=== PATIENT | female | born 1950 | race Caucasian/White ===

== ENCOUNTER 2018-08-09 16:51 | Emergency (ER) | payer OTHER, SELFPAY ==
[2018-08-09] MEDS ORDERED: HYDROCODONE/APAP 10/325 TAB ONE (17:26)
--- NOTE | 2018-08-09 18:05 | RAD REPORT ---
EXAM DESCRIPTION: RAD - Elbow Left 3 View - 08/09/2018 5:42 pm CLINICAL HISTORY: Left elbow pain status post trauma FINDINGS: No fracture or dislocation is seen.
--- NOTE | 2018-08-09 18:06 | RAD REPORT ---
EXAM DESCRIPTION: RAD - Knee Left 3 View - 08/09/2018 5:42 pm CLINICAL HISTORY: Left knee pain status post injury FINDINGS: No fracture or dislocation is seen.
--- NOTE | 2018-08-09 18:24 | RAD REPORT ---
EXAM DESCRIPTION: Ribs Right - 08/09/2018 5:42 pm CLINICAL HISTORY: Right rib pain FINDINGS: No fracture is seen
--- NOTE | 2018-08-09 18:54 | EDPHYS ---
Physician Documentation [facility] Name: Bridgett Gotti Age: 68 yrs Sex: Female : 1950 Arrival Date: 08/09/2018 Time: 16:55 Bed 13 Private MD: ED Physician Andres White HPI: 08/09 17:09 This 68 yrs old Female presents to ER via Ambulatory with complaints of Fall jmm Injury. 17:09 Details of fall: The patient fell from an upright position, while walking. Onset: The jmm symptoms/episode began/occurred acutely, today. Associated injuries: The patient sustained left knee, left elbow, right side of the chest. This is a 68 year old female with a history of DM, HTN, RA, Lupus that presents to the ED after a fall which occurred earlier today. Patient denies head injury. Patient states she tripped over an extension cord, falling on her knees bilaterally. . Historical: - Allergies: 16:59 Bactrim; aj 16:59 Sulfa (Sulfonamide Antibiotics); aj - Home Meds: 16:59 lisinopril 10 mg Oral tab 2 tabs once daily [Active]; Norvasc Oral [Active]; Metformin aj Oral [Active]; Celexa Oral [Active]; - PMHx: 16:59 Diabetes - NIDDM; Hypertension; Rheumatoid Arthritis; Lupus; aj - PSHx: 16:59 Hysterectomy; Toe Surgery; Tonsillectomy; aj - Immunization history: Last tetanus immunization: - up to date. - Social history:: Smoking status: Patient/guardian denies using tobacco. - Ebola Screening: : Patient negative for fever greater than or equal to 101.5 degrees Fahrenheit, and additional compatible Ebola Virus Disease symptoms Patient denies exposure to infectious person Patient denies travel to an Ebola-affected area in the 21 days before illness onset No symptoms or risks identified at this time. ROS: 17:09 Constitutional: Negative for fever, chills, and weight loss. jmm 17:09 Respiratory: Negative for shortness of breath, cough, wheezing, and pleuritic chest pain, Abdomen/GI: Negative for abdominal pain, nausea, vomiting, diarrhea, and constipation. 17:09 Cardiovascular: Positive for chest pain, with movement. 17:09 MS/extremity: Positive for pain. 17:09 All other systems are negative. Exam: 17:09 Head/Face: atraumatic. Cardiovascular: Regular rate and rhythm. No edema appreciated [facility] 17:09 Constitutional: The patient appears in no acute distress, alert, awake. 17:09 Chest/axilla: Inspection: Palpation: tenderness, that is moderate. Vital Signs: 16:56 BP 213 / 113; Pulse 104; Resp 16; Temp 97.6; Pulse Ox 99% on R/A; Weight 85.73 kg; aj Height 5 ft. 1 in. (154.94 cm); 17:08 BP 195 / 84; Pulse 80; Resp 18; Pulse Ox 97% on R/A; hj 17:59 BP 192 / 82; Pulse 84; Resp 18; Pulse Ox 99% on R/A; hj 16:56 Body Mass Index 35.71 (85.73 kg, 154.94 cm) aj Hussein Coma Score: 16:56 Eye Response: spontaneous(4). Verbal Response: oriented(5). Motor Response: obeys aj commands(6). Total: 15. Trauma Score (Adult): 16:56 Eye Response: spontaneous(1); Verbal Response: oriented(1); Motor Response: obeys aj commands(2); Systolic BP: > 89 mm Hg(4); Respiratory Rate: 10 to 29 per min(4); Mamou Score: 15; Trauma Score: 12 MDM: 17:09 Patient medically screened. [facility] 18:50 Data reviewed: vital signs, nurses notes, radiologic studies, plain films. Counseling: courtney I had a detailed discussion with the patient and/or guardian regarding: the historical points, exam findings, and any diagnostic results supporting the discharge/admit diagnosis, radiology results, the need for outpatient follow up, to return to the emergency department if symptoms worsen or persist or if there are any questions or concerns that arise at home. Response to treatment: the patient's symptoms have markedly improved after treatment. ED course: Patient given incentive spirometry in the ED. Return precautions given. Patient understood and agree with the plan of care. . 08/09 17:18 Order name: Elbow Left 3 View XRAY; Complete Time: 18:06 [facility] 08/09 17:18 Order name: Knee Left 3 View XRAY; Complete Time: 18:08 [facility] 08/09 17:18 Order name: Ribs Right XRAY; Complete Time: 18:25 [facility] 08/09 18:27 Order name: INCENTIVE SPIROMETRY [facility] 08/09 18:43 Order name: RC INCENTIVE SPIROMETRY EDPR Administered Medications: 17:18 Drug: [place] 10 mg-325 mg 1 tabs Route: PO; 17:23 Follow up: Response: No adverse reaction; Pain is decreased Disposition: 08/09/18 18:53 Discharged to Home. Impression: Chest Wall Strain, Contusion of knee, Contusion of elbow. - Condition is Stable. - Discharge Instructions: Chest Contusion, Adult, Knee Pain. - Prescriptions for Ultracet 37.5- 325 mg Oral Tablet - take 1 tablet by ORAL route every 6 hours - for up to 5 days; do not exceed 8 tablets per day.; 20 tablet. - Medication Reconciliation Form, Thank You Letter, Antibiotic Education, Prescription Opioid Use form. - Follow up: Private Physician; When: 2 - 3 days; Reason: Recheck today's complaints, Continuance of care, Re-evaluation by your physician. - Notes: Please follow up with your primary care provider in 1 to 2 days for reevaluation. Please use incentive spirometer as directed. Return to the Emergency department if you develop increased pain, shortness of breath. fever or any other concering symptoms. Addendum: 08/12/2018 07:08 Co-signature as Attending Physician, Andres White MD I agree with the assessment and c monae plan of care. Signatures: Dispatcher [employer] EDMS Caroline Rodriguez RN RN aj Anderson, Corey, MD MD cha Mickail, Joel, PA PA [facility] Kevin Johansen RN RN Corrections: (The following items were deleted from the chart) 08/09 19:04 18:53 08/09/2018 18:53 Discharged to Home. Impression: Chest Wall Strain; Contusion of hj knee; Contusion of elbow. Condition is Stable. Forms are Medication Reconciliation Form, Thank You Letter, Antibiotic Education, Prescription Opioid Use. Follow up: Private Physician; When: 2 - 3 days; Reason: Recheck today's complaints, Continuance of care, Re-evaluation by your physician. courtney
--- NOTE | 2018-08-09 18:54 | ER ---
Nurse's Notes [facility] Name: Bridgett Gotti Age: 68 yrs Sex: Female : 1950 Arrival Date: 08/09/2018 Time: 16:55 Bed 13 Private MD: Diagnosis: Chest Wall Strain;Contusion of knee;Contusion of elbow Presentation: 08/09 16:56 Presenting complaint: Patient states: Trip and fall from standing at 1400 today. Pain aj to left knee, right arm, right shoulder, and sternum. Patient drove herself to hospital. Care prior to arrival: None. Mechanism of Injury: Fall from standing position. Trauma event details: Injury occurred in the [facility], Injury occurred: at home. Injury occurred: August 09, 2018 Injury occurred at: 14:00. 16:56 Method Of Arrival: Ambulatory aj 16:56 Acuity: LASHONDA 2 aj 17:07 Transition of care: patient was not received from another setting of care. Onset of hj symptoms was August 09, 2018. Risk Assessment: Do you want to hurt yourself or someone else?. Initial Sepsis Screen: Does the patient meet any 2 criteria? No. Patient's initial sepsis screen is negative. Does the patient have a suspected source of infection? No. Patient's initial sepsis screen is negative. Trauma Activation: Not Applicable Physician: ED Physician; Name: ; Notified At: ; Arrived At: Physician: General Surgeon; Name: ; Notified At: ; Arrived At: Physician: Radiology; Name: ; Notified At: ; Arrived At: Physician: Respiratory; Name: ; Notified At: ; Arrived At: Physician: Lab; Name: ; Notified At: ; Arrived At: Historical: - Allergies: 16:59 Bactrim; aj 16:59 Sulfa (Sulfonamide Antibiotics); aj - Home Meds: 16:59 lisinopril 10 mg Oral tab 2 tabs once daily [Active]; Norvasc Oral [Active]; Metformin aj Oral [Active]; Celexa Oral [Active]; - PMHx: 16:59 Diabetes - NIDDM; Hypertension; Rheumatoid Arthritis; Lupus; aj - PSHx: 16:59 Hysterectomy; Toe Surgery; Tonsillectomy; aj - Immunization history: Last tetanus immunization: - up to date. - Social history:: Smoking status: Patient/guardian denies using tobacco. - Ebola Screening: : Patient negative for fever greater than or equal to 101.5 degrees Fahrenheit, and additional compatible Ebola Virus Disease symptoms Patient denies exposure to infectious person Patient denies travel to an Ebola-affected area in the 21 days before illness onset No symptoms or risks identified at this time. Screenin:05 Abuse screen: Denies threats or abuse. Denies injuries from another. Nutritional hj screening: No deficits noted. Tuberculosis screening: No symptoms or risk factors identified. Fall Risk None identified. Primary Survey: 16:56 A: Airway: patent. Breathing/Chest: Respiratory pattern: regular, Respiratory effort: aj spontaneous, unlabored. Circulation: Skin color: pink, Skin temperature: warm, dry. Disability Alert. 17:06 Reassessment Airway Airway Patent Oxygen No O2 Oral cavity Clear +Gag reflex Trachea hj Midline Breathing/Chest Respiratory pattern Regular Respiratory effort Spontaneous Unlabored Breath sounds Clear Chest inspection Symmetrical Circulation Heart rhythm Sinus rhythm Heart tones Present Pulses Palpable Color Prichard Temperature Warm Dry Disability Alert. Secondary Survey: 16:56 HEENT: No deficits noted. Gastrointestinal: No deficits noted. : No signs and/or hj symptoms were reported regarding the genitourinary system. Musculoskeletal: Reports pain in left leg and right arm and left knee. Assessment: 16:56 General: Appears in no apparent distress. uncomfortable, Behavior is calm, cooperative, aj appropriate for age. Pain: Complains of pain in chest, right arm and left knee. Neuro: Level of Consciousness is awake, alert, obeys commands, Oriented to person, place, time, situation, Appropriate for age. Respiratory: Airway is patent Respiratory effort is even, unlabored, Respiratory pattern is regular, symmetrical. Derm: Skin is intact, is healthy with good turgor, Skin is pink, warm \T\ dry. normal. Musculoskeletal: Reports pain in chest, right arm and left knee. 17:15 Reassessment: Patient and/or family updated on plan of care and expected duration. Pain hj level reassessed. Patient is alert, oriented x 3, equal unlabored respirations, skin warm/dry/pink. xray taken. 18:11 Reassessment: Patient and/or family updated on plan of care and expected duration. Pain hj level reassessed. Patient is alert, oriented x 3, equal unlabored respirations, skin warm/dry/pink. awaiting results;. Vital Signs: 16:56 BP 213 / 113; Pulse 104; Resp 16; Temp 97.6; Pulse Ox 99% on R/A; Weight 85.73 kg; aj Height 5 ft. 1 in. (154.94 cm); 17:08 BP 195 / 84; Pulse 80; Resp 18; Pulse Ox 97% on R/A; hj 17:59 BP 192 / 82; Pulse 84; Resp 18; Pulse Ox 99% on R/A; hj 16:56 Body Mass Index 35.71 (85.73 kg, 154.94 cm) aj Hussein Coma Score: 16:56 Eye Response: spontaneous(4). Verbal Response: oriented(5). Motor Response: obeys aj commands(6). Total: 15. Trauma Score (Adult): 16:56 Eye Response: spontaneous(1); Verbal Response: oriented(1); Motor Response: obeys aj commands(2); Systolic BP: > 89 mm Hg(4); Respiratory Rate: 10 to 29 per min(4); Hussein Score: 15; Trauma Score: 12 ED Course: 16:55 Patient arrived in ED. aj 16:57 Triage completed. aj 16:59 Arm band placed on right wrist. Patient placed in an exam room. aj 17:01 Kevin Johansen, RN is Primary Nurse. hj 17:07 Patient has correct armband on for positive identification. Bed in low position. Call hj light in reach. Side rails up X 1. 17:07 Patient maintains SpO2 saturation greater than 95% on room air. hj 17:08 Devante Best PA is PHCP. [facility] 17:08 Andres White MD is Attending Physician. jmm 17:08 Thermoregulation: warm blanket given to patient. hj 17:39 Elbow Left 3 View XRAY In Process Unspecified. EDMS 17:39 Knee Left 3 View XRAY In Process Unspecified. EDMS 17:39 Ribs Right XRAY In Process Unspecified. EDMS 19:03 No provider procedures requiring assistance completed. Patient did not have IV access hj during this emergency room visit. Administered Medications: 17:18 Drug: [place] 10 mg-325 mg 1 tabs Route: PO; hj 17:23 Follow up: Response: No adverse reaction; Pain is decreased hj Intake: 19:03 PO: 200ml; Total: 200ml. hj Output: 19:03 Urine: 0ml; Total: 0ml. lora Outcome: 18:53 Discharge ordered by . courtney 19:03 Discharged to home ambulatory, with family. lora 19:03 Condition: stable 19:03 Discharge instructions given to patient, family, Instructed on discharge instructions, follow up and referral plans. medication usage, Demonstrated understanding of instructions, follow-up care, medications, Prescriptions given X 2. 19:04 Patient's length of stay was not longer than 2 hours. hj 19:04 Patient left the ED. lora Signatures: Dispatcher [employer] EDCaroline Weiner, RN RN Devante Talley PA PA jmm Joaquin, Henry RN RN lora Corrections: (The following items were deleted from the chart) 16:59 16:56 Acuity: LASHONDA 3 aj audrey
== END 2018-08-09 19:04 | disposition home or self-care (01) ==
LOC: ER 16:51
DX: S29.011A Strain of muscle and tendon of front wall of thorax, initial encounter (principal); S80.02XA Contusion of left knee, initial encounter; S50.02XA Contusion of left elbow, initial encounter; W18.09XA Striking against other object with subsequent fall, initial encounter; Y93.01 Activity, walking, marching and hiking; Y92.9 Unspecified place or not applicable; Z88.1 Allergy status to other antibiotic agents; Z88.2 Allergy status to sulfonamides; I10 Essential (primary) hypertension; E11.9 Type 2 diabetes mellitus without complications
CPT/HCPCS: 99284

== ENCOUNTER 2019-02-22 09:29 | Emergency (ER) | payer OTHER ==
[2019-02-22 10:19] LABS: Urine Blood 1+ (NEG); Urine Glucose TRACE (NEG); Urine Protein TRACE (NEG); Urine Specific Gravity 1.005 (1.005-1.030)
[2019-02-22] MEDS ORDERED: CEFTRIAXONE/SWI 1gm 1 GM/10 ML SYR ONE (10:24)
[2019-02-22] MEDS ORDERED: NA CHLORIDE 0.9% 1,000 ML ONE (10:24)
[2019-02-22] MEDS ORDERED: FENTANYL CITR 100 MCG/2 ML ONE (10:24)
[2019-02-22 10:29] LABS: Absolute Lymphocytes (CBC) 1.8 K/uL (0.7-4.9); Absolute Monocytes 0.6 K/uL (0.1-1.3); Absolute Neutrophil 2.8 K/uL (1.8-8.0); Basophils % 1.6 % (0-1.3); Eosinophils % 1.9 % (0-4.4); Hematocrit 40.7 % (36.0-45.0); Lymphocytes % 33.4 % (15.3-44.8); MPV 9.9 fL (7.6-11.3); Monocytes % 11.5 % (3.3-12.3); RBC Red Blood Cell Count 4.35 M/uL (3.86-4.86)
[2019-02-22 10:38] LABS: Urine Bacteria 20-50 /HPF (<20); Urine RBC <5 /HPF (NONE SEEN)
[2019-02-22 10:39] LABS: Urine Culture Reflex Order NOT NEEDED
[2019-02-22 10:39] LABS: Potassium 4.2 mmol/L (3.5-5.1)
--- NOTE | 2019-02-22 11:31 | RAD REPORT ---
EXAM DESCRIPTION: CT - Stone Protocol - 02/22/2019 11:15 am CLINICAL HISTORY: Flank pain. FLANK PAIN COMPARISON: Abdomen Pelvis Wo Contrast dated 05/05/2017 TECHNIQUE: Axial images were obtained without oral or IV contrast. Lack of contrast limits solid org an and vascular assessment. The [id number] spans the entirety of the system partially obscuring uppermost abdomen and lung bases. Coronal reformatted images were obtained and reviewed. All CT scans are performed using dose optimization technique as appropriate and may include automated exposure control or mA/KV adjustment according to patient size. FINDINGS: The lower lung winston are clear. The liver is mildly enlarged in size and nodular in contour suggesting underlying cirrhosis, mild. Th e spleen is normal in size. The pancreas and adrenal glands are normal. No pathologic lymphadenopathy in the abdomen or pelvis. No urinary tract stones or obstructive uropathy. No bowel obstruction, free air, free fluid or abscess. The appendix is not identified as a discrete s tructure, however, no secondary findings of appendicitis are identified. Moderate lumbosacral degenerative changes. IMPRESSION: No urinary tract stones or obstructive uropathy. Mild liver cirrhosis suspected.
[2019-02-22] MEDS ORDERED: KETOROLAC 30 MG/ML INJ ONE (11:58)
--- NOTE | 2019-02-22 12:48 | ER ---
Nurse's Notes [facility] Name: Bridgett Gotti Age: 68 yrs Sex: Female : 1950 Arrival Date: 02/22/2019 Time: 09:31 Bed 15 Private MD: Dudley Valero E Diagnosis: Urinary tract infection, site not specified;Muscle spasm of back Presentation: 02/22 09:39 Presenting complaint: Patient states: i am being treated for a kidney infection but tw2 last night my lower back on the right side started hurting. Transition of care: patient was not received from another setting of care. Onset of symptoms was February 22, 2019. Risk Assessment: Do you want to hurt yourself or someone else? Patient reports no desire to harm self or others. Initial Sepsis Screen: Does the patient meet any 2 criteria? No. Patient's initial sepsis screen is negative. Does the patient have a suspected source of infection? No. Patient's initial sepsis screen is negative. Care prior to arrival: None. 09:39 Method Of Arrival: Wheelchair tw2 09:39 Acuity: LASHONDA 3 tw2 Historical: - Allergies: 09:45 Sulfa (Sulfonamide Antibiotics); tw2 09:45 Bactrim; tw2 - Home Meds: 09:45 Lasix 20 mg Oral tab 1 tab once daily [Active]; lisinopril 20 mg Oral tab 1 tab once tw2 daily [Active]; Norvasc 10 mg Oral tab 1 tab once daily [Active]; metoprolol tartrate 50 mg Oral tab 1 tab once daily [Active]; metformin 1,000 mg Oral tr24 1 tab once daily [Active]; Trintellix 10 mg oral tab 1 tab once daily [Active]; nitrofurantoin macrocrystal 100 mg Oral cap 1 cap 2 times daily [Active]; melatonin 10 mg Oral tab [Active]; - PMHx: 09:45 Diabetes - NIDDM; Hypertension; Rheumatoid Arthritis; Lupus; tw2 - PSHx: 09:45 Toe Surgery; Hysterectomy; Tonsillectomy; tw2 - Immunization history:: Adult Immunizations. - Social history:: Smoking status: . - Ebola Screening: : Patient denies travel to an Ebola-affected area in the 21 days before illness onset. Screenin:10 Abuse screen: Denies threats or abuse. Nutritional screening: No deficits noted. tw2 Tuberculosis screening: No symptoms or risk factors identified. Fall Risk None identified. Assessment: 09:40 General: Appears uncomfortable, Behavior is calm, cooperative, appropriate for age. tw2 Pain: Complains of pain in left mid back and right mid back and right lower quadrant. Neuro: Level of Consciousness is awake, alert, obeys commands, Oriented to person, place, time, situation. Cardiovascular: Heart tones S1 S2 Patient's skin is warm and dry. Respiratory: Airway is patent Respiratory effort is even, unlabored, Respiratory pattern is regular, symmetrical, Breath sounds are clear bilaterally. GI: Reports lower abdominal pain. : No signs and/or symptoms were reported regarding the genitourinary system. EENT: No signs and/or symptoms were reported regarding the EENT system. Derm: No signs and/or symptoms reported regarding the dermatologic system. Musculoskeletal: Circulation, motion, and sensation intact. Range of motion: intact in all extremities, Reports pain in left mid back and right mid back. 11:02 Reassessment: Patient appears in no apparent distress at this time. Patient and/or tw2 family updated on plan of care and expected duration. Pain level reassessed. Patient is alert, oriented x 3, equal unlabored respirations, skin warm/dry/pink. 12:09 Reassessment: Patient appears in no apparent distress at this time. Patient and/or tw2 family updated on plan of care and expected duration. Pain level reassessed. Patient is alert, oriented x 3, equal unlabored respirations, skin warm/dry/pink. 13:15 Reassessment: Patient appears in no apparent distress at this time. Patient and/or tw2 family updated on plan of care and expected duration. Pain level reassessed. Patient is alert, oriented x 3, equal unlabored respirations, skin warm/dry/pink. Patient states feeling better. Vital Signs: 09:41 BP 166 / 87; Pulse 84; Resp 19; Temp 97.9(O); Pulse Ox 98% on R/A; Weight 83.46 kg (R); tw2 Height 5 ft. 1 in. (154.94 cm); Pain 10/10; 11:02 BP 169 / 79; Pulse 84; Resp 17; Pulse Ox 98% on R/A; tw2 12:09 BP 153 / 76; Pulse 82; Resp 17; Pulse Ox 98% on R/A; tw2 13:14 BP 150 / 76; Pulse 79; Resp 17; Pulse Ox 98% on R/A; Pain 6/10; tw2 09:41 Body Mass Index 34.77 (83.46 kg, 154.94 cm) tw2 ED Course: 09:31 Patient arrived in ED. rg4 09:31 Sadiq Mercado MD is Private Physician. rg4 09:31 Dudley Valero MD is Private Physician. rg4 09:33 Leah Hou FNP-C [facility]. snw 09:33 Zhao Madera MD is Attending Physician. snw 09:35 Bed in low position. Call light in reach. documentation manager on. Pulse ox on. NIBP on. tw2 09:39 Stephy Olivera, ILAN is Primary Nurse. tw2 09:41 Triage completed. tw2 09:41 Arm band placed on. tw2 10:00 Straight cath inserted, using sterile technique, 18 Fr. Specimen obtained. [employer] tw2 served as entry processor Returned clear yellow urine. Patient tolerated well. 10:15 Initial lab(s) drawn, by me, sent to lab. First set of blood cultures drawn by me. mh5 10:50 Inserted saline lock: 22 gauge in right forearm, using aseptic technique. Blood tw2 collected. 11:15 CT completed. Patient tolerated procedure well. Patient moved back from CT. bq 11:16 CT Stone Protocol In Process Unspecified. EDMS 12:47 Dudley Valero MD is Referral Physician. snw 13:16 No provider procedures requiring assistance completed. IV discontinued, intact, tw2 bleeding controlled, No redness/swelling at site. Pressure dressing applied. Administered Medications: 10:17 Drug: fentaNYL (PF) 50 mcg Route: IVP; Site: right forearm; tw2 11:46 Follow up: Response: No adverse reaction; Pain is unchanged, physician notified tw2 10:20 Drug: Rocephin 1 grams Route: IV; Rate: calculated rate; Site: right forearm; tw2 10:27 Follow up: Response: No adverse reaction; IV Status: Completed infusion tw2 10:29 Drug: NS 0.9% 1000 ml Route: IV; Rate: 1 bolus; Site: right forearm; tw2 12:15 Follow up: Response: No adverse reaction; IV Status: Completed infusion; IV Intake: tw2 1000ml 11:51 Drug: TORadol 30 mg Route: IVP; Site: right forearm; tw2 13:14 Follow up: Response: No adverse reaction; Pain is decreased tw2 Intake: 12:15 IV: 1000ml; Total: 1000ml. tw2 Outcome: 12:48 Discharge ordered by MD. garnica 13:17 Discharged to home ambulatory. tw2 13:17 Condition: stable 13:17 Discharge instructions given to patient, Instructed on discharge instructions, follow up and referral plans. no drinking with medication, no driving heavy equipment, medication usage, Demonstrated understanding of instructions, follow-up care, medications, Prescriptions given X 2. 13:17 Patient left the ED. tw2 Signatures: Dispatcher [employer] EDMS Leah Hou, ERNESTO-C CHEMICAL ENGINEER-CsnRoya Calero Tara, RN RN tw2 Maya Vincent 4 Veronica Finch [facility] Corrections: (The following items were deleted from the chart) 13:17 10:18 Patient did not have IV access during this emergency room visit. IV discontinued, tw2 Pressure dressing applied, mh5
--- NOTE | 2019-02-22 12:48 | EDPHYS ---
Physician Documentation [facility] Name: Bridgett Gotti Age: 68 yrs Sex: Female : 1950 Arrival Date: 02/22/2019 Time: 09:31 Bed 15 Private MD: Dudley Valero E ED Physician Zhao Madera HPI: 02/22 10:28 This 68 yrs old Female presents to ER via Wheelchair with complaints of Back snw Pain. 10:28 The patient presents with pain that is acute, with no known mechanism of injury. The snw symptoms are located in the left mid back. Onset: The symptoms/episode began/occurred suddenly, 6 day(s) ago, and became worse today, and became persistent. The pain radiates to the posterior aspect of right lateral abdomen and right lower quadrant. Associated signs and symptoms: Pertinent positives: dysuria. The problem was sustained pt went to PCP 2nd to UTI s/s, low grade temp, back pain. Pt was dx with UTI and given Macrobid po. Severity of symptoms: At their worst the symptoms were moderate. The patient has experienced similar episodes in the past. as noted. Historical: - Allergies: 09:45 Sulfa (Sulfonamide Antibiotics); tw2 09:45 Bactrim; tw2 - Home Meds: 09:45 Lasix 20 mg Oral tab 1 tab once daily [Active]; lisinopril 20 mg Oral tab 1 tab once tw2 daily [Active]; Norvasc 10 mg Oral tab 1 tab once daily [Active]; metoprolol tartrate 50 mg Oral tab 1 tab once daily [Active]; metformin 1,000 mg Oral tr24 1 tab once daily [Active]; Trintellix 10 mg oral tab 1 tab once daily [Active]; nitrofurantoin macrocrystal 100 mg Oral cap 1 cap 2 times daily [Active]; melatonin 10 mg Oral tab [Active]; - PMHx: 09:45 Diabetes - NIDDM; Hypertension; Rheumatoid Arthritis; Lupus; tw2 - PSHx: 09:45 Toe Surgery; Hysterectomy; Tonsillectomy; tw2 - Immunization history:: Adult Immunizations. - Social history:: Smoking status: . - Ebola Screening: : Patient denies travel to an Ebola-affected area in the 21 days before illness onset. ROS: 10:26 Eyes: Negative for injury, pain, redness, and discharge, ENT: Negative for injury, snw pain, and discharge, Neck: Negative for injury, pain, and swelling, Cardiovascular: Negative for chest pain, palpitations, and edema, Respiratory: Negative for shortness of breath, cough, wheezing, and pleuritic chest pain, : Negative for injury, bleeding, discharge, and swelling, MS/Extremity: Negative for injury and deformity, Skin: Negative for injury, rash, and discoloration, Neuro: Negative for headache, weakness, numbness, tingling, and seizure. 10:26 Constitutional: Positive for body aches, fever, malaise, poor PO intake. 10:26 Abdomen/GI: Positive for abdominal cramps. 10:26 Back: Positive for flank pain, on the right, radiated pain. Exam: 10:26 Constitutional: This is a well developed, well nourished patient who is awake, alert, snw and in no acute distress. Head/Face: Normocephalic, atraumatic. Eyes: Pupils equal round and reactive to light, extra-ocular motions intact. Lids and lashes normal. Conjunctiva and sclera are non-icteric and not injected. Cornea within normal limits. Periorbital areas with no swelling, redness, or edema. ENT: Nares patent. No nasal discharge, no septal abnormalities noted. Tympanic membranes are normal and external auditory canals are clear. Oropharynx with no redness, swelling, or masses, exudates, or evidence of obstruction, uvula midline. Mucous membranes moist. Neck: Trachea midline, no thyromegaly or masses palpated, and no cervical lymphadenopathy. Supple, full range of motion without nuchal rigidity, or vertebral point tenderness. No Meningismus. Chest/axilla: Normal chest wall appearance and motion. Nontender with no deformity. No lesions are appreciated. Cardiovascular: Regular rate and rhythm with a normal S1 and S2. No gallops, murmurs, or rubs. Normal PMI, no JVD. No pulse deficits. Respiratory: Lungs have equal breath sounds bilaterally, clear to auscultation and percussion. No rales, rhonchi or wheezes noted. No increased work of breathing, no retractions or nasal flaring. Skin: Warm, dry with normal turgor. Normal color with no rashes, no lesions, and no evidence of cellulitis. MS/ Extremity: Pulses equal, no cyanosis. Neurovascular intact. Full, normal range of motion. Neuro: Awake and alert, GCS 15, oriented to person, place, time, and situation. Cranial nerves II-XII grossly intact. Motor strength 5/5 in all extremities. Sensory grossly intact. Cerebellar exam normal. Normal gait. Psych: Awake, alert, with orientation to person, place and time. Behavior, mood, and affect are within normal limits. 10:26 Abdomen/GI: Inspection: abdomen appears normal, Bowel sounds: normal, Palpation: mild abdominal tenderness, in the posterior aspect of right lateral abdomen and right lower quadrant. 10:26 Back: pain, that is moderate, of the right mid back. Vital Signs: 09:41 BP 166 / 87; Pulse 84; Resp 19; Temp 97.9(O); Pulse Ox 98% on R/A; Weight 83.46 kg (R); tw2 Height 5 ft. 1 in. (154.94 cm); Pain 10/10; 11:02 BP 169 / 79; Pulse 84; Resp 17; Pulse Ox 98% on R/A; tw2 12:09 BP 153 / 76; Pulse 82; Resp 17; Pulse Ox 98% on R/A; tw2 13:14 BP 150 / 76; Pulse 79; Resp 17; Pulse Ox 98% on R/A; Pain 6/10; tw2 09:41 Body Mass Index 34.77 (83.46 kg, 154.94 cm) tw2 MDM: 09:40 Patient medically screened. snw 12:49 Data reviewed: vital signs, nurses notes. Data interpreted: Pulse oximetry: on room air snw is 98 %. Interpretation: normal. Counseling: I had a detailed discussion with the patient and/or guardian regarding: the historical points, exam findings, and any diagnostic results supporting the discharge/admit diagnosis, the presence of at least one elevated blood pressure reading (>120/80) during this emergency department visit, lab results, radiology results, the need for outpatient follow up, to return to the emergency department if symptoms worsen or persist or if there are any questions or concerns that arise at home. Special discussion: Based on the patient's Hx, exam, and Dx evaluation, there is no indication for emergent surgery or inpatient Tx. It is understood by the patient/guardian that if the Sx's persist or worsen they need to return immediately for re-evaluation. I have referred the patient to see his PCP for further evaluation of high blood pressure. Based on the history and exam findings, there is no indication for further emergent testing or inpatient evaluation. I discussed with the patient/guardian the need to see the primary care provider for further evaluation of the symptoms. 02/22 09:34 Order name: Urine Culture snw 02/22 09:34 Order name: Urine Microscopic Only; Complete Time: 10:49 snw 02/22 09:51 Order name: CBC with Diff; Complete Time: 10:49 snw 02/22 09:51 Order name: Chem 7; Complete Time: 10:49 snw 02/22 09:51 Order name: Blood Culture Adult (2) snw 02/22 09:51 Order name: Procalcitonin; Complete Time: 10:54 snw 02/22 09:34 Order name: Urine Dipstick-Ancillary (obtain specimen); Complete Time: 10:09 snw 02/22 09:45 Order name: Straight Cath; Complete Time: 10:09 tw2 02/22 10:10 Order name: Urine Dipstick--Ancillary (enter results); Complete Time: 10:25 eb 02/22 10:49 Order name: CT Stone Protocol; Complete Time: 11:37 snw Administered Medications: 10:17 Drug: fentaNYL (PF) 50 mcg Route: IVP; Site: right forearm; tw2 11:46 Follow up: Response: No adverse reaction; Pain is unchanged, physician notified tw2 10:20 Drug: Rocephin 1 grams Route: IV; Rate: calculated rate; Site: right forearm; tw2 10:27 Follow up: Response: No adverse reaction; IV Status: Completed infusion tw2 10:29 Drug: NS 0.9% 1000 ml Route: IV; Rate: 1 bolus; Site: right forearm; tw2 12:15 Follow up: Response: No adverse reaction; IV Status: Completed infusion; IV Intake: tw2 1000ml 11:51 Drug: TORadol 30 mg Route: IVP; Site: right forearm; tw2 13:14 Follow up: Response: No adverse reaction; Pain is decreased tw2 Disposition: 13:57 Co-signature as Attending Physician, Zhao Madera MD. rn Disposition: 02/22/19 12:48 Discharged to Home. Impression: Urinary tract infection, site not specified, Muscle spasm of back. - Condition is Stable. - Discharge Instructions: Back Pain, Adult, Hypertension, Muscle Cramps and Spasms, Urinary Tract Infection, Adult, Cryotherapy, Rehydration, Adult, Heat Therapy. - Prescriptions for Augmentin 875- 125 mg Oral Tablet - take 1 tablet by ORAL route every 12 hours for 10 days; 20 tablet. orphenadrine citrate 100 mg Oral Tablet Sustained Release - take 1 tablet by ORAL route 2 times per day As needed; 20 tablet. - Medication Reconciliation Form, Thank You Letter, Antibiotic Education, Prescription Opioid Use form. - Follow up: Dudley Valero MD; When: 5 - 6 days; Reason: Recheck today's complaints, Continuance of care, Re-evaluation by your physician. Follow up: Emergency Department; When: As needed; Reason: Worsening of condition. - Notes: Continue Macrobid as directed Signatures: Dispatcher [employer] EDMS Leah Hou, OPEN TENTER OPERATOR-C OPEN TENTER OPERATOR-Csnw Zhao Madera MD MD rn Wise, Tara, RN RN tw2 Corrections: (The following items were deleted from the chart) 13:17 12:48 02/22/2019 12:48 Discharged to Home. Impression: Urinary tract infection, site tw2 not specified; Muscle spasm of back. Condition is Stable. Forms are Medication Reconciliation Form, Thank You Letter, Antibiotic Education, Prescription Opioid Use. Follow up: Dudley Valero; When: 5 - 6 days; Reason: Recheck today's complaints, Continuance of care, Re-evaluation by your physician. Follow up: Emergency Department; When: As needed; Reason: Worsening of condition. snw
== END 2019-02-22 13:17 | disposition home or self-care (01) ==
LOC: ER 09:29
DX: N39.0 Urinary tract infection, site not specified (principal); M62.830 Muscle spasm of back; I10 Essential (primary) hypertension; E11.9 Type 2 diabetes mellitus without complications; Z88.1 Allergy status to other antibiotic agents; Z88.2 Allergy status to sulfonamides
CPT/HCPCS: 96361; 87040 ×2; 87088; 85025; 87086; 80048; 36415; 84145; 76377; 74176; 51702; 96375; 96374; 99285; J3010; J0696; J7030; 81003; 81015

== ENCOUNTER 2019-10-17 10:47 | Inpatient (IN) | payer OTHER ==
--- NOTE | 2019-10-17 12:22 | ER ---
Nurse's Notes [facility] Name: Bridgett Gotti Age: 69 yrs Sex: Female : 1950 Arrival Date: 10/17/2019 Time: 10:51 Bed 2 Private MD: Diagnosis: Cellulitis of right lower limb Presentation: 10/17 10:51 Presenting complaint: Patient states: right leg sore for a couple of weeks and has seen sv her PCP, started with right calf pain x 1 week. Transition of care: patient was not received from another setting of care. Onset of symptoms was September 2019. Care prior to arrival: None. 10:51 Method Of Arrival: Wheelchair sv 10:51 Acuity: LASHONDA 2 sv 11:09 Risk Assessment: Do you want to hurt yourself or someone else? Patient reports no ph desire to harm self or others. Initial Sepsis Screen: Does the patient meet any 2 criteria? RR > 20 per min. Does the patient have a suspected source of infection? Yes: Skin breakdown/wound. Historical: - Allergies: 10:52 Bactrim; sv 10:52 Sulfa (Sulfonamide Antibiotics); sv 10:52 Doxycycline; sv - Home Meds: 15:26 lisinopril 20 mg Oral tab 1 tab once daily [Active]; metformin 1,000 mg oral tab 1 tab ph 2 times per day [Active]; amlodipine 10 mg tab 1 tab once daily [Active]; clonidine HCl 0.1 mg Oral tab as needed [Active]; Lasix 20 mg Oral tab 1 tab once daily [Active]; metoprolol tartrate 100 mg oral tab 1 tab once daily [Active]; melatonin 10 mg Oral tab [Active]; Klonopin 1 mg Oral tab 1 tab 3 times per day for PRN for anxiety [Active]; Cymbalta 30 mg oral cpDR 1 cap once daily [Active]; - PMHx: 10:52 Diabetes - NIDDM; Hypertension; Lupus; Rheumatoid Arthritis; sv - PSHx: 10:52 Toe Surgery; Hysterectomy; Tonsillectomy; sv - Immunization history:: Adult Immunizations unknown. - Social history:: Smoking status: Patient/guardian denies using tobacco. - Ebola Screening: : No symptoms or risks identified at this time. Screenin:09 Abuse screen: Denies threats or abuse. Denies injuries from another. Nutritional ph screening: No deficits noted. Tuberculosis screening: No symptoms or risk factors identified. Fall Risk None identified. Assessment: 11:06 General: Appears in no apparent distress. uncomfortable, well groomed, Behavior is ph calm, cooperative, appropriate for age, Reports fever for low grade x 1 day. Pain: Complains of pain in medial aspect of right calf. Neuro: Level of Consciousness is awake, alert, obeys commands, Oriented to person, place, time, situation. Cardiovascular: Capillary refill < 3 seconds in bilateral fingers Patient's skin is warm and dry. Respiratory: Airway is patent Respiratory effort is even, unlabored, Respiratory pattern is regular, symmetrical. GI: Reports nausea, Patient currently denies abdominal pain, diarrhea, vomiting. Derm: Skin is healthy with good turgor, Skin is pink, warm \T\ dry. Wound noted medial aspect of right calf Wound is wound to inner aspect of R lower leg near ankle, open and draining, redness and swelling also noted to area, pt reports that pain radiates up into calve. Musculoskeletal: Circulation, motion, and sensation intact. 12:30 Reassessment: Pt in radiology for US. ph 13:28 Reassessment: Patient appears in no apparent distress at this time. Patient and/or ph family updated on plan of care and expected duration. Pain level reassessed. Patient is alert, oriented x 3, equal unlabored respirations, skin warm/dry/pink. Pt requesting pain ,medication for R leg pain, ERP notified and verbal order received, see MAR. 14:53 Reassessment: Patient appears in no apparent distress at this time. Patient and/or ph family updated on plan of care and expected duration. Pain level reassessed. Patient is alert, oriented x 3, equal unlabored respirations, skin warm/dry/pink. Hospitalist at bedside to speak w/ pt, awaiting room assignment. 16:35 Reassessment: Patient appears in no apparent distress at this time. Patient and/or ph family updated on plan of care and expected duration. Pain level reassessed. Patient is alert, oriented x 3, equal unlabored respirations, skin warm/dry/pink. Attempted to call report to second floor, no answer at nurses station, will attempt again. 16:50 Reassessment: Attempted to call report, receiving nurse unavailable, was told that she ph will call back. Vital Signs: 10:52 BP 193 / 86; Pulse 83; Resp 22; Temp 98.7(O); Pulse Ox 100% ; Weight 83.46 kg; Height 5 sv ft. 1 in. (154.94 cm); Pain 10/10; 12:20 ph 13:30 BP 177 / 87; Pulse 69; Resp 18; Pulse Ox 100% on R/A; ph 14:30 BP 164 / 78; Pulse 72; Resp 16; Pulse Ox 98% on R/A; ph 15:30 BP 169 / 90; Pulse 76; Resp 18; Pulse Ox 99% on R/A; ph 16:29 BP 151 / 73; Pulse 76; Resp 18; Temp 98.4; Pulse Ox 99% on R/A; ph 17:18 BP 145 / 74; Pulse 81; Resp 18; Temp 98.0; Pulse Ox 100% on R/A; ph 10:52 Body Mass Index 34.77 (83.46 kg, 154.94 cm) sv 12:20 pt in radiology ED Course: 10:51 Patient arrived in ED. sv 10:52 Triage completed. sv 10:54 Arm band placed on. sv 10:56 Mildred Dhillon, ILAN is Primary Nurse. ph 11:03 Tono Patrick MD is Attending Physician. kdr 11:10 Patient has correct armband on for positive identification. Bed in low position. Call ph light in reach. Side rails up X 1. Pulse ox on. NIBP on. Door closed. Noise minimized. 12:18 Jean Melendrez DO is Hospitalizing Provider. kdr 13:18 Initial lab(s) drawn, by sd, sent to lab. Inserted saline lock: 20 gauge in right lt1 antecubital area, using aseptic technique. 13:19 Chem 7 Sent. lt1 13:19 CBC with Diff Sent. lt1 13:24 US Extremity Venous Unilateral Ltd In Process Unspecified. EDMS 13:57 Manual Differential Sent. em 16:31 No provider procedures requiring assistance completed. Patient admitted, IV remains in ph place. Administered Medications: 13:24 Drug: [place] (7.5 mg-325 mg) 1 tabs Route: PO; ph 14:30 Follow up: Response: No adverse reaction; Pain is decreased ph 14:00 Drug: vancoMYCIN 1 grams Route: IVPB; Infused Over: 2 hrs; Site: right antecubital; ph 16:00 Follow up: Response: No adverse reaction; IV Status: Completed infusion; IV Intake: ph 250ml Intake: 16:00 IV: 250ml; Total: 250ml. ph Outcome: 12:21 Decision to Hospitalize by Provider. kdr 17:39 Patient left the ED. ph 17:39 Admitted to Med/surg accompanied by tech, via wheelchair, with chart. ph 17:39 Condition: stable 17:39 Instructed on the need for admit. Signatures: Dispatcher [employer] Sandy Weir, RN RN sv Tono Patrick MD MD kdr Dago Barrera, SYLWIA CORDWAINER Mildred Pierce RN RN Tafoya, Rosy lt1 Corrections: (The following items were deleted from the chart) 10:54 10:51 Acuity: LASHONDA 3 sv sv
--- NOTE | 2019-10-17 12:22 | EDPHYS ---
Physician Documentation [facility] Name: Bridgett Gotti Age: 69 yrs Sex: Female : 1950 Arrival Date: 10/17/2019 Time: 10:51 Bed 2 Private MD: ED Physician Tono Patrick HPI: 10/17 13:03 This 69 yrs old Female presents to ER via Wheelchair with complaints of right kdr lower leg pain and swelling. 13:03 The patient presents with an abscess, moderate-sized, pain, that is acute, swelling, kdr tenderness. The complaints affect the medial aspect of right calf. Context: The problem was sustained at home, resulted from an unknown cause, the patient can fully bear weight, the patient is able to ambulate, with mild difficulty, Problem is a result from a previous injury: No. The patient had been seen by her PCP told it may be related to vascular issues (venous). She was started on abx (Clinda) but still has swelling and pain. Onset: The symptoms/episode began/occurred acutely, gradually, 2 week(s) ago. Modifying factors: The symptoms are alleviated by nothing. the symptoms are aggravated by movement, weight bearing. Associated signs and symptoms: Pertinent positives: fever, subjective. Treatment prior to arrival includes: prescription medications, Clinda. Severity of symptoms: At their worst the symptoms were mild, in the emergency department the symptoms are unchanged. The patient has not experienced similar symptoms in the past. The patient has been recently seen by a physician: the patient's primary care provider. Historical: - Allergies: 10:52 Bactrim; sv 10:52 Sulfa (Sulfonamide Antibiotics); sv 10:52 Doxycycline; sv - Home Meds: 15:26 lisinopril 20 mg Oral tab 1 tab once daily [Active]; metformin 1,000 mg oral tab 1 tab ph 2 times per day [Active]; amlodipine 10 mg tab 1 tab once daily [Active]; clonidine HCl 0.1 mg Oral tab as needed [Active]; Lasix 20 mg Oral tab 1 tab once daily [Active]; metoprolol tartrate 100 mg oral tab 1 tab once daily [Active]; melatonin 10 mg Oral tab [Active]; Klonopin 1 mg Oral tab 1 tab 3 times per day for PRN for anxiety [Active]; Cymbalta 30 mg oral cpDR 1 cap once daily [Active]; - PMHx: 10:52 Diabetes - NIDDM; Hypertension; Lupus; Rheumatoid Arthritis; sv - PSHx: 10:52 Toe Surgery; Hysterectomy; Tonsillectomy; sv - Immunization history:: Adult Immunizations unknown. - Social history:: Smoking status: Patient/guardian denies using tobacco. - Ebola Screening: : No symptoms or risks identified at this time. ROS: 13:03 Constitutional: Negative for objective fever, chills, and weight loss - she has flet kdr dlightly diaphoretic Eyes: Negative for injury, pain, redness, and discharge, Neck: Negative for injury, pain, and swelling, Cardiovascular: Negative for chest pain, palpitations, and edema, Respiratory: Negative for shortness of breath, cough, wheezing, and pleuritic chest pain, Abdomen/GI: Negative for abdominal pain, nausea, vomiting, diarrhea, and constipation, Back: Negative for injury and pain, : Negative for injury, bleeding, discharge, and swelling, Neuro: Negative for headache, weakness, numbness, tingling, and seizure activity. Psych: Negative for depression, anxiety, suicide ideation, homicidal ideation, and hallucinations, Allergy/Immunology: Negative for hives, rash, and allergies, Endocrine: Negative for neck swelling, polydipsia, polyuria, polyphagia, and marked weight changes. 13:03 Skin: Positive for cellulitis, erythema, swelling, ulceration. Exam: 13:03 Constitutional: This is a well developed, well nourished patient who is awake, alert, kdr and in no acute distress. Head/Face: Normocephalic, atraumatic. Neck: Trachea midline, no thyromegaly or masses palpated, and no cervical lymphadenopathy. Supple, full range of motion without nuchal rigidity, or vertebral point tenderness. No Meningismus. Chest/axilla: Normal chest wall appearance and motion. Nontender with no deformity. No lesions are appreciated. Cardiovascular: Regular rate and rhythm with a normal S1 and S2. No gallops, murmurs, or rubs. Normal PMI, no JVD. No pulse deficits. Respiratory: Lungs have equal breath sounds bilaterally, clear to auscultation and percussion. No rales, rhonchi or wheezes noted. No increased work of breathing, no retractions or nasal flaring. Abdomen/GI: Soft, non-tender, with normal bowel sounds. No distension or tympany. No guarding or rebound. No evidence of tenderness throughout. Back: No spinal tenderness. No costovertebral tenderness. Full range of motion. Neuro: Awake and alert, GCS 15, oriented to person, place, time, and situation. Cranial nerves II-XII grossly intact. Motor strength 5/5 in all extremities. Sensory grossly intact. Cerebellar exam normal. Normal gait. Psych: Awake, alert, with orientation to person, place and time. Behavior, mood, and affect are within normal limits. 13:03 Skin: cellulitis, that is mild, confluent, well demarcated, on the medial aspect of right calf, induration, that is mild is noted, injury. Vital Signs: 10:52 BP 193 / 86; Pulse 83; Resp 22; Temp 98.7(O); Pulse Ox 100% ; Weight 83.46 kg; Height 5 sv ft. 1 in. (154.94 cm); Pain 10/10; 12:20 ph 13:30 BP 177 / 87; Pulse 69; Resp 18; Pulse Ox 100% on R/A; ph 14:30 BP 164 / 78; Pulse 72; Resp 16; Pulse Ox 98% on R/A; ph 15:30 BP 169 / 90; Pulse 76; Resp 18; Pulse Ox 99% on R/A; ph 16:29 BP 151 / 73; Pulse 76; Resp 18; Temp 98.4; Pulse Ox 99% on R/A; ph 17:18 BP 145 / 74; Pulse 81; Resp 18; Temp 98.0; Pulse Ox 100% on R/A; ph 10:52 Body Mass Index 34.77 (83.46 kg, 154.94 cm) sv 12:20 pt in radiology ph MDM: 12:21 Patient medically screened. kdr 13:03 Data reviewed: vital signs, nurses notes, lab test result(s). Counseling: I had a kdr detailed discussion with the patient and/or guardian regarding: the historical points, exam findings, and any diagnostic results supporting the discharge/admit diagnosis, lab results, the need for further work-up and treatment in the hospital. 10/17 12:06 Order name: CBC with Diff kdr 10/17 12:06 Order name: Chem 7 kdr 10/17 12:06 Order name: Blood Culture Adult (2) kdr 10/17 12:06 Order name: US Extremity Venous Unilateral Ltd; Complete Time: 13:49 kdr 10/17 13:41 Order name: Manual Differential EDMS 10/17 14:55 Order name: Wound Culture ph 10/17 15:32 Order name: CONS Physician Consult EDMS Administered Medications: 13:24 Drug: [place] (7.5 mg-325 mg) 1 tabs Route: PO; ph 14:30 Follow up: Response: No adverse reaction; Pain is decreased ph 14:00 Drug: vancoMYCIN 1 grams Route: IVPB; Infused Over: 2 hrs; Site: right antecubital; ph 16:00 Follow up: Response: No adverse reaction; IV Status: Completed infusion; IV Intake: ph 250ml Disposition: 10/17/19 12:21 Hospitalization ordered by Jean Melendrez for Inpatient Admission. Preliminary diagnosis is Cellulitis of right lower limb. - Bed requested for Telemetry/MedSurg (Inpatient). - Status is Inpatient Admission. ph - Condition is Fair. - Problem is an ongoing problem. - Symptoms are unchanged. UTI on Admission? No Signatures: Dispatcher [employer] EDWV Sandy Frias RN RN sv Devika Peter RN RN dw Tono Patrick MD MD kdr Mildred Dhillon RN RN ph Corrections: (The following items were deleted from the chart) 16:27 12:21 Hospitalization Ordered by Jean Melendrez DO for Inpatient Admission. Preliminary dw diagnosis is Cellulitis of right lower limb. Bed requested for Telemetry/MedSurg (Inpatient). Status is Inpatient Admission. Condition is Fair. Problem is an ongoing problem. Symptoms are unchanged. UTI on Admission? No. kdr 17:39 16:27 10/17/2019 12:21 Hospitalization Ordered by Jean Melendrez DO for Inpatient ph Admission. Preliminary diagnosis is Cellulitis of right lower limb. Bed requested for Telemetry/MedSurg (Inpatient). Status is Inpatient Admission. Condition is Fair. Problem is an ongoing problem. Symptoms are unchanged. UTI on Admission? No. dw
[2019-10-17] MEDS ORDERED: HYDROCODONE/APAP 7.5/325 MG TAB ONE (13:19)
[2019-10-17 13:31] LABS: Absolute Lymphocytes (CBC) 1.5 K/uL (0.7-4.9); Basophils % 1.2 % (0-1.3); Hematocrit 39.8 % (36.0-45.0); Lymphocytes % 32.3 % (15.3-44.8); MPV 9.1 fL (7.6-11.3); RBC Red Blood Cell Count 4.22 M/uL (3.86-4.86)
--- NOTE | 2019-10-17 13:31 | RAD REPORT ---
EXAM DESCRIPTION: USExtmary beth [facility]10/17/2019 1:24 pm CLINICAL HISTORY: Right leg pain and swelling. COMPARISON: None. FINDINGS: Right common femoral, superficial femoral, popliteal and right posterior tibial veins are compressible and demonstrate augmentation. Doppler demonstrates good flow. Small echogenic material is present within the periphery of the right popliteal and right posterior v eins probably the sequela of prior chronic thrombus. IMPRESSION: No evidence of acute deep venous thrombosis involving the right lower extremity.
[2019-10-17 13:52] LABS: BUN Blood Urea Nitrogen 9 mg/dL (7-18); Bicarbonate 29 mmol/L (21-32); Glucose Level 143 mg/dL (74-106); Potassium 4.4 mmol/L (3.5-5.1); Sodium Level 134 mmol/L (136-145)
[2019-10-17] MEDS ORDERED: VANCOMYCIN/NS 1 gm 1 GM/250 ML BAG IV ONE (14:00)
[2019-10-17 14:08] LABS: Blood Morphology Comment NOT SEEN (NOT SEEN); Platelet Estimate ADEQ
[2019-10-17] MEDS ORDERED: FENTANYL CITR 100 MCG/2 ML ONE (15:00)
--- NOTE | 2019-10-17 16:57 | P.HP ---
Certification for Inpatient Patient admitted to: Inpatient With expected LOS: >2 Midnights Patient will require the following post-hospital care: None Practitioner: I am a practitioner with admitting privileges, knowledge of patient current condition, hospital course, and medical plan of care. Services: Services provided to patient in accordance with Admission requirements found in Title 42 Section 412.3 of the Code of Federal Regulations <Leandra Dodgeshua - Last Filed: 10/17/19 16:52> Patient History Date of Service: 10/17/19 Primary Care Provider: Dr. Valero Reason for admission: Cellulitis with diabetic ulcer. Failed outpatient therapy History of Present Illness: Patient came to emergency room today for further evaluation of a diabetic ulcer to right lower leg. Stated that she has been on clindamycin for the past few days with worsening of pain and erythema. Denies fevers. After being evaluated in the emergency department hospitalist team was consulted for admission for failed outpatient treatment. - Past Medical/Surgical History Has patient received pneumonia vaccine in the past: No Diabetic: Yes -: HTN -: DM Past Surgical History: Reviewed- Non-Contributory -: c section -: hysterectomy -: tonsilectomy -: Incision and drainage of thumb - Family History Family History: Reviewed- Non-Contributory - Family History Mother -: Diabetes, Cancer Notes: uterine cancer Father -: Cancer Notes: cancer of kidney, skin, and lung Brother -: Heart disease, Cancer Notes: Brother 1. "heart problems" Brother 2. cancer - nonhogkin lymphoma Sister -: Cancer Notes: skin cancer - Social History Smoking Status: Former smoker Smoking therapy provided: No Alcohol use: Yes CD- Drugs: No Place of Residence: Home <DarLuis Enrique - Last Filed: 10/17/19 16:52> Date of Service: 10/17/19 Home medications list reviewed: Yes - Past Medical/Surgical History Psychosocial/ Personal History: Patient is at home <Jean Melendrez - Last Filed: 10/17/19 17:45> Allergies Sulfa (Sulfonamide Antibiotics) Allergy (Severe, Verified 05/05/17 02:34) Hives sulfamethoxazole [From Bactrim] Allergy (Severe, Verified 05/05/17 02:34) Hives trimethoprim [From Bactrim] Allergy (Severe, Verified 05/05/17 02:34) Hives Home Medications: Amlodipine [Norvasc*] 10 mg PO DAILY 01/13/16 Lisinopril/Hydrochlorothiazide [Zestoretic 20-12.5 mg Tablet] 1 each PO DAILY Metformin HCl [Glucophage] 1,000 mg PO BID 01/13/16 Citalopram [Celexa*] 20 mg PO DAILY 05/05/17 Ciprofloxacin HCl [Cipro 500 MG Tablet] 500 mg PO BID #8 tab 05/08/17 Tramadol HCl [Ultram] 50 mg PO Q6HR PRN #20 tablet 05/08/17 metroNIDAZOLE [Metronidazole] 500 mg PO Q8HR #12 tablet 05/08/17 Review of Systems General: Unremarkable Eyes: Unremarkable ENT: Unremarkable Respiratory: Unremarkable Cardiovascular: Unremarkable Gastrointestinal: Unremarkable Musculoskeletal: Unremarkable Integumentary: As per HPI Neurological: Unremarkable Lymphatics: Unremarkable <Luis Enrique Dodge - Last Filed: 10/17/19 16:52> Physical Examination - Vital Signs Temperature: 98.4 F Blood Pressure: 154/81 Pulse: 84 Respirations: 18 Pulse Ox (%): 98 - Physical Exam General: Alert, In no apparent distress, Oriented x3, Cooperative HEENT: PERRLA, Mucous membr. moist/pink, EOMI Neck: Supple, 2+ carotid pulse no bruit, JVD not distended, No Thyromegaly Respiratory: Clear to auscultation bilaterally, Normal air movement Cardiovascular: No edema, Normal pulses, Regular rate/rhythm, Normal S1 S2, No gallops, No rubs, No murmurs Capillary refill: <2 Seconds Gastrointestinal: Normal bowel sounds, Soft and benign, Non-distended, No ascites, No tenderness, No masses Musculoskeletal: No clubbing, No swelling, No contractures, No tenderness, Erythema (Erythema surrounds the diabetic wound with mild induration suggestive of cellulitis.), Other Integumentary: Diabetic ulcer (Approximately 2.5 cm diabetic ulcer noted to the right lower posterior leg) Neurological: Normal gait, Normal speech, Normal strength at 5/5 x4 extr, Normal tone, Sensation intact, Cranial nerves 3-12 intact, Normal reflexes 2+, Normal affect Lymphatics: No axilla or inguinal lymphadenopathy - Studies Laboratory Data (last 24 hrs) 10/17/19 13:15: Sodium 134 L, Potassium 4.4, BUN 9, Creatinine 0.59, Glucose 143 H 10/17/19 13:15: WBC 4.5, Hgb 13.9, Hct 39.8, Plt Count 171 <Luis Enrique Dodge - Last Filed: 10/17/19 16:52> - Studies Laboratory Data (last 24 hrs) 10/17/19 13:15: Sodium 134 L, Potassium 4.4, BUN 9, Creatinine 0.59, Glucose 143 H 10/17/19 13:15: WBC 4.5, Hgb 13.9, Hct 39.8, Plt Count 171 <Jean Melendrez - Last Filed: 10/17/19 17:45> Assessment and Plan - Problems (Diagnosis) (1) Diabetic ulcer of ankle Current Visit: Yes Status: Acute (2) Cellulitis of leg without foot, right Current Visit: Yes Status: Acute (3) Diabetes Onset Date: 05/07/17 Current Visit: No Status: Chronic Qualifiers: Diabetes mellitus type: type 2 Diabetes mellitus fpc insulin use: without roasterman use Diabetes mellitus complication status: with skin complications Diabetes mellitus complication detail: with other skin ulcer Qualified Code(s): E11.622 - Type 2 diabetes mellitus with other skin ulcer (4) Hypertension Onset Date: 05/07/17 Current Visit: No Status: Chronic Qualifiers: Hypertension type: essential hypertension Qualified Code(s): I10 - Essential (primary) hypertension - Plan Patient will have repeat labs daily. Blood cultures and wound cultures was obtained and pending results. Patient will be prophylactically started on antibiotics to cover for Gram negative Gram positive bacteria. General surgery consulted for diabetic ulcer for possible debridement. Discharge Plan: Home Plan to discharge in: Greater than 2 days - Advance Directives Does patient have a Living Will: No Does patient have a Durable POA for Healthcare: No - Code Status/Comfort Care Code Status Assessed: Yes Code Status: Full Code Critical Care: No Time Spent Managing Pts Care (In Minutes): 45 <Luis Enrique Dodge - Last Filed: 10/17/19 16:52> - Plan Case reviewed and discussed with Christian Dodge NP. Continue antibiotics at this time. Surgery consulted for possible debridement. Await recommendation. <Jean Melendrez - Last Filed: 10/17/19 17:45>
[2019-10-17] MEDS ORDERED: ACETAMINOPHEN 500 MG TAB PO PRN (17:51)
[2019-10-17] MEDS ORDERED: ONDANSETRON 4 MG/2 ML VIAL IV PRN (17:51)
[2019-10-17] MEDS: INSULIN -REGULAR HUMAN 50 UNIT/0.5 ML ML SQ SCH ×2 (17:51→20:42)
[2019-10-17] MEDS ORDERED: D50W 25 GM/50 ML SYRINGE/VIAL IV PRN (17:51)
[2019-10-17] MEDS ORDERED: GLUCAGON 1 MG/VIAL IM PRN (17:51)
[2019-10-17 17:53] VITALS: BMI 34.7
[2019-10-17] MEDS: NA CHLORIDE 0.9% 1,000 ML IV SCH (18:13)
[2019-10-17] MEDS: ENOXAPARIN 40 MG/0.4 ML SQ SCH (18:14)
[2019-10-17] MEDS: MORPHINE 4 MG/ML SYR IV PRN (18:40)
[2019-10-17] MEDS ORDERED: INFLUENZA VACCINE (for 3y+) 0.5 ML DOSE IMVAC ONE (19:00)
[2019-10-17 19:56] LABS: Urine Appearance CLEAR; Urine Bilirubin NEGATIVE (NEG); Urine Blood NEGATIVE (NEG); Urine Color YELLOW; Urine Glucose 1+ (NEG); Urine Protein NEGATIVE (NEG); Urine Urobilinogen 0.2 mg/dL (0.2-1.0)
[2019-10-17 19:57] LABS: Urine Microscopic Reflex NO UMIC
[2019-10-18] MEDS ORDERED: VANCOMYCIN/NS 1 gm 1 GM/250 ML BAG IVPB SCH (05:00)
[2019-10-18] MEDS: Levofloxacin500mg IV 500 MG/100 ML BAG IV SCH (05:23)
[2019-10-18 05:37] LABS: Absolute Lymphocytes (CBC) 1.3 K/uL (0.7-4.9); Basophils % 0.8 % (0-1.3); Hematocrit 36.3 % (36.0-45.0); Lymphocytes % 32.5 % (15.3-44.8); MPV 9.2 fL (7.6-11.3); RBC Red Blood Cell Count 3.86 M/uL (3.86-4.86)
[2019-10-18 06:13] LABS: BUN Blood Urea Nitrogen 6 mg/dL (7-18); Bicarbonate 26 mmol/L (21-32); Glucose Level 159 mg/dL (74-106); Potassium 3.8 mmol/L (3.5-5.1); Sodium Level 132 mmol/L (136-145)
[2019-10-18] MEDS: NA CHLORIDE 0.9% 1,000 ML IV SCH (06:16)
[2019-10-18] MEDS: MORPHINE 4 MG/ML SYR IV PRN ×3 (06:16→10:07)
[2019-10-18] MEDS: INSULIN -REGULAR HUMAN 50 UNIT/0.5 ML ML SQ SCH ×4 (07:30→21:00)
[2019-10-18] MEDS ORDERED: VANCOMYCIN 1.5 GM in NA CHLORIDE 0.9% 500 ML IVPB SCH (08:00)
[2019-10-18] MEDS ORDERED: clonazePAM 0.5 MG TAB PO PRN (11:35)
[2019-10-18] MEDS ORDERED: TRAMADOL HCL 50 MG TAB PO PRN (11:37)
--- NOTE | 2019-10-18 11:45 | P.PN ---
Subjective Date of Service: 10/18/19 Primary Care Provider: Dr. Valero Chief Complaint: Cellulitis with diabetic ulcer. Failed outpatient therapy Subjective: Improving (Erythema to the right lower extremity improved) Physical Examination - Vital Signs Temperature: 98.0 F Blood Pressure: 164/76 Pulse: 74 Respirations: 18 Pulse Ox (%): 95 - Physical Exam General: Alert, In no apparent distress, Oriented x3, Cooperative HEENT: Atraumatic Neck: Supple Respiratory: Clear to auscultation bilaterally, Normal air movement Cardiovascular: Normal pulses, Regular rate/rhythm Gastrointestinal: Normal bowel sounds, Soft and benign, Non-distended Musculoskeletal: Other (Erythema to the right lower extremity improved. Ulcer noted. No exudate noted at this time.) Neurological: Normal speech, Normal strength at 5/5 x4 extr, Normal tone, Normal affect - Studies Laboratory Data (last 24 hrs) 10/17/19 13:15: Sodium 134 L, Potassium 4.4, BUN 9, Creatinine 0.59, Glucose 143 H 10/17/19 13:15: WBC 4.5, Hgb 13.9, Hct 39.8, Plt Count 171 Medications List Reviewed: Yes Assessment & Plan Discharge Plan: Home Plan to discharge in: 48 Hours Physician Review Additional Text: Impression: Right lower extremity cellulitis with diabetic ulcer with wound culture showing Gram negative rods Diabetes mellitus type 2 non-insulin dependent Hypertension Diabetic neuropathy Depression with anxiety Plan: Right lower extremity cellulitis with diabetic ulcer with wound culture showing Gram negative rods: Wound culture shows Gram negative rods. Await sensitivity. Will discontinue vancomycin. Continue IV Levaquin. Wound care consulted to further evaluate. Surgery consulted to further assess. Patient will likely not need surgical intervention at this time. Will check arterial doppler to evaluate for peripheral vascular disease. Venous Doppler negative for DVT. Continue to monitor closely. Will have physical therapy assess ambulation. Will provide medication for pain. Anticipate discharge in the next 1-2 days pending clinical improvement and culture result. Diabetes mellitus type 2 non-insulin dependent: Prior A1c 7.6. Restart metformin. Continue Accu-Cheks and insulin sliding scale in place. Hypertension: Start home medication of Norvasc, metoprolol, and lisinopril. Diabetic neuropathy: Restart Neurontin. Depression with anxiety: Restart Cymbalta. Will provide medication for anxiety. Time Spent Managing Pts Care (In Minutes): 55
[2019-10-18] MEDS: METOPROLOL TAR 50 MG TAB PO SCH (12:27)
[2019-10-18] MEDS: METFORMIN HCL 500 MG TAB PO SCH ×2 (12:28→16:48)
[2019-10-18] MEDS: AMLODIPINE 10 MG TAB PO SCH (12:28)
[2019-10-18 14:05] VITALS: O2SAT 98
[2019-10-18] MEDS: HYDROCODONE/APAP 7.5/325 MG TAB PO PRN ×2 (15:20→21:40)
[2019-10-18] MEDS: ENOXAPARIN 40 MG/0.4 ML SQ SCH (16:48)
--- NOTE | 2019-10-18 17:07 | P.CNS ---
Date of Consult: 10/18/19 PC: I was asked to see this female regards to lesion on the accountant cost portion of her right calf. HPC: Patient believes she may sustained an insect bite a few days ago. Was having pain in discomfort in that area. Pain intensified before she easier primary care physician and she came to emergency room for evaluation treatment. SOC: Allergic to doxycycline, sulfa, Flagyl and Bactrim SYS REVIEW: No cough, wheeze, shortness of breath. No chest pain or palpitations. Denies any urinary complaints. Does not complain any pain regularly in her feet. She states her ankles usually do not swell. O/E . Awake alert HEENT: Within normal limb Chest: NAD LOCO: Has a 2 cm lesion on the posterior portion of her right calf. There are skin hart demonstrating where the a cellulitis had extended 2. The wound is obviously improved. DATA: No DVT in IMPRESSION: This patient has area on her posterior calf that had increased cellulitis. It appears to be consistent with some necrotic tissue secondary to an MRI site type infection. It appears to be responding well to antibiotics. PLAN: I would leave BS are in place. It will most likely follow up by itself. Elevation of her legs, continuing antibiotics, avoiding santal (AKA were severe pain when it was on her wound prior to her admission) for now. Will follow with you.
[2019-10-18] MEDS ORDERED: HOME MED 1 EA UNK (Melatonin [Melatonin] 10 MG) PO SCH (21:00)
[2019-10-18] MEDS ORDERED: MELATONIN 5 MG TABLET PO SCH (21:00)
[2019-10-18] MEDS ORDERED: HOME MED 1 EA UNK (Metformin Hcl [Metformin Hcl] 1,000 MG) PO SCH (21:00)
[2019-10-19] MEDS: Levofloxacin500mg IV 500 MG/100 ML BAG IV SCH (05:13)
[2019-10-19] MEDS: HYDROCODONE/APAP 7.5/325 MG TAB PO PRN (05:19)
[2019-10-19 06:17] LABS: BUN Blood Urea Nitrogen 6 mg/dL (7-18); Bicarbonate 30 mmol/L (21-32); Glucose Level 161 mg/dL (74-106); Potassium 3.7 mmol/L (3.5-5.1); Sodium Level 131 mmol/L (136-145)
[2019-10-19 06:22] LABS: Magnesium 1.3 mg/dL (1.8-2.4)
[2019-10-19] MEDS ORDERED: Magnesium Sulfate 2gm IVPB 2 G/50 ML BAG IV ONE (06:24)
[2019-10-19 07:24] LABS: Absolute Lymphocytes (CBC) 1.2 K/uL (0.7-4.9); Basophils % 0.9 % (0-1.3); Hematocrit 36.2 % (36.0-45.0); MPV 9.2 fL (7.6-11.3); RBC Red Blood Cell Count 3.84 M/uL (3.86-4.86)
[2019-10-19] MEDS: INSULIN -REGULAR HUMAN 50 UNIT/0.5 ML ML SQ SCH (07:30)
--- NOTE | 2019-10-19 08:01 | RAD REPORT ---
EXAM DESCRIPTION: US - Lower Extremity Arterial Bilat - 10/18/2019 9:31 pm CLINICAL HISTORY: Bilateral lower extremity pain COMPARISON: None. TECHNIQUE: Waveforms were obtained along the length of each lower extremity. Visual inspection of th e lower extremity arterial tree performed. FINDINGS: No occlusion or focal flow restrictive lesion identifiable. Atherosclerotic changes are id entifiable in the lower extremity arterial tree. Right common femoral artery shows biphasic waveform pattern. Right femoral artery shows biphasic to m inimally triphasic. Popliteal artery also shows biphasic to minimally triphasic waveform. Posterior t ibial and dorsalis pedis arteries on the right are monophasic to biphasic. The left common femoral, superficial femoral and popliteal arteries show triphasic waveform patterns. Dorsalis pedis and posterior tibial arteries show monophasic waveform patterns. IMPRESSION: Bilateral lower extremity peripheral arterial disease present, more so on the right. No occlusion or focal flow restricting lesions seen.
--- NOTE | 2019-10-19 08:32 | P.DS ---
Admission Date: 10/17/19 Discharge Date: 10/19/19 Primary Care Provider: Dr. Valero Disposition: ROUTINE DISCHARGE Discharge Condition: GOOD Reason for Admission: Cellulitis with diabetic ulcer. Failed outpatient therapy Consultations: Surgery-Dr. Aden Procedures: Venous Doppler: FINDINGS: Right common femoral, superficial femoral, popliteal and right posterior tibial veins are compressible and demonstrate augmentation. Doppler demonstrates good flow. Small echogenic material is present within the periphery of the right popliteal and right posterior veins probably the sequela of prior chronic thrombus. IMPRESSION: No evidence of acute deep venous thrombosis involving the right lower extremity. Arterial Doppler: FINDINGS: No occlusion or focal flow restrictive lesion identifiable. Atherosclerotic changes are identifiable in the lower extremity arterial tree. Right common femoral artery shows biphasic waveform pattern. Right femoral artery shows biphasic to minimally triphasic. Popliteal artery also shows biphasic to minimally triphasic waveform. Posterior tibial and dorsalis pedis arteries on the right are monophasic to biphasic. The left common femoral, superficial femoral and popliteal arteries show triphasic waveform patterns. Dorsalis pedis and posterior tibial arteries show monophasic waveform patterns. IMPRESSION: Bilateral lower extremity peripheral arterial disease present, more so on the right. No occlusion or focal flow restricting lesions seen. Medical Problem List: Right lower extremity cellulitis with diabetic ulcer with wound culture positive for Pseudomonas Bilateral lower extremity peripheral arterial disease Diabetes mellitus type 2 non-insulin dependent Hypertension Diabetic neuropathy Depression with anxiety Hypomagnesia Obesity, BMI 34 Brief History of Present Illness: 69-year-old female presented to emergency room with failed outpatient therapy for right lower extremity cellulitis. Patient had been given clindamycin recently. Ulcer had developed. No improvement noted. Patient was assessed in the emergency room. Cellulitis was identified. Patient was admitted for further treatment. Hospital Course: Patient presented with right lower extremity cellulitis and diabetic ulcer. Patient had failed outpatient therapy. Patient previously on clindamycin. Patient was given IV antibiotic therapy. Patient seen and evaluated by surgery. No surgical intervention was recommended at this time. Condition improved. Cultures were positive for Pseudomonas. Blood cultures negative. Patient has responded well to antibiotic therapy. At discharge patient will continue with Levaquin 500 mg daily for 7 days. Patient to elevate leg when sitting or lying. Patient will clean the area with normal saline and apply Bactroban ointment daily. Recommend follow up [facility] within 1 week to monitor her care and resolution of cellulitis/ulcer. Venous Doppler showed no DVT. Arterial Doppler showed bilateral lower extremity peripheral vascular disease. At discharge she will continue with aspirin 81 mg daily. For her peripheral vascular disease it is recommended that she follow up with cardiology as an outpatient to further address. Patient may require further evaluation and intervention. Patient with diabetes mellitus type 2 [id number]. Recent A1c 7.6. Has remained stable. At discharge she will continue with metformin 1000 mg 1 pill twice daily. Recommend to maintain sugars less 140 fasting and less than 200 after meals. Further adjustment can be done by her PCP. Patient with hypertension. Blood pressures were elevated. Lisinopril was adjusted for better blood pressure control. At discharge she will continue with her medications of Norvasc 10 mg daily, metoprolol 100 mg daily, and lisinopril 20 mg 1 pill twice daily. Patient previously on Lasix. This has been discontinued. Recommend to maintain blood pressures was 150/80. Further adjustment can be done by her PCP. Patient with likely with history of diabetic neuropathy. At discharge she may continue with Neurontin 100 mg 3 times a day as needed for pain. Patient will be provided a limited supply of tramadol 50 mg 1 pill 3 times a day as needed for pain. Patient with depression with anxiety. Patient will continue with Cymbalta 30 mg daily, Klonopin 1 mg 3 times a day as needed for anxiety and melatonin 10 mg daily. Patient had low magnesium. This was replaced. At discharge she may continue with magnesium oxide 400 mg daily. Vital Signs/Physical Exam: Temp Pulse Resp BP Pulse Ox 97.7 F 76 18 183/74 H 97 10/19/19 04:00 10/19/19 04:00 10/19/19 06:19 10/19/19 04:00 10/19/19 06:19 General: Alert, In no apparent distress, Oriented x3, Cooperative HEENT: Atraumatic Neck: Supple Respiratory: Clear to auscultation bilaterally, Normal air movement Cardiovascular: Normal pulses, Regular rate/rhythm Gastrointestinal: Normal bowel sounds, Soft and benign, Non-distended, No masses , No rebound, No guarding Integumentary: Other (Erythema to the right lower extremity significantly improved. Ulcer noted to the right lower extremity below the knee near the ankle region medially.) Neurological: Normal speech, Normal strength at 5/5 x4 extr, Normal tone, Normal affect Laboratory Data at Discharge: WBC 3.3 K/uL (4.3-10.9) L D 10/19/19 05:44 Hgb 13.0 g/dL (12.0-15.0) 10/19/19 05:44 Hct 36.2 % (36.0-45.0) 10/19/19 05:44 Plt Count 138 K/uL (152-406) L 10/19/19 05:44 Sodium 131 mmol/L (136-145) L 10/19/19 05:44 Potassium 3.7 mmol/L (3.5-5.1) 10/19/19 05:44 BUN 6 mg/dL (7-18) L 10/19/19 05:44 Creatinine 0.55 mg/dL (0.55-1.3) 10/19/19 05:44 Glucose 161 mg/dL (74-106) H 10/19/19 05:44 Magnesium 1.3 mg/dL (1.8-2.4) L* 10/19/19 05:44 Home Medications: Amlodipine [Norvasc*] 10 mg PO DAILY 10/17/19 Clonidine HCl [Catapres] 0.1 mg PO PRN PRN 10/17/19 Duloxetine HCl [Cymbalta] 30 mg PO DAILY 10/17/19 Melatonin 10 mg PO BEDTIME 10/17/19 Metformin HCl 1,000 mg PO BID 10/17/19 Metoprolol Tartrate 100 mg PO DAILY 10/17/19 clonazePAM [Klonopin*] 1 mg PO TIDP PRN 10/17/19 Aspirin [Aspirin EC 81 MG] 81 mg PO DAILY #90 tablet. 10/19/19 Gabapentin [Neurontin] 100 mg PO TID PRN #30 cap 10/19/19 Levofloxacin [Levaquin] 500 mg PO DAILY #7 tablet 10/19/19 Lisinopril [Prinivil*] 20 mg PO BID #60 tab 10/19/19 Magnesium Oxide [Mag 0X Tab] 400 mg PO DAILY #30 tab 10/19/19 Mupirocin Oint [Bactroban 2% Ointment] 8 appl TOP DAILY #1 tube 10/19/19 traMADol HCL [Ultram*] 50 mg PO TID PRN #15 tab 10/19/19 New Medications: Aspirin [Aspirin EC 81 MG] 81 mg PO DAILY #90 tablet. Gabapentin [Neurontin] 100 mg PO TID PRN #30 cap PRN Reason: Pain Scale 2-4 (Mild) Levofloxacin [Levaquin] 500 mg PO DAILY #7 tablet Lisinopril [Prinivil*] 20 mg PO BID #60 tab Magnesium Oxide [Mag 0X Tab] 400 mg PO DAILY #30 tab Mupirocin Oint [Bactroban 2% Ointment] 8 appl TOP DAILY #1 tube traMADol HCL [Ultram*] 50 mg PO TID PRN #15 tab PRN Reason: Pain Scale 2-4 (Mild) Patient Discharge Instructions: 1. Recommend follow up with her PCP in 1 week to follow up this hospitalization. 2. Patient presented with right lower extremity cellulitis and diabetic ulcer. Patient had failed outpatient therapy. Patient previously on clindamycin. Patient was given IV antibiotic therapy. Patient seen and evaluated by surgery. No surgical intervention was recommended at this time. Condition improved. Cultures were positive for Pseudomonas. Blood cultures negative. Patient has responded well to antibiotic therapy. At discharge patient will continue with Levaquin 500 mg daily for 7 days. Patient to elevate leg when sitting or lying. Patient will clean the area with normal saline and apply Bactroban ointment daily. Recommend follow up with [facility] within 1 week to monitor her care and resolution of cellulitis/ulcer. 3. Venous Doppler showed no DVT. Arterial Doppler showed bilateral lower extremity peripheral vascular disease. At discharge she will continue with aspirin 81 mg daily. For her peripheral vascular disease it is recommended that she follow up with cardiology as an outpatient to further address. Patient may require further evaluation and intervention. 4. Patient with diabetes mellitus type 2 non- insulin-dependent. Recent A1c 7.6. Has remained stable. At discharge she will continue with metformin 1000 mg 1 pill twice daily. Recommend to maintain sugars less 140 fasting and less than 200 after meals. Further adjustment can be done by her PCP. 5. Patient with hypertension. Blood pressures were elevated. Lisinopril was adjusted for better blood pressure control. At discharge she will continue with her medications of Norvasc 10 mg daily, metoprolol 100 mg daily, and lisinopril 20 mg 1 pill twice daily. Patient previously on Lasix. This has been discontinued. Recommend to maintain blood pressures was 150/80. Further adjustment can be done by her PCP. 6. Patient with likely with history of diabetic neuropathy. At discharge she may continue with Neurontin 100 mg 3 times a day as needed for pain. Patient will be provided a limited supply of tramadol 50 mg 1 pill 3 times a day as needed for pain. 7. Patient with depression with anxiety. Patient will continue with Cymbalta 30 mg daily, Klonopin 1 mg 3 times a day as needed for anxiety and melatonin 10 mg daily. 8. Patient had low magnesium. This was replaced. At discharge she may continue with magnesium oxide 400 mg daily. Diet: ADA Activity: Fall precautions Time spent managing pt's care (in minutes): 55
[2019-10-19] MEDS: METFORMIN HCL 500 MG TAB PO SCH (08:37)
[2019-10-19] MEDS: METOPROLOL TAR 50 MG TAB PO SCH (08:38)
[2019-10-19] MEDS: AMLODIPINE 10 MG TAB PO SCH (08:38)
[2019-10-19 08:50] VITALS: TEMP 97.9
[2019-10-19] MEDS ORDERED: lisinopriL 20 MG TAB PO SCH ×2 (09:00)
[2019-10-19] MEDS ORDERED: HOME MED 1 EA UNK (Metoprolol Tartrate [Metoprolol Tartrate] 100 MG) PO SCH (09:00)
[2019-10-19] MEDS ORDERED: DULOXETINE 30 MG CAP PO SCH (09:00)
[2019-10-19 10:25] VITALS: BP 164/72
[2019-10-19 12:36] LABS: Platelet Estimate DECR
[2019-10-19 12:37] LABS: Blood Morphology Comment NOT SEEN (NOT SEEN)
== END 2019-10-19 11:04 | disposition home or self-care (01) | DRG 603 ==
LOC: ER 10:47 → ERHOLD 15:30 → 2ND 17:18
PROVIDERS: ADMIT Family Medicine; ATTEND Family Medicine
DX: L03.115 Cellulitis of right lower limb (principal); B96.5 Pseudomonas (aeruginosa) (mallei) (pseudomallei) as the cause of diseases classified elsewhere; I73.9 Peripheral vascular disease, unspecified; E11.9 Type 2 diabetes mellitus without complications; E11.622 Type 2 diabetes mellitus with other skin ulcer; I10 Essential (primary) hypertension; E11.40 Type 2 diabetes mellitus with diabetic neuropathy, unspecified; F41.8 Other specified anxiety disorders; E83.42 Hypomagnesemia; E66.9 Obesity, unspecified; Z68.34 Body mass index [BMI] 34.0-34.9, adult; Z23 Encounter for immunization
CPT/HCPCS: 36415; 80048; 81003; 82947; 83735; 85025; 87040; 87070; 87077; 87186; 87205; 90471; 93925; 93971; 96365; 96366; 97161; 97530; 99285; J1650; J3010; J3370; J3475; J7030; J7040; Q2035

== ENCOUNTER 2019-11-27 13:07 | Inpatient (IN) | payer OTHER ==
--- NOTE | 2019-11-27 14:31 | EDPHYS ---
Physician Documentation [facility] Name: Bridgett Gotti Age: 69 yrs Sex: Female : 1950 Arrival Date: 11/27/2019 Time: 13:08 Bed 6 Private MD: ED Physician Tono Patrick HPI: 11/27 15:49 This 69 yrs old Female presents to ER via Wheelchair with complaints of Skin kdr Sore(s), Leg Pain. 15:49 The patient presents with pain, that is chronic, tenderness, Open wound that the kdr patient states is getting worse and now has a fouls smelling discharge. The complaints affect the right ankle. Context: The problem was sustained at an unknown site, resulted from an unknown cause, the patient can fully bear weight, the patient is able to ambulate. Onset: The symptoms/episode began/occurred gradually, last several months. Modifying factors: The symptoms are alleviated by nothing. the symptoms are aggravated by Touching the area. Associated signs and symptoms: Pertinent positives: swelling. Treatment prior to arrival includes: no previous treatment. Severity of symptoms: At their worst the symptoms were mild. The patient has experienced a previous episode, This is an ongoing problem which has never been resolved and has been getting worse. The patient has not recently seen a physician. Historical: - Allergies: 13:25 Bactrim; sv 13:25 Doxycycline; sv 13:25 Sulfa (Sulfonamide Antibiotics); sv - Home Meds: 15:08 amlodipine 10 mg tab 1 tab once daily [Active]; clonidine HCl 0.1 mg Oral tab as needed bp [Active]; Cymbalta 30 mg Oral cpDR 1 cap once daily [Active]; Klonopin 1 mg Oral tab 1 tab 3 times per day for PRN for anxiety [Active]; Lasix 20 mg Oral tab 1 tab once daily [Active]; lisinopril 20 mg Oral tab 1 tab once daily [Active]; melatonin 10 mg Oral tab [Active]; metformin 1,000 mg Oral tab 1 tab 2 times per day [Active]; metoprolol tartrate 100 mg Oral tab 1 tab once daily [Active]; nitrofurantoin macrocrystal 100 mg Oral cap 1 cap 2 times daily [Active]; Norvasc 10 mg Oral tab 1 tab once daily [Active]; Trintellix 10 mg Oral tab 1 tab once daily [Active]; - PMHx: 13:25 Diabetes - NIDDM; Hypertension; Lupus; Rheumatoid Arthritis; sv - PSHx: 13:25 Toe Surgery; Hysterectomy; Tonsillectomy; sv - Immunization history:: Adult Immunizations up to date. - Social history:: Smoking status: unknown. - Ebola Screening: : No symptoms or risks identified at this time. ROS: 15:49 Constitutional: Negative for fever, chills, and weight loss, Eyes: Negative for injury, kdr pain, redness, and discharge, ENT: Negative for injury, pain, and discharge, Neck: Negative for injury, pain, and swelling, Cardiovascular: Negative for chest pain, palpitations, and edema, Respiratory: Negative for shortness of breath, cough, wheezing, and pleuritic chest pain, Abdomen/GI: Negative for abdominal pain, nausea, vomiting, diarrhea, and constipation, Back: Negative for injury and pain, : Negative for injury, bleeding, discharge, and swelling, MS/Extremity: Negative for injury and deformity, Neuro: Negative for headache, weakness, numbness, tingling, and seizure activity. Psych: Negative for depression, anxiety, suicide ideation, homicidal ideation, and hallucinations, Allergy/Immunology: Negative for hives, rash, and allergies, Endocrine: Negative for neck swelling, polydipsia, polyuria, polyphagia, and marked weight changes, Hematologic/Lymphatic: Negative for swollen nodes, abnormal bleeding, and unusual bruising. 15:49 Skin: Positive for abscess, cellulitis, ulceration, of the right ankle. Exam: 15:49 Constitutional: This is a well developed, well nourished patient who is awake, alert, kdr and in no acute distress. 15:49 Skin: cellulitis, induration, 5 cm x 6 cm wound to medial right distal calf with foul smelling discharge. Vital Signs: 13:25 BP 174 / 102; Pulse 111; Resp 20; Temp 98.9; Pulse Ox 100% ; Weight 82.55 kg; Height 5 sv ft. 1 in. (154.94 cm); Pain 9/10; 14:42 BP 164 / 82; Pulse 98; Resp 16; Pulse Ox 99% ; bp 15:29 BP 186 / 76; Pulse 94; Resp 16; Pulse Ox 100% ; bp 13:25 Body Mass Index 34.39 (82.55 kg, 154.94 cm) sv MDM: 14:29 Patient medically screened. kdr 15:49 Data reviewed: vital signs, nurses notes, lab test result(s). Counseling: I had a kdr detailed discussion with the patient and/or guardian regarding: the historical points, exam findings, and any diagnostic results supporting the discharge/admit diagnosis, lab results, the need for further work-up and treatment in the hospital. 11/27 14:06 Order name: Basic Metabolic Panel; Complete Time: 15:15 kdr 11/27 14:06 Order name: Blood Culture Adult (2) kdr 11/27 14:06 Order name: CBC with Diff; Complete Time: 15:15 kdr 11/27 14:06 Order name: Ckmb; Complete Time: 15:15 kdr 11/27 14:06 Order name: CPK; Complete Time: 15:15 kdr 11/27 14:06 Order name: Lactate; Complete Time: 15:15 kdr 11/27 14:06 Order name: LFT's; Complete Time: 15:15 kdr 11/27 14:06 Order name: Lipase; Complete Time: 15:15 kdr 11/27 14:06 Order name: Procalcitonin kdr 11/27 14:06 Order name: Protime (+inr); Complete Time: 15:15 kdr 11/27 14:06 Order name: Ptt, Activated; Complete Time: 15:15 kdr 11/27 14:06 Order name: Troponin (emerg Dept Use Only); Complete Time: 15:15 kdr 11/27 14:06 Order name: Urine Microscopic Only kdr 11/27 14:46 Order name: Glucose, Ancillary Testing; Complete Time: 15:15 EDMS 11/27 14:06 Order name: Chest Single View XRAY; Complete Time: 15:15 kdr 11/27 14:06 Order name: Accucheck; Complete Time: 14:42 kdr 11/27 14:06 Order name: Cardiac monitoring; Complete Time: 14:11 kdr 11/27 14:06 Order name: EKG - Nurse/Tech; Complete Time: 14:11 kdr 11/27 14:06 Order name: IV Saline Lock - Large Bore; Complete Time: 14:42 kdr 11/27 14:06 Order name: Labs collected and sent; Complete Time: 14:42 kdr 11/27 14:06 Order name: O2 Per Protocol; Complete Time: 14:10 [facility] 11/27 14:06 Order name: O2 Sat Monitoring; Complete Time: 14:10 [facility] 11/27 14:25 Order name: CONS Physician Consult EDMS Administered Medications: 14:42 Not Given (Physician Discretion): NS 0.9% (30 ml/kg) 30 ml/kg IV at bolus once; Sepsis bp Protocol 15:03 Drug: Cefepime 1 grams Route: IVPB; Rate: 200 ml/hr; Infused Over: 30 mins; Site: right bp forearm; 15:27 Follow up: IV Status: Completed infusion; IV Intake: 100ml bp Disposition: 11/27/19 14:29 Hospitalization ordered by Jean Melendrez for Inpatient Admission. Preliminary diagnosis are Cellulitis of right lower limb, Open wound of ankle, Osteomyelitis. - Bed requested for Telemetry/MedSurg (Inpatient). - Status is Inpatient Admission. bp - Condition is Stable. - Problem is new. - Symptoms are unchanged. UTI on Admission? No Signatures: Dispatcher [employer] EDCO Sandy Frias RN RN sv Woody, Diana, RN RN Tono Patrick MD MD kdr Roszak, Josh, PA PA [id number] Aristeo Arreola RN RN bp Corrections: (The following items were deleted from the chart) 14:29 14:29 Hospitalization Ordered by Jean Melendrez DO for Inpatient Admission. Preliminary kdr diagnosis is Cellulitis of right lower limb; Open wound of ankle. Bed requested for Telemetry/MedSurg (Inpatient). Status is Inpatient Admission. Condition is Stable. Problem is new. Symptoms are unchanged. UTI on Admission? No. kdr 14:50 14:29 11/27/2019 14:29 Hospitalization Ordered by Jean Melendrez DO for Inpatient dw Admission. Preliminary diagnosis is Cellulitis of right lower limb; Open wound of ankle; Osteomyelitis. Bed requested for Telemetry/MedSurg (Inpatient). Status is Inpatient Admission. Condition is Stable. Problem is new. Symptoms are unchanged. UTI on Admission? No. kdr 15:33 14:50 11/27/2019 14:29 Hospitalization Ordered by Jean Melendrez DO for Inpatient bp Admission. Preliminary diagnosis is Cellulitis of right lower limb; Open wound of ankle; Osteomyelitis. Bed requested for Telemetry/MedSurg (Inpatient). Status is Inpatient Admission. Condition is Stable. Problem is new. Symptoms are unchanged. UTI on Admission? No. dw
--- NOTE | 2019-11-27 14:31 | ER ---
Nurse's Notes [facility] Name: Bridgett Gotti Age: 69 yrs Sex: Female : 1950 Arrival Date: 11/27/2019 Time: 13:08 Bed 6 Private MD: Diagnosis: Cellulitis of right lower limb;Open wound of ankle;Osteomyelitis Presentation: 11/27 13:22 Presenting complaint: Patient states: RLE DM sore that has been since Aug 2019, was sv admitted and d/c'd, surgery scheduled this month with Dr Aden but reports the wound is looking worse. Transition of care: patient was not received from another setting of care. Onset of symptoms was August 2019. Care prior to arrival: None. 13:22 Method Of Arrival: Wheelchair sv 13:22 Acuity: LASHONDA 2 sv 15:03 Risk Assessment: Do you want to hurt yourself or someone else? Patient reports no bp desire to harm self or others. Initial Sepsis Screen: Does the patient meet any 2 criteria? No. Patient's initial sepsis screen is negative. Does the patient have a suspected source of infection? No. Patient's initial sepsis screen is negative. Triage Assessment: 13:30 General: Appears in no apparent distress. comfortable, Behavior is cooperative, bp appropriate for age, anxious. Pain: Complains of pain in right leg. EENT: No deficits noted. Neuro: No deficits noted. Cardiovascular: No deficits noted. Respiratory: No deficits noted. GI: No signs and/or symptoms were reported involving the gastrointestinal system. : No signs and/or symptoms were reported regarding the genitourinary system. Derm: Wound noted right leg. Musculoskeletal: No deficits noted. Historical: - Allergies: 13:25 Bactrim; sv 13:25 Doxycycline; sv 13:25 Sulfa (Sulfonamide Antibiotics); sv - Home Meds: 15:08 amlodipine 10 mg tab 1 tab once daily [Active]; clonidine HCl 0.1 mg Oral tab as needed bp [Active]; Cymbalta 30 mg Oral cpDR 1 cap once daily [Active]; Klonopin 1 mg Oral tab 1 tab 3 times per day for PRN for anxiety [Active]; Lasix 20 mg Oral tab 1 tab once daily [Active]; lisinopril 20 mg Oral tab 1 tab once daily [Active]; melatonin 10 mg Oral tab [Active]; metformin 1,000 mg Oral tab 1 tab 2 times per day [Active]; metoprolol tartrate 100 mg Oral tab 1 tab once daily [Active]; nitrofurantoin macrocrystal 100 mg Oral cap 1 cap 2 times daily [Active]; Norvasc 10 mg Oral tab 1 tab once daily [Active]; Trintellix 10 mg Oral tab 1 tab once daily [Active]; - PMHx: 13:25 Diabetes - NIDDM; Hypertension; Lupus; Rheumatoid Arthritis; sv - PSHx: 13:25 Toe Surgery; Hysterectomy; Tonsillectomy; sv - Immunization history:: Adult Immunizations up to date. - Social history:: Smoking status: unknown. - Ebola Screening: : No symptoms or risks identified at this time. Screenin:08 Abuse screen: Denies threats or abuse. Denies injuries from another. Nutritional bp screening: No deficits noted. Tuberculosis screening: No symptoms or risk factors identified. Fall Risk None identified. Assessment: 13:30 General: SEE TRIAGE NOTE. bp Vital Signs: 13:25 BP 174 / 102; Pulse 111; Resp 20; Temp 98.9; Pulse Ox 100% ; Weight 82.55 kg; Height 5 sv ft. 1 in. (154.94 cm); Pain 9/10; 14:42 BP 164 / 82; Pulse 98; Resp 16; Pulse Ox 99% ; bp 15:29 BP 186 / 76; Pulse 94; Resp 16; Pulse Ox 100% ; bp 13:25 Body Mass Index 34.39 (82.55 kg, 154.94 cm) sv ED Course: 13:08 Patient arrived in ED. as 13:13 Tono Patrick MD is Attending Physician. kdr 13:16 Aristeo Arreola, ILAN is Primary Nurse. bp 13:23 Triage completed. sv 13:25 Arm band placed on. sv 14:08 Patient has correct armband on for positive identification. Bed in low position. Call bp light in reach. Side rails up X2. Adult w/ patient. 14:20 EKG done, by ED staff, reviewed by Tono Patrick MD. ms 14:28 Jean Melendrez DO is Hospitalizing Provider. kdr 14:32 Chest Single View XRAY In Process Unspecified. EDMS 14:35 Inserted saline lock: 20 gauge in right forearm, using aseptic technique. Blood bp collected. 15:03 No provider procedures requiring assistance completed. Patient admitted, IV remains in bp place. Administered Medications: 14:42 Not Given (Physician Discretion): NS 0.9% (30 ml/kg) 30 ml/kg IV at bolus once; Sepsis bp Protocol 15:03 Drug: Cefepime 1 grams Route: IVPB; Rate: 200 ml/hr; Infused Over: 30 mins; Site: right bp forearm; 15:27 Follow up: IV Status: Completed infusion; IV Intake: 100ml bp Intake: 15:27 IV: 100ml; Total: 100ml. bp Outcome: 14:29 Decision to Hospitalize by Provider. kdr 15:28 Admitted to Med/surg accompanied by tech, via wheelchair, room 225, with chart, Report bp called to LOVE RN 15:28 Condition: stable 15:28 Instructed on the need for admit. 15:33 Patient left the ED. bp Signatures: Dispatcher [employer] Sandy Weir, RN RN Tono Bravo MD MD kdr Martinez, Amelia as Villarreal, Maria ms Peltier, Brian, RN RN bp
--- NOTE | 2019-11-27 14:48 | RAD REPORT ---
EXAM DESCRIPTION: RAD - Chest Single View - 11/27/2019 2:31 pm CLINICAL HISTORY: Preop examination, right leg skin wound COMPARISON: April 2017 TECHNIQUE: AP portable chest image was obtained 1420 hours . FINDINGS: No focal lung parenchymal process. No failure or volume overload. Heart size is normal. Me diastinum is accentuated by rotation and portable technique. Mild tortuosity of the vasculature could explain the slightly widened mediastinum. No measurable pleural effusion and no pneumothorax. No acu te bony abnormality seen. No acute aortic findings suspected. IMPRESSION: No acute cardiopulmonary process.
[2019-11-27 14:53] LABS: Absolute Lymphocytes (CBC) 1.5 K/uL (0.7-4.9); Basophils % 0.6 % (0-1.3); Hematocrit 35.5 % (36.0-45.0); Lymphocytes % 22.3 % (15.3-44.8); MPV 8.3 fL (7.6-11.3); RBC Red Blood Cell Count 3.84 M/uL (3.86-4.86)
[2019-11-27 14:58] LABS: Protime INR 1.04
[2019-11-27] MEDS ORDERED: VANCOMYCIN/NS 1 gm 1 GM/250 ML BAG IV ONE ×2 (15:00→17:00)
[2019-11-27] MEDS ORDERED: CEFEPIME 1 GM/100 ML BAG IV ONE (15:03)
[2019-11-27 15:11] LABS: ALT/SGPT 30 U/L (12-78); AST/SGOT 36 U/L (15-37); Albumin 2.9 g/dL (3.4-5.0); Alkaline Phosphatase 137 U/L (45-117); BUN Blood Urea Nitrogen 8 mg/dL (7-18); Bicarbonate 24 mmol/L (21-32); Bilirubin Direct 0.1 mg/dL (0-0.2); Bilirubin Total 0.5 mg/dL (0.2-1.0); CKMB Creatine Kinase MB 2.1 ng/mL (0.3-3.6); Creatine Phosphokinase 46 U/L (26-192); Glucose Level 181 mg/dL (74-106); Lipase 77 U/L (73-393); Potassium 3.9 mmol/L (3.5-5.1); Sodium Level 136 mmol/L (136-145); Troponin (Emerg Dept Use Only) < 0.02 ng/mL (0.0-0.045)
--- NOTE | 2019-11-27 15:38 | P.HP ---
Certification for Inpatient Patient admitted to: Inpatient With expected LOS: >2 Midnights Patient will require the following post-hospital care: None Practitioner: I am a practitioner with admitting privileges, knowledge of patient current condition, hospital course, and medical plan of care. Services: Services provided to patient in accordance with Admission requirements found in Title 42 Section 412.3 of the Code of Federal Regulations <Luis Enrique Dodge - Last Filed: 11/27/19 15:32> Patient History Date of Service: 11/27/19 Primary Care Provider: Herbert Reason for admission: Cellulitis right lower limb, Osteomyelitis, open wound right ankle History of Present Illness: This is a 69 year old female that came to the ER today after worsening ear pain and increased redness tenderness swelling and enlargement of her wound to right medial ankle. Patient stated that she was treated about a month ago or more for small infection to the right medial ankle. Was on antibiotics at that time. Was told that she may need a skin graft but had not followed up as of yet due to the holidays. Over the past couple weeks wound has enlarged substantially. Patient now unable to bear the pain. Patient without septic finding at this time. The patient was worked up in the emergency room. No systemic white cell count, no lactate, no procalcitonin. Blood cultures were obtained and antibiotics were given. Dr. Townsend has been consulted as patient has seen him in the past. Home medications list reviewed: Yes - Past Medical/Surgical History Diabetic: Yes -: HTN -: DM -: lupus -: rheumatoid arthritis -: c section -: hysterectomy -: tonsilectomy -: Incision and drainage of thumb Psychosocial/ Personal History: Patient is at home - Family History Mother -: Diabetes, Cancer Notes: uterine cancer Father -: Cancer Notes: cancer of kidney, skin, and lung Brother -: Heart disease, Cancer Notes: Brother 1. "heart problems" Brother 2. cancer - nonhogkin lymphoma Sister -: Cancer Notes: skin cancer - Social History Smoking Status: Former smoker Smoking therapy provided: No Alcohol use: Yes CD- Drugs: No Caffeine use: Yes Place of Residence: Home <Luis Enrique Dodge - Last Filed: 11/27/19 15:32> Date of Service: 11/27/19 - Past Medical/Surgical History -: Diabetes mellitus type 2 [id number] -: Lupus -: Rheumatoid arthritis -: CAD -: Depression with anxiety -: Former smoker -: -: Hysterectomy -: Tonsillectomy - Social History Smoking Status: Former smoker <Jean Melendrez - Last Filed: 11/27/19 17:11> Allergies doxycycline Allergy (Severe, Verified 10/17/19 18:18) Nausea/Vomiting Sulfa (Sulfonamide Antibiotics) Allergy (Severe, Verified 05/05/17 02:34) Hives sulfamethoxazole [From Bactrim] Allergy (Severe, Verified 05/05/17 02:34) Hives trimethoprim [From Bactrim] Allergy (Severe, Verified 05/05/17 02:34) Hives Home Medications: Amlodipine [Norvasc*] 10 mg PO DAILY 10/17/19 Clonidine HCl [Catapres] 0.1 mg PO PRN PRN 10/17/19 Duloxetine HCl [Cymbalta] 30 mg PO DAILY 10/17/19 Melatonin 10 mg PO BEDTIME 10/17/19 Metformin HCl 1,000 mg PO BID 10/17/19 Metoprolol Tartrate 100 mg PO DAILY 10/17/19 clonazePAM [Klonopin*] 1 mg PO TIDP PRN 10/17/19 Aspirin [Aspirin EC 81 MG] 81 mg PO DAILY #90 tablet. 10/19/19 Gabapentin [Neurontin] 100 mg PO TID PRN #30 cap 10/19/19 Clopidogrel Bisulfate [Plavix*] 1 tab PO DAILY 11/27/19 Furosemide [Lasix] 20 mg PO DAILY 11/27/19 lisinopriL [Prinivil*] 20 mg PO DAILY 11/27/19 Review of Systems General: Unremarkable Eyes: Unremarkable ENT: Unremarkable Respiratory: Unremarkable Cardiovascular: Unremarkable Gastrointestinal: Unremarkable Genitourinary: Unremarkable Musculoskeletal: Leg Pain Integumentary: As per HPI Neurological: Unremarkable Lymphatics: Unremarkable <Luis Enrique Dodge - Last Filed: 11/27/19 15:32> Physical Examination - Vital Signs Temperature: 98.9 F Blood Pressure: 174/102 Pulse: 110 Respirations: 20 Pulse Ox (%): 100 - Physical Exam General: Alert, In no apparent distress, Oriented x3 HEENT: Normocephalic, PERRLA, Mucous membr. moist/pink, EOMI Neck: Supple, 2+ carotid pulse no bruit, JVD not distended, No Thyromegaly Respiratory: Clear to auscultation bilaterally, Normal air movement Cardiovascular: No edema, Normal pulses, Regular rate/rhythm, Normal S1 S2, No gallops, No rubs, No murmurs Capillary refill: <2 Seconds Gastrointestinal: Normal bowel sounds, Soft and benign, Non-distended, No ascites, No tenderness, No masses, No rebound, No guarding Musculoskeletal: No clubbing, No swelling, No contractures, Erythema (right medial ankle about 5 cm above the medial malleolus ), Tenderness Integumentary: Other (Patient has an approximately 7.5 x 7.5 cm ulcerated, erythrematic, foul smelling wound with black eschar noted and purulent dishcarge ) Neurological: Normal gait, Normal speech, Normal strength at 5/5 x4 extr, Normal tone, Sensation intact, Cranial nerves 3-12 intact, Normal reflexes 2+, Normal affect Lymphatics: No axilla or inguinal lymphadenopathy <Luis Enrique Dodge - Last Filed: 11/27/19 15:32> - Physical Exam Integumentary: Other <Jean Melendrez - Last Filed: 11/27/19 17:11> Assessment and Plan - Problems (Diagnosis) (1) Osteomyelitis of ankle Current Visit: Yes Status: Acute Qualifiers: Osteomyelitis type: unspecified type Laterality: right Qualified Code(s) : M86.9 - Osteomyelitis, unspecified (2) Cellulitis of leg without foot, right Current Visit: No Status: Acute (3) Diabetic ulcer of ankle Current Visit: No Status: Acute (4) Diabetes Onset Date: 05/07/17 Current Visit: No Status: Chronic Qualifiers: Diabetes mellitus type: type 2 Diabetes mellitus fdc insulin use: without fdc use Diabetes mellitus complication status: with skin complications Diabetes mellitus complication detail: with other skin ulcer Qualified Code(s): E11.622 - Type 2 diabetes mellitus with other skin ulcer (5) Hypertension Onset Date: 05/07/17 Current Visit: No Status: Chronic Qualifiers: Hypertension type: essential hypertension Qualified Code(s): I10 - Essential (primary) hypertension - Plan Patient will be admitted to the hospital 1 of continued antibiotics for the next few days. Dr. Townsend has been consulted and will see patient for wound debridement. MRI has been ordered to rule out oral and osteomyelitis due to the chronicity of the wound and worsening of state. Otherwise patient will continue on blood pressure meds and will be monitored throughout course of treatment. Labs will be checked daily. Patient be placed on diabetic sliding scale for narrow therapeutic control. As of now we will wait to see what Dr. Townsend and the MRI says Discharge Plan: Home Plan to discharge in: Greater than 2 days - Advance Directives Does patient have a Living Will: Yes Does patient have a Durable POA for Healthcare: No - Code Status/Comfort Care Code Status Assessed: Yes Code Status: Full Code Critical Care: No Time Spent Managing Pts Care (In Minutes): 45 <Luis Enrique Dodge - Last Filed: 11/27/19 15:32> - Plan Impression: 7.5 x 7.5 cm ulcerated ulcer to the right lower extremity below the knee medially with cellulitis Diabetes mellitus type 2 [id number] Hypertension Diabetic neuropathy Depression with anxiety CAD Plan: 7.5 x 7.5 cm ulcerated ulcer to the right lower extremity below the knee medially with cellulitis: Patient be admitted for further evaluation and treatment. Will continue with IV antibiotic therapy. Pharmacy to monitor and adjust. Will order MRI to evaluate for osteomyelitis. Surgery consulted to further evaluate. Patient will likely require debridement. Will keep the patient NPO after midnight. Diabetes mellitus type 2 [id number]: Continue Accu-Cheks. Will provide sliding scale. Hypertension: Restart home medication of lisinopril, metoprolol, and Norvasc. Will continue to adjust medication Diabetic neuropathy: Will provide medication for pain Depression with anxiety: Will provide medication for anxiety CAD: Continue with medication including DVT prophylaxis. - Code Status/Comfort Care Code Status Assessed: Yes (Patient is full code) <Jean Melendrez - Last Filed: 11/27/19 17:11>
[2019-11-27] MEDS ORDERED: ONDANSETRON 4 MG/2 ML VIAL IV PRN (15:51)
[2019-11-27] MEDS ORDERED: D50W 25 GM/50 ML SYRINGE/VIAL IV PRN (15:51)
[2019-11-27] MEDS ORDERED: GLUCAGON 1 MG/VIAL IM PRN (15:51)
[2019-11-27 16:05] VITALS: BMI 34.4
[2019-11-27] MEDS: NA CHLORIDE 0.9% 1,000 ML IV SCH (16:13)
[2019-11-27] MEDS: ENOXAPARIN 40 MG/0.4 ML SQ SCH (16:13)
[2019-11-27] MEDS: INSULIN -REGULAR HUMAN 50 UNIT/0.5 ML ML SQ SCH ×2 (16:28→21:00)
[2019-11-27] MEDS ORDERED: clonazePAM 1 MG TAB PO PRN (17:04)
[2019-11-27] MEDS ORDERED: HOME MED 1 EA UNK (Metoprolol Tartrate [Metoprolol Tartrate] 100 MG) PO SCH (17:04)
[2019-11-27] MEDS ORDERED: GABAPENTIN 100 MG CAP PO PRN (17:04)
[2019-11-27] MEDS: METOPROLOL TAR 50 MG TAB PO SCH (18:07)
[2019-11-27] MEDS: MORPHINE 4 MG/ML SYR IV PRN ×2 (18:08→21:56)
[2019-11-27 19:46] LABS: Urine Appearance CLEAR; Urine Bilirubin NEGATIVE (NEG); Urine Blood NEGATIVE (NEG); Urine Color YELLOW; Urine Glucose NEGATIVE (NEG); Urine Protein NEGATIVE (NEG); Urine Specific Gravity <=1.005 (1.005-1.030); Urine Urobilinogen 0.2 mg/dL (0.2-1.0)
[2019-11-27 19:48] LABS: Urine Microscopic Reflex NO UMIC
[2019-11-27] MEDS ORDERED: HOME MED 1 EA UNK (Melatonin [Melatonin] 10 MG) PO SCH (21:00)
[2019-11-27] MEDS: MELATONIN 5 MG TABLET PO SCH (22:02)
[2019-11-28] MEDS: MORPHINE 4 MG/ML SYR IV PRN (03:23)
[2019-11-28] MEDS ORDERED: CEFEPIME 1 GM/VIAL IV SCH (05:00)
[2019-11-28] MEDS ORDERED: VANCOMYCIN/NS 1 gm 1 GM/250 ML BAG IVPB SCH (05:00)
[2019-11-28 06:02] LABS: Absolute Lymphocytes (CBC) 1.4 K/uL (0.7-4.9); Basophils % 0.9 % (0-1.3); Hematocrit 33.9 % (36.0-45.0); MPV 8.4 fL (7.6-11.3); RBC Red Blood Cell Count 3.64 M/uL (3.86-4.86)
[2019-11-28 06:16] LABS: BUN Blood Urea Nitrogen 6 mg/dL (7-18); Bicarbonate 25 mmol/L (21-32); Glucose Level 169 mg/dL (74-106); Potassium 3.8 mmol/L (3.5-5.1); Sodium Level 135 mmol/L (136-145)
[2019-11-28 06:18] LABS: Magnesium 1.4 mg/dL (1.8-2.4)
[2019-11-28] MEDS: NA CHLORIDE 0.9% 1,000 ML IV SCH ×3 (07:00→16:48)
[2019-11-28] MEDS ORDERED: LIDOCAINE 1% MPF 5 ML VIAL ONE (07:18)
[2019-11-28] MEDS ORDERED: FENTANYL CITR 100 MCG/2 ML ONE (07:18)
[2019-11-28] MEDS ORDERED: propofoL 200 MG/20 ML VIAL IV ONE (07:18)
--- NOTE | 2019-11-28 07:25 | P.CNS ---
Date of Consult: 11/28/19 PC: This 69-year-old female presented to the emergency room with increasing pain a in a chronic wound of the right leg for diagnosis and treatment. HPC: Patient is had this wound for the last few weeks. Had been treated as an outpatient. It was very slow to heal and was going to require a split- thickness skin graft. However the wound suddenly deteriorated NG came to the emergency room. PMH: Rheumatoid arthritis, coronary artery disease, diabetes SOC: Allergic to doxycycline, sulfa, trimethoprim SYS REVIEW: No cough, wheeze, shortness of breath. Has difficulty ambulating due to the pain in her leg but otherwise healthy female. No change in bowel habit. O/E awake alert obviously uncomfortable HEENT: Within normal limits Chest: Chest movement equal bilaterally ABD: Soft LOCO: Large open wound measuring approximately 3 inches x 4 inches on the medial aspect of her right lower leg DATA: MRI negative for osteo IMPRESSION: Open wound of the right lower leg PLAN: I will take to the operating room for surgical debridement of this wound. We may apply wound VAC to help expedite the formation of a good granulating base. She will require skin graft. We will better be able to determine her plan was to see her in the operating room and is necrotic tissue has been debrided. The risks of this procedure have been discussed, the ongoing plan described. She understands and wants us to proceed.
[2019-11-28] MEDS: INSULIN -REGULAR HUMAN 50 UNIT/0.5 ML ML SQ SCH ×4 (07:30→20:33)
[2019-11-28] MEDS ORDERED: BUPIVACAINE 0.5% PF 10 ML VIAL ONE (07:46)
[2019-11-28] MEDS ORDERED: ONDANSETRON 4 MG/2 ML VIAL ONE (08:19)
[2019-11-28] MEDS ORDERED: KETOROLAC 30 MG/ML INJ ONE (08:19)
--- NOTE | 2019-11-28 08:31 | P.OP ---
Preoperative diagnosis: Open wound medial aspect of right lower leg Postoperative diagnosis: The same Primary procedure: Excision and sharp debridement of open wound right lower leg Secondary procedure: Application of wound VAC Anesthesia: General Estimated blood loss: Less than 10 cc Specimen: Necrotic debris (not sent) Operative Technique: The patient brought the operating room placed supine on the table or after the induction of adequate general anesthesia the area of the right lower leg was prepped with a Betadine solution draped in usual aseptic manner. Attention was turned towards this 5 inch x 3 inch oval wound on the right medial aspect of the lower leg. There was a sharp measure between necrotic tissue and viable tissue. This was incised using electro cautery. The necrotic debris on the ulcer side was sharply debrided with a cutting surgical blade. Hemostasis was achieved with electro cautery. The necrotic material having been debrided all the way down to just below the fascia showed clean viable muscle and fat at the base of the wound. A wound VAC was now placed in the wound. The skin was protected with the barrier. The sponge was placed into the wound and then covered with the wound VAC suction device. It was connected to a temp resection to ensure adequate seal. At the end of the procedure the patient was stable when sent to the recovery room. We will bring her back in a few days starting to remove the wound VAC and either continue with wound VAC, or if possible split-thickness skin graft. Complications: None Transferred to: Recovery Room Condition: Good
[2019-11-28] MEDS ORDERED: MEPERIDINE HCL 25 MG/0.5 ML ONE ×2 (08:38→08:45)
[2019-11-28] MEDS ORDERED: ONDANSETRON 4 MG/2 ML VIAL IV PRN (08:47)
[2019-11-28] MEDS: HYDROMORPHONE HCL 1 MG/ML INJ ONE ×4 (08:50→09:09)
[2019-11-28] MEDS ORDERED: Magnesium Sulfate 2gm IVPB 2 G/50 ML BAG IV ONE (09:00)
[2019-11-28] MEDS ORDERED: PROMETHAZINE INJ 25 MG/ML AMP ONE (09:01)
[2019-11-28] MEDS: METOPROLOL TAR 50 MG TAB PO SCH (09:56)
[2019-11-28] MEDS: CEFEPIME/SWI 1gm 10 ML IVP SCH (09:56)
[2019-11-28] MEDS: lisinopriL 20 MG TAB PO SCH (09:56)
[2019-11-28] MEDS: CLOPIDOGREL 75 MG TABLET PO SCH (09:57)
[2019-11-28] MEDS: ASPIRIN EC 81 MG TAB PO SCH (09:57)
[2019-11-28] MEDS: DULOXETINE 30 MG CAP PO SCH (09:57)
[2019-11-28] MEDS: HYDROCODONE/APAP 7.5/325 MG TAB PO PRN ×3 (09:57→20:32)
[2019-11-28] MEDS: AMLODIPINE 10 MG TAB PO SCH (09:57)
--- NOTE | 2019-11-28 11:38 | RAD REPORT ---
EXAM DESCRIPTION: MRI - Lower Extremity Wo - 11/27/2019 9:11 pm CLINICAL HISTORY: Open wound on the right lower leg. COMPARISON: None. TECHNIQUE: Multiplanar, multisequence MR imaging of the right tibia-fibula was performed without the administration of intravenous gadolinium. FINDINGS: There is an external marker overlying the anteromedial lower leg. There is diffuse subcutaneous edema in this region without a focal fluid collection. No evidence of acute osteomyelitis or fracture. No abnormal intramuscular signal is seen. The visualized tendons are intact. IMPRESSION: 1. No evidence of osteomyelitis or abscess. 2. Mild subcutaneous edema of the right lower leg. Electronically signed by: Solo Lambert MD 11/27/2019 10:42 PM OIL FIELD EQUIPMENT MECHANIC SUPERVISOR Due to temporary technical issues with the PACS/Fluency reporting system, reports are being signed by the in house radiologist as a courtesy to ensure prompt reporting. The interpreting radiologist is f ully responsible for the content of the report.
[2019-11-28] MEDS: VANCOMYCIN 1.5 GM in NA CHLORIDE 0.9% 500 ML IVPB SCH (12:06)
--- NOTE | 2019-11-28 13:50 | EKG ---
Test Date: 2019-11-27 Test Time: 14:19:21 Senior Research Analyst: MEASUREMENT RESULTS: Intervals: Rate: 97 [place]: 190 QRSD: 126 QT: 394 QTc: 500 [place]: P: -1 WA: 190 QRS: 125 T: -13 INTERPRETIVE STATEMENTS: Normal sinus rhythm Right bundle branch block Left posterior fascicular block Bifascicular block T wave abnormality, consider inferior ischemia Abnormal ECG Compared to ECG 05/05/2017 06:39:27 Right bundle-branch block now present Left posterior fascicular block now present Bifascicular block now present T-wave abnormality now present Possible ischemia now present Atrial premature complex(es) no longer present Left ventricular hypertrophy no longer present Early repolarization no longer present Electronically Signed On 11-28-19 13:47:16 CANCER PROGRAM CONSULTANT by Bruce Wallace
[2019-11-28] MEDS: ENOXAPARIN 40 MG/0.4 ML SQ SCH (16:43)
--- NOTE | 2019-11-28 18:40 | P.PN ---
Subjective Date of Service: 11/28/19 Primary Care Provider: Herbert Chief Complaint: Cellulitis right lower limb, Osteomyelitis, open wound right ankle Subjective: Doing well Physical Examination - Vital Signs Temperature: 97.5 F Blood Pressure: 156/68 Pulse: 76 Respirations: 16 Pulse Ox (%): 96 - Physical Exam General: Alert, In no apparent distress, Oriented x3 HEENT: Atraumatic Neck: Supple Respiratory: Clear to auscultation bilaterally Cardiovascular: Normal pulses, Regular rate/rhythm Gastrointestinal: Normal bowel sounds, Soft and benign, Non-distended Musculoskeletal: Other (Wound VAC in place to the right lower extremity) Assessment & Plan Discharge Plan: Home Plan to discharge in: Greater than 2 days Physician Review Additional Text: Impression: 7.5 x 7.5 cm ulcerated ulcer to the right lower extremity below the knee medially with cellulitis Diabetes mellitus type 2 uuv-nypbjxp-jvlimvyfn Hypertension Diabetic neuropathy Depression with anxiety CAD Plan: 7.5 x 7.5 cm ulcerated ulcer to the right lower extremity below the knee medially with cellulitis: Will continue with IV antibiotic therapy. Patient had surgery today. Wound VAC in place. MRI pending. Will discuss further with surgery. There may be planned for skin graft on Sunday. Will monitor closely. Diabetes mellitus type 2 uxp-nnpzyib-xjhakeajp: Continue Accu-Cheks. Will provide sliding scale. Hypertension: Restart home medication of lisinopril, metoprolol, and Norvasc. Will continue to adjust medication Diabetic neuropathy: Will provide medication for pain Depression with anxiety: Will provide medication for anxiety CAD: Continue with medication including DVT prophylaxis. Time Spent Managing Pts Care (In Minutes): 55
[2019-11-28] MEDS: MELATONIN 5 MG TABLET PO SCH (20:32)
[2019-11-29] MEDS: HYDROCODONE/APAP 7.5/325 MG TAB PO PRN ×4 (03:41→23:41)
[2019-11-29] MEDS: MORPHINE 4 MG/ML SYR IV PRN ×2 (04:39→15:23)
[2019-11-29] MEDS: VANCOMYCIN 1.5 GM in NA CHLORIDE 0.9% 500 ML IVPB SCH ×2 (04:39→23:35)
[2019-11-29 06:01] LABS: Absolute Lymphocytes (CBC) 1.1 K/uL (0.7-4.9); Basophils % 0.4 % (0-1.3); Hematocrit 32.6 % (36.0-45.0); Lymphocytes % 22.7 % (15.3-44.8); MPV 8.2 fL (7.6-11.3); RBC Red Blood Cell Count 3.46 M/uL (3.86-4.86)
[2019-11-29 06:16] LABS: BUN Blood Urea Nitrogen 6 mg/dL (7-18); Bicarbonate 26 mmol/L (21-32); Glucose Level 159 mg/dL (74-106); Magnesium 1.6 mg/dL (1.8-2.4); Potassium 3.8 mmol/L (3.5-5.1); Sodium Level 138 mmol/L (136-145)
[2019-11-29] MEDS: INSULIN -REGULAR HUMAN 50 UNIT/0.5 ML ML SQ SCH ×4 (07:30→21:31)
[2019-11-29] MEDS: NA CHLORIDE 0.9% 1,000 ML IV SCH ×2 (07:51→21:31)
[2019-11-29] MEDS ORDERED: MAGNESIUM SULFATE 1 gm IVPB 1 GM/100 ML BAG IV ONE (09:00)
[2019-11-29] MEDS: lisinopriL 20 MG TAB PO SCH (09:46)
[2019-11-29] MEDS: ASPIRIN EC 81 MG TAB PO SCH (09:46)
[2019-11-29] MEDS: AMLODIPINE 10 MG TAB PO SCH (09:47)
[2019-11-29] MEDS: METOPROLOL TAR 50 MG TAB PO SCH (09:47)
[2019-11-29] MEDS: CLOPIDOGREL 75 MG TABLET PO SCH (09:47)
[2019-11-29] MEDS: DULOXETINE 30 MG CAP PO SCH (09:48)
[2019-11-29] MEDS: CEFEPIME/SWI 1gm 10 ML IVP SCH (09:49)
--- NOTE | 2019-11-29 14:22 | P.PN ---
Subjective Date of Service: 11/29/19 Primary Care Provider: Herbert Chief Complaint: Cellulitis right lower limb, Osteomyelitis, open wound right ankle Subjective: Doing well Physical Examination - Vital Signs Temperature: 98.7 F Blood Pressure: 180/75 Pulse: 79 Respirations: 17 Pulse Ox (%): 79 - Physical Exam General: Alert, In no apparent distress, Oriented x3, Cooperative HEENT: Atraumatic Neck: Supple Respiratory: Clear to auscultation bilaterally, Normal air movement Cardiovascular: Normal pulses, Regular rate/rhythm Gastrointestinal: Normal bowel sounds, Soft and benign, Non-distended Integumentary: Other (Wound VAC in place.) - Studies Medications List Reviewed: Yes Assessment & Plan Discharge Plan: Home Plan to discharge in: 48 Hours Physician Review Additional Text: Impression: 7.5 x 7.5 cm ulcerated ulcer to the right lower extremity below the knee medially with cellulitis Diabetes mellitus type 2 guw-paeiiub-yforvpyku Hypertension Diabetic neuropathy Depression with anxiety CAD Plan: 7.5 x 7.5 cm ulcerated ulcer to the right lower extremity below the knee medially with cellulitis: Will continue with IV antibiotic therapy. Patient has done well post surgery. Wound VAC in place. MRI pending. Will discuss further with surgery. There may be plan for skin graft on Sunday. Will monitor closely. Diabetes mellitus type 2 rpf-mlfiqvx-ozzroqexa: Continue Accu-Cheks. Will provide sliding scale. Hypertension: Continue home medication of lisinopril, metoprolol, and Norvasc. Will continue to adjust medication for better control Diabetic neuropathy: Will provide medication for pain Depression with anxiety: Will provide medication for anxiety CAD: Continue with medication including DVT prophylaxis. Time Spent Managing Pts Care (In Minutes): 55
[2019-11-29] MEDS ORDERED: TRAMADOL HCL 50 MG TAB PO PRN (14:23)
[2019-11-29] MEDS: ENOXAPARIN 40 MG/0.4 ML SQ SCH (17:25)
[2019-11-29] MEDS: MELATONIN 5 MG TABLET PO SCH (21:31)
[2019-11-30] MEDS: HYDROCODONE/APAP 7.5/325 MG TAB PO PRN ×3 (05:52→21:06)
[2019-11-30 06:17] LABS: Absolute Lymphocytes (CBC) 1.2 K/uL (0.7-4.9); Basophils % 0.5 % (0-1.3); Lymphocytes % 28.5 % (15.3-44.8); MPV 8.2 fL (7.6-11.3); RBC Red Blood Cell Count 3.38 M/uL (3.86-4.86)
[2019-11-30 06:19] LABS: BUN Blood Urea Nitrogen 5 mg/dL (7-18); Bicarbonate 28 mmol/L (21-32); Glucose Level 136 mg/dL (74-106); Magnesium 1.6 mg/dL (1.8-2.4); Potassium 3.6 mmol/L (3.5-5.1); Sodium Level 139 mmol/L (136-145)
[2019-11-30] MEDS ORDERED: MAGNESIUM SULFATE 1 gm IVPB 1 GM/100 ML BAG IV ONE (06:46)
[2019-11-30] MEDS: INSULIN -REGULAR HUMAN 50 UNIT/0.5 ML ML SQ SCH ×4 (07:30→21:05)
[2019-11-30 07:40] LABS: Urine White Blood Cell Casts OK
[2019-11-30 07:41] LABS: Blood Morphology Comment NOT SEEN (NOT SEEN); Platelet Estimate ADEQ
[2019-11-30] MEDS: Levofloxacin500mg IV 500 MG/100 ML BAG IV SCH (08:31)
[2019-11-30] MEDS: MORPHINE 4 MG/ML SYR IV PRN ×2 (08:31→15:28)
[2019-11-30] MEDS: lisinopriL 20 MG TAB PO SCH (08:33)
[2019-11-30] MEDS: DULOXETINE 30 MG CAP PO SCH (08:33)
[2019-11-30] MEDS: ASPIRIN EC 81 MG TAB PO SCH (08:34)
[2019-11-30] MEDS: AMLODIPINE 10 MG TAB PO SCH (08:34)
[2019-11-30] MEDS: METOPROLOL TAR 50 MG TAB PO SCH (08:34)
[2019-11-30] MEDS: CLOPIDOGREL 75 MG TABLET PO SCH (08:34)
[2019-11-30] MEDS: NA CHLORIDE 0.9% 1,000 ML IV SCH ×2 (10:31→18:29)
--- NOTE | 2019-11-30 11:29 | P.PN ---
Subjective Date of Service: 11/30/19 Primary Care Provider: Dr. Valero Chief Complaint: Cellulitis right lower limb, Osteomyelitis, open wound right ankle Subjective: Improving, Doing well Physical Examination - Vital Signs Temperature: 97.1 F Blood Pressure: 160/70 Pulse: 72 Respirations: 18 Pulse Ox (%): 96 - Physical Exam General: Alert, In no apparent distress, Oriented x3 HEENT: Atraumatic Neck: Supple Respiratory: Clear to auscultation bilaterally, Normal air movement Cardiovascular: Normal pulses, Regular rate/rhythm Gastrointestinal: Normal bowel sounds, Soft and benign, Non-distended Musculoskeletal: Other (Wound VAC in place) - Studies Medications List Reviewed: Yes Assessment & Plan Discharge Plan: Home Plan to discharge in: 48 Hours Physician Review Additional Text: Impression: 7.5 x 7.5 cm ulcerated ulcer to the right lower extremity below the knee medially with cellulitis, wound culture positive for Klebsiella and Pseudomonas Diabetes mellitus type 2 llv-dpehftn-qhfaocnwe Hypertension Diabetic neuropathy Depression with anxiety CAD Plan: 7.5 x 7.5 cm ulcerated ulcer to the right lower extremity below the knee medially with cellulitis, wound culture positive for Klebsiella and Pseudomonas : Will continue with IV antibiotic therapy. Antibiotics have been adjusted. Continue wound VAC. Continue with recommendations by surgery and infectious disease. Patient likely to have surgery for skin graft tomorrow. Will discuss with surgery. Possible discharge as early as tomorrow or in the next 1-2 days. I will turn the service over to the hospitalist team tomorrow. I will go over the plan of care with him. Diabetes mellitus type 2 iad-riwjnxg-wfnskvrgt: Continue Accu-Cheks. Will provide sliding scale. Hypertension: Continue home medication of lisinopril, metoprolol, and Norvasc. Will continue to adjust medication for better control Diabetic neuropathy: Will provide medication for pain Depression with anxiety: Will provide medication for anxiety CAD: Continue with medication including DVT prophylaxis. Time Spent Managing Pts Care (In Minutes): 55
[2019-11-30] MEDS: ENOXAPARIN 40 MG/0.4 ML SQ SCH (16:41)
[2019-11-30] MEDS: MELATONIN 5 MG TABLET PO SCH (21:05)
[2019-12-01] MEDS: HYDROCODONE/APAP 7.5/325 MG TAB PO PRN ×2 (03:56→23:33)
[2019-12-01 05:57] LABS: Absolute Lymphocytes (CBC) 1.1 K/uL (0.7-4.9); Basophils % 0.5 % (0-1.3); Hematocrit 32.2 % (36.0-45.0); Lymphocytes % 23.6 % (15.3-44.8); MPV 8.4 fL (7.6-11.3); RBC Red Blood Cell Count 3.49 M/uL (3.86-4.86)
[2019-12-01 06:12] LABS: BUN Blood Urea Nitrogen 3 mg/dL (7-18); Bicarbonate 27 mmol/L (21-32); Glucose Level 153 mg/dL (74-106); Potassium 3.4 mmol/L (3.5-5.1); Sodium Level 137 mmol/L (136-145)
[2019-12-01] MEDS: Levofloxacin500mg IV 500 MG/100 ML BAG IV SCH (06:12)
[2019-12-01] MEDS: NA CHLORIDE 0.9% 1,000 ML IV SCH ×2 (06:12→20:51)
[2019-12-01 06:13] LABS: Magnesium 1.3 mg/dL (1.8-2.4)
[2019-12-01] MEDS: METOPROLOL TAR 50 MG TAB PO SCH (06:22)
[2019-12-01] MEDS ORDERED: Magnesium Sulfate 2gm IVPB 2 G/50 ML BAG IV ONE (06:27)
--- NOTE | 2019-12-01 08:12 | CON ---
History Of Present Illness: Patient is a 69-year-old female, I was consulted for right leg infection and cellulitis with ulceration, status post debridement done by surgical team. Patient has signific ant past medical history of diabetes mellitus and diabetic neuropathy. Her wound started in August after she got a small wound to the right leg. She was waiting for the holidays to be over before she can go back to her doctor. In the meantime, her wound got necrotic and had to go through debridemen t by surgical team here at the hospital. Past Medical History: Diabetes mellitus, diabetic neuropathy, hypertension, lupus, rheumatoid arthri tis, , hysterectomy, tonsillectomy, incision and drainage of thumb wound and left foot wound . Past Surgical History: As above. Social History: Nonsmoker, nondrinker. Family History: Noncontributory. Medications: Vancomycin and cefepime. See MAR for other medications. Allergies: INCLUDE DOXYCYCLINE AND SULFA. Review of Systems: 10-point review was performed. Physical Examination: General: This is a 69-year-old female, lying in bed, not in any acute cardiopulmonary distress. Vital Signs: Temperature 97.7, pulse 72, respirations 17, blood pressure 132/62. HEENT: Unremarkable. Neck: Supple. Lungs: Clear to auscultation. Heart: S1, S2. Regular. Abdomen: Soft, nontender. Bowel sounds present. Extremities: Right leg ulceration with wound VAC in place. Laboratory Data: Shows WBC 6.8, hemoglobin 11.8, platelets are 233. Chemistry shows sodium 135, pot assium 3.8, chloride 103, bicarb 25, BUN 6, creatinine 0.62, glucose is 184. Procalcitonin is 0.05. Micro data shows blood cultures are pending. Wound cultures are pending. Assessment And Plan: A 69-year-old female with longstanding history of diabetes mellitus and diabeti c neuropathy, coming in after with small trauma to the right leg causing her to have ulceration, whic h has not healed and become a nonhealing ulcer more than 3 months, had to go through debridement for necrotic area and wound VAC placement. Patient is currently being treated with vancomycin and cefepi me. We will monitor the infection and continue antibiotic for at least 10 more days. Can be switche d to oral on discharge and follow up [facility]. We will follow the patient closely. Thank you Dr. Melendrez for consult. JOLLY/OLIMPIA Voice ID: [id number] Report ID: [id number]
[2019-12-01] MEDS: DULOXETINE 30 MG CAP PO SCH (08:50)
[2019-12-01] MEDS: lisinopriL 20 MG TAB PO SCH (08:50)
[2019-12-01] MEDS: CLOPIDOGREL 75 MG TABLET PO SCH (08:50)
[2019-12-01] MEDS: ASPIRIN EC 81 MG TAB PO SCH (08:50)
[2019-12-01] MEDS: INSULIN -REGULAR HUMAN 50 UNIT/0.5 ML ML SQ SCH ×4 (08:52→20:43)
[2019-12-01] MEDS: AMLODIPINE 10 MG TAB PO SCH (08:52)
[2019-12-01] MEDS: MORPHINE 4 MG/ML SYR IV PRN ×3 (09:25→20:50)
[2019-12-01] MEDS ORDERED: POTASSIUM CL SA 10 MEQ TAB PO ONE (10:02)
[2019-12-01] MEDS: HYDRALAZINE HCL 25 MG TABLET PO SCH ×2 (13:15→20:50)
--- NOTE | 2019-12-01 13:21 | P.PN ---
Subjective Date of Service: 12/01/19 Primary Care Provider: Dr. Valero Chief Complaint: Cellulitis right lower limb, Osteomyelitis, open wound right ankle Subjective: No new changes, No C/O voiced (Patient is complaining of right lower extremity pain with movement.), Tolerating diet, Ambulating, Improving, New changes, C/O voiced, NPO, Working w/ PT, Worsening, Doing well, Demented, Other Physical Examination - Vital Signs Temperature: 97.6 F Blood Pressure: 166/76 Pulse: 64 Respirations: 18 Pulse Ox (%): 96 - Physical Exam General: Alert (In mild physical distress. Alert and awake.) HEENT: Atraumatic (Head atraumatic. Normocephalic. EOM intact) Respiratory: Clear to auscultation bilaterally (Lungs are clear to auscultation bilaterally without wheezing or crackles) Cardiovascular: No edema (Normal S1, S2. Regular rate and rhythm.) Gastrointestinal: Normal bowel sounds (Abdomen soft, nontender, nondistended. Bowel sounds are present.) Musculoskeletal: No clubbing (Right ankle with a wound VAC attached. Inflamed.) Neurological: Normal gait (Grossly intact.) - Studies Medications List Reviewed: Yes Assessment & Plan Physician Review Additional Text: Impression: 7.5 x 7.5 cm ulcerated ulcer to the right lower extremity below the knee medially with cellulitis, wound culture positive for Klebsiella and Pseudomonas Diabetes mellitus type 2 yvw-klmblbl-swiobkfkp Hypertension Diabetic neuropathy Depression with anxiety CAD Plan: 7.5 x 7.5 cm ulcerated ulcer to the right lower extremity below the knee medially with cellulitis, wound culture positive for Klebsiella and Pseudomonas : Status post Excision and sharp debridement of open wound right lower leg Currently with a wound VAC in place Patient doing well on levofloxacin IV monotherapy given above cultures Attending Plastic surgery to perform wound closure soft tissue skin graft. Diabetes mellitus type 2 wyo-gefhypp-xkywyqsgv: Continue Accu-Cheks. Will provide sliding scale. Hypertension: Blood pressure uncontrolled with maximum dose of lisinopril, metoprolol, and Norvasc. Hydralazine added on 12/01/2019 Diabetic neuropathy: Continue gabapentin Depression with anxiety: Continue duloxetine CAD: Continue aspirin, clopidogrel, metoprolol and lisinopril.
--- NOTE | 2019-12-01 13:45 | P.PN ---
Date of Service: 12/01/19 S: Patient feels well, no specific complaints. O: Wound VAC removed, good granulation tissue started to form. Wound has demarcated. A: Wound is much improved PE: I will take her to the operating room tomorrow for a split-thickness skin graft from the right side to the right lower leg. The risks of this procedure have been discussed. The possibility of graft failure, and infection, need for further surgeries and procedures was described. She understands and wants to proceed. Home health will assess patient, so that she can have her needs met postoperatively at home.
[2019-12-01] MEDS ORDERED: MAGNESIUM SULFATE 1 gm IVPB 1 GM/100 ML BAG IV ONE (15:32)
[2019-12-01] MEDS: Meropenem 500 MG in NA CHLORIDE 0.9% 100 ML IV SCH (16:59)
[2019-12-01] MEDS: ENOXAPARIN 40 MG/0.4 ML SQ SCH (17:00)
[2019-12-01] MEDS ORDERED: Meropenem 500 MG VIAL IV SCH (17:00)
--- NOTE | 2019-12-01 19:30 | PN ---
Subjective: Patient lying in bed. Wound VAC in place. Denies any headache, nausea, vomiting, chest pain, abdominal pain, constipation, or diarrhea. Objective: Vital Signs: Temperature 97.6, pulse 64, respirations 18, blood pressure 166/76. Lungs: Basal crackles. Heart: S1, S2. Regular. Abdomen: Soft, nontender. Bowel sounds present. Extremities: Right leg 1+ edema with large ulceration covered with wound VAC, 20% necrotic tissue an d noticed on the picture and 80% granulation tissue. Laboratory Data: WBC 4.6, hemoglobin 11.3, platelets are 205. Chemistry shows sodium 137, potassium 3.4, chloride 104, bicarb 27, BUN 3, creatinine 0.4, glucose 153. Micro data growing Pseudomonas ae ruginosa, Klebsiella pneumonia, and Enterococcus faecalis. Assessment And Plan: Patient is currently on Levaquin. We will add another antibiotic as patient's wound is quite significant, and monitor patient for signs of infection. We will recommend to hold of f on graft placement at this point. NF/MODL Voice ID: [id number] Report ID: [id number]
[2019-12-01] MEDS: MELATONIN 5 MG TABLET PO SCH (20:50)
[2019-12-02] MEDS: Meropenem 500 MG in NA CHLORIDE 0.9% 100 ML IV SCH ×3 (00:09→17:15)
[2019-12-02] MEDS: MORPHINE 4 MG/ML SYR IV PRN ×4 (03:19→20:07)
[2019-12-02] MEDS: NA CHLORIDE 0.9% 1,000 ML IV SCH (03:19)
[2019-12-02 05:46] LABS: Absolute Lymphocytes (CBC) 1.5 K/uL (0.7-4.9); Basophils % 0.5 % (0-1.3); MPV 8.4 fL (7.6-11.3); RBC Red Blood Cell Count 3.36 M/uL (3.86-4.86)
[2019-12-02] MEDS: Levofloxacin500mg IV 500 MG/100 ML BAG IV SCH (06:00)
[2019-12-02 06:04] LABS: BUN Blood Urea Nitrogen 3 mg/dL (7-18); Bicarbonate 28 mmol/L (21-32); Glucose Level 124 mg/dL (74-106); Potassium 3.5 mmol/L (3.5-5.1); Sodium Level 138 mmol/L (136-145)
[2019-12-02 06:08] LABS: Magnesium 1.4 mg/dL (1.8-2.4)
[2019-12-02] MEDS ORDERED: Magnesium Sulfate 2gm IVPB 2 G/50 ML BAG IV ONE (06:14)
[2019-12-02 06:30] LABS: Blood Morphology Comment NOT SEEN (NOT SEEN); Platelet Estimate ADEQ
[2019-12-02] MEDS: INSULIN -REGULAR HUMAN 50 UNIT/0.5 ML ML SQ SCH ×4 (07:30→20:14)
[2019-12-02] MEDS ORDERED: propofoL 200 MG/20 ML VIAL IV ONE (07:45)
[2019-12-02] MEDS ORDERED: FENTANYL CITR 100 MCG/2 ML ONE ×3 (07:46→10:15)
[2019-12-02] MEDS ORDERED: MIDAZOLAM HCL 2 MG/2 ML INJ ONE (07:46)
[2019-12-02] MEDS ORDERED: LIDOCAINE 2% MPF 5 ML VIAL ONE (07:46)
[2019-12-02] MEDS ORDERED: HYDROMORPHONE HCL 1 MG/ML INJ ONE (08:10)
[2019-12-02] MEDS: MINERAL OIL, LITE 10 ML VIAL ONE ×2 (08:36→08:37)
[2019-12-02] MEDS ORDERED: NA CHLORIDE 0.9% 1,000 ML ONE (08:42)
[2019-12-02] MEDS ORDERED: ONDANSETRON 4 MG/2 ML VIAL ONE ×2 (08:59→09:46)
[2019-12-02] MEDS ORDERED: dexAMETHasone 4 MG/ML VIAL ONE (08:59)
[2019-12-02] MEDS ORDERED: KETOROLAC 30 MG/ML INJ ONE (09:03)
--- NOTE | 2019-12-02 09:21 | P.OP ---
Preoperative diagnosis: Open wound to the right lower leg Postoperative diagnosis: The same Primary procedure: Debridement Secondary procedure: Application of split-thickness skin graft from the right thigh to the right Anesthesia: General Estimated blood loss: Less than 10 cc Specimen: none sent Operative Technique: The patient brought the operating room and placed supine on the table or after the induction of adequate general anesthesia there the right leg was prepped with a Betadine solution, and she was draped in usual aseptic manner. Attention was turned towards the right upper thigh. The area was prepped with an alcohol solution. Mineral oil was then applied to the skin. The dermatome with a blade set at 18,000 th of an inch to inch wide was used to take a skin graft. The graft was suboptimal and necessitated a 2nd pass with the dermatome at a depth of 22,000 th of an inch to get a thicker piece as the skin of these elderly patient was very thin. Attention was now turned towards the wound on the right lower leg. There were some large pool of debris at the edge of the skin. This was excised using the 10 blade. The base of the wound was down further surgically corrected using a cutting surgical curette to get it back down to good clean viable bleeding tissue. The wound VAC had done an excellent job on increasing the vascular sure to this area. The wound bed was now dried, and the skin applied to the wound base. It was held in place with tori. We obtained good coverage of this wound using 1.5-1 mesh on the skin. At this point a wound VAC was now applied to the wound. The skin was protected with a barrier, the sponge was placed over the graft having placed Adaptic on top of this. It was connected to the pump which provide a good seal. At this point the wound on the thigh was irrigated with a Marcaine solution. A piece of Xeroform gauze is placed in this area. It was then wrapped with a gauze 4x4s to pad the area adequately. At the end of procedure she was stable when sent to the recovery room. Needle sponge instrument count were correct. Complications: None Transferred to: Recovery Room Condition: Good
[2019-12-02] MEDS ORDERED: PROMETHAZINE INJ 25 MG/ML AMP ONE (09:45)
[2019-12-02] MEDS: HYDROMORPHONE HCL 1 MG/ML INJ ONE ×4 (09:45→10:04)
[2019-12-02] MEDS: ASPIRIN EC 81 MG TAB PO SCH (11:53)
[2019-12-02] MEDS: DULOXETINE 30 MG CAP PO SCH (11:53)
[2019-12-02] MEDS: CLOPIDOGREL 75 MG TABLET PO SCH (11:53)
[2019-12-02] MEDS: lisinopriL 20 MG TAB PO SCH (11:53)
[2019-12-02] MEDS: METOPROLOL TAR 50 MG TAB PO SCH (11:54)
[2019-12-02] MEDS: HYDRALAZINE HCL 25 MG TABLET PO SCH ×3 (11:54→20:10)
[2019-12-02] MEDS: AMLODIPINE 10 MG TAB PO SCH (11:54)
[2019-12-02] MEDS ORDERED: POTASSIUM 25 MEQ EFFERV TAB PO ONE (12:00)
--- NOTE | 2019-12-02 16:41 | EKG ---
Test Date: 2018-12-01 Test Time: 15:13:16 Handbag Framer: NENITA MEASUREMENT RESULTS: Intervals: Rate: 73 NE: 212 QRSD: 124 QT: 426 QTc: 469 [place]: P: 6 NE: 212 QRS: -64 T: 49 INTERPRETIVE STATEMENTS: Sinus rhythm with 1st degree AV block Right bundle branch block Left anterior fascicular block Bifascicular block Minimal voltage criteria for LVH, may be normal variant Abnormal ECG Electronically Signed On 12-02-19 16:40:54 LINK AND LINK KNITTING MACHINE OPERATOR by Bruce Wallace
--- NOTE | 2019-12-02 17:06 | P.PN ---
Subjective Date of Service: 12/02/19 Primary Care Provider: Dr. Valero Chief Complaint: Cellulitis right lower limb, Osteomyelitis, open wound right ankle Patient seen by me after her surgery. POD# S/P STSG and wound vac application. Pain reported with movement of R leg/foot. Otherwise, stable with normal mental status. Physical Examination - Vital Signs Temperature: 97.5 F Blood Pressure: 148/67 Pulse: 69 Respirations: 20 Pulse Ox (%): 94 - Physical Exam General: Alert, In no apparent distress, Cooperative HEENT: Atraumatic, Normocephalic, EOMI Neck: Supple Respiratory: Clear to auscultation bilaterally, Normal air movement Cardiovascular: Normal pulses, Regular rate/rhythm, Normal S1 S2 Gastrointestinal: Normal bowel sounds, Soft and benign, Non-distended Musculoskeletal: Swelling, Erythema, Tenderness, Other (Right lower extremity with minimal information) Integumentary: Warmth Neurological: Normal speech, Normal affect - Studies Medications List Reviewed: Yes Assessment & Plan Physician Review Additional Text: Impression: 7.5 x 7.5 cm ulcerated ulcer to the right lower extremity below the knee medially with cellulitis, wound culture positive for Klebsiella and Pseudomonas Diabetes mellitus type 2 bne-qgghfva-pszofhcdu Hypertension Diabetic neuropathy Depression with anxiety CAD Plan: 7.5 x 7.5 cm ulcerated ulcer to the right lower extremity below the knee medially with cellulitis, wound culture positive for Klebsiella and Pseudomonas : Status post Excision and sharp debridement of open wound right lower leg STSG on 12/02/2019 with wound vac exchange. Currently on levofloxacin IV monotherapy Flap protocol and wound check as per Plastic surgery Diabetes mellitus type 2 hnz-jdtcwbq-btcfhkved: Continue Accu-Cheks. Will provide sliding scale. Hypertension: Blood pressure uncontrolled with maximum dose of lisinopril, metoprolol, and Norvasc. Hydralazine added on 12/01/2019 Diabetic neuropathy: Continue gabapentin Depression with anxiety: Continue duloxetine CAD: Continue aspirin, clopidogrel, metoprolol and lisinopril.
[2019-12-02] MEDS: ENOXAPARIN 40 MG/0.4 ML SQ SCH (17:15)
--- NOTE | 2019-12-02 17:31 | PN ---
Subjective: Patient lying in bed. Had skin graft placement by surgical team from the right thigh. Patient is doing well. No new complaints. Objective: Vital Signs: Temperature 97, pulse 76, respirations 18, blood pressure 141/73. Lungs: Basal crackles. HEART: S1, S2. Regular. Abdomen: Soft, nontender. Bowel sounds present. Extremities: No edema. Laboratory Data: WBC 4.8, hemoglobin 10.8, platelets are 211. Chemistry shows sodium 138, potassium 3.5, chloride 103, bicarb 28, BUN 3, creatinine 0.4, glucose 184. Micro data is growing Pseudomonas , Klebsiella, Enterococcus from the right lower extremity wound. Assessment And Plan: Right lower extremity wound, status post graft placement. Right thigh surgical wound. Continue antibiotic and wound care. We will follow the patient as needed. NF/MODL Voice ID: [id number] Report ID: [id number]
[2019-12-02] MEDS: MELATONIN 5 MG TABLET PO SCH (20:08)
[2019-12-03] MEDS: Meropenem 500 MG in NA CHLORIDE 0.9% 100 ML IV SCH ×4 (00:17→23:55)
[2019-12-03] MEDS: MORPHINE 4 MG/ML SYR IV PRN ×2 (00:17→05:24)
[2019-12-03] MEDS: NA CHLORIDE 0.9% 1,000 ML IV SCH ×4 (05:11→23:55)
[2019-12-03 06:07] LABS: ALT/SGPT 33 U/L (12-78); AST/SGOT 39 U/L (15-37); Albumin 2.5 g/dL (3.4-5.0); Alkaline Phosphatase 135 U/L (45-117); BUN Blood Urea Nitrogen 6 mg/dL (7-18); Bicarbonate 29 mmol/L (21-32); Bilirubin Total 0.4 mg/dL (0.2-1.0); Glucose Level 165 mg/dL (74-106); Magnesium 1.8 mg/dL (1.8-2.4); Protein, Total 7.6 g/dL (6.4-8.2); Sodium Level 137 mmol/L (136-145)
[2019-12-03 06:22] LABS: Absolute Lymphocytes (CBC) 1.3 K/uL (0.7-4.9); Basophils % 0.2 % (0-1.3); Hematocrit 32.1 % (36.0-45.0); Lymphocytes % 22.9 % (15.3-44.8); MPV 8.9 fL (7.6-11.3); RBC Red Blood Cell Count 3.43 M/uL (3.86-4.86)
[2019-12-03] MEDS: Levofloxacin500mg IV 500 MG/100 ML BAG IV SCH (06:44)
[2019-12-03] MEDS ORDERED: Magnesium Sulfate 2gm IVPB 2 G/50 ML BAG IV ONE (08:00)
[2019-12-03] MEDS ORDERED: MAGNESIUM SULFATE 1 gm IVPB 1 GM/100 ML BAG IV ONE (09:00)
[2019-12-03] MEDS: INSULIN -REGULAR HUMAN 50 UNIT/0.5 ML ML SQ SCH ×4 (09:25→22:08)
[2019-12-03] MEDS: AMLODIPINE 10 MG TAB PO SCH (09:25)
[2019-12-03] MEDS: lisinopriL 20 MG TAB PO SCH (09:26)
[2019-12-03] MEDS: CLOPIDOGREL 75 MG TABLET PO SCH (09:26)
[2019-12-03] MEDS: DULOXETINE 30 MG CAP PO SCH (09:26)
[2019-12-03] MEDS: ASPIRIN EC 81 MG TAB PO SCH (09:26)
[2019-12-03] MEDS: METOPROLOL TAR 50 MG TAB PO SCH (09:26)
[2019-12-03] MEDS: HYDRALAZINE HCL 25 MG TABLET PO SCH ×3 (09:27→21:58)
[2019-12-03] MEDS: HYDROCODONE/APAP 7.5/325 MG TAB PO PRN ×3 (09:44→23:55)
--- NOTE | 2019-12-03 11:53 | P.PN ---
Subjective Date of Service: 12/03/19 Primary Care Provider: Dr. Valero Chief Complaint: Cellulitis right lower limb, Osteomyelitis, open wound right ankle POD#1 S/P STSG and wound vac application. Pain is controlled with MMP. No acute events overnight. Physical Examination - Vital Signs Temperature: 97.5 F Blood Pressure: 148/67 Pulse: 69 Respirations: 20 Pulse Ox (%): 94 - Physical Exam General: Alert, In no apparent distress, Cooperative HEENT: Atraumatic, Normocephalic, EOMI Neck: Supple Respiratory: Clear to auscultation bilaterally, Normal air movement Cardiovascular: No edema, Normal pulses, Regular rate/rhythm Gastrointestinal: Normal bowel sounds, Soft and benign, Non-distended Musculoskeletal: Warmth, Other (Wound vac attached to R ankle. R thigh (donor site) without evidence of bleeding) Neurological: Normal speech, Normal affect - Studies Medications List Reviewed: Yes Assessment & Plan Physician Review Additional Text: Impression: 7.5 x 7.5 cm ulcerated ulcer to the right lower extremity below the knee medially with cellulitis, wound culture positive for Klebsiella and Pseudomonas Diabetes mellitus type 2 adf-eedeufe-bzfltlria Hypertension Diabetic neuropathy Depression with anxiety CAD Plan: 7.5 x 7.5 cm ulcerated ulcer to the right lower extremity below the knee medially with cellulitis, wound culture positive for Klebsiella and Pseudomonas : Status post Excision and sharp debridement of open wound right lower leg STSG on 12/02/2019 with wound vac exchange. Currently on levofloxacin IV monotherapy Flap protocol and wound check as per Plastic surgery Diabetes mellitus type 2 nuw-jrxmvxg-ehvaoegzx: Continue Accu-Cheks. Will provide sliding scale. Hypertension: Blood pressure uncontrolled with maximum dose of lisinopril, metoprolol, and Norvasc. Hydralazine added on 12/01/2019. PRN hydralazine ordered. BP expected to improve with adequate pain control. Diabetic neuropathy: Continue gabapentin Depression with anxiety: Continue duloxetine CAD: Continue aspirin, clopidogrel, metoprolol and lisinopril. Time Spent Managing Pts Care (In Minutes): 35
[2019-12-03] MEDS ORDERED: HYDRALAZINE HCL 20 MG/ML VIAL IV PRN (11:54)
[2019-12-03] MEDS: ENOXAPARIN 40 MG/0.4 ML SQ SCH (17:10)
--- NOTE | 2019-12-03 17:43 | PN ---
Subjective: Patient lying in bed. No new acute event. Chart reviewed. Having pain at the donor si te of the graft. No fevers. No other challenges. Objective: Vital Signs: Temperature 97, pulse 65, respirations 16, blood pressure 147/67. Extremities: Right leg wound in wound VAC dressing. No changes in examination. Laboratory Data: Shows WBC 5.8, hemoglobin 10.8, platelets are 240. Chemistry shows sodium 137, pot assium 4, chloride 104, bicarb 29, BUN 6, creatinine 0.6, glucose 165. Micro data is growing pseudom onas, klebsiella and enterococcus. Assessment And Plan: Right leg infection status post surgical debridement and skin graft, right thig h wound secondary to surgical removal of the skin graft donor site. Continue antibiotic with meropen em and Levaquin. We will follow the patient as needed. Meropenem can be discontinued after 5 days t otal treatment. NF/MODL Voice ID: [id number] Report ID: [id number]
[2019-12-03] MEDS: MELATONIN 5 MG TABLET PO SCH (21:58)
[2019-12-04 06:18] LABS: BUN Blood Urea Nitrogen 4 mg/dL (7-18); Bicarbonate 28 mmol/L (21-32); Glucose Level 99 mg/dL (74-106); Magnesium 1.5 mg/dL (1.8-2.4); Potassium 3.6 mmol/L (3.5-5.1); Sodium Level 142 mmol/L (136-145)
[2019-12-04] MEDS: Levofloxacin500mg IV 500 MG/100 ML BAG IV SCH (06:40)
[2019-12-04] MEDS: HYDROCODONE/APAP 7.5/325 MG TAB PO PRN (06:40)
[2019-12-04] MEDS ORDERED: MAGNESIUM SULFATE 1 gm IVPB 1 GM/100 ML BAG IV ONE (06:43)
[2019-12-04] MEDS: INSULIN -REGULAR HUMAN 50 UNIT/0.5 ML ML SQ SCH ×2 (07:30→11:30)
[2019-12-04] MEDS ORDERED: Magnesium Sulfate 2gm IVPB 2 G/50 ML BAG IV ONE (09:00)
[2019-12-04] MEDS ORDERED: POTASSIUM 25 MEQ EFFERV TAB PO ONE (09:00)
[2019-12-04 09:26] VITALS: O2SAT 95
[2019-12-04] MEDS: Meropenem 500 MG in NA CHLORIDE 0.9% 100 ML IV SCH (09:41)
[2019-12-04] MEDS: DULOXETINE 30 MG CAP PO SCH (09:42)
[2019-12-04] MEDS: lisinopriL 20 MG TAB PO SCH (09:42)
[2019-12-04] MEDS: METOPROLOL TAR 50 MG TAB PO SCH (09:42)
[2019-12-04] MEDS: HYDRALAZINE HCL 25 MG TABLET PO SCH ×2 (09:42→15:29)
[2019-12-04] MEDS: AMLODIPINE 10 MG TAB PO SCH (09:43)
[2019-12-04] MEDS: ASPIRIN EC 81 MG TAB PO SCH (09:43)
[2019-12-04] MEDS: CLOPIDOGREL 75 MG TABLET PO SCH (09:43)
--- NOTE | 2019-12-04 14:09 | P.PN ---
Date of Service: 12/04/19 S: Patient states her will leg feels much better today. States that the donor site is now the 1 that hurts. O: Wound VAC intact, minimal erythema around margins A: Surgically stable PE: The wound VAC will be left in place until she sees me in my office on Sunday. I will remove it at that time. She may be discharged when the hospitalist and Infectious medicine agrees. Did she have any questions or problems, she is to go to the emergency room, or contact me. She has been given a prescription for pain, I will let Dr. Vasquez determine whether not she requires antibiotics, from my point of view, she has had adequate postoperative coverage.
--- NOTE | 2019-12-04 14:14 | P.DS ---
Admission Date: 11/27/19 Discharge Date: 12/04/19 Primary Care Provider: Dr. Valero Disposition: ROUTINE DISCHARGE Discharge Condition: GOOD Reason for Admission: Cellulitis right lower limb, Osteomyelitis, open wound right ankle Brief History of Present Illness: Patient is a 69-year-old female with unknown past medical history hypertension who presented to the ER with an open right ankle wound. An MRI of the right lower extremity ruled out osteomyelitis but did reveal some subcutaneous edema. Wound culture yielded Klebsiella and Pseudomonas. Patient was placed on levofloxacin. She was taken to the OR for a washout and eventually underwent a split-thickness skin graft and wound VAC placement. Her hospital course has been complicated by elevated blood pressure, which was attributed to pain. Otherwise, she had an unremarkable stay. She has been cleared by plastic surgeon Hospital Course: Patient is a 69-year-old female with unknown past medical history hypertension who presented to the ER with an open right ankle wound. An MRI of the right lower extremity ruled out osteomyelitis but did reveal some subcutaneous edema. Wound culture yielded Klebsiella and Pseudomonas. Patient was placed on levofloxacin. She was taken to the OR for a washout and eventually underwent a split-thickness skin graft and wound VAC placement. Her hospital course has been complicated by elevated blood pressure, which was attributed to pain. Otherwise, she had an unremarkable stay. She has been cleared by plastic surgeon Vital Signs/Physical Exam: Temp Pulse Resp BP Pulse Ox 96.8 F 61 15 131/61 97 12/04/19 12:00 12/04/19 12:00 12/04/19 12:17 12/04/19 12:00 12/04/19 12:17 General: Alert, In no apparent distress, Cooperative HEENT: Atraumatic, Normocephalic, EOMI Neck: Supple Respiratory: Normal air movement Cardiovascular: No edema, Normal pulses, Regular rate/rhythm, Normal S1 S2 Gastrointestinal: Normal bowel sounds, Soft and benign, Non-distended Musculoskeletal: Swelling, Erythema, Other (Wound VAC in place) Integumentary: Warmth Neurological: Normal speech, Normal affect Laboratory Data at Discharge: WBC 5.8 K/uL (4.3-10.9) D 12/03/19 05:38 Hgb 10.8 g/dL (12.0-15.0) L 12/03/19 05:38 Hct 32.1 % (36.0-45.0) L 12/03/19 05:38 Plt Count 240 K/uL (152-406) 12/03/19 05:38 PT 12.3 SECONDS (9.5-12.5) 11/27/19 14:35 INR 1.04 11/27/19 14:35 APTT 48.8 SECONDS (24.3-36.9) H 11/27/19 14:35 Sodium 142 mmol/L (136-145) 12/04/19 05:24 Potassium 3.6 mmol/L (3.5-5.1) 12/04/19 05:24 BUN 4 mg/dL (7-18) L 12/04/19 05:24 Creatinine 0.41 mg/dL (0.55-1.3) L 12/04/19 05:24 Glucose 99 mg/dL (74-106) 12/04/19 05:24 Magnesium 1.5 mg/dL (1.8-2.4) L 12/04/19 05:24 Total Bilirubin 0.4 mg/dL (0.2-1.0) 12/03/19 05:38 AST 39 U/L (15-37) H 12/03/19 05:38 ALT 33 U/L (12-78) 12/03/19 05:38 Alkaline Phosphatase 135 U/L (45-117) H 12/03/19 05:38 Lipase 77 U/L (73-393) 11/27/19 14:35 Home Medications: Amlodipine [Norvasc*] 10 mg PO DAILY 10/17/19 Clonidine HCl [Catapres] 0.1 mg PO PRN PRN 10/17/19 Duloxetine HCl [Cymbalta] 30 mg PO DAILY 10/17/19 Melatonin 10 mg PO BEDTIME 10/17/19 Metformin HCl 1,000 mg PO BID 10/17/19 Metoprolol Tartrate 100 mg PO DAILY 10/17/19 clonazePAM [Klonopin*] 1 mg PO TIDP PRN 10/17/19 Aspirin [Aspirin EC 81 MG] 81 mg PO DAILY #90 tablet. 10/19/19 Gabapentin [Neurontin*] 100 mg PO TID PRN #30 cap 10/19/19 Clopidogrel Bisulfate [Plavix*] 1 tab PO DAILY 11/27/19 Furosemide [Lasix*] 20 mg PO DAILY 11/27/19 lisinopriL [Prinivil*] 20 mg PO DAILY 11/27/19 traMADol HCL [Ultram*] 50 mg PO TID PRN #24 tab 12/04/19 New Medications: traMADol HCL [Ultram*] 50 mg PO TID PRN #24 tab PRN Reason: Pain
[2019-12-04 16:28] VITALS: BP 161/72; TEMP 97.6
== END 2019-12-04 17:19 | disposition home health service (06) | DRG 623 ==
LOC: ER 13:07 → ERHOLD 14:22 → 2ND 15:28
PROVIDERS: ADMIT Family Medicine; ATTEND Internal Medicine
PROC: 2W1QX6Z Compression of Right Lower Leg using Pressure Dressing (ICD-10-PCS; 2019-11-28)
PROC: 0HBKXZZ Excision of Right Lower Leg Skin, External Approach (ICD-10-PCS; principal; 2019-11-28 07:30)
PROC: 0HRKX74 Replacement of Right Lower Leg Skin with Autologous Tissue Substitute, Partial Thickness, External Approach (ICD-10-PCS; 2019-12-02)
PROC: 0HBHXZZ Excision of Right Upper Leg Skin, External Approach (ICD-10-PCS; 2019-12-02)
DX: E11.622 Type 2 diabetes mellitus with other skin ulcer (principal); L97.211 Non-pressure chronic ulcer of right calf limited to breakdown of skin; L03.115 Cellulitis of right lower limb; E11.40 Type 2 diabetes mellitus with diabetic neuropathy, unspecified; B96.5 Pseudomonas (aeruginosa) (mallei) (pseudomallei) as the cause of diseases classified elsewhere; B96.1 Klebsiella pneumoniae [K. pneumoniae] as the cause of diseases classified elsewhere; B95.2 Enterococcus as the cause of diseases classified elsewhere; I10 Essential (primary) hypertension; M32.9 Systemic lupus erythematosus, unspecified; M06.9 Rheumatoid arthritis, unspecified; F41.8 Other specified anxiety disorders; I25.10 Atherosclerotic heart disease of native coronary artery without angina pectoris
CPT/HCPCS: 36415; 71045; 73718; 80048; 80053; 80076; 80202; 81003; 82550; 82553; 82947; 83036; 83605; 83690; 83735; 84132; 84145; 84484; 85025; 85610; 85730; 87040; 87070; 87077; 87186; 87205; 93005; 96365; 99285; J0692; J1170; J1650; J2175; J2250; J2405; J2550; J2704; J3010; J3370; J3475; J7030; J7040

== ENCOUNTER 2019-12-17 14:52 | Inpatient (IN) | payer OTHER ==
[2019-12-17] MEDS ORDERED: MORPHINE 4 MG/ML SYR ONE ×2 (15:53→19:14)
[2019-12-17] MEDS ORDERED: ONDANSETRON 4 MG/2 ML VIAL ONE (15:53)
[2019-12-17 16:22] LABS: Absolute Lymphocytes (CBC) 1.8 K/uL (0.7-4.9); Basophils % 0.7 % (0-1.3); Hematocrit 24.6 % (36.0-45.0); Lymphocytes % 14.5 % (15.3-44.8); MPV 9.2 fL (7.6-11.3); RBC Red Blood Cell Count 2.75 M/uL (3.86-4.86)
[2019-12-17 16:25] LABS: Protime INR 1.1
[2019-12-17 16:34] LABS: BUN Blood Urea Nitrogen 6 mg/dL (7-18); Bicarbonate 29 mmol/L (21-32); Glucose Level 121 mg/dL (74-106); Potassium 3.5 mmol/L (3.5-5.1); Sodium Level 139 mmol/L (136-145)
--- NOTE | 2019-12-17 16:41 | ER ---
Nurse's Notes [facility] Name: Bridgett Gotti Age: 69 yrs Sex: Female : 1950 Arrival Date: 12/17/2019 Time: 14:55 Bed 16 Private MD: Diagnosis: Cellulitis of right lower limb;Wound infection Presentation: 12/17 15:12 Presenting complaint: Child states: had surgical debridement on RLE on Nov 27 the iw following Sunday they did skin graft, leg around wound is now macerated , was taken off wound vac, pain has increased and skin is warm to touch now, surgeon was Dr. Aden. Transition of care: patient was not received from another setting of care. Onset of symptoms was December 17, 2019. Risk Assessment: Do you want to hurt yourself or someone else? Patient reports no desire to harm self or others. Initial Sepsis Screen: Does the patient meet any 2 criteria? No. Patient's initial sepsis screen is negative. Does the patient have a suspected source of infection? No. Patient's initial sepsis screen is negative. Care prior to arrival: None. 15:12 Method Of Arrival: Wheelchair iw 15:12 Acuity: LASHONDA 3 iw Historical: - Allergies: 15:15 Bactrim; iw 15:15 Doxycycline; iw 15:15 Sulfa (Sulfonamide Antibiotics); iw - Home Meds: 15:15 amlodipine 10 mg tab 1 tab once daily [Active]; clonidine HCl 0.1 mg Oral tab as needed iw [Active]; Cymbalta 30 mg Oral cpDR 1 cap once daily [Active]; Klonopin 1 mg Oral tab 1 tab 3 times per day for PRN for anxiety [Active]; Lasix 20 mg Oral tab 1 tab once daily [Active]; lisinopril 20 mg Oral tab 1 tab once daily [Active]; melatonin 10 mg Oral tab [Active]; metformin 1,000 mg Oral tab 1 tab 2 times per day [Active]; metoprolol tartrate 100 mg Oral tab 1 tab once daily [Active]; nitrofurantoin macrocrystal 100 mg Oral cap 1 cap 2 times daily [Active]; Norvasc 10 mg Oral tab 1 tab once daily [Active]; Trintellix 10 mg Oral tab 1 tab once daily [Active]; - PMHx: 15:15 Diabetes - NIDDM; Hypertension; Lupus; Rheumatoid Arthritis; iw - PSHx: 15:15 Toe Surgery; Hysterectomy; Tonsillectomy; iw - Immunization history:: Adult Immunizations up to date. - Social history:: Smoking status: Patient denies any tobacco usage or history of. - Ebola Screening: : Patient negative for fever greater than or equal to 101.5 degrees Fahrenheit, and additional compatible Ebola Virus Disease symptoms Patient denies exposure to infectious person Patient denies travel to an Ebola-affected area in the 21 days before illness onset No symptoms or risks identified at this time. - Family history:: not pertinent. - Hospitalizations: : No recent hospitalization is reported. Screenin:16 Abuse screen: Denies threats or abuse. Denies injuries from another. Nutritional fu screening: No deficits noted. Tuberculosis screening: No symptoms or risk factors identified. Fall Risk None identified. Assessment: 15:20 General: Appears in no apparent distress. uncomfortable, well groomed, well developed, sg well nourished, Behavior is calm, cooperative, appropriate for age, drowsy. Pain: Complains of pain in right calf and right Achilles Quality of pain is described as aching. Neuro: Level of Consciousness is awake, alert, obeys commands, Oriented to person, place, time. Cardiovascular: Patient's skin is warm and dry. Chest pain is denied. Respiratory: Airway is patent Respiratory effort is even, unlabored, Respiratory pattern is regular, symmetrical. GI: Abdomen is round non-distended, Reports tolerance of fluids, tolerance of food. : No signs and/or symptoms were reported regarding the genitourinary system. EENT: No signs and/or symptoms were reported regarding the EENT system. Derm: Skin is pink, warm \T\ dry. Derm: Reports pain that is 6 out of 10 on a pain scale. Derm: Wound noted right Achilles Wound is drainage that is serosanguinous, a dressing and nathanael wrap applied today by pt family member, pt reports is her sx and she had a skin graft to the area that was rejected. Musculoskeletal: Circulation, motion, and sensation intact. Range of motion: intact in all extremities. 19:18 Reassessment: Patient appears in no apparent distress at this time. Patient and/or fu family updated on plan of care and expected duration. Pain level reassessed. Patient is alert, oriented x 3, equal unlabored respirations, skin warm/dry/pink. Notified on plan for admission. 20:30 Reassessment: Patient appears in no apparent distress at this time. Patient and/or fu family updated on plan of care and expected duration. Pain level reassessed. Patient is alert, oriented x 3, equal unlabored respirations, skin warm/dry/pink. 21:10 Reassessment: Patient appears in no apparent distress at this time. Patient and/or fu family updated on plan of care and expected duration. Pain level reassessed. Patient is alert, oriented x 3, equal unlabored respirations, skin warm/dry/pink. Vital Signs: 15:15 BP 188 / 84; Pulse 84; Resp 16; Temp 98.2; Pulse Ox 98% on R/A; Weight 79.38 kg; Height iw 5 ft. 1 in. (154.94 cm); Pain 9/10; 17:12 BP 174 / 64; Pulse 80; Resp 17 S; Pulse Ox 98% on R/A; sg 19:00 BP 166 / 71; Pulse 75; Resp 18; Pulse Ox 97% on R/A; Pain 3/10; fu 20:00 BP 166 / 70; Pulse 74; Pulse Ox 97% ; fu 21:02 BP 166 / 70; Pulse 75; Resp 18; Temp 98.6; Pulse Ox 99% on R/A; Pain 3/10; fu 15:15 Body Mass Index 33.07 (79.38 kg, 154.94 cm) iw ED Course: 14:55 Patient arrived in ED. mr 15:14 Triage completed. iw 15:16 Arm band placed on. iw 15:26 Mateo Mckinney, RN is Primary Nurse. sg 15:29 Zhao Madera MD is Attending Physician. rn 15:45 Initial lab(s) drawn, by me, sent to lab. First set of blood cultures drawn by me. sg Inserted saline lock: 20 gauge in left antecubital area, using aseptic technique. Blood collected. 16:08 Second set of blood cultures drawn by me. sg 16:40 Jean Melendrez DO is Hospitalizing Provider. rn 17:00 Dressings: non-adherent dressing x 1 right Achilles. Nathanael wrap to right Achilles. Wound sg care: to cellulitis located on right Achilles was cleaned with soap and water, dressed with 4X4s, Patient tolerated well. 21:16 No provider procedures requiring assistance completed. Patient admitted, IV remains in fu place. 21:17 Patient has correct armband on for positive identification. Bed in low position. Side fu rails up X 1. Pulse ox on. NIBP on. Administered Medications: 16:15 Drug: morphine 4 mg Route: IVP; Site: left antecubital; sg 16:15 Drug: Zofran 4 mg Route: IVP; Site: left antecubital; sg 17:10 Drug: Cefepime 1 grams Route: IVPB; Rate: 200 ml/hr; Infused Over: 30 mins; Site: left sg antecubital; 17:40 Follow up: Response: No adverse reaction; IV Status: Completed infusion sg 17:43 Follow up: IV Status: Completed infusion; IV Intake: 100ml sg 19:10 Drug: vancoMYCIN 1 grams Route: IVPB; Infused Over: 2 hrs; Site: left antecubital; sg 19:10 Drug: morphine 4 mg Route: IVP; Site: left antecubital; sg Intake: 17:43 IV: 100ml; Total: 100ml. Outcome: 16:40 Decision to Hospitalize by Provider. rn 21:29 Admitted to Med/surg accompanied by tech, room 207, Report called to ILAN Costa 21:29 Condition: stable 21:29 Instructed on the need for admit. 21:47 Patient left the ED. fu Signatures: Mateo Mckinney RN RN MontielTasia flanagan Irene, RN RN Zhao Madera MD MD rn Umadhay, Felix, RN RN
--- NOTE | 2019-12-17 16:42 | EDPHYS ---
Physician Documentation [facility] Name: Bridgett Gotti Age: 69 yrs Sex: Female : 1950 Arrival Date: 12/17/2019 Time: 14:55 Bed 16 Private MD: ED Physician Zhao Madera HPI: 12/17 15:41 This 69 yrs old Female presents to ER via Wheelchair with complaints of Wound rn Infection. 15:41 The patient presents with cellulitis of the right leg. Description: draining, rn erythematous, swollen, warm. Onset: The symptoms/episode began/occurred at an unknown time. Modifying factors: the symptoms are alleviated by nothing, the symptoms are aggravated by nothing. Severity of symptoms: At their worst the symptoms were moderate, in the emergency department the symptoms are unchanged. The patient has not experienced similar symptoms in the past. Reports had wound debridement by Dr. Aden 2 weeks ago, followed by skin graft that didn't take, now having increased pain, drainage, and redness/warmth around wound. Seen by Dr. Aden yesterday and today looks worse. . Historical: - Allergies: 15:15 Bactrim; iw 15:15 Doxycycline; iw 15:15 Sulfa (Sulfonamide Antibiotics); iw - Home Meds: 15:15 amlodipine 10 mg tab 1 tab once daily [Active]; clonidine HCl 0.1 mg Oral tab as needed iw [Active]; Cymbalta 30 mg Oral cpDR 1 cap once daily [Active]; Klonopin 1 mg Oral tab 1 tab 3 times per day for PRN for anxiety [Active]; Lasix 20 mg Oral tab 1 tab once daily [Active]; lisinopril 20 mg Oral tab 1 tab once daily [Active]; melatonin 10 mg Oral tab [Active]; metformin 1,000 mg Oral tab 1 tab 2 times per day [Active]; metoprolol tartrate 100 mg Oral tab 1 tab once daily [Active]; nitrofurantoin macrocrystal 100 mg Oral cap 1 cap 2 times daily [Active]; Norvasc 10 mg Oral tab 1 tab once daily [Active]; Trintellix 10 mg Oral tab 1 tab once daily [Active]; - PMHx: 15:15 Diabetes - NIDDM; Hypertension; Lupus; Rheumatoid Arthritis; iw - PSHx: 15:15 Toe Surgery; Hysterectomy; Tonsillectomy; iw - Immunization history:: Adult Immunizations up to date. - Social history:: Smoking status: Patient denies any tobacco usage or history of. - Ebola Screening: : Patient negative for fever greater than or equal to 101.5 degrees Fahrenheit, and additional compatible Ebola Virus Disease symptoms Patient denies exposure to infectious person Patient denies travel to an Ebola-affected area in the 21 days before illness onset No symptoms or risks identified at this time. - Family history:: not pertinent. - Hospitalizations: : No recent hospitalization is reported. ROS: 15:41 Constitutional: Negative for fever, chills, and weight loss, Eyes: Negative for injury, rn pain, redness, and discharge, Cardiovascular: Negative for chest pain, palpitations, and edema, Respiratory: Negative for shortness of breath, cough, wheezing, and pleuritic chest pain, Abdomen/GI: Negative for abdominal pain, nausea, vomiting, diarrhea, and constipation, MS/Extremity: + RLE wound with drainage and redness Skin: Negative for injury Neuro: Negative for headache, weakness, numbness, tingling, and seizure. Exam: 15:41 Constitutional: Overweight female, no acute distress Head/Face: Normocephalic, rn atraumatic. ENT: MMM Cardiovascular: Regular rate and rhythm. No pulse deficits. Respiratory: No increased work of breathing, no retractions or nasal flaring. Abdomen/GI: soft, non-tender MS/ Extremity: Pulses equal, no cyanosis. + RLE wound with fibrinous tissue with green/connelly discoloration. + surrounding erythema and warmth, no streaking Neuro: Awake and alert, GCS 15, oriented to person, place, time, and situation. Vital Signs: 15:15 BP 188 / 84; Pulse 84; Resp 16; Temp 98.2; Pulse Ox 98% on R/A; Weight 79.38 kg; Height iw 5 ft. 1 in. (154.94 cm); Pain 9/10; 17:12 BP 174 / 64; Pulse 80; Resp 17 S; Pulse Ox 98% on R/A; sg 19:00 BP 166 / 71; Pulse 75; Resp 18; Pulse Ox 97% on R/A; Pain 3/10; fu 20:00 BP 166 / 70; Pulse 74; Pulse Ox 97% ; fu 21:02 BP 166 / 70; Pulse 75; Resp 18; Temp 98.6; Pulse Ox 99% on R/A; Pain 3/10; fu 15:15 Body Mass Index 33.07 (79.38 kg, 154.94 cm) iw MDM: 15:29 Patient medically screened. rn 16:34 Differential diagnosis: cellulitis, wound infection, cellulitis. Data reviewed: vital rn signs, nurses notes, lab test result(s), and as a result, I will admit patient. Counseling: I had a detailed discussion with the patient and/or guardian regarding: the historical points, exam findings, and any diagnostic results supporting the discharge/admit diagnosis, lab results, the need for further work-up and treatment in the hospital. Response to treatment: the patient's symptoms have mildly improved after treatment, and as a result, I will admit patient. Admission orders: after a detailed discussion of the patient's condition and case, the admit orders are written by me. ED course: Will admit for wound infection/cellulitis, consulted with Dr. Aden. . 12/17 15:39 Order name: CBC with Diff; Complete Time: 16:29 12/17 15:39 Order name: Basic Metabolic Panel; Complete Time: 16:41 rn 12/17 15:39 Order name: Protime (+inr); Complete Time: 16:29 12/17 15:39 Order name: Ptt, Activated; Complete Time: 16:29 12/17 15:39 Order name: Procalcitonin; Complete Time: 16:52 rn 12/17 15:39 Order name: Wound Culture rn 12/17 15:39 Order name: IV Start rn 12/17 15:39 Order name: Blood Culture Adult (2) rn Administered Medications: 16:15 Drug: morphine 4 mg Route: IVP; Site: left antecubital; sg 16:15 Drug: Zofran 4 mg Route: IVP; Site: left antecubital; sg 17:10 Drug: Cefepime 1 grams Route: IVPB; Rate: 200 ml/hr; Infused Over: 30 mins; Site: left sg antecubital; 17:40 Follow up: Response: No adverse reaction; IV Status: Completed infusion sg 17:43 Follow up: IV Status: Completed infusion; IV Intake: 100ml sg 19:10 Drug: vancoMYCIN 1 grams Route: IVPB; Infused Over: 2 hrs; Site: left antecubital; sg 19:10 Drug: morphine 4 mg Route: IVP; Site: left antecubital; sg Disposition: 12/17/19 16:40 Hospitalization ordered by Jean Melendrez for Inpatient Admission. Preliminary diagnosis are Cellulitis of right lower limb, Wound infection. - Bed requested for Telemetry/MedSurg (Inpatient). - Status is Inpatient Admission. fu - Condition is Stable. - Problem is an ongoing problem. - Symptoms are unchanged. UTI on Admission? No Signatures: Dispatcher [employer] EDMS Mateo Mckinney, RN ILAN Audrey Hernandez RN ILAN Zhao Madera MD MD rn Lasagna, Tonya, RN RN 1 Richard Walker RN RN Lashell Styles mw2 Corrections: (The following items were deleted from the chart) 19:38 16:40 Hospitalization Ordered by Jean Melendrez DO for Inpatient Admission. Preliminary mw2 diagnosis is Cellulitis of right lower limb; Wound infection. Bed requested for Telemetry/MedSurg (Inpatient). Status is Inpatient Admission. Condition is Stable. Problem is an ongoing problem. Symptoms are unchanged. UTI on Admission? No. rn 21:09 19:38 12/17/2019 16:40 Hospitalization Ordered by Jean Melendrez DO for Inpatient tl1 Admission. Preliminary diagnosis is Cellulitis of right lower limb; Wound infection. Bed requested for Telemetry/MedSurg (Inpatient). Status is Inpatient Admission. Condition is Stable. Problem is an ongoing problem. Symptoms are unchanged. UTI on Admission? No. mw2 21:47 21:09 12/17/2019 16:40 Hospitalization Ordered by Jean Melendrez DO for Inpatient fu Admission. Preliminary diagnosis is Cellulitis of right lower limb; Wound infection. Bed requested for Telemetry/MedSurg (Inpatient). Status is Inpatient Admission. Condition is Stable. Problem is an ongoing problem. Symptoms are unchanged. UTI on Admission? No. tl1
--- NOTE | 2019-12-17 17:48 | P.HP ---
Certification for Inpatient Patient admitted to: Inpatient Patient will require the following post-hospital care: Home Health Services Practitioner: I am a practitioner with admitting privileges, knowledge of patient current condition, hospital course, and medical plan of care. Services: Services provided to patient in accordance with Admission requirements found in Title 42 Section 412.3 of the Code of Federal Regulations Patient History Date of Service: 12/17/19 Primary Care Provider: OPAL Hercules; Surgery-Dr. Aden Reason for admission: Failed skin graft History of Present Illness: 69-year-old female with history of hypertension, diabetes, and GERD. Patient recently hospitalized early this month for right lower extremity cellulitis with open wound to the medial aspect of the leg below the knee. Patient was seen and treated by surgery. Patient found to have wound culture positive for Pseudomonas and Klebsiella. Patient had I and D at that time with wound VAC. This was followed by skin graft. Patient was sent home. Patient followed up with surgery recently. Skin graft has felt. Area of ulcer now with increasing edema, erythema. Surgery recommended admission for further treatment. White count elevated at 12.6, hemoglobin 8.5. Sodium 139, potassium 3.5, BUN of 6, creatinine 0.5 with a GFR of greater than 90. Pro calcitonin negative. Patient admitted for further evaluation and treatment. When I saw the patient in the ER, she appeared comfortable. Patient reported pain over the past several days. Large area of cellulitis to the right lower extremity. Failed skin graft noted. Allergies doxycycline Allergy (Severe, Verified 10/17/19 18:18) Nausea/Vomiting Sulfa (Sulfonamide Antibiotics) Allergy (Severe, Verified 05/05/17 02:34) Hives sulfamethoxazole [From Bactrim] Allergy (Severe, Verified 05/05/17 02:34) Hives trimethoprim [From Bactrim] Allergy (Severe, Verified 05/05/17 02:34) Hives Home medications list reviewed: Yes Home Medications: Amlodipine [Norvasc*] 10 mg PO DAILY 10/17/19 Clonidine HCl [Catapres] 0.1 mg PO PRN PRN 10/17/19 Duloxetine HCl [Cymbalta] 30 mg PO DAILY 10/17/19 Melatonin 10 mg PO BEDTIME 10/17/19 Metformin HCl 1,000 mg PO BID 10/17/19 Metoprolol Tartrate 100 mg PO DAILY 10/17/19 clonazePAM [Klonopin*] 1 mg PO TIDP PRN 10/17/19 Aspirin [Aspirin EC 81 MG] 81 mg PO DAILY #90 tablet. 10/19/19 Gabapentin [Neurontin*] 100 mg PO TID PRN #30 cap 10/19/19 Clopidogrel Bisulfate [Plavix*] 1 tab PO DAILY 11/27/19 Furosemide [Lasix*] 20 mg PO DAILY 11/27/19 lisinopriL [Prinivil*] 20 mg PO DAILY 11/27/19 traMADol HCL [Ultram*] 50 mg PO TID PRN #24 tab 12/04/19 - Past Medical/Surgical History Diabetic: Yes -: HTN -: Diabetes mellitus type 2 [id number] -: Lupus -: Rheumatoid arthritis -: CAD -: Depression with anxiety -: Former smoker -: -: Hysterectomy -: Tonsillectomy -: Incision and drainage of thumb Psychosocial/ Personal History: Patient is at home - Family History Mother -: Diabetes, Cancer Notes: uterine cancer Father -: Cancer Notes: cancer of kidney, skin, and lung Brother -: Heart disease, Cancer Notes: Brother 1. "heart problems" Brother 2. cancer - nonhogkin lymphoma Sister -: Cancer Notes: skin cancer - Social History Smoking Status: Former smoker Alcohol use: Yes CD- Drugs: No Caffeine use: Yes Place of Residence: Home Review of Systems General: As per HPI Eyes: Unremarkable ENT: Unremarkable Respiratory: Unremarkable Cardiovascular: Unremarkable Gastrointestinal: Unremarkable Genitourinary: Unremarkable Musculoskeletal: As per HPI Integumentary: As per HPI Neurological: Unremarkable Lymphatics: Unremarkable Physical Examination - Physical Exam General: Alert, In no apparent distress, Oriented x3, Cooperative HEENT: Atraumatic, Normocephalic Neck: Supple Respiratory: Clear to auscultation bilaterally, Normal air movement Cardiovascular: Normal pulses, Regular rate/rhythm Gastrointestinal: Normal bowel sounds, Soft and benign, Non-distended, No tenderness, No masses, No rebound, No guarding Musculoskeletal: No contractures Integumentary: Other (Patient has large 7.5 x 7.5 cm ulcerated erythematous ulcer with failed skin graft to the right lower extremity medially between the ankle and knee.) Neurological: Normal speech, Normal strength at 5/5 x4 extr, Normal tone, Normal affect - Studies Laboratory Data (last 24 hrs) 12/17/19 16:08: PT 12.9 H, INR 1.10, APTT 52.8 H 12/17/19 16:08: Sodium 139, Potassium 3.5, BUN 6 L, Creatinine 0.55, Glucose 121 H 12/17/19 16:08: WBC 12.6 H, Hgb 8.5 L, Hct 24.6 L, Plt Count 260 Assessment and Plan - Plan Impression: 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 Will keep the patient NPO after midnight as the patient will likely require debridement and removal of tori from failed skin graft. Surgery is aware of the patient. But will contact surgery for further recommendation. Infectious disease consulted for further recommendation. Will obtain wound culture, blood culture. Will start IV Levaquin as the patient had prior wound culture positive for Pseudomonas and Klebsiella. Patient will likely require continued IV antibiotic therapy with wound VAC in place. Anticipate discharge in the next 2-3 days with medication and wound VAC at home. Patient will likely require home health and physical therapy at discharge. Will turn the service over to the hospitalist team. I will go over the plan of care with him. Hypertension: Continue with home medication of Norvasc 10 mg daily, metoprolol 100 mg daily, lisinopril 20 mg daily. Further adjust medication appropriately. Diabetes mellitus type 2 [id number]-qznrnoy-tckahyedn: Will monitor Accu-Cheks. Will provide insulin siding scale. Will continue with metformin 1000 mg 1 pill twice daily. GERD: Continue Nexium 40 mg daily. Peripheral vascular disease: Patient had prior studies of mild to moderate disease. Will provide DVT prophylaxis. Depression with anxiety: Continue with Cymbalta 30 mg daily and Klonopin as needed. Discharge Plan: Home Plan to discharge in: 72 Hours - Advance Directives Does patient have a Living Will: No Does patient have a Durable POA for Healthcare: No - Code Status/Comfort Care Code Status Assessed: Yes (Patient is full code) Time Spent Managing Pts Care (In Minutes): 55
[2019-12-17] MEDS ORDERED: VANCOMYCIN/NS 1 gm 1 GM/250 ML BAG IVPB ONE (18:00)
[2019-12-17] MEDS ORDERED: ONDANSETRON 4 MG/2 ML VIAL IV PRN (21:33)
[2019-12-17] MEDS ORDERED: ACETAMINOPHEN 500 MG TAB PO PRN (21:33)
[2019-12-17] MEDS ORDERED: clonazePAM 0.5 MG TAB PO PRN (21:33)
[2019-12-17] MEDS: INSULIN -REGULAR HUMAN 50 UNIT/0.5 ML ML SQ SCH (21:33)
[2019-12-17 22:11] VITALS: BMI 33.7
[2019-12-17] MEDS: Levofloxacin500mg IV 500 MG/100 ML BAG IV SCH (22:50)
[2019-12-18 05:21] LABS: Basophils % 0.7 % (0-1.3); Hematocrit 30.3 % (36.0-45.0); Lymphocytes % 10.5 % (15.3-44.8); MPV 9.4 fL (7.6-11.3); RBC Red Blood Cell Count 3.35 M/uL (3.86-4.86)
[2019-12-18 05:38] LABS: BUN Blood Urea Nitrogen 9 mg/dL (7-18); Bicarbonate 30 mmol/L (21-32); Glucose Level 152 mg/dL (74-106); Potassium 4.4 mmol/L (3.5-5.1); Sodium Level 138 mmol/L (136-145)
[2019-12-18 05:41] LABS: Magnesium 1.1 mg/dL (1.8-2.4)
[2019-12-18] MEDS: PANTOPRAZOLE 40MG TABLET PO SCH (06:24)
[2019-12-18] MEDS ORDERED: Magnesium Sulfate 2gm IVPB 2 G/50 ML BAG IV ONE ×2 (06:30→14:36)
[2019-12-18] MEDS: INSULIN -REGULAR HUMAN 50 UNIT/0.5 ML ML SQ SCH ×4 (07:30→21:00)
[2019-12-18] MEDS: METFORMIN HCL 500 MG TAB PO SCH ×2 (08:00→16:41)
[2019-12-18] MEDS: ENOXAPARIN 40 MG/0.4 ML SQ SCH (08:22)
[2019-12-18] MEDS: FUROSEMIDE 20 MG TABLET PO SCH (08:22)
[2019-12-18] MEDS: DULOXETINE 30 MG CAP PO SCH (08:22)
[2019-12-18] MEDS: METOPROLOL TAR 50 MG TAB PO SCH (08:23)
[2019-12-18] MEDS: AMLODIPINE 10 MG TAB PO SCH (08:24)
[2019-12-18] MEDS: lisinopriL 20 MG TAB PO SCH (08:24)
[2019-12-18] MEDS: HYDROCODONE/APAP 7.5/325 MG TAB PO PRN ×2 (11:13→18:01)
--- NOTE | 2019-12-18 13:15 | P.PN ---
Subjective Date of Service: 12/18/19 Primary Care Provider: OPAL Hercules; Surgery-Dr. Aden Chief Complaint: Failed skin graft Subjective: No new changes Physical Examination - Vital Signs Temperature: 98.3 F Blood Pressure: 150/56 Pulse: 90 Respirations: 18 Pulse Ox (%): 96 - Physical Exam General: Alert, In no apparent distress, Obese HEENT: Atraumatic, PERRLA, EOMI Neck: Supple, JVD not distended Respiratory: Clear to auscultation bilaterally, Normal air movement Cardiovascular: Regular rate/rhythm, Normal S1 S2 Gastrointestinal: Normal bowel sounds, No tenderness Musculoskeletal: No tenderness Integumentary: Rash(es), Skin breakdown, Tenderness/swelling, Erythema (RLE) Neurological: Normal speech, Normal tone, Normal affect Lymphatics: No axilla or inguinal lymphadenopathy - Studies Laboratory Data (last 24 hrs) 12/17/19 16:08: PT 12.9 H, INR 1.10, APTT 52.8 H 12/17/19 16:08: Sodium 139, Potassium 3.5, BUN 6 L, Creatinine 0.55, Glucose 121 H 12/17/19 16:08: WBC 12.6 H, Hgb 8.5 L, Hct 24.6 L, Plt Count 260 Medications List Reviewed: Yes Assessment And Plan - Plan Recurrent cellulitis 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 -Infectious disease on consult for further recommendation. Pending wound culture, blood culture. -Continue IV Levaquin as the patient had prior wound culture positive for Pseudomonas and Klebsiella. Patient will likely require continued IV antibiotic therapy with wound VAC in place. -Resolving leukocytosis Hypertension: Continue with home medication of Norvasc 10 mg daily, metoprolol 100 mg daily, lisinopril 20 mg daily. Further adjust medication appropriately. Diabetes mellitus type 2 [id number]-[id number]: Will monitor Accu-Cheks. Will provide insulin siding scale. Will continue with metformin 1000 mg 1 pill twice daily. GERD: Continue Nexium 40 mg daily. Peripheral vascular disease: Patient had prior studies of mild to moderate disease. Will provide DVT prophylaxis. Depression with anxiety: Continue with Cymbalta 30 mg daily and Klonopin as needed.
--- NOTE | 2019-12-18 14:27 | P.HP ---
Date of Service: 12/18/19 PC: This 69-year-old female presents emergency room with pain and discomfort in her right leg. HPC: Patient has had open wound in that area. She was brought to the operating room bed 10 days ago for a split-thickness skin graft. The graft was in place with a wound VAC. She has developed some surrounding cellulitis to the area. As well as an appears that she has some graft loss. She is having increasing pain and discomfort. 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 No chest pain or palpitations. Has pain when she tries to move this leg due to localized irritation and tenderness, no clinical signs of DVT O/E awake alert stable HEENT: Not jaundiced Chest: Air entry equal bilaterally ABD: Soft LOCO: This open wound measuring approximately 5 inches x 3 0.5 inches has a staple line still in place. It appears that the graft is nonviable at this point. Is starting to slough. However the underlying wound bed is clean with good granulation tissue DATA: White cell count elevated at 12 down to 9 since her hospital stay IMPRESSION: Failed skin graft to the right lower leg PLAN: At the current time we will clean this wound the patient was placed on IV antibiotics. Her white cell count has gone down. The donor site is clean. Will do some local wound care, and see if this could area may need to be Re grafted with perhaps a thicker piece of skin
[2019-12-18] MEDS: Levofloxacin500mg IV 500 MG/100 ML BAG IV SCH (21:24)
[2019-12-18] MEDS ORDERED: MAGNESIUM SULFATE 1 gm IVPB 1 GM/100 ML BAG IV ONE (23:45)
[2019-12-19] MEDS: HYDROCODONE/APAP 7.5/325 MG TAB PO PRN ×3 (01:54→15:58)
[2019-12-19 02:00] LABS: Urine Appearance CLEAR; Urine Bilirubin NEGATIVE (NEG); Urine Blood NEGATIVE (NEG); Urine Color YELLOW; Urine Glucose NEGATIVE (NEG); Urine Protein NEGATIVE (NEG); Urine Specific Gravity <=1.005 (1.005-1.030); Urine Urobilinogen 0.2 mg/dL (0.2-1.0); Urine pH 6.5 (5.0-7.0)
[2019-12-19 02:11] LABS: Urine Microscopic Reflex NO UMIC
[2019-12-19] MEDS: PANTOPRAZOLE 40MG TABLET PO SCH (05:19)
[2019-12-19] MEDS: TRAMADOL HCL 50 MG TAB PO PRN ×2 (05:20→12:11)
[2019-12-19 06:03] LABS: BUN Blood Urea Nitrogen 6 mg/dL (7-18); Bicarbonate 29 mmol/L (21-32); Glucose Level 111 mg/dL (74-106); Magnesium 1.6 mg/dL (1.8-2.4); Potassium 3.8 mmol/L (3.5-5.1); Sodium Level 138 mmol/L (136-145)
[2019-12-19 06:28] LABS: Absolute Lymphocytes (CBC) 1.5 K/uL (0.7-4.9); Basophils % 0.3 % (0-1.3); Hematocrit 29.4 % (36.0-45.0); Lymphocytes % 23.3 % (15.3-44.8); MPV 9.8 fL (7.6-11.3); RBC Red Blood Cell Count 3.21 M/uL (3.86-4.86)
[2019-12-19] MEDS: INSULIN -REGULAR HUMAN 50 UNIT/0.5 ML ML SQ SCH ×3 (07:30→16:30)
[2019-12-19] MEDS ORDERED: MAGNESIUM SULFATE 1 gm IVPB 1 GM/100 ML BAG IV ONE (07:40)
[2019-12-19] MEDS ORDERED: POTASSIUM CL SA 10 MEQ TAB PO ONE ×2 (09:00→13:31)
[2019-12-19] MEDS ORDERED: clonazePAM 1 MG TAB PO PRN (09:27)
[2019-12-19] MEDS ORDERED: cloNIDine HCL 0.1 MG TAB PO PRN (09:27)
[2019-12-19] MEDS: lisinopriL 20 MG TAB PO SCH (09:42)
[2019-12-19] MEDS: ENOXAPARIN 40 MG/0.4 ML SQ SCH (09:42)
[2019-12-19] MEDS: METFORMIN HCL 500 MG TAB PO SCH ×2 (09:43→15:58)
[2019-12-19] MEDS: DULOXETINE 30 MG CAP PO SCH (09:43)
[2019-12-19] MEDS: AMLODIPINE 10 MG TAB PO SCH (09:43)
[2019-12-19] MEDS: FUROSEMIDE 20 MG TABLET PO SCH (09:43)
[2019-12-19] MEDS: METOPROLOL TAR 50 MG TAB PO SCH (09:47)
[2019-12-19 12:01] VITALS: O2SAT 97
--- NOTE | 2019-12-19 12:50 | P.PN ---
Subjective Date of Service: 12/19/19 Primary Care Provider: OPAL Hercules; Surgery-Dr. Aden Chief Complaint: Failed skin graft Remains stable. RLE pain is controlled. Physical Examination - Vital Signs Temperature: 98.2 F Blood Pressure: 170/68 Pulse: 69 Respirations: 18 Pulse Ox (%): 96 - Physical Exam General: Alert, In no apparent distress HEENT: Atraumatic, PERRLA, EOMI Neck: Supple, JVD not distended Respiratory: Clear to auscultation bilaterally, Normal air movement Cardiovascular: Regular rate/rhythm, Normal S1 S2 Gastrointestinal: Normal bowel sounds, No tenderness Musculoskeletal: No tenderness Integumentary: Skin breakdown, Skin lesion Neurological: Normal speech, Normal tone, Normal affect Lymphatics: No axilla or inguinal lymphadenopathy - Studies Microbiology Data (last 24 hrs): 12/17/19 17:20 Wound - Right Lower Leg Gram Stain - Final Medications List Reviewed: Yes Assessment And Plan - Plan 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 -Infectious disease on consult for further recommendation. -Repeat wound culture with pseudomonas sensitive to levaquin. -Continue IV Levaquin. will hold off on picc placement as levaquin oral maybe used, will defer to ID. -Resolved leukocytosis Hypertension: Continue with home medication of Norvasc 10 mg daily, metoprolol 100 mg daily, lisinopril 20 mg daily. -Resume clonidine today. BP was uncontrolled. -monitor closely. Diabetes mellitus type 2 [id number]-tsnxuevvn: Will monitor Accu-Cheks and continue insulin siding scale. -continue with metformin 1000 mg 1 pill twice daily. GERD: Continue Nexium 40 mg daily. Peripheral vascular disease: Patient had prior studies of mild to moderate disease. Will provide DVT prophylaxis. Depression with anxiety: Continue with Cymbalta 30 mg daily and Klonopin as needed. DVT ppx- SCD patient is full code Dispo- possible dc home today or in a.m pending antibiotic finalization & clearance from surgeon. Discharge Plan: Home Plan to discharge in: 24 Hours
[2019-12-19 13:17] LABS: Potassium 3.7 mmol/L (3.5-5.1)
[2019-12-19 13:27] LABS: Magnesium 1.3 mg/dL (1.8-2.4)
[2019-12-19] MEDS ORDERED: Magnesium Sulfate 2gm IVPB 2 G/50 ML BAG IV ONE (13:31)
--- NOTE | 2019-12-19 14:31 | CON ---
History Of Present Illness: This is a 69-year-old female coming in because of recurrent infection to the right leg. Patient is post graft, which was taken from her right thigh region. Patient was nichelle jolene on wound VAC and as per home health and nurse who found that her pain has increased and redness i n the surrounding area with necrotic tissue has also worsened. Past Medical History: Diabetes mellitus, morbid obesity, currently being treated with Levaquin. Allergies: HAS MULTIPLE ALLERGIES INCLUDING SULFA DRUGS, DOXYCYCLINE. Review of Systems: 10-point review was performed. Physical Examination: General: This is a 69-year-old female coming in with right leg cellulitis and ulceration status post graft placement. Patient is growing Pseudomonas aeruginosa, which is sensitive to quinolones. We will recommend to ad d meropenem to the treatment plan as patient's wound has worsened. Total course of antibiotics 3-4 w eeks. Recommend long-term antibiotic and apply Santyl to the wound site. At this time, consider [facility] -term acute care or SNF for antibiotic and wound care management. We will follow the patient pauly reeder Thank you for consult. JOLLY/OLIMPIA Voice ID: [id number] Report ID: [id number]
--- NOTE | 2019-12-19 15:42 | P.PN ---
Date of Service: 12/19/19 S: Patient feels much better today, leg has much less pain and discomfort. O: wound is cleaning up, less erythema surrounding it. Charla have been removed. A: Surgically stable PE: Wound is healed, will be discharged today. She will continue on oral antibiotics. She has been instructed on wound healing. She is going to do wet- to-dry dressings. She will be seen on Sunday in the wound center. At that time we will determine further course of treatment. I think that she will respond well to at this point with a Unna boot or some other type of soft compression cast.
[2019-12-19] MEDS ORDERED: SODIUM HYPOCHLORITE 0.25% 473 ML TOP ONE (15:45)
[2019-12-19] MEDS ORDERED: ACETIC ACID 0.25% IRRIG IRR SCH (16:00)
--- NOTE | 2019-12-19 16:39 | P.DS ---
Admission Date: 12/17/19 Discharge Date: 12/24/19 Primary Care Provider: OPAL Hercules; Surgery-Dr. Aden Disposition: DC HOME/HOME HEALTH CARE Discharge Condition: GOOD Reason for Admission: Failed skin graft Consultations: Dr. Aden Hospital Course: Ms. Gotti is a 69-year-old female with history of diabetes, hypertension, GERD and right lower extremity cellulitis with open wound in the medial aspect of the leg [id number]. Patient was recently hospitalized for cellulitis & infected wound with wound culture positive for Pseudomonas and Klebsiella. She underwent I&D at that time with wound VAC placement. She subsequently underwent a skin graft and was discharged home in a stable condition. She presented back to the hospital on this admission with increasing edema & erythema of the area. Surgery recommended admission for further treatment. She had leukocytosis upon presentation; however, did not require any further intraoperative surgical debridement on this admission. Infectious Disease specialist was consulted and and recommended for IV antibiotics. Wound culture grew Pseudomonas aeruginosa and Enterococcus faecalis, both sensitive to Levaquin. Given sensitivity, IV Levaquin has been switched to oral Levaquin and patient has been advised to follow up with infectious disease and surgery closely. She has been resumed on home medications and remained hemodynamically stable for discharge. Vital Signs/Physical Exam: Temp Pulse Resp BP Pulse Ox 98.2 F 69 18 170/68 H 96 12/19/19 12:51 12/19/19 12:51 12/19/19 12:51 12/19/19 12:51 12/19/19 12:51 Laboratory Data at Discharge: WBC 6.5 K/uL (4.3-10.9) D 12/19/19 05:24 Hgb 10.1 g/dL (12.0-15.0) L 12/19/19 05:24 Hct 29.4 % (36.0-45.0) L 12/19/19 05:24 Plt Count 190 K/uL (152-406) 12/19/19 05:24 PT 12.9 SECONDS (9.5-12.5) H 12/17/19 16:08 INR 1.10 12/17/19 16:08 APTT 52.8 SECONDS (24.3-36.9) H 12/17/19 16:08 Sodium 138 mmol/L (136-145) 12/19/19 05:24 Potassium 3.7 mmol/L (3.5-5.1) 12/19/19 12:42 BUN 6 mg/dL (7-18) L 12/19/19 05:24 Creatinine 0.52 mg/dL (0.55-1.3) L 12/19/19 05:24 Glucose 111 mg/dL (74-106) H 12/19/19 05:24 Magnesium 1.3 mg/dL (1.8-2.4) L* 12/19/19 12:42 Home Medications: Amlodipine [Norvasc*] 10 mg PO DAILY 12/17/19 Clonidine HCl [Catapres] 0.1 mg PO PRN PRN 12/17/19 Duloxetine HCl [Cymbalta] 30 mg PO DAILY 12/17/19 Furosemide [Lasix*] 20 mg PO DAILY 12/17/19 Lisinopril [Zestril] 20 mg PO DAILY 12/17/19 Melatonin 10 mg PO BEDTIME 12/17/19 Metformin HCl 1,000 mg PO BID 12/17/19 Metoprolol Tartrate [Lopressor] 100 mg PO DAILY 12/17/19 clonazePAM [Klonopin*] 1 mg PO TIDP PRN 12/17/19 Lactobacillus Acidophilus [Probiotic Acidophilus] 1 each PO TID #90 tablet 12/19 levoFLOXacin [Levaquin] 500 mg PO DAILY #30 tab 12/19/19 New Medications: Lactobacillus Acidophilus [Probiotic Acidophilus] 1 each PO TID #90 tablet levoFLOXacin [Levaquin] 500 mg PO DAILY #30 tab Patient Discharge Instructions: Return to ER if any red streaks develops in the extremity. Diet: ADA Activity: Fall precautions Followup: Aubrey Aden MD [ACTIVE - CAN ADMIT] - 1 Week Donell Norton MD [ACTIVE - CAN ADMIT] - 1 Week Dudley Valero MD [Primary Care Provider] - 1 Week
[2019-12-19 17:17] VITALS: BP 146/79; TEMP 99.5
[2019-12-19] MEDS ORDERED: MELATONIN 5 MG TABLET PO SCH (21:00)
[2019-12-20] MEDS ORDERED: AMLODIPINE 10 MG TAB PO SCH (09:00)
[2019-12-20] MEDS ORDERED: HOME MED 1 EA UNK (Metoprolol Tartrate [Lopressor] 100 MG) PO SCH (09:00)
[2019-12-20] MEDS ORDERED: DULOXETINE 30 MG CAP PO SCH (09:00)
[2019-12-20] MEDS ORDERED: lisinopriL 20 MG TAB PO SCH (09:00)
[2019-12-20] MEDS ORDERED: COLLAGENASE 30 GM OINTMENT TOP SCH (09:00)
== END 2019-12-19 18:03 | disposition home health service (06) | DRG 920 ==
LOC: ER 14:52 → ERHOLD 17:33 → 2ND 20:58
PROVIDERS: ADMIT Family Medicine; ATTEND Hospitalist
DX: T86.821 Skin graft (allograft) (autograft) failure (principal); L03.115 Cellulitis of right lower limb; E11.9 Type 2 diabetes mellitus without complications; I10 Essential (primary) hypertension; K21.9 Gastro-esophageal reflux disease without esophagitis; F41.8 Other specified anxiety disorders; I73.9 Peripheral vascular disease, unspecified; M32.9 Systemic lupus erythematosus, unspecified; M06.9 Rheumatoid arthritis, unspecified; I25.10 Atherosclerotic heart disease of native coronary artery without angina pectoris
CPT/HCPCS: 36415; 80048; 81003; 82947; 83735; 84132; 84145; 85025; 85610; 85730; 87040; 87070; 87077; 87186; 87205; 96365; 96375; 99251; 99285; J1650; J2405; J3370; J3475

== ENCOUNTER 2020-01-20 22:56 | Observation (INO) | payer OTHER ==
[2020-01-20] MEDS ORDERED: lisinopriL 20 MG TAB ONE (23:16)
[2020-01-20] MEDS ORDERED: HYDRALAZINE HCL 20 MG/ML VIAL ONE (23:16)
[2020-01-20] MEDS ORDERED: MORPHINE 2 MG/ML SYR ONE (23:18)
[2020-01-20 23:32] LABS: Absolute Lymphocytes (CBC) 2.8 K/uL (0.7-4.9); Basophils % 0.7 % (0-1.3); Hematocrit 35.6 % (36.0-45.0); Lymphocytes % 41.8 % (15.3-44.8); MPV 8.6 fL (7.6-11.3); RBC Red Blood Cell Count 3.83 M/uL (3.86-4.86)
[2020-01-21 00:15] LABS: BUN Blood Urea Nitrogen 4 mg/dL (7-18); Bicarbonate 25 mmol/L (21-32); Glucose Level 175 mg/dL (74-106); Potassium 3.2 mmol/L (3.5-5.1); Sodium Level 127 mmol/L (136-145)
[2020-01-21] MEDS ORDERED: propofoL 200 MG/20 ML VIAL IV ONE (00:49)
[2020-01-21] MEDS ORDERED: NA CHLORIDE 0.9% 1,000 ML ONE (00:53)
[2020-01-21] MEDS ORDERED: MORPHINE 2 MG/ML SYR ONE ×2 (01:19→02:16)
[2020-01-21] MEDS ORDERED: MEPERIDINE HCL 25 MG/0.5 ML ONE (01:32)
[2020-01-21] MEDS ORDERED: MORPHINE 4 MG/ML SYR ONE (03:26)
[2020-01-21] MEDS ORDERED: ASPIRIN 81 MG CHEWABLE TABLET ONE (03:26)
[2020-01-21] MEDS ORDERED: ONDANSETRON 4 MG/2 ML VIAL ONE (03:27)
--- NOTE | 2020-01-21 03:32 | ER ---
Nurse's Notes [facility] Name: Bridgett Gotti Age: 69 yrs Sex: Female : 1950 Arrival Date: 01/20/2020 Time: 22:58 Bed 7 Private MD: Diagnosis: Unspecified dislocation of left shoulder joint;Fall on same level from slipping, tripping and stumbling;Cerebral stugxucwqf-kly-bgtcimxhomciq right basal ganglia;Alcohol abuse with intoxication Presentation: 01/20 22:43 Acuity: LASHONDA 2 22:43 Presenting complaint: EMS states: that pt was walking out of a restaurant and tripped. fc Pt is complaining of left shoulder and arm pain. Pt has been drinking - at least a 6 pack. Denies hitting head or having any LOC. Care prior to arrival: None. Mechanism of Injury: Fall from standing position. Trauma event details: Injury occurred in the [facility], Injury occurred: parking lot Injury occurred: January 20, 2020. 22:43 Method Of Arrival: EMS: [facility] 22:43 Transition of care: patient was not received from another setting of care. Onset of fc symptoms was January 20, 2020. Risk Assessment: Do you want to hurt yourself or someone else? Patient reports no desire to harm self or others. Initial Sepsis Screen: Does the patient meet any 2 criteria? No. Patient's initial sepsis screen is negative. Does the patient have a suspected source of infection? No. Patient's initial sepsis screen is negative. Historical: - Allergies: 23:16 Bactrim; fc 23:16 Sulfa (Sulfonamide Antibiotics); fc 23:16 Doxycycline; fc - Home Meds: 23:16 metformin 1,000 mg Oral tab 1 tab 2 times per day [Active]; lisinopril 20 mg Oral tab 1 fc tab once daily [Active]; Lactobacillus acidophilus oral cap daily [Active]; Klonopin 1 mg Oral tab 1 tab tid prn for PRN for anxiety [Active]; metoprolol tartrate 100 mg Oral tab 1 tab once daily [Active]; melatonin 10 mg Oral tab nightly [Active]; Lasix 20 mg Oral tab 1 tab once daily [Active]; - PMHx: 23:16 Diabetes - NIDDM; Lupus; Hypertension; Rheumatoid Arthritis; Enteritis; Back pain; fc Depression; Sleep Apnea; - PSHx: 23:16 right leg skin graft; fc - Immunization history: Last tetanus immunization: unknown. - Coronavirus screen:: The patient has NOT traveled to [place] in the past 14 days. The patient has NOT had contact with known/suspected case of Coronavirus?. - Social history:: Smoking status: Patient denies any tobacco usage or history of. Patient uses alcohol, occasionally. Patient/guardian denies using street drugs. - Ebola Screening: : Patient negative for fever greater than or equal to 101.5 degrees Fahrenheit, and additional compatible Ebola Virus Disease symptoms Patient denies exposure to infectious person Patient denies travel to an Ebola-affected area in the 21 days before illness onset. Screenin:43 Abuse screen: Denies threats or abuse. Tuberculosis screening: No symptoms or risk fc factors identified. 23:10 Nutritional screening: No deficits noted. fc 01/21 03:00 The patient has not been NPO before screening. The patient is alert, able to follow sg commands. The patient does not exhibit slurred or garbled speech The patient is not exhibiting difficulty speaking. The patient does not exhibit difficulty understanding words. The patient is able to swallow own secretions with no drooling or need for suction. Patient tolerated one teaspoon of water. No drooling, immediate coughing, gurgling, or clearing of the throat was noted. The patient tolerated 90mL of water. No drooling, immediate coughing, gurgling, or clearing of the throat was noted. The patient passed the bedside swallow screening. Oral medications may be given as ordered. Contact Physician for further diet orders. Primary Survey: 01/20 22:45 NO uncontrolled hemorrhage observed. A: The patient is alert. Airway: patent, No sg supplemental oxygen in use on arrival. Trachea midline. Breathing/Chest: Respiratory pattern: regular, Respiratory effort: spontaneous, unlabored, Breath sounds: clear, Chest inspection: symmetrical rise and fall of the chest. Circulation: Heart tones present. Pulses: palpable right radial artery and left radial artery. Skin color: pink, Skin temperature: warm, dry. Disability Alert. Exposure/Environment: All clothing and personal items were removed. Forensic evidence collection is not deemed to be indicated at this time. Items placed in patient belonging bag. There is no evidence of uncontrolled external bleeding. Obvious injury(ies) are noted at this time: left shoulder, abrasion to chin A warming method has been applied: A warm blanket has been provided to the patient. 23:00 Reassessment Airway Airway Breathing/Chest Circulation Heart tones Present Pulses sg Palpable Color [place] Temperature Warm Dry Disability Alert. Secondary Survey: 22:45 HEENT: Head No injury/deformity Face Other abraison noted to chin, is dirty, no active sg bleeding noted at this time, has been cleaned with Saline solution at this time Eyes: No injury or deformity noted. Ears: clear Nose: clear Throat: No injury or deformity noted. Gastrointestinal: Abdomen is soft, non-distended, Palpation No deficit noted. : No signs and/or symptoms were reported regarding the genitourinary system. Musculoskeletal: Circulation, motion, and sensation intact. Range of motion: limited in left shoulder Reports pain in anterior aspect of left shoulder. Assessment: 22:40 General: Appears in no apparent distress. well groomed, well developed, well nourished, sg Behavior is calm, cooperative, appropriate for age. Neuro: Level of Consciousness is awake, obeys commands, confused, Oriented to person, time, situation, Speech is slurred, Facial symmetry appears normal, Reports " I drank about a six pack, probably". Cardiovascular: Patient's skin is warm and dry. Chest pain is denied. Respiratory: Airway is patent Respiratory effort is even, unlabored, Respiratory pattern is regular, symmetrical. GI: Abdomen is round non-distended, Bowel sounds present X 4 quads. : No signs and/or symptoms were reported regarding the genitourinary system. EENT: No signs and/or symptoms were reported regarding the EENT system. Derm: Skin is pink, warm \\T\\ dry. Musculoskeletal: Circulation, motion, and sensation intact. Range of motion: intact in all extremities. 23:24 Reassessment: Patient appears in no apparent distress at this time. sg 23:30 Reassessment: pt removed C-Collar at this time. sg 01/21 01:30 Reassessment: verbal order received per to administer Demerol 25 IVP to pt sg prior to repeat CT scan. 07:43 Reassessment: Report called to ILAN Torres. hb Vital Signs: 01/20 22:43 BP 187 / 136; Pulse 87; Resp 18; Temp 97.7(O); Pulse Ox 98% on R/A; Weight 83.91 kg fc (R); Height 5 ft. 2 in. (157.48 cm) (R); Pain 7/10; 23:23 BP 188 / 89; Pulse 90; Resp 18; Temp 97.7; Pulse Ox 100% on R/A; sg 01/21 00:00 BP 166 / 80; Pulse 96; Resp 17; Pulse Ox 98% on R/A; sg 02:00 BP 212 / 100; Pulse 116; Resp 17; Pulse Ox 100% on R/A; sg 04:19 BP 152 / 83; Pulse 102; Resp 16; Temp 97.7; Pulse Ox 96% on R/A; Pain 3/10; sg 04:57 BP 175 / 98; Pulse 112 MON; Resp 18 S; Pulse Ox 95% on R/A; sg 07:15 BP 167 / 97; Pulse 104; Resp 20; Temp 97.9; Pulse Ox 99% on R/A; ph 01/20 22:43 Body Mass Index 33.84 (83.91 kg, 157.48 cm) Hussein Coma Score: 01/20 22:43 Eye Response: spontaneous(4). Verbal Response: confused(4). Motor Response: obeys fc commands(6). Total: 14. Trauma Score (Adult): 22:43 Eye Response: spontaneous(1); Verbal Response: confused(1); Motor Response: obeys fc commands(2); Systolic BP: > 89 mm Hg(4); Respiratory Rate: 10 to 29 per min(4); Hussein Score: 14; Trauma Score: 12 ED Course: 22:43 Patient has correct armband on for positive identification. Bed in low position. Call fc light in reach. Side rails up X2. 22:43 Arm band placed on Patient placed in an exam room, on a stretcher. fc 22:43 Patient maintains SpO2 saturation greater than 95% on room air. fc 22:43 Thermoregulation: warm blanket given to patient. sg 22:58 Patient arrived in ED. fc 22:58 Andres Bell PA is PHCP. cp 22:58 Zhao Madera MD is Attending Physician. cp 23:06 Triage completed. fc 23:09 Mateo Mckinney, ILAN is Primary Nurse. sg 23:11 No provider procedures requiring assistance completed. fc 23:21 Inserted saline lock: 20 gauge in right antecubital area, using aseptic technique. mt Blood collected. by [employer] Equipment [employer]aire[employer] student. 01/21 00:49 CT Head C Spine In Process Unspecified. EDMS 00:54 Consent for conscious sedation explained by physician, signed by patient. sg 01:[address] Scan. sg 02:18 CT Chest, Abdomen, Pelvis - W/Contrast In Process Unspecified. EDMS 03:22 Francisco J Del Cid MD is Hospitalizing Provider. cp 04:00 Patient admitted, IV remains in place. intact, No redness/swelling at site. sg 04:01 XRAY Humerus LEFT In Process Unspecified. EDMS Administered Medications: 01/20 23:20 Drug: morphine 2 mg Route: IVP; Site: right antecubital; sg 01/21 01:17 Drug: morphine 2 mg Route: IVP; Site: right antecubital; sg 01:30 Drug: Demerol 25 mg Route: IVP; Site: right antecubital; sg 01:30 Follow up: Response: No adverse reaction sg 01:55 Drug: Propofol 1 mg/kg Route: IVP; Site: right antecubital; sg 03:28 Drug: Zofran 4 mg Route: IVP; Site: right antecubital; jb4 04:35 Follow up: Response: No adverse reaction sg 03:30 Drug: morphine 4 mg {Note: rass score 0.} Route: IVP; Site: right antecubital; jb4 04:35 Follow up: Response: No adverse reaction; Pain is decreased sg 03:31 Drug: Aspirin Chewable Tablet 324 mg Route: PO; jb4 04:35 Follow up: Response: No adverse reaction sg 04:34 Not Given (Hemodynamic Parameters): Lisinopril 20 mg PO once sg 04:34 Not Given (Hemodynamic Parameters): hydrALAZINE 10 mg IV at calculated rate once sg Intake: 03:30 IV: 200ml (IV Fluid); Total: 200ml. sg Outcome: 03:30 Decision to Hospitalize by Provider. cp 03:30 Admitted to ER Hold. Please see [facility] for further documentation. sg 03:30 Condition: good 03:30 Patient's length of stay in the Emergency Department was greater than 2 hours. Patient's length of stay was extended due to staffing issues within the emergency department. 08:03 Patient left the ED. ph Signatures: Dispatcher [employer] EDMS Mateo Mckinney, RN RN Treva Fair, RN RN Mildred Jon RN RN Andres Ramon PA PA cp Baxter, Heather, RN RN Aubrey Napier RN RN jbStu Carbajal [facility]
--- NOTE | 2020-01-21 03:33 | EDPHYS ---
Physician Documentation [facility] Name: Bridgett Gotti Age: 69 yrs Sex: Female : 1950 Arrival Date: 01/20/2020 Time: 22:58 Bed 7 Private MD: ED Physician Zhao Madera HPI: 01/20 23:27 This 69 yrs old Female presents to ER via EMS with complaints of Fall Injury. cp 23:27 Details of fall: The patient fell from an upright position, while walking, and struck a cp concrete surface. Onset: The symptoms/episode began/occurred just prior to arrival. Associated injuries: The patient sustained left upper arm, painful injury. Severity of symptoms: in the emergency department the symptoms are unchanged, despite EMS interventions. Patient admits to drinking 6 pack of beer this evening. 23:27 Patient reports trip and fall while walking out or restaurant tonight. cp Historical: - Allergies: 23:16 Bactrim; fc 23:16 Sulfa (Sulfonamide Antibiotics); fc 23:16 Doxycycline; fc - Home Meds: 23:16 metformin 1,000 mg Oral tab 1 tab 2 times per day [Active]; lisinopril 20 mg Oral tab 1 fc tab once daily [Active]; Lactobacillus acidophilus oral cap daily [Active]; Klonopin 1 mg Oral tab 1 tab tid prn for PRN for anxiety [Active]; metoprolol tartrate 100 mg Oral tab 1 tab once daily [Active]; melatonin 10 mg Oral tab nightly [Active]; Lasix 20 mg Oral tab 1 tab once daily [Active]; - PMHx: 23:16 Diabetes - NIDDM; Lupus; Hypertension; Rheumatoid Arthritis; Enteritis; Back pain; fc Depression; Sleep Apnea; - PSHx: 23:16 right leg skin graft; fc - Immunization history: Last tetanus immunization: unknown. - Coronavirus screen:: The patient has NOT traveled to [place] in the past 14 days. The patient has NOT had contact with known/suspected case of Coronavirus?. - Social history:: Smoking status: Patient denies any tobacco usage or history of. Patient uses alcohol, occasionally. Patient/guardian denies using street drugs. - Ebola Screening: : Patient negative for fever greater than or equal to 101.5 degrees Fahrenheit, and additional compatible Ebola Virus Disease symptoms Patient denies exposure to infectious person Patient denies travel to an Ebola-affected area in the 21 days before illness onset. ROS: 23:35 Constitutional: Negative for body aches, chills, fever, poor PO intake. cp 23:35 Eyes: Negative for injury, pain, redness, and discharge. cp 23:35 ENT: Negative for drainage from ear(s), ear pain, sore throat, difficulty swallowing, difficulty handling secretions. 23:35 Cardiovascular: Negative for chest pain, palpitations. 23:35 Respiratory: Negative for cough, shortness of breath, wheezing. 23:35 Abdomen/GI: Negative for abdominal pain, vomiting, diarrhea, constipation. 23:35 Back: Negative for pain at rest, pain with movement. 23:35 MS/extremity: Positive for injury or acute deformity, decreased range of motion, pain, swelling, tenderness, of the left shoulder, Negative for paresthesias. 23:35 Skin: Negative for rash. 23:35 Neuro: Negative for altered mental status, headache, loss of consciousness, syncope. 23:35 All other systems are negative. Exam: 23:40 Constitutional: The patient appears in no acute distress, alert, awake, cp non-diaphoretic, non-toxic, well developed, well nourished. 23:40 Head/Face: Normocephalic, atraumatic. cp 23:40 Eyes: Periorbital structures: appear normal, Pupils: equal, round, and reactive to light and accomodation, Extraocular movements: intact throughout, Conjunctiva: normal, no exudate, no injection, Lids and lashes: appear normal, bilaterally. 23:40 ENT: External ear(s): are unremarkable, Ear canal(s): are normal, clear, TM's: dullness, bilaterally, Nose: is normal, Mouth: Lips: moist, Oral mucosa: moist, Posterior pharynx: Airway: no evidence of obstruction, patent. 23:40 Neck: C-spine: C-collar placed in ED, vertebral tenderness, is not appreciated, crepitus, is not appreciated. 23:40 Chest/axilla: Inspection: normal, Palpation: is normal, no crepitus, no tenderness. 23:40 Cardiovascular: Rate: normal, Rhythm: regular, Pulses: Pulses are 2+ in right radial artery, right dorsalis pedis artery, left radial artery and left dorsalis pedis artery. Edema: is not appreciated, JVD: is not appreciated. 23:40 Respiratory: the patient does not display signs of respiratory distress, Respirations: normal, no use of accessory muscles, no retractions, labored breathing, is not present, Breath sounds: are clear throughout, no decreased breath sounds. 23:40 Abdomen/GI: Inspection: abdomen appears normal, Bowel sounds: active, all quadrants, Palpation: abdomen is soft and non-tender, in all quadrants, rebound tenderness, is not appreciated. 23:40 Musculoskeletal/extremity: Joints: All joints are normal except the left shoulder displays limited range of motion, pain at rest, painful range of motion, swelling, tenderness. 23:40 Neuro: Orientation: to person, place \T\ time. Mentation: lucid, able to follow commands, Motor: moves all fours, strength is normal, Sensation: no obvious gross deficits. 01/21 03:10 ECG was reviewed by the Attending Physician. cp Vital Signs: 01/20 22:43 BP 187 / 136; Pulse 87; Resp 18; Temp 97.7(O); Pulse Ox 98% on R/A; Weight 83.91 kg fc (R); Height 5 ft. 2 in. (157.48 cm) (R); Pain 7/10; 23:23 BP 188 / 89; Pulse 90; Resp 18; Temp 97.7; Pulse Ox 100% on R/A; sg 01/21 00:00 BP 166 / 80; Pulse 96; Resp 17; Pulse Ox 98% on R/A; sg 02:00 BP 212 / 100; Pulse 116; Resp 17; Pulse Ox 100% on R/A; sg 04:19 BP 152 / 83; Pulse 102; Resp 16; Temp 97.7; Pulse Ox 96% on R/A; Pain 3/10; sg 04:57 BP 175 / 98; Pulse 112 MON; Resp 18 S; Pulse Ox 95% on R/A; sg 07:15 BP 167 / 97; Pulse 104; Resp 20; Temp 97.9; Pulse Ox 99% on R/A; ph 01/20 22:43 Body Mass Index 33.84 (83.91 kg, 157.48 cm) fc Hussein Coma Score: 01/20 22:43 Eye Response: spontaneous(4). Verbal Response: confused(4). Motor Response: obeys fc commands(6). Total: 14. Trauma Score (Adult): 22:43 Eye Response: spontaneous(1); Verbal Response: confused(1); Motor Response: obeys fc commands(2); Systolic BP: > 89 mm Hg(4); Respiratory Rate: 10 to 29 per min(4); Hussein Score: 14; Trauma Score: 12 Procedures: 01/21 03:37 Reduction: of the left shoulder, using traction, manipulation, Immobilized with rn shoulder immobilizer. Patient tolerated well. Post reduction film - reveals normal alignment. 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 MDM: 01/20 23:06 Patient medically screened. 01/21 03:30 Data reviewed: vital signs, nurses notes, lab test result(s), EKG, radiologic studies, CT scan, plain films, I have discussed the patient's presentation/case with the attending Emergency Department Physician; and as a result, I will admit patient. 03:30 Physician consultation: Francisco J Del Cid MD was called at 03:25, was contacted at 03:25, regarding admission, to the telemetry unit. patient's condition. 01/20 23:07 Order name: Basic Metabolic Panel; Complete Time: 00:27 01/21 01:16 Interpretation: Normal except: NA 127; K 3.2; CL 95; GLUC 175; BUN 4; CA 7.9. 01/20 23:07 Order name: CBC with Diff; Complete Time: 00:27 01/21 00:28 Interpretation: Normal except: RBC 3.83; HGB 11.7; HCT 35.6. 01/20 23:07 Order name: Creatinine for Radiology; Complete Time: 00:27 01/20 23:07 Order name: Type And Screen; Complete Time: 02:55 01/21 01:19 Order name: ETOH Level; Complete Time: 03:06 cp 01/21 04:48 Order name: Liver (Hepatic) Function EDMS 01/20 23:07 Order name: CT Head C Spine cp 01/20 23:07 Order name: XRAY Chest (1 view) cp 01/20 23:07 Order name: XRAY Humerus LEFT cp 01/21 01:18 Order name: CT Chest, Abdomen, Pelvis - W/Contrast 01/21 02:30 Order name: Shoulder (1 View) XRAY fc 01/21 04:48 Order name: CBC with Automated Diff EDMS 01/21 04:48 Order name: Comprehensive Metabolic Panel EDMS 01/21 04:48 Order name: Alcohol Serum/Plasma EDMS 01/20 23:07 Order name: Labs collected and sent; Complete Time: 23:22 cp 01/21 00:34 Order name: Conscious Sedation; Complete Time: 00:54 sg 01/21 02:30 Order name: XRAY Shoulder LEFT 2 view 01/21 02:31 Order name: EKG; Complete Time: 02:32 cp 01/21 02:31 Order name: EKG - Nurse/Tech; Complete Time: 03:42 cp 01/21 04:46 Order name: NPO EDMS 01/21 07:42 Order name: RAD EDMS 01/21 07:50 Order name: RAD EDMS EC:10 Rate is 102 beats/min. Rhythm is regular. WA interval is normal. QRS interval is cp prolonged at 138 msec. QT interval is normal. T waves are Inverted in leads V1, V2. Interpreted by me. Reviewed by me. Administered Medications: 01/20 23:20 Drug: morphine 2 mg Route: IVP; Site: right antecubital; sg 01/21 01:17 Drug: morphine 2 mg Route: IVP; Site: right antecubital; sg 01:30 Drug: Demerol 25 mg Route: IVP; Site: right antecubital; sg 01:30 Follow up: Response: No adverse reaction sg 01:55 Drug: Propofol 1 mg/kg Route: IVP; Site: right antecubital; sg 03:28 Drug: Zofran 4 mg Route: IVP; Site: right antecubital; jb4 04:35 Follow up: Response: No adverse reaction sg 03:30 Drug: morphine 4 mg {Note: rass score 0.} Route: IVP; Site: right antecubital; jb4 04:35 Follow up: Response: No adverse reaction; Pain is decreased sg 03:31 Drug: Aspirin Chewable Tablet 324 mg Route: PO; jb4 04:35 Follow up: Response: No adverse reaction sg 04:34 Not Given (Hemodynamic Parameters): Lisinopril 20 mg PO once sg 04:34 Not Given (Hemodynamic Parameters): hydrALAZINE 10 mg IV at calculated rate once sg Disposition: 20:46 Co-signature as Attending Physician, Zhao Madera MD. rn Disposition: 01/21/20 03:30 Hospitalization ordered by Francisco J Del Cid for Observation. 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 - Bed requested for Telemetry/MedSurg (observation). - Status is Observation. ph - Condition is Stable. - Problem is new. - Symptoms have improved. Signatures: Dispatcher [employer] EDMS Devika Peter RN RN dw Mateo Mckinney RN RN sg Treva Calderon RN Zhao Chery MD MD rn Lasagna, Tonya RN RN tl1 Mildred Dhillon RN Anders Grande ph, PA PA cp Bryson, James, RN RN jb4 Corrections: (The following items were deleted from the chart) 01:16 00:27 Normal except: NA 127; K 3.2; CL 95; GLUC 175; BUN 4. cp cp 04:51 03:30 Hospitalization Ordered by Francisco J Del Cid MD for Observation. 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 Bed requested for Telemetry/MedSurg (observation). Status is Observation. Condition is Stable. Problem is new. Symptoms have improved. cp 05:58 04:51 01/21/2020 03:30 Hospitalization Ordered by Francisco J Del Cid MD for Observation. 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 Bed requested for [facility] ER HOLD. Status is Observation. Condition is Stable. Problem is new. Symptoms have improved. dw 08:03 05:58 01/21/2020 03:30 Hospitalization Ordered by Francisco J Del Cid MD for Observation. 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 Bed requested for Telemetry/MedSurg (observation). Status is Observation. Condition is Stable. Problem is new. Symptoms have improved. tl1
[2020-01-21] MEDS ORDERED: ACETAMINOPHEN 500 MG TAB PO PRN (04:41)
[2020-01-21] MEDS ORDERED: HYDROMORPHONE HCL 1 MG/ML INJ IV PRN (04:41)
[2020-01-21] MEDS ORDERED: ONDANSETRON 4 MG/2 ML VIAL IV PRN (04:41)
[2020-01-21] MEDS: NA CHLORIDE 0.9% 1,000 ML IV SCH ×2 (05:00→09:10)
[2020-01-21 05:20] VITALS: BMI 33.8
[2020-01-21 05:31] LABS: Albumin 2.8 g/dL (3.4-5.0); Bilirubin Direct 0.1 mg/dL (0-0.2); Bilirubin Total 0.4 mg/dL (0.2-1.0); Protein, Total 7.4 g/dL (6.4-8.2)
[2020-01-21] MEDS ORDERED: HYDROMORPHONE HCL 1 MG/ML INJ ONE (06:59)
[2020-01-21] MEDS ORDERED: clonazePAM 1 MG TAB PO PRN (07:21)
--- NOTE | 2020-01-21 07:39 | RAD REPORT ---
EXAM DESCRIPTION: RAD - Humerus Left - 01/21/2020 4:01 am CLINICAL HISTORY: fall;Pain COMPARISON: Shoulder 1 View dated 01/21/2020; Chest Abdomen Pelvis W Cont dated 01/21/2020 FINDINGS: Anterior dislocation of the left femoral head present. AC joint is unremarkable. 10-12 mm sized fracture fragment is present. Origin is difficult to determine from this examination. The gleno id appears to be intact. Fracture fragment is probably from the greater tuberosity of the humerus. Sh aft and distal left humerus are intact. Limited assessment shows no gross elbow joint abnormality. Soft tissue swelling present around the left shoulder joint. IMPRESSION: Left humerus anterior dislocation with 10-12 mm sized fracture fragment probably from th e greater tuberosity. The fracture fragment remains in proximity to the bony glenoid. No AC joint abnormality seen.
--- NOTE | 2020-01-21 07:40 | RAD REPORT ---
EXAM DESCRIPTION: RAD - Chest Single View - 01/21/2020 5:06 am CLINICAL HISTORY: fall, chest pain, left shoulder pain COMPARISON: Chest Single View dated 11/27/2019; Chest Single View dated 05/04/2017 TECHNIQUE: AP portable chest image was obtained 01/21/2020 5:06 am . FINDINGS: No contusion, infiltrate or acute lung parenchymal finding. Interstitial pattern matches c omparison. Cardiac silhouette is enlarged but stable. Mediastinum is accentuated by rotation. No shwetha s change from comparison. No measurable pleural effusion and no pneumothorax. Old right clavicle fracture is present. Left AC joint is intact. Anterior dislocation of the left hum eral head is present. Small crescent-shaped 10-12 mm fracture fragment is present adjacent to the bon y glenoid. This is probably from the humeral greater tuberosity. No acute aortic findings suspected. IMPRESSION: No acute cardiopulmonary finding. Cardiomegaly and widening mediastinum match comparison . Anterior dislocation of the left humerus with small fracture fragment.
--- NOTE | 2020-01-21 07:49 | RAD REPORT ---
EXAM DESCRIPTION: RAD - Shoulder 1 View - 01/21/2020 5:03 am FINDINGS: Single portable image obtained labeled post reduction. Humeral head has been reduced to anatomic position. Previously detailed fracture fragment is obscured by overlying bony structures. No AC joint abnormality.
[2020-01-21] MEDS ORDERED: INFLUENZA VACCINE (for 3y+) 0.5 ML DOSE IMVAC ONE (08:00)
[2020-01-21] MEDS ORDERED: PNEUMOCOCCAL VACCINE 0.5 ML IMVAC ONE (08:00)
--- NOTE | 2020-01-21 08:15 | EKG ---
Test Date: 2020-01-21 Test Time: 03:04:09 [place] Floor Installer: SWG MEASUREMENT RESULTS: Intervals: Rate: 102 AK: 184 QRSD: 138 QT: 402 QTc: 523 [place]: P: AK: 184 QRS: -77 T: 77 INTERPRETIVE STATEMENTS: Sinus tachycardia Left axis deviation Right bundle branch block Abnormal ECG Compared to ECG 12/01/2019 15:13:16 Left-axis deviation now present Sinus rhythm no longer present First degree AV block no longer present Electronically Signed On 01-21-20 08:15:33 ADJUDICATION SPECIALIST by Jose Antonio Lentz
[2020-01-21 08:30] VITALS: TEMP 97.9; O2SAT 99
[2020-01-21] MEDS ORDERED: DULOXETINE 30 MG CAP PO SCH (09:00)
[2020-01-21] MEDS ORDERED: METOPROLOL TAR 50 MG TAB PO SCH (09:00)
--- NOTE | 2020-01-21 09:53 | P.PN ---
Subjective Date of Service: 01/21/20 Primary Care Provider: Dr. Valero Chief Complaint: Mechanical fall Subjective: Improving (Patient admits to falling in a parking lot. Patient admits to also drinking alcohol. Patient feels better. Left shoulder was reduced in the ER.) Physical Examination - Vital Signs Temperature: 97.9 F Blood Pressure: 194/93 Pulse: 114 Respirations: 19 Pulse Ox (%): 95 - Physical Exam General: Alert, In no apparent distress, Oriented x3, Cooperative HEENT: Atraumatic, Other (Dry mucous membranes) Neck: Supple Respiratory: Clear to auscultation bilaterally, Normal air movement Cardiovascular: Abnormal pulses (Sinus tachycardia) Gastrointestinal: Normal bowel sounds, No tenderness, No masses, No rebound, No guarding Musculoskeletal: No warmth, Other (Minimal tenderness to the left shoulder) Neurological: Normal speech, Normal strength at 5/5 x4 extr, Normal tone, Normal affect - Studies Laboratory Data (last 24 hrs) 01/21/20 02:00: Total Bilirubin 0.4, AST 29, ALT 17, Alkaline Phosphatase 107 01/20/20 23:18: Creatinine 0.57 01/20/20 23:18: WBC 6.7, Hgb 11.7 L, Hct 35.6 L, Plt Count 204 01/20/20 23:18: Sodium 127 L, Potassium 3.2 L, BUN 4 L, Creatinine 0.60, Glucose 175 H Medications List Reviewed: Yes Assessment & Plan Discharge Plan: Home Plan to discharge in: 24 Hours Physician Review Additional Text: Impression: Mechanical fall with left humerus anterior dislocation with fracture likely to the greater tuberosity, status post reduction Hyponatremia with mild dehydration Alcohol abuse Hypertension 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 Will continue with sling. Will consult Orthopedics for further recommendation. Likely no need for intervention. Will have physical therapy occupational therapy evaluate ambulation. Fall precautions in place. Possible discharge within the next 24 hr with clinical improvement and better mobility. Hyponatremia with mild dehydration: Continue with IV fluid hydration. Will recheck lab later today. Alcohol abuse: Alcohol cessation addressed in detail. Hypertension: Need to obtain and restart home medication. Chronic wound to the lower extremity: Continue with prior wound care healing recommendations. Depression with anxiety: Continue with home medication. Diabetes mellitus type 2 non-insulin dependent: Will monitor Accu-Cheks and provide sliding scale. Time Spent Managing Pts Care (In Minutes): 55
[2020-01-21] MEDS ORDERED: TRAMADOL HCL 50 MG TAB PO PRN (09:55)
--- NOTE | 2020-01-21 10:02 | P.CNS ---
Date of Consult: 01/21/20 Reason for Consult: shoulder dislocation Primary Care Provider: Dr. Valero Chief Complaint: Mechanical fall History of Present Illness: This 69 yrs old Female presents to ER via EMS with complaints of Fall Injury. The patient fell from an upright position, while walking, and struck a concrete surface. Onset: 01/21/2018. there was a shoulder dislocation with a bony avulsion, reduced in the emergency department Patient admits to drinking 6 pack of beer this evening. Patient reports trip and fall while walking out or restaurant tonight. Allergies doxycycline Allergy (Severe, Verified 12/17/19 22:08) Nausea/Vomiting Sulfa (Sulfonamide Antibiotics) Allergy (Severe, Verified 12/17/19 22:08) Hives sulfamethoxazole [From Bactrim] Allergy (Severe, Verified 12/17/19 22:08) Hives trimethoprim [From Bactrim] Allergy (Severe, Verified 12/17/19 22:08) Hives Home medications list reviewed: Yes Home Medications: Amlodipine [Norvasc*] 10 mg PO DAILY 12/17/19 Clonidine HCl [Catapres] 0.1 mg PO PRN PRN 12/17/19 Duloxetine HCl [Cymbalta] 30 mg PO DAILY 12/17/19 Lisinopril [Zestril] 20 mg PO DAILY 12/17/19 Melatonin 10 mg PO BEDTIME 12/17/19 Metformin HCl 1,000 mg PO BID 12/17/19 Metoprolol Tartrate [Lopressor] 100 mg PO DAILY 12/17/19 clonazePAM [Klonopin*] 1 mg PO TIDP PRN 12/17/19 - Past Medical/Surgical History Diabetic: Yes -: HTN -: Diabetes mellitus type 2 [id number] -: Lupus -: Rheumatoid arthritis -: CAD -: Depression with anxiety -: Former smoker -: -: Hysterectomy -: Tonsillectomy -: Incision and drainage of thumb Psychosocial/ Personal History: Patient is at home - Family History Mother Medical History: Diabetes, Cancer Notes: uterine cancer Father Medical History: Cancer Notes: cancer of kidney, skin, and lung Brother Medical History: Heart disease, Cancer Notes: Brother 1. "heart problems" Brother 2. cancer - nonhogkin lymphoma Sister Medical History: Cancer Notes: skin cancer - Social History Smoking Status: Unknown if ever smoked Alcohol use: Yes CD- Drugs: No Caffeine use: No Place of Residence: Home Physical Examination Temp Pulse Resp BP Pulse Ox 97.9 F 114 H 19 194/93 H 95 01/21/20 09:54 01/21/20 09:54 01/21/20 09:54 01/21/20 09:54 01/21/20 09:54 General: Alert, Oriented x3 HEENT: Atraumatic Respiratory: Normal air movement Cardiovascular: No edema Musculoskeletal: Other (left shoulder in arm sling, nvi distally) Neurological: Normal speech Laboratory Data (last 24 hrs) 01/21/20 02:00: Total Bilirubin 0.4, AST 29, ALT 17, Alkaline Phosphatase 107 01/20/20 23:18: Creatinine 0.57 01/20/20 23:18: WBC 6.7, Hgb 11.7 L, Hct 35.6 L, Plt Count 204 01/20/20 23:18: Sodium 127 L, Potassium 3.2 L, BUN 4 L, Creatinine 0.60, Glucose 175 H Imagings Data: EXAM DESCRIPTION: RAD - Humerus Left - 01/21/2020 4:01 am CLINICAL HISTORY: fall;Pain COMPARISON: Shoulder 1 View dated 01/21/2020; Chest Abdomen Pelvis W Cont dated 01/21/2020 FINDINGS: Anterior dislocation of the left femoral head present. AC joint is unremarkable. 10-12 mm sized fracture fragment is present. Origin is difficult to determine from this examination. The glenoid appears to be intact. Fracture fragment is probably from the greater tuberosity of the humerus. Shaft and distal left humerus are intact. Limited assessment shows no gross elbow joint abnormality. Soft tissue swelling present around the left shoulder joint. IMPRESSION: Left humerus anterior dislocation with 10-12 mm sized fracture fragment probably from the greater tuberosity. The fracture fragment remains in proximity to the bony glenoid. No AC joint abnormality seen. Dictated By: Gigi Antonio MD 01/21/20 0738 Reason for Exam: post reduction Report Status: Signed EXAM DESCRIPTION: RAD - Shoulder 1 View - 01/21/2020 5:03 am FINDINGS: Single portable image obtained labeled post reduction. Humeral head has been reduced to anatomic position. Previously detailed fracture fragment is obscured by overlying bony structures. No AC joint abnormality. Dictated By: Gigi Antonio MD 01/21/20 0748 - Problems (1) Dislocation, shoulder closed Onset Date: ~01/21/20 Current Visit: Yes Status: Acute Plan: she will continue her shoulder sling 3 weeks and follow up in the office then Qualifiers: Encounter type: initial encounter Laterality: left Qualified Code(s): S43.005A - Unspecified dislocation of left shoulder joint, initial encounter
[2020-01-21] MEDS ORDERED: POTASSIUM 25 MEQ EFFERV TAB PO ONE (10:19)
[2020-01-21] MEDS: HYDROCODONE/APAP 7.5/325 MG TAB PO PRN ×2 (11:03→14:49)
[2020-01-21 11:14] LABS: Phosphorus 2.9 mg/dL (2.5-4.9)
[2020-01-21 11:14] LABS: Absolute Lymphocytes (CBC) 1.2 K/uL (0.7-4.9); Basophils % 0.2 % (0-1.3); Hematocrit 34.5 % (36.0-45.0); Lymphocytes % 12.7 % (15.3-44.8); RBC Red Blood Cell Count 3.75 M/uL (3.86-4.86)
[2020-01-21 11:19] LABS: Magnesium 1.2 mg/dL (1.8-2.4)
[2020-01-21] MEDS ORDERED: Magnesium Sulfate 2gm IVPB 2 G/50 ML BAG IV ONE (11:25)
[2020-01-21] MEDS ORDERED: GLUCAGON 1 MG/VIAL IM PRN (11:44)
[2020-01-21] MEDS ORDERED: D50W 25 GM/50 ML SYRINGE/VIAL IV PRN (11:44)
[2020-01-21 11:46] LABS: ALT/SGPT 21 U/L (12-78); AST/SGOT 30 U/L (15-37); Alkaline Phosphatase 116 U/L (45-117); BUN Blood Urea Nitrogen 5 mg/dL (7-18); Bicarbonate 25 mmol/L (21-32); Bilirubin Total 0.8 mg/dL (0.2-1.0); Glucose Level 197 mg/dL (74-106); Phosphorus 3.4 mg/dL (2.5-4.9); Potassium 3.9 mmol/L (3.5-5.1); Sodium Level 128 mmol/L (136-145)
[2020-01-21 11:47] LABS: Magnesium 1.2 mg/dL (1.8-2.4)
--- NOTE | 2020-01-21 13:00 | RAD REPORT ---
EXAM DESCRIPTION: CT - [id number] - 01/21/2020 3:34 am CLINICAL HISTORY: Fall COMPARISON: CT head September 29, 2014 TECHNIQUE: Multiple helical axial tomographic images were obtained of the head and cervical spine wi thout intravenous contrast. Coronal and sagittal reformatted images were obtained. This exam was perf ormed according to our departmental dose-optimization program, which includes automated exposure cont rol, adjustment of the mA and/or kV according to patient size and/or use of iterative reconstruction technique. FINDINGS: There is no acute intracranial hemorrhage. Focal hypodensity in the right basal ganglia is suggestive of an age-indeterminate infarct. No mass. No midline shift. No ventriculomegaly. Espinosa-whi te matter differentiation is maintained. Paranasal sinuses are clear. Mastoid air cells and middle ear spaces are clear. Orbits and orbital co ntents are unremarkable. No acute calvarial fracture. No evidence for an acute fracture of the cervical spine. Multilevel degenerative changes of the cervi dedra spine noted. Disc space narrowing and osteophyte information is most significant from C5 through C7 with associated neuroforaminal narrowing. There is a subtle linear lucency within the head/neck region of the left second rib questionable for an acute nondisplaced fracture. Surrounding soft tissues are unremarkable. IMPRESSION: 1. No acute intracranial hemorrhage. 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 2. No evidence for an acute fracture of the cervical spine. 3. Cervical spine degenerative changes. 4. Questionable acute fracture of the posterior left second rib. Electronically signed by: Mario Titus MD 01/21/2020 12:53 AM NUCLEAR REACTOR TECHNICIAN Due to temporary technical issues with the PACS/Fluency reporting system, reports are being signed by the in house radiologist as a courtesy to ensure prompt reporting. The interpreting radiologist is f ully responsible for the content of the report.
--- NOTE | 2020-01-21 13:29 | RAD REPORT ---
EXAM DESCRIPTION: CT - Chest Abdomen Pelvis W Cont - 01/21/2020 3:35 am CLINICAL HISTORY: Fall COMPARISON: None. TECHNIQUE: CT CHEST ABDOMEN PELVIS WITH IV CONTRAST on 01/21/2020 1:18 AM REPORTS ANALYST. MIPS reconstructions w ere generated. This exam was performed according to our departmental dose-optimization program, which includes autom ated exposure control, adjustment of the mA and/or kV according to patient size and/or use of iterati ve reconstruction technique. FINDINGS: Vascular: Mid ascending thoracic aorta is dilated 4.5 cm. Pulmonary arteries are adequatel y opacified without acute or chronic filling defects. Abdominal aorta is normal in course and caliber without aneurysm. Pelvic arteries are patent without aneurysm or occlusion. Chest: The heart is mildly enlarged. There is no pericardial effusion. Intrathoracic lymph nodes are not enlarged. There is no pleural effusion, pleural thickening or pneumothorax. Central airways are patent. There i s edema within the left deltoid muscle. Abdomen: The liver is normal in appearance. There is no biliary dilatation. Gallbladder is normal in appearance. The pancreas and spleen are normal in appearance. Adrenal glands are normal. Kidneys are mildly atrophic. There is no free air. There is no retroperitoneal adenopathy. Pelvis: There is no bowel obstruction. Urinary bladder is unremarkable. There is no free fluid. Hyste rectomy was performed. Appendix is normal. Skeleton: There is an old fracture of the posterior left 11th rib. There is a small fracture fragment is adjacent to the glenoid. There is anterior dislocation of the left glenohumeral joint. IMPRESSION: Left shoulder dislocation with a small adjacent fracture fragment. Otherwise no definite acute posttraumatic findings. Electronically signed by: Nacho Corcoran MD 01/21/2020 2:44 AM REPORTS ANALYST Due to temporary technical issues with the PACS/Fluency reporting system, reports are being signed by the in house radiologist as a courtesy to ensure prompt reporting. The interpreting radiologist is f ully responsible for the content of the report.
--- NOTE | 2020-01-21 14:10 | P.DS ---
Admission Date: 01/21/20 Discharge Date: 01/21/20 Primary Care Provider: Dr. Valero Disposition: DC HOME/HOME HEALTH CARE Discharge Condition: GOOD Reason for Admission: Mechanical fall Consultations: Orthopedics-Dr. Lagos Procedures: CT Scan: FINDINGS: Vascular: Mid ascending thoracic aorta is dilated 4.5 cm. Pulmonary arteries are adequately opacified without acute or chronic filling defects. Abdominal aorta is normal in course and caliber without aneurysm. Pelvic arteries are patent without aneurysm or occlusion. Chest: The heart is mildly enlarged. There is no pericardial effusion. Intrathoracic lymph nodes are not enlarged. There is no pleural effusion, pleural thickening or pneumothorax. Central airways are patent. There is edema within the left deltoid muscle. Abdomen: The liver is normal in appearance. There is no biliary dilatation. Gallbladder is normal in appearance. The pancreas and spleen are normal in appearance. Adrenal glands are normal. Kidneys are mildly atrophic. There is no free air. There is no retroperitoneal adenopathy. Pelvis: There is no bowel obstruction. Urinary bladder is unremarkable. There is no free fluid. Hysterectomy was performed. Appendix is normal. Skeleton: There is an old fracture of the posterior left 11th rib. There is a small fracture fragment is adjacent to the glenoid. There is anterior dislocation of the left glenohumeral joint. IMPRESSION: Left shoulder dislocation with a small adjacent fracture fragment. Otherwise no definite acute posttraumatic findings. CT Head: FINDINGS: There is no acute intracranial hemorrhage. Focal hypodensity in the right basal ganglia is suggestive of an age-indeterminate infarct. No mass. No midline shift. No ventriculomegaly. Espinosa-white matter differentiation is maintained. Paranasal sinuses are clear. Mastoid air cells and middle ear spaces are clear. Orbits and orbital contents are unremarkable. No acute calvarial fracture. No evidence for an acute fracture of the cervical spine. Multilevel degenerative changes of the cervical spine noted. Disc space narrowing and osteophyte information is most significant from C5 through C7 with associated neuroforaminal narrowing. There is a subtle linear lucency within the head/neck region of the left second rib questionable for an acute nondisplaced fracture. Surrounding soft tissues are unremarkable. IMPRESSION: 1. No acute intracranial hemorrhage. 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 2. No evidence for an acute fracture of the cervical spine. 3. Cervical spine degenerative changes. 4. Questionable acute fracture of the posterior left second rib. Medical Problem List: Mechanical fall with left humerus anterior dislocation with fracture likely to the greater tuberosity, status post reduction Hyponatremia with mild dehydration Alcohol abuse Hypertension Chronic wound to the lower extremity Diabetes mellitus type 2 non-insulin dependent Depression with anxiety Brief History of Present Illness: 69-year-old female presented to the emergency room after a fall. Patient found to have left humeral dislocation and fracture. Patient admitted for further evaluation. Hospital Course: Patient presented to the hospital after a mechanical fall. She had been drinking. She had a left humerus anterior dislocation with fracture. The dislocation was reduced in the emergency room. Patient was monitored closely. CT head shows no acute changes. Orthopedics evaluated patient. No further intervention was required. Patient will continue with an arm sling for 3 weeks. Patient will follow up in 3 weeks with Orthopedics. Thereafter physical therapy can be considered. Fall precautions in place. The patient was evaluated by physical therapy. Will recommend home health and physical therapy at discharge. A limited supply of tramadol 50 mg 1 pill 3 times a day as needed for pain will be provided. Recommend follow up with her PCP in 1 week to follow up this hospitalization. Patient was found to be high pony tree make likely from mild dehydration. Patient also had an elevated alcohol level. Patient admitted drinking. Alcohol cessation addressed in detail. Patient was given IV fluid hydration. At discharge sodium has improved. Recommend to recheck lab-BMP in 1 week to monitor her progress. Will recommend folic acid 1 mg daily and thiamine 100 mg daily. Alcohol cessation education will be provided. Patient with hypertension. Medications were restarted. At discharge blood pressure slightly elevated likely with her pain. At discharge she will continue with her medications- Norvasc 10 mg daily, lisinopril 20 mg daily, metoprolol 100 mg daily, and clonidine 0.1 mg to be use as needed. Recommend to monitor blood pressure daily. If her blood pressure remains elevated she is to contact her PCP for further recommendation. Patient with diabetes mellitus type 2 insulin dependent. This has remained stable. At discharge she may continue with metformin 1000 mg 1 pill twice daily. Further adjustment can be done by her PCP. Patient with a chronic wound to the lower extremity. Patient may continue with wound care instructions. Patient has follow up with wound care tomorrow. Patient with depression. At discharge she will continue with her current medications. Vital Signs/Physical Exam: Temp Pulse Resp BP Pulse Ox 97.9 F 101 H 19 190/91 H 95 01/21/20 12:00 01/21/20 12:11 01/21/20 12:03 01/21/20 12:11 01/21/20 12:03 General: Alert, In no apparent distress, Oriented x3, Cooperative HEENT: Atraumatic Neck: Supple Respiratory: Clear to auscultation bilaterally, Normal air movement Cardiovascular: Normal pulses, Regular rate/rhythm Gastrointestinal: Normal bowel sounds, Soft and benign, Non-distended Integumentary: Other (Left arm in a sling. Lower extremity bandaged) Neurological: Normal speech, Normal strength at 5/5 x4 extr, Normal tone, Normal affect Laboratory Data at Discharge: WBC 9.8 K/uL (4.3-10.9) D 01/21/20 10:47 Hgb 11.6 g/dL (12.0-15.0) L 01/21/20 10:47 Hct 34.5 % (36.0-45.0) L 01/21/20 10:47 Plt Count 234 K/uL (152-406) 01/21/20 10:47 Sodium 128 mmol/L (136-145) L 01/21/20 10:47 Potassium 3.9 mmol/L (3.5-5.1) 01/21/20 10:47 BUN 5 mg/dL (7-18) L 01/21/20 10:47 Creatinine 0.63 mg/dL (0.55-1.3) 01/21/20 10:47 Glucose 197 mg/dL (74-106) H 01/21/20 10:47 Phosphorus 3.4 mg/dL (2.5-4.9) 01/21/20 10:47 Magnesium 1.2 mg/dL (1.8-2.4) L* 01/21/20 10:47 Total Bilirubin 0.8 mg/dL (0.2-1.0) 01/21/20 10:47 AST 30 U/L (15-37) 01/21/20 10:47 ALT 21 U/L (12-78) 01/21/20 10:47 Alkaline Phosphatase 116 U/L (45-117) 01/21/20 10:47 Home Medications: Amlodipine [Norvasc*] 10 mg PO DAILY 12/17/19 Clonidine HCl [Catapres] 0.1 mg PO PRN PRN 12/17/19 Duloxetine HCl [Cymbalta] 30 mg PO DAILY 12/17/19 Lisinopril [Zestril] 20 mg PO DAILY 12/17/19 Melatonin 10 mg PO BEDTIME 12/17/19 Metformin HCl 1,000 mg PO BID 12/17/19 Metoprolol Tartrate [Lopressor] 100 mg PO DAILY 12/17/19 clonazePAM [Klonopin*] 1 mg PO TIDP PRN 12/17/19 Aspirin [Aspirin EC 81 MG] 81 mg PO DAILY #30 tablet. 01/21/20 Folic Acid 1 mg PO DAILY #90 tablet 01/21/20 Thiamine HCl 100 mg PO DAILY #90 tablet 01/21/20 Tramadol HCl [Ultram] 50 mg PO TID PRN #14 tablet 01/21/20 New Medications: Aspirin [Aspirin EC 81 MG] 81 mg PO DAILY #30 tablet. Folic Acid 1 mg PO DAILY #90 tablet Thiamine HCl 100 mg PO DAILY #90 tablet Tramadol HCl [Ultram] 50 mg PO TID PRN #14 tablet PRN Reason: Pain Scale 2-4 (Mild) Patient Discharge Instructions: 1. Recommend follow up with her PCP in 1 week to follow up this hospitalization. 2. Patient presented to the hospital after a mechanical fall. She had been drinking. She had a left humerus anterior dislocation with fracture. The dislocation was reduced in the emergency room. Patient was monitored closely. CT head shows no acute changes. Orthopedics evaluated patient. No further intervention was required. Patient will continue with an arm sling for 3 weeks. Patient will follow up in 3 weeks with Orthopedics. Thereafter physical therapy can be considered. Fall precautions in place. The patient was evaluated by physical therapy. Will recommend home health and physical therapy at discharge. A limited supply of tramadol 50 mg 1 pill 3 times a day as needed for pain will be provided. Recommend follow up with her PCP in 1 week to follow up this hospitalization. 3. Patient was found to be high pony tree make likely from mild dehydration. Patient also had an elevated alcohol level. Patient admitted drinking. Alcohol cessation addressed in detail. Patient was given IV fluid hydration. At discharge sodium has improved. Recommend to recheck lab-BMP in 1 week to monitor her progress. Will recommend folic acid 1 mg daily and thiamine 100 mg daily. Alcohol cessation education will be provided. 4. Patient with hypertension. Medications were restarted. At discharge blood pressure slightly elevated likely with her pain. At discharge she will continue with her medications- Norvasc 10 mg daily, lisinopril 20 mg daily, metoprolol 100 mg daily, and clonidine 0.1 mg to be use as needed. Recommend to monitor blood pressure daily. If her blood pressure remains elevated she is to contact her PCP for further recommendation. 5. Patient with diabetes mellitus type 2 insulin dependent. This has remained stable. At discharge she may continue with metformin 1000 mg 1 pill twice daily. Further adjustment can be done by her PCP. Patient with a chronic wound to the lower extremity. Patient may continue with wound care instructions. Patient has follow up with wound care tomorrow. 6. Patient with depression. At discharge she will continue with her current medications. Diet: ADA Activity: Fall precautions Time spent managing pt's care (in minutes): 55
[2020-01-21 14:51] VITALS: BP 150/80
[2020-01-21] MEDS ORDERED: INSULIN -REGULAR HUMAN 50 UNIT/0.5 ML ML SQ SCH (16:30)
[2020-01-21] MEDS ORDERED: ENOXAPARIN 30 MG/0.3 ML SQ SCH (17:00)
--- NOTE | 2020-01-22 07:59 | P.HP ---
Certification for Inpatient Patient admitted to: Observation With expected LOS: <2 Midnights Patient will require the following post-hospital care: None Practitioner: I am a practitioner with admitting privileges, knowledge of patient current condition, hospital course, and medical plan of care. Services: Services provided to patient in accordance with Admission requirements found in Title 42 Section 412.3 of the Code of Federal Regulations Patient History Date of Service: 01/21/20 Reason for admission: Mechanical fall History of Present Illness: PATIENT IS A 69-YEAR-OLD FEMALE WHO WAS DRINKING AT [employer] WITH HER FAMILY AFTER A T-BALL GAME IN THE LOCAL AREA. SHE WENT OUTSIDE AND SHE ENDED UP FALLING. SHE SUFFERED A DISLOCATED SHOULDER WAS HAVING SEVERE PAIN. THEY PUT A BRACE ON HER AT THIS TIME. PATIENT WILL GET ORTHOPEDIC EVALUATION. PATIENT ALSO HAD CT SCAN FINDINGS OF A POSSIBLE LACUNAR INFARCT. THIS LOOKS TO BE AN OLD FINDING BUT PATIENT DENIES EVER HAVING A STROKE. SHE WILL NEED INPATIENT VERSUS OUTPATIENT EVALUATION BY NEUROLOGY. SHE DOES NOT HAVE ANY FOCAL DEFICITS EXCEPT FOR THE LEFT ARM WHICH IS DISLOCATED WHICH IS DIFFICULT TO EXAMINE. HER BUYER BROKER ARE NORMAL ON THAT SIDE. WE WILL HAVE ORTHOPEDIC EVALUATION ALONG WITH PHYSICAL THERAPY EVALUATION. WE WILL ALSO GET NEUROLOGY TO SEE HER IF THEY ARE AVAILABLE. Allergies doxycycline Allergy (Severe, Verified 12/17/19 22:08) Nausea/Vomiting Sulfa (Sulfonamide Antibiotics) Allergy (Severe, Verified 12/17/19 22:08) Hives sulfamethoxazole [From Bactrim] Allergy (Severe, Verified 12/17/19 22:08) Hives trimethoprim [From Bactrim] Allergy (Severe, Verified 12/17/19 22:08) Hives Home Medications: Amlodipine [Norvasc*] 10 mg PO DAILY 12/17/19 Clonidine HCl [Catapres] 0.1 mg PO PRN PRN 12/17/19 Duloxetine HCl [Cymbalta] 30 mg PO DAILY 12/17/19 Lisinopril [Zestril] 20 mg PO DAILY 12/17/19 Melatonin 10 mg PO BEDTIME 12/17/19 Metformin HCl 1,000 mg PO BID 12/17/19 Metoprolol Tartrate [Lopressor] 100 mg PO DAILY 12/17/19 clonazePAM [Klonopin*] 1 mg PO TIDP PRN 12/17/19 Aspirin [Aspirin EC 81 MG] 81 mg PO DAILY #30 tablet.dr 01/21/20 Folic Acid 1 mg PO DAILY #90 tablet 01/21/20 Thiamine HCl 100 mg PO DAILY #90 tablet 01/21/20 Tramadol HCl [Ultram] 50 mg PO TID PRN #14 tablet 01/21/20 - Past Medical/Surgical History Diabetic: Yes -: HTN -: Diabetes mellitus type 2 [id number] -: Lupus -: Rheumatoid arthritis -: CAD -: Depression with anxiety -: Former smoker -: -: Hysterectomy -: Tonsillectomy -: Incision and drainage of thumb Psychosocial/ Personal History: Patient is at home - Family History Mother Medical History: Diabetes, Cancer Notes: uterine cancer Father Medical History: Cancer Notes: cancer of kidney, skin, and lung Brother Medical History: Heart disease, Cancer Notes: Brother 1. "heart problems" Brother 2. cancer - nonhogkin lymphoma Sister Medical History: Cancer Notes: skin cancer - Social History Alcohol use: Yes CD- Drugs: No Caffeine use: No Place of Residence: Home Review of Systems 10-point ROS is otherwise unremarkable Physical Examination - Vital Signs Temperature: 97.9 F Blood Pressure: 150/80 Pulse: 77 Respirations: 19 Pulse Ox (%): 95 - Physical Exam General: Alert, In no apparent distress, Oriented x3 HEENT: Atraumatic, PERRLA, Mucous membr. moist/pink, EOMI, Sclerae nonicteric Neck: Supple, 2+ carotid pulse no bruit, No LAD, Without JVD or thyroid abnormality Respiratory: Clear to auscultation bilaterally, Normal air movement Cardiovascular: Regular rate/rhythm, Normal S1 S2, No murmurs Gastrointestinal: Normal bowel sounds, Soft and benign, Non-distended, No tenderness Musculoskeletal: No clubbing, No swelling, Tenderness (LEFT SHOULDER PAIN) Integumentary: No rashes Neurological: Normal gait, Normal speech, Normal tone, Sensation intact, Cranial nerves 3-12 intact, Normal affect, Abnormal strength Lymphatics: No axilla or inguinal lymphadenopathy - Studies Laboratory Data (last 24 hrs) 01/21/20 02:00: Phosphorus 2.9, Magnesium 1.2 L* Assessment & Plan - Problems (Diagnosis) (1) Dislocation, shoulder closed Onset Date: ~01/21/20 Status: Acute Qualifiers: Encounter type: initial encounter Laterality: left Qualified Code(s): S43.005A - Unspecified dislocation of left shoulder joint, initial encounter (2) Osteomyelitis of ankle Status: Acute Qualifiers: Osteomyelitis type: unspecified type Laterality: right Qualified Code(s) : M86.9 - Osteomyelitis, unspecified (3) Depression Status: Chronic (4) Diabetes Onset Date: 05/07/17 Status: Chronic Qualifiers: Diabetes mellitus type: type 2 Diabetes mellitus mcc insulin use: without mcc use Diabetes mellitus complication status: with skin complications Diabetes mellitus complication detail: with other skin ulcer Qualified Code(s): E11.622 - Type 2 diabetes mellitus with other skin ulcer (5) Hypertension Onset Date: 05/07/17 Status: Chronic Qualifiers: Hypertension type: essential hypertension Qualified Code(s): I10 - Essential (primary) hypertension (6) Sleep apnea Status: Chronic (7) H/O: CVA (cerebrovascular accident) Status: Acute - Plan PLAN: 1. ORTHOPEDIC CONSULTATION FOR DISLOCATED LEFT SHOULDER 2. PHYSICAL THERAPY EVALUATION FOR RANGE OF MOTION 3. PAIN CONTROL 4. NEUROLOGY CONSULTATION FOR EVALUATION OF OLD STROKE 5. ANTI-PLATELET THERAPY AND STATIN THERAPY AN OUTPATIENT 6. GI AND DVT PROPHYLAXIS - Advance Directives Does patient have a Living Will: No Does patient have a Durable POA for Healthcare: No - Code Status/Comfort Care Code Status Assessed: Yes Code Status: Full Code Critical Care: No Time Spent Managing PTS Care (In Minutes): 45
[2020-01-22] MEDS ORDERED: lisinopriL 20 MG TAB PO SCH (09:00)
[2020-01-22] MEDS ORDERED: AMLODIPINE 10 MG TAB PO SCH (09:00)
== END 2020-01-21 15:29 | disposition home health service (06) ==
LOC: ER 22:56 → ERHOLD 01-21 04:48 → 2ND 01-21 07:41
PROVIDERS: ADMIT Hospitalist; ATTEND Family Medicine
PROC: 0RSKXZZ Reposition Left Shoulder Joint, External Approach (ICD-10-PCS; principal; 2020-01-20)
DX: S43.015A Anterior dislocation of left humerus, initial encounter (principal); W01.198A Fall on same level from slipping, tripping and stumbling with subsequent striking against other object, initial encounter; Y92.511 Restaurant or cafe as the place of occurrence of the external cause; E87.1 Hypo-osmolality and hyponatremia; E86.0 Dehydration; S81.809A Unspecified open wound, unspecified lower leg, initial encounter; X58.XXXA Exposure to other specified factors, initial encounter; F10.129 Alcohol abuse with intoxication, unspecified; Y90.0 Blood alcohol level of less than 20 mg/100 ml; I45.10 Unspecified right bundle-branch block; I71.4 Abdominal aortic aneurysm, without rupture; R00.0 Tachycardia, unspecified; E11.9 Type 2 diabetes mellitus without complications; I25.2 Old myocardial infarction; I10 Essential (primary) hypertension; I25.10 Atherosclerotic heart disease of native coronary artery without angina pectoris; F41.8 Other specified anxiety disorders; M06.9 Rheumatoid arthritis, unspecified; Z79.84 Long term (current) use of oral hypoglycemic drugs; Z79.899 Other long term (current) drug therapy; Z87.891 Personal history of nicotine dependence
CPT/HCPCS: 36415; 70450; 71045; 71260; 72125; 73020; 74177; 80048; 80053; 80076; 80320; 82947; 83735; 84100; 85025; 86850; 86900; 86901; 93005; 96374; 96375; 97116; 97161; 97530; 99285; G0378; J0360; J1170; J2175; J2270; J2405; J2704; J3475; J7030; Q9967

== ENCOUNTER 2020-03-30 19:21 | Emergency (ER) | payer OTHER ==
--- OUTSIDE RECORDS SUMMARY | 2020-03-30 19:44 | XMS REPORT ---
:1950 Author Organization [facility] t Address [address] [place] [address] Dr. Gordon. [address] [place] [id number] Care Team Providers Name Role Phone Unavailable Unavailable Unavailable Problems This patient has no known problems. Allergies, Adverse Reactions, Alerts This patient has no known allergies or adverse reactions. Medications This patient has no known medications.
--- NOTE | 2020-03-30 20:34 | RAD REPORT ---
EXAM DESCRIPTION: CT - Head C Spine Mpr Wo Con - 03/30/2020 8:12 pm CLINICAL HISTORY: Head and neck injury status post fall. Head and neck pain COMPARISON: December 2019 TECHNIQUE: Computed axial tomography of the head and cervical spine was obtained. Sagittal and coronal reconstruction was performed. All CT scans are performed using dose optimization technique as appropriate and may include automated exposure control or mA/KV adjustment according to patient size. FINDINGS: An intracranial bleed is not seen. Small low-density area within the right basal ganglia c ompatible with an old lacunar infarction. The ventricles are normal in caliber. An extra-axial fluid collection is not noted.Fluid within the v isualized sinuses and mastoids is not seen A cervical fracture is not visualized. No dislocation is noted. Spondylosis C3-4 results in marked le ft foraminal stenosis IMPRESSION: No acute intracranial abnormality is seen. A cervical fracture is not visualized. If the patient continues to have symptoms to suggest intracra nial /spinal cord pathology then MRI would be recommended
[2020-03-30] MEDS ORDERED: TETANUS & DIPHTHERIA TOX,ADULT 0.5 ML VIAL ONE (20:51)
--- NOTE | 2020-03-30 21:15 | EDPHYS ---
Physician Documentation [facility] Name: Bridgett Gotti Age: 69 yrs Sex: Female : 1950 Arrival Date: 03/30/2020 Time: 19:24 Bed 13 Private MD: ED Physician Prakash Walton HPI: 03/30 19:55 This 69 yrs old Female presents to ER via Ambulatory with complaints of Fall jmm Injury. 19:55 Details of fall: The patient fell from an upright position, while walking. Onset: The jmm symptoms/episode began/occurred acutely, just prior to arrival. Associated injuries: The patient sustained injury to the head. The patient has not experienced similar symptoms in the past. This is a 69 year old female with a history of DM, RA that presents to the ED with a lip laceration which occurred after tripping on a door stop. Patient fell face first. Denies vomiting, headache, loc. . Historical: - Allergies: 19:40 Bactrim; ll1 19:40 Sulfa (Sulfonamide Antibiotics); ll1 19:40 Doxycycline; ll1 - PMHx: 19:40 Diabetes - NIDDM; Rheumatoid Arthritis; Back pain; Depression; Hypertension; Sleep ll1 Apnea; Enteritis; Lupus; - PSHx: 19:40 right leg skin graft; ll1 19:40 right leg surgery x 2 with wound care; ll1 - Immunization history:: Last tetanus immunization: unknown. - Social history:: Smoking status: Patient denies any tobacco usage or history of. Patient uses alcohol, only on a social basis. Patient/guardian denies using street drugs. ROS: 19:55 Constitutional: Negative for fever, chills, and weight loss, Cardiovascular: Negative jmm for chest pain, palpitations, and edema, Respiratory: Negative for shortness of breath, cough, wheezing, and pleuritic chest pain. 19:55 Skin: Positive for laceration(s). 19:55 All other systems are negative. Exam: 19:55 Constitutional: This is a well developed, well nourished patient who is awake, alert, jmm and in no acute distress. 19:55 Eyes: EOMI, no conjunctival erythema appreciated ENT: Moist Mucus Membranes Neck: Trachea midline, Supple Chest/axilla: Normal chest wall appearance and motion. Cardiovascular: Regular rate and rhythm. No edema appreciated Respiratory: Normal respirations, no respiratory distress appreciated Abdomen/GI: Non distended, soft Back: Normal ROM 19:55 Head/face: superficial lower lip laceration noted. 19:55 Skin: 2 cm lower lip laceration noted, superficial. no active bleeding is appreciated. . 19:55 Neuro: Orientation: is normal, Mentation: is normal, Memory: is normal. 19:55 Psych: Behavior/mood is pleasant, cooperative. Vital Signs: 19:36 BP 189 / 89; Pulse 93; Resp 17; Temp 98.5; Pulse Ox 97% ; Pain 8/10; ll1 MDM: 19:55 Patient medically screened. [facility] 21:13 Data reviewed: vital signs, nurses notes. Counseling: I had a detailed discussion with courtney the patient and/or guardian regarding: the historical points, exam findings, and any diagnostic results supporting the discharge/admit diagnosis, the need for outpatient follow up, to return to the emergency department if symptoms worsen or persist or if there are any questions or concerns that arise at home. ED course: CT negative. Patient given head injury return precautions. Patient understood and agrees with the plan of care. . 03/30 19:58 Order name: CT Head C Spine; Complete Time: 20:41 courtney Administered Medications: 20:55 Drug: Tetanus-Diphtheria Toxoid Adult 0.5 ml {R[employer]man: [place]. Exp: mg2 01/09/2022. Lot #: [id number]. } Route: IM; Site: right deltoid; 21:32 Follow up: Response: No adverse reaction ah Disposition: 03/31 02:36 Co-signature as Attending Physician, Prakash Walton MD I agree with the assessment and [facility] plan of care. Disposition: 03/30/20 21:14 Discharged to Home. Impression: Superficial injury of head, Laceration without foreign body of lip. - Condition is Stable. - Discharge Instructions: Head Injury, Adult, Mouth Laceration. - Medication Reconciliation Form, Thank You Letter, Antibiotic Education, Prescription Opioid Use form. - Follow up: Private Physician; When: 2 - 3 days; Reason: Recheck today's complaints, Continuance of care, Re-evaluation by your physician. Signatures: Dispatcher [employer] EDMS Devante Best PA PA jmm Wadley, Terrence, MD MD tw4 Rashad Pruett, RN RN [facility] Lizzy Lentz, RN RN Yaron Madrigal RN RN ll1 Corrections: (The following items were deleted from the chart) 03/30 21:33 21:14 03/30/2020 21:14 Discharged to Home. Impression: Superficial injury of head; ah Laceration without foreign body of lip. Condition is Stable. Forms are Medication Reconciliation Form, Thank You Letter, Antibiotic Education, Prescription Opioid Use. Follow up: Private Physician; When: 2 - 3 days; Reason: Recheck today's complaints, Continuance of care, Re-evaluation by your physician. jmm
--- NOTE | 2020-03-30 21:15 | ER ---
Nurse's Notes [facility] Name: Bridgett Gotti Age: 69 yrs Sex: Female : 1950 Arrival Date: 03/30/2020 Time: 19:24 Bed 13 Private MD: Diagnosis: Superficial injury of head;Laceration without foreign body of lip Presentation: 03/30 19:36 Chief complaint: Patient states: Tripped on uneven sidewalk. Hit lower face on ll1 concrete. Laceration to lower lip, bleeding controlled. + takes plavix. Abrasion noted to knee. Denies LOC. Coronavirus screen: Proceed with normal triage. Patient denies a cough. Patient denies shortness of breath or difficulty breathing. Patient denies measured and/or subjective temperature greater than 100.4F prior to today's visit. Patient denies travel on a cruise ship or to a country the [facility] currently lists as an affected area. Patient denies contact with known and/or suspected case of COVID-19. Ebola Screen: Patient denies travel to an Ebola-affected area in the 21 days before illness onset. Initial Sepsis Screen: Does the patient meet any 2 criteria? HR > 90 bpm. No. Patient's initial sepsis screen is negative. Does the patient have a suspected source of infection? No. Patient's initial sepsis screen is negative. Risk Assessment: Do you want to hurt yourself or someone else? Patient reports no desire to harm self or others. Onset of symptoms was March 30, 2020. 19:36 Method Of Arrival: Ambulatory ll1 19:36 Acuity: LASHONDA 3 ll1 Historical: - Allergies: 19:40 Bactrim; ll1 19:40 Sulfa (Sulfonamide Antibiotics); ll1 19:40 Doxycycline; ll1 - PMHx: 19:40 Diabetes - NIDDM; Rheumatoid Arthritis; Back pain; Depression; Hypertension; Sleep ll1 Apnea; Enteritis; Lupus; - PSHx: 19:40 right leg skin graft; ll1 19:40 right leg surgery x 2 with wound care; ll1 - Immunization history:: Last tetanus immunization: unknown. - Social history:: Smoking status: Patient denies any tobacco usage or history of. Patient uses alcohol, only on a social basis. Patient/guardian denies using street drugs. Screenin:40 Abuse screen: Denies threats or abuse. Denies injuries from another. Nutritional mg2 screening: No deficits noted. Tuberculosis screening: No symptoms or risk factors identified. Fall Risk Fall in past 12 months (25 points). Assessment: 19:55 General: Appears in no apparent distress. Behavior is calm, cooperative. Pain: Complains of pain in lower lip and lower anette border Pain currently is 8 out of 10 on a pain scale. Quality of pain is described as aching, Pain began 1 hour ago. Is continuous. Neuro: Level of Consciousness is awake, alert, Oriented to person, place, time, situation. Cardiovascular: Heart tones S1 S2 present. Respiratory: Airway is patent Respiratory effort is even, unlabored. GI: Bowel sounds present X 4 quads. : No signs and/or symptoms were reported regarding the genitourinary system. EENT:. Derm: Wound noted lower lip and lower anette border Wound is in inside bottom lip and appears she bit through the lip. Musculoskeletal: No signs and/or symptoms reported regarding the musculoskeletal system. Injury Description: pt tripped and fell in her driveway and bit lip when she hit the ground. 21:32 Reassessment: Cleaned with NS and applied ice to lip. Vital Signs: 19:36 BP 189 / 89; Pulse 93; Resp 17; Temp 98.5; Pulse Ox 97% ; Pain 8/10; ll1 ED Course: 19:24 Patient arrived in ED. cl3 19:27 Devante Best PA is PHCP. m 19:27 Prakash Walton MD is Attending Physician. [facility] 19:38 Triage completed. ll1 19:40 Patient has correct armband on for positive identification. mg2 19:41 Arm band placed on Patient placed in an exam room, on a stretcher. ll1 19:54 Lizzy Lentz, RN is Primary Nurse. ah 20:12 CT Head C Spine In Process Unspecified. EDMS 21:32 No provider procedures requiring assistance completed. Patient did not have IV access ah during this emergency room visit. Administered Medications: 20:55 Drug: Tetanus-Diphtheria Toxoid Adult 0.5 ml {[employer]: [place]. Exp: mg2 01/09/2022. Lot #: [id number]. } Route: IM; Site: right deltoid; 21:32 Follow up: Response: No adverse reaction Outcome: 21:14 Discharge ordered by MD. valdez 21:31 Discharged to home ambulatory. 21:31 Condition: good 21:31 Discharge instructions given to patient, Instructed on discharge instructions, follow up and referral plans. Demonstrated understanding of instructions, follow-up care. 21:33 Patient left the ED. Signatures: Dispatcher [employer] EDMS Devante Best PA PA jmm Gardose, Michele, RN RN mg2 Lewis, Charde cl3 Lizzy Lentz RN RN ah Lewis, Lynsay, RN RN ll1
[2020-03-30 23:13] VITALS: BP 189/89; TEMP 98.5; O2SAT 97
== END 2020-03-30 21:33 | disposition home or self-care (01) ==
LOC: ER 19:21
DX: S01.511A Laceration without foreign body of lip, initial encounter (principal); W01.198A Fall on same level from slipping, tripping and stumbling with subsequent striking against other object, initial encounter; Y93.01 Activity, walking, marching and hiking; Y92.9 Unspecified place or not applicable; Z23 Encounter for immunization; Z88.1 Allergy status to other antibiotic agents; Z88.2 Allergy status to sulfonamides; I10 Essential (primary) hypertension
CPT/HCPCS: 70450; 72125; 90471; 90714; 99283

== ENCOUNTER 2020-10-12 14:24 | Emergency (ER) | payer OTHER ==
--- OUTSIDE RECORDS SUMMARY | 2020-10-12 14:26 | XMS REPORT | Continuity of Care Document ---
:1950 Author Organization [facility] t Address [address] Gordon[address] [place] [address] Care Team Providers Name Role Phone Octavia Lagos MD Attending Clinician Problems This patient has no known problems. Allergies, Adverse Reactions, Alerts This patient has no known allergies or adverse reactions. Medications This patient has no known medications. Procedures This patient has no known procedures. Encounters Start End Encounter Admission Attending Care Care Encounter Source Date/Time Date/Time Type Type Clinicians Facility Department ID 2020-03-08 2020-03-08 Office VIJAY Lagos [id number] 14:45:08 15:08:51 Visit [facility] [id number] Surgical [id number] Specialti [id number] [address] Results This patient has no known results.
[2020-10-12] MEDS ORDERED: ONDANSETRON 4 MG/2 ML VIAL ONE (15:13)
[2020-10-12] MEDS ORDERED: DIAZEPAM 10 MG/2 ML INJ SYRINGE ONE ×3 (15:13→20:12)
[2020-10-12 15:17] LABS: Absolute Lymphocytes (CBC) 1.5 K/uL (0.7-4.9); Hematocrit 43.7 % (36.0-45.0); MPV 9.2 fL (7.6-11.3); RBC Red Blood Cell Count 4.62 M/uL (3.86-4.86)
[2020-10-12 15:20] LABS: Protime INR 1.1
--- NOTE | 2020-10-12 15:37 | RAD REPORT ---
EXAM DESCRIPTION: RAD - Chest Single View - 10/12/2020 3:21 pm CLINICAL HISTORY: weakness, dizziness Chest pain. COMPARISON: Chest Single View dated 01/20/2020; Chest Single View dated 11/27/2019; Chest Single View d ated 05/04/2017 FINDINGS: Portable technique limits examination quality. The lungs are grossly clear. The heart is normal in size. No displaced fractures. IMPRESSION: No acute intrathoracic process suspected.
--- NOTE | 2020-10-12 15:43 | RAD REPORT ---
EXAM DESCRIPTION: CT - Head Brain Wo Cont - 10/12/2020 3:29 pm CLINICAL HISTORY: DIZZINESS Headache, drowsiness COMPARISON: Head angio dated 05/13/2020; HEAD BRAIN W O CONTRAST dated 09/29/2014 TECHNIQUE: All CT scans are performed using dose optimization technique as appropriate and may inclu de automated exposure control or mA/KV adjustment according to patient size. FINDINGS: No intracranial hemorrhage, hydrocephalus or extra-axial fluid collection.No areas of brai n edema or evidence of midline shift. The paranasal sinuses and mastoids are clear. The calvarium is intact. Mild vertebral atherosclerosis . IMPRESSION: No acute intracranial abnormality.
[2020-10-12 15:57] LABS: Albumin 3.3 g/dL (3.4-5.0); Bilirubin Direct 0.2 mg/dL (0-0.2); Bilirubin Total 0.9 mg/dL (0.2-1.0); Potassium 4.6 mmol/L (3.5-5.1); Protein, Total 9.1 g/dL (6.4-8.2); Troponin (Emerg Dept Use Only) 0.02 ng/mL (0.0-0.045)
[2020-10-12 15:58] LABS: Magnesium 1.3 mg/dL (1.8-2.4)
--- NOTE | 2020-10-12 19:35 | RAD REPORT ---
EXAM DESCRIPTION: MRI - Brain Wo Cont - 10/12/2020 7:29 pm CLINICAL HISTORY: DIZZINESS Headache, drowsiness, CVA symptomology COMPARISON: Head Brain Wo Cont dated 10/12/2020 TECHNIQUE: Multi-sequence, multiplanar MR imaging of the brain was performed without contrast. FINDINGS: No intracranial hemorrhage, hydrocephalus or extra-axial fluid collections.A few T2 and FL AIR hyperintensities in the periventricular and deep white matter noted. No edema or shift of midline structures. No findings to suspect brain mass. DWI is negative for acute CVA. Midline structures are normally formed. Small mucous retention cyst versus polyp seen inferior right maxillary antrum. The paranasal sinuses and mastoids are otherwise clear. IMPRESSION: Negative for acute CVA or other acute intracranial process.
--- NOTE | 2020-10-12 19:43 | ER ---
Nurse's Notes [facility] Name: Bridgett Gotti Age: 70 yrs Sex: Female : 1950 Arrival Date: 10/12/2020 Time: 14:[address] Private MD: Diagnosis: Vertigo Presentation: 10/12 14:37 Chief complaint: Patient states: Dizziness since 4 am. Tried meclizine without relief. ll1 No fever. No N/V/D. Coronavirus screen: Client denies travel out of the [place] in the last 14 days. At this time, the client does not indicate any symptoms associated with coronavirus-19. Ebola Screen: Patient denies travel to an Ebola-affected area in the 21 days before illness onset. Initial Sepsis Screen: Does the patient meet any 2 criteria? HR > 90 bpm. No. Patient's initial sepsis screen is negative. Does the patient have a suspected source of infection? No. Patient's initial sepsis screen is negative. Risk Assessment: Do you want to hurt yourself or someone else? Patient reports no desire to harm self or others. Onset of symptoms was October 12, 2020. 14:37 Method Of Arrival: Ambulatory ll1 14:37 Acuity: LASHONDA 3 ll1 Historical: - Allergies: 14:41 Sulfa (Sulfonamide Antibiotics); ll1 14:41 Bactrim; ll1 - PMHx: 14:41 Back pain; Depression; Diabetes - NIDDM; Hypertension; Enteritis; Sleep Apnea; ll1 Rheumatoid Arthritis; Lupus; - PSHx: 14:41 right leg skin graft; right leg surgery x 2 with wound care; ll1 - Immunization history:: Flu vaccine is not up to date. - Social history:: Smoking status: Patient denies any tobacco usage or history of. Screenin:48 Abuse screen: Denies threats or abuse. Nutritional screening: No deficits noted. tw2 Tuberculosis screening: No symptoms or risk factors identified. Fall Risk Secondary diagnosis (15 points) impaired mobility. Assessment: 14:50 General: Appears in no apparent distress. well groomed, Behavior is calm, cooperative, tw2 appropriate for age. Pain: Denies pain. Neuro: Reports dizziness, since "about 4 am this morning". Cardiovascular: Heart tones S1 S2 Patient's skin is warm and dry. Respiratory: Airway is patent Respiratory effort is even, unlabored, Respiratory pattern is regular, symmetrical, Breath sounds are clear bilaterally. GI: Abdomen is round non-distended, obese, Bowel sounds present X 4 quads. : No signs and/or symptoms were reported regarding the genitourinary system. EENT: No signs and/or symptoms were reported regarding the EENT system. Derm: No signs and/or symptoms reported regarding the dermatologic system. Musculoskeletal: Range of motion: intact in all extremities. 14:51 Reassessment: provider at bedside at this time. tw2 15:52 Reassessment: Patient appears in no apparent distress at this time. Patient and/or tw2 family updated on plan of care and expected duration. Pain level reassessed. Patient is alert, oriented x 3, equal unlabored respirations, skin warm/dry/pink. Patient states feeling better. Patient states symptoms have improved. 16:49 Reassessment: Patient appears in no apparent distress at this time. Patient and/or tw2 family updated on plan of care and expected duration. Pain level reassessed. Patient is alert, oriented x 3, equal unlabored respirations, skin warm/dry/pink. 17:51 Reassessment: Patient appears in no apparent distress at this time. Patient and/or tw2 family updated on plan of care and expected duration. Pain level reassessed. Patient is alert, oriented x 3, equal unlabored respirations, skin warm/dry/pink. Patient states feeling better. 18:43 Reassessment: Patient appears in no apparent distress at this time. Patient and/or tw2 family updated on plan of care and expected duration. Pain level reassessed. Patient is alert, oriented x 3, equal unlabored respirations, skin warm/dry/pink. 18:58 Reassessment: pt transport to MRI via w/c with RACHEL Mari at this this. tw2 19:50 General: Appears in no apparent distress. comfortable, Behavior is calm, cooperative, rr5 appropriate for age, came back from MRI. 19:50 Reassessment: reassess by ED provider with order made and carried out. Patient states rr5 feeling better. Patient states symptoms have improved. Neuro: Level of Consciousness is awake, alert, obeys commands, Oriented to person, place, time, situation. Cardiovascular: Capillary refill < 3 seconds Patient's skin is warm and dry. Respiratory: Airway is patent Respiratory effort is even, unlabored, Respiratory pattern is regular, symmetrical. Derm: No signs and/or symptoms reported regarding the dermatologic system. Musculoskeletal: Capillary refill < 3 seconds. 20:25 Reassessment: Patient appears in no apparent distress at this time. Patient is alert, rr5 oriented x 3, equal unlabored respirations, skin warm/dry/pink. discharge instruction given and explained without complaints made. Vital Signs: 14:37 BP 174 / 111; Pulse 113; Resp 17; Temp 98.5; Pulse Ox 96% ; Weight 83.46 kg; Height 5 ll1 ft. 1 in. (154.94 cm); Pain 4/10; 15:14 BP 170 / 115; Pulse 99; Resp 16; Pulse Ox 98% on R/A; tw2 15:48 BP 139 / 70; Pulse 104; Resp 17; Pulse Ox 95% on R/A; tw2 16:48 BP 141 / 80; Pulse 100; Resp 14; Pulse Ox 95% on R/A; tw2 17:52 BP 125 / 76; Pulse 102; Resp 19; Pulse Ox 95% on R/A; tw2 18:43 BP 135 / 78; Pulse 104; Resp 22; Pulse Ox 96% on R/A; tw2 19:50 BP 133 / 75; Pulse 105; Resp 16; Pulse Ox 99% ; rr5 20:25 BP 131 / 70; Pulse 101; Resp 19; Pulse Ox 98% ; rr5 14:37 Body Mass Index 34.77 (83.46 kg, 154.94 cm) ll1 ED Course: 14:25 Patient arrived in ED. as 14:40 Triage completed. ll1 14:41 Arm band placed on Patient placed in an exam room, on a stretcher. ll1 14:41 Bed in low position. Call light in reach. Adult w/ patient. Pulse ox on. NIBP on. tw2 14:47 Stephy Olivera, ILAN is Primary Nurse. tw2 14:49 Devante Best PA is PHCP. [facility] 14:49 Tono Patrick MD is Attending Physician. [facility] 15:05 Initial lab(s) drawn, by nv, sent to lab. Inserted saline lock: 20 gauge in left tw2 antecubital area, using aseptic technique. Blood collected. 15:21 XRAY Chest (1 view) In Process Unspecified. EDMS 15:28 CT Head Brain wo Cont In Process Unspecified. EDMS 19:00 Report given to ILAN Castro. tw2 19:29 MRI - Brain Wo Cont In Process Unspecified. EDMS 20:18 Sandy Carvajal MD is Referral Physician. jmm 20:20 No provider procedures requiring assistance completed. IV discontinued, intact, rr5 bleeding controlled, No redness/swelling at site. Pressure dressing applied. Administered Medications: 15:08 Drug: Zofran (Ondansetron) 4 mg Route: IVP; Site: left antecubital; tw2 15:53 Follow up: Response: No adverse reaction tw2 15:11 Drug: Valium 5 mg Route: IVP; Site: left antecubital; tw2 15:53 Follow up: Response: No adverse reaction; Marked relief of symptoms tw2 16:09 Drug: Magnesium Sulfate 2 grams Route: IVPB; Infused Over: 2 hrs; Site: left tw2 antecubital; 18:00 Follow up: Response: No adverse reaction; IV Status: Completed infusion; IV Intake: [id number] 16:54 Drug: Valium 5 mg Route: IVP; Site: left antecubital; tw2 17:52 Follow up: Response: No adverse reaction; Marked relief of symptoms tw2 20:01 Drug: Valium 5 mg Route: IVP; Site: left antecubital; rr5 20:25 Follow up: Response: No adverse reaction rr5 Intake: 18:00 IV: 50ml; Total: 50ml. tw2 Outcome: 19:42 Discharge ordered by MD. [facility] 20:20 Discharged to home via wheelchair, with family. rr5 20:20 Condition: stable 20:20 Discharge instructions given to patient, Instructed on discharge instructions, follow up and referral plans. medication usage, Demonstrated understanding of instructions, follow-up care, medications, Prescriptions given X 1. 20:24 Patient left the ED. rr5 Signatures: Dispatcher [employer] EDMS Devante Best PA PA jmm Martinez, Amelia as Wise, Tara, RN RN tw2 Matthew Browning, ILAN RN rr5 Yaron Madrigal RN RN ll1 Corrections: (The following items were deleted from the chart) 15:53 15:47 General: Appears in no apparent distress. well groomed, Behavior is calm, tw2 cooperative, appropriate for age, 15:47 Pain: Denies pain. tw2 15:47 Neuro: Reports dizziness, since "about 4 am this morning" tw2 15:47 Cardiovascular: Heart tones S1 S2 Patient's skin is warm and dry. tw2 15:47 Respiratory: Airway is patent Respiratory effort is even, unlabored, Respiratory tw2 pattern is regular, symmetrical, Breath sounds are clear bilaterally. 15:47 GI: Abdomen is round non-distended, obese, Bowel sounds present X 4 quads. tw2 15:47 : No signs and/or symptoms were reported regarding the genitourinary system. tw2t 15:47 EENT: No signs and/or symptoms were reported regarding the EENT system. tw2 15:47 Derm: No signs and/or symptoms reported regarding the dermatologic system. tw2 15:47 Musculoskeletal: Range of motion: intact in all extremities, tw2
--- NOTE | 2020-10-12 19:43 | EDPHYS ---
Physician Documentation [facility] Name: Bridgett Gotti Age: 70 yrs Sex: Female : 1950 Arrival Date: 10/12/2020 Time: 14:[address] Private MD: ED Physician Tono Patrick HPI: 10/12 15:07 This 70 yrs old Female presents to ER via Ambulatory with complaints of jmm Dizziness. 15:08 The patient presents with dizziness. Onset: The symptoms/episode began/occurred jmm acutely, 11 hour(s) ago. Modifying factors: The symptoms are alleviated by holding head still, the symptoms are aggravated by movement of head. Associated signs and symptoms: Pertinent positives: ataxia, Pertinent negatives: confusion, focal weakness, head injury, headache, near-syncope, numbness, seizure, shortness of breath. The patient has experienced similar episodes in the past. Historical: - Allergies: 14:41 Sulfa (Sulfonamide Antibiotics); ll1 14:41 Bactrim; ll1 - PMHx: 14:41 Back pain; Depression; Diabetes - NIDDM; Hypertension; Enteritis; Sleep Apnea; ll1 Rheumatoid Arthritis; Lupus; - PSHx: 14:41 right leg skin graft; right leg surgery x 2 with wound care; ll1 - Immunization history:: Flu vaccine is not up to date. - Social history:: Smoking status: Patient denies any tobacco usage or history of. ROS: 15:08 Constitutional: Negative for fever, chills, and weight loss, Cardiovascular: Negative jm for chest pain, palpitations, and edema, Respiratory: Negative for shortness of breath, cough, wheezing, and pleuritic chest pain. 15:08 Neuro: Positive for dizziness. 15:08 All other systems are negative. Exam: 15:05 ECG was reviewed by the Attending Physician. jmm 15:08 Constitutional: This is a well developed, well nourished patient who is awake, alert, jmm and in no acute distress. Head/Face: atraumatic. 15:08 Neck: Trachea midline, Supple Chest/axilla: Normal chest wall appearance and motion. 15:08 Abdomen/GI: Non distended, soft Back: Normal ROM Skin: General appearance color normal MS/ Extremity: Moves all extremities, no obvious deformities appreciated, no edema noted to the lower extremities Psych: Behavior is normal, Mood is normal, Patient is cooperative and pleasant 15:08 Eyes: Extraocular movements: intact throughout, Nystagmus: nystagmus with fast component noted, bilaterally. 15:08 Cardiovascular: Rate: tachycardic, Rhythm: regular. 15:08 Respiratory: the patient does not display signs of respiratory distress, Respirations: normal, Breath sounds: are clear throughout. 15:09 Neuro: Orientation: is normal, Mentation: is normal, Memory: is normal, Cerebellar [facility] function: normal finger to nose testing, heel to hernandez testing is normal. Vital Signs: 14:37 BP 174 / 111; Pulse 113; Resp 17; Temp 98.5; Pulse Ox 96% ; Weight 83.46 kg; Height 5 ll1 ft. 1 in. (154.94 cm); Pain 4/10; 15:14 BP 170 / 115; Pulse 99; Resp 16; Pulse Ox 98% on R/A; tw2 15:48 BP 139 / 70; Pulse 104; Resp 17; Pulse Ox 95% on R/A; tw2 16:48 BP 141 / 80; Pulse 100; Resp 14; Pulse Ox 95% on R/A; tw2 17:52 BP 125 / 76; Pulse 102; Resp 19; Pulse Ox 95% on R/A; tw2 18:43 BP 135 / 78; Pulse 104; Resp 22; Pulse Ox 96% on R/A; tw2 19:50 BP 133 / 75; Pulse 105; Resp 16; Pulse Ox 99% ; rr5 20:25 BP 131 / 70; Pulse 101; Resp 19; Pulse Ox 98% ; rr5 14:37 Body Mass Index 34.77 (83.46 kg, 154.94 cm) ll1 MDM: 14:50 Patient medically screened. [facility] 19:39 Data reviewed: vital signs, nurses notes. Counseling: I had a detailed discussion with [facility] the patient and/or guardian regarding: the historical points, exam findings, and any diagnostic results supporting the discharge/admit diagnosis, lab results, radiology results, the need for outpatient follow up, to return to the emergency department if symptoms worsen or persist or if there are any questions or concerns that arise at home. ED course: Patient is alert and non toxic in appearance in the ED. Symptoms improved with valium. MRI negative for an acute process. Patient states feeling much better. Most likely peripheral vertigo. Patient is otherwise given strict return precautions. Patient understood and agrees with the plan of care. . 10/12 14:56 Order name: Basic Metabolic Panel; Complete Time: 15:58 [facility] 10/12 14:56 Order name: CBC with Diff; Complete Time: 15:21 [facility] 10/12 14:56 Order name: LFT's; Complete Time: 15:58 [facility] 10/12 14:56 Order name: Magnesium; Complete Time: 15:58 [facility] 10/12 14:56 Order name: NT PRO-BNP; Complete Time: 15:58 [facility] 10/12 14:56 Order name: PT-INR; Complete Time: 15:27 [facility] 10/12 14:56 Order name: Troponin (emerg Dept Use Only); Complete Time: 15:58 [facility] 10/12 14:56 Order name: XRAY Chest (1 view); Complete Time: 15:54 [facility] 10/12 14:56 Order name: CT Head Brain wo Cont; Complete Time: 15:54 [facility] 10/12 15:59 Order name: MRI - Brain Wo Cont; Complete Time: 19:39 [facility] 10/12 14:56 Order name: EKG; Complete Time: 14:57 [facility] 10/12 14:56 Order name: Cardiac monitoring; Complete Time: 15:14 [facility] 10/12 14:56 Order name: EKG - Nurse/Tech; Complete Time: 15:14 [facility] 10/12 14:56 Order name: IV Saline Lock; Complete Time: 15:14 [facility] 10/12 14:56 Order name: Labs collected and sent; Complete Time: 15:14 [facility] 10/12 14:56 Order name: O2 Per Protocol; Complete Time: 15:14 [facility] 10/12 14:56 Order name: O2 Sat Monitoring; Complete Time: 15:14 [facility] EC:05 Rate is 109 beats/min. Rhythm is regular. QRS [place] is Normal. MO interval is normal. m QRS interval is normal. QT interval is normal. No Q waves. T waves are Normal. No ST changes noted. Reviewed by me. Administered Medications: 15:08 Drug: Zofran (Ondansetron) 4 mg Route: IVP; Site: left antecubital; tw2 15:53 Follow up: Response: No adverse reaction tw2 15:11 Drug: Valium 5 mg Route: IVP; Site: left antecubital; tw2 15:53 Follow up: Response: No adverse reaction; Marked relief of symptoms tw2 16:09 Drug: Magnesium Sulfate 2 grams Route: IVPB; Infused Over: 2 hrs; Site: left tw2 antecubital; 18:00 Follow up: Response: No adverse reaction; IV Status: Completed infusion; IV Intake: [id number] 16:54 Drug: Valium 5 mg Route: IVP; Site: left antecubital; tw2 17:52 Follow up: Response: No adverse reaction; Marked relief of symptoms tw2 20:01 Drug: Valium 5 mg Route: IVP; Site: left antecubital; rr5 20:25 Follow up: Response: No adverse reaction rr5 Disposition: 10/13 08:30 Co-signature as Attending Physician, Tono Patrick MD I agree with the assessment and kdr plan of care. Disposition: 10/12/20 19:42 Discharged to Home. Impression: Vertigo. - Condition is Stable. - Discharge Instructions: Benign Positional Vertigo, Roland Maneuver Self-Care. - Prescriptions for Valium 5 mg Oral Tablet - take 1 tablet by ORAL route every 8 hours As needed; 20 tablet. - Medication Reconciliation Form, Thank You Letter, Antibiotic Education, Prescription Opioid Use form. - Follow up: Private Physician; When: 2 - 3 days; Reason: Recheck today's complaints, Continuance of care, Re-evaluation by your physician. Follow up: Sandy Carvajal MD; When: 2 - 3 days; Reason: Recheck today's complaints, Continuance of care, Re-evaluation by your physician. Signatures: Dispatcher [employer] EDMS Tono Patrick MD MD kdr Mickail, Joel, PA PA m Stephy Olivera RN RN tw2 Matthew Browning RN RN rr5 Yaron Madrigal RN RN ll1 Corrections: (The following items were deleted from the chart) 10/12 15:10 15:08 Abdomen/GI: Non distended, soft Back: Normal ROM Skin: General appearance color [facility] normal MS/ Extremity: Moves all extremities, no obvious deformities appreciated, no edema noted to the lower extremities Neuro: Awake and alert, normal gait Psych: Behavior is normal, Mood is normal, Patient is cooperative and pleasant [facility] 20:18 19:42 10/12/2020 19:42 Discharged to Home. Impression: Vertigo. Condition is Stable. [facility] Forms are Medication Reconciliation Form, Thank You Letter, Antibiotic Education, Prescription Opioid Use. Follow up: Private Physician; When: 2 - 3 days; Reason: Recheck today's complaints, Continuance of care, Re-evaluation by your physician. [facility] 20:24 20:18 10/12/2020 19:42 Discharged to Home. Impression: Vertigo. Condition is Stable. rr5 Discharge Instructions: Benign Positional Vertigo. Prescriptions for Valium 5 mg Oral Tablet - take 1 tablet by ORAL route every 8 hours As needed; 20 tablet. and Forms are Medication Reconciliation Form, Thank You Letter, Antibiotic Education, Prescription Opioid Use. Follow up: Private Physician; When: 2 - 3 days; Reason: Recheck today's complaints, Continuance of care, Re-evaluation by your physician. Follow up: Sandy Carvajal; When: 2 - 3 days; Reason: Recheck today's complaints, Continuance of care, Re-evaluation by your physician. [facility]
[2020-10-13 04:46] VITALS: TEMP 98.5
[2020-10-13 04:55] VITALS: BP 133/75; O2SAT 99
--- NOTE | 2020-10-14 06:09 | EKG ---
Test Date: 2020-10-12 Test Time: 15:02:33 Harness Rigger: REMA MEASUREMENT RESULTS: Intervals: Rate: 109 GA: 174 QRSD: 130 QT: 404 QTc: 544 [place]: P: 55 GA: 174 QRS: -71 T: 85 INTERPRETIVE STATEMENTS: Sinus tachycardia Possible Left atrial enlargement Right bundle branch block Left anterior fascicular block Bifascicular block Left ventricular hypertrophy with repolarization abnormality Cannot rule out Septal infarct, age undetermined Abnormal ECG Compared to ECG 01/21/2020 03:04:09 Left anterior fascicular block now present Bifascicular block now present Left ventricular hypertrophy now present Early repolarization now present Myocardial infarct finding now present Left-axis deviation no longer present Electronically Signed On 10-14-20 06:03:37 INTERIOR DESIGN PRINCIPAL by Bruce Wallace
== END 2020-10-12 20:24 | disposition home or self-care (01) ==
LOC: ER 14:24
DX: R42 Dizziness and giddiness (principal); I10 Essential (primary) hypertension; E11.9 Type 2 diabetes mellitus without complications; Z88.1 Allergy status to other antibiotic agents; Z88.2 Allergy status to sulfonamides
CPT/HCPCS: 96365; 93005; 85025; 80048; 36415; 83735; 85610; 80076; 84484; 83880; 70450; 71045; 70551; 96375; 99284; 96366; J3360 ×3; J2405

== ENCOUNTER 2021-10-19 14:17 | Emergency (ER) | payer OTHER ==
--- OUTSIDE RECORDS SUMMARY | 2021-10-19 14:20 | XMS REPORT | Continuity of Care Document ---
:1950 Author Organization [facility] t Address [address] [place] [address] Care Team Providers Name Role Phone Doctor Unassigned, Name Attending Clinician Unavailable Conner BAKER Attending Clinician Unavailable Yolis WEN L Attending Clinician Octavia KAMARA Attending Clinician Unavailable Payers Payer Name Policy Type Policy Number Effective Date Expiration Date S ource Problems Condition Condition Condition Status Onset Resolution Last Treating Co mments Source Name Details Category Date Date Treatment Clinician Date Hypertensi Hypertensi Disease Active U nivers on, on, 12-08 ity of uncontroll uncontroll 00:00: [place] [facility] 00 Medical Branch Asymptomat Asymptomat Disease Active U nivers ic ic 12-08 ity of hypertensi [place] ve urgency 00 Al dical Branch Emphysema Emphysema Disease Active Uni vers lung lung 12-08 ity of 00:00: [address] Branch Systemic Systemic Disease Active Unive rs lupus lupus 12-08 [place] of erythemato [place]mat[place] grac[place] graciela 00 Medical Branch Former Former Disease Active Univers smoker, smoker, 1 ity of stopped stopped 00:00: [place] smoking in smoking in 00 Me dical distant distant Branch past past History of History of Disease Active U nivers hysterecto hysterecto 12-08 it y of my my 00:00: [place] [facility] Branch Undiagnose Undiagnose Disease Active Overview : Univers d cardiac d cardiac 12-0813 Grade 3/6 i ty of murmurs murmurs 00:00: harsh [place] 00 systolic Medical murmur Branch noted at right upper intercost al region, may represent aortic stenosis especiall y given her uncontrol led HTN, recommend work up by Cardiolog ist of her choice Former Former Disease Active Univers smoker, smoker, -13 ity of stopped stopped 00:00: [place] smoking in smoking in 00 Me dical distant distant Branch past past Allergies, Adverse Reactions, Alerts Allergy Allergy Status Severity Reaction(s) Onset Inactive Treating Comm ents Source Name Type Date Date Clinician SULFA Drug Active Rash Univers (SULFONA Class 1-13 ity of MIDE 00:00: [place] ANTIBIOT 00 Medical ICS) Branch Sulfa Propensi Active Rash Univers (Sulfona ty to 1-13 ity of mide adverse 00:00: [place] Antibiot reaction 00 Medica l ics) s Branch Social History Social Habit Start Date Stop Date Quantity Comments Source Alcohol intake 2020-03-08 2020-03-08 Current drinker Unive rsity of 00:00:00 00:00:00 of alcohol Formerly [facility] (finding) Branch Tobacco use and 2020-03-08 2020-03-08 Never used Universit y of exposure 00:00:00 00:00:00 [facility] History of 1998-11-26 Cigarette Smoker Universi ty of tobacco use 00:00:00 [facility] Sex Ass[birth year] Universit y of 00:00:00 00:00:00 [facility] Smoking Status Start Date Stop Date Source Former smoker 2020-03-08 00:00:00 2020-03-08 00:00:00 Universi ty of [facility] Medications Ordered Filled Start Stop Current Ordering Indication Dosage Frequency Signature Comments Components Source Medication Medication Date Date Medication? Clinician (SIG) Name Name ALBUTEROL Yes Inhale. Unive rs INHALE 12-08 ity of 16:20: [address] ALBUTEROL Yes Inhale. Unive rs INHALE 12-08 ity of 16:20: [address] ALBUTEROL Yes Inhale. Unive rs INHALE 12-08 ity of 16:20: [address] ALBUTEROL Yes Inhale. Unive rs INHALE 1-13 ity of 16:20: [address] ALBUTEROL 0 Yes Inhale. Unive rs INHALE 1-13 ity of 16:20: [address] LISINOPRIL Yes 2{tbl} Take 2 Uni vers ORAL 1-13 Tabs by ity of 16:16: mouth. [address] AMLODIPINE Yes 1{tbl} Take 1 Tab Univers BESYLATE 1-13 by mouth. ity of (NORVASC 16:16: [place] ORAL) [address] [place] [address] CLONIDINE Yes Take by Univ ers HCL ORAL 1-13 mouth. ity of 16:16: [address] CITALOPRAM Yes 1{tbl} Take 1 Tab Univers HYDROBROMID 1-13 by mouth. ity of E (CELEXA 16:16: [place] ORAL) [address] [place] [address] LISINOPRIL Yes 2{tbl} Take 2 Uni vers ORAL 1-13 Tabs by ity of 16:16: mouth. [address] AMLODIPINE Yes 1{tbl} Take 1 Tab Univers BESYLATE 1-13 by mouth. ity of (NORVASC 16:16: [place] ORAL) [address] [place] [address] CLONIDINE Yes Take by Univ ers HCL ORAL 1-13 mouth. ity of 16:16: [address] CITALOPRAM Yes 1{tbl} Take 1 Tab Univers HYDROBROMID 1-13 by mouth. ity of E (CELEXA 16:16: [place] ORAL) [address] [place] [address] LISINOPRIL Yes 2{tbl} Take 2 Uni vers ORAL 1-13 Tabs by ity of 16:16: mouth. [address] AMLODIPINE Yes 1{tbl} Take 1 Tab Univers BESYLATE 1-13 by mouth. ity of (NORVASC 16:16: [place] ORAL) [address] [place] [address] CLONIDINE Yes Take by Univ ers HCL ORAL 1-13 mouth. ity of 16:16: [address] CITALOPRAM Yes 1{tbl} Take 1 Tab Univers HYDROBROMID 1-13 by mouth. ity of E (CELEXA 16:16: [place] ORAL) [address] [place] [address] LISINOPRIL Yes 2{tbl} Take 2 Uni vers ORAL 1-13 Tabs by ity of 16:16: mouth. [address] AMLODIPINE Yes 1{tbl} Take 1 Tab Univers BESYLATE 1-13 by mouth. ity of (NORVASC 16:16: [place] ORAL) [address] [place] [address] CLONIDINE Yes Take by Univ ers HCL ORAL 1-13 mouth. ity of 16:16: [address] CITALOPRAM Yes 1{tbl} Take 1 Tab Univers HYDROBROMID 1-13 by mouth. ity of E (CELEXA 16:16: [place] ORAL) [address] [place] [address] LISINOPRIL Yes 2{tbl} Take 2 Uni vers ORAL 1-13 Tabs by ity of 16:16: mouth. [address] AMLODIPINE Yes 1{tbl} Take 1 Tab Univers BESYLATE 1-13 by mouth. ity of (NORVASC 16:16: [place] ORAL) [address] [place] [address] CLONIDINE Yes Take by Univ ers HCL ORAL 1-13 mouth. ity of 16:16: [address] CITALOPRAM Yes 1{tbl} Take 1 Tab Univers HYDROBROMID 1-13 by mouth. ity of E (CELEXA 16:16: [place] ORAL) [address] [place] [address] Immunizations Ordered Filled Immunization Date Status Comments [facility] e Immunization Name Name SARS-COV-2 COVID-19 2021-03-04 Completed Unive rsity of PFIZER VACCINE 00:00:00 [facility] SARS-COV-2 COVID-19 2021-03-04 Completed Unive rsity of PFIZER VACCINE 00:00:00 [facility] SARS-COV-2 COVID-19 2021-02-11 Completed Unive rsity of PFIZER VACCINE 00:00:00 [facility] SARS-COV-2 COVID-19 2021-02-11 Completed Unive rsity of PFIZER VACCINE 00:00:00 [facility] Vital Signs Vital Name Observation Time Observation Value Comments Source Systolic blood 2020-03-08 19:57:00 188 mm[Hg] Univer sity of [facility] Diastolic blood 2020-03-08 19:57:00 102 mm[Hg] Unive rsity of [facility] Heart rate 2020-03-08 19:57:00 76 /min Universi ty of [facility] Body height 2020-03-08 19:54:00 152.4 cm Universi ty of [facility] Body weight 2020-03-08 19:54:00 72.576 kg Universi ty of [facility] BMI 2020-03-08 19:54:00 31.25 kg/m2 Universi ty of [facility] Systolic blood 2020-03-08 19:57:00 188 mm[Hg] Univer sity of [facility] [place] [facility] Diastolic blood 2020-03-08 19:57:00 102 mm[Hg] Unive rsity of [facility] Heart rate 2020-03-08 19:57:00 76 /min Universi ty of [facility] Body height 2020-03-08 19:54:00 152.4 cm Universi ty of [facility] Body weight 2020-03-08 19:54:00 72.576 kg Universi ty of [facility] BMI 2020-03-08 19:54:00 31.25 kg/m2 Universi ty [facility] Procedures Procedure Date / Time Performed Performing Clinician [facility] e ASSIGNMENT OF BENEFITS 2020-03-08 19:43:50 Doctor Unassigned, No [facility] Encounters Start End Encounter Admission Attending Care Care Encounter Source Date/Time Date/Time Type Type Clinicians Facility Department ID 2021-04-04 2021-04-04 Letter Doctor THORNTON [id number] Univers 00:00:00 00:00:00 (Out) UnassignedSAGRARIO [id number] ity of [employer] [facility] [id number] Carlos as [phone] [address] 2021-04-04 2021-04-04 Letter Doctor THORNTON [id number] Univers 00:00:00 00:00:00 (Out) Unassigned, [place] [id number] ity of [employer] [facility] [id number] Carlos as [phone] [address] 2021-03-04 2021-03-04 Outpatient Adam BAKER [facility] [id number] Univers 09:10:00 09:10:00 MARINA itfrancisco [facility] 2021-02-11 2021-02-11 Outpatient [facility] [id number] Univers 09:10:00 09:10:00 itfrancisco [facility] 2020-03-08 2020-03-08 [facility] [id number] 14:45:08 15:08:51 Visit Juan F [facility] [id number] Surgical [id number] Specialti [id number] [address] 2020-03-08 2020-03-08 [facility] [id number] Univers 14:45:08 15:08:51 Visit Juan F [facility] [id number] it y of Surgical [id number] Carlos as Specialti [id number] Al dical [address] [facility] 2020-03-08 2020-03-08 [id number] Univers 14:30:00 14:30:00 JUAN F cali [facility] 2020-03-08 2020-03-08 Orders Doctor NORBERTO [id number] Univers 00:00:00 00:00:00 Only Unassigned, [place] [id number] ity of [facility] [id number] Carlos as [id number] [address] Results This patient has no known results.
[2021-10-19 15:45] LABS: Absolute Lymphocytes (CBC) 1.7 K/uL (0.7-4.9); Basophils % 1.4 % (0-1.3); Hematocrit 41.8 % (36.0-45.0); Lymphocytes % 25.6 % (15.3-44.8); MPV 9.4 fL (7.6-11.3); RBC Red Blood Cell Count 4.52 M/uL (3.86-4.86)
[2021-10-19] MEDS ORDERED: cloNIDine HCL 0.1 MG TAB ONE (15:45)
[2021-10-19] MEDS ORDERED: MORPHINE 4 MG/ML SYR ONE (15:46)
[2021-10-19] MEDS ORDERED: NA CHLORIDE 0.9% 1,000 ML ONE (15:46)
[2021-10-19 15:50] LABS: Protime INR 1.07
[2021-10-19 16:03] LABS: Potassium 4.2 mmol/L (3.5-5.1)
--- NOTE | 2021-10-19 16:45 | RAD REPORT ---
EXAM DESCRIPTION: CT - Head Brain Wo Cont - 10/19/2021 4:31 pm CLINICAL HISTORY: HEADACHE Headache, drowsiness COMPARISON: Head angio dated 10/19/2021; Head Brain Wo Cont dated 10/12/2020; Chest Abdomen Pelvis W Cont dated 10/19/2021 TECHNIQUE: All CT scans are performed using dose optimization technique as appropriate and may inclu de automated exposure control or mA/KV adjustment according to patient size. FINDINGS: No intracranial hemorrhage, hydrocephalus or extra-axial fluid collection.Mild chronic sheela rovascular ischemic changes right periventricular region anteriorly.No areas of brain edema or eviden ce of midline shift. Vertebral atherosclerosis. 19 mm mucous retention cyst versus polyp right maxillary antrum. The paranasal sinuses and mastoids a re otherwise clear. The calvarium is intact. IMPRESSION: No acute intracranial abnormality.
--- NOTE | 2021-10-19 16:52 | RAD REPORT ---
EXAM DESCRIPTION: CT - Head angio - 10/19/2021 4:31 pm CLINICAL HISTORY: HTN;Headache Headache, drowsiness COMPARISON: Head Brain Wo Cont dated 10/12/2020; Head angio dated 05/13/2020 TECHNIQUE: CT angiography of the head was performed with MIPs. All CT scans are performed using dose optimization technique as appropriate and may include automated exposure control or mA/KV adjustment according to patient size. FINDINGS: No evidence of aneurysm is detected. No flow-limiting stenosis or vascular malformation id entified. Antegrade flow is seen in the vertebral arteries. Focal hard plaque is seen involving the right verte bral artery resulting in approximate 50% flow restriction. The left vertebral artery demonstrates leona d plaque resulting approximate 70-80% flow restriction. The visualized dural venous sinuses are patent. 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 Elsewhere, no significant flow abnormality detected.
--- NOTE | 2021-10-19 16:57 | RAD REPORT ---
EXAM DESCRIPTION: CT - Chest Abdomen Pelvis W Cont - 10/19/2021 4:31 pm CLINICAL HISTORY: Chest and abdomen pain. HTN, mid/low back pain COMPARISON: Chest Abdomen Pelvis W Cont dated 01/21/2020 TECHNIQUE: Approximately 100 mL nonionic IV contrast was administered to the patient. All CT scans are performed using dose optimization technique as appropriate and may include automated exposure control or mA/KV adjustment according to patient size. FINDINGS: The lungs are clear.Aortic atherosclerosis.No pleural or pericardial effusion.No intrathor acic adenopathy. Mild diffuse fatty liver is present. Probable cholelithiasis. The spleen, pancreas, adrenal glands an d kidneys are within normal limits. No bowel obstruction, free air, free fluid or abscess. The appendix is not identified as a discrete s tructure, however, no secondary findings of appendicitis are identified. No pathologic lymphadenopa thy in the abdomen or pelvis. Degenerative changes are present in the lumbar spine most notable at L2-3 and L5-S1. IMPRESSION: Diffuse fatty liver. Cholelithiasis likely. Mild lumbar spondylosis.
--- NOTE | 2021-10-19 17:21 | ER ---
Nurse's Notes [facility] Name: Bridgett Gotti Age: 71 yrs Sex: Female : 1950 Arrival Date: 10/19/2021 Time: 14:23 Bed 3 Private MD: Diagnosis: Headache;Acute stress reaction;Essential (primary) hypertension Presentation: 10/19 14:42 Chief complaint: Patient states: My lower back hurts, CLEMENTINA ear pain, headache X 2 weeks, ld1 severe anxiety due to mother passing away 2 weeks ago. Coronavirus screen: At this time, the client does not indicate any symptoms associated with coronavirus-19. Ebola Screen: No symptoms or risks identified at this time. Initial Sepsis Screen: Does the patient meet any 2 criteria? No. Patient's initial sepsis screen is negative. Does the patient have a suspected source of infection? No. Patient's initial sepsis screen is negative. Risk Assessment: Do you want to hurt yourself or someone else? Patient reports no desire to harm self or others. Onset of symptoms was October 19, 2021. 14:42 Method Of Arrival: Ambulatory ld1 14:42 Acuity: LASHONDA 3 ld1 Triage Assessment: 14:44 Headache History: The patient has had previous headaches and this one is similar to ld1 previous episodes. General: Appears in no apparent distress. uncomfortable, Behavior is cooperative, anxious. Pain: Complains of pain in low back area Pain does not radiate. Pain currently is 9 out of 10 on a pain scale. Quality of pain is described as throbbing, Pain began gradually, Is continuous. EENT: No signs and/or symptoms were reported regarding the EENT system. Neuro: Level of Consciousness is awake, alert, obeys commands, Oriented to person, place, time, situation, Appropriate for age. Cardiovascular: Capillary refill < 3 seconds Patient's skin is warm and dry. Respiratory: Airway is patent Respiratory effort is even, unlabored, Respiratory pattern is regular, symmetrical. GI: Abdomen is round non-distended. : No signs and/or symptoms were reported regarding the genitourinary system. Derm: No signs and/or symptoms reported regarding the dermatologic system. Musculoskeletal: Reports pain in back. Historical: - Allergies: 14:44 Bactrim; ld1 14:44 Sulfa (Sulfonamide Antibiotics); ld1 - Home Meds: 14:44 Klonopin 1 mg Oral tab 1 tab TID prn for PRN for anxiety [Active]; Lactobacillus ld1 acidophilus Oral cap daily [Active]; Lasix 20 mg Oral tab 1 tab once daily [Active]; lisinopril 20 mg Oral tab 1 tab once daily [Active]; melatonin 10 mg Oral tab nightly [Active]; metformin 1,000 mg Oral tab 1 tab 2 times per day [Active]; metoprolol tartrate 100 mg Oral tab 1 tab once daily [Active]; - PMHx: 14:44 Back pain; Depression; Diabetes - NIDDM; Enteritis; Hypertension; Lupus; Rheumatoid ld1 Arthritis; Sleep Apnea; - Immunization history:: Adult Immunizations up to date, Client reports receiving the 2nd dose of the Covid vaccine. - Social history:: Smoking status: Patient/guardian denies using tobacco, the patient reports quitting approximately 20 years ago, Patient uses alcohol, on a daily basis. Patient/guardian denies using street drugs. - Family history:: not pertinent. - Hospitalizations: : No recent hospitalization is reported. Screenin:01 Abuse screen: Denies threats or abuse. Nutritional screening: No deficits noted. tw2 Tuberculosis screening: No symptoms or risk factors identified. Fall Risk None identified. Assessment: 15:04 Reassessment: provider at bedside at this time. tw2 17:07 Reassessment: No changes from previously documented assessment. Patient and/or family tw2 updated on plan of care and expected duration. Pain level reassessed. Patient states symptoms have not improved. 17:52 Reassessment: Patient appears in no apparent distress at this time. No changes from tw2 previously documented assessment. Patient and/or family updated on plan of care and expected duration. Pain level reassessed. Vital Signs: 14:42 BP 208 / 171; Pulse 113; Resp 22; Temp 98.3; Pulse Ox 100% on R/A; Weight 83.91 kg; ld1 Height 5 ft. 2 in. (157.48 cm); Pain 8/10; 15:17 BP 210 / 154 (man/); ll1 17:07 BP 182 / 95; Pulse 98; Resp 17; Pulse Ox 97% on R/A; tw2 14:42 Body Mass Index 33.83 (83.91 kg, 157.48 cm) ld1 Hussein Coma Score: 17:17 Eye Response: spontaneous(4). Verbal Response: oriented(5). Motor Response: obeys rn commands(6). Total: 15. ED Course: 14:23 Patient arrived in ED. mr 14:42 Arm band placed on right wrist. ld1 14:44 Triage completed. ld1 14:47 Placed in gown. Bed in low position. Call light in reach. geospatial systems integrator on. Pulse ox tw2 on. NIBP on. 15:02 Zhao Madera MD is Attending Physician. rn 15:40 Stephy Olivera RN is Primary Nurse. tw2 15:50 Inserted saline lock: 20 gauge in right antecubital area, using aseptic technique. tw2 ,using aseptic technique. ILAN Najera Blood collected. 16:[address] jh6 16:31 CT Head Brain wo Cont In Process Unspecified. EDMS 16:31 CT Head Angio In Process Unspecified. EDMS 16:31 Chest Abdomen Pelvis W Cont In Process Unspecified. EDMS 17:52 No provider procedures requiring assistance completed. IV discontinued, intact, tw2 bleeding controlled, No redness/swelling at site. Pressure dressing applied. Administered Medications: 15:58 Drug: NS 0.9% 1000 ml Route: IV; Rate: 1000 ml; Site: right antecubital; tw2 17:42 Follow up: Response: No adverse reaction; IV Status: Completed infusion; IV Intake: tw2 1000ml 16:00 Drug: morphine 4 mg {Note: RASS 0.} Route: IVP; Site: right antecubital; tw2 17:42 Follow up: Response: No adverse reaction; Pain is decreased; RASS: Alert and Calm (0) tw2 16:00 Drug: cloNIDine 0.2 mg Route: PO; tw2 17:41 Follow up: Response: No adverse reaction; Blood pressure is lowered tw2 Intake: 17:42 IV: 1000ml; Total: 1000ml. tw2 Outcome: 17:21 Discharge ordered by . rn 17:52 Patient left the ED. tw2 17:52 Discharged to home ambulatory. tw2 17:52 Condition: stable 17:52 Discharge instructions given to patient, Instructed on discharge instructions, Demonstrated understanding of instructions, follow-up care. Signatures: Dispatcher [employer] [facility] Tasia Montiel Zhao Madera MD MD rn Wise, Tara, RN RN tw2 Yaron Madrigal RN RN 1 Mei Sheppard RN RN ld1 Kiera Duong RN RN jh6 Corrections: (The following items were deleted from the chart) 14:47 14:42 Pulse 113bpm; Resp 22bpm; Pulse Ox 100% RA; 83.91 kg; Height 5 ft. 2 in.; BMI: ld1 33.8; Pain 8/10; ld1
--- NOTE | 2021-10-19 17:21 | EDPHYS ---
Physician Documentation [facility] Name: Bridgett Gotti Age: 71 yrs Sex: Female : 1950 Arrival Date: 10/19/2021 Time: 14:23 Bed 3 Private MD: ED Physician Zhao Madera HPI: 10/19 15:28 This 71 yrs old Female presents to ER via Ambulatory with complaints of rn Headache, Back Pain. 15:28 The patient complains of pain to the top of head and forehead. The patient describes rn the headache as aching, throbbing. Onset: The symptoms/episode began/occurred 3 day(s) ago. Associated signs and symptoms: Pertinent negatives: altered mental status, fever, neck stiffness, paresthesias, Photophobia rash, vision changes, vision loss, vomiting. Severity of symptoms: At its worst the pain was moderate, in the emergency department the pain is unchanged. Headache History: Denies prior headaches. The symptoms are alleviated by nothing. the symptoms are aggravated by nothing. The patient has not experienced similar symptoms in the past. The patient has not recently seen a physician. Patient reports headache and low back pain for 3 days, no head injury, reports chronic vertigo and recurrent falls but does not think a fall caused these pains. Reports mother recently and has been having a lot of problems coping. Not taking her blood pressure medication. Denies any focal neurological deficits. No chest pain or shortness of breath or abdominal pain. No vomiting or diarrhea. No fever. Reports feels like is going to have a breakdown emotionally.. Historical: - Allergies: 14:44 Bactrim; ld1 14:44 Sulfa (Sulfonamide Antibiotics); ld1 - Home Meds: 14:44 Klonopin 1 mg Oral tab 1 tab TID prn for PRN for anxiety [Active]; Lactobacillus ld1 acidophilus Oral cap daily [Active]; Lasix 20 mg Oral tab 1 tab once daily [Active]; lisinopril 20 mg Oral tab 1 tab once daily [Active]; melatonin 10 mg Oral tab nightly [Active]; metformin 1,000 mg Oral tab 1 tab 2 times per day [Active]; metoprolol tartrate 100 mg Oral tab 1 tab once daily [Active]; - PMHx: 14:44 Back pain; Depression; Diabetes - NIDDM; Enteritis; Hypertension; Lupus; Rheumatoid ld1 Arthritis; Sleep Apnea; - Immunization history:: Adult Immunizations up to date, Client reports receiving the 2nd dose of the Covid vaccine. - Social history:: Smoking status: Patient/guardian denies using tobacco, the patient reports quitting approximately 20 years ago, Patient uses alcohol, on a daily basis. Patient/guardian denies using street drugs. - Family history:: not pertinent. - Hospitalizations: : No recent hospitalization is reported. ROS: 15:28 Constitutional: Negative for fever, chills, and weight loss, Eyes: Negative for injury, rn pain, redness, and discharge, Neck: Negative for injury, pain, and swelling, Cardiovascular: Negative for chest pain, palpitations, and edema, Respiratory: Negative for shortness of breath, cough, wheezing, and pleuritic chest pain, Abdomen/GI: Negative for abdominal pain, nausea, vomiting, diarrhea, and constipation, Back: Negative for injury : Negative for injury, bleeding, discharge, and swelling, MS/Extremity: Negative for injury and deformity, Skin: Negative for injury, rash, and discoloration, Neuro: Negative for weakness, numbness, tingling, and seizure. Exam: 15:28 Constitutional: This is a well developed, well nourished patient who is awake, alert, rn tearful Head/Face: Normocephalic, atraumatic. Eyes: Periorbital areas with no swelling, redness, or edema. ENT: Dry mucous membranes Neck: Trachea midline, no masses palpated. Supple, full range of motion without nuchal rigidity, or vertebral point tenderness. No Meningismus. Cardiovascular: Tachycardic, regular. NO pulse deficits. Respiratory: Mild tachypnea, worse when crying and gets emotional. Otherwise speaking full sentences. Abdomen/GI: Soft, non-tender Back: No spinal tenderness. No costovertebral tenderness. Skin: Warm, dry MS/ Extremity: Pulses equal, no cyanosis. Neuro: Awake and alert, GCS 15, oriented to person, place, time, and situation. Cranial nerves II-XII grossly intact. Motor strength 5/5 in all extremities. Sensory grossly intact. Vital Signs: 14:42 BP 208 / 171; Pulse 113; Resp 22; Temp 98.3; Pulse Ox 100% on R/A; Weight 83.91 kg; ld1 Height 5 ft. 2 in. (157.48 cm); Pain 8/10; 15:17 BP 210 / 154 (man/); ll1 17:07 BP 182 / 95; Pulse 98; Resp 17; Pulse Ox 97% on R/A; tw2 14:42 Body Mass Index 33.83 (83.91 kg, 157.48 cm) ld1 [place] Coma Score: 17:17 Eye Response: spontaneous(4). Verbal Response: oriented(5). Motor Response: obeys rn commands(6). Total: 15. MDM: 15:03 Patient medically screened. rn 17:17 Differential diagnosis: hypertensive headache, intracerebral hemorrhage, migraine, rn neoplasm, subarachnoid bleed, tension headache, vasomotor headache. Data reviewed: vital signs, nurses notes, lab test result(s), radiologic studies, CT scan, and as a result, I will discharge patient. Data interpreted: overnight associate: rate is 98 beats/min, rhythm is normal sinus rhythm, regular, with no ectopy, Interpretation: normal rate, normal rhythm, Pulse oximetry: on room air is 97 %. Interpretation: normal. Counseling: I had a detailed discussion with the patient and/or guardian regarding: the historical points, exam findings, and any diagnostic results supporting the discharge/admit diagnosis, lab results, radiology results, the need for outpatient follow up, to return to the emergency department if symptoms worsen or persist or if there are any questions or concerns that arise at home. Response to treatment: the patient's symptoms have markedly improved after treatment, the patient's condition has returned to base line, the patient is now symptom free, and as a result, I will discharge patient. Special discussion: I discussed with the patient/guardian in detail that at this point there is no indication for admission to the hospital. It is understood, however, that if the symptoms persist or worsen the patient needs to return immediately for re-evaluation. Based on the history and exam findings, there is no indication for further emergent testing or inpatient evaluation. I discussed with the patient/guardian the need to see the primary care provider for further evaluation of the symptoms. ED course: Patient markedly improved. Blood pressure down to 182/95. CT angiogram of the head without acute findings. Shows atherosclerosis the patient knows about. Has been told before that has flow problems to the brain and gets it serially checked. CT chest abdomen pelvis without acute findings such as aneurysm or dissection explaining low back pain. Headache markedly improved. Still normal neuro exam. Will DC home with return precautions and needs to take blood pressure medication more regularly.. 10/19 15:11 Order name: CBC with Diff; Complete Time: 16:08 rn 10/19 15:11 Order name: Basic Metabolic Panel; Complete Time: 16:08 rn 10/19 15:11 Order name: CT Head Brain wo Cont; Complete Time: 17:13 rn 10/19 15:11 Order name: CT Head Angio; Complete Time: 17:13 rn 10/19 15:11 Order name: Protime (+inr); Complete Time: 16:08 rn 10/19 15:11 Order name: Ptt, Activated; Complete Time: 16: rn 10/19 15:11 Order name: IV Start; Complete Time: 17:43 rn 10/19 15:25 Order name: Chest Abdomen Pelvis W Cont; Complete Time: 17:13 EDMS Administered Medications: 15:58 Drug: NS 0.9% 1000 ml Route: IV; Rate: 1000 ml; Site: right antecubital; tw2 17:42 Follow up: Response: No adverse reaction; IV Status: Completed infusion; IV Intake: tw2 1000ml 16:00 Drug: morphine 4 mg {Note: RASS 0.} Route: IVP; Site: right antecubital; tw2 17:42 Follow up: Response: No adverse reaction; Pain is decreased; RASS: Alert and Calm (0) tw2 16:00 Drug: cloNIDine 0.2 mg Route: PO; tw2 17:41 Follow up: Response: No adverse reaction; Blood pressure is lowered tw2 Disposition Summary: 10/19/21 17:21 Discharge Ordered Location: Home rn Problem: new rn Symptoms: have improved rn Condition: Stable rn Diagnosis - Headache rn - Acute stress reaction rn - Essential (primary) hypertension rn Followup: rn - With: Private Physician - When: As needed - Reason: Recheck today's complaints, Re-evaluation by your physician Discharge Instructions: - Discharge Summary Sheet rn - General Headache Without Cause rn - Hypertension, Adult rn Forms: - Medication Reconciliation Form rn - Thank You Letter rn - Antibiotic airborne operations manager - Prescription Opioid Use rn Signatures: Dispatcher [employer] EDMS Zhao Madera MD MD rn Wise, Tara, RN RN tw2 Mei Sheppard RN RN ld1 Corrections: (The following items were deleted from the chart) 15:25 15:11 Angio Aorta For Dissection+CT.RAD.ATILIOZ ordered. EDMS EDMS 15:33 15:28 Constitutional: This is a well developed, well nourished patient who is awake, rn alert, tearful Head/Face: Normocephalic, atraumatic. Eyes: Periorbital areas with no swelling, redness, or edema. ENT: Dry mucous membranes Neck: Trachea midline, no masses palpated. Supple, full range of motion without nuchal rigidity, or vertebral point tenderness. No Meningismus. Cardiovascular: Tachycardic, regular. NO pulse deficits. Respiratory: Mild tachypnea, worse when crying and gets emotional. Otherwise speaking full sentences. Abdomen/GI: Soft, non-tender Skin: Warm, dry MS/ Extremity: Pulses equal, no cyanosis. Neuro: Awake and alert, GCS 15, oriented to person, place, time, and situation. Cranial nerves II-XII grossly intact. Motor strength 5/5 in all extremities. Sensory grossly intact. rn
[2021-10-19 18:12] VITALS: TEMP 98.3
[2021-10-19 18:14] VITALS: BP 182/95; O2SAT 97
== END 2021-10-19 17:52 | disposition home or self-care (01) ==
LOC: ER 14:17
DX: F43.0 Acute stress reaction (principal); I10 Essential (primary) hypertension; E11.9 Type 2 diabetes mellitus without complications; Z88.1 Allergy status to other antibiotic agents
CPT/HCPCS: 96361; 93005; 85025; 80048; 36415; 85610; 85730; 70450; 71260; 70496; 74177; 96374; 99285; Q9967; J7030

== ENCOUNTER 2021-11-03 19:29 | Emergency (ER) | payer OTHER ==
--- OUTSIDE RECORDS SUMMARY | 2021-11-03 19:32 | XMS REPORT | Continuity of Care Document ---
:1950 Author Organization [facility] t Address [address] [place] [address] Care Team Providers Name Role Phone Doctor [...] [place] ve [place] ve urgency 00 Mt dical Branch Emphysema Emphysema Disease Active Uni vers lung lung 12-08 ity of 00:00: [address] Branch Systemic Systemic Disease Active Unive rs lupus lupus 12-08 [place]y of erythemato [place]mato [place] graciela graciela 00 Medical Branch Former Former Disease Active Univers smoker, smoker, 113 ity of stopped stopped 00:00: [place] smoking in smoking in 00 Me dical distant distant Branch past past History of History of Disease Active U nivers hysterecto hysterecto 12-08 it y of my my 00:00: [place] [facility] Branch Undiagnose Undiagnose Disease Active Overview [...] smoker, -13 ity of stopped stopped 00:00: [place] smoking in smoking in 00 Me dical [...] Unive rsity of 00:00:00 00:00:00 of alcohol [facility] (finding) Branch Tobacco use and 2020-03-08 2020-03-08 Never used Universit y of exposure 00:00:00 00:00:00 [facility] History of 1998-11-26 Cigarette Smoker Universi ty of tobacco use 00:00:00 [facility] Sex Assigned At [birth year] Universit y of 00:00:00 00:00:00 [facility] Smoking Status Start Date Stop Date Source Former smoker 2020-03-08 00:00:00 2020-03-08 00:00:00 Universi ty of [facility] Medications Ordered Filled Start Stop Current Ordering Indication Dosage Frequency Signature Comments Components Source Medication Medication Date Date Medication? Clinician (SIG) Name Name ALBUTEROL Yes Inhale. Unive rs INHALE 12-08 ity of 16:20: [address] ALBUTEROL Yes Inhale. Unive rs INHALE 12-08 ity of 16:20: [address] ALBUTEROL Yes Inhale. Unive rs INHALE 12-08 ity of 16:20: [address] ALBUTEROL Yes Inhale. Unive rs INHALE 1-13 ity of 16:20: [address] ALBUTEROL 0 Yes Inhale. Unive rs INHALE 1-13 ity of 16:20: [address] LISINOPRIL Yes 2{tbl} Take 2 Uni vers ORAL 1-13 Tabs by ity of 16:16: mouth. [address] AMLODIPINE Yes 1{tbl} Take 1 Tab Univers BESYLATE 1-13 by mouth. ity of (NORVASC 16:16: [place] ORAL) [address] [place] [address] CLONIDINE Yes Take by Univ ers HCL ORAL 1-13 mouth. ity of 16:16: [address] CITALOPRAM Yes 1{tbl} Take 1 Tab Univers HYDROBROMID 1-13 by mouth. ity of E (CELEXA 16:16: [place] ORAL) [address] [place] [address] LISINOPRIL Yes 2{tbl} Take 2 Uni vers ORAL 1-13 Tabs by ity of 16:16: mouth. [address] AMLODIPINE Yes 1{tbl} Take 1 Tab Univers BESYLATE 1-13 by mouth. ity of (NORVASC 16:16: [place] ORAL) [address] [place] [address] CLONIDINE Yes Take by Univ ers HCL ORAL 1-13 mouth. ity of 16:16: [address] CITALOPRAM Yes 1{tbl} Take 1 Tab Univers HYDROBROMID 1-13 by mouth. ity of E (CELEXA 16:16: [place] ORAL) [address] [place] [address] LISINOPRIL Yes 2{tbl} Take 2 Uni vers ORAL 1-13 Tabs by ity of 16:16: mouth. [address] AMLODIPINE Yes 1{tbl} Take 1 Tab Univers BESYLATE 1-13 by mouth. ity of (NORVASC 16:16: [place] ORAL) [address] [place] [address] CLONIDINE Yes Take by Univ ers HCL ORAL 1-13 mouth. ity of 16:16: [address] CITALOPRAM Yes 1{tbl} Take 1 Tab Univers HYDROBROMID 1-13 by mouth. ity of E (CELEXA 16:16: [place] ORAL) [address] [place] [address] LISINOPRIL Yes 2{tbl} Take 2 Uni vers ORAL 1-13 Tabs by ity of 16:16: mouth. [address] AMLODIPINE Yes 1{tbl} Take 1 Tab Univers BESYLATE 1-13 by mouth. ity of (NORVASC 16:16: [place] ORAL) [address] [place] [address] CLONIDINE Yes Take by Univ ers HCL ORAL 1-13 mouth. ity of 16:16: [address] CITALOPRAM Yes 1{tbl} Take 1 Tab Univers HYDROBROMID 1-13 by mouth. ity of E (CELEXA 16:16: [place] ORAL) [address] [place] [address] LISINOPRIL Yes 2{tbl} Take 2 Uni vers ORAL 1-13 Tabs by ity of 16:16: mouth. [address] AMLODIPINE Yes 1{tbl} Take 1 Tab Univers BESYLATE 1-13 by mouth. ity of (NORVASC 16:16: [place] ORAL) [address] [place] [address] CLONIDINE Yes Take by Univ ers HCL ORAL 1-13 mouth. ity of 16:16: [address] CITALOPRAM Yes 1{tbl} Take 1 Tab Univers HYDROBROMID 1-13 by mouth. ity of E (CELEXA 16:16: [place] ORAL) [address] [place] [address] Immunizations Ordered Filled Immunization Date Status Comments [facility] e Immunization Name Name SARS-COV-2 COVID-19 2021-03-04 Completed Unive rsity of PFIZER VACCINE 00:00:00 [facility] SARS-COV-2 COVID-19 2021-03-04 Completed Unive rsity of PFIZER VACCINE 00:00:00 [facility] SARS-COV-2 COVID-19 2021-02-11 Completed Unive rsity of PFIZER VACCINE 00:00:00 [facility] SARS-COV-2 COVID-19 2021-02-11 Completed Unive rsity of PFIZER VACCINE 00:00:00 [facility] Vital Signs Vital Name Observation Time Observation Value Comments Source Systolic blood 2020-03-08 19:57:00 188 mm[Hg] Univer sity of [facility] Diastolic blood 2020-03-08 19:57:00 102 mm[Hg] Unive rsity of [facility] Heart rate 2020-03-08 19:57:00 76 /min Universi ty of [facility] Body height 2020-03-08 19:54:00 152.4 cm Universi ty of [facility] Body weight 2020-03-08 19:54:00 72.576 kg Universi ty of [facility] BMI 2020-03-08 19:54:00 31.25 kg/m2 Universi ty of [facility] Systolic blood 2020-03-08 19:57:00 188 mm[Hg] Univer sity of [facility] Branch Diastolic blood 2020-03-08 19:57:00 102 mm[Hg] Unive rsity of [facility] Heart rate 2020-03-08 19:57:00 76 /min Universi ty of [facility] Body height 2020-03-08 19:54:00 152.4 cm Universi ty of [facility] Body weight 2020-03-08 19:54:00 72.576 kg Universi ty of [facility] BMI 2020-03-08 19:54:00 31.25 kg/m2 Universi ty [facility] Procedures Procedure Date / Time Performed Performing Clinician [facility] e ASSIGNMENT OF BENEFITS 2020-03-08 19:43:50 Doctor Unassigned, No [facility] Encounters Start End Encounter Admission Attending Care Care Encounter Source Date/Time Date/Time Type Type Clinicians Facility Department ID 2021-04-04 2021-04-04 Letter Doctor THORNTON [id number] Univers 00:00:00 00:00:00 (Out) UnassignedSAGRARIO [id number] ity of [place] [facility] [id number] Carlos as [id number] [address] 2021-04-04 2021-04-04 Letter Doctor THORNTON [id number] Univers 00:00:00 00:00:00 (Out) Unassigned, [place] [id number] ity of [place] [facility] [id number] Carlos as [id number] [address] 2021-03-04 2021-03-04 Outpatient Adam BAKER [facility] [id number] Univers 09:10:00 09:10:[address] [facility] 2021-02-11 2021-02-11 Outpatient [facility] [id number] Univers 09:10:00 09:10:[address] [facility] 2020-03-08 2020-03-08 [facility] [id number] 14:45:08 15:08:51 Visit [facility] [id number] Surgical [id number] Specialti [id number] [address] 2020-03-08 2020-03-08 [facility] [id number] Univers 14:45:08 15:08:51 Visit [facility] [id number] it y of Surgical [id number] Carlos as Specialti [id number] Mt dical [address] [facility] 2020-03-08 2020-03-08 [facility] [id number] Univers 14:30:00 14:30:[address] [facility] 2020-03-08 2020-03-08 Orders Doctor NORBERTO [id number] Univers 00:00:00 00:00:00 Only Unassigned, [place] [id number] ity of [place] [facility] [id number] Carlos as [phone] [address] Results This patient has no known results.
[2021-11-03] MEDS ORDERED: HYDROCODONE/APAP 10/325 TAB ONE (20:12)
--- NOTE | 2021-11-03 23:23 | ER ---
Nurse's Notes [facility] Name: Bridgett Gotti Age: 71 yrs Sex: Female : 1950 Arrival Date: 11/03/2021 Time: 19:32 Bed 9 Private MD: Dudley Valero E Diagnosis: Adverse effect of anticoagulants, initial encounter;Superficial skin avulsion Presentation: 11/03 19:39 Chief complaint: Patient states: right leg laceration on blood thinner. Coronavirus da3 screen: Vaccine status: Patient reports receiving the 2nd dose of the covid vaccine. Ebola Screen: No symptoms or risks identified at this time. Complicating Factors: cut leg while shaving on thinners. Initial Sepsis Screen: Does the patient meet any 2 criteria? No. Patient's initial sepsis screen is negative. Risk Assessment: Do you want to hurt yourself or someone else? Patient reports no desire to harm self or others. Onset of symptoms was November 03, 2021 at 18:30. 19:39 Method Of Arrival: Ambulatory da3 19:39 Acuity: LASHONDA 3 da3 20:04 Initial Sepsis Screen: Does the patient have a suspected source of infection? No. lp1 Patient's initial sepsis screen is negative. Triage Assessment: 19:43 General: Appears in no apparent distress. comfortable, Behavior is calm, cooperative. da3 Pain: Denies pain. Complains of pain in right leg. Injury Description: Laceration is bleeding moderately, is bleeding moderately. Historical: - Allergies: 20:03 Bactrim; lp1 20:03 Sulfa (Sulfonamide Antibiotics); lp1 - Home Meds: 20:03 Klonopin 1 mg Oral tab 1 tab TID prn for PRN for anxiety [Active]; Lactobacillus lp1 acidophilus Oral cap daily [Active]; Lasix 20 mg Oral tab 1 tab once daily [Active]; lisinopril 20 mg Oral tab 1 tab once daily [Active]; melatonin 10 mg Oral tab nightly [Active]; metformin 1,000 mg Oral tab 1 tab 2 times per day [Active]; metoprolol tartrate 100 mg Oral tab 1 tab once daily [Active]; - PMHx: 20:03 Back pain; Depression; Diabetes - NIDDM; Enteritis; Hypertension; Lupus; Rheumatoid lp1 Arthritis; Sleep Apnea; - PSHx: 20:03 hysterectomy; lp1 - Immunization history:: Client reports receiving the 2nd dose of the Covid vaccine. - Social history:: Smoking status: Patient/guardian denies using tobacco. - Family history:: not pertinent. - Hospitalizations: : No recent hospitalization is reported. Screenin:03 Abuse screen: Denies threats or abuse. Denies injuries from another. Nutritional lp1 screening: No deficits noted. Tuberculosis screening: No symptoms or risk factors identified. Fall Risk None identified. Assessment: 20:07 General: Appears in no apparent distress. Behavior is appropriate for age. Pain: lp1 Complains of pain in right Achilles Pain currently is 8 out of 10 on a pain scale. Quality of pain is described as sharp. Neuro: Level of Consciousness is awake, alert, obeys commands, Oriented to person, place, time, situation. Cardiovascular: Patient's skin is warm and dry. Respiratory: Respiratory effort is even, unlabored. GI: No signs and/or symptoms were reported involving the gastrointestinal system. : No signs and/or symptoms were reported regarding the genitourinary system. EENT: No signs and/or symptoms were reported regarding the EENT system. Derm: Skin is pink, warm \T\ dry. Wound noted Other: Small laceration to posterior lower right leg, bleeding continued, controlled; Dr. Madera at bedside, applied Surgicel to site with 4x4's, CESAR wrap for pressure to site. Musculoskeletal: Circulation, motion, and sensation intact. Injury Description: Laceration sustained to right Achilles is 0.5 to 2.5 cm long. 21:46 Reassessment: Patient appears in no apparent distress at this time. Patient is alert, lp1 oriented x 3, equal unlabored respirations, skin warm/dry/pink. Wound to right lower leg reassessed, bleeding controlled. 23:32 Reassessment: Patient appears in no apparent distress at this time. Patient is alert, lp1 oriented x 3, equal unlabored respirations, skin warm/dry/pink. Pressure dressing to right lower leg, educated to leave dressing to site until AM, return if any continued bleeding or uncontrolled. Vital Signs: 19:39 BP 213 / 107; Pulse 112; Resp 18; Temp 99; Pulse Ox 98% on R/A; Weight 83.91 kg; Height da3 5 ft. 1 in. (154.94 cm); 20:05 BP 186 / 92; lp1 23:31 BP 155 / 80; Pulse 96; Resp 18; Pulse Ox 97% on R/A; lp1 19:39 Body Mass Index 34.96 (83.91 kg, 154.94 cm) da3 ED Course: 19:32 Patient arrived in ED. es 19:32 Dudley Valero MD is Private Physician. es 19:42 Triage completed. da3 19:51 Zhao Madera MD is Attending Physician. rn 19:52 Marjorie Cobb, RN is Primary Nurse. lp1 20:02 Arm band placed on. lp1 20:03 Patient has correct armband on for positive identification. lp1 23:32 No provider procedures requiring assistance completed. Patient did not have IV access lp1 during this emergency room visit. Administered Medications: 20:14 Drug: [place] (HYDROcodone-acetaminophen) 10 mg-325 mg 1 tabs Route: PO; lp1 23:32 Follow up: Response: No adverse reaction lp1 Outcome: 23:23 Discharge ordered by . rn 23:32 Discharged to home via wheelchair, with family. lp1 23:32 Condition: good 23:32 Discharge instructions given to patient, Instructed on discharge instructions, follow up and referral plans. Demonstrated understanding of instructions, follow-up care. 23:33 Patient left the ED. lp1 Signatures: Aaliyah Coffman Roman, MD MD rn Pena, Laura, RN RN lp1 Calvin Garner RN RN da3
--- NOTE | 2021-11-03 23:23 | EDPHYS ---
Physician Documentation [facility] Name: Bridgett Gotti Age: 71 yrs Sex: Female : 1950 Arrival Date: 11/03/2021 Time: 19:32 Bed 9 Private MD: Dudley Valero E ED Physician Zhao Madera HPI: 11/03 20:04 This 71 yrs old Female presents to ER via Ambulatory with complaints of rn Laceration To Leg. 20:04 The patient has a laceration related to: miriam from shaving. The laceration(s) is(are) rn located on the right leg. Onset: The symptoms/episode began/occurred just prior to arrival. The patient has not experienced similar symptoms in the past. The patient has not recently seen a physician. Patient reports was shaving her legs for doctor visit tomorrow, takes Plavix, reports nicked the inside of her right lower leg and has not stopped bleeding. Denies any shortness of breath or lightheadedness. No syncope. No chest pain.. Historical: - Allergies: 20:03 Bactrim; lp1 20:03 Sulfa (Sulfonamide Antibiotics); lp1 - Home Meds: 20:03 Klonopin 1 mg Oral tab 1 tab TID prn for PRN for anxiety [Active]; Lactobacillus lp1 acidophilus Oral cap daily [Active]; Lasix 20 mg Oral tab 1 tab once daily [Active]; lisinopril 20 mg Oral tab 1 tab once daily [Active]; melatonin 10 mg Oral tab nightly [Active]; metformin 1,000 mg Oral tab 1 tab 2 times per day [Active]; metoprolol tartrate 100 mg Oral tab 1 tab once daily [Active]; - PMHx: 20:03 Back pain; Depression; Diabetes - NIDDM; Enteritis; Hypertension; Lupus; Rheumatoid lp1 Arthritis; Sleep Apnea; - PSHx: 20:03 hysterectomy; lp1 - Immunization history:: Client reports receiving the 2nd dose of the Covid vaccine. - Social history:: Smoking status: Patient/guardian denies using tobacco. - Family history:: not pertinent. - Hospitalizations: : No recent hospitalization is reported. ROS: 20:04 Constitutional: Negative for fever, chills, and weight loss, Cardiovascular: Negative rn for chest pain, palpitations, and edema, Respiratory: Negative for cough, wheezing, and pleuritic chest pain, Abdomen/GI: Negative for abdominal pain, nausea, vomiting, diarrhea, and constipation, MS/Extremity: Positive injury and bleeding to right lower extremity Skin: Small avulsion with bleeding to right lower extremity Neuro: Negative for headache, weakness, numbness, tingling, and seizure. Exam: 20:06 Constitutional: This is a well developed, well nourished patient who is awake, alert, rn and in no acute distress. Cardiovascular: Regular rate and rhythm. No pulse deficits. Respiratory: No increased work of breathing, no retractions or nasal flaring. Skin: Right lower extremity, subcentimeter, on the medial side of the right lower extremity a few inches proximal to the medial malleolus with small venous bleeding. No arterial bleeding noted. MS/ Extremity: Pulses equal, no cyanosis. Neurovascular intact. Full, normal range of motion. Equal circumference. Vital Signs: 19:39 BP 213 / 107; Pulse 112; Resp 18; Temp 99; Pulse Ox 98% on R/A; Weight 83.91 kg; Height da3 5 ft. 1 in. (154.94 cm); 20:05 BP 186 / 92; lp1 23:31 BP 155 / 80; Pulse 96; Resp 18; Pulse Ox 97% on R/A; lp1 19:39 Body Mass Index 34.96 (83.91 kg, 154.94 cm) da3 Procedures: 20:06 Performed Surgicel along with pressure dressing. 2+ dorsalis pedis pulses after rn pressure dressing applied with good cap refill.. MDM: 19:51 Patient medically screened. rn 23:20 Differential diagnosis: avulsion, bleeding 2/2 anticoagulant use. Data reviewed: vital rn signs, nurses notes, and as a result, I will discharge patient. Counseling: I had a detailed discussion with the patient and/or guardian regarding: the historical points, exam findings, and any diagnostic results supporting the discharge/admit diagnosis, the need for outpatient follow up, to return to the emergency department if symptoms worsen or persist or if there are any questions or concerns that arise at home. Special discussion: I discussed with the patient/guardian in detail that at this point there is no indication for admission to the hospital. It is understood, however, that if the symptoms persist or worsen the patient needs to return immediately for re-evaluation. ED course: No longer bleeding with pressure dressing and surgicel, no laceration to suture, more of superficial and subcentimeter avulsion. Will send home with dressing and return precautions. . Administered Medications: 20:14 Drug: [facility] (HYDROcodone-acetaminophen) 10 mg-325 mg 1 tabs Route: PO; lp1 23:32 Follow up: Response: No adverse reaction lp1 Disposition Summary: 11/03/21 23:23 Discharge Ordered Location: Home rn Problem: new rn Symptoms: have improved rn Condition: Stable rn Diagnosis - Adverse effect of anticoagulants, initial encounter rn - Superficial skin avulsion rn Followup: rn - With: Private Physician - When: As needed - Reason: Recheck today's complaints, Re-evaluation by your physician Discharge Instructions: - Discharge Summary Sheet rn - Bleeding Precautions When on Anticoagulant Therapy, Adult rn Forms: - Medication Reconciliation Form rn - Thank You Letter rn - Antibiotic sports journalist - Prescription Opioid Use rn Signatures: Zhao Madera MD MD rn Pena, Laura, RN RN lp1 Calvin Garner RN RN da3
[2021-11-03 23:39] VITALS: TEMP 99
[2021-11-03 23:41] VITALS: BP 155/80; O2SAT 97
== END 2021-11-03 23:33 | disposition home or self-care (01) ==
LOC: ER 19:29
DX: S81.811A Laceration without foreign body, right lower leg, initial encounter (principal); T45.515A Adverse effect of anticoagulants, initial encounter; I10 Essential (primary) hypertension; E11.9 Type 2 diabetes mellitus without complications; Z88.1 Allergy status to other antibiotic agents; Z88.2 Allergy status to sulfonamides
CPT/HCPCS: 99283

== ENCOUNTER 2022-07-19 10:56 | Emergency (ER) | payer OTHER ==
--- OUTSIDE RECORDS SUMMARY | 2022-07-19 11:00 | XMS REPORT | Continuity of Care Document ---
:1950 Author Organization [facility] t Address [address] [place] [address] Care Team Providers Name Role Phone Doctor Unassigned, [place] Attending Clinician Unavailable MARINA BAKER Attending Clinician Unavailable Juan F Lagos MD Attending Clinician JUAN F LAGOS Attending Clinician Unavailable Payers Payer Name Policy Type Policy Number Effective Date Expiration Date S ource Problems Condition Condition Condition Status Onset Resolution Last Treating Co mments Source Name Details Category Date Date Treatment Clinician Date Hypertensi Hypertensi Disease Active U nivers on, on, 12-08 [place] [facility] Asymptomat Asymptomat Disease Active U nivers ic ic 12-08 [place] hypertens[place] ve [place] ve urgency 00 Me dical Branch Emphysema Emphysema Disease Active Uni vers lung lung 12-08 ity of 00:00: [place] 00 Medical [facility] Systemic Systemic Disease Active Unive rs [...] it y of my my 00:00: [place] 00 Medical Branch Undiagnose Undiagnose Disease Active Overview : [...] smoker, -13 ity of stopped stopped 00:00: [place] smoking in smoking in 00 Me dical distant distant Branch past past Allergies, Adverse Reactions, Alerts Allergy Allergy Status Severity Reaction(s) Onset Inactive Treating Comm ents Source Name Type Date Date Clinician SULFA Drug Active Rash Univers (SULFONA Class 1-13 ity of MIDE 00:00: [place] ANTIBIOT 00 Medical ICS) Branch Sulfa Propensi Active Rash Univers (Sulfona ty to -13 ity of mide adverse 00:00: [place] Antibiot reaction 00 Medica l ics) s Branch Social History Social Habit Start Date Stop Date Quantity Comments Source Alcohol intake 2020-03-08 2020-03-08 Current drinker Unive rsity of 00:00:00 00:00:00 of alcohol [place] Medical (finding) Branch Tobacco use and 2020-03-08 2020-03-08 Never used Universit y [facility] exposure [facility]:00:00 [facility] History of 1998-11-26 Cigarette Smoker Universi ty [facility] tobacco [facility] Sex Ass[birth year] At [birth year] Universit y [facility] 00:00:00 [facility] Smoking Status Start Date Stop Date Source Former smoker 2020-03-08 00:00:00 2020-03-08 00:00:00 [facility] Medications Ordered Filled Start Stop Current Ordering Indication Dosage Frequency Signature Comments Components Source Medication Medication Date Date Medication? Clinician (SIG) Name Name ALBUTEROL Yes Inhale. Unive rs INHALE 12-08 ity of 16:20: [address] ALBUTEROL Yes Inhale. Unive rs INHALE 13 ity of 16:20: [address] ALBUTEROL Yes Inhale. Unive rs INHALE 1-13 ity of 16:20: [address] ALBUTEROL 2016 Yes Inhale. Unive rs INHALE 1-13 ity of 16:20: [address] ALBUTEROL [address] Yes Inhale. Unive rs INHALE 1-13 ity of 16:20: [address] LISINOPRIL Yes 2{tbl} Take 2 Uni vers ORAL 1-13 Tabs by ity of 16:16: mouth. [address] AMLODIPINE Yes 1{tbl} Take 1 Tab Univers BESYLATE 1-13 by mouth. ity of (NORVASC 16:16: [place] ORAL) [address] [place] [address] CLONIDINE Yes Take by Unive rs HCL ORAL 1-13 mouth. ity of 16:16: [address] CITALOPRAM Yes 1{tbl} Take 1 Tab Univers HYDROBROMID 1-13 by mouth. ity of E (CELEXA 16:16: [place] ORAL) [address] [place] [address] LISINOPRIL Yes 2{tbl} Take 2 Uni vers ORAL 1-13 Tabs by ity of 16:16: mouth. [address] AMLODIPINE Yes 1{tbl} Take 1 Tab Univers BESYLATE 1-13 by mouth. ity of (NORVASC 16:16: [place] ORAL) [address] [place] [address] CLONIDINE Yes Take by Unive rs HCL ORAL 1-13 mouth. ity of 16:16: [address] CITALOPRAM Yes 1{tbl} Take 1 Tab Univers HYDROBROMID 1-13 by mouth. ity of E (CELEXA 16:16: [place] ORAL) [address] [place] [address] LISINOPRIL Yes 2{tbl} Take 2 Uni vers ORAL 1-13 Tabs by ity of 16:16: mouth. [address] AMLODIPINE Yes 1{tbl} Take 1 Tab Univers BESYLATE 1-13 by mouth. ity of (NORVASC 16:16: [place] ORAL) [address] [place] [address] CLONIDINE Yes Take by Unive rs HCL ORAL 1-13 mouth. ity of 16:16: [address] CITALOPRAM Yes 1{tbl} Take 1 Tab Univers HYDROBROMID 1-13 by mouth. ity of E (CELEXA 16:16: [place] ORAL) [address] [place] [address] LISINOPRIL Yes 2{tbl} Take 2 Uni vers ORAL 1-13 Tabs by ity of 16:16: mouth. [address] AMLODIPINE Yes 1{tbl} Take 1 Tab Univers BESYLATE 1-13 by mouth. ity of (NORVASC 16:16: [place] ORAL) [address] [place] [address] CLONIDINE Yes Take by Unive rs HCL ORAL 1-13 mouth. ity of 16:16: [address] CITALOPRAM Yes 1{tbl} Take 1 Tab Univers HYDROBROMID 1-13 by mouth. ity of E (CELEXA 16:16: [place] ORAL) [address] [place] [address] LISINOPRIL Yes 2{tbl} Take 2 Uni vers ORAL 1-13 Tabs by ity of 16:16: mouth. [address] AMLODIPINE Yes 1{tbl} Take 1 Tab Univers BESYLATE 1-13 by mouth. ity of (NORVASC 16:16: [place] ORAL) [address] [place] [address] CLONIDINE Yes Take by Unive rs HCL ORAL 1-13 mouth. ity of 16:16: [address] CITALOPRAM Yes 1{tbl} Take 1 Tab Univers HYDROBROMID 1-13 by mouth. ity of E (CELEXA 16:16: [place] ORAL) [address] [place] [address] Immunizations Ordered Filled Immunization Date Status Comments [facility] e Immunization Name Name SARS-COV-2 COVID-19 2021-03-04 Completed Unive rsity of PFIZER VACCINE 00:00:00 [facility] SARS-COV-2 COVID-19 2021-03-04 Completed Unive rsity of PFIZER VACCINE 00:00:00 [facility] SARS-COV-2 COVID-19 2021-02-11 Completed Unive rsity of PFIZER VACCINE 00:00:00 [facility] SARS-COV-2 COVID-19 2021-02-11 Completed Unive rsity of PFIZER VACCINE 00:00:00 [facility] Vital Signs Vital Name Observation Time Observation Value Comments Source Systolic blood 2020-03-08 19:57:00 188 mm[Hg] Univer sity of [facility] Diastolic blood 2020-03-08 19:57:00 102 mm[Hg] Unive rsity of [place] pressure [facility] Branch Heart rate 2020-03-08 19:57:00 76 /min [facility] Body height 2020-03-08 19:54:00 152.4 cm [facility] Body weight 2020-03-08 19:54:00 72.576 kg Universi ty of [facility] Branch BMI 2020-03-08 19:54:00 31.25 kg/m2 Universi ty of [facility] Branch Systolic blood 2020-03-08 19:57:00 188 mm[Hg] Univer sity of [facility] Branch Diastolic blood 2020-03-08 19:57:00 102 mm[Hg] Unive rsity of [facility] Heart rate 2020-03-08 19:57:00 76 /min [facility] Body height 2020-03-08 19:54:00 152.4 cm [facility] Body weight 2020-03-08 19:54:00 72.576 kg [facility] BMI 2020-03-08 19:54:00 31.25 kg/m2 Universi ty of [facility] Branch Procedures Procedure Date / Time Performed Performing Clinician Sour e ASSIGNMENT OF BENEFITS 2020-03-08 19:43:50 Doctor Unassigned, No [facility] Encounters Start End Encounter Admission Attending Care Care Encounter Source Date/Time Date/Time Type Type Clinicians Facility Department ID 2021-04-04 2021-04-04 Letter Doctor THORNTON [id number] Univers 00:00:00 00:00:00 (Out) UnassignedSAGRARIO [id number] ity of [place] [facility] [id number] Carlos as [phone] [address] 2021-04-04 2021-04-04 Letter Doctor NORBERTO [id number] Univers 00:00:00 00:00:00 (Out) Unassigned, [place] [id number] ity of [place] [facility] [id number] Carlos as [phone] [address] 2021-03-04 2021-03-04 Outpatient R OLIVIA [facility] [id number] Univers 09:10:00 09:10:00 MARINA ity [facility] 2021-02-11 2021-02-11 Outpatient [facility] [id number] Univers 09:10:00 09:10:00 ity [facility] 2020-03-08 2020-03-08 [facility] [id number] 14:45:08 15:08:51 Visit [facility] [id number] Surgical [id number] Specialti [id number] es [address] 2020-03-08 2020-03-08 [facility] [id number] Univers 14:45:08 15:08:51 Visit [facility] [id number] it y of Surgical [id number] Carlos as Specialti [id number] Sd dical es [address] [facility] 2020-03-08 2020-03-08 [facility] [id number] Univers 14:30:00 14:30:00 [facility] 2020-03-08 2020-03-08 Orders Doctor NORBERTO [id number] Univers 00:00:00 00:00:00 Only Unassigned, [place] [id number] ity of [place] [facility] [id number] Carlos as [phone] [place] [address] Branch Results This patient has no known results.
[2022-07-19 12:18] LABS: Absolute Lymphocytes (CBC) 1.3 K/uL (0.7-4.9); Hematocrit 45.4 % (36.0-45.0); Lymphocytes % 27.4 % (15.3-44.8); MCV 93.8 fL (80-100); MPV 9.9 fL (7.6-11.3); RBC Red Blood Cell Count 4.83 M/uL (3.86-4.86)
[2022-07-19] MEDS ORDERED: ONDANSETRON 4 MG/2 ML VIAL ONE (12:21)
[2022-07-19] MEDS ORDERED: MORPHINE 4 MG/ML SYR ONE (12:21)
[2022-07-19 12:29] LABS: Protime INR 1.01
[2022-07-19 12:46] LABS: Albumin 3.2 g/dL (3.4-5.0); Bilirubin Direct 0.2 mg/dL (0-0.2); Bilirubin Total 0.7 mg/dL (0.2-1.0); Magnesium 1.6 mg/dL (1.8-2.4); Potassium 4.2 mmol/L (3.5-5.1); Protein, Total 8.3 g/dL (6.4-8.2); Troponin High Sensitivity 26.8 pg/mL (<58.9)
--- NOTE | 2022-07-19 13:06 | RAD REPORT ---
EXAM DESCRIPTION: RAD - Chest Single View - 07/19/2022 12:57 pm CLINICAL HISTORY: SOB COMPARISON: Chest Single View dated 10/12/2020; Chest Single View dated 01/20/2020; Chest Single View dated 11/27/2019; Chest Single View dated 05/04/2017 FINDINGS: Lines: None. Lungs: No evidence of edema or pneumonia. Pleural: No significant pleural effusions or pneumothorax. Cardiac: The heart size is within normal limits. Bones: No acute fractures. Other: IMPRESSION: No acute cardiopulmonary disease.
--- NOTE | 2022-07-19 13:30 | RAD REPORT ---
EXAM DESCRIPTION: CT - Chest For Pe Angio - 07/19/2022 1:21 pm CLINICAL HISTORY: shortness of breath COMPARISON: No comparisons TECHNIQUE: Dynamically enhanced axial 3 mm thick images of the chest were obtained during administra tion of <100> mL Isovue 370 IV contrast. Coronal and oblique reconstruction images were generated and reviewed. Exam utilizes a protocol for optimal evaluation of pulmonary arterial tree. Maximum intensity projections 3D imaging was utilized All CT scans are performed using dose optimization technique as appropriate and may include automated exposure control or mA/KV adjustment according to patient size. FINDINGS: Chest Wall: No suspicious thyroid nodules or pathologic lymphadenopathy. Lungs: No acute abnormality. Pleura: No significant effusions or pneumothorax. Mediastinum/jose: No pathologic lymphadenopathy. Pulmonary arteries/Aorta: No filling defect identified. No aortic aneurysm. Ectasia of the ascending thoracic aorta. Heart: No significant pericardial effusion. Normal heart size. Multi-vessel coronary artery disease. Upper abdomen: Reference same-day CT of the abdomen. Bones: No acute abnormality. Multilevel degenerative changes are present in the spine. IMPRESSION: Negative for pulmonary embolism. No acute findings within the chest.
--- NOTE | 2022-07-19 13:35 | RAD REPORT ---
EXAM DESCRIPTION: CTAbdomen Pelvis W Contrast - 07/19/2022 1:21 pm CLINICAL HISTORY: left lower abdominal pain COMPARISON: Chest For Pe Angio dated 07/19/2022 TECHNIQUE: CT of the abdomen and pelvis was performed. All CT scans are performed using dose optimization technique as appropriate and may include automated exposure control or mA/KV adjustment according to patient size. FINDINGS: Lower chest: Mild circumferential thickening of the distal esophagus. Scattered coronary a rtery calcifications. Liver: No acute abnormality or suspicious lesions. Biliary: Cholelithiasis. No CT evidence of acute cholecystitis. Stomach: No significant focal abnormality. Duodenum: No significant focal abnormality. Pancreas: No significant abnormality. Spleen: No significant abnormality. Adrenal: No suspicious lesions. Kidney/ureter: No hydronephrosis. No renal calculi. Retroperitoneum: No retroperitoneal adenopathy. Vascular: No aneurysm. Atherosclerosis. Bowel: No significant focal abnormality. Appendix not identified. Peritoneum: No ascites or free air. Bladder: Grossly unremarkable. Reproductive: No adnexal masses. Hysterectomy. Bones: No acute fracture. Remote left-sided eleventh rib fracture. Other: n/a IMPRESSION: No acute intra-abdominal or pelvic finding. Incidental findings as noted above.
[2022-07-19 15:25] LABS: Urine Blood Trace-intact (Negative); Urine Glucose Trace (Negative); Urine Protein 1+ (Negative); Urine pH 5.5 (5.0-7.0)
[2022-07-19] MEDS ORDERED: MAGNESIUM SULFATE 1 gm IVPB 1 GM/100 ML BAG IV ONE (15:47)
[2022-07-19] MEDS ORDERED: FENTANYL CITR 100 MCG/2 ML ONE (17:25)
--- NOTE | 2022-07-19 18:00 | EDPHYS ---
Physician Documentation [facility] Name: Bridgett Gotti Age: 72 yrs Sex: Female : 1950 Arrival Date: 07/19/2022 Time: 10:58 Bed 20 Private MD: Dudley Valero E ED Physician Tono Patrick HPI: 07/19 12:01 This 72 yrs old Female presents to ER via Ambulatory with complaints of Low Back Pain, jmm Abdominal Pain. 12:01 The patient presents with pain that is acute. The symptoms are located in the left [facility] flank. The pain radiates to the pelvis. Onset: The symptoms/episode began/occurred gradually, 1 week(s) ago. Modifying factors: The patient symptoms are alleviated by nothing, the patient symptoms are aggravated by any movement. Associated signs and symptoms: Pertinent positives: abdominal pain, Pertinent negatives: dysuria, fever. The patient has not experienced similar symptoms in the past. Historical: - Allergies: 11:34 Sulfa (Sulfonamide Antibiotics); ap3 11:34 Bactrim; ap3 - PMHx: 11:34 Sleep Apnea; Back pain; Depression; Diabetes - NIDDM; Enteritis; Hypertension; Lupus; ap3 Rheumatoid Arthritis; - PSHx: 11:34 hysterectomy; ap3 - Immunization history:: Client reports receiving the 2nd dose of the Covid vaccine. - Social history:: Smoking status: Patient/guardian denies using tobacco, Patient uses street drugs, marijuana. ROS: 12:01 Constitutional: Negative for fever, chills, and weight loss, Eyes: Negative for injury, jmm pain, redness, and discharge, ENT: Negative for injury, pain, and discharge, Neck: Negative for injury, pain, and swelling, Cardiovascular: Negative for chest pain, palpitations, and edema, Respiratory: Negative for shortness of breath, cough, wheezing, and pleuritic chest pain, Back: Negative for injury and pain, : Negative for injury, bleeding, discharge, and swelling, MS/Extremity: Negative for injury and deformity, Skin: Negative for injury, rash, and discoloration, Neuro: Negative for headache, weakness, numbness, tingling, and seizure. 12:01 Abdomen/GI: Positive for abdominal pain. 12:01 All other systems are negative. Exam: 12:01 Head/Face: atraumatic. Eyes: EOMI, no conjunctival erythema appreciated ENT: Moist [facility] Mucus Membranes Neck: Trachea midline, Supple Chest/axilla: Normal chest wall appearance and motion. Cardiovascular: Regular rate and rhythm. No edema appreciated Respiratory: Normal respirations, no respiratory distress appreciated 12:01 Back: Normal ROM Skin: General appearance color normal MS/ Extremity: Moves all extremities, no obvious deformities appreciated, no edema noted to the lower extremities Neuro: Awake and alert Psych: Behavior is normal, Mood is normal, Patient is cooperative and pleasant 12:01 Constitutional: The patient appears alert, awake, anxious, uncomfortable. 12:01 Abdomen/GI: Inspection: obese Bowel sounds: normal, Palpation: soft, mild abdominal tenderness, in the left lower quadrant. Vital Signs: 11:33 BP 192 / 122; ap3 11:35 Pulse 106; Resp 18; Temp 97.6; Pulse Ox 98% ; ap3 16:05 BP 154 / 119; Pulse 77; Resp 18; Pulse Ox 98% ; jh5 MDM: 12:01 Patient medically screened. [facility] 17:58 Data reviewed: vital signs, nurses notes. Counseling: I had a detailed discussion with courtney the patient and/or guardian regarding: the historical points, exam findings, and any diagnostic results supporting the discharge/admit diagnosis, lab results, radiology results, the need for outpatient follow up, to return to the emergency department if symptoms worsen or persist or if there are any questions or concerns that arise at home. ED course: Patient is alert and nontoxic in appearance in the ED. CT was negative for any acute process. Patient is pain is relieved. Patient will follow with PCP on Sunday and otherwise given strict return precautions. Patient understood agrees plan of care.. 07/19 12:02 Order name: Basic Metabolic Panel; Complete Time: 12:53 [facility] 07/19 12:02 Order name: CBC with Diff; Complete Time: 12:44 [facility] 07/19 12:02 Order name: LFT's; Complete Time: 12:53 [facility] 07/19 12:02 Order name: Magnesium; Complete Time: 12:53 [facility] 07/19 12:02 Order name: NT PRO-BNP; Complete Time: 12:53 [facility] 07/19 12:02 Order name: PT-INR; Complete Time: 12:39 [facility] 07/19 12:02 Order name: Troponin HS; Complete Time: 12:53 [facility] 07/19 12:02 Order name: XRAY Chest (1 view); Complete Time: 13:15 [facility] 07/19 12:55 Order name: CT Chest For PE Angio; Complete Time: 13:32 [facility] 07/19 12:55 Order name: CT Abd/Pelvis - IV Contrast Only; Complete Time: 13:41 [facility] 07/19 15:25 Order name: Urine Dipstick-Ancillary; Complete Time: 15:26 [facility] 07/19 12:02 Order name: EKG; Complete Time: 12:03 [facility] 07/19 12:02 Order name: Cardiac monitoring; Complete Time: 12:04 [facility] 07/19 12:02 Order name: EKG - Nurse/Tech; Complete Time: 12:04 [facility] 07/19 12:02 Order name: IV Saline Lock; Complete Time: 12:04 [facility] 07/19 12:02 Order name: Labs collected and sent; Complete Time: 12:04 [facility] 07/19 12:02 Order name: O2 Per Protocol; Complete Time: 12:04 [facility] 07/19 12:02 Order name: O2 Sat Monitoring; Complete Time: 12:04 [facility] 07/19 12:03 Order name: Urine Dipstick-Ancillary (obtain specimen); Complete Time: 15:28 [facility] Administered Medications: 12:20 Drug: morphine 4 mg Route: IVP; Infused Over: 4 mins; Site: right antecubital; [facility] 12:20 Drug: Zofran (Ondansetron) 4 mg Route: IVP; Site: right antecubital; [facility] 15:40 Drug: Magnesium Sulfate 1 grams Route: IVPB; Infused Over: 1 hrs; Site: right [facility] antecubital; 15:59 Not Given (not stocked down in ED asked for new med orderr): Valium (diazepam) 5 mg IVP [facility] once 17:19 Drug: fentaNYL (PF) 50 mcg Route: IVP; Site: right antecubital; [facility] Disposition: 18:53 Co-signature as Attending Physician, Tono Patrick MD I agree with the assessment and kdr plan of care. Disposition Summary: 07/19/22 17:59 Discharge Ordered Location: Home [facility] Condition: Stable [facility] Diagnosis - Low back pain jmm - Pelvic and perineal pain [facility] Followup: [facility] - With: Private Physician - When: 2 - 3 days - Reason: Recheck today's complaints, Continuance of care, Re-evaluation by your physician Discharge Instructions: - Discharge Summary Sheet jmm - Acute Back Pain, Adult jmm - Pelvic Pain, Female jm Forms: - Medication Reconciliation Form [facility] - Thank You Letter jm - Antibiotic Education jm - Prescription Opioid Use [facility] Prescriptions: - Ultracet 37.5-325 mg Oral Tablet - take 1 tablet by ORAL route every 6 hours - for up to 5 days; do not exceed 8 jmm tablets per day.; 20 tablet; Refills: 0, Product Selection Permitted - orphenadrine citrate 100 mg Oral Tablet Sustained Release - take 1 tablet by ORAL route 2 times per day As needed; 20 tablet; Refills: 0, jmm Product Selection Permitted Signatures: Dispatcher [employer] Tono Desai MD MD kdr Mickail, Joel, PA PA jmm Prokisch, Amanda, RN RN ap3 Gisselle Luke RN RN jh5
--- NOTE | 2022-07-19 18:00 | ER ---
[facility] Name: Bridgett Gotti Age: 72 yrs Sex: Female : 1950 Arrival Date: 07/19/2022 Time: 10:58 Bed 20 Private MD: Dudley Valero E Diagnosis: Low back pain;Pelvic and perineal pain Presentation: 07/19 11:33 Chief complaint: Patient states: she started having abdominal pain about a week ago ap3 that starts in her left lower quadrant, and goes into her left back. Coronavirus screen: At this time, the client does not indicate any symptoms associated with coronavirus-19. Ebola Screen: No symptoms or risks identified at this time. Initial Sepsis Screen: Does the patient meet any 2 criteria? No. Patient's initial sepsis screen is negative. Does the patient have a suspected source of infection? No. Patient's initial sepsis screen is negative. Risk Assessment: Do you want to hurt yourself or someone else? Patient reports no desire to harm self or others. Onset of symptoms was July 12, 2022. 11:33 Acuity: LASHONDA 2 ap3 11:34 Method Of Arrival: Ambulatory [facility] Triage Assessment: 11:34 General: Appears uncomfortable, Behavior is restless. Pain: Complains of pain in left ap3 lower quadrant Pain radiates to right low back. Neuro: Level of Consciousness is awake, alert, obeys commands, Speech is normal. Cardiovascular: Patient's skin is warm and dry. Respiratory: Airway is patent Respiratory effort is even, unlabored. GI: Patient currently denies nausea, vomiting. Historical: - Allergies: 11:34 Sulfa (Sulfonamide Antibiotics); ap3 11:34 Bactrim; ap3 - PMHx: 11:34 Sleep Apnea; Back pain; Depression; Diabetes - NIDDM; Enteritis; Hypertension; Lupus; ap3 Rheumatoid Arthritis; - PSHx: 11:34 hysterectomy; ap3 - Immunization history:: Client reports receiving the 2nd dose of the Covid vaccine. - Social history:: Smoking status: Patient/guardian denies using tobacco, Patient uses street drugs, marijuana. Screenin:35 Abuse screen: Denies threats or abuse. Nutritional screening: No deficits noted. ap3 Tuberculosis screening: No symptoms or risk factors identified. 18:14 Fall Risk None identified. [facility] Assessment: 12:09 GI: Bowel sounds present X 4 quads. Abd is soft and non tender. [facility] Vital Signs: 11:33 BP 192 / 122; ap3 11:35 Pulse 106; Resp 18; Temp 97.6; Pulse Ox 98% ; ap3 16:05 BP 154 / 119; Pulse 77; Resp 18; Pulse Ox 98% ; 5 ED Course: 10:58 Patient arrived in ED. am2 10:58 Dudley Valero MD is Private Physician. am2 11:33 Devante Best PA is PHCP. m 11:33 Tono Patrick MD is Attending Physician. [facility] 11:34 Gisselle Luke, ILAN is Primary Nurse. jh5 11:34 Triage completed. ap3 11:35 Arm band placed on right wrist. ap3 12:09 No provider procedures requiring assistance completed. jh5 12:59 XRAY Chest (1 view) In Process Unspecified. EDMS 13:23 CT Chest For PE Angio In Process Unspecified. EDMS 13:23 CT Abd/Pelvis - IV Contrast Only In Process Unspecified. EDMS 18:14 Patient has correct armband on for positive identification. jh5 18:14 Patient did not have IV access during this emergency room visit. [facility] Administered Medications: 12:20 Drug: morphine 4 mg Route: IVP; Infused Over: 4 mins; Site: right antecubital; [facility] 12:20 Drug: Zofran (Ondansetron) 4 mg Route: IVP; Site: right antecubital; [facility] 15:40 Drug: Magnesium Sulfate 1 grams Route: IVPB; Infused Over: 1 hrs; Site: right [facility] antecubital; 15:59 Not Given (not stocked down in ED asked for new med orderr): Valium (diazepam) 5 mg IVP [facility] once 17:19 Drug: fentaNYL (PF) 50 mcg Route: IVP; Site: right antecubital; [facility] Medication: 18:14 VIS not applicable for this client. [facility] Outcome: 17:59 Discharge ordered by . [facility] 18:13 Discharged to home ambulatory. [facility] 18:13 Condition: good 18:13 Discharge instructions given to patient, Instructed on discharge instructions, Demonstrated understanding of instructions, follow-up care, medications, Prescriptions given X 2. 18:15 Patient left the ED. 5 Signatures: Dispatcher [employer] EDMS Devante Best PA PA jmm Moreno, Amanda am2 Caroline Hayward RN RN ap3 Gisselle Luke RN RN 5 Corrections: (The following items were deleted from the chart) 11:35 11:33 Method Of Arrival: Ambulatory 3 5 12:09 12:08 Reassessment: Pt states she feels better is ready to go home; pt discloses she jh5 doesn't normally intake food or liquid in the mornings but had two sips of coffee this morning and thinks that's why she got nauseous and came today 5
[2022-07-19 20:15] VITALS: TEMP 97.6; O2SAT 98
[2022-07-19 20:18] VITALS: BP 154/119
--- NOTE | 2022-07-20 15:13 | EKG ---
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
== END 2022-07-19 18:15 | disposition home or self-care (01) ==
LOC: ER 10:56
DX: M54.50 Low back pain, unspecified (principal); R10.2 Pelvic and perineal pain; I10 Essential (primary) hypertension; Z88.1 Allergy status to other antibiotic agents; Z88.2 Allergy status to sulfonamides
CPT/HCPCS: 85025; 80048; 36415; 83735; 85610; 80076; 81003; 84484; 83880; 71275; 74177; 71045; Q9967; J3010; J3475; J2405; 93005

== ENCOUNTER 2022-11-16 11:45 | Emergency (ER) | payer OTHER ==
--- OUTSIDE RECORDS SUMMARY | 2022-11-16 11:49 | XMS REPORT | Continuity of Care Document ---
:1950 Author Organization [facility] t Address [address] [place] [address] Care Team Providers Name Role Phone Doctor Unassigned, [place] Attending Clinician Unavailable MARINA BAKER Attending Clinician [...] Former Former Disease Active Univers smoker, smoker, 12-08 ity of stopped stopped 00:00: [place] smoking [...] smoker, -13 ity of stopped stopped 00:00: [place] smoking in smoking in 00 Me dical [...] Unive rsity of 00:00:00 00:00:00 of alcohol [place] [facility] Tobacco use and 2020-03-08 2020-03-08 Never used Universit y of exposure 00:00:00 00:00:00 [facility] History of 1998-11-26 Cigarette Smoker Universi ty of tobacco use 00:00:00 [facility] Sex Assigned At [birth year] Universit y of 00:00:00 00:00:00 [facility] Smoking Status Start Date Stop Date Source Former smoker 2020-03-08 00:00:00 2020-03-08 00:00:00 Universi ty of [facility] Medications Ordered Filled Start Stop Current Ordering Indication Dosage Frequency Signature Comments Components Source Medication Medication Date Date Medication? Clinician (SIG) Name Name ALBUTEROL Yes Inhale. Unive rs INHALE 12-08 ity of 16:20: [address] ALBUTEROL Yes Inhale. Unive rs INHALE 13 ity of 16:20: [address] ALBUTEROL 2016-0 Yes Inhale. Unive rs INHALE 1-13 ity of 16:20: [address] ALBUTEROL [id number] Yes Inhale. Unive rs INHALE 1-13 ity of 16:20: [address] ALBUTEROL [address] Yes Inhale. Unive rs INHALE 1-13 ity of 16:20: [address] LISINOPRIL Yes 2{tbl} Take 2 Uni vers ORAL 1-13 Tabs by ity of 16:16: mouth. [address] AMLODIPINE Yes 1{tbl} Take 1 Tab Univers BESYLATE 1-13 by mouth. ity of (NORVASC 16:16: [place] ORAL) [address] [place] [address] CLONIDINE Yes Take by Unive rs HCL ORAL 1-13 mouth. ity of 16:16: [address] CITALOPRAM Yes 1{tbl} Take 1 Tab Univers HYDROBROMID 1-13 by mouth. ity of E (CELEXA 16:16: [place] ORAL) [address] [place] [address] LISINOPRIL Yes 2{tbl} Take 2 Uni vers ORAL 1-13 Tabs by ity of 16:16: mouth. [address] AMLODIPINE Yes 1{tbl} Take 1 Tab Univers BESYLATE 1-13 by mouth. ity of (NORVASC 16:16: [place] ORAL) [address] [place] [address] CLONIDINE Yes Take by Unive rs HCL ORAL 1-13 mouth. ity of 16:16: [address] CITALOPRAM Yes 1{tbl} Take 1 Tab Univers HYDROBROMID 1-13 by mouth. ity of E (CELEXA 16:16: [place] ORAL) [address] [place] [address] LISINOPRIL Yes 2{tbl} Take 2 Uni vers ORAL 1-13 Tabs by ity of 16:16: mouth. [address] AMLODIPINE Yes 1{tbl} Take 1 Tab Univers BESYLATE 1-13 by mouth. ity of (NORVASC 16:16: [place] ORAL) [address] [place] [address] CLONIDINE Yes Take by Unive rs HCL ORAL 1-13 mouth. ity of 16:16: [address] CITALOPRAM Yes 1{tbl} Take 1 Tab Univers HYDROBROMID 1-13 by mouth. ity of E (CELEXA 16:16: [place] ORAL) [address] [place] [address] LISINOPRIL Yes 2{tbl} Take 2 Uni vers ORAL 1-13 Tabs by ity of 16:16: mouth. [address] AMLODIPINE Yes 1{tbl} Take 1 Tab Univers BESYLATE 1-13 by mouth. ity of (NORVASC 16:16: [place] ORAL) [address] [place] [address] CLONIDINE Yes Take by Unive rs HCL ORAL 1-13 mouth. ity of 16:16: [address] CITALOPRAM Yes 1{tbl} Take 1 Tab Univers HYDROBROMID 1-13 by mouth. ity of E (CELEXA 16:16: [place] ORAL) [address] [place] [address] LISINOPRIL Yes 2{tbl} Take 2 Uni vers ORAL 1-13 Tabs by ity of 16:16: mouth. [address] AMLODIPINE Yes 1{tbl} Take 1 Tab Univers BESYLATE 1-13 by mouth. ity of (NORVASC 16:16: [place] ORAL) [address] [place] [address] CLONIDINE Yes Take by Unive rs HCL ORAL 1-13 mouth. ity of 16:16: [address] CITALOPRAM Yes 1{tbl} Take 1 Tab Univers HYDROBROMID 1-13 by mouth. ity of E (CELEXA 16:16: [place] ORAL) [address] [place] [address] Immunizations Ordered Filled Immunization Date Status Comments [facility] e Immunization Name Name SARS-COV-2 COVID-19 2021-03-04 Completed Unive rsity of PFIZER VACCINE 00:00:00 [facility] SARS-COV-2 COVID-19 2021-03-04 Completed Unive rsity of PFIZER VACCINE 00:00:00 [facility] SARS-COV-2 COVID-19 2021-02-11 Completed Unive rsity of PFIZER VACCINE 00:00:00 [facility] SARS-COV-2 COVID-19 2021-02-11 Completed Unive rsity of PFIZER VACCINE 00:00:00 [facility] Vital Signs Vital Name Observation Time Observation Value Comments Source Systolic blood 2020-03-08 19:57:00 188 mm[Hg] Univer sity of [facility] Diastolic blood 2020-03-08 19:57:00 102 mm[Hg] Unive rsity of [place] pressure [facility] Heart rate 2020-03-08 19:57:00 76 /min Universi ty of [facility] Body height 2020-03-08 19:54:00 152.4 cm Universi ty of [facility] Body weight 2020-03-08 19:54:00 72.576 kg Universi ty of [facility] Branch BMI 2020-03-08 19:54:00 31.25 kg/m2 Universi ty of [facility] Systolic blood 2020-03-08 19:57:00 188 mm[Hg] Univer sity of [place] pressure [facility] Diastolic blood 2020-03-08 19:57:00 102 mm[Hg] Unive rsity of [facility] Heart rate 2020-03-08 19:57:00 76 /min Universi ty of [facility] Body height 2020-03-08 19:54:00 152.4 cm Universi ty of [facility] Body weight 2020-03-08 19:54:00 72.576 kg Universi ty of [facility] BMI 2020-03-08 19:54:00 31.25 kg/m2 Universi ty of [facility] Branch Procedures Procedure Date / Time Performed Performing Clinician Sour e ASSIGNMENT OF BENEFITS 2020-03-08 19:43:50 Doctor Unassigned, No [facility] Encounters Start End Encounter Admission Attending Care Care Encounter Source Date/Time Date/Time Type Type Clinicians Facility Department ID 2021-04-04 2021-04-04 Letter Doctor THORNTON [id number] Univers 00:00:00 00:00:00 (Out) Unassigned, [place] [id number] ity of [place] [facility] [id number] Carlos as [id number] [address] 2021-04-04 2021-04-04 Letter Doctor NORBERTO [id number] Univers 00:00:00 00:00:00 (Out) Unassigned, [place] [id number] ity of [facility] [id number] Carlos as [id number] [address] 2021-03-04 2021-03-04 Outpatient R OLIVIA [facility] [id number] Univers 09:10:00 09:10:[address] [facility] 2021-02-11 2021-02-11 Outpatient [facility] [id number] Univers 09:10:00 09:10:[address] [facility] 2020-03-08 2020-03-08 Office [place] [id number] 14:45:08 15:08:51 Visit [facility] [id number] Surgical [id number] Specialti [id number] es [address] [place] [address] 2020-03-08 2020-03-08 Office [place] [id number] Univers 14:45:08 15:08:51 Visit [facility] [id number] it y of Surgical [id number] Carlos as Specialti [id number] K[place] dical es [address] [facility] 2020-03-08 2020-03-08 [facility] [id number] Univers 14:30:00 14:30:00 [facility] 2020-03-08 2020-03-08 Orders Doctor NORBERTO [id number] Univers 00:00:00 00:00:00 Only Unassigned, [place] [id number] ity of [facility] [id number] Carlos as [id number] [place] [address] Branch Results This patient has no known results.
--- NOTE | 2022-11-16 12:20 | ER ---
Nurse's Notes [facility] Name: Bridgett Gotti Age: 72 yrs Sex: Female : 1950 Arrival Date: 11/16/2022 Time: 11:48 Bed 13 Private MD: Diagnosis: Pain in right foot;Pain in left foot Presentation: 11/16 12:03 Chief complaint: Bilateral foot pain and dizziness x 1 week. Multiple chronic wounds hb noted to bilateral toes. Pt reports she is homeless and not taking her HTN or DM medication. Coronavirus screen: At this time, the client does not indicate any symptoms associated with coronavirus-19. Ebola Screen: No symptoms or risks identified at this time. Initial Sepsis Screen: Does the patient meet any 2 criteria? No. Patient's initial sepsis screen is negative. Does the patient have a suspected source of infection? No. Patient's initial sepsis screen is negative. Risk Assessment: Do you want to hurt yourself or someone else? Patient reports no desire to harm self or others. Onset of symptoms was November 09, 2022. 12:03 Method Of Arrival: Ambulatory hb 12:03 Acuity: LASHONDA 3 hb Triage Assessment: 12:49 Pain: Also complains of. db 12:49 Headache History: Denies prior headaches. General: Appears in no apparent distress. db comfortable, Behavior is calm, cooperative. Pain: Pain currently is 8 out of 10 on a pain scale. Pain began 2-3 days ago. Historical: - Allergies: 12:05 Bactrim; hb 12:05 Sulfa (Sulfonamide Antibiotics); hb - PMHx: 12:05 Back pain; Depression; Diabetes - NIDDM; Enteritis; Hypertension; Lupus; Rheumatoid hb Arthritis; Sleep Apnea; - PSHx: 12:05 hysterectomy; hb - Immunization history:: Adult Immunizations unknown, . - Family history:: not pertinent, pertinent for. - Social history:: Smoking status: unknown. Screenin:30 [facility] ED Fall Risk Assessment (Adult) History of falling in the last 3 months, db including since admission No falls in past 3 months (0 pts) Confusion or Disorientation No (0 pts) Intoxicated or Sedated No (0 pts) Impaired Gait No (0 pts) Mobility Assist Device Used No (0 pt) Altered Elimination No (0 pt) Score/Fall Risk Level 0 - 2 = Low Risk Oriented to surroundings. Abuse screen: Denies threats or abuse. Denies injuries from another. Nutritional screening: No deficits noted. Tuberculosis screening: No symptoms or risk factors identified. Assessment: 12:46 Reassessment: Patient appears in no apparent distress at this time. Patient is alert, db oriented x 3, equal unlabored respirations, skin warm/dry/pink. right foot pain and toe cut. Patient states has been going on for a couple of days. General: Appears in no apparent distress. comfortable. Pain: Complains of pain in right foot. 12:47 Neuro: No deficits noted. Level of Consciousness is awake, alert, obeys commands, db Oriented to person, place, time, situation, Appropriate for age Speech is normal. Cardiovascular: No deficits noted. Respiratory: No deficits noted. GI: No deficits noted. No signs and/or symptoms were reported involving the gastrointestinal system. : No deficits noted. No signs and/or symptoms were reported regarding the genitourinary system. Vital Signs: 12:03 BP 233 / 106; Pulse 89; Resp 18; Temp 99.2(O); Pulse Ox 97% on R/A; Weight 83.91 kg; hb Height 5 ft. 1 in. (154.94 cm); Pain 8/10; 12:30 BP 179 / 99; Pulse 88; Resp 18; Pulse Ox 98% ; Pain 8/10; db 12:03 Body Mass Index 34.96 (83.91 kg, 154.94 cm) hb ED Course: 11:48 Patient arrived in ED. mr 11:59 Ko Alvarez MD is Attending Physician. rt 12:04 Marta Barnhart, ILAN is Primary Nurse. db 12:05 Triage completed. hb 12:05 Arm band placed on. hb 12:30 Patient has correct armband on for positive identification. Bed in low position. Side db rails up X 1. Pulse ox on. NIBP on. 12:30 No provider procedures requiring assistance completed. Patient did not have IV access db during this emergency room visit. Administered Medications: No medications were administered Medication: 12:30 VIS not applicable for this client. db Outcome: 12:19 Discharge ordered by . rt 12:30 Discharged to home ambulatory. db 12:30 Condition: stable 12:30 Discharge instructions given to patient, Instructed on discharge instructions, follow up and referral plans. Demonstrated understanding of instructions, Prescriptions given X 1. 12:49 Patient left the ED. db Signatures: Tasia Montiel Heather, RN RN Marta Pinzon RN RN db Ko Alvarez MD MD rt
--- NOTE | 2022-11-16 12:20 | EDPHYS ---
Physician Documentation [facility] Name: Bridgett Gotti Age: 72 yrs Sex: Female : 1950 Arrival Date: 11/16/2022 Time: 11:48 Bed 13 Private MD: ED Physician Ko Alvarez HPI: 11/16 12:21 This 72 yrs old Female presents to ER via Ambulatory with complaints of bilat foot pain.rt 12:21 Onset: The symptoms/episode began/occurred chronic. She presents to the ED with rt multiple chronic complaints. Patient's primary complaints seem to be due to her bilateral foot pain. She reports a chapping to the skin to the lower feet. Denies fever, chills. Patient also reports intermittent dizziness and headache that are not currently present, but of been present for several months. Patient states that he is she is homeless and depressed but denies any suicidal ideation. Denies other acute complaints at this time. Symptoms are mild in severity, no other aggravating alleviating factors. Pain is aching nature, nonradiating.. Historical: - Allergies: 12:05 Bactrim; hb 12:05 Sulfa (Sulfonamide Antibiotics); hb - PMHx: 12:05 Back pain; Depression; Diabetes - NIDDM; Enteritis; Hypertension; Lupus; Rheumatoid hb Arthritis; Sleep Apnea; - PSHx: 12:05 hysterectomy; hb - Immunization history:: Adult Immunizations unknown, . - Family history:: not pertinent, pertinent for. - Social history:: Smoking status: unknown. ROS: 12:21 Constitutional: Negative for fever, chills, and weight loss, Eyes: Negative for injury, rt pain, redness, and discharge, Neck: Negative for injury, pain, and swelling, Cardiovascular: Negative for chest pain, palpitations, and edema, Respiratory: Negative for shortness of breath, cough, wheezing, and pleuritic chest pain, Abdomen/GI: Negative for abdominal pain, nausea, vomiting, diarrhea, and constipation. 12:21 ENT: Positive for ear pain, Negative for rhinorrhea. 12:21 MS/extremity: Positive for bilateral foot pain. 12:21 Skin: Positive for crocked skin, Negative for cellulitis. 12:21 Neuro: Positive for dizziness, headache. 12:21 Psych: Positive for depression, Negative for suicidal ideation. Exam: 12:21 Constitutional: This is a well developed, well nourished patient who is awake, alert, rt and in no acute distress. Head/Face: Normocephalic, atraumatic. Eyes: Pupils equal round and reactive to light, extra-ocular motions intact. Lids and lashes normal. Conjunctiva and sclera are non-icteric and not injected. Cornea within normal limits. Periorbital areas with no swelling, redness, or edema. ENT: Nares patent. No nasal discharge, no septal abnormalities noted. Tympanic membranes are normal and external auditory canals are clear. Oropharynx with no redness, swelling, or masses, exudates, or evidence of obstruction, uvula midline. Mucous membranes moist. Neck: Trachea midline, no thyromegaly or masses palpated, and no cervical lymphadenopathy. Supple, full range of motion without nuchal rigidity, or vertebral point tenderness. No Meningismus. Chest/axilla: Normal chest wall appearance and motion. Nontender with no deformity. No lesions are appreciated. Cardiovascular: Regular rate and rhythm with a normal S1 and S2. No gallops, murmurs, or rubs. Normal PMI, no JVD. No pulse deficits. Respiratory: Lungs have equal breath sounds bilaterally, clear to auscultation and percussion. No rales, rhonchi or wheezes noted. No increased work of breathing, no retractions or nasal flaring. Abdomen/GI: Soft, non-tender, with normal bowel sounds. No distension or tympany. No guarding or rebound. No evidence of tenderness throughout. Skin: Warm, dry with normal turgor. Normal color with no rashes, no lesions, and no evidence of cellulitis. Neuro: Awake and alert, GCS 15, oriented to person, place, time, and situation. Cranial nerves II-XII grossly intact. Motor strength 5/5 in all extremities. Sensory grossly intact. Cerebellar exam normal. Normal gait. Psych: Awake, alert, with orientation to person, place and time. Behavior, mood, and affect are within normal limits. 12:21 Musculoskeletal/extremity: 1+ pedal pulses bilaterally, feet are warm, there is some cracked skin on some of the toes but without any surrounding erythema or other evidence of cellulitis, no purulent drainage. No deformities noted.. Vital Signs: 12:03 BP 233 / 106; Pulse 89; Resp 18; Temp 99.2(O); Pulse Ox 97% on R/A; Weight 83.91 kg; hb Height 5 ft. 1 in. (154.94 cm); Pain 8/10; 12:30 BP 179 / 99; Pulse 88; Resp 18; Pulse Ox 98% ; Pain 8/10; db 12:03 Body Mass Index 34.96 (83.91 kg, 154.94 cm) hb MDM: 12:04 Patient medically screened. rt 12:26 Differential diagnosis: Cellulitis, abscess, septic arthritis, peripheral arterial rt disease. Data reviewed: vital signs, nurses notes, old medical records. ED course: Presents to the ED with multiple complaints early chronic insomnia most localized to her feet. There is some cracked skin but I see no evidence of infection. No evidence for arterial occlusion or DVT. No further work-up is indicated this time. We will start patient on gabapentin. She is no current headache or dizziness. Patient with hypertension, due to nonadherence with medications. She was instructed to follow-up closely with her primary care for further management. No further work-up syndicate this time, patient stable for outpatient care. Administered Medications: No medications were administered Disposition Summary: 11/16/22 12:19 Discharge Ordered Location: Home rt Problem: chronic rt Symptoms: are unchanged rt Condition: Stable rt Diagnosis - Pain in right foot rt - Pain in left foot rt Followup: rt - With: Private Physician - When: 2 - 3 days - Reason: Discharge Instructions: - Discharge Summary Sheet rt - Musculoskeletal Pain rt Forms: - Medication Reconciliation Form rt - Thank You Letter rt - Antibiotic Education rt - Prescription Opioid Use rt Prescriptions: - Gabapentin 100 mg tab - take 1 tablet by ORAL route every 8 hours; 30 tablet; Refills: 0, Product rt Selection Permitted Signatures: Kerrie Cortez RN RN Marta Pinzon RN RN Ko Sanders MD MD rt
[2022-11-16 13:07] VITALS: TEMP 99.2
[2022-11-16 13:09] VITALS: BP 179/99; O2SAT 98
== END 2022-11-16 12:49 | disposition home or self-care (01) ==
LOC: ER 11:45
DX: M79.672 Pain in left foot (principal); M79.671 Pain in right foot; Z88.1 Allergy status to other antibiotic agents
CPT/HCPCS: 99283

== ENCOUNTER 2023-04-09 10:37 | Emergency (ER) | payer OTHER ==
--- OUTSIDE RECORDS SUMMARY | 2023-04-09 10:43 | XMS REPORT | Continuity of Care Document ---
:1950 Author Organization [facility] t Address [address] [place] [address] [address] [place] [address] Care Team Providers Name Role Phone SALIMA ERICKA Primary Care Physician Unavailable CHLOE ALEJANDRA Attending Clinician Unavailable TODD PURDY Attending Clinician Unavailable TODD PURDY Attending Clinician Unavailable Doctor Unassigned, [place] Attending Clinician Unavailable MARINA BAKER Attending Clinician Unavailable Stacie Lagos MD Attending Clinician STACIE LAGOS Attending Clinician Unavailable Payers Payer Name Policy Type Policy Number Effective Date Expiration Date S jono MEDICARE PART A [id number] 2017 \T\ B 00:00:00 Problems Condition Condition Condition Status Onset Resolution Last Treating Co mments Source Name Details Category Date Date Treatment Clinician Date Mass of Mass of Disease Active Univers lower lower 2-27 ity of inner inner 00:00: [place] quadrant quadrant 00 Medica l of left of left Branch breast breast BMI BMI Disease Active Univers 36.0-36.9, 36.0-36.9, 2-27 it y of adult adult 00:00: [place] 00 Medical Branch Hypertensi Hypertensi Disease Active U nivers on, on, 1-13 ity of uncontroll uncontroll [place] Asymptomat Asymptomat Disease Active U nivers ic ic 1-13 ity of hypertensi hypertensi [place] ve urgency ve urgency 00 Me dical Branch Emphysema Emphysema Disease Active Uni vers lung lung 13 ity of 00:00: [place] 00 Medical Branch 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 Grade 3/6 harsh systolic murmur noted at right upper intercost al region, [...] reaction 00 Medica l ics) s Branch Sulfa Propensi Active Rash Univers (Sulfona ty to 1-13 ity of mide adverse 00:00: [place] Antibiot reaction 00 Medica l ics) s Branch Social History Social Habit Start Date Stop Date Quantity Comments Source Exposure to 2023-01-12 2023-01-22 Not sure [facility] SARS-CoV-2 00:00:00 10:13:00 [place] [facility] (event) Branch Alcohol intake 2023-01-22 2023-01-22 1 /d University of 00:00:00 00:00:00 [facility] Tobacco use and 2023-01-22 2023-01-22 Smokeless tobacco Un iversity of exposure 00:00:00 00:00:00 non-user [facility] History of 1998-11-26 [facility] Sex [birth year] Universit y of 00:00:00 00:00:00 [facility] Smoking Status Start Date Stop Date Source Ex-smoker 2023-01-22 00:00:00 2023-01-22 00:00:00 [facility] Medications Ordered Filled Start Stop Current Ordering Indication Dosage Frequency Signature Comments Components Source Medication Medication Date Date Medication? Clinician (SIG) Name Name CLONIDINE Yes Take by Unive rs HCL ORAL 2- mouth. ity of 10:35: [place] [address] Medical Branch CITALOPRAM Yes 1{tbl} Take 1 Tab Univers HYDROBROMID 2-27 by mouth. ity of E (CELEXA 10:35: [place] ORAL) Medical Branch ALBUTEROL Yes Inhale. Unive rs INHALE 2-27 ity of 10:35: [place] [address] Medical Branch metoprolol Yes 50mg Take 1 Unive rs succinate 2-27 tablet by ity o f XL 50 mg 24 10:35: [place] 14 the Medical morning. Branch atorvastati Yes 40mg Take 1 Univ ers n 40 mg 2-27 tablet by ity of tablet 10:35: mouth at [place] [address] bedtime. Medical Branch gabapentin Yes 300mg Take 1 Univ ers 300 mg 2-27 capsule by ity of capsule 10:35: mouth in [place] [address] the Medical morning Branch and 1 capsule at noon and 1 capsule in the evening. clopidogreL Yes 75mg Take 1 Univ ers 75 mg 2-27 tablet by ity of tablet 10:35: mouth in [place] [address] the Medical morning. Branch DULoxetine Yes Take by Univ ers 60 mg CDRS 2-27 mouth. ity of 10:35: [place] [address] Medical Branch aspirin 81 Yes Take by Univ ers mg Cap 2-27 mouth. ity of 10:35: [place] 14 Medical Branch LISINOPRIL Yes 20mg Take 20 mg U nivers ORAL 2-27 by mouth. ity of 10:35: [place] [address] Medical Branch AMLODIPINE Yes 1{tbl} Take 1 Tab Univers BESYLATE 2-27 by mouth. ity of (NORVASC 10:35: [place] ORAL) Medical Branch CLONIDINE Yes Take by Unive rs HCL ORAL 2-27 mouth. ity of 10:35: [place] [address] Medical Branch CITALOPRAM Yes 1{tbl} Take 1 Tab Univers HYDROBROMID 2-27 by mouth. ity of E (CELEXA 10:35: [place] ORAL) Medical Branch ALBUTEROL Yes Inhale. Unive rs INHALE 2-27 ity of 10:35: [place] [address] Medical Branch metoprolol Yes 50mg Take 1 Unive rs succinate 2-27 tablet by ity o f XL 50 mg 24 10:35: mouth [place] tablet 14 the Medical morning. Branch atorvastati Yes 40mg Take 1 Univ ers n 40 mg 2-27 tablet by ity of tablet 10:35: mouth at [place] [address] bedtime. Medical Branch gabapentin Yes 300mg Take 1 Univ ers 300 mg 2-27 capsule by ity of capsule 10:35: mouth in [place] [address] the Medical morning Branch and 1 capsule at noon and 1 capsule in the evening. clopidogreL Yes 75mg Take 1 Univ ers 75 mg 2-27 tablet by ity of tablet 10:35: mouth in [place] [address] the Medical morning. Branch DULoxetine Yes Take by Univ ers 60 mg CDRS 2-27 mouth. ity of 10:35: [place] [address] Medical Branch aspirin 81 0 Yes Take by Univ ers mg Cap 2-27 mouth. ity of 10:35: [place] [address] Medical Branch LISINOPRIL Yes 20mg Take 20 mg U nivers ORAL 2-27 by mouth. ity of 10:35: [place] [address] Medical Branch AMLODIPINE Yes 1{tbl} Take 1 Tab Univers BESYLATE 2-27 by mouth. ity of (NORVASC 10:35: [place] ORAL) Medical Branch CLONIDINE 2023-0 Yes Take by Unive rs HCL ORAL 2-27 mouth. ity of 10:35: [place] [address] Medical Branch CITALOPRAM Yes 1{tbl} Take 1 Tab Univers HYDROBROMID 2-27 by mouth. ity of E (CELEXA 10:35: [place] ORAL) Medical Branch ALBUTEROL Yes Inhale. Unive rs INHALE 2-27 ity of 10:35: [place] [address] Medical Branch metoprolol Yes 50mg Take 1 Unive rs succinate 2-27 tablet by ity o f XL 50 mg 24 10:35: [place] 14 the Medical morning. Branch atorvastati Yes 40mg Take 1 Univ ers n 40 mg 2-27 tablet by ity of tablet 10:35: mouth at [place] [address] bedtime. Medical Branch gabapentin Yes 300mg Take 1 Univ ers 300 mg 2-27 capsule by ity of capsule 10:35: mouth in [place] [address] the Medical morning Branch and 1 capsule at noon and 1 capsule in the evening. clopidogreL Yes 75mg Take 1 Univ ers 75 mg 2-27 tablet by ity of tablet 10:35: mouth in [place] [address] the Medical morning. Branch DULoxetine Yes Take by Univ ers 60 mg CDRS 2-27 mouth. ity of 10:35: [address] Branch aspirin 81 Yes Take by Univ ers mg Cap 2-27 mouth. ity of 10:35: [place] [address] Medical Branch LISINOPRIL Yes 20mg Take 20 mg U nivers ORAL 2-27 by mouth. ity of 10:35: [place] [address] Medical Branch AMLODIPINE Yes 1{tbl} Take 1 Tab Univers BESYLATE 2-27 by mouth. ity of (NORVASC 10:35: [place] ORAL) Medical Branch CLONIDINE Yes Take by Unive rs HCL ORAL 2-27 mouth. ity of 10:35: [place] [address] Medical Branch CITALOPRAM Yes 1{tbl} Take 1 Tab Univers HYDROBROMID 2-27 by mouth. ity of E (CELEXA 10:35: [place] ORAL) Medical Branch ALBUTEROL Yes Inhale. Unive rs INHALE 2-27 ity of 10:35: [place] 14 Medical Branch metoprolol Yes 50mg Take 1 Unive rs succinate 2-27 tablet by ity o f XL 50 mg 24 10:35: [place] 14 the Medical morning. Branch atorvastati Yes 40mg Take 1 Univ ers n 40 mg 2-27 tablet by ity of tablet 10:35: mouth at [place] [address] bedtime. Medical Branch gabapentin Yes 300mg Take 1 Univ ers 300 mg 2-27 capsule by ity of capsule 10:35: mouth in [place] [address] the Medical morning Branch and 1 capsule at noon and 1 capsule in the evening. clopidogreL Yes 75mg Take 1 Univ ers 75 mg 2-27 tablet by ity of tablet 10:35: mouth in [place] [address] the Medical morning. Branch DULoxetine Yes Take by Univ ers 60 mg CDRS 2-27 mouth. ity of 10:35: [address] aspirin 81 Yes Take by Univ ers mg Cap 2-27 mouth. ity of 10:35: [address] Branch LISINOPRIL Yes 20mg Take 20 mg U nivers ORAL 2-27 by mouth. ity of 10:35: [address] AMLODIPINE Yes 1{tbl} Take 1 Tab Univers BESYLATE 2-27 by mouth. ity of (NORVASC 10:35: [place] ORAL) [address] [place] [address] Branch CLONIDINE Yes Take by Unive rs HCL ORAL 2-27 mouth. ity of 10:35: [address] Branch CITALOPRAM Yes 1{tbl} Take 1 Tab Univers HYDROBROMID 2-27 by mouth. ity of E (CELEXA 10:35: [place] ORAL) [address] [place] [address] Branch ALBUTEROL Yes Inhale. Unive rs INHALE 2-27 ity of 10:35: [address] metoprolol 0 Yes 50mg Take 1 Unive rs succinate 2-27 tablet by ity o f XL 50 mg 24 10:35: [place] 14 the Medical morning. Branch atorvastati Yes 40mg Take 1 Univ ers n 40 mg 2-27 tablet by ity of tablet 10:35: mouth at [place] [address] bedtime. Medical Branch gabapentin 0 Yes 300mg Take 1 Univ ers 300 mg 2-27 capsule by ity of capsule 10:35: mouth in [place] [address] the Medical morning Branch and 1 capsule at noon and 1 capsule in the evening. clopidogreL 2022-0 Yes 75mg Take 1 Univ ers 75 mg 2-27 tablet by ity of tablet 10:35: mouth in [place] [address] the Medical morning. Branch DULoxetine Yes Take by Univ ers 60 mg CDRS 2-27 mouth. ity of 10:35: [place] [address] Medical Branch aspirin 81 0 Yes Take by Univ ers mg Cap 2-27 mouth. ity of 10:35: [place] [address] Medical Branch LISINOPRIL Yes 20mg Take 20 mg U nivers ORAL 2-27 by mouth. ity of 10:35: [place] [address] Medical Branch AMLODIPINE Yes 1{tbl} Take 1 Tab Univers BESYLATE 2-27 by mouth. ity of (NORVASC 10:35: [place] ORAL) Medical Branch CLONIDINE Yes Take by Unive rs HCL ORAL 2-27 mouth. ity of 10:35: [address] Branch CITALOPRAM Yes 1{tbl} Take 1 Tab Univers HYDROBROMID 2-27 by mouth. ity of E (CELEXA 10:35: [place] ORAL) Medical Branch ALBUTEROL Yes Inhale. Unive rs INHALE 2-27 ity of 10:35: [place] [address] Medical Branch metoprolol Yes 50mg Take 1 Unive rs succinate 2-27 tablet by ity o f XL 50 mg 24 10:35: [place] 14 the Medical morning. Branch atorvastati Yes 40mg Take 1 Univ ers n 40 mg 2-27 tablet by ity of tablet 10:35: mouth at [place] [address] bedtime. Medical Branch gabapentin 0 Yes 300mg Take 1 Univ ers 300 mg 2-27 capsule by ity of capsule 10:35: mouth in [place] [address] the Medical morning Branch and 1 capsule at noon and 1 capsule in the evening. clopidogreL 0 Yes 75mg Take 1 Univ ers 75 mg 2-27 tablet by ity of tablet 10:35: mouth in [place] [address] the Medical morning. Branch DULoxetine Yes Take by Univ ers 60 mg CDRS 2-27 mouth. ity of 10:35: [address] Branch aspirin 81 Yes Take by Univ ers mg Cap 2-27 mouth. ity of 10:35: [place] [address] Medical Branch LISINOPRIL Yes 20mg Take 20 mg U nivers ORAL 2-27 by mouth. ity of 10:35: [place] [address] Medical Branch AMLODIPINE Yes 1{tbl} Take 1 Tab Univers BESYLATE 2-27 by mouth. ity of (NORVASC 10:35: [place] ORAL) Medical Branch CLONIDINE Yes Take by Unive rs HCL ORAL 2-27 mouth. ity of 10:35: [address] Branch CITALOPRAM Yes 1{tbl} Take 1 Tab Univers HYDROBROMID 2-27 by mouth. ity of E (CELEXA 10:35: [place] ORAL) [address] [place] [address] Branch ALBUTEROL Yes Inhale. Unive rs INHALE 2-27 ity of 10:35: [address] Branch metoprolol Yes 50mg Take 1 Unive rs succinate 2-27 tablet by ity o f XL 50 mg 24 10:35: mouth [place] tablet 14 the Medical morning. Branch atorvastati Yes 40mg Take 1 Univ ers n 40 mg 2-27 tablet by ity of tablet 10:35: mouth at [place] [address] bedtime. Medical Branch gabapentin Yes 300mg Take 1 Univ ers 300 mg 2-27 capsule by ity of capsule 10:35: mouth in [place] [address] the Medical morning Branch and 1 capsule at noon and 1 capsule in the evening. clopidogreL Yes 75mg Take 1 Univ ers 75 mg 2-27 tablet by ity of tablet 10:35: mouth in [place] [address] the Medical morning. Branch DULoxetine Yes Take by Univ ers 60 mg CDRS 2-27 mouth. ity of 10:35: [address] Branch aspirin 81 0 Yes Take by Univ ers mg Cap 2-27 mouth. ity of 10:35: [address] Branch LISINOPRIL Yes 20mg Take 20 mg U nivers ORAL 2-27 by mouth. ity of 10:35: [address] Branch AMLODIPINE Yes 1{tbl} Take 1 Tab Univers BESYLATE 2-27 by mouth. ity of (NORVAS 10:35: [place] ORAL) 14 [facility] valACYclovi Yes Univer s r 500 mg 2-23 ity of tablet 00:00: [place] 00 [facility] valACYclovi Yes Univer s r 500 mg 2-23 ity of tablet 00:00: [place] [facility] valACYclovi Yes Univer s r 500 mg 2-23 ity of tablet 00:00: [place] [facility] valACYclovi Yes Univer s r 500 mg 2-23 ity of tablet 00:00: [place] [facility] valACYclovi Yes Univer s r 500 mg 2-23 ity of tablet 00:00: [place] [facility] valACYclovi Yes Univer s r 500 mg 2-23 ity of tablet 00:00: [place] [facility] valACYclovi Yes Univer s r 500 mg 2-23 ity of tablet 00:00: [address] ALBUTEROL Yes Inhale. Unive rs INHALE 1-13 ity of 16:20: [address] ALBUTEROL Yes Inhale. Unive rs INHALE 1-13 ity of 16:20: [address] ALBUTEROL Yes Inhale. Unive rs INHALE 1-13 ity of 16:20: [address] ALBUTEROL Yes Inhale. Unive rs INHALE 1-13 ity of 16:20: [address] ALBUTEROL Yes Inhale. Unive rs INHALE 1-13 ity of 16:20: [address] LISINOPRIL Yes 2{tbl} Take 2 Uni vers ORAL 1-13 Tabs by ity of 16:16: mouth. [address] AMLODIPINE Yes 1{tbl} Take 1 Tab Univers BESYLATE 1-13 by mouth. ity of (NORVAS 16:16: [place] ORAL) [address] [place] [address] CLONIDINE Yes Take by Unive rs HCL ORAL 1-13 mouth. ity of 16:16: [address] CITALOPRAM Yes 1{tbl} Take 1 Tab Univers HYDROBROMID 1-13 by mouth. ity of E (CELEXA 16:16: [place] ORAL) [address] [place] [address] LISINOPRIL Yes 2{tbl} Take 2 Uni vers ORAL 1-13 Tabs by ity of 16:16: mouth. [address] AMLODIPINE Yes 1{tbl} Take 1 Tab Univers BESYLATE 1-13 by mouth. ity of (NORVASC 16:16: [place] ORAL) [address] [place] [address] CLONIDINE Yes Take by Unive rs HCL ORAL 1-13 mouth. ity of 16:16: [address] CITALOPRAM Yes 1{tbl} Take 1 Tab Univers HYDROBROMID 1-13 by mouth. ity of E (CELEXA 16:16: [place] ORAL) [address] [place] [address] LISINOPRIL Yes 2{tbl} Take 2 Uni vers ORAL 1-13 Tabs by ity of 16:16: mouth. [address] AMLODIPINE Yes 1{tbl} Take 1 Tab Univers BESYLATE 1-13 by mouth. ity of (NORVASC 16:16: [place] ORAL) [address] [place] [address] CLONIDINE Yes Take by Unive rs HCL ORAL 1-13 mouth. ity of 16:16: [address] CITALOPRAM Yes 1{tbl} Take 1 Tab Univers HYDROBROMID 1-13 by mouth. ity of E (CELEXA 16:16: [place] ORAL) [address] [place] [address] LISINOPRIL Yes 2{tbl} Take 2 Uni vers ORAL 1-13 Tabs by ity of 16:16: mouth. [address] AMLODIPINE Yes 1{tbl} Take 1 Tab Univers BESYLATE 1-13 by mouth. ity of (NORVASC 16:16: [place] ORAL) [address] [place] [address] CLONIDINE Yes Take by Unive rs HCL ORAL 1-13 mouth. ity of 16:16: [address] CITALOPRAM Yes 1{tbl} Take 1 Tab Univers HYDROBROMID 1-13 by mouth. ity of E (CELEXA 16:16: [place] ORAL) [address] [place] [address] LISINOPRIL Yes 2{tbl} Take 2 Uni vers ORAL 1-13 Tabs by ity of 16:16: mouth. [address] AMLODIPINE Yes 1{tbl} Take 1 Tab Univers BESYLATE 1-13 by mouth. ity of (NORVASC 16:16: [place] ORAL) [address] [place] [address] CLONIDINE Yes Take by Unive rs HCL ORAL 1-13 mouth. ity of 16:16: [address] CITALOPRAM Yes 1{tbl} Take 1 Tab Univers HYDROBROMID 1-13 by mouth. ity of E (CELEXA 16:16: [place] ORAL) [address] [place] [address] ALBUTEROL Yes Inhale. Unive rs INHALE 1-13 ity of 10:20: [address] LISINOPRIL Yes 2{tbl} Take 2 Uni vers ORAL 1-13 Tabs by ity of 10:16: mouth. [address] AMLODIPINE Yes 1{tbl} Take 1 Tab Univers BESYLATE 1-13 by mouth. ity of (NORVASC 10:16: [place] ORAL) [address] [place] [address] CLONIDINE Yes Take by Unive rs HCL ORAL 1-13 mouth. ity of 10:16: [address] CITALOPRAM Yes 1{tbl} Take 1 Tab Univers HYDROBROMID 1-13 by mouth. ity of E (CELEXA 10:16: [place] ORAL) [address] [place] [address] Immunizations Ordered Filled Immunization Date Status Comments [facility] e Immunization Name Name SARS-COV-2 COVID-19 2021-03-04 Completed Unive rsity of PFIZER VACCINE 00:00:00 [facility] SARS-COV-2 COVID-19 2021-03-04 Completed Unive rsity of PFIZER VACCINE 00:00:00 [facility] SARS-COV-2 COVID-19 2021-03-04 Completed Unive rsity of PFIZER VACCINE 00:00:00 [facility] SARS-COV-2 COVID-19 2021-03-04 Completed Unive rsity of PFIZER VACCINE 00:00:00 [facility] SARS-COV-2 COVID-19 2021-03-04 Completed Unive rsity of PFIZER VACCINE 00:00:00 [facility] SARS-COV-2 COVID-19 2021-03-04 Completed Unive rsity of PFIZER VACCINE 00:00:00 [facility] Branch SARS-COV-2 COVID-19 2021-03-04 Completed Unive rsity of PFIZER VACCINE 00:00:00 [facility] Branch SARS-COV-2 COVID-19 2021-03-04 Completed Unive rsity of PFIZER VACCINE 00:00:00 [facility] SARS-COV-2 COVID-19 2021-03-04 Completed Unive rsity of PFIZER VACCINE 00:00:00 [facility] Branch SARS-COV-2 COVID-19 2021-03-04 Completed Unive rsity of PFIZER VACCINE 00:00:00 [facility] Branch SARS-COV-2 COVID-19 2021-02-11 Completed Unive rsity of PFIZER VACCINE 00:00:00 [facility] SARS-COV-2 COVID-19 2021-02-11 Completed Unive rsity of PFIZER VACCINE 00:00:00 [facility] SARS-COV-2 COVID-19 2021-02-11 Completed Unive rsity of PFIZER VACCINE 00:00:00 [facility] Branch SARS-COV-2 COVID-19 2021-02-11 Completed Unive rsity of PFIZER VACCINE 00:00:00 [facility] SARS-COV-2 COVID-19 2021-02-11 Completed Unive rsity of PFIZER VACCINE 00:00:00 [facility] SARS-COV-2 COVID-19 2021-02-11 Completed Unive rsity of PFIZER VACCINE 00:00:00 [facility] SARS-COV-2 COVID-19 2021-02-11 Completed Unive rsity of PFIZER VACCINE 00:00:00 [facility] SARS-COV-2 COVID-19 2021-02-11 Completed Unive rsity of PFIZER VACCINE 00:00:00 [facility] SARS-COV-2 COVID-19 2021-02-11 Completed Unive rsity of PFIZER VACCINE 00:00:00 [facility] SARS-COV-2 COVID-19 2021-02-11 Completed Unive rsity of PFIZER VACCINE 00:00:00 [facility] Vital Signs Vital Name Observation Time Observation Value Comments Source Systolic blood 2023-01-22 16:30:00 187 mm[Hg] Univer sity of pressure [place] [facility] Diastolic blood 2023-01-22 16:30:00 95 mm[Hg] Unive rsity of pressure [place] [facility] Heart rate 2023-01-22 16:22:00 72 /min Universi ty of [place] [facility] Body temperature 2023-01-22 16:22:00 36.89 Deborah Univ ersity of [facility] Branch Respiratory rate 2023-01-22 16:22:00 22 /min Univ ersity of [facility] Branch Body height 2023-01-22 16:22:00 154.9 cm Universi ty of [place] [facility] Body weight 2023-01-22 16:22:00 87 kg [facility]i ty of [place] [facility] BMI 2023-01-22 16:22:00 36.24 kg/m2 Universi ty of [facility] Branch Systolic blood 2020-03-08 19:57:00 188 mm[Hg] Univer sity of pressure [place] [facility] Diastolic blood 2020-03-08 19:57:00 102 mm[Hg] Unive rsity of pressure [facility] Branch Heart rate 2020-03-08 19:57:00 76 /min [facility]i ty [facility] [place] [facility] Body height 2020-03-08 19:54:00 152.4 cm [facility] [place] [facility] Body weight 2020-03-08 19:54:00 72.576 kg [facility]i ty [facility] [place] [facility] BMI 2020-03-08 19:54:00 31.25 kg/m2 [facility] [place] [facility] Systolic blood 2020-03-08 19:57:00 188 mm[Hg] Univer sity of pressure [place] [facility] Diastolic blood 2020-03-08 19:57:00 102 mm[Hg] Unive rsity of pressure [place] [facility] Heart rate 2020-03-08 19:57:00 76 /min Universi ty [facility] [place] [facility] Body height 2020-03-08 19:54:00 152.4 cm [facility] [place] [facility] Body weight 2020-03-08 19:54:00 72.576 kg [facility] [place] [facility] BMI 2020-03-08 19:54:00 31.25 kg/m2 [facility] [place] [facility] Procedures Procedure Date / Time Performing Clinician Source Performed BI BIOPSY LYMPHNODE 2023-04-04 16:33:44 Todd Purdy [facility] AXILLARY LEFT Medical Branch BI US GUIDED CORE BREAST 2023-04-04 16:28:40 Todd Purdy [facility] BIOPSY LEFT Medical Branch BI ULTRASOUND BREAST 2023-03-21 14:51:00 Todd Purdy [facility] COMPLETE LEFT [facility] Branch BI GERALD BASINS LEFT 2023-03-21 14:51:00 Todd Purdy [facility] BI DIAGNOSTIC 2023-03-21 14:28:37 Todd Purdy [facility] TOMOSYNTHESIS BILATERAL Medical Branch ASSIGNMENT OF BENEFITS 2023-01-22 16:16:56 Doctor Unassigned, No [facility] Name Medical Branch ASSIGNMENT OF BENEFITS 2020-03-08 19:43:50 Doctor Unassigned, No [facility] Encounters Start End Encounter Admission Attending Care Care Encounter Source Date/Time Date/Time Type Type Clinicians Facility Department ID 2023-04-09 2023-04-09 Outpatient R PETERSONIVELISSE [facility] B [id number] Univers 10:00:00 10:00:00 TODD PURDY [facility] 2023-04-04 2023-04-04 [facility] [id number] [facility] 10:04:09 23:59:00 Encounter Todd FOXQUENTIN [id number] ity [facility] [id number] [facility] [id number] [address] 2023-04-04 2023-04-04 Outpatient R GURWINDER TODD [facility] B [id number] Univers 10:03:28 10:03:28 GURWINDER TODD [facility] 2023-04-04 2023-04-04 [facility] [id number] Univers 10:03:28 10:03:28 [id number] [id number] [facility] [id number] [place] [address] Branch 2023-03-21 2023-03-21 [facility] [id number] Univers 08:05:52 23:59:00 Encounter Todd FLYNN [id number] [facility] [id number] [facility] [id number] [facility] [address] 2023-03-21 2023-03-21 Outpatient R TODD PURDY [facility] B [id number] Univers 08:05:08 23:59:00 [facility] 2023-03-21 2023-03-21 [facility] [id number] Univers 08:05:08 23:59:00 Encounter Todd FLYNN [id number] ity of [place] [id number] [facility] [id number] [facility] [address] 2023-03-21 2023-03-21 Telephone [facility] [id number] Univers 00:00:00 00:00:00 Todd CHILDERS [id number] it y of [facility]S [id number] [facility] [id number] [facility] [address] 2023-01-22 2023-01-22 Outpatient R TODD PURDY [facility] B [id number] Univers 10:30:00 10:44:14 TAYLERTODD BEAR [facility] 2023-01-22 2023-01-22 Office [facility] [id number] Univers 10:30:00 10:44:14 Visit Todd CHILDERS [id number] it y of WOMEN'S [id number] [facility] [id number] [facility] [address] 2023-01-22 2023-01-22 Orders Doctor THORNTON [id number] Univers 00:00:00 00:00:00 Only Unassigned, [place] [id number] [facility] [place] [facility] [id number] Carlos [phone] [facility] [address] 2021-04-04 2021-04-04 Letter Doctor NORBERTO [id number] Univers 00:00:00 00:00:00 (Out) Unassigned, [place] [id number] [facility]y [facility] [place] [facility] [id number] Carlos as [phone] [facility] [address] 2021-04-04 2021-04-04 Letter Doctor NORBERTO [id number] Univers 00:00:00 00:00:00 (Out) Unassigned, [place] [id number] [facility] [place] [facility] [id number] Carlos as [phone] [address] 2021-03-04 2021-03-04 Outpatient Aadm BAKER, [facility] [id number] Univers 09:10:00 09:10:00 MARINA ity [facility] 2021-02-11 2021-02-11 Outpatient [facility] [id number] Univers 09:10:00 09:10:00 ity [facility] 2020-03-08 2020-03-08 [facility] [id number] 14:45:08 15:08:51 Visit [facility] [id number] Surgical [id number] Specialti [phone] [address] 2020-03-08 2020-03-08 [facility] [id number] Univers 14:45:08 15:08:51 Visit [facility] [id number] it y of Surgical [id number] Carlos as Specialti [id number] [place]ical [address] 2020-03-08 2020-03-08 [facility] [id number] Univers 14:30:00 14:30:00 [facility] 2020-03-08 Orders Doctor THORNTON [id number] Univers 00:00:00 00:00:00 Only Unassigned, [place] [id number] [facility] [place] [facility] [id number] Carlos as [phone] [facility] [address] Results This patient has no known results.
[2023-04-09 11:39] LABS: Absolute Lymphocytes (CBC) 1.4 K/uL (0.7-4.9); Hematocrit 40.7 % (36.0-45.0); Lymphocytes % 25.8 % (15.3-44.8); MCV 91.9 fL (80-100); MPV 9.2 fL (7.6-11.3); RBC Red Blood Cell Count 4.43 M/uL (3.86-4.86)
[2023-04-09 11:59] LABS: Magnesium 1.2 mg/dL (1.6-2.4); Potassium 3.7 mEq/L (3.5-5.1); Troponin High Sensitivity 46.2 pg/mL (<58.9)
--- NOTE | 2023-04-09 12:09 | RAD REPORT ---
EXAM DESCRIPTION: RAD - Chest Single View - 04/09/2023 11:45 am CLINICAL HISTORY: CHEST PAIN COMPARISON: Chest Single View dated 07/19/2022; Chest Single View dated 10/12/2020; Chest Single View dated 01/20/2020; Chest Single View dated 11/27/2019 FINDINGS: Lines: None. Lungs: No evidence of edema or pneumonia. Pleural: No significant pleural effusions or pneumothorax. Cardiac: The heart size is within normal limits. Mediastinum: Within normal limits. Bones: No acute fractures. Other: None IMPRESSION: No acute cardiopulmonary disease.
[2023-04-09 12:42] LABS: Protime INR 1.03
--- NOTE | 2023-04-09 13:56 | RAD REPORT ---
EXAM DESCRIPTION: CT - Chest For Pe Angio - 04/09/2023 1:39 pm CLINICAL HISTORY: Chest pain. CHEST PAIN COMPARISON: Chest For Pe Angio dated 07/19/2022; Chest Single View dated 04/09/2023 TECHNIQUE: CT angiogram of the pulmonary arteries was performed with MIP. All CT scans are performed using dose optimization technique as appropriate and may include automated exposure control or mA/KV adjustment according to patient size. FINDINGS: No evidence of pulmonary thromboembolism. No acute aortic finding demonstrated. The lungs are clear. No significant pericardial or pleural fluid. No concerning bony finding. IMPRESSION: No evidence of pulmonary thromboembolism. No acute lung findings.
--- NOTE | 2023-04-09 14:20 | ER ---
Nurse's Notes [facility] Name: Bridgett Gotti Age: 72 yrs Sex: Female : 1950 Arrival Date: 04/09/2023 Time: 10:37 Bed 7 Private MD: Diagnosis: Essential (primary) hypertension;Shortness of breath Presentation: 04/09 10:44 Chief complaint: Patient states: Went to [facility], they check your blood pressure nj1 and told it was 200/110 and was advised to come to ED for further treatment. Coronavirus screen: Vaccine status: Patient reports receiving the 2nd dose of the covid vaccine. Ebola Screen: Patient denies travel to an Ebola-affected area in the 21 days before illness onset. Initial Sepsis Screen: Does the patient meet any 2 criteria? HR > 90 bpm. No. Patient's initial sepsis screen is negative. Does the patient have a suspected source of infection? No. Patient's initial sepsis screen is negative. Risk Assessment: Do you want to hurt yourself or someone else? Patient reports no desire to harm self or others. Onset of symptoms was April 09, 2023. 10:44 Method Of Arrival: Ambulatory nj1 10:44 Acuity: LASHONDA 2 nj1 Historical: - Allergies: 10:48 Sulfa (Sulfonamide Antibiotics); nj1 10:48 Bactrim; nj1 - Home Meds: 10:54 atorvastatin 40 mg oral tablet [Active]; duloxetine 60 mg oral capsule,delayed release nj1 (e.c.) [Active]; metoprolol succinate 50 mg oral Tablet, Extended Release 24 hr [Active]; amlodipine 10 mg tablet [Active]; lisinopril 20 mg Oral tablet [Active]; clopidogrel 75 mg oral tablet 1 tab daily [Active]; aspirin 81 mg oral tablet, delayed release (enteric coated) 1 tab daily [Active]; gabapentin 300 mg oral Tablet, Extended Release 24 hr 1 tabs every evening [Active]; - PMHx: 10:48 Hypertension; Lupus; Rheumatoid Arthritis; Diabetes - NIDDM; Atrial fibrillation; Back nj1 pain; Depression; Enteritis; Sleep Apnea; - PSHx: 10:48 hysterectomy; nj1 - Immunization history:: Client reports receiving the 2nd dose of the Covid vaccine. - Social history:: Smoking status: Patient/guardian denies using tobacco, the patient reports quitting approximately 24 years ago. Screenin:32 Abuse screen: Denies threats or abuse. Nutritional screening: No deficits noted. ap3 Tuberculosis screening: No symptoms or risk factors identified. 11:32 [facility] ED Fall Risk Assessment (Adult) History of falling in the last 3 months, ap3 including since admission No falls in past 3 months (0 pts). Assessment: 11:31 General: Appears in no apparent distress. Behavior is calm, cooperative, appropriate ap3 for age. Pain: Denies pain. Neuro: Level of Consciousness is awake, alert, obeys commands, Oriented to person, place, time, situation. Cardiovascular: Patient's skin is warm and dry. Respiratory: Airway is patent Respiratory effort is even, unlabored, Respiratory pattern is regular, symmetrical. 11:31 Reassessment: patient reports recent dx of breast cancer and was at [facility] to go ap3 over test results and next steps in treatment plans. 13:00 Reassessment: Patient appears in no apparent distress at this time. No changes from ko1 previously documented assessment. Patient and/or family updated on plan of care and expected duration. Pain level reassessed. Patient is alert, oriented x 3, equal unlabored respirations, skin warm/dry/pink. Patient states feeling better. Vital Signs: 10:44 BP 132 / 99; Pulse 122; Resp 18; Temp 98.8; Pulse Ox 98% ; nj1 11:32 BP 169 / 98; Pulse 107; Pulse Ox 98% on R/A; ap3 12:30 BP 170 / 92; Pulse 101; Resp 18; Pulse Ox 98% ; ko1 13:00 BP 168 / 94; Pulse 100; Resp 18; Pulse Ox 97% ; ko1 ED Course: 10:39 Patient arrived in ED. rg4 10:44 Gabe Waggoner DO is Attending Physician. ms3 10:48 Triage completed. nj1 10:53 Arm band placed on right wrist. nj1 11:22 Caroline Hayward, ILAN is Primary Nurse. ap3 11:30 Initial lab(s) drawn, by tx, sent to lab. Inserted saline lock: 20 gauge in right ap3 antecubital area, using aseptic technique. Blood collected. 11:32 Patient has correct armband on for positive identification. Bed in low position. Call ap3 light in reach. Side rails up X 1. cardiac monitor on. Pulse ox on. NIBP on. 11:46 XRAY Chest (1 view) In Process Unspecified. EDMS 11:52 EKG done, by ED staff, reviewed by Gabe Waggoner DO. ap3 13:41 CT Chest For PE Angio In Process Unspecified. EDMS 14:26 No provider procedures requiring assistance completed. IV discontinued, intact, ko1 bleeding controlled, No redness/swelling at site. Pressure dressing applied. Administered Medications: No medications were administered Medication: 11:32 VIS not applicable for this client. ap3 Outcome: 14:19 Discharge ordered by MD. ms3 14:26 Discharged to home ambulatory, with family. ko1 14:26 Condition: improved 14:26 Discharge instructions given to patient, family, Instructed on discharge instructions, follow up and referral plans. medication usage, Demonstrated understanding of instructions, follow-up care, medications. 14:27 Patient left the ED. ko1 Signatures: Dispatcher [employer] EDMS Maya Vincent rg4 Caroline Hayward, RN RN ap3 Gabe Waggoner DO DO ms3 Danni Almaraz, RN RN ko1 Jennifer Hermosillo, RN RN nj1
--- NOTE | 2023-04-09 14:20 | EDPHYS ---
Physician Documentation [facility] Name: Bridgett Gotti Age: 72 yrs Sex: Female : 1950 Arrival Date: 04/09/2023 Time: 10:37 Bed 7 Private MD: ED Physician Gabe Waggoner HPI: 04/09 14:19 This 72 yrs old Female presents to ER via Ambulatory with complaints of High Blood ms3 Pressure. 14:19 72-year-old female with past medical history of hypertension, lupus, breast cancer, ms3 atrial fibrillation presents for hypertension. Patient states her blood pressure was 200/110 15 minutes prior to arrival.. Historical: - Allergies: 10:48 Sulfa (Sulfonamide Antibiotics); nj1 10:48 Bactrim; nj1 - Home Meds: 10:54 atorvastatin 40 mg oral tablet [Active]; duloxetine 60 mg oral capsule,delayed release nj1 (e.c.) [Active]; metoprolol succinate 50 mg oral Tablet, Extended Release 24 hr [Active]; amlodipine 10 mg tablet [Active]; lisinopril 20 mg Oral tablet [Active]; clopidogrel 75 mg oral tablet 1 tab daily [Active]; aspirin 81 mg oral tablet, delayed release (enteric coated) 1 tab daily [Active]; gabapentin 300 mg oral Tablet, Extended Release 24 hr 1 tabs every evening [Active]; - PMHx: 10:48 Hypertension; Lupus; Rheumatoid Arthritis; Diabetes - NIDDM; Atrial fibrillation; Back nj1 pain; Depression; Enteritis; Sleep Apnea; - PSHx: 10:48 hysterectomy; nj1 - Immunization history:: Client reports receiving the 2nd dose of the Covid vaccine. - Social history:: Smoking status: Patient/guardian denies using tobacco, the patient reports quitting approximately 24 years ago. ROS: 14:19 Constitutional: Negative for fever, and chills. Neck: Negative for injury, pain, and ms3 swelling, Cardiovascular: Negative for chest pain, and palpitations. 14:19 MS/Extremity: Negative for injury and deformity, Skin: Negative for injury, rash, and discoloration. 14:19 Respiratory: Positive for shortness of breath. 14:19 All other systems are negative. Exam: 14:19 Constitutional: This is a well developed, well nourished patient who is awake, alert, ms3 and in no acute distress. Head/Face: Normocephalic, atraumatic. Chest/axilla: Normal chest wall appearance and motion. Nontender with no deformity. Cardiovascular: Regular rate and rhythm with a normal S1 and S2. No gallops, murmurs, or rubs. Normal PMI, no JVD. No pulse deficits. Respiratory: Lungs have equal breath sounds bilaterally, clear to auscultation and percussion. No rales, rhonchi or wheezes noted. No increased work of breathing, no retractions or nasal flaring. Abdomen/GI: Soft, non-tender, with normal bowel sounds. No distension or tympany. No guarding or rebound. No evidence of tenderness throughout. Skin: Warm, dry with normal turgor. Normal color with no rashes, no lesions, and no evidence of cellulitis. MS/ Extremity: Pulses equal, no cyanosis. Neurovascular intact. Full, normal range of motion. 14:19 Psych: 15:05 ECG was reviewed by the Attending Physician. ms3 Vital Signs: 10:44 BP 132 / 99; Pulse 122; Resp 18; Temp 98.8; Pulse Ox 98% ; nj1 11:32 BP 169 / 98; Pulse 107; Pulse Ox 98% on R/A; ap3 12:30 BP 170 / 92; Pulse 101; Resp 18; Pulse Ox 98% ; ko1 13:00 BP 168 / 94; Pulse 100; Resp 18; Pulse Ox 97% ; ko1 MDM: 11:00 Patient medically screened. ms3 14:19 Differential diagnosis: hypertensive crisis, [place] vs Anemia vs A fib with RVR. Data ms3 reviewed: vital signs, nurses notes, lab test result(s), EKG, radiologic studies, and as a result, I will discharge patient. Independent interpretation of the following test(s) in the Emergency Department EKG: See my EKG interpretation above quality assurance monitor: rate is 97 beats/min, Rhythm is normal sinus rhythm, regular, with no ectopy, Interpretation: normal rate, normal rhythm. Counseling: I had a detailed discussion with the patient and/or guardian regarding: the historical points, exam findings, and any diagnostic results supporting the discharge/admit diagnosis, lab results, radiology results, the need for outpatient follow up, to return to the emergency department if symptoms worsen or persist or if there are any questions or concerns that arise at home. Response to treatment: the patient's symptoms have markedly improved after treatment, and as a result, I will discharge patient. Special discussion: I discussed with the patient/guardian in detail that at this point there is no indication for admission to the hospital. It is understood, however, that if the symptoms persist or worsen the patient needs to return immediately for re-evaluation. 04/09 11:00 Order name: Basic Metabolic Panel; Complete Time: 12:15 ms3 04/09 11:00 Order name: CBC with Diff; Complete Time: 12:15 ms3 04/09 11:00 Order name: D-Dimer; Complete Time: 13:16 ms3 04/09 11:00 Order name: Magnesium; Complete Time: 12:15 ms3 04/09 11:00 Order name: PT-INR; Complete Time: 13:16 ms3 04/09 11:00 Order name: Troponin HS; Complete Time: 12:15 ms3 04/09 11:00 Order name: XRAY Chest (1 view); Complete Time: 12:15 ms3 04/09 13:17 Order name: CT Chest For PE Angio; Complete Time: 14:13 ms3 04/09 11:00 Order name: EKG; Complete Time: 11:01 ms3 04/09 11:00 Order name: Cardiac monitoring; Complete Time: 11:30 ms3 04/09 11:00 Order name: EKG - Nurse/Tech; Complete Time: 11:52 ms3 04/09 11:00 Order name: IV Saline Lock; Complete Time: 11:30 ms3 04/09 11:00 Order name: Labs collected and sent; Complete Time: 11:30 ms3 04/09 11:00 Order name: O2 Per Protocol; Complete Time: 11:22 ms3 04/09 11:00 Order name: O2 Sat Monitoring; Complete Time: 11:22 ms3 EC:05 Rate is 104 beats/min. Rhythm is regular. QRS [place] is Normal. Left axis deviation ms3 noted. [place] interval is normal. QRS interval is normal. Clinical impression: Sinus tachycardia. Administered Medications: No medications were administered Disposition Summary: 04/09/23 14:19 Discharge Ordered Location: Home ms3 Condition: Stable ms3 Diagnosis - Essential (primary) hypertension ms3 - Shortness of breath ms3 Followup: ms3 - With: Private Physician - When: 2 - 3 days - Reason: Recheck today's complaints Discharge Instructions: - Discharge Summary Sheet ms3 - Hypertension, Adult ms3 - Shortness of Breath, Adult ms3 Forms: - Medication Reconciliation Form ms3 - Thank You Letter ms3 - Antibiotic Education ms3 - Prescription Opioid Use ms3 Signatures: Dispatcher [employer] EDGabe Ruiz DO DO ms3 Jennifer Hermosillo RN RN nj1
[2023-04-09 14:47] VITALS: TEMP 98.8
[2023-04-09 15:00] VITALS: BP 168/94; O2SAT 97
--- NOTE | 2023-04-10 07:48 | EKG ---
Test Date: 2023-04-09 Test Time: 11:48:31 Floor Surfacer: ALP MEASUREMENT RESULTS: Intervals: Rate: 104 GA: 212 QRSD: 106 QT: 342 QTc: 449 [place]: P: 50 GA: 212 QRS: -67 T: 75 INTERPRETIVE STATEMENTS: Sinus tachycardia with 1st degree AV block Left axis deviation Voltage criteria for left ventricular hypertrophy Inferior infarct, age undetermined Anterior infarct, age undetermined Abnormal ECG Compared to ECG 07/19/2022 11:42:22 Left anterior fascicular block no longer present Bifascicular block no longer present Early repolarization no longer present Myocardial infarct finding still present Electronically Signed On 04-10-23 07:46:19 CDT by Bruce Wallace
== END 2023-04-09 14:27 | disposition home or self-care (01) ==
LOC: ER 10:37
DX: I10 Essential (primary) hypertension (principal); R06.02 Shortness of breath; I48.91 Unspecified atrial fibrillation; E11.9 Type 2 diabetes mellitus without complications; M32.9 Systemic lupus erythematosus, unspecified; M06.9 Rheumatoid arthritis, unspecified; G47.30 Sleep apnea, unspecified; F32.A Depression, unspecified; Z87.891 Personal history of nicotine dependence; Z88.3 Allergy status to other anti-infective agents; Z88.2 Allergy status to sulfonamides
CPT/HCPCS: 93005; 85025; 80048; 36415; 83735; 85610; 85379; 84484; 71275; 71045; 99284; Q9967

== ENCOUNTER 2023-05-30 13:36 | Emergency (ER) | payer OTHER ==
--- OUTSIDE RECORDS SUMMARY | 2023-05-30 13:39 | XMS REPORT | Clinical Summary ---
:1950 Author Organization [facility] MD [facility] Address [address] [place] [address] Care Team Providers Name Role Phone Kyle Godinez Unavailable Jessy Munroe MD Unavailable [phone] Andrea Martinez MD Primary Care Provider Allergies Not on File Medications Not on file Active Problems Problem Noted Date Malignant neoplasm of lower-inner quadrant of breast, female 04/18/2023 Overview: Formatting of this note might be differe nt from the original. Added automatically from request for surgery [id number] Encounters Date Type Specialty Care Team Description 05/14/2023 Lab Requisition Rey Hugo MD Qiu, Suimin, MD 05/08/2023 Ancillary Procedure Radiology Andrea Martinez MD Cancer 05/08/2023 Ancillary Procedure Radiology Andrea Martinez MD Cancer 05/08/2023 Ancillary Procedure Radiology Andrea Martinez MD Cancer 05/08/2023 Ancillary Procedure Radiology Andrea Martinez MD Cancer 04/24/2023 Ancillary Procedure Radiology Andrea Martinez MD Cancer 04/24/2023 Ancillary Procedure Radiology Andrea Martinez MD Cancer after 05/30/2022 Social History Tobacco Use Types Packs/Day Years Used Date Smoking Tobacco: Never Assessed Sex Assigned at Date Recorded Not on file Job Start Date Occupation Industry Not on file Not on file Not on file Last Filed Vital Signs Not on file Plan of Treatment Date Type Specialty Care Team Description 06/19/2023 [employer] Patient Access Services Andrea Martinez MD [address] [place], [place] [address] (Wo rk) 06/19/2023 Office Visit Breast Medical Oncology Andrea Martinez MD [address] [place], [place] [address] (Wo rk) 06/22/2023 Consult Radiation Oncology Keyona Hayes MD [address] [place], [place] [address] (Wo rk) Health Maintenance Due Date Last Done Comments COVID-19 Vaccination (3 - Pfizer series) 04/29/2021 021, 02/11/2021 Procedures Procedure Name Priority Date/Time Associated Comments Diagnosis OSI US DUPLEX EXTREMITY Routine 04/24/2023 12:10 Cancer Results for this VEINS UNILAT PM CDT procedure are i n the results section. OSI US DUPLEX EXTREMITY Routine 04/24/2023 12:10 Cancer Results for this VEINS UNILAT PM CDT procedure are i n the results section. OSI US BREAST BIOPSY Routine 04/04/2023 10:29 Cancer Res ults for this AM CDT procedure are i n the results section. OSI MAMMO BILATERAL Routine 04/04/2023 10:29 Cancer Resu lts for this AM CDT procedure are i n the results section. PATHOLOGY OUTSIDE Routine 04/04/2023 Results fo r this INTERPRETATION procedure are in the results section. OSI MAMMO BILATERAL Routine 03/21/2023 10:30 Cancer Resu lts for this AM CDT procedure are i n the results section. OSI US BREAST Routine 03/21/2023 10:30 Cancer Results fo r this AM CDT procedure are i n the results section. after 05/30/2022 Results OSI SPECIMEN RADIOGRAPH (04/24/2023 12:10 PM CDT)Only the most recent of2 resultswithin the time period is included. Specimen (Source) Anatomical Location Collection Method / Collectio n Time Received Time / Laterality Volume Narrative [facility] - 05/08/2023 12:10 PM CDT Study acquired at another institution. For comparison only. No MD White originated interpretation requested or a vailable. Anrdea Martinez MD IMG OUTSIDE IMAGE ORDERABLES Performing Organization Address City/[facility]/ZIP Code Phon e Number [facility] OSI Mammo (04/04/2023 10:29 AM CDT)Only the most recent of2 resultswithin the time period is included. Specimen (Source) Anatomical Location Collection Method / Collectio n Time Received Time / Laterality Volume Narrative [facility] - 05/10/2023 10:29 AM CDT Study acquired at another institution. For comparison only. No MD White originated interpretation requested or a vailable. Andrea Martinez MD IMG OUTSIDE IMAGE ORDERABLES Performing Organization Address [facility] Code Phon e Number [facility] OSI US Breast Biopsy (04/04/2023 10:29 AM CDT) Specimen (Source) Anatomical Location Collection Method / Collectio n Time Received Time / Laterality Volume [facility]ative [facility] 05/10/2023 10:29 AM CDT Study acquired at another institution. For comparison only. No MD White originated interpretation requested or a vailable. Andrea Martinez MD IMG OUTSIDE IMAGE ORDERABLES Performing Organization Address [facility] Phon e Number [facility] Pathology Outside Interpretation (04/04/2023) Component Value Ref Test Analysis Performed Pathologis t Range Method Time At [facility] Accession#, Stained, Block, Unstained Collected Received 05/16/2023 [facility] Received A. [id number], 13 SS, 0 BLOCKS, 0 USS 12: 38 PM B. [id number], 39 SS, 0 BLOCKS, 0 USS 04/04/2023 CDT 04/24/2023 05/14/2023 05/14/2023 Diagnosis Outside ([id number], 13 SS, 0 BLOCKS, 0 USS, angel luis ected on 04/04/2023): 05/16/2023 [facility] Electronically 12:38 PM signed by Eyal Left axillary lymph node, biopsy: CDT Nasra Lymph node tissue, no tumor present. MD Jack on 05/16 B. Left breast, lower inner, 8 o'clock, 5 cm from nipple, bi opsy:: at 12:38 PM INVASIVE MAMMARY CARCINOMA I N TWO FOCI, WITH FEATURES OF INVASIVE DUCTAL CARCINOMA, AND INVASIVE MUCINOUS CARCINOMA, INTERMEDIATE GRADE,KRYSTIN HISTOLOGIC GRADE 2. SOLID PAPILLARY CARCINOMA, INTERMEDIATE GRADE (SEE COMMENT). Outside ([id number], 39 SS, 0 BLOCKS, 0 USS, collected on 03/28): A. Lymph node, left sentinel, excision: One lymph node, no tumor present (per report, 0/). B. Lymph node, clipped left sentinel, excision: One lymph node with previous biopsy site changes, no tumor p resent (0/). C. Breast, left, lumpectomy (slides C1-C7, C9-17, C19-C25, a nd C28): INVASIVE DUCTAL CARCINOMA, F OCAL, MEASURING 1 MM IN MAXIMUM DIMENSION. (SEE COMMENT) SOLID PAPILLARY CARCINOMA, I NTERMEDIATE GRADE, EXTENSIVELY INVOLVING LUMPECTOMY (PRESENT IN 24 OUT OF 29 SUBMITTED SLIDES) (SEE COMMENT). SOLID PAPILLARY CARCINOMA CT ESENT AT SUPERIOR MARGIN OF RESECTION, AND LOCATED LESS THAN 1 MM WITHIN THE POSTERIOR, INFERIOR AND LATERAL MARGINS. Skin, no tumor present. D. Breast, left, superior margin, excision (slide D2): Breast parenchyma, no tumor present. E. Breast, left, inferior margin, excision (slide E2): Breast parenchyma, no tumor present. F. Breast, left, medial margin, excision (slide F1): Fibroadipose, no tumor present. G. Breast, left, lateral margin, excision (slide G2): Fibroadipose, no tumor present. H. Breast, left, posterior margin, excision (slide H1): Fibroadipose, no tumor present. Comment [id number]: Per submitted imm unohistochemistry on block B2, the solid papillary carcinoma is focally positive for synaptophysin and scattered cells are positive for chromogranin; p63 highlights myoepithe 05/16/2023 [facility] lial cells surrounding the n ests of solid papillary carcinoma and the absence of myoepithelial cells around the invasive ductal carcinoma. The invasive ductal carcinoma shows synaptophysin positivity in 12:38 PM at least one third of the tumor represented in the core bio psy. CDT Biomarker analysis of the invasive carcinoma (slides submi tted for review): Estrogen receptor: Positive (>95%, strong intensity). Progesterone receptor: Positive (70%, weak to moderate inten sity). HER2 IHC: negative (score 1+). Ki-67: 10%. [id number]: The submitted p63 and myosin immunostains shows absence of staining in the focus of tumor cells ( block C14) in the periductal area which supports the presence of invasive carcinoma. There is another focus with small gr oups of tumor cells (block C15) with absence of staining for p63 and myosin in the periductal area associated with reactive changes to marker clip. Displaced tumor cells foll owing previous biopsy is favored for this focus. Biomarker Tumor: [id number], 05/16/2023 [facility] Block(s) block B2 12:38 PM CDT Disclaimer "Some tests reported 05/16/2023 [facility] here may have been 12:38 PM developed and CDT performance characteristics determined by [facility]. These tests have not been specifically cleared or approved by the U.S. Food and Drug Administration. If applicable, controls were reviewed and showed appropriate reactivity." Specimen (Source) Anatomical Collection Method Collection Time Re ceived Time Location / / Volume Laterality Tissue 04/04/2023 05/14/2023 10:3 7 AM CDT Tissue 04/24/2023 05/14/2023 10:3 9 AM CDT Effie Peck MD LAB PATHOLOGY ORDERABLES Performing Organization Address City/State/[facility] Code Phon e Number [facility] [place] [address] [address] [facility] Breast (03/21/2023 10:30 AM CDT) Specimen (Source) Anatomical Location Collection Method / Collectio n Time Received Time / Laterality Volume Narrative [facility] - 05/10/2023 10:30 AM CDT Study acquired at another institution. For comparison only. No [facility] originated interpretation requested or a vailable. Andrea Martinez MD IMG OUTSIDE IMAGE ORDERABLES Performing Organization Address City/State/ZIP Code Phon e Number [facility] after 05/30/2022 Insurance Payer Benefit Plan / Subscriber ID Effective Dates Phone Addre ss Type Group MEDICARE MEDICARE PART [id number] 2017-Kalia [phone] RIANA Contreras Medicare A AND B t 2 SOLUTIONS [address] [place] [id number] Care Teams [place] Relationship Specialty Start Date End Date Kyle Godinez PA PCP - External Primary Family Practice 04/20/23 [address] [address] [place] [address] Jessy Munroe PCP - External Referring Surgical Oncology 04/20/23 MD Alyssa [address] [address] Andrea Martinez MD PCP - General Breast Medical 05/08/[address] [place] [address] [place] [address]
--- OUTSIDE RECORDS SUMMARY | 2023-05-30 13:43 | XMS REPORT | Continuity of Care Document ---
:1950 Author Organization [facility] t Address [address] [place] [address] [address] [place] [address] Care Team Providers Name Role Phone [phone] Primary Care Physician Unavailable JESSY ALEJANDRA Attending Clinician Unavailable Rey Hugo MD Attending Clinician Effie Peck MD Attending Clinician Doctor Unassigned, [place] Attending Clinician Unavailable Jessy Alejandra MD Attending Clinician Andrea Mcqueen MD Attending Clinician ANDREA MCQUEEN Attending Clinician Unavailable Todd Purdy NP Attending Clinician TODD PURDY Attending Clinician Unavailable MARINA BAKER Attending Clinician Unavailable Stacie Kamara MD Attending Clinician STACIE KAMARA Attending Clinician Unavailable Jessy Alejandra MD Admitting Clinician JESSY ALEJANDRA Admitting Clinician Unavailable Payers Payer Name Policy Type Policy Number Effective Date Expiration Date S ource MEDICARE PART A [id number] 2017 \T\ B 00:00:00 Problems Condition Condition Condition Status Onset Resolution Last Treating Co mments Source Name Details Category Date Date Treatment Clinician Date Malignant Malignant Disease Active Overview: Univers neoplasm neoplasm 5-24 Formattin ity of of of 00:00: g of this [place] lower-inne lower-inne 00 note MD r quadrant r quadrant might be Anderso of breast, of breast, different n female female from the Cancer original. Center Formattin g of this note might be different from the original. 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 Medical breast breast Branch Mass of Mass of Disease Active Univers lower lower 2-27 ity of inner inner 00:00: [place] quadrant quadrant 00 Medica l of left of left Branch breast breast BMI BMI Disease Active Univers 35.0-35.9, 35.0-35.9, 2-27 it y of adult adult 00:00: [place] 00 Medical Branch Hypertensi Hypertensi Disease Active U nivers on, on, 1-13 ity of uncontroll uncontroll 00:00: [place] ed ed 00 Medical Branch Asymptomat Asymptomat Disease Active U nivers ic ic 1-13 ity of hypertensi hypertensi 00:00: [place] ve urgency ve urgency 00 Mi dical Branch Emphysema Emphysema Disease Active Uni vers lung lung 1-13 ity of 00:00: [place] 00 Medical Branch 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 Grade 3/6 harsh systolic murmur noted at right upper intercost al region, may represent aortic stenosis especiall y given her uncontrol led HTN, recommend work up by Cardiolog ist of her choice Former Former Disease Active Univers smoker, smoker, 1-13 ity of stopped stopped 00:00: [place] smoking in smoking in 00 Me dical [...] Stop Date Quantity Comments Source Alcohol intake 2023-04-25 2023-04-25 1 /d University of 00:00:00 00:00:00 [facility] Exposure to 2023-04-07 2023-04-17 Not sure [facility] SARS-CoV-2 00:00:00 14:46:00 [facility] (event) Branch Tobacco use and 2023-01-22 2023-01-22 Smokeless tobacco Un iversity of exposure 00:00:00 00:00:00 non-user [facility] History of 1998-11-26 Cigarette Smoker Universi ty of tobacco use 00:00:00 [facility] Sex Ass[birth year] At [birth year] Universit y of 00:00:00 00:00:00 Manuel Schmitz [facility] Smoking Status Start Date Stop Date Source Ex-smoker 2023-01-22 00:00:00 2023-01-22 00:00:00 Universi ty of [facility] Medications Ordered Filled Start Stop Current Ordering Indication Dosage Frequency Signature Comments Components Source Medication Medication Date Date Medication? Clinician (SIG) Name Name LISINOPRIL Yes 20mg Take 20 mg U nivers ORAL 6-06 by mouth. ity of 16:27: [place] [address] Medical Branch AMLODIPINE 2022-0 Yes 10mg Take 10 mg U nivers BESYLATE 6-06 by mouth ity of (NORVASC 16:27: in the [place] ORAL) 16 morning. Medical Branch ALBUTEROL 2022-0 Yes 2{puff} Inhale 2 U nivers INHALE 6-06 Puffs as ity of 16:27: needed. [place] [address] Medical Branch metoprolol 2022-0 Yes 50mg Take 1 Unive rs succinate 6-06 tablet by ity o f XL 50 mg 24 16:27: mouth in [place] hr tablet 16 the Medical morning. Branch atorvastati 2022-0 Yes 40mg Take 1 Univ ers n 40 mg 6-06 tablet by ity of tablet 16:27: mouth at [place] [address] bedtime. Medical Branch gabapentin 2022-0 Yes 300mg Take 1 Univ ers 300 mg 6-06 capsule by ity of capsule 16:27: mouth in [place] [address] the Medical morning Branch and 1 capsule at noon and 1 capsule in the evening. clopidogreL 2022-0 Yes 75mg Take 1 Univ ers 75 mg 6-06 tablet by ity of tablet 16:27: mouth in [place] [address] the Medical morning. Branch DULoxetine 2022-0 Yes 1{capsu Take 1 Un laura 60 mg CDRS 6-06 le} capsule by ity of 16:27: mouth in [place] [address] the Medical morning. Branch aspirin 81 2022-0 Yes 1{tbl} Take 1 Uni vers mg Cap 6-06 tablet by ity of 16:27: mouth in [place] [address] the Medical morning. Branch acetaminoph 2022-0 Yes 500mg Take 1 Uni vers en 500 mg 6-06 tablet by ity o f tablet 16:27: mouth 4 [place] [address] (four) Medical times Branch daily. MELATONIN 3-0 Yes 10mg Take 10 mg Un laura ORAL 6-06 by mouth ity of 16:27: at [place] [address] bedtime. Medical Branch LISINOPRIL 2022-0 Yes 20mg Take 20 mg U nivers ORAL 6-06 by mouth. ity of 16:27: [place] [address] Medical Branch AMLODIPINE 2022-0 Yes 10mg Take 10 mg U nivers BESYLATE 6-06 by mouth ity of (NORVASC 16:27: in the [place] ORAL) 16 morning. Medical Branch ALBUTEROL 2022-0 Yes 2{puff} Inhale 2 U nivers INHALE 6-06 Puffs as ity of 16:27: needed. [place] [address] Medical Branch metoprolol 2022-0 Yes 50mg Take 1 Unive rs succinate 6-06 tablet by ity o f XL 50 mg 24 16:27: [place] in [place] hr tablet 16 the Medical morning. Branch atorvastati 2022-0 Yes 40mg Take 1 Univ ers n 40 mg 6-06 tablet by ity of tablet 16:27: mouth at [place] [address] bedtime. Medical Branch gabapentin 2022-0 Yes 300mg Take 1 Univ ers 300 mg 6-06 capsule by ity of capsule 16:27: mouth in [place] [address] the Medical morning Branch and 1 capsule at noon and 1 capsule in the evening. clopidogreL 2022-0 Yes 75mg Take 1 Univ ers 75 mg 6-06 tablet by ity of tablet 16:27: mouth in [place] [address] the Medical morning. Branch DULoxetine 2022-0 Yes 1{capsu Take 1 Un [place] 60 mg CDRS 6-06 le} capsule by ity of 16:27: mouth in [place] [address] the Medical morning. Branch aspirin 81 2022-0 Yes 1{tbl} Take 1 Uni vers mg Cap 6-06 tablet by ity of 16:27: mouth in [place] [address] the Medical morning. Branch acetaminoph 2022-0 Yes 500mg Take 1 Uni vers en 500 mg 6-06 tablet by ity o f tablet 16:27: mouth 4 [place] [address] (four) Medical times Branch daily. MELATONIN 2022-0 Yes 10mg Take 10 mg Un [place] ORAL 6-06 by mouth ity of 16:27: at [place] [address] bedtime. Medical Branch LISINOPRIL 2022-0 Yes 20mg Take 20 mg U nivers ORAL 6-06 by mouth. ity of 16:27: [place] [address] Medical Branch AMLODIPINE 2022-0 Yes 10mg Take 10 mg U nivers BESYLATE 6-06 by mouth ity of (NORVASC 16:27: in the [place] ORAL) 16 morning. Medical Branch ALBUTEROL 2022-0 Yes 2{puff} Inhale 2 U nivers INHALE 6-06 Puffs as ity of 16:27: needed. [place] [address] Medical Branch metoprolol 2022-0 Yes 50mg Take 1 Unive rs succinate 6-06 tablet by ity o f XL 50 mg 24 16:27: [place] in [place] tablet 16 the Medical morning. Branch atorvastati 2022-0 Yes 40mg Take 1 Univ ers n 40 mg 6-06 tablet by ity of tablet 16:27: mouth at [place] [address] bedtime. Medical Branch gabapentin 2023-0 Yes 300mg Take 1 Univ ers 300 mg 6-06 capsule by ity of capsule 16:27: mouth in [place] [address] the Medical morning Branch and 1 capsule at noon and 1 capsule in the evening. clopidogreL 3-0 Yes 75mg Take 1 Univ ers 75 mg 6-06 tablet by ity of tablet 16:27: mouth in [place] [address] the Medical morning. Branch DULoxetine 2022-0 Yes 1{capsu Take 1 Un [place] 60 mg CDRS 6-06 le} capsule by ity of 16:27: mouth in [place] [address] the Medical morning. Branch aspirin 81 2022-0 Yes 1{tbl} Take 1 Uni vers mg Cap 6-06 tablet by ity of 16:27: mouth in [place] [address] the Medical morning. Branch acetaminoph 2022-0 Yes 500mg Take 1 Uni vers en 500 mg 6-06 tablet by ity o f tablet 16:27: mouth 4 [place] [address] (four) Medical times Branch daily. MELATONIN 2022-0 Yes 10mg Take 10 mg Un laura ORAL 6-06 by mouth ity of 16:27: at [place] [address] bedtime. Medical Branch LISINOPRIL 2022-0 Yes 20mg Take 20 mg U nivers ORAL 6-06 by mouth. ity of 16:27: [place] [address] Medical Branch AMLODIPINE 2022-0 Yes 10mg Take 10 mg U nivers BESYLATE 6-06 by mouth ity of (NORVASC 16:27: in the [place] ORAL) 16 morning. Medical Branch ALBUTEROL 2022-0 Yes 2{puff} Inhale 2 U nivers INHALE 6-06 Puffs as ity of 16:27: needed. [place] [address] Medical Branch metoprolol 2022-0 Yes 50mg Take 1 Unive rs succinate 6-06 tablet by ity o f XL 50 mg 24 16:27: [place] tablet 16 the Medical morning. Branch atorvastati 2023-0 Yes 40mg Take 1 Univ ers n 40 mg 6-06 tablet by ity of tablet 16:27: mouth at [place] [address] bedtime. Medical Branch gabapentin 2022-0 Yes 300mg Take 1 Univ ers 300 mg 6-06 capsule by ity of capsule 16:27: mouth in [place] [address] the Medical morning Branch and 1 capsule at noon and 1 capsule in the evening. clopidogreL 3-0 Yes 75mg Take 1 Univ ers 75 mg 6-06 tablet by ity of tablet 16:27: mouth in [place] [address] the Medical morning. Branch DULoxetine 2022-0 Yes 1{capsu Take 1 Un [place] 60 mg CDRS 6-06 le} capsule by ity of 16:27: mouth in [place] [address] the Medical morning. Branch aspirin 81 2022-0 Yes 1{tbl} Take 1 Uni vers mg Cap 6-06 tablet by ity of 16:27: mouth in [place] [address] the Medical morning. Branch acetaminoph 2022-0 Yes 500mg Take 1 Uni vers en 500 mg 6-06 tablet by ity o f tablet 16:27: mouth 4 [place] [address] (four) Medical times Branch daily. MELATONIN 2022-0 Yes 10mg Take 10 mg Un la[place] ORAL 6-06 by mouth ity of 16:27: at [place] [address] bedtime. Medical Branch LISINOPRIL 2022-0 Yes 20mg Take 20 mg U nivers ORAL 6-06 by mouth. ity of 16:27: [place] [address] Medical Branch AMLODIPINE 2022-0 Yes 10mg Take 10 mg U nivers BESYLATE 6-06 by mouth ity of (NORVASC 16:27: in the [place] ORAL) 16 morning. Medical Branch ALBUTEROL 2022-0 Yes 2{puff} Inhale 2 U nivers INHALE 6-06 Puffs as ity of 16:27: needed. [place] [address] Medical Branch metoprolol 2022-0 Yes 50mg Take 1 Unive rs succinate 6-06 tablet by ity o f XL 50 mg 24 16:27: [place] tablet 16 the Medical morning. Branch atorvastati 2022-0 Yes 40mg Take 1 Univ ers n 40 mg 6-06 tablet by ity of tablet 16:27: mouth at [place] [address] bedtime. Medical Branch gabapentin 2022-0 Yes 300mg Take 1 Univ ers 300 mg 6-06 capsule by ity of capsule 16:27: mouth in [place] [address] the Medical morning Branch and 1 capsule at noon and 1 capsule in the evening. clopidogreL 2022-0 Yes 75mg Take 1 Univ ers 75 mg 6-06 tablet by ity of tablet 16:27: mouth in [place] [address] the Medical morning. Branch DULoxetine 2022-0 Yes 1{capsu Take 1 Un [place] 60 mg CDRS 6-06 le} capsule by ity of 16:27: mouth in [place] [address] the Medical morning. Branch aspirin 81 2022-0 Yes 1{tbl} Take 1 Uni vers mg Cap 6-06 tablet by ity of 16:27: mouth in [place] [address] the Medical morning. Branch acetaminoph 0 Yes 500mg Take 1 Uni vers en 500 mg 6-06 tablet by ity o f tablet 16:27: mouth 4 [place] [address] (four) Medical times [place] daily. MELATONIN 2022-0 Yes 10mg Take 10 mg Un laura ORAL 6-06 by mouth ity of 16:27: at [place] [address] bedtime. Medical Branch acetaminoph 0 Yes 650mg 650 mg, Un laura en 5-30 Oral, PRN, ity of (TYLENOL) 19:06: 1 dose, [place] tablet 650 24 Starting Medic al mg on [facility] 04/24/23 at 1406, Until Discontinu ed, Routine, Pain (scale 1-3), DSU Recovery traMADoL 2022- No 50mg 50 mg, Univer s (ULTRAM) 5-30 05-30 Oral, PRN, ity of tablet 50 19:06: 19:52 1 dose, [place] mg 24 :00 Starting Medical on [facility] 04/24/23 at 1406, Until [facility] 04/24/23 at 1452, Routine, Pain (scale 4-6), DSU Recovery traMADoL 0 2022- No 50mg 50 mg, Univer s (ULTRAM) 5-30 05-30 Oral, PRN, ity of tablet 50 19:06: 19:52 1 dose, [place] mg 24 :00 Starting Medical on [facility] 04/24/23 at 1406, Until [facility] 04/24/23 at 1452, Routine, Pain (scale 4-6), DSU Recovery acetaminoph 20232022- No 650mg 650 mg, U nivers en 04-24 Oral, PRN, ity of (TYLENOL) 19:06: 22:46 1 dose, [place] tablet 650 24 :05 Starting Medic al mg on Sun Branch 04/24/23 at 1406, Until Sun04/24/23 at 1746, Routine, Pain (scale 1-3), DSU Recovery water for 2022- No PRN, Univers irrigation 04-24 Starting ity of irrigation 17:11: 19:00 on Sun [place] solution 00 :42 04/24/23 at Medic al 1211, Branch Until Sun04/24/23 at 1400, Routine, Intra-op bupivacaine 2022- No PRN, Unive rs (preserv 04-24 Starting ity of free) 0.5% 16:56: 19:00 [place] (SENSORCAIN 00 :42 04/24/23 at Mi dicnh E MP) 0.5 1156, Branch % (5 mg/mL) Intra-op 30 mL, lidocaine 1% (PF) (XYLOCAINE) 15 mL, NaCl 0.9% (NS) 50 mL Tc 99m-roland. 2022- No [id number] .9mCi 0.9 Univers sulfur 04-24 millicurie ity of colloid 16:43: 16:43 , [place] injection 00 :00 Intraderma Medi dedra 0.9 l, ONCE, 1 Branch millicurie dose, On Sun04/24/23 at 1200, Routine LISINOPRIL Yes 20mg Take 20 mg U nivers ORAL 5-30 by mouth. ity of 15:41: [address] AMLODIPINE Yes 10mg Take 10 mg U nivers BESYLATE 5-30 by mouth ity of (NORVASC 15:41: in the [place] ORAL) 02 morning. Medical Branch ALBUTEROL Yes 2{puff} Inhale 2 U nivers INHALE 5-30 Puffs as ity of 15:41: needed. [place] [facility] metoprolol Yes 50mg Take 1 Unive rs succinate 5-30 tablet by ity o f XL 50 mg 24 15:41: mouth in [place] hr tablet 02 the Medical morning. Branch atorvastati Yes 40mg Take 1 Univ ers n 40 mg 5-30 tablet by ity of tablet 15:41: mouth at [place] [address] bedtime. Medical Branch gabapentin 0 Yes 300mg Take 1 Univ ers 300 mg 5-30 capsule by ity of capsule 15:41: mouth in [place] [address] the Medical morning Branch and 1 capsule at noon and 1 capsule in the evening. clopidogreL 0 Yes 75mg Take 1 Univ ers 75 mg 5-30 tablet by ity of tablet 15:41: mouth in [place] [address] the Medical morning. Branch DULoxetine Yes 1{capsu Take 1 [place] 60 mg CDRS 5-30 le} capsule by ity of 15:41: mouth in [place] [address] the Medical morning. Branch aspirin 81 Yes 1{tbl} Take 1 Uni vers mg Cap 5-30 tablet by ity of 15:41: mouth in [place] [address] the Medical morning. Branch acetaminoph Yes 500mg Take 1 Uni vers en (TYLENOL 5-30 tablet by ity of EXTRA 15:41: mouth 4 [facility]) 02 (four) Medical 500 mg times Branch tablet daily. MELATONIN Yes 10mg Take 10 mg Un laura ORAL 5-30 by mouth ity of 15:41: at [place] [address] bedtime. Medical Branch LISINOPRIL Yes 20mg Take 20 mg U nivers ORAL 5-30 by mouth. ity of 15:41: [place] [address] Medical Branch AMLODIPINE Yes 10mg Take 10 mg U nivers BESYLATE 5-30 by mouth ity of (NORVASC 15:41: in the [place] ORAL) 02 morning. Medical Branch ALBUTEROL Yes 2{puff} Inhale 2 U nivers INHALE 5-30 Puffs as ity of 15:41: needed. [place] [address] Medical Branch metoprolol 0 Yes 50mg Take 1 Unive rs succinate 5-30 tablet by ity o f XL 50 mg 24 15:41: mouth in [place] hr tablet 02 the Medical morning. Branch atorvastati Yes 40mg Take 1 Univ ers n 40 mg 5-30 tablet by ity of tablet 15:41: mouth at [place] [address] bedtime. Medical Branch gabapentin 2022-0 Yes 300mg Take 1 Univ ers 300 mg 5-30 capsule by ity of capsule 15:41: mouth in [place] 02 the Medical morning Branch and 1 capsule at noon and 1 capsule in the evening. clopidogreL 2022-0 Yes 75mg Take 1 Univ ers 75 mg 5-30 tablet by ity of tablet 15:41: mouth in [place] [address] the Medical morning. Branch DULoxetine 2022-0 Yes 1{capsu Take 1 Un [place] 60 mg CDRS 5-30 le} capsule by ity of 15:41: mouth in [place] 02 the Medical morning. Branch aspirin 81 2022-0 Yes 1{tbl} Take 1 Uni vers mg Cap 5-30 tablet by ity of 15:41: mouth in [place] [address] the Medical morning. Branch acetaminoph 0 Yes 500mg Take 1 Uni vers en (TYLENOL 5-30 tablet by ity of EXTRA 15:41: mouth 4 [place] [facility]) 02 (four) Medical 500 mg times Branch tablet daily. MELATONIN Yes 10mg Take 10 mg [place] ORAL 5-30 by mouth ity of 15:41: at [place] [address] bedtime. Medical Branch LISINOPRIL 0 Yes 20mg Take 20 mg U nivers ORAL 5-30 by mouth. ity of 15:41: [place] 02 Medical Branch AMLODIPINE 0 Yes 10mg Take 10 mg U nivers BESYLATE 5-30 by mouth ity of (NORVASC 15:41: in the [facility]) 02 morning. Medical Branch ALBUTEROL 2022- Yes 2{puff} Inhale 2 U nivers INHALE 5-30 Puffs as ity of 15:41: needed. [place] 02 Medical Branch metoprolol 2022-0 Yes 50mg Take 1 Unive rs succinate 5-30 tablet by ity o f XL 50 mg 24 15:41: mouth in [place] hr tablet 02 the Medical morning. Branch atorvastati 0 Yes 40mg Take 1 Univ ers n 40 mg 5-30 tablet by ity of tablet 15:41: mouth at [place] [address] bedtime. Medical Branch gabapentin 2022-0 Yes 300mg Take 1 Univ ers 300 mg 5-30 capsule by ity of capsule 15:41: mouth in [place] 02 the Medical morning Branch and 1 capsule at noon and 1 capsule in the evening. clopidogreL 2022-0 Yes 75mg Take 1 Univ ers 75 mg 5-30 tablet by ity of tablet 15:41: mouth in [place] 02 the Medical morning. Branch DULoxetine 0 Yes 1{capsu Take 1 Un [place] 60 mg CDRS 5-30 le} capsule by ity of 15:41: mouth in [place] 02 the Medical morning. Branch aspirin 81 0 Yes 1{tbl} Take 1 Uni vers mg Cap 5-30 tablet by ity of 15:41: mouth in [place] 02 the Medical morning. Branch acetaminoph Yes 500mg Take 1 Uni vers en (TYLENOL 5-30 tablet by ity of EXTRA 15:41: mouth 4 [place] [facility]) 02 (four) Medical 500 mg times Branch tablet daily. MELATONIN Yes 10mg Take 10 mg [place] ORAL 5-30 by mouth ity of 15:41: at [place] [address] bedtime. Medical Branch LISINOPRIL Yes 20mg Take 20 mg U nivers ORAL 5-30 by mouth. ity of 15:41: [place] 02 Medical Branch AMLODIPINE Yes 10mg Take 10 mg U nivers BESYLATE 5-30 by mouth ity of (NORVASC 15:41: in the [facility]) 02 morning. Medical Branch ALBUTEROL Yes 2{puff} Inhale 2 U nivers INHALE 5-30 Puffs as ity of 15:41: needed. [place] 02 Medical Branch metoprolol 0 Yes 50mg Take 1 Unive rs succinate 5-30 tablet by ity o f XL 50 mg 24 15:41: mouth in [place] hr tablet 02 the Medical morning. Branch atorvastati Yes 40mg Take 1 Univ ers n 40 mg 5-30 tablet by ity of tablet 15:41: mouth at [place] [address] bedtime. Medical Branch gabapentin 0 Yes 300mg Take 1 Univ ers 300 mg 5-30 capsule by ity of capsule 15:41: mouth in [place] 02 the Medical morning Branch and 1 capsule at noon and 1 capsule in the evening. clopidogreL 2022-0 Yes 75mg Take 1 Univ ers 75 mg 5-30 tablet by ity of tablet 15:41: mouth in [place] 02 the Medical morning. Branch DULoxetine Yes 1{capsu Take 1 Un laura 60 mg CDRS 5-30 le} capsule by ity of 15:41: mouth in [place] 02 the Medical morning. Branch aspirin 81 Yes 1{tbl} Take 1 Uni vers mg Cap 5-30 tablet by ity of 15:41: mouth in [place] 02 the Medical morning. Branch acetaminoph Yes 500mg Take 1 Uni vers en (TYLENOL 5-30 tablet by ity of EXTRA 15:41: mouth 4 [place] [facility]) 02 (four) Medical 500 mg times Branch tablet daily. MELATONIN Yes 10mg Take 10 mg [place] ORAL 5-30 by mouth ity of 15:41: at [place] [address] bedtime. [facility] Branch celecoxib 2022- No 100mg 100 mg, Uni vers (CELEBREX) 5-30 05-30 Oral, ity of capsule 100 14:45: 14:40 ONCE, 1 [place] mg 00 :00 dose, On Medical [facility] 04/24/23 at 0945, Routine, DSU Pre-op acetaminoph 2022- No 1000mg 1,000 mg, Univers en 5-30 05-30 Oral, ity of (TYLENOL) 14:45: 14:40 ONCE, 1 [place] tablet 00 :00 dose, On Medical 1,000 mg [facility] 04/24/23 at 0945, Routine, DSU Pre-op lactated 2022-2022- No 1000mL at 42 [place] [facility] rs ringers IV 5-30 05-30 mL/hr, ity of infusion 14:45: 14:53 1,000 mL, [place] 1,000 mL 00 :00 IV Medical Infusion, Branch ONCE, 1 dose, On [facility] 04/24/23 at 09, Routine, DSU Pre-op celecoxib 2022-2022- No 100mg 100 mg, Uni vers (CELEBREX) 5-30 05-30 Oral, ity of capsule 100 14:45: 14:40 ONCE, 1 [place] mg 00 :00 dose, On [facility] 04/24/23 at 0945, Routine, DSU Pre-op acetaminoph 2022-2022- No 1000mg 1,000 mg, Univers en 5-30 05-30 Oral, ity of (TYLENOL) 14:45: 14:40 ONCE, 1 [place] tablet 00 :00 dose, On Medical 1,000 mg Tue Branch 04/24/23 at 0945, Routine, DSU Pre-op lactated 2022-2022- No 1000mL at 42 Univ rs ringers IV 5-30 05-30 mL/hr, ity of infusion 14:45: 14:53 1,000 mL, [place] 1,000 mL 00 :00 IV Medical Infusion, Branch ONCE, 1 dose, On 04/24/23 at 0945, Routine, DSU Pre-op CLONIDINE 2022- No Take by [facility] ers HCL ORAL 5-30 05-30 mouth. ity of 13:48: 00:00 [place] 39 :00 Medical Branch CITALOPRAM 2022-0 2022- No 1{tbl} Take 1 Tab Univers HYDROBROMID 5-30 05-30 by mouth. it y of E (CELEXA 13:48: 00:00 [place] ORAL) 39 :00 Medical Branch CLONIDINE 2022-0 2022- No Take by Univ ers HCL ORAL 5-30 05-30 mouth. ity of 13:48: 00:00 [place] 39 :00 Medical Branch CITALOPRAM 2022-0 2022- No 1{tbl} Take 1 Tab Univers HYDROBROMID 5-30 05-30 by mouth. it y of E (CELEXA 13:48: 00:00 [place] ORAL) 39 :00 Medical Branch CLONIDINE 2022-0 2022- No Take by Univ ers HCL ORAL 5-30 05-30 mouth. ity of 13:48: 00:00 [place] 39 :00 Medical Branch CITALOPRAM 2022-0 2022- No 1{tbl} Take 1 Tab Univers HYDROBROMID 5-30 05-30 by mouth. it y of E (CELEXA 13:48: 00:00 [place] ORAL) 39 :00 Medical Branch CLONIDINE 2022-0 2022- No Take by Univ ers HCL ORAL 5-30 05-30 mouth. ity of 13:48: 00:00 [place] 39 :00 Medical Branch CITALOPRAM 2022-0 2022- No 1{tbl} Take 1 Tab Univers HYDROBROMID 5-30 05-30 by mouth. it y of E (CELEXA 13:48: 00:00 [place] ORAL) 39 :00 Medical Branch traMADoL 50 2022-0 2022- Yes 4647 50mg Take 1 Uni vers mg tablet 04-24-07 tablet by ity of 00:00: 04:59 mouth [place] 00 :00 every 6 Medical (six) Branch hours as needed for Pain (scale 4-6) or Pain (scale 7-10) for up to 7 days. Indication s: acute pain traMADoL 50 0 2022- Yes 4647 50mg Take 1 Uni vers mg tablet 04-24- tablet by ity of 00:00: 04:59 mouth [place] 00 :00 every 6 Medical (six) Branch hours as needed for Pain (scale 4-6) or Pain (scale 7-10) for up to 7 days. Indication s: acute pain traMADoL 50 0 2022- Yes 4647 50mg Take 1 Uni vers mg tablet 04-24-07 tablet by ity of 00:00: 04:59 mouth [place] 00 :00 every 6 Medical (six) Branch hours as needed for Pain (scale 4-6) or Pain (scale 7-10) for up to 7 days. Indication s: acute pain traMADoL 50 0 2022- Yes 4647 50mg Take 1 Uni vers mg tablet 04-24-07 tablet by ity of 00:00: 04:59 mouth [place] 00 :00 every 6 Medical (six) Branch hours as needed for Pain (scale 4-6) or Pain (scale 7-10) for up to 7 days. Indication s: acute pain CLONIDINE Yes Take by Unive rs HCL ORAL 5-25 mouth. ity of 13:29: [place] 54 Medical Branch CITALOPRAM Yes 1{tbl} Take 1 Tab Univers HYDROBROMID 5-25 by mouth. ity of E (CELEXA 13:29: [place] ORAL) 54 Medical Branch acetaminoph Yes 500mg Take 1 Uni vers en (TYLENOL 5-25 tablet by ity of EXTRA 13:29: mouth 4 [place] STRENGTH) 40 (four) Medical 500 mg times Branch tablet daily. MELATONIN Yes 10mg Take 10 mg [facility] ORAL 5-25 by mouth ity of 13:29: at [place] 40 bedtime. Medical Branch LISINOPRIL 2022-0 Yes 20mg Take 20 mg U nivers ORAL 5-25 by mouth. ity of 13:27: [place] [address] Medical Branch AMLODIPINE 2022-0 Yes 10mg Take 10 mg U nivers BESYLATE 5-25 by mouth ity of (NORVASC 13:27: in the [place] ORAL) 40 morning. Medical Branch ALBUTEROL 2022-0 Yes 2{puff} Inhale 2 U nivers INHALE 5-25 Puffs as ity of 13:27: needed. [place] [address] Medical Branch metoprolol 2022-0 Yes 50mg Take 1 Unive rs succinate 5-25 tablet by ity o f XL 50 mg 24 13:27: mouth in [place] hr tablet 40 the Medical morning. Branch atorvastati 2022-0 Yes 40mg Take 1 Univ ers n 40 mg 5-25 tablet by ity of tablet 13:27: mouth at [place] [address] bedtime. Medical Branch gabapentin 2022-0 Yes 300mg Take 1 Univ ers 300 mg 5-25 capsule by ity of capsule 13:27: mouth in [place] 40 the Medical morning Branch and 1 capsule at noon and 1 capsule in the evening. clopidogreL 2022-0 Yes 75mg Take 1 Univ ers 75 mg 5-25 tablet by ity of tablet 13:27: mouth in [place] [address] the Medical morning. Branch DULoxetine 2022-0 Yes 1{capsu Take 1 Un [facility] 60 mg CDRS 5-25 le} capsule by ity of 13:27: mouth in [place] 40 the Medical morning. Branch aspirin 81 2022-0 Yes 1{tbl} Take 1 Uni vers mg Cap 5-25 tablet by ity of 13:27: mouth in [place] 40 the Medical morning. Branch methylPREDN 2022- No [id number] 80mg [facility] ISolone 04-17 ity of acetate 22:15: 21:21 [place] (DEPO-MEDRO 00 :00 Medical L) 80 mg/mL Branch 80 mg, lidocaine 1% (PF) (XYLOCAINE) 2 mL, bupivacaine (preserv free) 0.5% (SENSORCAIN E MPF) 0.5 % (5 mg/mL) 7 mL 10 mL injection methylPREDN 2022-2022- No [id number] 80mg Intra-annita [facility] ISolone 04-17 cular, ity of acetate 22:15: 21:21 ONCE, 1 [place] (DEPO-MEDRO 00 :00 dose, On Medi dedra L) 80 mg/mL Tue Branch 80 mg, 04/17/23 at lidocaine 1715, 10 1% (PF) mL (XYLOCAINE) 2 mL, bupivacaine (preserv free) 0.5% (SENSORCAIN E MPF) 0.5 % (5 mg/mL) 7 mL 10 mL injection methylPREDN 2023-0 2023- No [id number] 80mg [facility] ISolone 04-17 ity of acetate 22:15: 21:21 [place] (DEPO-MEDRO 00 :00 Medical L) 80 mg/mL Branch 80 mg, lidocaine 1% (PF) (XYLOCAINE) 2 mL, bupivacaine (preserv free) 0.5% (SENSORCAIN E MPF) 0.5 % (5 mg/mL) 7 mL 10 mL injection methylPREDN 2023-0 2022- No [id number] [facility] acetate 22:15: 21:21 ONCE, 1 [place] (DEPO-MEDRO 00 :00 dose, On Medi dedra L) 80 mg/mL Tue Branch 80 mg, 04/17/23 at lidocaine 1715, 10 1% (PF) mL (XYLOCAINE) 2 mL, bupivacaine (preserv free) 0.5% (SENSORCAIN E MPF) 0.5 % (5 mg/mL) 7 mL 10 mL injection methylPREDN 2023-0 2022- No [id number] 80mg [facility] 04-17 ity of acetate 22:15: 21:21 [place] (DEPO-MEDRO 00 :00 Medical L) 80 mg/mL Branch 80 mg, lidocaine 1% (PF) (XYLOCAINE) 2 mL, bupivacaine (preserv free) 0.5% (SENSORCAIN E MPF) 0.5 % (5 mg/mL) 7 mL 10 mL injection methylPREDN 2023-0 2023- No [id number] 80mg Intra-annita Univers ISolone 04-17 cular, ity of acetate 22:15: 21:21 ONCE, 1 [place] (DEPO-MEDRO 00 :00 dose, On Medi dedra L) 80 mg/mL Tue Branch 80 mg, 04/17/23 at lidocaine 1715, 10 1% (PF) mL (XYLOCAINE) 2 mL, bupivacaine (preserv free) 0.5% (SENSORCAIN E MPF) 0.5 % (5 mg/mL) 7 mL 10 mL injection methylPREDN 2023-0 3- No [id number] 80mg [facility] ISolone 04-17 ity of acetate 22:15: 21:21 [place] (DEPO-MEDRO 00 :00 Medical L) 80 mg/mL Branch 80 mg, lidocaine 1% (PF) (XYLOCAINE) 2 mL, bupivacaine (preserv free) 0.5% (SENSORCAIN E MPF) 0.5 % (5 mg/mL) 7 mL 10 mL injection methylPREDN 2023-0 2022- No [id number] 80mg Intra-annita [facility] ISolone 04-17 cular, ity of acetate 22:15: 21:21 ONCE, 1 [place] (DEPO-MEDRO 00 :00 dose, On Medi dedra L) 80 mg/mL Tue Branch 80 mg, 04/17/23 at lidocaine 1715, 10 1% (PF) mL (XYLOCAINE) 2 mL, bupivacaine (preserv free) 0.5% (SENSORCAIN E MPF) 0.5 % (5 mg/mL) 7 mL 10 mL injection metoprolol 3-0 Yes 50mg Take 1 Unive rs succinate 2-27 tablet by ity o f XL 50 mg 24 10:35: mouth in [place] hr tablet 14 the Medical morning. Branch atorvastati 3-0 Yes 40mg Take 1 Univ ers n 40 mg 2-27 tablet by ity of tablet 10:35: mouth at [place] 14 bedtime. Medical Branch gabapentin 2023-0 Yes 300mg Take 1 Univ ers 300 mg 2-27 capsule by ity of capsule 10:35: mouth in [place] 14 the Medical morning Branch and 1 capsule at noon and 1 capsule in the evening. clopidogreL 2023-0 Yes 75mg Take 1 Univ ers 75 mg 2-27 tablet by ity of tablet 10:35: mouth in [place] 14 the Medical morning. Branch DULoxetine 2023-0 Yes Take by Univ ers 60 mg CDRS 2-27 mouth. ity of 10:35: [address] Branch aspirin 81 0 Yes Take by Univ ers mg Cap 2-27 mouth. ity of 10:35: [place] [address] Medical Branch LISINOPRIL 0 Yes 20mg Take 20 mg U nivers ORAL 2-27 by mouth. ity of 10:35: [place] [address] Medical Branch AMLODIPINE 0 Yes 1{tbl} Take 1 Tab [facility] BESYLATE 2-27 by mouth. ity of (NORVASC 10:35: [place] ORAL) Medical Branch CLONIDINE 0 Yes Take by Unive rs HCL ORAL 2-27 mouth. ity of 10:35: [address] Branch CITALOPRAM 0 Yes 1{tbl} Take 1 Tab Univers HYDROBROMID 2-27 by mouth. ity of E (CELEXA 10:35: [place] ORAL) Medical Branch ALBUTEROL Yes Inhale. Unive rs INHALE 2-27 ity of 10:35: [place] [address] Medical Branch metoprolol 0 Yes 50mg Take 1 Unive rs succinate 2-27 tablet by ity o f XL 50 mg 24 10:35: mouth in [place] hr tablet 14 the Medical morning. Branch atorvastati 0 Yes 40mg Take 1 Univ ers n 40 mg 2-27 tablet by ity of tablet 10:35: mouth at [place] [address] bedtime. Medical Branch gabapentin 0 Yes 300mg Take 1 Univ ers 300 mg 2-27 capsule by ity of capsule 10:35: mouth in [place] [address] the Medical morning Branch and 1 capsule at noon and 1 capsule in the evening. clopidogreL 0 Yes 75mg Take 1 Univ ers 75 mg 2-27 tablet by ity of tablet 10:35: mouth in [place] [address] the Medical morning. Branch DULoxetine 0 Yes Take by Univ ers 60 mg CDRS 2-27 mouth. ity of 10:35: [place] [address] Medical Branch aspirin 81 0 Yes Take by Univ ers mg Cap 2-27 mouth. ity of 10:35: [place] [address] Medical Branch LISINOPRIL 0 Yes 20mg Take 20 mg U nivers ORAL 2-27 by mouth. ity of 10:35: [place] [address] Medical Branch AMLODIPINE 0 Yes 1{tbl} Take 1 Tab Univers BESYLATE 2-27 by mouth. ity of (NORVASC 10:35: [place] ORAL) Medical Branch CLONIDINE Yes Take by Unive rs HCL ORAL 2-27 mouth. ity of 10:35: [place] [address] Medical Branch CITALOPRAM Yes 1{tbl} Take 1 Tab Univers HYDROBROMID 2-27 by mouth. ity of E (CELEXA 10:35: [place] ORAL) Medical Branch ALBUTEROL Yes Inhale. Unive rs INHALE 2-27 ity of 10:35: [place] [address] Medical Branch metoprolol Yes 50mg Take 1 Unive rs succinate 2-27 tablet by ity o f XL 50 mg 24 10:35: mouth in [place] hr tablet 14 the Medical morning. Branch atorvastati Yes 40mg Take 1 Univ ers n 40 mg 2-27 tablet by ity of tablet 10:35: mouth at [place] [address] bedtime. Medical Branch gabapentin Yes 300mg Take 1 Univ ers 300 mg 2-27 capsule by ity of capsule 10:35: mouth in [place] [address] the Medical morning Branch and 1 capsule at noon and 1 capsule in the evening. clopidogreL Yes 75mg Take 1 Univ ers 75 mg 2-27 tablet by ity of tablet 10:35: mouth in [place] [address] the Medical morning. Branch DULoxetine Yes Take by Univ ers 60 mg CDRS 2-27 mouth. ity of 10:35: [place] [address] Medical Branch aspirin 81 Yes Take by Univ ers mg Cap 2-27 mouth. ity of 10:35: [place] [address] Medical Branch LISINOPRIL Yes 20mg Take 20 mg U nivers ORAL 2-27 by mouth. ity of 10:35: [place] [address] Medical Branch AMLODIPINE Yes 1{tbl} Take 1 Tab Univers BESYLATE 2-27 by mouth. ity of (NORVASC 10:35: [place] ORAL) Medical Branch CLONIDINE Yes Take by Unive rs HCL ORAL 2-27 mouth. ity of 10:35: [place] [address] Medical Branch CITALOPRAM Yes 1{tbl} Take 1 Tab Univers HYDROBROMID 2-27 by mouth. ity of E (CELEXA 10:35: [place] ORAL) [address] [place] [address] Branch ALBUTEROL Yes Inhale. Unive rs INHALE 2-27 ity of 10:35: [address] Branch metoprolol Yes 50mg Take 1 Unive rs succinate 2-27 tablet by ity o f XL 50 mg 24 10:35: mouth in [place] hr tablet 14 the Medical morning. Branch atorvastati Yes 40mg Take 1 Univ ers n 40 mg 2-27 tablet by ity of tablet 10:35: mouth at [place] [address] bedtime. Medical Branch gabapentin Yes 300mg Take 1 Univ ers 300 mg 2-27 capsule by ity of capsule 10:35: mouth in [place] [address] the Medical morning Branch and 1 capsule at noon and 1 capsule in the evening. clopidogreL Yes 75mg Take 1 Univ ers 75 mg 2-27 tablet by ity of tablet 10:35: mouth in [place] [address] the Medical morning. Branch DULoxetine Yes Take by Univ ers 60 mg CDRS 2-27 mouth. ity of 10:35: [address] aspirin 81 Yes Take by Univ ers mg Cap 2-27 mouth. ity of 10:35: [address] LISINOPRIL Yes 20mg Take 20 mg U nivers ORAL 2-27 by mouth. ity of 10:35: [address] Branch AMLODIPINE Yes 1{tbl} Take 1 Tab Univers BESYLATE 2-27 by mouth. ity of (NORVASC 10:35: [place] ORAL) [address] [place] [address] Branch CLONIDINE Yes Take by Unive rs HCL ORAL 2-27 mouth. ity of 10:35: [address] Branch CITALOPRAM Yes 1{tbl} Take 1 Tab Univers HYDROBROMID 2-27 by mouth. ity of E (CELEXA 10:35: [place] ORAL) [address] [place] [address] Branch ALBUTEROL Yes Inhale. Unive rs INHALE 2-27 ity of 10:35: [address] Branch metoprolol Yes 50mg Take 1 Unive rs succinate 2-27 tablet by ity o f XL 50 mg 24 10:35: mouth in [place] hr tablet 14 the Medical morning. Branch atorvastati Yes 40mg Take 1 Univ ers n 40 mg 2-27 tablet by ity of tablet 10:35: mouth at [place] [address] bedtime. Medical Branch gabapentin 0 Yes 300mg Take 1 Univ ers 300 mg 2-27 capsule by ity of capsule 10:35: mouth in [place] [address] the Medical morning Branch and 1 capsule at noon and 1 capsule in the evening. clopidogreL 2022-0 Yes 75mg Take 1 Univ ers 75 mg 2-27 tablet by ity of tablet 10:35: mouth in [place] [address] the Medical morning. Branch DULoxetine Yes Take by Univ ers 60 mg CDRS 2-27 mouth. ity of 10:35: [place] [address] Medical Branch aspirin 81 Yes Take by Univ ers mg Cap 2-27 mouth. ity of 10:35: [place] [address] Medical Branch LISINOPRIL Yes 20mg Take 20 mg U nivers ORAL 2-27 by mouth. ity of 10:35: [place] [address] Medical Branch AMLODIPINE Yes 1{tbl} Take 1 Tab Univers BESYLATE 2-27 by mouth. ity of (NORVASC 10:35: [place] ORAL) Medical Branch CLONIDINE Yes Take by Unive rs HCL ORAL 2-27 mouth. ity of 10:35: [address] Branch CITALOPRAM Yes 1{tbl} Take 1 Tab Univers HYDROBROMID 2-27 by mouth. ity of E (CELEXA 10:35: [place] ORAL) Medical Branch ALBUTEROL Yes Inhale. Unive rs INHALE 2-27 ity of 10:35: [place] [address] Medical Branch metoprolol 0 Yes 50mg Take 1 Unive rs succinate 2-27 tablet by ity o f XL 50 mg 24 10:35: mouth in [place] hr tablet 14 the Medical morning. Branch atorvastati Yes 40mg Take 1 Univ ers n 40 mg 2-27 tablet by ity of tablet 10:35: mouth at [place] [address] bedtime. Medical Branch gabapentin 0 Yes 300mg Take 1 Univ ers 300 mg 2-27 capsule by ity of capsule 10:35: mouth in [place] [address] the Medical morning Branch and 1 capsule at noon and 1 capsule in the evening. clopidogreL 2023-0 Yes 75mg Take 1 Univ ers 75 mg 2-27 tablet by ity of tablet 10:35: mouth in [place] [address] the Medical morning. Branch DULoxetine Yes Take by Univ ers 60 mg CDRS 2-27 mouth. ity of 10:35: [address] Branch aspirin 81 0 Yes Take by Univ ers mg Cap 2-27 mouth. ity of 10:35: [address] Branch LISINOPRIL 0 Yes 20mg Take 20 mg U nivers ORAL 2-27 by mouth. ity of 10:35: [address] Branch AMLODIPINE Yes 1{tbl} Take 1 Tab Univers BESYLATE 2-27 by mouth. ity of (NORVASC 10:35: [place] ORAL) [address] [place] [address] Branch CLONIDINE Yes Take by Unive rs HCL ORAL 2-27 mouth. ity of 10:35: [address] Branch CITALOPRAM Yes 1{tbl} Take 1 Tab Univers HYDROBROMID 2-27 by mouth. ity of E (CELEXA 10:35: [place] ORAL) [address] [place] [address] Branch ALBUTEROL Yes Inhale. Unive rs INHALE 2-27 ity of 10:35: [address] Branch metoprolol 0 Yes 50mg Take 1 Unive rs succinate 2-27 tablet by ity o f XL 50 mg 24 10:35: mouth in [place] hr tablet 14 the Medical morning. Branch atorvastati 0 Yes 40mg Take 1 Univ ers n 40 mg 2-27 tablet by ity of tablet 10:35: mouth at [place] [address] bedtime. Medical Branch gabapentin 2022-0 Yes 300mg Take 1 Univ ers 300 mg 2-27 capsule by ity of capsule 10:35: mouth in [place] [address] the Medical morning Branch and 1 capsule at noon and 1 capsule in the evening. clopidogreL 2022-0 Yes 75mg Take 1 Univ ers 75 mg 2-27 tablet by ity of tablet 10:35: mouth in [place] [address] the Medical morning. Branch DULoxetine 0 Yes Take by Univ ers 60 mg CDRS 2-27 mouth. ity of 10:35: [address] aspirin 81 0 Yes Take by Univ ers mg Cap 2-27 mouth. ity of 10:35: [place] 14 Medical Branch LISINOPRIL 0 Yes 20mg Take 20 mg U nivers ORAL 2-27 by mouth. ity of 10:35: [place] [address] Medical Branch AMLODIPINE Yes 1{tbl} Take 1 Tab Univers BESYLATE 2-27 by mouth. ity of (NORVASC 10:35: [place] ORAL) Medical Branch CLONIDINE 0 Yes Take by Unive rs HCL ORAL 2-27 mouth. ity of 10:35: [place] [address] Medical Branch CITALOPRAM 0 Yes 1{tbl} Take 1 Tab Univers HYDROBROMID 2-27 by mouth. ity of E (CELEXA 10:35: [place] ORAL) Medical Branch ALBUTEROL Yes Inhale. Unive rs INHALE 2-27 ity of 10:35: [place] [address] Medical Branch metoprolol Yes 50mg Take 1 Unive rs succinate 2-27 tablet by ity o f XL 50 mg 24 10:35: mouth in [place] hr tablet 14 the Medical morning. Branch atorvastati Yes 40mg Take 1 Univ ers n 40 mg 2-27 tablet by ity of tablet 10:35: mouth at [place] [address] bedtime. Medical Branch gabapentin 0 Yes 300mg Take 1 Univ ers 300 mg 2-27 capsule by ity of capsule 10:35: mouth in [place] [address] the Medical morning Branch and 1 capsule at noon and 1 capsule in the evening. clopidogreL 0 Yes 75mg Take 1 Univ ers 75 mg 2-27 tablet by ity of tablet 10:35: mouth in [place] [address] the Medical morning. Branch DULoxetine Yes Take by Univ ers 60 mg CDRS 2-27 mouth. ity of 10:35: [place] [address] Medical Branch aspirin 81 0 Yes Take by Univ ers mg Cap 2-27 mouth. ity of 10:35: [place] [address] Medical Branch LISINOPRIL 0 Yes 20mg Take 20 mg U nivers ORAL 2-27 by mouth. ity of 10:35: [place] [address] Medical Branch AMLODIPINE 0 Yes 1{tbl} Take 1 Tab Univers BESYLATE 2-27 by mouth. ity of (NORVASC 10:35: [place] ORAL) Medical Branch CLONIDINE 0 Yes Take by Unive rs HCL ORAL 2-27 mouth. ity of 10:35: [place] [address] Medical Branch CITALOPRAM Yes 1{tbl} Take 1 Tab Univers HYDROBROMID 2-27 by mouth. ity of E (CELEXA 10:35: [place] ORAL) Medical Branch ALBUTEROL Yes Inhale. Unive rs INHALE 2-27 ity of 10:35: [address] Branch metoprolol Yes 50mg Take 1 Unive rs succinate 2-27 tablet by ity o f XL 50 mg 24 10:35: mouth in [place] hr tablet 14 the Medical morning. Branch atorvastati Yes 40mg Take 1 Univ ers n 40 mg 2-27 tablet by ity of tablet 10:35: mouth at [place] [address] bedtime. Medical Branch gabapentin Yes 300mg Take 1 Univ ers 300 mg 2-27 capsule by ity of capsule 10:35: mouth in [place] [address] the Medical morning Branch and 1 capsule at noon and 1 capsule in the evening. clopidogreL Yes 75mg Take 1 Univ ers 75 mg 2-27 tablet by ity of tablet 10:35: mouth in [place] [address] the Medical morning. Branch DULoxetine Yes Take by Univ ers 60 mg CDRS 2-27 mouth. ity of 10:35: [address] Branch aspirin 81 Yes Take by Univ ers mg Cap 2-27 mouth. ity of 10:35: [address] Branch LISINOPRIL Yes 20mg Take 20 mg U nivers ORAL 2-27 by mouth. ity of 10:35: [address] Branch AMLODIPINE Yes 1{tbl} Take 1 Tab [facility] BESYLATE 2-27 by mouth. ity of (NORVASC 10:35: [place] ORAL) [address] [place] [address] Branch CLONIDINE Yes Take by Unive rs HCL ORAL 2-27 mouth. ity of 10:35: [address] Branch CITALOPRAM Yes 1{tbl} Take 1 [...] by ity of tablet 10:35: mouth at [place] [address] bedtime. Medical Branch gabapentin Yes 300mg Take 1 Univ ers 300 mg 2-27 capsule by ity of capsule 10:35: mouth in [place] [address] the Medical morning Branch and 1 capsule at noon and 1 capsule in the evening. clopidogreL Yes 75mg Take 1 Univ ers 75 mg 2-27 tablet by ity of tablet 10:35: mouth in [place] [address] the Medical morning. Branch DULoxetine Yes Take by Univ ers 60 mg CDRS 2-27 mouth. ity of 10:35: [address] aspirin 81 Yes Take by Univ ers mg Cap 2-27 mouth. ity of 10:35: [address] Branch LISINOPRIL Yes 20mg Take 20 mg U nivers ORAL 2-27 by mouth. ity of 10:35: [address] Branch AMLODIPINE Yes 1{tbl} Take 1 Tab [facility] BESYLATE 2-27 by mouth. ity of (NORVASC 10:35: [place] ORAL) [address] [place] [address] Branch CLONIDINE Yes Take by Unive rs HCL ORAL 2-27 mouth. ity of 10:35: [address] CITALOPRAM Yes 1{tbl} Take 1 Tab [facility] HYDROBROMID 2-27 by mouth. ity of E (CELEXA 10:35: [place] ORAL) [address] [place] [address] Branch ALBUTEROL Yes Inhale. Unive rs INHALE 2-27 ity of 10:35: [address] Branch metoprolol 0 Yes 50mg Take 1 Unive rs succinate 2-27 tablet by ity o f XL 50 mg 24 10:35: mouth in [place] hr tablet 14 the Medical morning. Branch atorvastati Yes 40mg Take 1 Univ ers n 40 mg 2-27 tablet by ity of tablet 10:35: mouth at [place] [address] bedtime. Medical Branch gabapentin 2023-0 Yes 300mg Take 1 Univ ers 300 mg 2-27 capsule by ity of capsule 10:35: mouth in [place] [address] the Medical morning Branch and 1 capsule at noon and 1 capsule in the evening. clopidogreL 2022-0 Yes 75mg Take 1 Univ ers 75 mg 2-27 tablet by ity of tablet 10:35: mouth in [place] [address] the Medical morning. Branch DULoxetine Yes Take by Univ ers 60 mg CDRS 2-27 mouth. ity of 10:35: [place] [address] Medical Branch aspirin 81 0 Yes Take by Univ ers mg Cap 2-27 mouth. ity of 10:35: [place] [address] Medical Branch LISINOPRIL Yes 20mg Take 20 mg U nivers ORAL 2-27 by mouth. ity of 10:35: [place] [address] Medical Branch AMLODIPINE Yes 1{tbl} Take 1 Tab [facility] BESYLATE 2-27 by mouth. ity of (NORVASC 10:35: [place] ORAL) Medical Branch CLONIDINE Yes Take by Unive rs HCL ORAL 2-27 mouth. ity of 10:35: [place] [address] Medical Branch CITALOPRAM Yes 1{tbl} Take 1 Tab [facility] HYDROBROMID 2-27 by mouth. ity of E (CELEXA 10:35: [place] ORAL) Medical Branch ALBUTEROL Yes Inhale. Unive rs INHALE 2-27 ity of 10:35: [place] [address] Medical Branch metoprolol 0 Yes 50mg Take 1 Unive rs succinate 2-27 tablet by ity o f XL 50 mg 24 10:35: mouth in [place] hr tablet 14 the Medical morning. Branch atorvastati Yes 40mg Take 1 Univ ers n 40 mg 2-27 tablet by ity of tablet 10:35: mouth at [place] [address] bedtime. Medical Branch gabapentin 2022-0 Yes 300mg Take 1 Univ ers 300 mg 2-27 capsule by ity of capsule 10:35: mouth in [place] [address] the Medical morning Branch and 1 capsule at noon and 1 capsule in the evening. clopidogreL 2022-0 Yes 75mg Take 1 Univ ers 75 mg 2-27 tablet by ity of tablet 10:35: mouth in [place] [address] the Medical morning. Branch DULoxetine 2023-0 Yes Take by Univ ers 60 mg CDRS 2-27 mouth. ity of 10:35: [address] aspirin 81 Yes Take by Univ ers mg Cap 2-27 mouth. ity of 10:35: [address] Branch LISINOPRIL Yes 20mg Take 20 mg U nivers ORAL 2-27 by mouth. ity of 10:35: [address] Branch AMLODIPINE Yes 1{tbl} Take 1 Tab [facility] BESYLATE 2-27 by mouth. ity of (NORVASC 10:35: [place] ORAL) Medical Branch CLONIDINE Yes Take by Unive rs HCL ORAL 2-27 mouth. ity of 10:35: [address] Branch CITALOPRAM Yes 1{tbl} Take 1 Tab [facility] HYDROBROMID 2-27 by mouth. ity of E (CELEXA 10:35: [place] ORAL) Medical Branch ALBUTEROL Yes Inhale. Unive rs INHALE 2-27 ity of 10:35: [address] Branch metoprolol Yes 50mg Take 1 Unive rs succinate 2-27 tablet by ity o f XL 50 mg 24 10:35: mouth in [place] hr tablet 14 the Medical morning. Branch atorvastati Yes 40mg Take 1 Univ ers n 40 mg 2-27 tablet by ity of tablet 10:35: mouth at [place] [address] bedtime. Medical Branch gabapentin Yes 300mg Take 1 Univ ers 300 mg 2-27 capsule by ity of capsule 10:35: mouth in [place] [address] the Medical morning Branch and 1 capsule at noon and 1 capsule in the evening. clopidogreL Yes 75mg Take 1 Univ ers 75 mg 2-27 tablet by ity of tablet 10:35: mouth in [place] [address] the Medical morning. Branch DULoxetine Yes Take by Univ ers 60 mg CDRS 2-27 mouth. ity of 10:35: [address] aspirin 81 0 Yes Take by Univ ers mg Cap 2-27 mouth. ity of 10:35: [address] Branch LISINOPRIL Yes 20mg Take 20 mg U nivers ORAL 2-27 by mouth. ity of 10:35: [address] Branch AMLODIPINE Yes 1{tbl} Take 1 Tab [facility] BESYLATE 2-27 by mouth. ity of (NORVASC 10:35: [place] ORAL) Medical Branch CLONIDINE Yes Take by Unive rs HCL ORAL 2-27 mouth. ity of 10:35: [place] [address] Medical Branch CITALOPRAM Yes 1{tbl} Take 1 Tab [facility] HYDROBROMID 2-27 by mouth. ity of E (CELEXA 10:35: [place] ORAL) Medical Branch ALBUTEROL Yes Inhale. Unive rs INHALE 2-27 ity of 10:35: [place] [address] Medical Branch metoprolol Yes 50mg Take 1 Unive rs succinate 2-27 tablet by ity o f XL 50 mg 24 10:35: mouth in [place] hr tablet 14 the Medical morning. Branch atorvastati Yes 40mg Take 1 Univ ers n 40 mg 2-27 tablet by ity of tablet 10:35: mouth at [place] [address] bedtime. Medical Branch gabapentin Yes 300mg Take 1 Univ ers 300 mg 2-27 capsule by ity of capsule 10:35: mouth in [place] [address] the Medical morning Branch and 1 capsule at noon and 1 capsule in the evening. clopidogreL Yes 75mg Take 1 Univ ers 75 mg 2-27 tablet by ity of tablet 10:35: mouth in [place] [address] the Medical morning. Branch DULoxetine Yes Take by Univ ers 60 mg CDRS 2-27 mouth. ity of 10:35: [place] [address] Medical Branch aspirin 81 Yes Take by Univ ers mg Cap 2-27 mouth. ity of 10:35: [place] [address] Medical Branch LISINOPRIL Yes 20mg Take 20 mg U nivers ORAL 2-27 by mouth. ity of 10:35: [place] [address] Medical Branch AMLODIPINE Yes 1{tbl} Take 1 Tab [facility] BESYLATE 2-27 by mouth. ity of (NORVASC 10:35: [place] ORAL) Medical Branch CLONIDINE Yes Take by Unive rs HCL ORAL 2-27 mouth. ity of 10:35: [place] [address] Medical Branch CITALOPRAM Yes 1{tbl} Take 1 Tab [facility] HYDROBROMID 2-27 by mouth. ity of E (CELEXA 10:35: [place] ORAL) 14 Medical Branch ALBUTEROL 0 Yes Inhale. Unive rs INHALE 2-27 ity of 10:35: [place] 14 Medical Branch valACYclovi 0 Yes Univer s r 500 mg 2-23 ity of tablet 00:00: [place] 00 Medical Branch valACYclovi 0 Yes Univer s r 500 mg 2-23 ity of tablet 00:00: [place] 00 Medical Branch valACYclovi 0 Yes Univer s r 500 mg 2-23 ity of tablet 00:00: [place] [address] Medical Branch valACYclovi 0 Yes Univer s r 500 mg 2-23 ity of tablet 00:00: [place] 00 Medical Branch valACYclovi 0 Yes Univer s r 500 mg 2-23 ity of tablet 00:00: [place] 00 Medical Branch valACYclovi 0 Yes Univer s r 500 mg 2-23 ity of tablet 00:00: [place] 00 Medical Branch valACYclovi 0 Yes Univer s r 500 mg 2-23 ity of tablet 00:00: [place] [address] Medical Branch valACYclovi 0 Yes Univer s r 500 mg 2-23 ity of tablet 00:00: [place] [address] Medical Branch valACYclovi 0 Yes Univer s r 500 mg 2-23 ity of tablet 00:00: [place] [address] Medical Branch valACYclovi 0 Yes Univer s r 500 mg 2-23 ity of tablet 00:00: [place] 00 Medical Branch valACYclovi 2022-0 Yes Univer s r 500 mg 2-23 ity of tablet 00:00: [place] 00 Medical Branch valACYclovi 2022-0 Yes Univer s r 500 mg 2-23 ity of tablet 00:00: [place] [address] Medical Branch valACYclovi 0 Yes Univer s r 500 mg 2-23 ity of tablet 00:00: [place] 00 Medical Branch valACYclovi 2022-0 Yes Univer s r 500 mg 2-23 ity of tablet 00:00: [place] [address] Medical Branch valACYclovi 2022-0 Yes Univer s r 500 mg 2-23 ity of tablet 00:00: [place] 00 Medical Branch valACYclovi 2022-0 3- No Unive rs r 500 mg 2- 05-30 ity of tablet 00:00: 00:00 [place] 00 :00 [facility] valACYclovi 2022- No Unive rs r 500 mg 2- 05-30 ity of tablet 00:00: 00:00 [place] 00 :00 [facility] valACYclovi 2022- No Unive rs r 500 mg 2-23 05-30 ity of tablet 00:00: 00:00 [place] 00 :00 [facility] valACYclovi 2022- No Unive rs r 500 mg 2- 05-30 ity of tablet 00:00: 00:00 [place] 00 :00 [facility] ALBUTEROL Yes Inhale. Unive rs INHALE 1-13 ity of 16:20: [address] ALBUTEROL Yes Inhale. Unive rs INHALE 1-13 ity of 16:20: [address] ALBUTEROL Yes Inhale. Unive rs INHALE 1-13 ity of 16:20: [address] ALBUTEROL Yes Inhale. Unive rs INHALE 1-13 ity of 16:20: [address] ALBUTEROL Yes Inhale. Unive rs INHALE 1-13 ity of 16:20: [address] LISINOPRIL Yes 2{tbl} Take 2 Uni vers ORAL 1-13 Tabs by ity of 16:16: mouth. [address] AMLODIPINE Yes 1{tbl} Take 1 Tab Univers BESYLATE 1-13 by mouth. ity of (NORVASC 16:16: [place] ORAL) [address] [place] [address] CLONIDINE Yes Take by Unive rs HCL ORAL 1-13 mouth. ity of 16:16: [address] CITALOPRAM Yes 1{tbl} Take 1 Tab Univers HYDROBROMID 1-13 by mouth. ity of E (CELEXA 16:16: [place] ORAL) [address] [place] [address] LISINOPRIL Yes 2{tbl} Take 2 Uni vers ORAL 1-13 Tabs by ity of 16:16: mouth. [address] AMLODIPINE Yes 1{tbl} Take 1 Tab Univers BESYLATE 1-13 by mouth. ity of (NORVASC 16:16: [place] ORAL) [address] [place] [address] CLONIDINE Yes Take by Unive rs HCL ORAL 1-13 mouth. ity of 16:16: [address] CITALOPRAM Yes 1{tbl} Take 1 Tab Univers HYDROBROMID 1-13 by mouth. ity of E (CELEXA 16:16: [place] ORAL) [address] [place] [address] LISINOPRIL Yes 2{tbl} Take 2 Uni vers ORAL 1-13 Tabs by ity of 16:16: mouth. [address] Branch AMLODIPINE Yes 1{tbl} Take 1 Tab Univers BESYLATE 1-13 by mouth. ity of (NORVASC 16:16: [place] ORAL) [address] [place] [address] CLONIDINE Yes Take by Unive rs HCL ORAL 1-13 mouth. ity of 16:16: [address] CITALOPRAM Yes 1{tbl} Take 1 Tab Univers HYDROBROMID 1-13 by mouth. ity of E (CELEXA 16:16: [place] ORAL) [address] [place] [address] LISINOPRIL Yes 2{tbl} Take 2 Uni vers ORAL 1-13 Tabs by ity of 16:16: mouth. [address] AMLODIPINE Yes 1{tbl} Take 1 Tab Univers BESYLATE 1-13 by mouth. ity of (NORVASC 16:16: [place] ORAL) [address] [place] [address] CLONIDINE Yes Take by Unive rs HCL ORAL 1-13 mouth. ity of 16:16: [address] CITALOPRAM Yes 1{tbl} Take 1 Tab Univers HYDROBROMID 1-13 by mouth. ity of E (CELEXA 16:16: [place] ORAL) [address] [place] [address] LISINOPRIL Yes 2{tbl} Take 2 Uni vers ORAL 1-13 Tabs by ity of 16:16: mouth. [address] AMLODIPINE 0 Yes 1{tbl} Take 1 Tab Univers BESYLATE 1-13 by mouth. ity of (NORVASC 16:16: [place] ORAL) [address] [place] [address] CLONIDINE Yes Take by Unive rs HCL ORAL 1-13 mouth. ity of 16:16: [address] CITALOPRAM Yes 1{tbl} Take 1 Tab Univers HYDROBROMID 1-13 by mouth. ity of E (CELEXA 16:16: [place] ORAL) 09 [facility] ALBUTEROL Yes Inhale. Unive rs INHALE 1-13 ity of 10:20: [place] 35 [facility] LISINOPRIL 2015- Yes 2{tbl} Take 2 Uni vers ORAL 1-13 Tabs by ity of 10:16: mouth. [place] 09 [facility] AMLODIPINE Yes 1{tbl} Take 1 Tab Univers BESYLATE 1-13 by mouth. ity of (NORVASC 10:16: [place] ORAL) 09 [facility] CLONIDINE Yes Take by Unive rs HCL ORAL 1-13 mouth. ity of 10:16: [place] 09 [facility] CITALOPRAM Yes 1{tbl} Take 1 Tab Univers HYDROBROMID 1-13 by mouth. ity of E (CELEXA 10:16: [place] ORAL) [address] [place] [address] Immunizations Ordered Filled Immunization Date Status Comments [facility] e Immunization Name Name SARS-COV-2 COVID-19 2021-03-04 Completed Unive rsity of PFIZER VACCINE 00:00:00 [facility] SARS-COV-2 COVID-19 2021-03-04 Completed Unive rsity of PFIZER VACCINE 00:00:00 [facility] SARS-COV-2 COVID-19 2021-03-04 Completed Unive rsity of PFIZER VACCINE 00:00:00 [facility] SARS-COV-2 COVID-19 2021-03-04 Completed Unive rsity of PFIZER VACCINE 00:00:00 [facility] SARS-COV-2 COVID-19 2021-03-04 Completed Unive rsity of PFIZER VACCINE 00:00:00 [facility] SARS-COV-2 COVID-19 2021-03-04 Completed Unive rsity of PFIZER VACCINE 00:00:00 [facility] SARS-COV-2 COVID-19 2021-03-04 Completed Unive rsity of PFIZER VACCINE 00:00:00 [facility] SARS-COV-2 COVID-19 2021-03-04 Completed Unive rsity of PFIZER VACCINE 00:00:00 [facility] SARS-COV-2 COVID-19 2021-03-04 Completed Unive rsity of PFIZER VACCINE 00:00:00 [facility] Branch SARS-COV-2 COVID-19 2021-03-04 Completed Unive rsity of PFIZER VACCINE 00:00:00 [facility] Branch SARS-COV-2 COVID-19 2021-03-04 Completed Unive rsity of PFIZER VACCINE 00:00:00 [facility] Branch SARS-COV-2 COVID-19 2021-03-04 Completed Unive rsity of PFIZER VACCINE 00:00:00 [facility] SARS-COV-2 COVID-19 2021-03-04 Completed Unive rsity of PFIZER VACCINE 00:00:00 [facility] SARS-COV-2 COVID-19 2021-03-04 Completed Unive rsity of PFIZER VACCINE 00:00:00 [facility] SARS-COV-2 COVID-19 2021-03-04 Completed Unive rsity of PFIZER VACCINE 00:00:00 [facility] Branch SARS-COV-2 COVID-19 2021-03-04 Completed Unive rsity of PFIZER VACCINE 00:00:00 [facility] SARS-COV-2 COVID-19 2021-03-04 Completed Unive rsity of PFIZER VACCINE 00:00:00 [facility] SARS-COV-2 COVID-19 2021-03-04 Completed Unive rsity of PFIZER VACCINE 00:00:00 [facility] SARS-COV-2 COVID-19 2021-03-04 Completed Unive rsity of PFIZER VACCINE 00:00:00 [facility] SARS-COV-2 COVID-19 2021-03-04 Completed Unive rsity of PFIZER VACCINE 00:00:00 [facility] SARS-COV-2 COVID-19 2021-03-04 Completed Unive rsity of PFIZER VACCINE 00:00:00 [facility] SARS-COV-2 COVID-19 2021-03-04 Completed Unive rsity of PFIZER VACCINE 00:00:00 [facility] SARS-COV-2 COVID-19 2021-03-04 Completed Unive rsity of PFIZER VACCINE 00:00:00 [facility] SARS-COV-2 COVID-19 2021-03-04 Completed Unive rsity of PFIZER VACCINE 00:00:00 [place] [facility] SARS-COV-2 COVID-19 2021-03-04 Completed Unive rsity of PFIZER VACCINE 00:00:00 [facility] SARS-COV-2 COVID-19 2021-03-04 Completed Unive rsity of PFIZER VACCINE 00:00:00 [facility] SARS-COV-2 COVID-19 2021-03-04 Completed Unive rsity of PFIZER VACCINE 00:00:00 [facility] SARS-COV-2 COVID-19 2021-02-11 Completed Unive rsity of PFIZER VACCINE 00:00:00 [facility] SARS-COV-2 COVID-19 2021-02-11 Completed Unive rsity of PFIZER VACCINE 00:00:00 [facility] SARS-COV-2 COVID-19 2021-02-11 Completed Unive rsity of PFIZER VACCINE 00:00:00 [facility] SARS-COV-2 COVID-19 2021-02-11 Completed Unive rsity of PFIZER VACCINE 00:00:00 [facility] SARS-COV-2 COVID-19 2021-02-11 Completed Unive rsity of PFIZER VACCINE 00:00:00 [facility] SARS-COV-2 COVID-19 2021-02-11 Completed Unive rsity of PFIZER VACCINE 00:00:00 [facility] SARS-COV-2 COVID-19 2021-02-11 Completed Unive rsity of PFIZER VACCINE 00:00:00 [facility] SARS-COV-2 COVID-19 2021-02-11 Completed Unive rsity of PFIZER VACCINE 00:00:00 [facility] SARS-COV-2 COVID-19 2021-02-11 Completed Unive rsity of PFIZER VACCINE 00:00:00 [facility] SARS-COV-2 COVID-19 2021-02-11 Completed Unive rsity of PFIZER VACCINE 00:00:00 [facility] SARS-COV-2 COVID-19 2021-02-11 Completed Unive rsity of PFIZER VACCINE 00:00:00 [facility] SARS-COV-2 COVID-19 2021-02-11 Completed Unive rsity of PFIZER VACCINE 00:00:00 [facility] SARS-COV-2 COVID-19 2021-02-11 Completed Unive rsity of PFIZER VACCINE 00:00:00 [facility] SARS-COV-2 COVID-19 2021-02-11 Completed Unive rsity of PFIZER VACCINE 00:00:00 [facility] SARS-COV-2 COVID-19 2021-02-11 Completed Unive rsity of PFIZER VACCINE 00:00:00 [facility] SARS-COV-2 COVID-19 2021-02-11 Completed Unive rsity of PFIZER VACCINE 00:00:00 [facility] SARS-COV-2 COVID-19 2021-02-11 Completed Unive rsity of PFIZER VACCINE 00:00:00 [facility] SARS-COV-2 COVID-19 2021-02-11 Completed Unive rsity of PFIZER VACCINE 00:00:00 [facility] SARS-COV-2 COVID-19 2021-02-11 Completed Unive rsity of PFIZER VACCINE 00:00:00 [facility] SARS-COV-2 COVID-19 2021-02-11 Completed Unive rsity of PFIZER VACCINE 00:00:00 [facility] SARS-COV-2 COVID-19 2021-02-11 Completed Unive rsity of PFIZER VACCINE 00:00:00 [facility] SARS-COV-2 COVID-19 2021-02-11 Completed Unive rsity of PFIZER VACCINE 00:00:00 [facility] SARS-COV-2 COVID-19 2021-02-11 Completed Unive rsity of PFIZER VACCINE 00:00:00 [facility] SARS-COV-2 COVID-19 2021-02-11 Completed Unive rsity of PFIZER VACCINE 00:00:00 [facility] SARS-COV-2 COVID-19 2021-02-11 Completed Unive rsity of PFIZER VACCINE 00:00:00 [facility] SARS-COV-2 COVID-19 2021-02-11 Completed Unive rsity of PFIZER VACCINE 00:00:00 [facility] SARS-COV-2 COVID-19 2021-02-11 Completed Unive rsity of PFIZER VACCINE 00:00:00 [facility] Vital Signs Vital Name Observation Time Observation Value Comments Source Systolic blood 2023-05-01 21:26:00 149 mm[Hg] Univer sity of pressure [facility] Diastolic blood 2023-05-01 21:26:00 88 mm[Hg] Unive rsity of pressure [place] [facility] Heart rate 2023-05-01 21:21:00 100 /min Universi ty of [place] [facility] Body temperature 2023-05-01 21:21:00 36.44 Deborah Univ ersity of [place] [facility] Respiratory rate 2023-05-01 21:21:00 18 /min Univ ersity of [place] [facility] Body height 2023-05-01 21:21:00 154.9 cm Universi ty of [place] [facility] Body weight 2023-05-01 21:21:00 88.27 kg Universi ty of [place] [facility] BMI 2023-05-01 21:21:00 36.77 kg/m2 Universi ty of [place] [facility] Oxygen saturation in 2023-05-01 21:21:00 98 /min University of Arterial blood by [facility] Pulse oximetry Branch Heart rate 2023-04-24 20:25:00 71 /min Universi ty of [place] [facility] Oxygen saturation in 2023-04-24 20:25:00 95 /min University of Arterial blood by [facility] Pulse oximetry Branch Systolic blood 2023-04-24 20:00:00 151 mm[Hg] Univer sity of pressure [place] [facility] Diastolic blood 2023-04-24 20:00:00 61 mm[Hg] Unive rsity of pressure [place] [facility] Respiratory rate 2023-04-24 19:05:00 16 /min Univ ersity of [place] [facility] Body temperature 2023-04-24 18:53:00 36.39 Deborah Univ ersity of [place] [facility] Body height 2023-04-19 18:00:00 154.9 cm Universi ty of [place] [facility] Body weight 2023-04-19 18:00:00 89.359 kg Universi ty of [place] [facility] BMI 2023-04-19 18:00:00 37.22 kg/m2 [facility]i [facility] [place] [facility] Systolic blood 2023-04-24 14:44:00 187 mm[Hg] Univer sity of pressure [place] [facility] Diastolic blood 2023-04-24 14:44:00 80 mm[Hg] Unive rsity of pressure [place] [facility] Heart rate 2023-04-24 14:44:00 71 /min Universi ty of [place] [facility] Body temperature 2023-04-24 14:44:00 36.44 Deborah Univ ersity of [place] [facility] Respiratory rate 2023-04-24 14:44:00 15 /min Univ ersity of [place] [facility] Oxygen saturation in 2023-04-24 14:44:00 97 /min University of Arterial blood by [facility] Pulse oximetry Branch Body height 2023-04-19 18:00:00 154.9 cm Universi ty of [place] [facility] Body weight 2023-04-19 18:00:00 89.359 kg Universi ty of [place] [facility] BMI 2023-04-19 18:00:00 37.22 kg/m2 [facility] [place] [facility] Systolic blood 2023-04-17 19:56:00 175 mm[Hg] Univer sity of pressure [place] [facility] Diastolic blood 2023-04-17 19:56:00 71 mm[Hg] Unive rsity of pressure [place] [facility] Heart rate 2023-04-17 19:56:00 76 /min Universi ty of [place] [facility] Respiratory rate 2023-04-17 19:56:00 18 /min Univ ersity of [place] [facility] Body height 2023-04-17 19:56:00 154.9 cm Universi ty of [place] [facility] Body weight 2023-04-17 19:56:00 89.359 kg Universi ty of [place] [facility] BMI 2023-04-17 19:56:00 37.22 kg/m2 Universi ty of [place] [facility] Oxygen saturation in 2023-04-17 19:56:00 98 /min University of Arterial blood by [facility] Pulse oximetry Branch Systolic blood 2023-04-09 15:26:00 182 mm[Hg] Univer sity of pressure [place] [facility] Diastolic blood 2023-04-09 15:26:00 115 mm[Hg] Unive rsity of pressure [place] [facility] Heart rate 2023-04-09 15:15:00 124 /min Universi ty of [place] [facility] Body temperature 2023-04-09 15:05:00 36.72 Deborah Univ ersity of [place] [facility] Respiratory rate 2023-04-09 15:05:00 18 /min Univ ersity of [place] [facility] Body height 2023-04-09 15:05:00 154.9 cm Universi ty [facility] [place] [facility] Body weight 2023-04-09 15:05:00 86.183 kg Universi ty [facility] [place] [facility] BMI 2023-04-09 15:05:00 35.90 kg/m2 [facility]i ty [facility] [place] [facility] Systolic blood 2023-01-22 16:30:00 187 mm[Hg] Univer sity of pressure [place] [facility] Diastolic blood 2023-01-22 16:30:00 95 mm[Hg] Unive rsity of pressure [place] [facility] Heart rate 2023-01-22 16:22:00 72 /min Universi ty of [place] [facility] Body temperature 2023-01-22 16:22:00 36.89 Deborah Univ ersity of [place] [facility] Respiratory rate 2023-01-22 16:22:00 22 /min Univ ersity of [facility] Branch Body height 2023-01-22 16:22:00 154.9 cm Universi ty of [place] [facility] Body weight 2023-01-22 16:22:00 87 kg Universi ty [facility] [place] [facility] BMI 2023-01-22 16:22:00 36.24 kg/m2 [facility]i ty [facility] [place] [facility] Systolic blood 2020-03-08 19:57:00 188 mm[Hg] Univer sity of pressure [place] [facility] Diastolic blood 2020-03-08 19:57:00 102 mm[Hg] Unive rsity of pressure [place] [facility] Heart rate 2020-03-08 19:57:00 76 /min Universi ty of [place] [facility] Body height 2020-03-08 19:54:00 152.4 cm [facility]i [facility] [place] [facility] Body weight 2020-03-08 19:54:00 72.576 kg [facility] [place] [facility] BMI 2020-03-08 19:54:00 31.25 kg/m2 [facility] [place] [facility] Systolic blood 2020-03-08 19:57:00 188 mm[Hg] Univer sity of pressure [place] [facility] Diastolic blood 2020-03-08 19:57:00 102 mm[Hg] Unive rsity of pressure [place] [facility] Heart rate 2020-03-08 19:57:00 76 /min Universi ty [facility] [place] [facility] Body height 2020-03-08 19:54:00 152.4 cm [facility]i ty [facility] [place] [facility] Body weight 2020-03-08 19:54:00 72.576 kg [facility] BMI 2020-03-08 19:54:00 31.25 kg/m2 [facility] Procedures Procedure Date / Time Performing Clinician Source Performed SCANNED LAB RESULTS 2023-05-11 05:01:00 [facility] FL TIME OR 2023-04-24 18:31:56 Adrienneporfirio [facility] (NON-REPORTABLE) [facility] FL TIME OR 2023-04-24 18:31:56 George [facility] (NON-REPORTABLE) [facility] OSI US DUPLEX EXTREMITY 2023-04-24 17:10:00 Andrea Mcqueen [facility] VEINS UNILAT MD [facility] NM INJECTION SENTINEL 2023-04-24 16:49:[address] [facility] NODE [facility] SEGMENTAL MASTECTOMY 2023-04-24 16:14:00 Jessy Alejandra [facility] SENTINEL LYMPH NODE 2023-04-24 16:14:00 Jessy Alejandra [facility] ADJACENT TISSUE 2023-04-24 16:14:00 Jessy Alejandra [facility] POCT GLUCOSE (AUTOMATED) 2023-04-24 14:44:00 Jessy Alejandra [facility] POCT GLUCOSE (AUTOMATED) 2023-04-24 14:44:00 Jessy Alejandra [facility] DISCLOSURE AND CONSENT, 2023-04-18 05:01:00 Janak Barcenas [facility] MEDICAL AND SURGICAL [facility] PROCEDURES DISCLOSURE AND CONSENT, 2023-04-18 05:01:00 Doctor Manzo [facility] MEDICAL AND SURGICAL [facility] PROCEDURES AUTHORIZATION TO RELEASE 2023-04-17 05:01:00 Doctor Manzo [facility] TO RUST [facility] BI BIOPSY LYMPHNODE 2023-04-04 16:33:44 Todd Purdy [facility] AXILLARY LEFT [facility] BI US GUIDED CORE BREAST 2023-04-04 16:28:40 Todd Purdy [facility] BIOPSY LEFT Medical Branch OSI MAMMO BILATERAL 2023-04-04 15:29:00 Andrea Mcqueen [facility] OSI US BREAST BIOPSY 2023-04-04 15:29:00 Andrea Mcqueen [facility] PATHOLOGY OUTSIDE 2023-04-04 00:00:00 Effie Peck [facility] INTERPRETATION [facility] OSI US BREAST 2023-03-21 15:30:00 Andrea Mcqueen [facility] OSI MAMMO BILATERAL 2023-03-21 15:30:00 Andrea Mcqueen [facility] BI ULTRASOUND BREAST 2023-03-21 14:51:00 Todd Purdy [facility] COMPLETE LEFT Medical Branch BI GERALD BASINS LEFT 2023-03-21 14:51:00 Todd Purdy Uni [facility] BI DIAGNOSTIC 2023-03-21 14:28:37 [facility] Medical Branch ASSIGNMENT OF BENEFITS 2023-01-22 16:16:56 Doctor [facility], [facility] [place] [facility] ASSIGNMENT OF BENEFITS 2020-03-08 19:43:50 [facility] Plan of Care Planned Activity Planned Date Details Comments Source Future Scheduled 2023-05-22 COVID-19 [facility] Test 10:32:35 (3 - Pfizer series) MD [facility] [code = COVID-19 Center Vaccination (3 - Pfizer series)] Encounters Start End Encounter Admission Attending Care Care Encounter Source Date/Time Date/Time Type Type Clinicians Facility Department ID 2024-05-06 2024-05-06 Outpatient Adam ALEJANDRA [facility] [id number] [facility] 13:45:00 13:45:[address] [facility] 2023-05-14 2023-05-14 Lab Rey Hugo 1.2.840.1 [id number] Univers 00:00:00 00:00:00 Requabigailjohn Heath Peckshira [id number] ity of n 3.412.2.7 [place] .3.181643 MD Mendiola8 [facility] 2023-05-11 2023-05-11 Orders Doctor NORBERTO 1.2.840.114 [id number] Univers 00:00:00 00:00:00 Only Unassigned, [place] 350.1.13.10 ity of [place] [facility] 4.2.7.2.686 [facility] [place] [id number] [facility] 009 Branch 2023-05-11 2023-05-11 Telephone [facility] 1.2.840.114 [id number] Univers 00:00:00 00:00:00 Jessy [facility] 350.1.13.10 it y of CANCER 4.2.7.2.686 [facility] - [id number] Med ical [facility] 419 Branch 2023-05-08 2023-05-08 Ancillary Juan, 1.2.840.1 [id number] Univers 20:15:00 20:20:00 Procedure Andrea A 80230.1.1 it y of 3.412.2.7 [place] .3.032572 .8 [facility] 2023-05-08 2023-05-08 Ancillary Mouabbi, 1.2.840.1 [id number] Univers 20:10:00 20:15:00 Procedure Andrea A [id number] it y of 3.412.2.7 [place] .3.865431 MD Mendiola8 [facility] 2023-05-08 2023-05-08 Ancillary Mouabbi, 1.2.840.1 [id number] Univers 20:05:00 20:10:00 Procedure Andrea A [id number] it y of 3.412.2.7 [place] .3.493792 MD Mendiola8 [facility] 2023-05-08 2023-05-08 Ancillary Mouabbdain, 1.2.840.1 [id number] Univers 20:00:00 20:05:00 Procedure Andrea Gabriel [id number] it y of 3.412.2.7 [place] .3.228380 .8 [facility] 2023-05-08 2023-05-08 Outpatient BARBI MCQUEEN MDA MDA [id number] 12:08:33 12:08:33 ANDREA morales 2023-05-08 2023-05-08 Outpatient BARBI MCQUEEN MDA MDA [id number] 12:07:46 12:07:46 ANDREA morales 2023-05-08 2023-05-08 Outpatient BARBI MCQUEEN MDA MDA [id number] 12:07:10 12:07:10 ANDREA morales 2023-05-08 2023-05-08 Outpatient BARBI MCQUEEN MDA MDA [id number] 12:06:58 12:06:58 ANDREA morales 2023-05-08 2023-05-08 Outpatient BARBI MCQUEEN MDA MDA [id number] 12:06:50 12:06:50 ANDREA morales 2023-05-08 2023-05-08 Outpatient BARBI MCQUEEN MDA MDA [id number] 12:06:42 12:06:42 ANDREA morales 2023-05-04 2023-05-04 Telephone [facility] 1.2.840.114 [id number] Univers 00:00:00 00:00:00 Jessy Contreras [facility] [id number] it y of CANCER 4.2.7.2.686 [facility] - [id number] [place] [address] Branch 2023-05-01 2023-05-01 [facility] [id number] Univers 16:30:00 16:40:[address] [facility] 2023-05-01 2023-05-01 Office [facility] [id number] [facility] 16:30:00 16:40:28 Visit Jessy Contreras [place] 350.1.13.10 i [place] [id number] Mi dical NAL 419 Branch BUILDING 2023-04-24 2023-04-24 [facility] 1.2.840.114 [id number] Univers 10:15:11 23:59:00 Encounter Jessy [place] 350.1.13.10 ity of [facility] [place] [id number] [facility] 805 Branch 2023-04-24 2023-04-24 Outpatient R [facility] [id number] Univers 09:36:00 15:35:00 JESSY ity of [facility] 2023-04-24 2023-04-24 [facility] 1.2.840.114 [id number] Univers 09:36:00 15:35:00 Encounter Jessy Contreras [place] 350.1.13.10 ity of [facility] 4.2.7.[place] [id number] [facility] 071 Branch 2023-04-24 2023-04-24 [facility] [id number] [id number] Univers 10:25:00 13:39:00 Jessy Contreras [place] 350.1.13.10 i ty [place]686 [place] [id number] [facility] 020 Branch 2023-04-24 2023-04-24 Ancillary Mohaydee, 1.2.840.1 [id number] Univers 00:05:00 00:10:00 Procedure Andrea A [id number] it y of 3.412.2.7 [place] .3.754902 MD Mendiola8 [facility] 2023-04-24 2023-04-24 Ancillary Motdi, 1.2.840.1 [id number] Univers 00:00:00 00:05:00 Procedure Andrea A [id number] it y of 3.412.2.7 [place] .3.358712 MD Harmon [facility] 2023-04-19 2023-04-19 [facility] 1.2.840.114 [id number] Univers 00:00:00 00:00:00 Jessy FLYNN 350.1.13.10 i ty [place] [id number] [facility] 419 [facility] 2023-04-17 2023-04-17 Outpatient R [facility] [id number] Univers 15:00:00 16:24:41 JESSY [facility] 2023-04-17 2023-04-17 Office [facility] [id number] Univers 15:00:00 16:24:41 Visit Jessy FLYNN 350.1.13.10 i ty [place] [id number] [address] 2023-04-10 2023-04-10 Telephone [facility] 1.2.840.11 [id number] Univers 00:00:00 00:00:00 Todd CHILDERS 350.1.13.10 it [place] [id number] [address] 2023-04-09 2023-04-09 Outpatient R [facility] B [id number] Univers 10:00:00 10:28:[address] [facility] 2023-04-09 2023-04-09 Office [facility] 1.2.840.114 [id number] Univers 10:00:00 10:28:20 Visit Todd CHILDERS 350.1.13.10 it [place] [phone] [address] 2023-04-04 2023-04-04 Outpatient R [facility] B [id number] Univers 10:04:09 23:59:[address] [facility] 2023-04-04 2023-04-04 [facility] 1.2.840.114 [id number] Univers 10:04:09 23:59:00 Encounter Cheryal [place] 350.1.13.10 ity of [place] 4.[address] [place] [address] [id number] [facility] [address] 2023-04-04 2023-04-04 [facility] 1.2.840.114 [id number] Univers 10:03:28 10:03:28 Encounter Cheryal [place] 350.1.13.10 ity of [place] [address] [place] [address] [phone] [facility] [address] 2023-03-21 2023-03-21 [facility] 1.2.840.114 [id number] Univers 08:05:52 23:59:00 Encounter Cheryal [place] 350.1.13.10 ity of [facility] 4.2.7.2.[address] [place] [address] [phone] [place] [id number] 2023-03-21 2023-03-21 Outpatient R [facility] B [id number] Univers 08:05:08 23:59:[address] [facility] 2023-03-21 2023-03-21 [facility] 1.2.840.114 [id number] Univers 08:05:08 23:59:00 Encounter Cheryal [place] 350.1.13.10 ity of [facility] 4.2.7.2.[address] [place] [address] [phone] [facility] [address] 2023-03-21 2023-03-21 [facility] 1.2.840.11 [id number] Univers 00:00:00 00:00:00 Cheryal ALVARADO 350.1.13.10 it y of WOMEN'S 4.2.7.2.[address] [place] [address] [phone] [facility] CLINIC [address] 2023-01-22 2023-01-22 Outpatient R [facility] B [id number] Univers 10:30:00 10:44:14 TODD PURDY of [facility] 2023-01-22 2023-01-22 Office Noemí RUST RUPA 1.2.840.114 [id number] Univers 10:30:00 10:44:14 Visit Todd CHILDERS 350.1.13.10 it y of [place] 4.[place].2.[place] [phone] [facility] [address] 2023-01-22 2023-01-22 Orders Doctor NORBERTO 1.2.840.114 [id number] Univers 00:00:00 00:00:00 Only Unassigned, [place] 350.1.13.10 ity of [facility] 4.2.7.2.686 [place] as [phone] [facility] [address] 2021-04-04 2021-04-04 Letter Doctor NORBERTO 1.2.840.114 [id number] Univers 00:00:00 00:00:00 (Out) Unassigned, [place] 350.1.13.10 ity of [facility] 4.2.7.2.686 [place] as [phone] [facility] [address] 2021-04-04 2021-04-04 Letter Doctor NORBERTO 1.2.840.114 [id number] Univers 00:00:00 00:00:00 (Out) Unassigned, [place] 350.1.13.10 ity of [facility] [facility] 4.2.7.2.686 [place] as [id number] [address] 2021-03-04 2021-03-04 Outpatient Adam BAKER [facility] [id number] Univers 09:10:00 09:10:[address] [facility] 2021-02-11 2021-02-11 Outpatient [facility] [id number] Univers 09:10:00 09:10:[address] [facility] 2020-03-08 2020-03-08 Office Yolis NJBA [id number] 14:45:08 15:08:51 Visit Stacie Octavia Krystle 350.1.13.10 Surgical 4.2.7.2.686 Specialti [id number] [address] 2020-03-08 2020-03-08 Office Yolis RUST [id number] Univers 14:45:08 15:08:51 Visit Stacie [facility] 350.1.13.10 it y of Surgical 4.2.7.2.686 [place] as Specialti [phone] [facility] [address] Mabie 2020-03-08 2020-03-08 Outpatient R [facility] [id number] Univers 14:30:00 14:30:[address] [facility] 2020-03-08 2020-03-08 Orders Doctor NORBERTO 1.2.840.114 [id number] Univers 00:00:00 00:00:00 Only Unassigned, [place] 350.1.13.10 ity of [facility] 4.2.7.2.686 [place] as [phone] [address] Results Test Description Test Time Test Comments Results Result Comments Source Pathology Outside Interpretation 2023-05-16 17:38:58 Test Item Value Reference Range Interpretation Comme nts Materials n6ibzDAtDHSeuTNfPqCdJBAbLYDqg8oqUNFwjKPzZoDgOuOjJkEtQkclpOUhGGHjSgTjh0gpv785wIWc j6gkVXEqSmB0qCRxBYEuwWAsZ662UGLuVScvj2opz0UdYNCfpFPnm5J3GQUFnxqyzNt7nFkbG92ie7L2 BbbeQ6ylBSEnVWMxZ1XeEO4xLFIuGgq2NLO9HXB4KWLxCMZxU Received 7MbIL1tTYStiHMuVLz1i4okxTiqEBFvBMP5u7xvPVdybcFhHF6tzm2xfGl8r8tkglZuAIYmJJKyeKZSH KFyT6JcjOlpVy1doDo5rWtuSzxyXVK2Bmf6IE6sog29cef3bWasQCDpcbetYuF7QSioWYUjzxngFLa9R UcrSLOgiWbgEBniFJGnkxgdXNjwYTErtLK1FHAbgEJxF8ThDZ (test code KdNEutCLOnkqo9CiXaVn5haTKzqKbtKFsyg3uud5crfULlZum7VPOeKnOgIkgpZRako8Xcq5zaYMFsso 9iHPY7vLNbrYamf3F1lGSbMNFktVUkliGcHEIxqa26rDAspAWgfERycx3cykLfdNXtnAFsCTO5aWJttv MqUNCnbZWpIMCkKV3gqEKcIUCnwL1hmffhDOZeMgDplvggKVJ = 9973) iuJxhyaZyLy0geCvrVWV4YRprV5tcrU6hOhS4FVnnQ7cwsW0uSGt9SNoptFA6RBGhwA6lME5fdorsy4r yPxSbRG6cizzma5rrGxOlSP1bpuj1m5plUZS0JAvjRUImTyG7zmD4PWYecDHaQDJxlJqzVLkye646WXD 5GqTqEXQtj2AwH6PtsRtmX27pwRqcH37fGMGhmZvbcP9gyDqp cD5vFfDgYmSaKEe0hd59RAe5fxbhkYgvYGa3fpAjENUpUZD3HACipRClCZBcD6y8djXrUSPdOFE4LUBo zAJeOXLsE9g1eiBjELE5ZZz0onRkDJEjcTWojKCcWHBnZwDjxJZkHTNnFsDzPALepQIkbFYesMAdmH2y qCoeKSSboQMurP0jUPH0AESmpsgdAmPdnLSpTQDetRFuld76X XOusjHpfQMtgLzwqGDbDKB2NOCuPSMgVEMaOMJ8CHAdOnFfqeIuRTcyjUPsSLSrOERuSFBrBISdYAC0E MZjVuSpkpXpZKvotHCxHNZbBOZtMJAcCTRkPYG6UDOzWgOwyvQyTGvvqGKvIGNcFZTmMVEgZGRjQFX6L LAdJzRlgmVzCJirrJObDXRqOHzpcSTvWAR2J1brgSOvNARkVM nhgAZgSNEiT7ivdZZqCKalOKLalUAzBvkiRJHevGPpKkQpB0loRDAlRmZvZ7TbpYn0LEPyHPFbskHqeJ AohOgohMJxIBA1CIGaBZEnJQJyEEF7DIXwXfVvseLiKJqvwIQhEGZmCGOjWBOwFLMlFJI9KYZdCaTjbw ZcBPjtaWMcTTHeZEHjHEGjYHGdHMH7KTQuFbCtncIeUGcntIH tWUZbGTSjUIGtCCQgQNJ6BYSqHkLwygCuRBcyhQNpKHThLTlhpPJvVFR8R7upeIHuNTBtQThepKUsTZL pL5cxfKCbNOubLFHhoGViRlbpXIJgjTPuAcLjB4kaVDQjKzPaY8MduEu8DpZmYTEhlvVqkRHokDepcBV wOTZ6FQWsWNIjTKNpVPM7EEDwBrWhqzZiETlprGQgAGMoXCUn AJJiJDDkGUV7INNqDeKwouRdWOvxmCNmBRXfACOxMFLvVBJtBSA6AGUhAsXlqvIaMLmcpCOsQJRjYMCr TEBuHHCkUSJ9BCSfTnIvbeOnGUazvUQeCLRrGLpybPOdRGZ9B0bzcDGiXUHqMZepvVHhQXSrE9wmmCSp ZJhvDAPicRJfJesfLXVafYEeNjWiY0siRLCtFgDwA1EqwPz9K jUbWQBbkdKbrK01Ifdlo2RbQKPiFRJ5OLrnVFfhxQfcfNUwbjoaYQryksKaSHfpcfqzNXNzAAbrJ7pvX vYhAJIxvGfjEVpaj7UlHEHqMBSrGimmupXaWZEjOMKgUYYerL2zMourD4BooH2aSOhlNevoO8dyCMZsd 7CzcW6bRToutGRiaumeUMguunQfOYcvcrmvQNPnKOzqG5gsVe MtOHBluLomMGgxi6JmYHIqKLSoRhialqQeNNs8byAjCBYbxCfolAYlOEldrtGziAmoq2UnmcEitPupZZ UgTMv9vlVopkhwoCy4fRTklWptKQYitYoctX9aKpOvChMvXVxdmWGcfxpaYReqcpNcIGpmtlqpAXEaYC hbT9tePyKfNLRskDhyXKivv4TlGCZiXPSeByrpmjYaACMnM78 zhAZgsGZoSRMuTReuRTAoFGLoJhRgfTEbMlVkNbKbcApgwSirKYtwBoGfUTVcINspW6zgAiOhQ1EhDDD fBaZbtZQmW7fgY9DvaLxwVKSbBVvqqKBeXXLnqRWrPFU3jZIfsvYyfFPhcWBsQGLjJWgqPFK5fRWgnul wvZBxcdnaZTgholI2PJLxNWbzTHLnJCSoTmGugTYhMnAcIrFm qRxoeYyxQRimYfYdHSBzLQbhG2ejTnMvW3IsYLLiAuUbLkCSDNTvrYXbEQpmgJTpugxsGVfmmoSzZXdg ryifSISwYCgzQ3jnCoEvOQCqwNjbQPmfs2DsNPGfWWUsRyvzejVkHFo9tdPnFYKxjJrdoF00Zuixax14 GKKlh4kjIKVeH7FrkQZxHEHxoDQlSWvmZMtnkKTkVDGrAcdzB BUlfFSoJSInAPrekQVfCPRsOyUuLVAxxUVsWEEuJNAlaUQlNSL5T6n6qpEcEOJuAGt4biMwGERbZpPyx UYpGEJ2EJv4CgcfjvY4sIXnV3w3UwwffaBwKMwtbVJyui88FELngmEldFSanXfbdDAjYNC4OXXeNOSnI NAoZTW0LDNrZoFrrsDiGMgfoIBjNQDaTFXfCMAlZQWuHUI4QU SfChFntxXsAJzicZFdKUUnPJPoYVBbITWjKWP1NRYyViOyezEyDVgjlLXuGHCzHZMiGIJfNRBwCBA9VA LlAzEecoTxFTsdhLSoHPElNKcxsNBvBPR9G0tckRHkSPLrOWxstLRkBTFvW8gciIAmROiuAYXcdQGpOb jdBPVtgCQgNqYbD2xwSNYiAyWzK5UwrYa6NUIqCSYrynZfvTU xnVotgOJiSKG5CVRgIZQsVOYkQYO9XWMaOfIpcuSpXEzkuXXuHNHuUPKnDDJqMAFwYBL5SCCdWkQjdrA gWVlvsSPvOQKiVLRuMFChXWCpQDN8FKPdMfYnlgHyGQhmhNVnMYFxGVQbHWAtMLKeQOB8FLZqNpJnwyC nFFlbhRFmLNEaXXeyuBOuEHJ1C0bvjUCgWXRgYJywrDMzBUWa P6ilkZQaUZayHDGhzROmYwjlDSYaoGYvMvAuL9jhCJMzPdCwD3TqfGn4AxEiXRZkyqMetSGznWzvnSTf SAT3QKKySRHaNNUhLFM0MIGgAvEzabJiLDpjaOPhLVCcPKObJAFxCGXtSDC7HRCkXzZsxmToPNdoaTPh VHJfNVMlZJTcSELxNBD1RQVlTfUeytCrUEtuwEKsFBCxRNVuZ DWeZDZsDDE3AAQkNrShogCdTDzblZGlZXAnVXxwdLNwXCJ9V8yneOHxAAOzVWlwbWXtITSpF0hrxBDmQ EddCHVumDAqYrbrEFCxqZDzSrXxZ2kcYRAhTcNsJ6KcbZn7FtGyACKttrZafH55Nhqhp5HsMRTrOOZ8Y KolNGrazImtnOPjgqkvWJviyrT5THMoXFvdABGfTRAbWyAfgM AsSsZhYhRheBexkNmfSCkfDfGkKBMbKTlsG3mgRzLaL1QnIOVbAmKeQX6oRsOxGFS0RRO7EBXtAmFTJe spCGCQIH1GF3EaGHJhFJMVVCRlryAANaTVFnTiTZGnGuVhIGB8CNRFKXOkBJVFE9TYNkjhGRKSP8OnsQ nuoY3gAgCqTcFcUWnhFE3hMDNgF2tvpRAhPFGwGUDbC8qpCnG ruU4gjFycJSloHrWwTmWcHPdimOTdbEuaYNauZYWypzKmzH87Utcir2LwOVLpVJZ1ZKodLXmlzLzzfIW gfaetHHfvhjF1AWRjDImtGAQkXLNmYeZwpRIgNnPpBqDgcNlnwGeeOVeaPqLwHYQeZHwgH7drDaUvN0U sAYZvAqDaFU7aKM8sIARzHBBqjpC4QdVlQvYeBpUktXtuvD0w EgPyJnIoLQjsHD6zNWXrA5dkdHEySIAwNLAiB7feVxLtjM6umBbsNIchQxXtWqPgAWbcaCFirXuhGMxt RTNmacSetH12Vuuzs4TrYQUhPNQ2FInjKJqtcDpwlCNhedfxQJogaaO8UCVvACqeUZNiUGZkExFxpWXl GzGcIpJyyItovHcjTRngReUfPEYxITniG6iiLbIwO0KdPFKyD fNsTd1zPU4hJCZpJOTbfmI1OxC7SbJbVfWexPhkoI2aEeZxXtQoLIbkUK1aPIIeE3gyrAPzLNGiCQHzY 6frCyGexG8mzEfmQDpoDqXgByQxWDuloPMxzIlpIPchOLpfbASiOIDul6rvCAWqCMYekMZsHFQ1yINgl pBiiCenpGfbsJ3zPvMhEzQyJUpbtBQciupoQWasatSgEGlnxx nfTIKwTNriW2czXkOcMHScyNhkTAkhy1CzVRWrTOBcRzUgrIUwzM== Diagnosis p2ddpBHuYEOyzZRnEWEpP6lpuuKjBYOvjKPzC0GwirndAPniUE9hMY2zhCtlbQEcuKHiRVMiQqZur0ah d151bNJpy8zjHOINigesnRq2yFwdF48fa1M0GlxlA6ckVBUmZTzeZLDmSGfsuLDzUGc5SNZsgJHyyhAy DgGyCFXnuKMoqSU5HSLuIG2oxtiyGHgbRGaxISKdugZ2UWJhr (test code SBtG5IyVPYiDQ7iptozLFM5HCkfJFTnMZZ3LwBuCLUkn6Mnqit9PmMriOPyZVnsmMCgvdaxvgFpKZQfM XLTwBBhwXGkWEoRInFjFAbyHjWsKYFoCSLSRMWySAGCF1BUDygaDPRJX3XwANDufSsaX8HiBRBznhD1X rNwXyJyAtTyUbceLIGaU4PoUOUztnhtkCkoMRqmnG57EiBsHY = 34) 4gVFRztFRbtXgekMZpuZPetO3xkMFox1KlHFSonY5ow7a9SNPmrrfziIQnKaBhOcbdRfKyZMsrokNqHg ZyTWpxyJtazj1uDUW0eOBvhHYvUA9qHHD0zQ3iUTCjOKLdwlKlORTbewdoDDYrpRq0KhLcMpjmOGnkzy hzZXPYArVCTWM9FUQoQLLtrWvccA81WECerD7sWGUhLHiemcy niT5hvobrNNGcuFWubn7oNR0mmQYgYYocOdfhkSL0OzdsuCUrSUctIwK6PSnyyU51SmSgpQpoBkL0XSK MXdJRF7uBSZSUOJ4YAFAWDGWYFbRRIl6YHHXNFfAEW03jAq7OWOgoL1tUWSBSWDIZONYTPrPWVuXGMxI HL6vUUNZMXDBILLsoF2DFC8nWS76DWFFJPdHlEA8VVOLOHoXk JEMNST6EHSChL3IHA8tAL80QNGIQYaZJBj4LJDiLGJIhZ6CQVOZjRi3QCSdCR6oCCFUMWPWUP7wWP7zJ KEaTOIIFUQKdOCJwstYNN1zKIMUITQYZVQfHWexiQ4MPY0hXI94EQWKBQfMBVy8QQNgROAJhV7EFEYOt YRTKHIWTN10WVE3LXK5lwKLlRSrvJZqwtMOqiTjjAWekBDKqk PMfLLJyXAGUaHPwqUZjTHmWDvCkMQYzHoIuOVN0DBESBMTtUWZKA2JJDqhyJZKPB4MsMRGleKkuY3VfQ WDlzlG2CdJpImRsQyEtXexqXDFyU0SmYDIctrkvnTouMBasqQ37BlSzDW4aIRkoaGmtie1kQVghzHYgw ZHcZY11nX2sfJyaQGigiTWan170HDHchxqofSGrVhFkKvcuCd AiFGonurUrSeGfL11gASx8sCOtFH9kDVNlGM6xAMV3iU8gIYVvDAHhvmImFYBhugMdODGiryZwMPJcUA adAXRhypnjURTuxUu5RzOgAqhlCSyxumbiLAKMVoPXzP5mbMWzd1HdDBJchWnqcNUzQCaaCnMun2PosY ppQUunVTM3N0kthK4jTbulIRBrhIwzBTKsQAwzizM3SDUvA35 fYQe3uOGqVR4jBZDmx2g7oAAexeP0aJ61yeKadF9rm8zmc8s8KQCpmZWlN6YrLLEiwzG0pL8vshLffhP hEM96WMfeIrNlKjysCPCgrGbeRNTlDXItTCutEWyvwR5lUKCmIIJrsepxyCxqEAabtFGwsHxnRsSnLAW cBIVgOPDtxHypkPPzjQdtoKLjrHYpwP0hqYLcu8zvONVuZGZh TPJ6VVBIGP6vAfndKrF1BMOhKZdaXG8yZZVbEIg1XNYtklnntFJrCcBdCjvxWnGzZZhliqHxTmPbTD8X JABYMpUzHAMDOLXWHUDEPjFAOo3VPCzdJn7BMDrsVH7EYSHDVanZIcEoWV7TDZfOXI0XTTzTUI7hXAaN WF9ZUD5FQhSnL1NJFAHSWA6HXwCuRCLplbNSR9tCJWVABNEWR PxHDvqhW4KFK8lBS85JMYYHFqMUYi3XAFtWFVRsB0STHJVhASPJCUCBS6sXAZdFPEuHZh3XOmrTCbAWK Y4UFLWUH70HRRmQCeJYLO2NCAoMYLR6MQ7EURDVCzJiGFCGMVCIKJJJSFHiE3nBLCJYVONfE5MFGAVFA W5PWiIhPljcCIWgM33MLBDtDCDKDFjLYMBEYKVIXbYZTd4YXO TRUfCXXU1UHOAMHHOSSEUVRA1VAC3DRafWUeRTMmGRELQFO0CEJ27dZXECVASNZ0UIKLEYPQkPR8FuWO hAZqYtLZ7BNJhTIKmNMlSELPRmCG6NTADFHH9OLOPIMqRQMieHFxBPTjImBKXZDIXTMKKAVBPCPB2JTf qdNDZhR2mhzuzvdt1rrQEaz6GxsSCrc0ZncK8jwNOfPSDwtcq hwKatNCufcLFjvVrrNcHdZODhGQVjXYYjwIdbfKUbbJtcc4MiAIVio9QcjFFcG3ouZFJfgRFlu2suohW wu7atKYPkVBItTcsyRVDkuQtmDPQoDQQlDFziTMaysI2pVMWtPBIaCOHtfAWcBDGrrzAeiF0fLUVcsqA 0wL3kukBkviMpXG14AcwjMCYfaIJtXAepPyQjKFJfBMxzyB94 YwNnOC3pKeSlUCF5NKMcMJH5PYVpwxAwyyhoxmMfVZKgbA3gVBJ6V5htfM6bMEtpyKgyRYJCWog1WESk tifahEB5ROYvlHrpNGO5FEPUqzWuv6EtqCVsZA8sjFbsDZjdgs4cfLGej2BayOJoe5RdhO2auHBtZPxr XxA5HWdktH26RsYjtCefGwX1PZbpZTRafGx5XkPpBrsuDUdvq wuhCRJDGwVEpbGqq9HmKHkzIgKfBE1wHXhrdNBeGKNziU5nUIB0M6oauE3pKVlxzTchKSGTLBm5UASpq uixuSW2RPWntNtbKBK0ABWSuTVzq3SkvVZgn8NzFO4aWEI4yY7nPSOtDTOtnpNnMRWeykwqhCGlItWcJ izeAfJzGGftmaTbCxFwyEDmLDgyDkBaBCLgQArjrC60PrBuHu 3gRnHcEFS0QJKaOKL8ECEyAGBmujKhHF7xjiposwhmBQeakRJas03vTHWvuYLuPPvtKRbnrCEfINjqII B3KVrscN0jMCMwREIhMdTuVKNzdQ8uSEhswx9euPOat6PdxGTpf9EicT7uaSOjLSniMkE1KYerbV15Qp HieUaxSgX3CKmcBJLulUs1GiLgYjlpLDiiqlhkBSTVRvJMbyF hj3NhFWszAqFgIIDdy3MbtmhaomQyZUSdyE8gBSH2Q0nehG5hKHsmwKigKXTXCKy5VBMyqqhiqNS3FSI bnYomUYI9WJEHlCRaz0EtnMHxc6NqCW5nMHP5hY0gHWSdBVLegfWnJVKztoooSBHcALEehi9= Comment y7pjjMVoGKJguSFyTCGmR7hqeeMdHGLuuIZiE4ZyakumVSgsPJ0nTV5abKfriPXpfPWhLZUzPbSrv4zi g786zUDsj5hgPHXTpelhjUs0mTwuS35gg3P7ShveQ7jtEQRfUDpfRGEkMErcqRXfGAv0VQOpdWUwfsHz MyIrXQEyjTKkqVU6BODhAB6qpkurPAxzFOijSGQrctB0ZIIuz (test code WZjY6CrGXXsNR6hcmuyRGF3WHmoRHDpEJH2TmOxIXQsd1Iugxt5IaFtvSHjCBdnfUJxbtxwitRjXTAuB FBMVyFzKSxnYfF7YWykGiQcBFTwHRC1Xh4ehPXkEQFxzU78tx0uhIE9u9DtIL1ah6SovDDgfwRdwX1ot sBOJsogzImaPZXxfIyhGWVokVfelDYsqUPxPDXamG1ooKMwtR = 9835) PzBi6nANozrFXki8EliRg6JTSde9Hbk4ayFBH0k1MvxVJypjNqzpOjt7FnsEPyiuSwBZCmvKioBRSgZV Rjk8TvhUb6XKOxd7NuT0sgo32eH2DspjvdOiMjQnHicJcqqQcbG1h8jdDmsK0zkBy3gBUnsLGzURTxoE qwFUX5uiMnnW0qkX3dGRXhCQWtCXU3neFhYkKre6tbNEDyETV smJfwjzgeQ1ZwV6hue33oAZPoSDR4mYVaJCPfFB0dIJYpEmZteC1koPw7xCEwvACdIJAlrVqmEPNwy2K uSIL6pJVbfK78HPEdkiNdTUGpcPLkWFZzhvCdwb7vTL0nPGgwRHwpskLlbSAhRUL4H0WieBGoEIInpX5 dpDNly3biz1Sgo4waFFV9k6QfcTCqtfBvl9WmiMf8kAI4YAke XVE4NYqgIBM1WG3jZSN8kCjyKAAkKcN0bQNkxJKxi2FjdgRvjuDnVQ49YSQssV3dcRtxSTLmhmYbKbxp wQW2XckmYCWzuFQvBUlgSPjorWKmsRigRPattB3yVZHla99dbusdydKngqIerNPkrtNlTyE6nDTzoO13 SEYjxzVaC9ZjZ7kbr87dWJjxdFlfIAYmo3DciZq6bBEyQCKyg aPzWFJpRNpjHwtyYBLfDDK0vv3rPA1gmdHxZYQ5u2V5VKDhy8f8cBFqTGa+BAXuOGEtlIIpsovzvI65R F7ftHD9VS3unLRmQTHng7uol9Hkex8mOIDzWOMinIOyvigrSB7tcLSyhhJdTCepASvrx0VjsiA6rjCiz 7NkyyK6QHDeauPbcyHheXacRqscEBXhFFUCXpJJPZB5NC0zF1 Q5hCMrIUvuO08bJZHyIflzSMSrroQDyG97YuxiHBShXxyuKJXkmIBtYRtpQEyxfU7pJHQcNLWAOcSnGS PtDyV3GTWyPSUfkDDtvVF4HJZmeRRoJNRmFMTbaQ3qvU3kdN8uxI2ep5HslV3uBBAxh8cpDVNwl3HpN6 Tol9Wjk3PhfY6zjmusqG7nfCnzQVWdR3TuLF1kKOZ7bP4jKPM euXcuAHjvNqjmC5lhFkE1SJRovpI1pZEugJWhdWH1V8NjaZAqqfTrWDmkpNMbIUA8zTVwgnTaRVOmCAB kitTmNL0bSRJfRqQaipLjs7w8IRPgWIQhxK1wkGQlTDKeADBxDQueWOZqw8NrPITaNd6goZPqy8o8yPU vuPComFJodx15oHVyu6XfwXHmd0OsA4EjcBRjBTBqi8NyPSNm JIvvl6i1wZPbAcOonfTsBZ7dTPL3SGalsX6hCJCbplGkKiWnUN7xNX35a9AsprZjqjE3nULffJEfdEG4 O4UwmAEkboRqRDJfe5WfF7wneGXyGHxzaAcwoqIcV7OnkmMaS1dclgepagV5liBvSISpRCWuT1cxpT3a HGkcjDvxK5YtSOB6hW8kDOVsgPjjMUQmtNjlm8hoSdZaaxI1l J79lwQomS0qt0itpJGxAfY1f7EfOMRjp5JotYjiulDth5N7ec7aKGP hcn0= Biomarker i2frdACdUOZcbUYyWXUcH3kkgtFnTOEiaHBbH8HnvkyyODjlHE2pQV1rbWfjjGUouWHxCRSqUxNen9ld z837qSWat7wuDJDFsoqqdLo9cOncT73nb4L7QgorY6ocLIWoALpmHSIqPAauyGAwMYs7FPTbjZSszqFu FrNfOODmiHDtqYI9VMSrMJ1yetwxQBxcAMetZJNqlbK4XPWrl Block(s) DRgM2XbNNWiGZ4zsnppUFY7QArdUVWpNIK6ToMoTTWzw0Bblkk0EaWlwXHbRLjqfVKsbbrmwgWaXXP2d N3iXwJzP3FvKXOuYh2vQOIxOWyyHolfF6weWxMuhPNctT== (test code = 9841) Disclaimer v5pewTMbUOUtqJRwPoHuJKQwXOCjj8biTIOojKAeNlWtQqNkRjTnTkfplGUeNSWnLaRgr5psa320hBVk x6ecKHLlLoL9sCEnFWLdsFRfX652UUGtNJoxw8xwo0HqPBEbaOVst4T9KTYWauxpyUm6yXtbN74hs3Z9 SdajF7akGVFuJTKkA6UxBX3fGMDoCoy8TNU7EDN5AEInSJHzA (test code 8DhFM6uHMYbrTRaLOl8i5seqGuhZNJbMZK9x4azHRdguiExQY5vbb6cvEt7c7urxmTsUMMgCLWvtCCHP OEfO2OkuGafXl9unJp5kCvlRvjaYHD5Qdi8RC3pvd03eyj6uLurTQTukveoFaB1CElkOBGrijckGJa0Y OeuMNNcoIK4DNXxpOXqM8SwCJFxYY8uqel0NZP0CWxwZEPjVz = 9844) K3SQRyvCUkMQEivTznGTqib048ZSI8IjLuJR7rD7Ikv7B6iV0cvHEbEXSxxXIaArZaCNEwby5vlQKbBQ wtt3CdETT0tzR5kERplCEnFEXdDR96Hbfih4XbQivsABO4FGVvyhWjk5Uaw2ibAxYddnHvQ1ekO3XhGI JxFFHsIEDfZuFrziFph8Trv2RtuPCupCl7p7zmGTJnMGNonUi tk0hkBQL0UGOcM7S3xAMwl3ugQOfpLNWerJY7hiK3BNOzwMXrK5SmoV7mPXQuRI8qzfu4o9qyJHQ2ADd rWDDgWjX3juH3HKIiyGYlIUCvnSsyZYhie308JSB0CbPlQRNax0QeV9XpyBqhM50siAcfA09oXZYdwJm bkS6dhGryfD3cAfGvXpKuHCedtFlbbZHlkqiqGBxwiqM2CPpj gecxSTChWAynS8tvHtPhROUlyRjnQAglp3RzYOGtJIAlQhzyiqK1YIFTl61nQTTjs1YiRKUmvJ0beFKa QItejjEfnRL0WHyizpNkSpGxadQkRCQhgJ4zNETfUZ8sGHJtjwFypd8isyEzGXJeHJCtA3BlpscjrVpa deYyBKVzhy1htuTgMGI2RMRKRJ3TOVGvRGCve73xHICjiIbfr B3xsSZnczZvDUQaw2TjlQ2smLZRKULbV5cgHX5oRFrfp3FxiYHiaQSbkKC2VUUjj4JeEfKuvgEvvUHzg JOoK1TroHsyL8ctGRKoRCHparKczZXmw2KfUDEdjTR9sDWdJE3SQoHMg29aWWCrZNCKblTmZYIotGnbw SL7pqO8dL2cNzTKOyHwyGBbgMKpQoudOKUgx976xw1vwwW0AD PjNASlohssb0GdWFZiBYBcjL42AFHlMUNfkm4qpduzcHGqxbSyU3Hksoz0lV7cEXIlCLdoZXSrUAIrGu VnyQYtNoSaSnNuuJjhuYelARuhLnZdTWPfRXadK1hvAiRuAgNjCpovPDO5 [facility] (AUTOMATED)2023-04-24 14:46:36 Test Item Value Reference Range Interpretation Comments POCT GLU (test code = 0636973576) 266 mg/dL 70-110 H Lab Interpretation (test code = Abnormal 91015-4) [facility]24 14:46:36 Test Item Value Reference Range Interpretation Comments POCT GLU (test code = [id number]) 266 mg/dL 70-110 H Lab Interpretation (test code = Abnormal 42157-2) [facility]
[2023-05-30 14:13] LABS: Absolute Lymphocytes (CBC) 1.2 K/uL (0.7-4.9); Hematocrit 40.5 % (36.0-45.0); Lymphocytes % 14.4 % (15.3-44.8); MCV 92.3 fL (80-100); MPV 9.1 fL (7.6-11.3); RBC Red Blood Cell Count 4.39 M/uL (3.86-4.86)
[2023-05-30 14:16] LABS: Protime INR 1.04
[2023-05-30 14:36] LABS: Bilirubin Total 0.7 mg/dL (0.2-1.0); Magnesium 1.3 mg/dL (1.6-2.4); Potassium 4.3 mEq/L (3.5-5.1); Protein, Total 8.1 g/dL (6.4-8.2)
--- NOTE | 2023-05-30 15:09 | RAD REPORT ---
EXAM DESCRIPTION: CT - Chest For Pe Angio - 05/30/2023 2:49 pm CLINICAL HISTORY: Chest pain COMPARISON: April 2023 TECHNIQUE: Dynamically enhanced axial 3 mm thick images of the chest were obtained during administra tion of 70 mL Isovue 370 IV contrast. Coronal and oblique reconstruction images were generated and re viewed. Exam utilizes a protocol for optimal evaluation of pulmonary arterial tree. Maximum intensity projections 3D imaging was utilized All CT scans are performed using dose optimization technique as appropriate and may include automated exposure control or mA/KV adjustment according to patient size. FINDINGS: A pulmonary embolus is not seen. Ascending thoracic aorta 4.2 centimeters A pleural effusion is not seen. A pericardial effusion is not seen. A lung consolidation is not present. Left breast skin thickening with increased density throughout the left breast has developed since the prior exam IMPRESSION: Negative for a pulmonary embolism. Left breast skin thickening with increased density throughout the left breast could be related to pre vious instrumentation/surgery or infection. Development of neoplasm in such an acute timeframe is cleo btful. This all should be correlated clinically
--- NOTE | 2023-05-30 15:15 | RAD REPORT ---
EXAM DESCRIPTION: CT - Abdomen Pelvis W Contrast - 05/30/2023 2:49 pm CLINICAL HISTORY: Abdominal pain COMPARISON: none. TECHNIQUE: Computed axial tomography of the abdomen pelvis was obtained. 100 cc Isovue-300 was admin istered intravenously. Oral contrast was not requested which limits evaluation of bowel and appendix All CT scans are performed using dose optimization technique as appropriate and may include automated exposure control or mA/KV adjustment according to patient size. FINDINGS: Mild fatty liver The spleen, pancreas, adrenals and kidneys are unremarkable The wall of the mid to distal transverse colon, descending colon and sigmoid colon appears mildly to moderately thickened. Mild stranding within adjacent fat. Hysterectomy. No adnexal mass Gallbladder wall calcification IMPRESSION: [id number] left colitis
--- NOTE | 2023-05-30 15:16 | RAD REPORT ---
EXAM DESCRIPTION: Suni Single View05/30/2023 2:28 pm CLINICAL HISTORY: Chest pain COMPARISON: March 2023 FINDINGS: The lungs appear clear of acute infiltrate. The heart is enlarged IMPRESSION: No acute abnormalities displayed
--- NOTE | 2023-05-30 15:46 | EDPHYS ---
Physician Documentation [facility] Name: Bridgett Gotti Age: 73 yrs Sex: Female : 1950 Arrival Date: 05/30/2023 Time: 13:36 Bed 3 Private MD: Dudley Valero E ED Physician Gabe Waggoner HPI: 05/30 15:15 This 73 yrs old Female presents to ER via Ambulatory with complaints of Diarrhea, kb Headache, Breathing Difficulty. 15:15 The patient presents to the emergency department with diarrhea. Onset: The kb symptoms/episode began/occurred today. Possible causes: unknown. The symptoms are aggravated by nothing. The symptoms are alleviated by nothing. Associated signs and symptoms: Pertinent positives: diarrhea, Pertinent negatives: fever. Severity of symptoms: At their worst the symptoms were mild moderate in the emergency department the symptoms are unchanged. The patient has not experienced similar symptoms in the past. The patient has not recently seen a physician. Pt reports left lower chest pain that is worse with movement and inspiration for a few days. Reports diarrhea started at 0300 this morning. Historical: - Allergies: 13:46 Bactrim; ld1 13:46 Sulfa (Sulfonamide Antibiotics); ld1 - Home Meds: 13:46 clopidogrel 75 mg Oral tablet 1 tab daily [Active]; aspirin 81 mg Oral tablet, delayed ld1 release (enteric coated) 1 tab daily [Active]; amlodipine 10 mg tablet [Active]; atorvastatin 40 mg Oral tablet [Active]; gabapentin 300 mg Oral tab 1 tabs every evening [Active]; duloxetine 60 mg Oral capsule,delayed release (e.c.) [Active]; lisinopril 20 mg Oral tablet [Active]; metoprolol succinate 50 mg Oral tab [Active]; - PMHx: 13:46 Back pain; Atrial fibrillation; Depression; Diabetes - NIDDM; Enteritis; Hypertension; ld1 Lupus; Rheumatoid Arthritis; Sleep Apnea; - PSHx: 13:46 hysterectomy; Breast cancer; ld1 - Immunization history:: Adult Immunizations up to date, Client reports receiving the 2nd dose of the Covid vaccine. - Social history:: Smoking status: Patient/guardian denies using tobacco, the patient reports quitting approximately 21 years ago. ROS: 15:14 Constitutional: Negative for fever, chills, and weight loss. kb 15:14 Cardiovascular: Positive for chest pain, of the left breast. 15:14 Abdomen/GI: Positive for diarrhea, Negative for abdominal pain. 15:14 All other systems are negative. Exam: 14:22 Constitutional: This is a well developed, well nourished patient who is awake, alert, kb and in no acute distress. 14:22 ECG was reviewed by the Attending Physician. 15:14 Constitutional: This is a well developed, well nourished patient who is awake, alert, kb and in no acute distress. Head/Face: Normocephalic, atraumatic. ENT: Moist Mucous membranes Cardiovascular: Regular rate and rhythm with a normal S1 and S2. No gallops, murmurs, or rubs. No pulse deficits. Respiratory: Respirations even and unlabored. No increased work of breathing. Talking in full sentences Skin: Warm, dry with normal turgor. Normal color. MS/ Extremity: Pulses equal, no cyanosis. Neurovascular intact. Full, normal range of motion. Neuro: Awake and alert, GCS 15, oriented to person, place, time, and situation. Moves all extremities. Normal gait. 15:14 Chest/axilla: Inspection: post surgical incision to left breast without erythema, swelling, warmth; no cellulitis, Palpation: tenderness, that is moderate, of the left lower chest. 15:14 Abdomen/GI: Inspection: abdomen appears normal, Bowel sounds: normal, Palpation: soft, in all quadrants, moderate abdominal tenderness, in the left upper quadrant and left lower quadrant. Vital Signs: 13:45 Resp 18; Pulse Ox 100% on R/A; Weight 86.18 kg; Height 5 ft. 1 in. ; Pain 9/10; ld1 13:49 BP 193 / 113; Pulse 113; Resp 20; Temp 98.3(O); ld1 15:40 BP 178 / 83; Pulse 86; Resp 16; Pulse Ox 100% on R/A; iw 16:20 BP 152 / 94; Pulse 86; Resp 16; Pulse Ox 99% on R/A; Pain 10/10; nj1 13:45 Body Mass Index 35.90 (86.18 kg, 154.94 cm) ld1 13:45 Pain Scale: Adult ld1 16:20 Pain Scale: Adult nj1 MDM: 13:43 Patient medically screened. kb 15:16 Differential diagnosis: Nonspecific abd pain, gastritis, pancreatitis, dissection, PE, kb VA, pneumonia. Data reviewed: vital signs, nurses notes. 15:42 Counseling: I had a detailed discussion with the patient and/or guardian regarding: the kb historical points, exam findings, and any diagnostic results supporting the discharge/admit diagnosis, lab results, radiology results, the need for outpatient follow up, a family practitioner, to return to the emergency department if symptoms worsen or persist or if there are any questions or concerns that arise at home. 05/30 13:48 Order name: CBC with Diff; Complete Time: 14:48 kb 05/30 13:48 Order name: D-Dimer; Complete Time: 14:19 kb 05/30 13:48 Order name: Magnesium; Complete Time: 14:48 kb 05/30 13:48 Order name: NT PRO-BNP; Complete Time: 14:48 kb 05/30 13:48 Order name: PT-INR; Complete Time: 14:19 kb 05/30 13:48 Order name: Troponin HS; Complete Time: 14:48 kb 05/30 13:48 Order name: Lipase; Complete Time: 14:48 kb 05/30 13:48 Order name: CMP; Complete Time: 14:48 kb 05/30 13:48 Order name: XRAY Chest (1 view); Complete Time: 15:20 kb 05/30 14:20 Order name: CT Chest For PE Angio; Complete Time: 15:13 kb 05/30 14:20 Order name: CT Abd/Pelvis - IV Contrast Only; Complete Time: 15:20 kb 05/30 13:48 Order name: EKG; Complete Time: 13:48 kb 05/30 13:48 Order name: Cardiac monitoring; Complete Time: 14:03 kb 05/30 13:48 Order name: EKG - Nurse/Tech; Complete Time: 13:55 kb 05/30 13:48 Order name: IV Saline Lock; Complete Time: 14:03 kb 05/30 13:48 Order name: Labs collected and sent; Complete Time: 14:03 kb 05/30 13:48 Order name: O2 Per Protocol; Complete Time: 13:55 kb 05/30 13:48 Order name: O2 Sat Monitoring; Complete Time: 13:55 kb EC:22 Rate is 109 beats/min. Rhythm is regular. QRS [place] is Normal. [place] interval is normal at kb 186 msec. QRS interval is normal at 126 msec. QT interval is normal at 474 msec. Administered Medications: 15:40 Drug: Magnesium Sulfate IVPB 1 grams Route: IVPB; Infused Over: 1 hrs; Site: right iw antecubital; 16:40 Follow up: IV Status: Completed infusion iw 15:50 Drug: NS 0.9% IV 1000 ml Route: IV; Rate: 1000 ml; Site: right antecubital; iw 16:30 Follow up: IV Status: Completed infusion iw 16:20 Drug: Ciprofloxacin PO 500 mg Route: PO; nj1 16:30 Follow up: Response: No adverse reaction iw 16:20 Drug: metroNIDAZOLE PO 500 mg Route: PO; nj1 16:30 Follow up: Response: No adverse reaction iw 16:20 Drug: Ondansetron IVP 4 mg Route: IVP; Site: right antecubital; nj1 16:45 Follow up: Response: No adverse reaction iw 16:22 Drug: morphine IVP or IV 4 mg Route: IVP; Infused Over: 4 mins; Site: right antecubital;nj1 17:00 Follow up: Response: No adverse reaction; Pain is decreased iw Disposition: 18:18 Co-signature as Attending Physician, Gabe LOPEZ was immediately available on-site ms3 in the Emergency Department for consultation in the care of the patient. Disposition Summary: 05/30/23 15:45 Discharge Ordered Location: Home kb Condition: Stable kb Diagnosis - Colitis kb Followup: kb - With: Emergency Department - When: As needed - Reason: Worsening of condition Followup: kb - With: Private Physician - When: 2 - 3 days - Reason: Recheck today's complaints, Continuance of care, Re-evaluation by your physician Discharge Instructions: - Discharge Summary Sheet kb - Pleurisy, [id number] kb - Colitis kb Forms: - Medication Reconciliation Form kb - Thank You Letter kb - Antibiotic Education kb - Prescription Opioid Use kb - [email or web address] kb Prescriptions: - Cipro 500 mg Oral Tablet - take 1 tablet by ORAL route every 12 hours for 10 days; 20 tablet; Refills: 0, kb Product Selection Permitted - Flagyl 500 mg Oral Tablet - take 1 tablet by ORAL route every 8 hours for 10 days; 30 tablet; Refills: 0, kb Product Selection Permitted - Prednisone 20 mg Oral Tablet - take 1 tablet by ORAL route once daily for 5 days; 5 tablet; Refills: 0, kb Product Selection Permitted Signatures: Dispatcher [employer] Tete Amato, ERNESTO-Vivian OROZCO-Audrey Frederick RN RN iw Gabe Waggoner, DO ms3 Mei Waggoner RN RN ld1 Jennifer Hermosillo RN RN nj1 Corrections: (The following items were deleted from the chart) 15:42 15:14 Chest/axilla: Inspection: normal, Palpation: tenderness, that is moderate, of the kb left lower chest, kb
--- NOTE | 2023-05-30 15:46 | ER ---
Nurse's Notes [facility] Name: Bridgett Gotti Age: 73 yrs Sex: Female : 1950 Arrival Date: 05/30/2023 Time: 13:36 Bed 3 Private MD: Dudley Valero E Diagnosis: Colitis Presentation: 05/30 13:45 Chief complaint: Patient states: Pain to left chest - radiates to back. Worse with ld1 breathing. Coronavirus screen: At this time, the client does not indicate any symptoms associated with coronavirus-19. Ebola Screen: No symptoms or risks identified at this time. Initial Sepsis Screen: Does the patient meet any 2 criteria? No. Patient's initial sepsis screen is negative. Does the patient have a suspected source of infection? No. Patient's initial sepsis screen is negative. Risk Assessment: Do you want to hurt yourself or someone else? Patient reports no desire to harm self or others. Onset of symptoms was May 30, 2023. 13:45 Method Of Arrival: Ambulatory ld1 13:45 Acuity: LASHONDA 3 ld1 Triage Assessment: 13:46 General: Appears in no apparent distress. uncomfortable, Behavior is calm, cooperative, ld1 appropriate for age. Pain: Complains of pain in abdomen Pain radiates to back Pain currently is 9 out of 10 on a pain scale. Quality of pain is described as throbbing, Pain began suddenly. EENT: No signs and/or symptoms were reported regarding the EENT system. Neuro: Level of Consciousness is awake, alert, obeys commands, Oriented to person, place, time, situation. Cardiovascular: Capillary refill < 3 seconds Patient's skin is warm and dry. Respiratory: Airway is patent Respiratory effort is even, unlabored. GI: Abdomen is round non-distended, Reports upper abdominal pain. : No signs and/or symptoms were reported regarding the genitourinary system. Derm: No signs and/or symptoms reported regarding the dermatologic system. Musculoskeletal: No signs and/or symptoms reported regarding the musculoskeletal system. Historical: - Allergies: 13:46 Bactrim; ld1 13:46 Sulfa (Sulfonamide Antibiotics); ld1 - Home Meds: 13:46 clopidogrel 75 mg Oral tablet 1 tab daily [Active]; aspirin 81 mg Oral tablet, delayed ld1 release (enteric coated) 1 tab daily [Active]; amlodipine 10 mg tablet [Active]; atorvastatin 40 mg Oral tablet [Active]; gabapentin 300 mg Oral tab 1 tabs every evening [Active]; duloxetine 60 mg Oral capsule,delayed release (e.c.) [Active]; lisinopril 20 mg Oral tablet [Active]; metoprolol succinate 50 mg Oral tab [Active]; - PMHx: 13:46 Back pain; Atrial fibrillation; Depression; Diabetes - NIDDM; Enteritis; Hypertension; ld1 Lupus; Rheumatoid Arthritis; Sleep Apnea; - PSHx: 13:46 hysterectomy; Breast cancer; ld1 - Immunization history:: Adult Immunizations up to date, Client reports receiving the 2nd dose of the Covid vaccine. - Social history:: Smoking status: Patient/guardian denies using tobacco, the patient reports quitting approximately 21 years ago. Screenin:54 [facility] ED Fall Risk Assessment (Adult) History of falling in the last 3 months, iw including since admission. Abuse screen: Denies threats or abuse. Denies injuries from another. Nutritional screening: No deficits noted. Tuberculosis screening: No symptoms or risk factors identified. Assessment: 15:40 General: Appears in no apparent distress. Pain: Complains of pain in left upper iw quadrant. Neuro: Level of Consciousness is awake, alert, obeys commands, Oriented to person, place, time, situation, Moves all extremities. Full function. Cardiovascular: Patient's skin is warm and dry. Respiratory: Reports shortness of breath pain with respiration Respiratory effort is even, unlabored, Respiratory pattern is regular. Derm: Skin is normal. Musculoskeletal: Range of motion: intact in all extremities. 16:54 Reassessment: Patient appears in no apparent distress at this time. Patient and/or iw family updated on plan of care and expected duration. Pain level reassessed. Patient is alert, oriented x 3, equal unlabored respirations, skin warm/dry/pink. Patient states feeling better. Patient states symptoms have improved. Vital Signs: 13:45 Resp 18; Pulse Ox 100% on R/A; Weight 86.18 kg; Height 5 ft. 1 in. ; Pain 9/10; ld1 13:49 BP 193 / 113; Pulse 113; Resp 20; Temp 98.3(O); ld1 15:40 BP 178 / 83; Pulse 86; Resp 16; Pulse Ox 100% on R/A; iw 16:20 BP 152 / 94; Pulse 86; Resp 16; Pulse Ox 99% on R/A; Pain 10/10; nj1 13:45 Body Mass Index 35.90 (86.18 kg, 154.94 cm) ld1 13:45 Pain Scale: Adult ld1 16:20 Pain Scale: Adult nj1 ED Course: 13:38 Patient arrived in ED. rg4 13:39 Dudley Valero MD is Private Physician. rg4 13:43 [facility]C [facility] kb 13:43 Gabe Waggoner DO is Attending Physician. kb 13:46 Triage completed. ld1 13:46 Arm band placed on right wrist. ld1 14:03 Inserted saline lock: 20 gauge in right antecubital area, using aseptic technique. ld1 Blood collected. 14:05 Aristeo Arreola, RN is Primary Nurse. bp 14:29 XRAY Chest (1 view) In Process Unspecified. EDMS 14:50 CT Chest For PE Angio In Process Unspecified. EDMS 14:50 CT Abd/Pelvis - IV Contrast Only In Process Unspecified. EDMS 15:40 Primary Nurse role handed off by Aristeo Arreola, RN iw 15:40 Audrey Hernandez, RN is Primary Nurse. iw 16:54 Patient has correct armband on for positive identification. iw 16:55 No provider procedures requiring assistance completed. IV discontinued, intact, iw bleeding controlled, No redness/swelling at site. Pressure dressing applied. Administered Medications: 15:40 Drug: Magnesium Sulfate IVPB 1 grams Route: IVPB; Infused Over: 1 hrs; Site: right iw antecubital; 16:40 Follow up: IV Status: Completed infusion iw 15:50 Drug: NS 0.9% IV 1000 ml Route: IV; Rate: 1000 ml; Site: right antecubital; iw 16:30 Follow up: IV Status: Completed infusion iw 16:20 Drug: Ciprofloxacin PO 500 mg Route: PO; nj1 16:30 Follow up: Response: No adverse reaction iw 16:20 Drug: metroNIDAZOLE PO 500 mg Route: PO; nj1 16:30 Follow up: Response: No adverse reaction iw 16:20 Drug: Ondansetron IVP 4 mg Route: IVP; Site: right antecubital; nj1 16:45 Follow up: Response: No adverse reaction iw 16:22 Drug: morphine IVP or IV 4 mg Route: IVP; Infused Over: 4 mins; Site: right antecubital;nj1 17:00 Follow up: Response: No adverse reaction; Pain is decreased iw Medication: 16:55 VIS not applicable for this client. iw Outcome: 15:45 Discharge ordered by . kb 16:55 Discharged to home via wheelchair, with family. iw 16:55 Condition: good 16:55 Discharge instructions given to patient, Instructed on discharge instructions, follow up and referral plans. medication usage, Demonstrated understanding of instructions, follow-up care, medications, Prescriptions given X 3. 16:55 Patient left the ED. iw Signatures: Dispatcher [employer] EDMS Tete Oden, LACE SEWER-C LACE SEWER-Ckb Audrey Hernandez, RN RN iw Maya Vincent rg4 Aristeo Arreola RN RN bp Mei Waggoner RN RN ld1 Jennifer Hermosillo RN RN nj1
[2023-05-30] MEDS ORDERED: NA CHLORIDE 0.9% 1,000 ML ONE (15:51)
[2023-05-30] MEDS ORDERED: MAGNESIUM SULFATE 1 gm IVPB 1 GM/100 ML BAG IV ONE (15:51)
[2023-05-30] MEDS ORDERED: CIPROFLOXACIN HCL 500 MG TAB ONE (16:23)
[2023-05-30] MEDS ORDERED: metroNIDAZOLE 500 MG TABLET ONE (16:23)
[2023-05-30] MEDS ORDERED: MORPHINE 4 MG/ML SYR ONE (16:24)
[2023-05-30] MEDS ORDERED: ONDANSETRON 4 MG/2 ML VIAL ONE (16:24)
[2023-05-30 17:38] VITALS: TEMP 98.3
[2023-05-30 17:41] VITALS: BP 152/94; O2SAT 99
--- NOTE | 2023-05-31 12:15 | EKG ---
Test Date: 2023-05-30 Test Time: 13:53:41 Hospital Director: Octavia RAMESH MEASUREMENT RESULTS: Intervals: Rate: 109 HI: 186 QRSD: 126 QT: 352 QTc: 474 [place]: P: 56 HI: 186 QRS: -75 T: 80 INTERPRETIVE STATEMENTS: Sinus tachycardia Right bundle branch block Left anterior fascicular block Bifascicular block Left ventricular hypertrophy with repolarization abnormality Abnormal ECG Compared to ECG 04/09/2023 11:48:31 Right bundle-branch block now present Left anterior fascicular block now present Bifascicular block now present Early repolarization now present First degree AV block no longer present Left-axis deviation no longer present Myocardial infarct finding no longer present Electronically Signed On 05-31-23 12:13:28 CDT by Giorgio Whitt
== END 2023-05-30 16:55 | disposition home or self-care (01) ==
LOC: ER 13:36
DX: K52.9 Noninfective gastroenteritis and colitis, unspecified (principal); R07.9 Chest pain, unspecified; I10 Essential (primary) hypertension; Z88.1 Allergy status to other antibiotic agents; Z88.2 Allergy status to sulfonamides; Z79.82 Long term (current) use of aspirin; Z85.3 Personal history of malignant neoplasm of breast
CPT/HCPCS: 96365; 93005; 85025; 36415; 83735; 85610; 85379; 84484; 83690; 80053; 83880; 71275; 74177; 71045; 96375; 99284; Q9967; J3475; J2405; J7030

== ENCOUNTER → 2024-02-10 | Emergency (ER) | payer OTHER ==
[~2024-02-10] MED LIST: AMLODIPINE 10 MG TAB ONE; CEFEPIME 1 GM/VIAL ONE; METOPROLOL TAR 50 MG TAB ONE; MORPHINE 4 MG/ML SYR ONE; NA CHLORIDE 0.9% 1,000 ML ONE; NA CHLORIDE 0.9% 250 ML ONE; ONDANSETRON 4 MG/2 ML VIAL ONE; VANCOMYCIN 1 GM/VIAL ONE; lisinopriL 10 MG TAB ONE
--- OUTSIDE RECORDS SUMMARY | 2024-02-10 14:56 | XMS REPORT | Clinical Summary ---
Author Name Unknown Organization [facility] [place] Address [address] [place] [address] Care Team Providers Care Revenue Cycle Consultant Name Role Phone Herbert Kyle OPAL Unavailable [phone] Jessy Munroe MD Unavailable Andrea Martinez MD Primary Care Provider Susanna Hayes MD Unavailable [phone] Allergies Active Allergy Reactions Criticality Noted Date Comments Sulfa (Sulfonamide Antibiotics) Hives,Rash High 11/26 Medications Medication Sig Dispensed Refills Start Date End Date Status acetaminophen (TYLENOL) 500 mg tablet Take 1 tablet (500 mg) by mouth every 6 (six) hours as needed. 0 Active amLODIPine (NORVASC) 10 mg tablet Take 1 tablet (10 mg) by mouth daily. 0 10/17/2019 Active aspirin 81 mg cap Take 1 tablet by mouth daily. 0 Active atorvastatin (LIPITOR) 40 mg tablet Take 1 tablet (40 mg) by mouth daily. 0 Active clonazePAM (KlonoPIN) 1 mg tablet Take 1 tablet (1 mg) by mouth 2 (two) times a day as needed. 0 10/17/2019 Active cloNIDine HCl (CATAPRES) 0.1 mg tablet Take 1 tablet (0.1 mg) by mouth as needed. 0 10/17/2019 Active clopidogrel (PLAVIX) 75 mg tablet Take 1 tablet (75 mg) by mouth daily. 0 11/27/2019 Active DULoxetine (CYMBALTA) 60 mg capsule Take 1 capsule (60 mg) by mouth daily. 0 02/22/2023 Active gabapentin (NEURONTIN) 300 mg capsule Take 1 capsule (300 mg) by mouth at bedtime. Temporarily not taking 0 Active ZestriL 20 mg tablet Take 1 tablet (20 mg) by mouth twice daily. 0 10/19/2019 Active melatonin 10 mg cap Take 10 mg by mouth at bedtime. 0 10/17/2019 Active metoprolol succinate (TOPROL XL) 50 mg 24 hr tablet Take 1 tablet (50 mg) by mouth daily. 0 Active predniSONE (DELTASONE) 20 mg tablet Take 1 tablet (20 mg) by mouth daily. 0 05/30/2023 Active traMADol (ULTRAM) 50 mg tablet Take 1 tablet (50 mg) by mouth every 8 (eight) hours as needed. 0 04/24/2023 Active valACYclovir (VALTREX) 500 mg tablet Take 1 tablet (500 mg) by mouth daily. 0 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; Left> 04/18/2023 Cancer Staging:Clinical stage from 03/21/2023:Stage IB(cT2, cN0(f), cM0, G2, ER+, NE+, HER2-) - Unsigned Pathologic:Stage IA(pT1a, pN0, cM0, G2, ER+, NE+, HER2-) - Signed by Andrea Martinez MD on 06/19/2023 Overview: Added automatically from request for surgery [id number] Systemic lupus erythematosus 12/08/2015 Hypertensive disorder 12/08/2015 Emphysema 12/08/2015 Encounters Date Type Department Care Team Description 07/10/2023 Orders Only MD [facility] [place] - Radiation Oncology [address] [address] Valeria Olivera PA Infiltrating duct carcinoma, NOS of lower-inner quadrant of breast <Female; Left> (Primary Dx) 07/06/2023 Documentation MD [facility] [place] - Radiation Oncology [address] [address] Susanna Hayes MD 07/06/2023 Travel 07/05/2023 10:30 AM CDT Clinical Support MD [facility] [place] - Radiation Oncology [address] [place] [phone] Andrea Martinez MD Lawrence, Holly D, RN 07/05/2023 Travel 07/04/2023 Travel 07/03/2023 Travel 07/02/2023 11:15 AM CDT Clinical Support MD [facility] [place] - Radiation Oncology [address] [place] [id number] Mei Simpson MD 07/02/2023 Documentation [facility] [address] [place] [address] [place] [address] Mei Simpson MD 07/02/2023 Travel 06/29/2023 Documentation MD [facility] [place] - Radiation Oncology [address] [place] [address] Susanna Hayes MD 06/25/2023 6:15 AM CDT - 06/25/2023 11:59 PM CDT Hospital Encounter [facility] [address] [place] [address] [place] [address] Andrea Martinez MD Discharge Disposition: Home 06/22/2023 11:00 AM CDT Consult MD [facility] [place] - Radiation Oncology [address] [place] [id number] Susanna Hayes MD Infiltrating duct carcinoma, NOS of lower-inner quadrant of breast <Female; Left> (Primary Dx) 06/22/2023 Documentation MD [facility] [place] - Radiation Oncology [address] [place] [address] Susanna Hayes MD 06/22/2023 Documentation MD [facility] [place] - Radiation Oncology [address] [place] [id number] Susanna Hayes MD 06/22/2023 Orders Only MD [facility] [place] - Radiation Oncology [address] [address] Susanna Hayes MD Infiltrating duct carcinoma, NOS of lower-inner quadrant of breast <Female; Left> (Primary Dx) 06/22/2023 Travel 06/19/2023 11:40 AM CDT Office Visit MD [facility] [place] - Breast Medical Oncology [address] [place] [address] Andrea Martinez MD Malignant neoplasm of lower-inner quadrant of left female breast (Primary Dx) 06/19/2023 11:00 AM CDT NPR [facility] PATIENT ACCESS Andrea Martinez MD 06/19/2023 Travel 05/14/2023 Lab Requisition [facility] Rey Hugo MD Qiu, Suimin, MD Discharge Disposition: Home 05/08/2023 8:15 PM CDT Ancillary Procedure [facility] [address] [place] [address] Andrea Martinez MD Cancer 05/08/2023 8:10 PM CDT Ancillary Procedure [facility] [address] [place] [address] Andrea Martinez MD Cancer 05/08/2023 8:05 PM CDT Ancillary Procedure [facility] [address] [place] [address] Andrea Martinez MD Cancer 05/08/2023 8:00 PM CDT Ancillary Procedure [facility] [address] [place] [address] Andrea Martinez MD Cancer 04/24/2023 12:05 AM CDT Ancillary Procedure [facility] [address] [place] [address] Andrea Martinez MD Cancer 04/24/2023 Ancillary Procedure [facility] [address] [place] [address] Andrea Martinez MD Cancer after 02/10/2023 Surgical History Surgery Date Site/Laterality Comments HYSTERECTOMY 11/26/1992 - 11/25/1993 SKIN GRAFT 11/26/2018 - 11/25/2019 BREAST LUMPECTOMY 04/24/2023 Left TONSILLECTOMY 11/26/1969 - 11/25/1970 MULTIPLE TOOTH EXTRACTIONS Medical History Medical History Date Comments Essential (primary) hypertension 1989 Type 2 diabetes mellitus without complication 19 90 Hearing loss 1989 Rheumatoid arthritis 1989 Systemic lupus erythematosus with organ or syste m involvement 1989 Emphysema Family History Medical History Relation Name Comments -Unknown cancer Brother Lung cancer Father Ovarian cancer Mother Relation Name Status Comments Brother Father Mother Social History Tobacco Use Types Packs/Day Years Used Date Smoking Tobacco: Former Cigarettes 4 30 Q uit: 1998 Smokeless Tobacco: Never Tobacco Cessation:Counseling Given: Not Answered Alcohol Use Standard Drinks/Week Comments Not Currently 0 (1 standard drink = 0.6 oz pur e alcohol) Sex and Gender Information Value Date Recorded Sex Assigned at Not on file Gender Identity Not on file Sexual Orientation Not on file Job Start Date Occupation Industry Not on file Not on file Not on file Obstetrics History Para Term AB IAB SAB Ectopic Multiple Livin g Live Births 3 3 3 2 3 Date Outcome GA Total Labor Labor/2nd/3rd Weight Sex Delivery Anes PTL Jo A1 A5 Name Cl in Term Term Term Comments Menarche: 16 LMP: Hysterectomy Last PAP: Unknown Periods: Hysterectomy Parity: 18 HRT: No OCP: Yes, for 3 months. Menopause:Natural or surgical Fertility Tx: No Breastfeed: No Last Filed Vital Signs Vital Sign Reading Time Taken Comments Blood Pressure 172/89 06/22/2023 11:00 AM CDT Pulse 70 06/22/2023 11:00 AM CDT Temperature 36.8 C (98.2 F) 06/22/2023 11:00 AM C DT Respiratory Rate 20 06/22/2023 11:00 AM CDT Oxygen Saturation 96% 06/22/2023 11:00 AM CDT Inhaled Oxygen Concentration - - Weight 88.7 kg (195 lb 8.8 oz) 06/22/2023 11:00 AM CDT Height 154 cm (5' 0.63") 06/19/2023 11:39 AM CDT Body Mass Index 37.4 06/19/2023 11:39 AM CDT Plan of Treatment Health Maintenance Due Date Last Done Comments COVID-19 Vaccine (3 - Pfizer risk series) 04/01/2021 03/04/2021, 02/11/2021 Influenza Vaccine 07/27/2023 10/17/2019 Procedures Procedure Name Priority Date/Time Associated Diagnosis Comments OSI US DUPLEX EXTREMITY VEINS UNILAT Routine 04/24/2023 12:10 PM CDT Cancer OSI US DUPLEX EXTREMITY VEINS UNILAT Routine 04/24/2023 12:10 PM CDT Cancer OSI US BREAST BIOPSY Routine 04/04/2023 10:29 AM CDT Cancer OSI MAMMO BILATERAL Routine 04/04/2023 1 0:29 AM CDT Cancer PATHOLOGY OUTSIDE INTERPRETATION Routine 04/04/2023 OSI MAMMO BILATERAL Routine 03/21/2023 1 0:30 AM CDT Cancer OSI US BREAST Routine 03/21/2023 10:30 AM CDT Cancer after 02/10/2023 Results * OSI SPECIMEN RADIOGRAPH (04/24/2023 12:10 PM CDT) Only the most recent of2 resultswithin the time period is included. Narrative [facility] - 05/08/2023 12:10 PM CDT Study acquired at another institution. For comparison only. No MD [facility] originated interpretation requested or available. Andrea Martinez MD IMG OUTSIDE IMAGE OR DERABLES [facility] * OSI Mammo (04/04/2023 10:29 AM CDT) Only the most recent of2 resultswithin the time period is included. Narrative [facility] - 05/10/2023 10:29 AM CDT Study acquired at another institution. For comparison only. No MD [facility] originated interpretation requested or available. Andrea Martinez MD IMG OUTSIDE IMAGE OR DERABLES [facility] * OSI US Breast Biopsy (04/04/2023 10:29 AM CDT) [facility] - 05/10/2023 10:29 AM CDT Study acquired at another institution. For comparison only. No [facility] interpretation requested or available. Andrea Martinez MD IMG OUTSIDE IMAGE OR DERABLES [facility] * Pathology Outside Interpretation (04/04/2023) Materials Received Accession#, Stained, Block, Unstained Collected Received A. [id number], 13 SS, 0 BLOCKS, 0 USS B. [id number], 39 SS, 0 BLOCKS, 0 USS 04/04/2023 04/24/2023 05/14/2023 05/14/2023 05/16/2023 12:38 PM CDT [facility] Diagnosis Outside ([id number], 13 SS, 0 BLOCKS, 0 USS, collected on 04/04/2023): A. Left axillary lymph node, biopsy: Lymph node tissue, no tumor present. B. 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 SOLID PAPILLARY CARCINOMA, INTERMEDIATE GRADE (SEE COMMENT). Outside ([id number], 39 SS, 0 BLOCKS, 0 USS, collected on 04/24/2023): A. Lymph node, left sentinel, excision: One lymph node, no tumor present (per report, 0/1). B. Lymph node, clipped left sentinel, excision: One lymph node with previous biopsy site changes, no tumor present (0/1). C. Breast, left, lumpectomy (slides C1-C7, C9-17, C19-C25, and C28): INVASIVE DUCTAL CARCINOMA, FOCAL, MEASURING 1 MM IN MAXIMUM DIMENSION. (SEE COMMENT) SOLID PAPILLARY CARCINOMA, INTERMEDIATE GRADE, EXTENSIVELY INVOLVING LUMPECTOMY (PRESENT IN 24 OUT OF 29 SUBMITTED SLIDES) (SEE COMMENT). SOLID PAPILLARY CARCINOMA PRESENT AT SUPERIOR MARGIN OF RESECTION, AND LOCATED [...] excision (slide H1): Fibroadipose, no tumor present. 05/16/2023 12:38 PM CDT [facility] Comment [id number]: Per submitted immunohistochemistry on block B2, the solid papillary carcinoma is focally positive for synaptophysin and scattered cells are positive for chromogranin; p63 highlights myoepithelial cells surrounding the nests of solid papillary carcinoma and the absence of myoepithelial cells around the invasive ductal carcinoma. The invasive ductal carcinoma shows synaptophysin positivity in at least one third of the tumor represented in the core biopsy. Biomarker analysis of the invasive carcinoma (slides submitted for review): Estrogen receptor: Positive (>95%, strong intensity). Progesterone receptor: Positive (70%, weak to moderate intensity). HER2 IHC: negative (score 1+). Ki-67: 10%. [id number]: The submitted p63 and myosin immunostains shows absence of staining in the focus of tumor cells ( block C14) in the periductal area which supports the presence of invasive carcinoma. There is another focus with small groups of tumor cells (block C15) with absence of staining for p63 and myosin in the periductal area associated with reactive changes to marker clip. Displaced tumor cells following previous biopsy is favored for this focus. 05/16/2023 12:38 PM CDT [facility] Biomarker Block(s) Tumor: [id number], block B2 05/16/2023 12:38 PM CDT [employer] [facility] Disclaimer "Some tests reported here may have been developed and performance characteristics determined by [facility]. These tests have not been specifically cleared or approved by the U.S. Food and Drug Administration. If applicable, controls were reviewed and showed appropriate reactivity." 05/16/2023 12:38 PM CDT [facility] Tissue specimen (specimen) 04/04/2023 05/14/2023 10:37 AM CDT Tissue specimen (specimen) 04/24/2023 05/14/2023 10:39 AM CDT Effie Peck MD LAB PATHOLOGY ORDERA BLES [facility] [place] [address] [place] [address], [place] * OSI US Breast (03/21/2023 10:30 AM CDT) Narrative [facility] - 05/10/2023 10:30 AM CDT Study acquired at another institution. For comparison only. No MD [facility] originated interpretation requested or available. Andrea Martinez MD IMG OUTSIDE IMAGE OR DERABLES [facility] after 02/10/2023 Care Teams Revenue Cycle Consultant Relationship Specialty Start Date End Date Kyle Godinez PA [address] [place] [address] PCP - External Primary Care Provider Family Practice 04/20/23 Jessy Munroe MD [address] [address] PCP - External Referring Surgical Oncology 04/20/23 Andrea Martinez MD [facility] [place], [place] [id number] PCP - General Breast Medical Oncology 05/08/23 Susanna Hayes MD [facility] [place], [place] [id number] Physician Radiation Oncology 06/22/23
[2024-02-10 16:01] LABS: Absolute Basophils 0.1 K/uL (0-0.5); Absolute Eosinophils 0.1 K/uL (0-0.5); Absolute Lymphocytes (CBC) 1.5 K/uL (0.7-4.9); Absolute Monocytes 0.9 K/uL (0.1-1.3); Absolute Neutrophil 4.4 K/uL (1.8-8.0); Basophils % 1.4 % (0-1.3); Eosinophils % 0.7 % (0-4.4); Hematocrit 42.2 % (36.0-45.0); Hemoglobin 14.4 g/dL (12.0-15.0); Lymphocytes % 21.7 % (15.3-44.8); MCH 32.3 pg (27.0-35.0); MCHC 34.2 g/dL (32.0-36.0); MCV 94.4 fL (80-100); MPV 9.7 fL (7.6-11.3); Monocytes % 13.1 % (3.3-12.3); Neutrophils % 63.1 % (41.7-73.7); Nucleated Red Blood Cells % 0.2 % (0-0); Platelets 219 thou/uL (152-406); RBC Red Blood Cell Count 4.46 M/uL (3.86-4.86); Red Cell Distribution Width 12.4 % (12.1-15.2)
[2024-02-10 16:03] LABS: PTT, Activated Partial Thromb 52.5 SECONDS (24.3-36.9)
[2024-02-10 16:04] LABS: PT Prothrombin Time 12.8 SECONDS (9.5-12.5); Protime INR 1.17
[2024-02-10 16:14] LABS: Albumin 2.8 g/dL (3.4-5.0); Albumin/Globulin Ratio 0.5 (1.1-1.8); Anion Gap 12.9 mEq/L (5.0-15.0); Bilirubin Total 1.2 mg/dL (0.2-1.0); Globulin 5.9 g/dL (2.3-3.5); Potassium 3.9 mEq/L (3.5-5.1); Protein, Total 8.7 g/dL (6.4-8.2)
--- NOTE | 2024-02-10 16:32 | ER ---
Nurse's Notes [facility] Name: Bridgett Gotti Age: 73 yrs Sex: Female : 1950 Arrival Date: 02/10/2024 Time: 14:52 Bed 5 Private MD: Diagnosis: Ischemic left middle toe with cellulitis Presentation: 02/09 15:16 Chief complaint: Left foot and leg redness and pain x 1 week, worse today. Coronavirus hb screen: At this time, the client does not indicate any symptoms associated with coronavirus-19. Ebola Screen: No symptoms or risks identified at this time. Initial Sepsis Screen: Does the patient meet any 2 criteria? RR > 20 per min. HR > 90 bpm. No. Patient's initial sepsis screen is negative. Does the patient have a suspected source of infection? No. Patient's initial sepsis screen is negative. Risk Assessment: Do you want to hurt yourself or someone else? Patient reports no desire to harm self or others. Onset of symptoms was February 10, 2024. 15:16 Method Of Arrival: Wheelchair hb 15:16 Acuity: LASHONDA 2 hb Triage Assessment: 15:17 General: Appears in no apparent distress. uncomfortable, Behavior is calm, cooperative. hb Pain: Pain currently is 10 out of 10 on a pain scale. Neuro: Level of Consciousness is awake, alert, obeys commands, Oriented to person, place, time, situation. Cardiovascular: Patient's skin is warm and dry. Respiratory: Respiratory effort is even, unlabored, Respiratory pattern is regular, symmetrical. Derm: redness noted to left lower leg and foot, left 3rd toe black. Historical: - Allergies: 15:17 Bactrim; hb 15:17 Sulfa (Sulfonamide Antibiotics); hb - PMHx: 15:17 Hypertension; Enteritis; Lupus; Diabetes - NIDDM; Depression; Back pain; Atrial hb fibrillation; Rheumatoid Arthritis; Sleep Apnea; - PSHx: 15:17 Breast cancer; hysterectomy; hb - Immunization history:: Adult Immunizations up to date. - Social history:: Smoking status: Patient reports the use of cigarette tobacco products. Screenin:30 [facility] ED Fall Risk Assessment (Adult) History of falling in the last 3 months, bp including since admission No falls in past 3 months (0 pts) Confusion or Disorientation No (0 pts) Intoxicated or Sedated No (0 pts) Impaired Gait No (0 pts) Mobility Assist Device Used No (0 pt) Altered Elimination No (0 pt) Score/Fall Risk Level 0 - 2 = Low Risk. Abuse screen: Denies threats or abuse. Denies injuries from another. Nutritional screening: No deficits noted. Tuberculosis screening: No symptoms or risk factors identified. Assessment: 15:17 General: SEE TRIAGE NOTE. bp 17:30 Reassessment: TRANSFER INITIATED FOR VASCULAR. bp 18:45 Reassessment: ATTEMPT TO CALL REPORT TO [facility] 1022, DECLINED BY UNIT 2/2 SHIFT bp CHANGE. 19:00 Reassessment: SECOND ATTEMPT TO CALL REPORT TO [facility] 1022. DECLINED BY UNIT 2/2 bp SHIFT CHANGE. Vital Signs: 15:16 BP 237 / 110; Pulse 122; Resp 28; Temp 99.2(O); Pulse Ox 100% on R/A; Weight 88.45 kg; hb Height 5 ft. 2 in. ; Pain 10/10; 17:35 BP 147 / 80; Pulse 77; Resp 16; Pulse Ox 99% ; bp 19:00 BP 124 / 76; Pulse 72; Resp 16; Pulse Ox 98% ; bp 15:16 Body Mass Index 35.67 (88.45 kg, 157.48 cm) hb 15:16 Pain Scale: Adult hb ED Course: 14:58 Patient arrived in ED. im 15:00 [facility] sb[facility] 15:00 Sophia Sevilla MD is Attending Physician. sb4 15:08 Aristeo Arreola, ILAN is Primary Nurse. bp 15:17 Triage completed. hb 15:17 Arm band placed on. hb 15:19 Client placed on continuous cardiac and pulse oximetry monitoring. NIBP monitoring hb applied. Pulse ox on. NIBP on. 15:30 Patient has correct armband on for positive identification. bp 15:44 Inserted saline lock: 22 gauge in right forearm, using aseptic technique. Blood bp collected. 15:44 Blood Culture Adult (2) Sent. bp 15:44 CBC with Diff Sent. bp 15:44 CMP Sent. bp 15:44 Lactate w/ 2H reflex if indic. Sent. bp 15:44 Protime (+inr) Sent. bp 15:44 Ptt, Activated Sent. bp 15:45 EKG done, by ED staff, reviewed by Elma Ramirez PA-C. ds4 16:31 Matthew Madera MD is Hospitalizing Provider. sb4 17:05 called [facility] for transfer-- talked to Jes. ds4 18:04 Dr. Escobar accepted pt to [facility]. ds4 19:06 Ammon with [facility] will take pt for transfer. sp 19:41 No provider procedures requiring assistance completed. Patient transferred, IV remains vc1 in place. Administered Medications: 15:30 Drug: amLODIPine PO 10 mg PO once Route: PO; bp 17:48 Follow up: Response: No adverse reaction bp 15:30 Drug: Metoprolol PO 50 mg PO once Route: PO; bp 17:48 Follow up: Response: No adverse reaction bp 15:30 Drug: Lisinopril PO 10 mg PO once Route: PO; bp 17:48 Follow up: Response: No adverse reaction bp 15:30 Drug: morphine IVP or IV 4 mg IVP once over 4 mins Route: IVP; Infused Over: 4 mins; bp Site: right forearm; 17:48 Follow up: Response: No adverse reaction bp 15:30 Drug: Ondansetron IVP 4 mg IVP once; over 2 minutes Route: IVP; Site: right forearm; bp 17:48 Follow up: Response: No adverse reaction bp 15:30 Drug: NS 0.9% IV 1000 ml IV at 1 bolus Per protocol; 1000 mL bolus Route: IV; Rate: 1 bp bolus; Site: right forearm; 17:48 Follow up: IV Status: Completed infusion; IV Intake: 1000ml bp 17:30 Drug: vancoMYCIN IVPB 1 grams IVPB once over 2 hrs Route: IVPB; Infused Over: 2 hrs; bp Site: right forearm; 19:01 Follow up: IV Status: Completed infusion; IV Intake: 250ml bp 17:30 Drug: Cefepime IVPB 1 grams IVPB at 200 ml/hr once over 30 mins; (mix in NS 100 mL) bp Route: IVPB; Rate: 200 ml/hr; Infused Over: 30 mins; Site: right forearm; 19:02 Follow up: IV Status: Completed infusion; IV Intake: 100ml bp Medication: 19:43 VIS not applicable for this client. vc1 Intake: 17:48 IV: 1000ml; Total: 1000ml. bp 19:01 IV: 250ml; Total: 1250ml. bp 19:02 IV: 100ml; Total: 1350ml. bp Outcome: 16:31 Decision to Hospitalize by Provider. sb4 17:05 ER care complete, transfer ordered by . sb4 19:42 Transferred by ground EMS to [facility], Transfer form completed. vc1 X-rays sent w/ patient. 19:42 Condition: stable 19:42 Instructed on the need for transfer, 19:43 Patient left the ED. vc1 Signatures: Bettye Oropeza Donovan ds4 Kerrie Cortez, RN RN hb Aristeo Arreola RN RN bp Kaylee Lopes RN RN vc1 Elma Ramirez PAKeyona PAKeyona sb4 Elisa Busby Corrections: (The following items were deleted from the chart) 15:17 15:16 BP 237 / 110; Pulse 122bpm; Resp 28bpm; Pulse Ox 100% RA; Temp 99.2F Oral; Pain hb 10/10, Adult; hb
--- NOTE | 2024-02-10 16:32 | EDPHYS ---
Physician Documentation [facility] Name: Bridgett Gotti Age: 73 yrs Sex: Female : 1950 Arrival Date: 02/10/2024 Time: 14:52 Bed 5 Private MD: ED Physician Sophia Sevilla HPI: 02/09 15:20 This 73 yrs old Female presents to ER via Wheelchair with complaints of leg infection. sb4 15:20 Patient with chronic peripheral vascular disease presents with complaints of pain, sb4 swelling, and redness of her left lower leg. She states that this started a few days ago, reports subjective fever. She has been trying to get into see a vascular doctor but has been unable to. She was seen here about 2 week ago and had ultrasounds of her bilateral lower extremities and CT angiograms revealing advanced atherosclerotic changes. Historical: - Allergies: 15:17 Bactrim; hb 15:17 Sulfa (Sulfonamide Antibiotics); hb - PMHx: 15:17 Hypertension; Enteritis; Lupus; Diabetes - NIDDM; Depression; Back pain; Atrial hb fibrillation; Rheumatoid Arthritis; Sleep Apnea; - PSHx: 15:17 Breast cancer; hysterectomy; hb - Immunization history:: Adult Immunizations up to date. - Social history:: Smoking status: Patient reports the use of cigarette tobacco products. ROS: 15:20 Constitutional: Positive for fever, sb4 15:20 Skin: Positive for cellulitis, erythema, swelling, of the left hernandez, 15:20 All other systems are negative, 16:32 Cardiovascular: Negative for chest pain, palpitations, and edema, sb4 Exam: 15:20 Head/Face: Normocephalic, atraumatic. Eyes: Extra-ocular motions intact. Periorbital sb4 areas with no swelling, redness, or edema. ENT: Mucous membranes moist. Abdomen/GI: Soft, non-tender, no distension. 15:20 Constitutional: The patient appears alert, awake, in obvious distress, mildly distressed, 15:20 Cardiovascular: Rate: tachycardic, Rhythm: regular, 15:20 Respiratory: mild respiratory distress is noted, Respirations: normal, Breath sounds: are clear throughout, 15:20 Skin: cellulitis, that is moderate, on the left hernandez, Gangrene noted to distal left third toe with surrounding cellulitis extending down toe and foot. 17:10 Musculoskeletal/extremity: Pulses: are absent in the left dorsalis pedis artery, sb4 Vital Signs: 15:16 BP 237 / 110; Pulse 122; Resp 28; Temp 99.2(O); Pulse Ox 100% on R/A; Weight 88.45 kg; hb Height 5 ft. 2 in. ; Pain 10/10; 17:35 BP 147 / 80; Pulse 77; Resp 16; Pulse Ox 99% ; bp 19:00 BP 124 / 76; Pulse 72; Resp 16; Pulse Ox 98% ; bp 15:16 Body Mass Index 35.67 (88.45 kg, 157.48 cm) hb 15:16 Pain Scale: Adult hb MDM: 15:08 Patient medically screened. sb4 16:30 Data reviewed: vital signs, nurses notes, lab test result(s), EKG, radiologic studies, sb4 and as a result, I will admit patient. Consideration of Admission/Observation Patient was admitted/placed on observation. Care significantly affected by the following chronic conditions: Diabetes, Hypertension. Counseling: I had a detailed discussion with the patient and/or guardian regarding the historical points, exam findings, and any diagnostic results supporting the discharge/admit diagnosis, the presence of at least one elevated blood pressure reading (>120/80) during this emergency department visit, lab results, radiology results, the need for further work-up and treatment in the hospital. 17:21 Management of patient was discussed with the following: Hospitalist: Spoke with [facility] hospitalist and general surgeon who recommend transfer for vascular intervention. 02/09 15:17 Order name: Blood Culture Adult (2) [facility] 02/09 15:17 Order name: CBC with Diff; Complete Time: 16:04 4 02/09 15:17 Order name: CMP; Complete Time: 16:27 4 02/09 15:17 Order name: Lactate w/ 2H reflex if indic.; Complete Time: 16:27 4 02/09 15:17 Order name: Protime (+inr); Complete Time: 16:04 4 02/09 15:17 Order name: Ptt, Activated; Complete Time: 16:04 4 02/09 15:17 Order name: EKG; Complete Time: 15:17 [facility] 02/09 15:17 Order name: Accucheck; Complete Time: 15:45 4 02/09 15:17 Order name: Cardiac monitoring; Complete Time: 15:44 sb4 02/09 15:17 Order name: EKG - Nurse/Tech; Complete Time: 15:44 sb4 02/09 15:17 Order name: IV Saline Lock - Large Bore; Complete Time: 15:45 sb4 02/09 15:17 Order name: Labs collected and sent; Complete Time: 15:45 sb4 02/09 15:17 Order name: O2 Per Protocol; Complete Time: 15:21 sb4 02/09 15:17 Order name: O2 Sat Monitoring; Complete Time: 15:21 sb4 02/09 15:17 Order name: Vital Signs; Complete Time: 15:21 sb4 EC:47 Rate is 104 beats/min. Rhythm is regular, Sinus tachycardia with Left bundle branch sb4 block, Right bundle branch block. MT interval is normal at 182 msec. QRS interval is normal at 138 msec. QT interval is normal at [address] changes noted. Clinical impression: Abnormal EKG without significant change. Interpreted by me. Reviewed by me. Administered Medications: 15:30 Drug: amLODIPine PO 10 mg PO once Route: PO; bp 17:48 Follow up: Response: No adverse reaction bp 15:30 Drug: Metoprolol PO 50 mg PO once Route: PO; bp 17:48 Follow up: Response: No adverse reaction bp 15:30 Drug: Lisinopril PO 10 mg PO once Route: PO; bp 17:48 Follow up: Response: No adverse reaction bp 15:30 Drug: morphine IVP or IV 4 mg IVP once over 4 mins Route: IVP; Infused Over: 4 mins; bp Site: right forearm; 17:48 Follow up: Response: No adverse reaction bp 15:30 Drug: Ondansetron IVP 4 mg IVP once; over 2 minutes Route: IVP; Site: right forearm; bp 17:48 Follow up: Response: No adverse reaction bp 15:30 Drug: NS 0.9% IV 1000 ml IV at 1 bolus Per protocol; 1000 mL bolus Route: IV; Rate: 1 bp bolus; Site: right forearm; 17:48 Follow up: IV Status: Completed infusion; IV Intake: 1000ml bp 17:30 Drug: vancoMYCIN IVPB 1 grams IVPB once over 2 hrs Route: IVPB; Infused Over: 2 hrs; bp Site: right forearm; 19:01 Follow up: IV Status: Completed infusion; IV Intake: 250ml bp 17:30 Drug: Cefepime IVPB 1 grams IVPB at 200 ml/hr once over 30 mins; (mix in NS 100 mL) bp Route: IVPB; Rate: 200 ml/hr; Infused Over: 30 mins; Site: right forearm; 19:02 Follow up: IV Status: Completed infusion; IV Intake: 100ml bp Disposition: 16:33 Co-signature as Attending Physician, Sophia Sevilla MD I agree with the assessment and cp3 plan of care. Disposition Summary: 02/10/24 17:05 Transfer Ordered Notes: Transfer Location: [facility] sb4 Reason: Higher level of care sb4 Condition: Fair(02/10/24 17:05) sb4 Problem: new(02/10/24 17:05) sb4 Symptoms: are unchanged(02/10/24 17:05) sb4 Accepting Physician: Dr. Escobar(02/10/24 19:43) vc1 Diagnosis - Ischemic left middle toe with cellulitis sb4 Forms: - Medication Reconciliation Form sb4 - SBAR form sb4 Signatures: Dispatcher [employer] Sophia Boogie MD MD cp3 Kerrie Cortez RN RN Aristeo Flaherty RN RN Kaylee Edmonds RN RN vc1 Elma Ramirez PA-C PAKeyona sb4 Corrections: (The following items were deleted from the chart) 17:04 16:31 Inpatient Admission sb4 sb4 17:04 16:31 Matthew Madera sb4 sb4 17:04 16:31 Telemetry/MedSurg (Inpatient) sb4 sb4 17:04 16:31 Fair sb4 sb4 17:04 16:31 new sb4 sb4 17:04 16:31 are unchanged sb4 sb4 17:04 16:31 Standard sb4 sb4 17:04 16:31 sb4 sb4 17:04 16:31 Cellulitis of left lower limb sb4 sb4 17:04 16:31 Sepsis, unspecified organism sb4 sb4 17:09 15:20 Respiratory: mild respiratory distress is noted, Respirations: normal, Breath sb4 sounds: are clear throughout, sb4 17:09 15:20 Skin: cellulitis, that is moderate, on the left hernandez, Gangrene noted to distal sb4 left third toe. sb4 17:19 15:20 Patient with chronic peripheral vascular disease presents with complaints of sb4 pain, swelling, and redness of her left lower leg. She states that this started a few days ago, reports subjective fever. She has been trying to get into see a vascular doctor but has been unable to. She was seen here about 1 week ago and had ultrasounds of her bilateral lower extremities and CT angiograms. sb4 17:37 17:10 Cardiovascular: sb4 sb4 18:04 17:05 vascular sb4 sb4 19:43 18:04 Dr. Escobar sb4 vc1
[2024-02-10 20:13] VITALS: BP 124/76; TEMP 99.2; O2SAT 98
--- NOTE | 2024-02-12 14:12 | EKG ---
Test Date: 2024-02-10 Test Time: 14:39:55 Car Scrubber: MISSY MEASUREMENT RESULTS: Intervals: Rate: 104 AR: 182 QRSD: 138 QT: 388 QTc: 510 [place]: P: 58 AR: 182 QRS: -71 T: 84 INTERPRETIVE STATEMENTS: Sinus tachycardia Right bundle branch block Left anterior fascicular block Bifascicular block Left ventricular hypertrophy with repolarization abnormality Abnormal ECG Compared to ECG 01/29/2024 15:21:34 No significant changes Electronically Signed On 02-12-24 14:06:57 CDT by Giorgio Whitt
== END ==
LOC: ER 14:52
DX: L03.032 Cellulitis of left toe (principal); E11.52 Type 2 diabetes mellitus with diabetic peripheral angiopathy with gangrene; I96 Gangrene, not elsewhere classified; Z72.0 Tobacco use; Z88.1 Allergy status to other antibiotic agents; Z88.2 Allergy status to sulfonamides
CPT/HCPCS: 93005; 87040 ×2; 85025; 36415; 85610; 83605; 85730; 80053; J2405; J7050; J7030; J0692; 96361; 96365; 96366; 96368; 96375; 99285

== ENCOUNTER 2024-03-19 10:16 | Inpatient (IN) | payer OTHER ==
--- OUTSIDE RECORDS SUMMARY | 2024-03-19 10:20 | XMS REPORT | Clinical Summary ---
Author Name Unknown Organization [facility] Address [address] [place] [address] Care Team Providers Care Steam Shovel Engineer Name Role Phone Herbert Kyle OPAL Unavailable [phone] Jessy Munroe MD Unavailable [phone] Andrea Martinez MD Primary Care Provider Susanna Hayes MD Unavailable [phone] Allergies Active Allergy Reactions Criticality Noted Date [...] from 03/21/2023:Stage IB(cT2, cN0(f), cM0, G2, ER+, MD+, HER2-) - Unsigned Pathologic:Stage IA(pT1a, pN0, cM0, G2, ER+, MD+, HER2-) - Signed by Andrea Martinez MD on 06/19/2023 Overview: Added automatically from request for surgery [id number] Systemic lupus erythematosus 12/08/2015 Hypertensive disorder 12/08/2015 Emphysema 12/08/2015 Encounters Date Type Department Care Team Description 07/10/2023 Orders Only MD [place] [facility] Radiation Oncology [address] [id number] Valeria Olivera PA Infiltrating duct carcinoma, NOS of lower-inner quadrant of breast <Female; Left> (Primary Dx) 07/06/2023 Documentation MD [place] [facility] [address] [address] Susanna Hayes MD 07/06/2023 Travel 07/05/2023 10:30 AM CDT Clinical Support MD [facility] [place] - Rad[facility] On[facility] [address] [place] [address] Andrea Martinez MD Lawrence, Holly D, RN 07/05/2023 Travel 07/04/2023 Travel 07/03/2023 Travel 07/02/2023 11:15 AM CDT Clinical Support MD [facility] [place] [facility] [address] [place] [address] Mei Simpson MD 07/02/2023 Documentation [facility] [address] [place] [address] [place] [address] Mei Simpson MD 07/02/2023 Travel 06/29/2023 Documentation MD [facility] [place] [facility] [address] [place] [address] Susanna Hayes MD 06/25/2023 6:15 AM CDT - 06/25/2023 11:59 PM CDT Hospital Encounter [facility] [address] [place] [address] [place] [address] Andrea Martinez MD Discharge Disposition: Home 06/22/2023 11:00 AM CDT Consult MD [facility] [place] [facility] [address] [place] [address] Susanna Hayes MD Infiltrating duct carcinoma, NOS of lower-inner quadrant of breast <Female; Left> (Primary Dx) 06/22/2023 Documentation MD [facility] [place] [facility] [address] [place] [address] Susanna Hayes MD 06/22/2023 Documentation MD [facility] [place] [facility] [address] [place] [address] Susanna Hayes MD 06/22/2023 Orders Only MD [place] [facility] [address] [address] Susanna Hayes MD Infiltrating duct carcinoma, NOS of lower-inner quadrant of breast <Female; Left> (Primary Dx) 06/22/2023 Travel 06/19/2023 11:40 AM CDT Office Visit MD [place] [facility] Breast Medical Oncology [address] [place] [address] Andrea Martinez MD Malignant neoplasm of lower-inner quadrant of left female breast (Primary Dx) 06/19/2023 11:00 AM CDT NPR [facility] PATIENT ACCESS Andrea Martinez MD 06/19/2023 Travel 05/14/2023 Lab Requisition [facility] Rey Hugo MD Qiu, Suimin, MD Discharge Disposition: Home 05/08/2023 8:15 PM CDT Ancillary Procedure [facility] [address] [place] [address] Andrea Martinez MD Cancer 05/08/2023 8:10 PM CDT Ancillary Procedure [facility] [address] [place] [address] Andrea Martinez MD Cancer 05/08/2023 8:05 PM CDT Ancillary Procedure [facility] [address] [place] [address] Andrea Martinez MD Cancer 05/08/2023 8:00 PM CDT Ancillary Procedure [facility] [address] [place] [address] Andrea Martinez MD Cancer 04/24/2023 12:05 AM CDT Ancillary Procedure [facility] [address] [place] [address] Andrea Martinez MD Cancer 04/24/2023 Ancillary Procedure [facility] [address] [place] [address] Andrea Martinez MD Cancer after 03/20/2023 Surgical History Surgery Date Site/Laterality Comments HYSTERECTOMY [...] Routine 03/21/2023 10:30 AM CDT Cancer after 03/20/2023 Results * [facility]SI SPECIMEN RADIOGRAPH (04/24/2023 12:10 PM CDT) Only the most recent of2 resultswithin the time period is included. Narrative [facility] - 05/08/2023 12:10 PM CDT Study acquired at another institution. For comparison only. No MD [facility] interpretation requested or available. Andrea Martinez MD IMG OUTSIDE IMAGE OR DERABLES [facility] * OSI Mammo (04/04/2023 10:29 AM CDT) Only the most recent of2 resultswithin the time period is included. Narrative [facility] - 05/10/2023 10:29 AM CDT Study acquired at another institution. For comparison only. No MD White originated interpretation requested or available. Andrea Martinez MD IMG OUTSIDE IMAGE OR DERABLES [facility] * OSI US Breast Biopsy (04/04/2023 10:29 AM CDT) [facility] - 05/10/2023 10:29 AM CDT Study acquired at another institution. For comparison only. No [facility] interpretation requested or available. Andrea Martinez MD IMG OUTSIDE IMAGE OR DERABLES [facility] * Pathology Outside Interpretation (04/04/2023) Materials Received Accession#, Stained, Block, Unstained Collected Received A. [id number], 13 SS, 0 BLOCKS, 0 USS B. [id number], 39 SS, 0 BLOCKS, 0 USS 04/04/2023 04/24/2023 05/14/2023 05/14/2023 05/16/2023 12:38 PM CDT [facility] Diagnosis Outside ([id number], 13 SS, 0 BLOCKS, 0 USS, collected on 04/04/2023): A. Left axillary lymph node, biopsy: Lymph node tissue, no tumor present. B. 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 SOLID PAPILLARY CARCINOMA, INTERMEDIATE GRADE (SEE COMMENT). Outside ([id number], 39 SS, 0 BLOCKS, 0 USS, collected [...] no tumor present. 05/16/2023 12:38 PM CDT [facility] Comment [id number]: Per submitted immunohistochemistry on block B2, the [...] HER2 IHC: negative (score 1+). Ki-67: 10%. [id number]: The submitted p63 and myosin immunostains shows [...] for this focus. 05/16/2023 12:38 PM CDT [facility] Biomarker Block(s) Tumor: [id number], block B2 05/16/2023 12:38 PM CDT [facility] [employer] [facility] Disclaimer "Some tests reported here may have been developed and performance characteristics determined by [facility] Pathology and Laboratory Medicine. These tests have not been specifically cleared or approved by the U.S. Food and Drug Administration. If applicable, controls were reviewed and showed appropriate reactivity." 05/16/2023 12:38 PM CDT [facility] Tissue specimen (specimen) 04/04/2023 05/14/2023 10:37 AM CDT Tissue specimen (specimen) 04/24/2023 05/14/2023 10:39 AM CDT Effie Peck MD LAB PATHOLOGY ORDERA BLES [facility] [address] [place] [address], [place] * OSI US Breast (03/21/2023 10:30 AM CDT) Narrative [facility] - 05/10/2023 10:30 AM CDT Study acquired at another institution. For comparison only. No MD [facility] originated interpretation requested or available. Andrea Martinez MD IMG OUTSIDE IMAGE OR DERABLES [facility] after 03/20/2023 Care Teams Steam Shovel Engineer Relationship Specialty Start Date End Date Kyle Godinez PA [address] [place] [address] PCP - External Primary Care Provider Family Practice 04/20/23 Jessy Munroe MD [address] [address] PCP - External Referring Surgical Oncology 04/20/23 Andrea Martinez MD [facility] [place], [place] [phone] PCP - General Breast Medical Oncology 05/08/23 Susanna Hayes MD [facility] [place], [place] [phone] Physician Radiation Oncology 06/22/23
[2024-03-19] MEDS ORDERED: MORPHINE 4 MG/ML SYR ONE (11:09)
[2024-03-19] MEDS ORDERED: ONDANSETRON 4 MG/2 ML VIAL ONE (11:09)
[2024-03-19] MEDS ORDERED: VANCOMYCIN 1 GM/VIAL ONE (11:09)
[2024-03-19] MEDS ORDERED: NA CHLORIDE 0.9% 250 ML ONE (11:10)
[2024-03-19] MEDS ORDERED: NA CHLORIDE 0.9% 2,000 ML ONE (11:10)
[2024-03-19 11:21] LABS: Absolute Eosinophils 0.2 K/uL (0-0.5); Absolute Lymphocytes (CBC) 1.1 K/uL (0.7-4.9); Absolute Monocytes 0.7 K/uL (0.1-1.3); Absolute Neutrophil 3.7 K/uL (1.8-8.0); Basophils % 0.8 % (0-1.3); Eosinophils % 3.5 % (0-4.4); Hematocrit 34.4 % (36.0-45.0); Hemoglobin 11.8 g/dL (12.0-15.0); Lymphocytes % 19.7 % (15.3-44.8); MCH 30.7 pg (27.0-35.0); MCHC 34.2 g/dL (32.0-36.0); MCV 89.8 fL (80-100); MPV 9.2 fL (7.6-11.3); Monocytes % 12.3 % (3.3-12.3); Neutrophils % 63.7 % (41.7-73.7); Platelets 227 thou/uL (152-406); RBC Red Blood Cell Count 3.84 M/uL (3.86-4.86); Red Cell Distribution Width 13.4 % (12.1-15.2)
[2024-03-19 11:40] LABS: PT Prothrombin Time 12.9 SECONDS (9.5-12.5); Protime INR 1.18
[2024-03-19 11:42] LABS: Albumin 2.8 g/dL (3.4-5.0); Albumin/Globulin Ratio 0.5 (1.1-1.8); Anion Gap 12.7 mEq/L (5.0-15.0); Bilirubin Total 1.1 mg/dL (0.2-1.0); Globulin 5.7 g/dL (2.3-3.5); Potassium 3.7 mEq/L (3.5-5.1); Protein, Total 8.5 g/dL (6.4-8.2)
--- NOTE | 2024-03-19 12:16 | EDPHYS ---
Physician Documentation [facility] Name: Bridgett Gotti Age: 73 yrs Sex: Female : 1950 Arrival Date: 03/19/2024 Time: 10:16 Bed 7 Private MD: ED Physician El Acosta HPI: 03/19 10:59 This 73 yrs old Female presents to ER via Wheelchair with complaints of Wound Infection.sp3 10:59 73-year-old female with a history of atrial fibrillation, rheumatoid arthritis, sp3 diabetes now presents with "wound infection" sent by home health nurse. Patient was recently hospitalized and transferred to [facility] for foot/toe infection and received a fourth toe amputation on the left foot. She had a 2-week rehab stay and is now on home health. Patient denies fever, chest pain, shortness of breath, back pain, rash anywhere else, proximal joint pain, or any other signs or symptoms on ROS at this time. Foot is painful and swollen.. Historical: - Allergies: 10:32 Bactrim; iw 10:32 Sulfa (Sulfonamide Antibiotics); iw - PMHx: 10:32 Hypertension; Sleep Apnea; Depression; Back pain; Atrial fibrillation; Rheumatoid iw Arthritis; Lupus; Enteritis; Diabetes - NIDDM; - PSHx: 10:32 Breast cancer; hysterectomy; iw - Immunization history:: Adult Immunizations Pneumococcal vaccine is not up to date, Flu vaccine is up to date. - Infectious Disease History:: Denies. - Social history:: Smoking status: Patient denies any tobacco usage or history of. Smoking status: Patient denies any tobacco usage or history of. Patient/guardian denies using tobacco, the patient reports quitting approximately 10 years ago. ROS: 11:00 Constitutional: Negative for fever, chills, and weight loss, Eyes: Negative for injury, sp3 pain, redness, and discharge, ENT: Negative for injury, pain, and discharge, Neck: Negative for injury, pain, and swelling, Respiratory: Negative for shortness of breath, cough, wheezing, and pleuritic chest pain, Abdomen/GI: Negative for abdominal pain, nausea, vomiting, diarrhea, and constipation, Back: Negative for injury and pain, Psych: Negative for depression, anxiety, suicide ideation, homicidal ideation, and hallucinations, Allergy/Immunology: Negative for hives, rash, and allergies, Endocrine: Negative for neck swelling, polydipsia, polyuria, polyphagia, and marked weight changes, Hematologic/Lymphatic: Negative for swollen nodes, abnormal bleeding, and unusual bruising, 11:00 All other systems are negative, Exam: 11:00 Constitutional: This is a well developed, well nourished patient who is awake, alert, sp3 and in no acute distress. Head/Face: Normocephalic, atraumatic. Eyes: Pupils equal round and reactive to light, extra-ocular motions intact. Lids and lashes normal. Conjunctiva and sclera are non-icteric and not injected. Cornea within normal limits. Periorbital areas with no swelling, redness, or edema. ENT: Nares patent. No nasal discharge, no septal abnormalities noted. External auditory canals are clear. Oropharynx with no redness, swelling, or masses, exudates, or evidence of obstruction, uvula midline. Mucous membranes moist. Neck: Trachea midline, no thyromegaly or masses palpated, and no cervical lymphadenopathy. Supple, full range of motion without nuchal rigidity, or vertebral point tenderness. No Meningismus. Chest/axilla: Normal chest wall appearance and motion. Nontender with no deformity. No lesions are appreciated. Respiratory: Lungs have equal breath sounds bilaterally, clear to auscultation and percussion. No rales, rhonchi or wheezes noted. No increased work of breathing, no retractions or nasal flaring. Abdomen/GI: Soft, non-tender, with normal bowel sounds. No distension or tympany. No guarding or rebound. No evidence of tenderness throughout. Back: No spinal tenderness. No costovertebral tenderness. Full range of motion. Psych: Awake, alert, with orientation to person, place and time. Behavior, mood, and affect are within normal limits. 11:00 Musculoskeletal/extremity: Patient hypertensive at 190/115 and tachycardic at 117. Afebrile. Distal part of the foot is swollen and mildly erythematous. No fermín purulence discharge however serosanguineous discharge is present from the wound site.. 11:07 ECG was reviewed by the Attending Physician. EKG demonstrates sinus tachycardia with sp3 rightward axis right bundle branch block nonspecific diffuse ST/changes without evidence of acute ischemia. Vital Signs: 10:30 BP 190 / 115; Pulse 117; Resp 16; Temp 97.7; Pulse Ox 99% on R/A; Weight 83.46 kg; iw 11:03 BP 172 / 98; Pulse 111; ll1 12:38 BP 206 / 90; Pulse 91; Resp 16 S; Pulse Ox 98% on R/A; as6 14:09 BP 180 / 88; Pulse 93; Resp 17 S; Pulse Ox 97% on R/A; as6 MDM: 10:42 Patient medically screened. sp3 11:01 Data reviewed: vital signs, nurses notes, old medical records, lab test result(s), sp3 radiologic studies. ED course: 73-year-old female with probable foot infection and early sepsis. Workup will include x-ray of the foot, laboratory values, IV hydration and antibiotics with probable admission.. 03/19 10:50 Order name: Blood Culture Adult (2) sp3 03/19 10:50 Order name: CBC with Diff; Complete Time: 12:09 sp3 03/19 10:50 Order name: CMP; Complete Time: 12:09 sp3 03/19 10:50 Order name: Lactate w/ 2H reflex if indic.; Complete Time: 12:09 sp3 03/19 10:50 Order name: Protime (+inr); Complete Time: 12:09 sp3 03/19 12:58 Order name: Wound Culture la1 03/19 10:51 Order name: Foot Left 3 View XRAY; Complete Time: 12:50 sp3 03/19 10:50 Order name: EKG; Complete Time: 10:51 sp3 03/19 12:58 Order name: [facility] ED[facility] 03/19 10:50 Order name: Cardiac monitoring; Complete Time: 11:02 sp3 03/19 10:50 Order name: EKG - Nurse/Tech; Complete Time: 11:02 sp3 03/19 10:50 Order name: IV Saline Lock - Large Bore; Complete Time: 10:52 sp03/19 10:50 Order name: Labs collected and sent; Complete Time: 10:52 sp3 03/19 10:50 Order name: O2 Sat Monitoring; Complete Time: 10:52 sp3 03/19 10:50 Order name: Vital Signs; Complete Time: 10:52 sp3 Administered Medications: 11:25 Drug: NS 0.9% IV (30 ml/kg) 30 ml/kg IV at bolus once; Sepsis Protocol Route: IV; Rate: iw bolus; Site: right wrist; 14:10 Follow up: Response: No adverse reaction; IV Status: Completed infusion; IV Intake: as6 2503.8ml 11:25 Drug: morphine IVP or IV 4 mg IVP once over 4 mins {Note: pain 10/10 RASS 0.} Route: iw IVP; Infused Over: 4 mins; Site: right forearm; 14:09 Follow up: Response: No adverse reaction as6 11:25 Drug: Ondansetron IVP 4 mg IVP once; over 2 minutes Route: IVP; Site: right forearm; iw 14:09 Follow up: Response: No adverse reaction as6 11:26 Drug: vancoMYCIN IVPB 1 grams IVPB once over 2 hrs Route: IVPB; Infused Over: 2 hrs; iw Site: right forearm; 14:09 Follow up: Response: No adverse reaction; IV Status: Completed infusion; IV Intake: as6 250ml 12:38 Drug: Piperacillin-Tazobactam IVPB 3.375 grams IVPB once over 60 mins; (mix in NS 100 as6 mL) Route: IVPB; Infused Over: 60 mins; Site: right forearm; 14:09 Follow up: Response: No adverse reaction; IV Status: Completed infusion; IV Intake: as6 100ml Disposition Summary: 03/19/24 12:15 Hospitalization Ordered Notes: Hospitalization Status: Inpatient Admission sp3 Provider: Matthew Madera3 [facility] sp3 Condition: Stable sp3 Problem: an acute exacerbation sp3 Symptoms: have worsened sp3 Bed/Room Type: Standard sp3 Room Assignment: 215(03/19/24 13:19) bd Diagnosis - Cellulitis, early sepsis sp3 Forms: - Medication Reconciliation Form sp3 - SBAR form sp3 - Leadership Thank You Letter sp3 Signatures: Dispatcher [employer] Vaishnavi Nelson Irene, RN RN iw El Acosta MD MD sp3 Olivier Mayer RN RN as6 Corrections: (The following items were deleted from the chart) 10:51 10:51 Foot Left 3 View+RAD.RAD.BRZ ordered. EDMS EDMS 13:19 12:15 sp3 bd
--- NOTE | 2024-03-19 12:16 | ER ---
Nurse's Notes [facility] Name: Bridgett Gotti Age: 73 yrs Sex: Female : 1950 Arrival Date: 03/19/2024 Time: 10:16 Bed 7 Private MD: Diagnosis: Cellulitis, early sepsis Presentation: 03/19 10:30 Chief complaint: Patient states: on February 07 I was at [facility] in [place], had a toe iw amputated, was in NH for two week, now the home health nurse says it's infected. Coronavirus screen: At this time, the client does not indicate any symptoms associated with coronavirus-19. Ebola Screen: Patient negative for fever greater than or equal to 101.5 degrees Fahrenheit, and additional compatible Ebola Virus Disease symptoms Patient denies exposure to infectious person. Patient denies travel to an Ebola-affected area in the 21 days before illness onset. Initial Sepsis Screen: Does the patient meet any 2 criteria? No. Patient's initial sepsis screen is negative. Does the patient have a suspected source of infection? No. Patient's initial sepsis screen is negative. Risk Assessment: Do you want to hurt yourself or someone else? Patient reports no desire to harm self or others. Onset of symptoms was February 08, 2024. 10:30 Acuity: LASHONDA 3 iw 10:30 Method Of Arrival: Wheelchair iw Historical: - Allergies: 10:32 Bactrim; iw 10:32 Sulfa (Sulfonamide Antibiotics); iw - PMHx: 10:32 Hypertension; Sleep Apnea; Depression; Back pain; Atrial fibrillation; Rheumatoid iw Arthritis; Lupus; Enteritis; Diabetes - NIDDM; - PSHx: 10:32 Breast cancer; hysterectomy; iw - Immunization history:: Adult Immunizations Pneumococcal vaccine is not up to date, Flu vaccine is up to date. - Infectious Disease History:: Denies. - Social history:: Smoking status: Patient denies any tobacco usage or history of. Smoking status: Patient denies any tobacco usage or history of. Patient/guardian denies using tobacco, the patient reports quitting approximately 10 years ago. Screenin:13 [facility] ED Fall Risk Assessment (Adult) History of falling in the last 3 months, as6 including since admission No falls in past 3 months (0 pts) Confusion or Disorientation No (0 pts) Intoxicated or Sedated No (0 pts) Impaired Gait Yes (1 pt) Mobility Assist Device Used Yes (1 pt) Altered Elimination No (0 pt) Score/Fall Risk Level 0 - 2 = Low Risk Oriented to surroundings, Maintained a safe environment, Educated pt \T\ family on fall prevention, incl call for assistance when getting out of bed, Assessed \T\ reinforced patient's understanding of fall precautions. Abuse screen: Denies threats or abuse. Denies injuries from another. Nutritional screening: No deficits noted. Tuberculosis screening: No symptoms or risk factors identified. Assessment: 11:03 General: Appears uncomfortable, Behavior is calm, cooperative, appropriate for age. ll1 Pain: Complains of pain in left foot Quality of pain is described as aching. Derm: Decubitus located on left approximately second digit s/p amputation. Bottom of L foot is red, sore. Stitches intact, skin near sutures is yellow slimy tissue. Musculoskeletal: Circulation, motion, and sensation intact. Capillary refill < 3 seconds, Reports pain in left foot. 11:30 Reassessment: No changes from previously documented assessment. Patient and/or family ll1 updated on plan of care and expected duration. Pain level reassessed. Patient is alert, oriented x 3, equal unlabored respirations, skin warm/dry/pink. 12:40 Reassessment: Patient appears in no apparent distress at this time. Patient and/or as6 family updated on plan of care and expected duration. Pain level reassessed. Patient is alert, oriented x 3, equal unlabored respirations, skin warm/dry/pink. Vital Signs: 10:30 BP 190 / 115; Pulse 117; Resp 16; Temp 97.7; Pulse Ox 99% on R/A; Weight 83.46 kg; iw 11:03 BP 172 / 98; Pulse 111; ll1 12:38 BP 206 / 90; Pulse 91; Resp 16 S; Pulse Ox 98% on R/A; as6 14:09 BP 180 / 88; Pulse 93; Resp 17 S; Pulse Ox 97% on R/A; as6 ED Course: 10:20 Patient arrived in ED. mr 10:21 El Acosta MD is Attending Physician. sp3 10:31 Triage completed. iw 10:33 Arm band placed on. iw 11:12 Foot Left 3 View XRAY In Process Unspecified. EDMS 11:26 Yaron Madrigal, RN is Primary Nurse. iw 11:26 Blood Culture Adult (2) Sent. iw 11:37 Warm blanket given. Pillow given. ll1 12:14 Matthew Madera MD is Hospitalizing Provider. sp3 13:13 Bed in low position. Call light in reach. Side rails up X2. Assisted to bathroom. as6 14:10 Provided Education on: need for admit. as6 14:10 No provider procedures requiring assistance completed. Patient admitted, IV remains in as6 place. Administered Medications: 11:25 Drug: NS 0.9% IV (30 ml/kg) 30 ml/kg IV at bolus once; Sepsis Protocol Route: IV; Rate: iw bolus; Site: right wrist; 14:10 Follow up: Response: No adverse reaction; IV Status: Completed infusion; IV Intake: as6 2503.8ml 11:25 Drug: morphine IVP or IV 4 mg IVP once over 4 mins {Note: pain 1010 RASS 0.} Route: iw IVP; Infused Over: 4 mins; Site: right forearm; 14:09 Follow up: Response: No adverse reaction as6 11:25 Drug: Ondansetron IVP 4 mg IVP once; over 2 minutes Route: IVP; Site: right forearm; iw 14:09 Follow up: Response: No adverse reaction as6 11:26 Drug: vancoMYCIN IVPB 1 grams IVPB once over 2 hrs Route: IVPB; Infused Over: 2 hrs; iw Site: right forearm; 14:09 Follow up: Response: No adverse reaction; IV Status: Completed infusion; IV Intake: as6 250ml 12:38 Drug: Piperacillin-Tazobactam IVPB 3.375 grams IVPB once over 60 mins; (mix in NS 100 as6 mL) Route: IVPB; Infused Over: 60 mins; Site: right forearm; 14:09 Follow up: Response: No adverse reaction; IV Status: Completed infusion; IV Intake: as6 100ml Medication: 13:14 VIS not applicable for this client. as6 Intake: 14:09 IV: 100ml; Total: 100ml. as6 14:09 IV: 250ml; Total: 350ml. as6 14:10 IV: 2504ml; Total: 2854ml. as6 Outcome: 12:15 Decision to Hospitalize by Provider. sp3 14:10 Admitted to Med/surg accompanied by tech, via wheelchair, room 215, with chart, as6 14:10 Condition: stable 14:10 Instructed on the need for admit, 14:24 Patient left the ED. as6 Signatures: Dispatcher [employer] EDWA Tasia Montiel, Reg Reg mr Audrey Hernandez RN RN iw Yaron Madrigal RN RN ll1 El Acosta MD MD sp3 Olivier Mayer RN RN as6 Corrections: (The following items were deleted from the chart) 10:32 10:30 Pulse 18bpm; Resp 16bpm; Pulse Ox 99% RA; Temp 97.7F; iw iw 10:32 10:30 BP 190 / 115; Pulse 18bpm; Resp 16bpm; Pulse Ox 99% RA; Temp 97.7F; iw iw
--- NOTE | 2024-03-19 12:17 | RAD REPORT ---
EXAM DESCRIPTION: RAD - Foot Left 3 View - 03/19/2024 11:09 am CLINICAL HISTORY: Left Foot pain FINDINGS: No fracture or dislocation is seen. Large calcaneal spur Hallux valgus and hammertoe deformities Old fifth metatarsal fracture. Amputation third phalanx Osteoporosis. No radiographic evidence of osteomyelitis. If this is of strong clinical concern then MRI would be re commended
[2024-03-19] MEDS ORDERED: NA CHLORIDE 0.9% 100 ML ONE (12:25)
[2024-03-19] MEDS ORDERED: PIPERACIL/TAZO 3.375 GM VIAL IV ONE (12:25)
[2024-03-19] MEDS ORDERED: ONDANSETRON 4 MG/2 ML VIAL IV PRN (13:58)
[2024-03-19] MEDS ORDERED: ACETAMINOPHEN 325 MG TABLET PO PRN (13:58)
[2024-03-19] MEDS: GABAPENTIN 300 MG CAP PO SCH (14:37)
[2024-03-19] MEDS: ENOXAPARIN 40 MG/0.4 ML SQ SCH (14:37)
[2024-03-19] MEDS: COLLAGENASE 30 GM OINTMENT TOP SCH (14:38)
[2024-03-19] MEDS: NA CHLORIDE 0.9% 1,000 ML IV SCH (14:39)
[2024-03-19] MEDS ORDERED: HYDRALAZINE HCL 20 MG/ML VIAL IV PRN (15:00)
--- NOTE | 2024-03-19 15:00 | P.HP ---
Certification for Inpatient Patient admitted to: Inpatient With expected LOS: >2 Midnights Patient will require the following post-hospital care: None Practitioner: I am a practitioner with admitting privileges, knowledge of patient current condition, hospital course, and medical plan of care. Services: Services provided to patient in accordance with Admission requirements found in Title 42 Section 412.3 of the Code of Federal Regulations Patient History Date of Service: 03/19/24 Reason for admission: Left foot cellulitis/wound History of Present Illness: 72-year-old female with history of insulin-dependent diabetes, PAD, hypertension, hyperlipidemia presents the emergency department with chief complaint of left foot infection. She was admitted at [facility] approximately 1 month ago and had angioplasty performed of her peroneal artery and her left leg and subsequently underwent a third toe amputation with incision and drainage on 02/[address] Arriaza. Surgical culture grew Klebsiella, staph epidermis, Enterococcus faecalis and group B beta-hemolytic strep. Patient was treated with IV Zosyn in the hospital and transition to p.o. Augmentin at discharge. After discharge she stayed at a senior care facility for 2 weeks and was subsequent discharged home where she had home health. Today her home health nurse came out and noticed that she had been having increasing swelling, purulent drainage of the wound to her left third toe and referred her to the emergency department for evaluation. She was evaluated in the emergency dep artment her labs were significant for hyperglycemia with a glucose of 331 white blood cell count was in normal limits x-ray of the foot did not show any signs of osteomyelitis. The foot is erythematous, tender, edematous and there is some purulent drainage from the amputation site. Discussed possible transfer back to [facility] for continuity of care with her surgeon but patient declined and reports she is much rather stay here. Subsequently discussed case with Dr. Aden who saw her for wound healing in the past few years agrees to consult on her case. Allergies doxycycline Allergy (Severe, Verified 12/17/19 22:08) Nausea/Vomiting Sulfa (Sulfonamide Antibiotics) Allergy (Severe, Verified 12/17/19 22:08) Hives sulfamethoxazole [From Bactrim] Allergy (Severe, Verified 12/17/19 22:08) Hives trimethoprim [From Bactrim] Allergy (Severe, Verified 12/17/19 22:08) Hives Home Medications: Amlodipine [Norvasc*] 10 mg PO DAILY 12/17/19 Duloxetine HCl [Cymbalta] 30 mg PO BEDTIME 12/17/19 Lisinopril [Zestril] 20 mg PO BID 12/17/19 Melatonin 10 mg PO BEDTIME PRN 12/17/19 Metoprolol Tartrate [Lopressor] 100 mg PO DAILY 12/17/19 cloNIDine HCL [Catapres] 0.1 mg PO PRN PRN 12/17/19 clonazePAM [Klonopin*] 1 mg PO TIDP PRN 12/17/19 Aspirin [Aspirin EC 81 MG] 81 mg PO DAILY #30 tablet. 01/21/20 Duloxetine HCl [Cymbalta] 60 mg PO AC 01/10/22 Insulin Glargine,Hum.rec.anlog [Lantus] 25 units SQ DAILY 03/19/24 - Past Medical/Surgical History Has patient received pneumonia vaccine in the past: Yes Diabetic: Yes -: HTN -: Diabetes mellitus type 2 insulin-dependent -: Lupus -: Rheumatoid arthritis -: CAD -: Depression with anxiety -: Former smoker -: Claustrophobia -: PAD -: hyperlipidemia -: -: Hysterectomy -: Tonsillectomy -: Incision and drainage of thumb -: Bladder Suspension -: Left third toe amputation Psychosocial/ Personal History: Patient lives at home - Family History Mother -: Diabetes, Cancer Notes: uterine cancer Father -: Cancer Notes: cancer of kidney, skin, and lung Brother -: Heart disease, Cancer Notes: Brother 1. "heart problems" Brother 2. cancer - nonhogkin lymphoma Sister -: Cancer Notes: skin cancer - Social History Smoking Status: Former smoker Alcohol use: Yes CD- Drugs: No Caffeine use: No Place of Residence: Home Review of Systems 10-point ROS is otherwise unremarkable Musculoskeletal: Foot Pain, As per HPI Physical Examination - Vital Signs Temperature: 97.7 F Blood Pressure: 180/88 Pulse: 93 Respirations: 17 - Physical Exam General: Alert, In no apparent distress, Oriented x3 HEENT: Atraumatic, PERRLA, Mucous membr. moist/pink Neck: Supple, 2+ carotid pulse no bruit, No LAD Respiratory: Clear to auscultation bilaterally, Normal air movement Cardiovascular: Regular rate/rhythm, Normal S1 S2 Gastrointestinal: Normal bowel sounds, No tenderness Musculoskeletal: Other (Left foot erythematous, swollen especially distally. Surgical incision site to base of amputated third toe on the left with purulent drainage, wound present) Integumentary: No rashes Neurological: Normal speech, Normal strength at 5/5 x4 extr, Normal tone, Normal affect - Studies Laboratory Data (last 24 hrs) 03/19/24 03/19/24 03/19/24 11:00 11:00 11:00 WBC 5.80 Hgb 11.8 L Hct 34.4 L Plt Count 227 PT 12.9 H INR 1.18 Sodium 134 L Potassium 3.7 BUN 8 Creatinine 0.83 Glucose 331 H Total Bilirubin 1.1 H AST 35 ALT 29 Alkaline Phosphatase 172 H Assessment and Plan - Plan Assessment: Diabetic/arterial left foot wound/cellulitis status post left third digit amputation 02/17 PAD with recent angioplasty to left peroneal artery Diabetes mellitus type 2insulin-dependent with hyperglycemia Hypertension Hyperlipidemia Neuropathy Plan: Diabetic/arterial left foot wound/cellulitis status post left third digit amputation 02/17 PAD with recent angioplasty to left peroneal artery Amputation site base of left third toe with purulent drainage, left foot swollen especially distally Blood cultures and wound culture obtained-will need to follow Continue broad-spectrum antibiotics with vancomycin/cefepime Discussed possible transfer back to [facility] for continuity of care- patient declined General surgery consultedDr. Aden Continue with wet-to-dry dressings for now Sutures which were still in place removed by me 03/19 Diabetes mellitus type 2insulin-dependent with hyperglycemia ACHS Accu-Chek, sign scale insulin Long-acting insulin resumed Hypertension Hyperlipidemia Neuropathy Home medications resumed DVT PPX: Lovenox Code status: Full Discharge Plan: Home Plan to discharge in: Greater than 2 days - Advance Directives Does patient have a Living Will: No Does patient have a Durable POA for Healthcare: No - Code Status/Comfort Care Code Status Assessed: Yes (Full code) Critical Care: No Time Spent Managing Pts Care (In Minutes): 70
[2024-03-19] MEDS: HYDROCODONE/APAP 7.5/325 MG TAB PO PRN (15:11)
[2024-03-19 15:14] VITALS: BMI 34.2
--- NOTE | 2024-03-19 15:49 | P.CNS ---
Date of Consult: 03/19/24 PC: I was asked see this patient in regards to her amputated toe and foot. HPC: Patiently recently had the middle toe of her left foot amputated another facility. Had been at home on antibiotics. Noticed that she was having pain and swelling in that area. Presents now to our emergency room. PSHx: Complications of peripheral vascular disease PMHx: Peripheral vascular disease Social Hx: Allergies noted Sys R: No cough, wheeze, shortness of breath. No chest pain or palpitations. Says she has been in relatively good spirits for the last for a while until her toe had to be amputated. O/E: Awake alert vital signs are stable HEENT: Negative Chest: Air entry equal bilaterally Abd: Negative Goldsmith: On inspection of the left foot where the third toe was there is a hole in that area obviously a surgical wound that is open. There was some suture in the base of the wound. The sutures were cut and removed by the hospitalist for me. The foot does show some fullness, there is no actual fluctuance however in that area. No pus was expressed out of the wound Impression: Infected nonhealing surgical wound Plan: We will treat the wound with Santyl and wet-to-dry dressings. The wound has not fully demarcated itself, and may well drain by itself. She has also been started back on antibiotics. We will let this wound heal by secondary intention. Anticipate that once he cleans up, she may be discharged and followed in the wound center.
[2024-03-19] MEDS: INSULIN REGULAR (HUMAN) 100 UNIT/ML SQ SCH (16:53)
[2024-03-19] MEDS: VANCOMYCIN 500 MG in NA CHLORIDE 0.9% 100 ML IVPB ONE (16:54)
[2024-03-19] MEDS: CEFEPIME 2 GM in NA CHLORIDE 0.9% 100 ML IV SCH (20:35)
[2024-03-19] MEDS: METOPROLOL TAR 50 MG TAB PO SCH (20:36)
[2024-03-19] MEDS: MORPHINE 2 MG/ML SYR IV PRN (20:36)
[2024-03-19] MEDS: ATORVASTATIN 80 MG TAB PO SCH (20:36)
[2024-03-20 03:58] LABS: Absolute Basophils 0.1 K/uL (0-0.5); Absolute Eosinophils 0.7 K/uL (0-0.5); Absolute Lymphocytes (CBC) 1.4 K/uL (0.7-4.9); Absolute Monocytes 0.6 K/uL (0.1-1.3); Absolute Neutrophil 3.5 K/uL (1.8-8.0); Basophils % 1.4 % (0-1.3); Eosinophils % 10.7 % (0-4.4); Hematocrit 29.2 % (36.0-45.0); Lymphocytes % 22.3 % (15.3-44.8); MCHC 34.2 g/dL (32.0-36.0); MCV 90.7 fL (80-100); MPV 9.8 fL (7.6-11.3); Monocytes % 9.2 % (3.3-12.3); Neutrophils % 56.4 % (41.7-73.7); Platelets 175 thou/uL (152-406); RBC Red Blood Cell Count 3.22 M/uL (3.86-4.86); Red Cell Distribution Width 13.8 % (12.1-15.2)
[2024-03-20 04:20] LABS: Anion Gap 8.5 mEq/L (5.0-15.0); Potassium 3.5 mEq/L (3.5-5.1)
[2024-03-20] MEDS: INSULIN GLARGINE 100 UNIT/ML SQ SCH (08:54)
[2024-03-20] MEDS: ASPIRIN EC 81 MG TAB PO SCH (09:00)
[2024-03-20] MEDS: TAMSULOSIN 0.4 MG SR CAP PO SCH (09:01)
[2024-03-20] MEDS: lisinopriL 20 MG TAB PO SCH (09:01)
[2024-03-20] MEDS: CLOPIDOGREL 75 MG TABLET PO SCH (09:01)
[2024-03-20] MEDS: POTASSIUM CL SA 10 MEQ TAB PO ONE (09:02)
[2024-03-20] MEDS: DULOXETINE 30 MG CAP PO SCH (09:03)
[2024-03-20] MEDS: VANCOMYCIN 1.5 GM in NA CHLORIDE 0.9% 500 ML IVPB SCH (09:03)
[2024-03-20] MEDS: AMLODIPINE 10 MG TAB PO SCH (09:16)
[2024-03-20] MEDS ORDERED: VANCOMYCIN 1.5 GM in NA CHLORIDE 0.9% 500 ML IVPB SCH (11:00)
--- NOTE | 2024-03-20 13:43 | P.PN ---
Date of Service: 03/20/24 Subjective: Patient feels like there is slight improvement in the appearance of her left lower extremity No acute events overnight ROS: 10 point ROS as noted above, otherwise negative Physical exam GEN: Alert, oriented, NAD HEENT: Normal conjunctiva, sclera anicteric CV: Regular rate and rhythm, no edema Pulm: Nonlabored respirations on room air ABD: Soft, nontender, nondistended MSK: No joint tenderness Integumentary: Wound to left foot base of third digit from previous amputation with purulent drainage, swelling/erythema noted to bottom of left foot Neuro: Normal speech, normal affect Vitals reviewed Assessment: Diabetic/arterial left foot wound/cellulitis status post left third digit amputa tion 02/17 PAD with recent angioplasty to left peroneal artery Diabetes mellitus type 2insulin-dependent with hyperglycemia Hypertension Hyperlipidemia Neuropathy Plan: Diabetic/arterial left foot wound/cellulitis status post left third digit amputation 02/17 PAD with recent angioplasty to left peroneal artery Amputation site base of left third toe with purulent drainage, left foot swollen especially distally Blood cultures and wound culture obtained-will need to follow Continue broad-spectrum antibiotics with vancomycin/cefepime Discussed possible transfer back to [facility] for continuity of care- patient declined General surgery consultedDr. Aden-nonoperative management for now Santyl with dry dressings daily Sutures which were still in place removed 03/19 Wound healing consulted Will need outpatient follow-up with Dr. Aden on Wednesdays for further wound management Diabetes mellitus type 2insulin-dependent with hyperglycemia ACHS Accu-Chek, sign scale insulin Long-acting insulin resumed Hypertension Hyperlipidemia Neuropathy Home medications resumed DVT PPX: Lovenox Code status: Full Discharge Plan: Home Plan to discharge in: Greater than 2 days Time Spent Managing Pts Care (In Minutes): 35 <Rafael Wang - Last Filed: 03/20/24 13:43> Patient seen and examined on rounds this morning with [employer] Kathleen. I performed a substantial part of the MDM during this patient's care today as noted above in the plan of care. I agree with plan of care as noted above with the following additions / corrections: sutures removed yesterday in ER foul odor, with purulent drainage tender around wound, most tender on plantar aspect Dr. Keiko evaluated patient, does not feel there is an abscess / does not necessitate further exploration recommends continue local wound care and antibiotics f/u in wound clinic once discharged f/u cultures <Matthew Madera - Last Filed: 03/20/24 20:41>
--- NOTE | 2024-03-20 15:15 | P.PN ---
Date of Service: 03/20/24 S: Patient is no specific complaints today, states her pain is a lot less than yesterday. O: I do not see any abscess or fluid collection that needs to be surgically drained at the moment. There is some necrotic debris around the edges of the open wound, but I am reluctant to debride this as it truly has not demarcated to indicate viable versus nonviable tissue. A: Surgical wound is stable at the moment P: Patient is on IV antibiotics at the moment. Recommend daily dressing changes. When she is discharged, she may be followed up in the wound care clinic. Will most likely require some surgical closure in a week or 2 with possible debridement. I have discussed with this with the patient, she is content with this course of treatment, she is adamant she does not want to be transferred anywhere.
[2024-03-21 03:36] LABS: Absolute Eosinophils 0.8 K/uL (0-0.5); Absolute Lymphocytes (CBC) 1.3 K/uL (0.7-4.9); Absolute Monocytes 0.5 K/uL (0.1-1.3); Absolute Neutrophil 1.8 K/uL (1.8-8.0); Basophils % 0.9 % (0-1.3); Eosinophils % 18.2 % (0-4.4); Hemoglobin 9.5 g/dL (12.0-15.0); MCH 31.3 pg (27.0-35.0); MCHC 35.1 g/dL (32.0-36.0); MCV 89.4 fL (80-100); Monocytes % 11.5 % (3.3-12.3); Neutrophils % 40.4 % (41.7-73.7); Nucleated Red Blood Cells % 0.2 % (0-0); Platelets 166 thou/uL (152-406); RBC Red Blood Cell Count 3.02 M/uL (3.86-4.86); Red Cell Distribution Width 13.5 % (12.1-15.2)
[2024-03-21 04:03] LABS: Anion Gap 6.6 mEq/L (5.0-15.0); Potassium 3.6 mEq/L (3.5-5.1)
[2024-03-21] MEDS: POTASSIUM CL SA 10 MEQ TAB PO ONE (08:59)
--- NOTE | 2024-03-22 00:15 | P.PN ---
Date of Service: 03/21/24 Subjective: No acute events overnight + left foot pain ROS: 10 point ROS as noted above, otherwise negative Physical exam GEN: Alert, oriented. In no apparent distress. HEENT: head normocephalic. Normal conjunctiva, sclera anicteric CV: Regular rate and rhythm, no edema Pulm: Nonlabored respirations on room air ABD: Soft, nontender, nondistended MSK: No joint tenderness Integumentary: left foot wound dressing clean dry and intact. Neuro: Normal speech, normal affect Vitals reviewed labs reviewed Assessment and Plan Problem List Diabetic/arterial left foot wound/cellulitis status post left third digit amputation 02/17 PAD with recent angioplasty to left peroneal artery Diabetes mellitus type 2insulin-dependent with hyperglycemia Hypertension Hyperlipidemia Neuropathy Diabetic/arterial left foot wound/cellulitis status post left third digit amputation 02/17 PAD with recent angioplasty to left peroneal artery - Blood cultures 03/19: no growth to date - Wound culture left foot 03/19: Enterobacter aerogenes - deescalate antibiotic coverage to Ciprofloxacin PO prior to discharge. Pt with multiple drug allergies. - Discussed possible transfer back to [facility] for continuity of care; pat italo declined General surgery consultedDr. Aden-nonoperative management for now. Daily dressing changes while inpatient. Sutures removed 03/19 Will need outpatient follow-up with Dr. Aden on Wednesdays for further wound management Diabetes mellitus type 2insulin-dependent with hyperglycemia - ACHS Accu-Chek, sign scale insulin - Long-acting insulin resumed - strict blood glucose control Hypertension Hyperlipidemia Neuropathy - continue home medications DVT PPX: Lovenox Code status: Full Discharge Plan: Home Plan to discharge in: 24 hours
[2024-03-22 04:44] LABS: Absolute Basophils 0.1 K/uL (0-0.5); Absolute Eosinophils 0.6 K/uL (0-0.5); Absolute Lymphocytes (CBC) 1.2 K/uL (0.7-4.9); Absolute Monocytes 0.5 K/uL (0.1-1.3); Absolute Neutrophil 2.2 K/uL (1.8-8.0); Basophils % 1.3 % (0-1.3); Eosinophils % 13.2 % (0-4.4); Hematocrit 27.8 % (36.0-45.0); Hemoglobin 9.4 g/dL (12.0-15.0); Lymphocytes % 26.5 % (15.3-44.8); MCH 30.6 pg (27.0-35.0); MCHC 33.6 g/dL (32.0-36.0); MPV 9.5 fL (7.6-11.3); Monocytes % 11.4 % (3.3-12.3); Neutrophils % 47.6 % (41.7-73.7); Nucleated Red Blood Cells % 0.2 % (0-0); Platelets 169 thou/uL (152-406); RBC Red Blood Cell Count 3.06 M/uL (3.86-4.86); Red Cell Distribution Width 13.4 % (12.1-15.2)
[2024-03-22 05:05] LABS: Anion Gap 7.5 mEq/L (5.0-15.0); Potassium 3.5 mEq/L (3.5-5.1)
[2024-03-22] MEDS: POTASSIUM CL SA 10 MEQ TAB PO ONE (09:22)
[2024-03-22] MEDS: CIPROFLOXACIN HCL 500 MG TAB PO SCH (09:22)
--- NOTE | 2024-03-22 10:47 | P.PN ---
Date of Service: 03/22/24 Subjective: No acute events overnight. In no apparent distress. + left foot pain. Otherwise no new/worsening complaints at this time. Physical exam GEN: Alert, oriented. In no apparent distress. HEENT: head normocephalic. Normal conjunctiva, sclera anicteric CV: Regular rate and rhythm, no edema Pulm: Nonlabored respirations on room air ABD: Soft, nontender, nondistended MSK: Left foot pain. S/p left third digit amputation. Integumentary: left foot wound with mild purulent drainage and foul odor Neuro: Normal speech, normal affect Vitals reviewed Labs reviewed Assessment and Plan Problem List Diabetic/arterial left foot wound/cellulitis status post left third digit amputation 02/17 PAD with recent angioplasty to left peroneal artery Diabetes mellitus type 2insulin-dependent with hyperglycemia Hypertension Hyperlipidemia Neuropathy Diabetic/arterial left foot wound/cellulitis status post left third digit amputation 02/17 PAD with recent angioplasty to left peroneal artery - Blood cultures 03/19: no growth to date - Wound culture left foot 03/19: Enterobacter aerogenes - previously on cefepime and vancomycin. Deescalated to Ciprofloxacin PO. Pt with multiple drug allergies, limiting antibiotic regimen options. - Discussed possible transfer back to [facility] for continuity of care; patient declined - Sutures removed 03/19 -General surgery consulted: Dr. Aden recommending nonoperative management for now. - Daily dressing changes - Will need outpatient follow-up with Dr. Aden on Wednesdays for further wound management -Left foot wound with minimal purulent drainage foul odor. Continue wound care per Dr. Aden. Continue to monitor the wound for worsening signs and symptoms of infection. Diabetes mellitus type 2insulin-dependent with hyperglycemia - ACHS Accu-Chek; sliding scale insulin - Long-acting insulin resumed - strict blood glucose control Hypertension Hyperlipidemia Neuropathy - continue home medications DVT PPX: Lovenox Code status: Full Discharge Plan: Home Plan to discharge in: 24 hours
[2024-03-23 04:36] LABS: Anion Gap 6.4 mEq/L (5.0-15.0); Potassium 3.4 mEq/L (3.5-5.1)
[2024-03-23] MEDS: POTASSIUM CL SA 10 MEQ TAB PO ONE (08:09)
[2024-03-23 08:12] VITALS: O2SAT 96
--- NOTE | 2024-03-23 12:33 | P.PN ---
Date of Service: 03/23/24 Subjective: Left foot pain/tenderness, swelling prominently on plantar surface. There is some purulent drainage noted. No acute events overnight. Physical exam GEN: Alert, oriented. In no apparent distress. HEENT: head normocephalic. Normal conjunctiva, sclera anicteric CV: Regular rate and rhythm, no edema Pulm: clear to auscultation. Nonlabored respirations on room air ABD: Soft, nontender, nondistended. Normoactive bowel sounds. MSK/Skin: Left foot pain/tenderness. S/p left third digit amputation, purulent drainage observed. Neuro: Normal speech, normal affect Vitals reviewed Assessment and Plan Problem List Diabetic/arterial left foot wound/cellulitis status post left third digit amputation 02/17 PAD with recent angioplasty to left peroneal artery Diabetes mellitus type 2insulin-dependent with hyperglycemia Hypertension Hyperlipidemia Neuropathy Diabetic/arterial left foot wound/cellulitis status post left third digit amputation 02/17 PAD with recent angioplasty to left peroneal artery - Blood cultures 03/19: no growth to date - Wound culture left foot 03/19: Enterobacter aerogenes - previously on cefepime and vancomycin. Deescalated to Ciprofloxacin PO on 03/22 given culture results. Pt with multiple drug allergies, limiting antibiotic regimen options. - Possible transfer back to [facility] for continuity of care was discussed with patient, patient declined - Sutures removed 03/19 -General surgery Dr. Aden following. - Daily dressing changes - Will need outpatient follow-up with Dr. Aden on Wednesdays -Left foot wound with purulence noted; increased tenderness. - Continue to monitor may need CT of L foot to eval for abscess. Continue wound care per Dr. Aden. Diabetes mellitus type 2insulin-dependent with hyperglycemia - ACHS Accu-Chek; sliding scale insulin - Long-acting insulin - strict blood glucose control. goal <180 Hypertension Hyperlipidemia Neuropathy - continue home medications DVT PPX: Lovenox Code status: Full Discharge Plan: Home Plan to discharge in: 24-48 hours
[2024-03-23] MEDS: MORPHINE 4 MG/ML SYR IV PRN (13:05)
[2024-03-24 09:15] LABS: Anion Gap 4.8 mEq/L (5.0-15.0); Magnesium 1.1 mg/dL (1.6-2.4); Potassium 3.8 mEq/L (3.5-5.1)
--- NOTE | 2024-03-24 09:17 | P.DS ---
Admission Date: 03/19/24 Discharge Date: 03/25/24 Disposition: DC HOME/HOME HEALTH CARE Discharge Condition: GOOD Reason for Admission: Left foot cellulitis/wound Consultations: Surgery:Dr. Aden Brief History of Present Illness: 72-year-old female with history of insulin-dependent diabetes, PAD, hypertension, hyperlipidemia presents the emergency department with chief complaint of left foot infection. She was admitted at [facility] approximately 1 month ago and had angioplasty performed of her peroneal artery and her left leg and subsequently underwent a third toe amputation with incision and drainage on 02/[address] Arriaza. After discharge she stayed at a halfway facility for 2 weeks and was subsequent discharged home. Her home health nurse noticed that she had been having increasing swelling, purulent drainage of the wound to her left third toe and referred her to the emergency department for evaluation. She was evaluated in the emergency department her labs were significant for hyperglycemia, white blood cell count was in normal limits, x-ray of the foot did not show any signs of osteomyelitis. The foot is erythematous, tender, edematous and there is some purulent drainage from the amputation site. Discussed possible transfer back to [facility] for continuity of care with her surgeon but patient declined and reports she is much rather stay here. She was admitted for left foot surgical site infection. Hospital Course: Problem List Diabetic/arterial left foot wound/cellulitis status post left third digit amputation 02/17 PAD with recent angioplasty to left peroneal artery Diabetes mellitus type 2insulin-dependent with hyperglycemia Hypertension Hyperlipidemia Neuropathy Presented with infected nonhealing left third toe amputation site infection. She was started on empiric antibiotics cefepime and vancomycin. It was discussed with patient to transfer to [facility] where she originally had the surgery for further management however patient denied transfer. Wound culture growing Enterobacter aerogenes, de-escalated antibiotic to ciprofloxacin. Dr. Aden consulted, no surgical intervention at this time. Deemed stable for discharge and follow up in wound care clinic as outpatient. Wound care instructions - Left foot: cleanse with vashe; Apply Santyl, NS moistened gauze, dry gauze, kerlix and ashley wrap daily. May apply AD ointment prior ro kerlix application. New Medications: - Ciprofloxacin 500 mg p.o. twice daily for 7 days - [place] 7.5/325 mg Q6H PO PRN for pain Continue home medications as previously prescribed. Follow ups: - Dr. Aden within 1 week. Please call office to confirm appointment. Physical exam GEN: Alert, oriented. In no apparent distress. HEENT: head normocephalic. Normal conjunctiva, sclera anicteric CV: Regular rate and rhythm, no edema Pulm: clear to auscultation. Nonlabored respirations on room air ABD: Soft, nontender, nondistended. Normoactive bowel sounds. MSK/Skin: Left foot pain/tenderness. S/p left third digit amputation, purulent drainage observed. Neuro: Normal speech, normal affect Vital Signs/Physical Exam: Temp Pulse Resp BP Pulse Ox 97.3 F 58 16 161/73 H 96 03/24/24 08:00 03/24/24 08:00 03/24/24 08:00 03/24/24 08:00 03/24/24 08:00 Laboratory Data at Discharge: WBC 4.60 thou/uL (4.3-10.9) 03/22/24 03:37 Hgb 9.4 g/dL (12.0-15.0) L 03/22/24 03:37 Hct 27.8 % (36.0-45.0) L 03/22/24 03:37 Plt Count 169 thou/uL (152-406) 03/22/24 03:37 PT 12.9 SECONDS (9.5-12.5) H 03/19/24 11:00 INR 1.18 03/19/24 11:00 Sodium 135 mEq/L (136-145) L 03/24/24 08:45 Potassium 3.8 mEq/L (3.5-5.1) 03/24/24 08:45 BUN 5 mg/dL (7-18) L 03/24/24 08:45 Creatinine 0.61 mg/dL (0.55-1.02) 03/24/24 08:45 Glucose 197 mg/dL (74-106) H 03/24/24 08:45 Magnesium 1.1 mg/dL (1.6-2.4) L 03/24/24 08:45 Total Bilirubin 1.1 mg/dL (0.2-1.0) H 03/19/24 11:00 AST 35 U/L (15-37) 03/19/24 11:00 ALT 29 U/L (13-56) 03/19/24 11:00 Alkaline Phosphatase 172 U/L (45-117) H 03/19/24 11:00 Home Medications: Amlodipine [Norvasc*] 10 mg PO DAILY 12/17/19 Duloxetine HCl [Cymbalta] 30 mg PO BEDTIME 12/17/19 Lisinopril [Zestril] 20 mg PO BID 12/17/19 Melatonin 10 mg PO BEDTIME PRN 12/17/19 Metoprolol Tartrate [Lopressor] 100 mg PO DAILY 12/17/19 cloNIDine HCL [Catapres] 0.1 mg PO PRN PRN 12/17/19 clonazePAM [Klonopin*] 1 mg PO TIDP PRN 12/17/19 Aspirin [Aspirin EC 81 MG] 81 mg PO DAILY #30 tablet. 01/21/20 Duloxetine HCl [Cymbalta] 60 mg PO AC 01/10/22 Insulin Glargine,Hum.rec.anlog [Lantus] 25 units SQ DAILY 03/19/24 Ciprofloxacin HCl [Cipro] 500 mg PO BID 7 Days #14 tab 03/24/24 New Medications: Ciprofloxacin HCl [Cipro] 500 mg PO BID 7 Days #14 tab Physician Discharge Instructions: Presented with infected nonhealing left third toe amputation site infection. She was started on empiric antibiotics cefepime and vancomycin. It was discussed with patient to transfer to [facility] where she originally had the surgery for further management however patient denied transfer. Wound culture growing Enterobacter aerogenes, de-escalated antibiotic to ciprofloxacin. Dr. Aden consulted, no surgical intervention at this time. Deemed stable for discharge and follow up in wound care clinic as outpatient. Wound care instructions - Left foot: cleanse with vashe; Apply Santyl, NS moistened gauze, dry gauze, kerlix and ashley wrap daily. May apply AD ointment prior ro kerlix application. New Medications: - Ciprofloxacin 500 mg p.o. twice daily for 7 days - [place] 7.5/325 mg Q6H PO PRN for pain Continue home medications as previously prescribed. Follow ups: - Dr. Aden within 1 week. Please call office to confirm appointment. Diet: ADA Activity: Weight bearing as tolerated Followup: NONE,NONE [Primary Care Provider] -
[2024-03-24 09:29] VITALS: BP 161/73; TEMP 97.3
[2024-03-24] MEDS: POTASSIUM CL SA 10 MEQ TAB PO ONE (09:51)
[2024-03-24] MEDS: Magnesium Sulfate 2gm IVPB 2 G/50 ML BAG IV ONE (09:51)
--- NOTE | 2024-03-24 13:14 | EKG ---
Test Date: 2024-03-19 Test Time: 10:59:22 Blog Writer: LEXII MEASUREMENT RESULTS: Intervals: Rate: 105 NE: 192 QRSD: 130 QT: 368 QTc: 486 [place]: P: 59 NE: 192 QRS: -73 T: 86 INTERPRETIVE STATEMENTS: Sinus tachycardia Right bundle branch block Left anterior fascicular block Bifascicular block Left ventricular hypertrophy with repolarization abnormality Abnormal ECG Compared to ECG 02/10/2024 14:39:55 No significant changes Electronically Signed On 03-24-24 13:00:57 CDT by Giorgio Whitt
== END 2024-03-24 11:15 | disposition home health service (06) | DRG 638 ==
LOC: ER 10:16 → ERHOLD 12:54 → 2ND 13:28
PROVIDERS: ADMIT Hospitalist; ATTEND Hospitalist
DX: E11.628 Type 2 diabetes mellitus with other skin complications (principal); L03.116 Cellulitis of left lower limb; E11.65 Type 2 diabetes mellitus with hyperglycemia; E11.51 Type 2 diabetes mellitus with diabetic peripheral angiopathy without gangrene; E11.40 Type 2 diabetes mellitus with diabetic neuropathy, unspecified; I10 Essential (primary) hypertension; I48.91 Unspecified atrial fibrillation; M06.9 Rheumatoid arthritis, unspecified; E78.5 Hyperlipidemia, unspecified; B96.89 Other specified bacterial agents as the cause of diseases classified elsewhere; Z88.2 Allergy status to sulfonamides; Z88.1 Allergy status to other antibiotic agents; Z79.4 Long term (current) use of insulin; Z85.3 Personal history of malignant neoplasm of breast; Z79.82 Long term (current) use of aspirin; Z89.422 Acquired absence of other left toe(s); Z87.891 Personal history of nicotine dependence; Z79.899 Other long term (current) drug therapy; Z90.710 Acquired absence of both cervix and uterus
CPT/HCPCS: 36415; 80048; 80053; 80202; 82947; 83605; 83735; 85025; 85610; 87040; 87070; 87077; 87186; 87205; 93005; 99285; J0692; J1650; J1815; J2270; J2405; J2543; J3475; J3590; J7030; J7040; J7050

== ENCOUNTER 2024-05-30 15:45 | Emergency (ER) | payer OTHER ==
--- OUTSIDE RECORDS SUMMARY | 2024-05-30 15:48 | XMS REPORT | Clinical Summary ---
Author Name Unknown Organization [facility] Address [address] [place] [address] Care Team Providers Care [place] Operator Name Role Phone RubenKyel camara OPAL Unavailable [phone] Jessy Munroe MD Unavailable [phone] Andrea Martinez MD Primary Care Provider Susanna Hayes MD Unavailable [phone] Allergies Active Allergy Reactions Criticality Noted Date Comments Sulfa (Sulfonamide Antibiotics) Hives,Rash High 11/26 Medications Medication Sig Dispensed Refills Start Date End Date Status acetaminophen (TYLENOL) 500 mg tablet Take 1 tablet (500 mg) by mouth every 6 (six) hours as needed. Active amLODIPine (NORVASC) 10 mg tablet Take 1 tablet (10 mg) by mouth daily. 10/17/2019 Active aspirin 81 mg cap Take 1 tablet by mouth daily. Active atorvastatin (LIPITOR) 40 mg tablet Take 1 tablet (40 mg) by mouth daily. Active clonazePAM (KlonoPIN) 1 mg tablet Take 1 tablet (1 mg) by mouth 2 (two) times a day as needed. 10/17/2019 Active cloNIDine HCl (CATAPRES) 0.1 mg tablet Take 1 tablet (0.1 mg) by mouth as needed. 10/17/2019 Active clopidogrel (PLAVIX) 75 mg tablet Take 1 tablet (75 mg) by mouth daily. 11/27/2019 Active DULoxetine (CYMBALTA) 60 mg capsule Take 1 capsule (60 mg) by mouth daily. 02/22/2023 Active gabapentin (NEURONTIN) 300 mg capsule Take 1 capsule (300 mg) by mouth at bedtime. Temporarily not taking Active ZestriL 20 mg tablet Take 1 tablet (20 mg) by mouth twice daily. 10/19/2019 Active melatonin 10 mg cap Take 10 mg by mouth at bedtime. 10/17/2019 Active metoprolol succinate (TOPROL XL) 50 mg 24 hr tablet Take 1 tablet (50 mg) by mouth daily. Active predniSONE (DELTASONE) 20 mg tablet Take 1 tablet (20 mg) by mouth daily. 05/30/2023 Active traMADol (ULTRAM) 50 mg tablet Take 1 tablet (50 mg) by mouth every 8 (eight) hours as needed. 04/24/2023 Active valACYclovir (VALTREX) 500 mg tablet Take 1 tablet (500 mg) by mouth daily. 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; Left> 04/18/2023 Cancer Staging:Clinical stage from 03/21/2023:Stage IB(cT2, cN0(f), cM0, G2, ER+, MT+, HER2-) - Unsigned Pathologic:Stage IA(pT1a, pN0, cM0, G2, ER+, MT+, HER2-) - Signed by Andrea Martinez MD on 06/19/2023 Overview: Added automatically from request for surgery [id number] Systemic lupus erythematosus 12/08/2015 Hypertensive disorder 12/08/2015 Emphysema 12/08/2015 Encounters Date Type Department Care Team Description 07/10/2023 Orders Only MD [facility] [address] [address] Valeria Olivera PA Infiltrating duct carcinoma, NOS of lower-inner quadrant of breast <Female; Left> (Primary Dx) 07/06/2023 Documentation MD [facility] [address] [address] Susanna Hayes MD 07/06/2023 Travel 07/05/2023 10:30 AM CDT Clinical Support MD [facility] [address] [place] [id number] Andrea Martinez MD Lawrence, Holly D, RN 07/05/2023 Travel 07/04/2023 Travel 07/03/2023 Travel 07/02/2023 11:15 AM CDT Clinical Support MD [facility] [address] [place] [id number] Mei Simpson MD 07/02/2023 Documentation [facility] [address] [place] [address] [place] [address] Mei Simpson MD 07/02/2023 Travel 06/29/2023 Documentation MD [facility] [address] [place] [id number] Susanna Hayes MD 06/25/2023 6:15 AM CDT - 06/25/2023 11:59 PM CDT Hospital Encounter [facility] [address] [place] [address] [place] [address] Andrea Martinez MD Discharge Disposition: Home 06/22/2023 11:00 AM CDT Consult MD [facility] [address] [place] [id number] Susanna Hayes MD Infiltrating duct carcinoma, NOS of lower-inner quadrant of breast <Female; Left> (Primary Dx) 06/22/2023 Documentation MD [facility] [address] [place] [id number] Susanna Hayes MD 06/22/2023 Documentation MD [facility] [address] [place] [id number] Susanna Hayes MD 06/22/2023 Orders Only MD [facility] [address] [address] Susanna Hayes MD Infiltrating duct carcinoma, NOS of lower-inner quadrant of breast <Female; Left> (Primary Dx) 06/22/2023 Travel 06/19/2023 11:40 AM CDT Office Visit MD [facility] [address] [place] [address] Andrea Martinez MD Malignant neoplasm of lower-inner quadrant of left female breast (Primary Dx) 06/19/2023 11:00 AM CDT NPR [facility] PATIENT ACCESS Andrea Martinez MD 06/19/2023 Travel after 05/31/2023 Surgical History Surgery Date Site/Laterality Comments HYSTERECTOMY [...] Date Smoking Tobacco: Former Cigarettes 4 30 1 969 - 1999 Smokeless Tobacco: Never Tobacco Cessation:Counseling Given: Not [...] Outcome GA Total Labor Labor/2nd/3rd Weight Sex Type Anes PTL Jo A1 A5 Name Clin Term Term Term Comments Menarche: 16 LMP: [...] risk series) 04/01/2021 03/04/2021, 02/11/2021 Influenza Vaccine 07/27/2024 10/17/2019 Care Teams [place] Operator Relationship Specialty Start Date End Date Kyle Godinez PA [address] [place] [address] PCP - External Primary Care Provider Family Practice 04/20/23 Jessy Munroe MD [address] [address] PCP - External Referring Surgical Oncology 04/20/23 [place] [address] [place] [id number] [email or web address] PCP - General Breast Medical Oncology 05/08/23 Susanna Hayes MD [address] [place], [place] [id number] [email or web address] Physician Radiation Oncology 06/22/23
[2024-05-30] MEDS ORDERED: HYDROCODONE/APAP 10/325 TAB ONE (17:15)
--- NOTE | 2024-05-30 17:15 | RAD REPORT ---
EXAM DESCRIPTION: CTSpine Lumbar Wo Con05/30/2024 4:39 pm CLINICAL HISTORY: Back pain status post fall COMPARISON: None TECHNIQUE: Computed axial tomography lumbar spine was obtained with coronal and sagittal reconstruct ion. All CT scans are performed using dose optimization technique as appropriate and may include automated exposure control or mA/KV adjustment according to patient size. FINDINGS: No fracture is seen. No dislocation Spondylosis involves lumbar spine. Small right far lateral disc herniation L1-2 Small left lateral disc herniation L2-3 IMPRESSION: Negative for a lumbar fracture. If patient's symptoms persist MRI would be recommended
--- NOTE | 2024-05-30 17:19 | RAD REPORT ---
EXAM DESCRIPTION: CTThoracic Spine W/o Cont05/30/2024 4:37 pm CLINICAL HISTORY: Back injury with Back pain with status post fall COMPARISON: None TECHNIQUE: Computed axial tomography of thoracic spine was obtained with coronal and sagittal recons truction. All CT scans are performed using dose optimization technique as appropriate and may include automated exposure control or mA/KV adjustment according to patient size. FINDINGS: No fracture is seen. No dislocation is noted. No high-grade stenosis visualized IMPRESSION: Negative for a thoracic fracture If the patient has clinical symptoms to suggest spinal cord pathology then MRI would be recommended.
--- NOTE | 2024-05-30 17:19 | RAD REPORT ---
EXAM DESCRIPTION: CT - Pelvis Wo Cont - 05/30/2024 4:40 pm CLINICAL HISTORY: Pelvic pain status post fall COMPARISON: None. TECHNIQUE: Computed axial tomography of the pelvis was obtained. Coronal and sagittal reconstruction performed All CT scans are performed using dose optimization technique as appropriate and may include automated exposure control or mA/KV adjustment according to patient size. FINDINGS: No fracture is seen involving the pelvis. No significant hip joint effusion. Muscles are normal size and density No subcutaneous contusion IMPRESSION: No pelvic fracture noted
--- NOTE | 2024-05-30 17:49 | EDPHYS ---
Physician Documentation [facility] Name: Bridgett Gotti Age: 74 yrs Sex: Female : 1950 Arrival Date: 05/30/2024 Time: 15:45 Bed 20 Private MD: ED Physician Zhao Madera HPI: 05/30 16:07 This 74 yrs old Female presents to ER via Wheelchair with complaints of Fall Injury. rn 16:07 Details of fall: The patient fell from an upright position. Onset: The symptoms/episode rn began/occurred last night. Associated injuries: The patient sustained upper back injury, injury to the low back. Severity of symptoms: At their worst the symptoms were moderate, in the emergency department the symptoms are unchanged. The patient has not experienced similar symptoms in the past. Patient reports eating strawberries in the bathroom last night, slipped, landed on her buttocks and reports lower back pain and buttock pain. No head injury. No LOC. Denies extremity injury.. Historical: - Allergies: 15:52 Bactrim; ll1 15:52 Sulfa (Sulfonamide Antibiotics); ll1 - PMHx: 15:52 Atrial fibrillation; Back pain; breast cancer (Unknown); Depression; Diabetes - NIDDM; ll1 Enteritis; Hypertension; Lupus; Rheumatoid Arthritis; Sleep Apnea; - PSHx: 15:52 hysterectomy; Left lumpectomy; L foot surgery x 3 (Left lumpectomy); ll1 - Immunization history:: Adult Immunizations up to date. - Infectious Disease History:: Denies. - Social history:: Smoking status: Patient denies any tobacco usage or history of. - Family history:: not pertinent. - Hospitalizations: : No recent hospitalization is reported. ROS: 16:07 Constitutional: Negative for fever, chills, and weight loss, Neck: Negative for injury, rn pain, and swelling, Cardiovascular: Negative for chest pain, palpitations, and edema, Respiratory: Negative for shortness of breath, cough, wheezing, and pleuritic chest pain, Abdomen/GI: Negative for abdominal pain, nausea, vomiting, diarrhea, and constipation, Back: Positive for back pain and injury MS/Extremity: Negative for injury and deformity, Skin: Negative for injury, rash, and discoloration, Neuro: Negative for headache, weakness, numbness, tingling, and seizure, Exam: 16:07 Constitutional: This is a well developed, well nourished patient who is awake, alert, rn and in no acute distress. Head/Face: Normocephalic, atraumatic. Neck: No midline cervical tenderness Cardiovascular: Regular rate and rhythm. No pulse deficits. Respiratory: No increased work of breathing, no retractions or nasal flaring. Abdomen/GI: Soft, nontender Back: Mild tenderness mid thoracic spine and lower lumbar spine. No step-off. MS/ Extremity: Pulses equal, no cyanosis. Neurovascular intact. Full, normal range of motion. Equal circumference. Neuro: Awake and alert, GCS 15 Vital Signs: 15:50 BP 177 / 96; Pulse 87; Resp 18; Temp 98; Pulse Ox 97% on R/A; Weight 82.55 kg; Height 5 ll1 ft. 1 in. ; Pain 10/10; 17:10 BP 160 / 91; Pulse 77; Resp 17; Pulse Ox 99% on R/A; rs5 18:00 BP 155 / 88; Pulse 71; Resp 17; Pulse Ox 99% on R/A; rs5 15:50 Body Mass Index 34.39 (82.55 kg, 154.94 cm) ll1 15:50 Pain Scale: Adult ll1 MDM: 15:47 Patient medically screened. rn 17:46 Differential diagnosis: contusion, fracture, sprain, strain. Data reviewed: vital rn signs, nurses notes, radiologic studies, CT scan, and as a result, I will discharge patient. Counseling: I had a detailed discussion with the patient and/or guardian regarding the historical points, exam findings, and any diagnostic results supporting the discharge/admit diagnosis, radiology results, the need for outpatient follow up, to return to the emergency department if symptoms worsen or persist or if there are any questions or concerns that arise at home. Special discussion: I discussed with the patient/guardian in detail that at this point there is no indication for admission to the hospital. It is understood, however, that if the symptoms persist or worsen the patient needs to return immediately for re-evaluation. ED course: No acute traumatic findings on workup. I have personally reviewed all of the results, including but not limited to imaging deemed necessary to safely discharge this patient at this time. All results given to and printed out for patient. I personally went over all the results with the patient and answered all questions. Patient will follow-up with PCP and or specialist as discussed. Return precautions given and understood.. 05/30 15:52 Order name: CT Thoracic Spine Wo Cont; Complete Time: 17:35 rn 05/30 15:52 Order name: CT Lumbar Spine Wo Con; Complete Time: 17:35 rn 05/30 15:52 Order name: CT Pelvis wo Cont; Complete Time: 17:35 rn Administered Medications: 17:07 Drug: Aline PO 10 mg-325 mg 1 tabs PO once Route: PO; rs5 18:00 Follow up: Response: No adverse reaction rs5 Disposition Summary: 05/30/24 17:48 Discharge Ordered Notes: Location: Home rn Problem: new rn Symptoms: have improved rn Condition: Stable rn Diagnosis - Contusion of lower back and pelvis rn Followup: rn - With: Private Physician - When: As needed - Reason: Recheck today's complaints, Re-evaluation by your physician Discharge Instructions: - Discharge Summary Sheet rn - Contusion rn Forms: - Medication Reconciliation Form rn - Antibiotic disability attorney - Prescription Opioid Use rn - Patient Portal Instructions rn - Leadership Thank You Letter rn Prescriptions: - gabapentin 100 mg Oral capsule - take 1 capsule ORAL route every 12 hours; 14 capsule; Refills: 0, Product rn Selection Permitted - Tramadol 50 mg Oral Tablet - take 1 tablet ORAL route every 8 hours as needed; 12 tablet; Refills: 0, rn Product Selection Permitted Signatures: Dispatcher [employer] EDZhao Gonzáles MD MD rn Lewis, Lynsay, RN RN ll1 Branden Jaramillo RN RN rs5 Corrections: (The following items were deleted from the chart) 15:52 15:52 Spine Lumbar Wo Con+CT.RAD.BRZ ordered. EDMS EDMS 15:52 15:52 Pelvis Wo Cont+CT.RAD.BRZ ordered. EDMS EDMS
--- NOTE | 2024-05-30 17:49 | ER ---
Nurse's Notes [facility] Name: Bridgett Gotti Age: 74 yrs Sex: Female : 1950 Arrival Date: 05/30/2024 Time: 15:45 Bed 20 Private MD: Diagnosis: Contusion of lower back and pelvis Presentation: 05/30 15:50 Chief complaint: Patient states: Slipped in bathroom last night. Landed on buttocks. No ll1 head injury or LOC. Pain to buttocks and back since. Coronavirus screen: Client denies travel out of the [place] in the last 14 days. At this time, the client does not indicate any symptoms associated with coronavirus-19. Ebola Screen: Patient denies travel to an Ebola-affected area in the 21 days before illness onset. Initial Sepsis Screen: Does the patient meet any 2 criteria? No. Patient's initial sepsis screen is negative. Does the patient have a suspected source of infection? No. Patient's initial sepsis screen is negative. Risk Assessment: Do you want to hurt yourself or someone else? Patient reports no desire to harm self or others. Onset of symptoms was May 29, 2024. 15:50 Method Of Arrival: Wheelchair ll1 15:50 Acuity: LASHONDA 3 ll1 Triage Assessment: 15:52 General: Appears uncomfortable, Behavior is calm, cooperative, appropriate for age. ll1 Pain: Complains of pain in buttocks Quality of pain is described as aching. Musculoskeletal: Reports pain in buttocks and back. Injury Description: Bruise. Historical: - Allergies: 15:52 Bactrim; ll1 15:52 Sulfa (Sulfonamide Antibiotics); ll1 - PMHx: 15:52 Atrial fibrillation; Back pain; breast cancer (Unknown); Depression; Diabetes - NIDDM; ll1 Enteritis; Hypertension; Lupus; Rheumatoid Arthritis; Sleep Apnea; - PSHx: 15:52 hysterectomy; Left lumpectomy; L foot surgery x 3 (Left lumpectomy); ll1 - Immunization history:: Adult Immunizations up to date. - Infectious Disease History:: Denies. - Social history:: Smoking status: Patient denies any tobacco usage or history of. - Family history:: not pertinent. - Hospitalizations: : No recent hospitalization is reported. Screenin:50 [facility] ED Fall Risk Assessment (Adult) History of falling in the last 3 months, rs5 including since admission Yes- single mechanical fall (1 pt) Confusion or Disorientation No (0 pts) Intoxicated or Sedated No (0 pts) Impaired Gait No (0 pts) Mobility Assist Device Used No (0 pt) Altered Elimination No (0 pt) Score/Fall Risk Level 0 - 2 = Low Risk Oriented to surroundings, Maintained a safe environment. 15:50 Abuse screen: Denies threats or abuse. Nutritional screening: No deficits noted. rs5 Tuberculosis screening: No symptoms or risk factors identified. Assessment: 15:50 General: Appears in no apparent distress. uncomfortable, Behavior is calm, cooperative. rs5 Pain: Complains of pain in buttocks Pain does not radiate. Pain currently is 8 out of 10 on a pain scale. Quality of pain is described as aching, Is continuous. Neuro: Level of Consciousness is awake, alert, obeys commands, Oriented to person, place, time, situation. Cardiovascular: Patient's skin is warm and dry. Respiratory: Airway is patent Respiratory effort is even, unlabored, Respiratory pattern is regular, symmetrical. GI: Abdomen is round non-distended, Abd is soft and non tender X 4 quads. : No signs and/or symptoms were reported regarding the genitourinary system. EENT: No signs and/or symptoms were reported regarding the EENT system. Derm: Skin is intact, Skin is pink, warm \T\ dry. Musculoskeletal: Range of motion: limited in lower back. 17:12 Reassessment: Patient and/or family updated on plan of care and expected duration. Pain rs5 level reassessed. Patient is alert, oriented x 3, equal unlabored respirations, skin warm/dry/pink. 18:00 Reassessment: Patient and/or family updated on plan of care and expected duration. Pain rs5 level reassessed. Patient is alert, oriented x 3, equal unlabored respirations, skin warm/dry/pink. Patient states feeling better. Vital Signs: 15:50 BP 177 / 96; Pulse 87; Resp 18; Temp 98; Pulse Ox 97% on R/A; Weight 82.55 kg; Height 5 ll1 ft. 1 in. ; Pain 10/10; 17:10 BP 160 / 91; Pulse 77; Resp 17; Pulse Ox 99% on R/A; rs5 18:00 BP 155 / 88; Pulse 71; Resp 17; Pulse Ox 99% on R/A; rs5 15:50 Body Mass Index 34.39 (82.55 kg, 154.94 cm) ll1 15:50 Pain Scale: Adult ll1 ED Course: 15:46 Patient arrived in ED. im 15:47 Zhao Madera MD is Attending Physician. rn 15:50 Patient has correct armband on for positive identification. Bed in low position. Call rs5 light in reach. Side rails up X2. 15:50 No provider procedures requiring assistance completed. rs5 15:52 Triage completed. ll1 15:52 Arm band placed on Patient placed in an exam room, on a stretcher. ll1 16:14 Branden Jaramillo, RN is Primary Nurse. rs5 16:35 CT Thoracic Spine Wo Cont In Process Unspecified. EDMS 16:36 CT Lumbar Spine Wo Con In Process Unspecified. EDMS 16:38 CT Pelvis wo Cont In Process Unspecified. EDMS 18:00 IV discontinued, intact, bleeding controlled, No redness/swelling at site. Pressure rs5 dressing applied. Administered Medications: 17:07 Drug: [place] PO 10 mg-325 mg 1 tabs PO once Route: PO; rs5 18:00 Follow up: Response: No adverse reaction rs5 Medication: 17:12 VIS not applicable for this client. rs5 Outcome: 17:48 Discharge ordered by . rn 18:00 Discharged to home via wheelchair, with family, rs5 18:00 Condition: stable 18:00 Discharge instructions given to patient, family, Instructed on discharge instructions, follow up and referral plans. medication usage, Demonstrated understanding of instructions, follow-up care, medications, Prescriptions given X 2, 18:04 Patient left the ED. rs5 Signatures: Dispatcher [employer] EDMS Zhao Madera MD MD rn Lewis, Lynsay RN RN 1 Branden Jaramillo, ILAN RN rs5 Elisa Busby Corrections: (The following items were deleted from the chart) 15:53 15:50 Resp 18bpm; 82.55 kg; Height 5 ft. 1 in.; BMI: 34.3; Pain 10/10, Adult; ll1 ll1 18:40 18:20 Patient left the ED. rs5 rs5
[2024-05-30 18:27] VITALS: BP 160/91; TEMP 98; O2SAT 99
== END 2024-05-30 18:20 | disposition home or self-care (01) ==
LOC: ER 15:45
DX: S30.0XXA Contusion of lower back and pelvis, initial encounter (principal)
CPT/HCPCS: 72128; 72131; 72192; 99283

== ENCOUNTER 2024-07-16 11:40 | Inpatient (IN) | payer OTHER ==
--- OUTSIDE RECORDS SUMMARY | 2024-07-16 11:43 | XMS REPORT | Clinical Summary ---
Author Name Unknown Organization [facility] [place] Address [address] [place] [address] Care Team Providers Care Almond Blancher Hand Name Role Phone RubenKyle camara OPAL Unavailable [phone] Jessy Munroe MD Unavailable [phone] Andrea Martinez MD Primary Care Provider Susanna Hayes MD Unavailable [phone] Allergies Active Allergy Reactions Criticality Noted Date [...] from 03/21/2023:Stage IB(cT2, cN0(f), cM0, G2, ER+, CA+, HER2-) - Unsigned Pathologic:Stage IA(pT1a, pN0, cM0, G2, ER+, CA+, HER2-) - Signed by Andrea Martinez MD on 06/19/2023 Overview: Added automatically from request for surgery [id number] Systemic lupus erythematosus 12/08/2015 Hypertensive disorder 12/08/2015 Emphysema 12/08/2015 Surgical History Surgery Date Site/Laterality Comments HYSTERECTOMY [...] Former Cigarettes 4 30 1 969 - 1998 Smokeless Tobacco: Never Tobacco Cessation:Counseling Given: [...] or surgical Fertility Tx: No Breastfeed: No Plan of Treatment Health Maintenance Due Date Last Done Comments Pneumococcal Vaccine: 65+ Ye ars (1 of 2 - PCV) 1958 COVID-19 Vaccine ( season) 07/27/202307/2021, 02/11/2021 Influenza Vaccine 07/27/2024 10/17/2019 Care Teams Almond Blancher Hand Relationship Specialty Start Date End Date Kyle Godinez PA [address] [place] [address] PCP - External Primary Care Provider Family Practice 04/20/23 Jessy Munroe MD [address] [address] PCP - External Referring Surgical Oncology 04/20/23 Andrea Martinez MD [address] [place], [place] [id number] [email or web address] PCP - General Breast Medical Oncology 05/08/23 Susanna Hayes MD [facility] [place], [place] [id number] [email or web address] Physician Radiation Oncology 06/22/23
--- NOTE | 2024-07-16 12:42 | RAD REPORT ---
EXAM DESCRIPTION: RAD - Foot Left 3 View - 07/16/2024 12:31 pm CLINICAL HISTORY: osteo L pinky Pain and swelling COMPARISON: Foot Left 3 View dated 06/04/2024; Foot Left 3 View dated 04/04/2024; Foot Left 3 View wilfredo ed 03/19/2024 FINDINGS: Significant bony erosive changes the fourth and fifth toe to the level of the distal metat arsals of the fourth and fifth. This erosive changes are most compatible with osteomyelitis. Hyperden se material is present in the soft tissues which could be radiopaque foreign body. Large plantar calc aneal spur.
[2024-07-16] MEDS ORDERED: VANCOMYCIN 1 GM/VIAL ONE ×2 (13:59→19:53)
[2024-07-16] MEDS ORDERED: NA CHLORIDE 0.9% 250 ML ONE ×2 (14:00→19:53)
[2024-07-16] MEDS ORDERED: NA CHLORIDE 0.9% 100 ML ONE (14:00)
[2024-07-16] MEDS ORDERED: PIPERACIL/TAZO 3.375 GM VIAL IV ONE (14:00)
[2024-07-16 14:10] LABS: Absolute Eosinophils 0.1 K/uL (0-0.5); Absolute Lymphocytes (CBC) 1.3 K/uL (0.7-4.9); Absolute Monocytes 0.7 K/uL (0.1-1.3); Absolute Neutrophil 2.9 K/uL (1.8-8.0); Basophils % 0.7 % (0-1.3); Eosinophils % 1.8 % (0-4.4); Hematocrit 34.1 % (36.0-45.0); Hemoglobin 11.4 g/dL (12.0-15.0); Lymphocytes % 25.2 % (15.3-44.8); MCH 31.3 pg (27.0-35.0); MCHC 33.6 g/dL (32.0-36.0); MCV 93.2 fL (80-100); MPV 7.9 fL (7.6-11.3); Monocytes % 13.2 % (3.3-12.3); Neutrophils % 59.1 % (41.7-73.7); Nucleated Red Blood Cells % 0.1 % (0-0); Platelets 239 thou/uL (152-406); RBC Red Blood Cell Count 3.65 M/uL (3.86-4.86); Red Cell Distribution Width 14.7 % (12.1-15.2)
[2024-07-16 14:13] LABS: PT Prothrombin Time 11.4 SECONDS (9.4-12.5); PTT, Activated Partial Thromb 45.7 SECONDS (24.3-36.9); Protime INR 1.02
[2024-07-16 14:28] LABS: Albumin 2.7 g/dL (3.4-5.0); Albumin/Globulin Ratio 0.5 (1.1-1.8); Anion Gap 7.4 mEq/L (5.0-15.0); Bilirubin Total 0.6 mg/dL (0.2-1.0); Globulin 5.5 g/dL (2.3-3.5); Potassium 4.4 mEq/L (3.5-5.1); Protein, Total 8.2 g/dL (6.4-8.2)
--- NOTE | 2024-07-16 14:38 | ER ---
Nurse's Notes [facility] Name: Bridgett Gotti Age: 74 yrs Sex: Female : 1950 Arrival Date: 07/16/2024 Time: 11:40 Bed 16 Private MD: Diagnosis: Osteomyelitis, unspecified Presentation: 07/16 12:00 Chief complaint: Patient states: " I had a toe amputated in Dec and now the little toe ph looks infected." States that home health nurse instructed her to come to the ED. Coronavirus screen: Vaccine status: Patient reports receiving the 2nd dose of the covid vaccine. Ebola Screen: No symptoms or risks identified at this time. Initial Sepsis Screen: Does the patient meet any 2 criteria? No. Patient's initial sepsis screen is negative. Does the patient have a suspected source of infection? No. Patient's initial sepsis screen is negative. Risk Assessment: Do you want to hurt yourself or someone else? Patient reports no desire to harm self or others. Onset of symptoms was July 16, 2024. 12:00 Method Of Arrival: Wheelchair ph 12:00 Acuity: LASHONDA 3 ph Triage Assessment: 12:03 General: Appears in no apparent distress. Behavior is calm, cooperative. Pain: ph Complains of pain in left foot. Historical: - Allergies: 12:02 Bactrim; ph 12:02 Sulfa (Sulfonamide Antibiotics); ph - PMHx: 12:02 Atrial fibrillation; Back pain; breast cancer (Unknown); Depression; Diabetes - NIDDM; ph Enteritis; Hypertension; Lupus; Rheumatoid Arthritis; Sleep Apnea; - PSHx: 12:02 hysterectomy; L foot surgery x 3; Left lumpectomy; ph - Immunization history:: Adult Immunizations unknown. - Infectious Disease History:: Denies. - Social history:: Smoking status: Patient reports the use of cigarette tobacco products, smokes one pack cigarettes per day. Screenin:22 [facility] ED Fall Risk Assessment (Adult) History of falling in the last 3 months, kj2 including since admission No falls in past 3 months (0 pts) Confusion or Disorientation No (0 pts) Intoxicated or Sedated No (0 pts) Impaired Gait Yes (1 pt) Mobility Assist Device Used Yes (1 pt) Altered Elimination No (0 pt) Score/Fall Risk Level 0 - 2 = Low Risk. Abuse screen: Denies threats or abuse. Denies injuries from another. Nutritional screening: No deficits noted. Tuberculosis screening: No symptoms or risk factors identified. Assessment: 13:18 General: Appears in no apparent distress. uncomfortable, Behavior is calm, cooperative. kj2 Pain: Complains of pain in left foot Pain currently is 10 out of 10 on a pain scale. Neuro: Level of Consciousness is awake, alert, obeys commands, Oriented to person, place, time, situation. Cardiovascular: Capillary refill < 3 seconds. Respiratory: Airway is patent. GI: No deficits noted. : No deficits noted. 15:21 Reassessment: Patient appears in no apparent distress at this time. Patient and/or 2 family updated on plan of care and expected duration. Pain level reassessed. Patient is alert, oriented x 3, equal unlabored respirations, skin warm/dry/pink. 15:43 Reassessment: Dr Baron notified of blood pressure. kj2 17:22 Reassessment: Dr Baron notified of blood pressure. kj2 18:50 Reassessment: Patient appears in no apparent distress at this time. Patient and/or cm10 family updated on plan of care and expected duration. Pain level reassessed. Patient is alert, oriented x 3, equal unlabored respirations, skin warm/dry/pink. Vital Signs: 12:04 BP 198 / 108; Pulse 98; Resp 18; Temp 98.9; Pulse Ox 98% on R/A; ph 12:04 ph 13:30 BP 194 / 123; Pulse 88; Resp 20; Pulse Ox 100% on R/A; Weight 83.91 kg; Height 5 ft. 1 kj2 in. ; 15:10 BP 204 / 137; Pulse 84; Resp 18; Temp 97.9; Pulse Ox 98% on R/A; kj2 17:08 BP 237 / 121; Pulse 92; Resp 20; Temp 97.8; Pulse Ox 99% on R/A; cm10 17:30 BP 137 / 71; Pulse 90; Resp 16; Pulse Ox 95% ; cm10 17:45 BP 131 / 62; Pulse 87; Resp 16; Pulse Ox 98% ; cm10 18:00 BP 117 / 57; Pulse 89; Resp 16; Pulse Ox 95% ; cm10 18:50 BP 113 / 54; cm10 18:50 Pulse 94; Pulse Ox 95% on R/A; cm10 19:15 BP 108 / 69; Pulse 96; Resp 19; Temp 98.3; Pulse Ox 96% on R/A; Pain 3/10; rg5 13:30 Body Mass Index 34.96 (83.91 kg, 154.94 cm) kj2 19:15 Pain Scale: Adult rg5 12:04 did not take morning BP medications ph ED Course: 11:46 Patient arrived in ED. mg5 11:47 Moisés Baron MD is Attending Physician. ec2 12:02 Triage completed. ph 12:03 Arm band placed on Patient placed in waiting room, Patient notified of wait time. ph 12:33 Foot Left 3 View XRAY In Process Unspecified. EDMS 13:17 Temi Ennis, ILAN is Primary Nurse. kj2 14:15 Blood Culture Adult (2) Sent. kj2 14:15 CBC with Diff Sent. kj2 14:15 CMP Sent. kj2 14:15 Lactate w/ 2H reflex if indic. Sent. kj2 14:15 Inserted saline lock: 20 gauge in right antecubital area, using aseptic technique. kj2 Blood collected. Flushed with 10 mL NS. 14:37 Noel Blanc is Hospitalizing Provider. ec2 15:22 Patient has correct armband on for positive identification. Bed in low position. Call kj2 light in reach. Adult w/ patient. Provided Education on: call light, fall precautions. 15:23 No provider procedures requiring assistance completed. kj2 17:17 717 CM met with patient and granddaughter at the bedside in the ED exam room. Patient ane identified by name and . Demographic sheet confirmed. Patient states she lives at home in a single story home with her granddaughter Lainey.Mrs. Gotti states prior to admission, she perform ADLs independently.Patient report having HH with [facility]. She also report going to [facility]. No home oxygen or other DME at this time. Patient's preferred discharge plan is to return home and continue services with [facility]. No MPOA in place at this time. Patient states Lainey will transport her home upon discharge. CM team will continue to follow and coordinate care. 1736 CM responded to request for preliminary update from [facility] via [employer]. 19:12 Report given to ILAN Mark. cm10 19:15 Resting quietly. Appears restless. rg5 19:15 Awaiting bed assignment. rg5 21:57 Patient admitted, IV remains in place. intact, No redness/swelling at site. rg5 Administered Medications: 14:13 Drug: Piperacillin-Tazobactam IVPB 3.375 grams IVPB once over 60 mins; (mix in NS 100 kj2 mL) Route: IVPB; Infused Over: 60 mins; Site: right antecubital; 15:15 Follow up: Response: No adverse reaction; IV Status: Completed infusion; IV Intake: kj2 100ml 15:19 Drug: vancoMYCIN IVPB 1 grams IVPB once over 2 hrs Route: IVPB; Infused Over: 2 hrs; kj2 Site: right antecubital; 18:16 Follow up: Response: No adverse reaction; IV Status: Completed infusion; IV Intake: cm10 250ml 15:32 Drug: morphine IVP or IV 4 mg IVP once over 4 mins Route: IVP; Infused Over: 4 mins; kj2 Site: right antecubital; 17:33 Follow up: Response: No adverse reaction; Pain is decreased kj2 15:38 Drug: Ondansetron IVP 4 mg IVP once; over 2 minutes Route: IVP; Site: right antecubital;kj2 16:00 Follow up: Response: No adverse reaction kj2 17:32 Drug: Labetalol IV 20 mg IV at bolus once over 2 mins Route: IV; Rate: bolus; Infused kj2 Over: 2 mins; Site: right antecubital; 18:00 Follow up: Response: No adverse reaction; IV Status: Completed infusion; IV Intake: 4ml cm10 Medication: 15:22 VIS not applicable for this client. kj2 Intake: 15:15 IV: 100ml; Total: 100ml. kj2 18:00 IV: 4ml; Total: 104ml. cm10 18:16 IV: 250ml; Total: 354ml. cm10 Outcome: 14:37 Decision to Hospitalize by Provider. ec2 19:15 Admitted to ER Hold. Please see [facility] for further documentation. rg5 19:15 Condition: stable 22:05 Patient left the ED. rg5 Signatures: Dispatcher [employer] EDMildred Singh RN RN Cecilia Finch RN RN cm10 Radha Matt mg5 Moisés Baron MD MD ec2 Jas Morales RN RN rg5 Temi Ennis RN RN kj2 Samina Santacruz RN RN ane Corrections: (The following items were deleted from the chart) 18:49 17:20 BP 237 / 121; Pulse 92bpm; Resp 20bpm; Pulse Ox 99% RA; Temp 97.8F; kj2 cm10
--- NOTE | 2024-07-16 14:38 | EDPHYS ---
Physician Documentation [facility] Name: Bridgett Gotti Age: 74 yrs Sex: Female : 1950 Arrival Date: 07/16/2024 Time: 11:40 Bed 16 Private MD: ED Physician Moisés Baron HPI: 07/16 12:08 This 74 yrs old Female presents to ER via Wheelchair with complaints of Toe ec2 Infection. 12:08 Patient arrives today for evaluation of a left pinky toe erythema and drainage. Patient ec2 reports that she has previous amputations with previous infections and was concerned that she has an infection now. Complaining of drainage, has surrounding redness, no fevers, no chills, no nausea or vomiting. History of hypertension, has not taken her hypertensive medications. Historical: - Allergies: 12:02 Bactrim; ph 12:02 Sulfa (Sulfonamide Antibiotics); ph - PMHx: 12:02 Atrial fibrillation; Back pain; breast cancer (Unknown); Depression; Diabetes - NIDDM; ph Enteritis; Hypertension; Lupus; Rheumatoid Arthritis; Sleep Apnea; - PSHx: 12:02 hysterectomy; L foot surgery x 3; Left lumpectomy; ph - Immunization history:: Adult Immunizations unknown. - Infectious Disease History:: Denies. - Social history:: Smoking status: Patient reports the use of cigarette tobacco products, smokes one pack cigarettes per day. ROS: 12:08 Constitutional: as per hpi ec2 Exam: 12:08 Constitutional: GEN: NAD Head: atraumatic Eyes: EOMI Ears: External ears are ec2 normal. CV: regular rate LUNGS: no respiratory distress ABD: non-distended SKIN: Left pinky toe with erythema, drainage MSK: no evidence of trauma Vital Signs: 12:04 BP 198 / 108; Pulse 98; Resp 18; Temp 98.9; Pulse Ox 98% on R/A; ph 12:04 ph 13:30 BP 194 / 123; Pulse 88; Resp 20; Pulse Ox 100% on R/A; Weight 83.91 kg; Height 5 ft. 1 kj2 in. ; 15:10 BP 204 / 137; Pulse 84; Resp 18; Temp 97.9; Pulse Ox 98% on R/A; kj2 17:08 BP 237 / 121; Pulse 92; Resp 20; Temp 97.8; Pulse Ox 99% on R/A; cm10 17:30 BP 137 / 71; Pulse 90; Resp 16; Pulse Ox 95% ; cm10 17:45 BP 131 / 62; Pulse 87; Resp 16; Pulse Ox 98% ; cm10 18:00 BP 117 / 57; Pulse 89; Resp 16; Pulse Ox 95% ; cm10 18:50 BP 113 / 54; cm10 18:50 Pulse 94; Pulse Ox 95% on R/A; cm10 19:15 BP 108 / 69; Pulse 96; Resp 19; Temp 98.3; Pulse Ox 96% on R/A; Pain 3/10; rg5 13:30 Body Mass Index 34.96 (83.91 kg, 154.94 cm) kj2 19:15 Pain Scale: Adult rg5 12:04 did not take morning BP medications ph MDM: 11:47 Patient medically screened. ec2 12:08 Data reviewed: vital signs. ED course: Patient arrives today for evaluation of a left ec2 pinky toe issue. Examination remarkable for skin findings as above. Will obtain lab work, radiograph, empirically treat for toe infection. Differential includes cellulitis, osteomyelitis.. 14:35 ED course: CBC is reassuring, metabolic profile reassuring, lactate within normal ec2 ranges. Will admit for osteomyelitis.. 15:20 ED course: EKG independently reviewed and interpreted by me, shows normal sinus rhythm, ec2 rate of 87, no acute ST segment elevations, bifascicular block noted, intervals otherwise nonactionable.. 07/16 12:06 Order name: Blood Culture Adult (2) ec2 07/16 12:06 Order name: CBC with Diff; Complete Time: 14:35 ec2 07/16 12:06 Order name: CMP; Complete Time: 14:35 ec2 07/16 12:06 Order name: Lactate w/ 2H reflex if indic.; Complete Time: 14:35 ec2 07/16 12:06 Order name: Protime (+inr); Complete Time: 14:35 ec2 07/16 12:06 Order name: Ptt, Activated; Complete Time: 14:35 ec2 07/16 17:09 Order name: Urinalysis w/ reflexes EDMS 07/16 17:09 Order name: Basic Metabolic Panel EDMS 07/16 17:09 Order name: Basic Metabolic Panel EDMS 07/16 17:09 Order name: Basic Metabolic Panel EDMS 07/16 17:09 Order name: Basic Metabolic Panel EDMS 07/16 17:09 Order name: Basic Metabolic Panel EDMS 07/16 17:09 Order name: Basic Metabolic Panel EDMS 07/16 17:09 Order name: CBC with Automated Diff EDMS 07/16 17:09 Order name: CBC with Automated Diff EDMS 07/16 17:09 Order name: CBC with Automated Diff EDMS 07/16 17:09 Order name: CBC with Automated Diff EDMS 07/16 17:09 Order name: CBC with Automated Diff EDMS 07/16 17:09 Order name: CBC with Automated Diff EDMS 07/16 17:09 Order name: Magnesium EDMS 07/16 17:09 Order name: Magnesium EDMS 07/16 17:09 Order name: Magnesium EDMS 07/16 17:09 Order name: Magnesium EDMS 07/16 17:09 Order name: Magnesium EDMS 07/16 17:09 Order name: Magnesium EDMS 07/16 17:09 Order name: Phosphorus EDMS 07/16 17:09 Order name: Phosphorus EDMS 07/16 17:09 Order name: Phosphorus EDMS 07/16 17:09 Order name: Phosphorus EDMS 07/16 17:09 Order name: Phosphorus EDMS 07/16 17:09 Order name: Phosphorus EDMS 07/16 21:53 Order name: Glucose, Ancillary Testing EDMS 07/16 12:07 Order name: Foot Left 3 View XRAY; Complete Time: 12:43 ec2 07/16 12:06 Order name: EKG; Complete Time: 12:06 ec2 07/16 17:09 Order name: CONS Physician Consult EDMS 07/16 12:06 Order name: Accucheck; Complete Time: 15:41 ec2 07/16 12:06 Order name: Cardiac monitoring; Complete Time: 15:20 ec2 07/16 12:06 Order name: EKG - Nurse/Tech; Complete Time: 15:20 ec2 07/16 12:06 Order name: IV Saline Lock - Large Bore; Complete Time: 14:13 ec2 07/16 12:06 Order name: Labs collected and sent; Complete Time: 14:53 ec2 07/16 12:06 Order name: O2 Per Protocol; Complete Time: 15:20 ec2 07/16 12:06 Order name: O2 Sat Monitoring; Complete Time: 15:20 ec2 07/16 12:06 Order name: Vital Signs; Complete Time: 15:20 ec2 Administered Medications: 14:13 Drug: Piperacillin-Tazobactam IVPB 3.375 grams IVPB once over 60 mins; (mix in NS 100 kj2 mL) Route: IVPB; Infused Over: 60 mins; Site: right antecubital; 15:15 Follow up: Response: No adverse reaction; IV Status: Completed infusion; IV Intake: kj2 100ml 15:19 Drug: vancoMYCIN IVPB 1 grams IVPB once over 2 hrs Route: IVPB; Infused Over: 2 hrs; kj2 Site: right antecubital; 18:16 Follow up: Response: No adverse reaction; IV Status: Completed infusion; IV Intake: cm10 250ml 15:32 Drug: morphine IVP or IV 4 mg IVP once over 4 mins Route: IVP; Infused Over: 4 mins; kj2 Site: right antecubital; 17:33 Follow up: Response: No adverse reaction; Pain is decreased kj2 15:38 Drug: Ondansetron IVP 4 mg IVP once; over 2 minutes Route: IVP; Site: right antecubital;kj2 16:00 Follow up: Response: No adverse reaction kj2 17:32 Drug: Labetalol IV 20 mg IV at bolus once over 2 mins Route: IV; Rate: bolus; Infused kj2 Over: 2 mins; Site: right antecubital; 18:00 Follow up: Response: No adverse reaction; IV Status: Completed infusion; IV Intake: 4ml cm10 Disposition Summary: 07/16/24 14:37 Hospitalization Ordered Notes: Hospitalization Status: Inpatient Admission ec2 Provider: Noel Blanc ec2 Condition: Stable ec2 Problem: an ongoing problem ec2 Symptoms: are unchanged ec2 Bed/Room Type: Standard ec2 Location: Telemetry/MedSurg (Inpatient)(07/16/24 21:05) rv1 Room Assignment: 223(07/16/24 21:05) rv1 Diagnosis - Osteomyelitis, unspecified ec2 Forms: - Medication Reconciliation Form ec2 - SBAR form ec2 - Leadership Thank You Letter ec2 Signatures: Dispatcher [employer] Mildred Cowart RN Nabila Torres ph rv1 Cecilia Finch RN RN cm10 Moisés Baron MD MD ec2 Temi Ennis RN RN kj2 Corrections: (The following items were deleted from the chart) 17:38 14:37 Telemetry/MedSurg (Inpatient) ec2 cm10 17:38 14:37 ec2 cm10 21:05 17:38 [facility] ER HOLD cm10 rv1 21:05 17:38 ERHOLD- cm10 rv1
[2024-07-16] MEDS ORDERED: ONDANSETRON 4 MG/2 ML VIAL ONE (15:31)
[2024-07-16] MEDS ORDERED: MORPHINE 4 MG/ML SYR ONE (15:32)
[2024-07-16] MEDS ORDERED: ACETAMINOPHEN 500 MG TAB PO PRN (17:03)
[2024-07-16] MEDS ORDERED: VANCOMYCIN 1 GM in NA CHLORIDE 0.9% 250 ML IVPB SCH (17:10)
[2024-07-16] MEDS ORDERED: LABETALOL 20 MG/4ML SYRINGE IV ONE (17:26)
[2024-07-16] MEDS: AMLODIPINE 10 MG TAB PO SCH (18:36)
[2024-07-16] MEDS ORDERED: HOME MED 1 EA UNK (Melatonin [Melatonin] 10 MG Capsule) PO PRN (18:36)
[2024-07-16] MEDS ORDERED: MELATONIN 5 MG TABLET PO PRN (18:47)
[2024-07-16] MEDS ORDERED: NA CHLORIDE 0.9% 1,000 ML ONE (19:10)
[2024-07-16] MEDS ORDERED: CLINDAMYCIN 600MG/D5W 50 ML IV ONE (19:10)
[2024-07-16] MEDS: CLINDAMYCIN 600MG/D5W 50 ML IV SCH (19:16)
[2024-07-16] MEDS: NA CHLORIDE 0.9% 1,000 ML IV SCH (19:16)
[2024-07-16] MEDS: VANCOMYCIN 1 GM in NA CHLORIDE 0.9% 250 ML IVPB ONE (19:50)
--- NOTE | 2024-07-16 20:32 | P.HP ---
Certification for Inpatient Patient admitted to: Inpatient With expected LOS: >2 Midnights Practitioner: I am a practitioner with admitting privileges, knowledge of patient current condition, hospital course, and medical plan of care. Services: Services provided to patient in accordance with Admission requirements found in Title 42 Section 412.3 of the Code of Federal Regulations Patient History Date of Service: 07/16/24 Reason for admission: Ostemylitis History of Present Illness: Bridgett Gotti is a 74 year old female with Pmhx Atrial fibrillation, Back pain, breast cancer (Unknown), Depression, Diabetes - NIDDM, Enteritis, Hypertension, Lupus, Rheumatoid Arthritis, Sleep Apnea who presents to the ED with chief complaint of nonhealing wound the left foot fifth toe. Bridgett reports seeing Dr. Aden for wound care to her left foot. She reports her toe looks infected with drainage, redness. She has a history of amputations to her left foot and feels this fifith toe needs to be amputated as well. She has pain to her entire left foot. Initial vitalsBP 198 / 108; Pulse 98; Resp 18; Temp 98.9; Pulse Ox 98% on R/A Laboratory evaluation sodium 134, serum glucose 186, ALK phosphate 164, H&H 11.4/34.1, platelets 239 Left foot xray reports "Significant bony erosive changes the fourth and fifth toe to the level of the distal metatarsals of the fourth and fifth. This erosive changes are most compatible with osteomyelitis. Hyperdense material is present in the soft tissues which could be radiopaque foreign body. Large plantar calcaneal spur." Bridgett will be admitted to hospitalist service for further evaluation and treatment, Dr. Aden consulted Allergies doxycycline Allergy (Severe, Verified 04/04/24 23:26) Nausea/Vomiting Sulfa (Sulfonamide Antibiotics) Allergy (Severe, Verified 04/04/24 23:26) Hives sulfamethoxazole [From Bactrim] Allergy (Severe, Verified 04/04/24 23:26) Hives trimethoprim [From Bactrim] Allergy (Severe, Verified 04/04/24 23:26) Hives Home Medications: Amlodipine [Norvasc*] 10 mg PO DAILY 12/17/19 Duloxetine HCl [Cymbalta] 30 mg PO BEDTIME 12/17/19 Lisinopril [Zestril] 20 mg PO DAILY 12/17/19 Melatonin 10 mg PO BEDTIME PRN 12/17/19 Metoprolol Tartrate [Lopressor] 50 mg PO DAILY 12/17/19 clonazePAM [Klonopin*] 1 mg PO TIDP PRN 12/17/19 Aspirin [Aspirin EC 81 MG] 81 mg PO DAILY #30 tablet. 01/21/20 Magnesium Oxide [Mag 0X*] 400 mg PO BID 5 Days #10 tab 04/10/24 Hydrocodone 5/APAP 325 [[place] 5/325*] 1 tab PO Q8H PRN #10 tab 06/11/24 - Past Medical/Surgical History Diabetic: Yes -: HTN -: Diabetes mellitus type 2 -: Lupus -: Rheumatoid arthritis -: CAD -: Depression with anxiety -: Former smoker -: Claustrophobia -: PAD -: hyperlipidemia -: sleep apnea -: breast cancer -: -: Hysterectomy -: Tonsillectomy -: Incision and drainage of thumb -: Bladder Suspension -: Left third toe amputation -: left lumpectomy Psychosocial/ Personal History: Patient lives at home - Family History Mother -: Diabetes, Cancer Notes: uterine cancer Father -: Cancer Notes: cancer of kidney, skin, and lung Brother -: Heart disease, Cancer Notes: Brother 1. "heart problems" Brother 2. cancer - nonhogkin lymphoma Sister -: Cancer Notes: skin cancer - Social History Smoking Status: Former smoker Alcohol use: Yes CD- Drugs: No Caffeine use: No Review of Systems Musculoskeletal: Foot Pain (left) Physical Examination - Vital Signs Blood Pressure: 113/54 Pulse: 97 - Physical Exam General: Alert, In no apparent distress, Oriented x3 HEENT: Atraumatic, Normocephalic, PERRLA Neck: Supple, 2+ carotid pulse no bruit Respiratory: Clear to auscultation bilaterally, Normal air movement Cardiovascular: Normal pulses, Regular rate/rhythm, Normal S1 S2 Capillary refill: <2 Seconds Gastrointestinal: Normal bowel sounds, Soft and benign, Distended (obese) Musculoskeletal: No clubbing, Other (left foot toe amputation, fifth toe infection) Integumentary: Skin breakdown (left foot), Erythema (left foot), Warmth (left foot) Neurological: Normal speech, Normal tone - Studies Laboratory Data (last 24 hrs) 07/16/24 07/16/24 07/16/24 13:42 13:42 13:42 WBC 5.00 Hgb 11.4 L Hct 34.1 L Plt Count 239 PT 11.4 INR 1.02 APTT 45.7 H Sodium 134 L Potassium 4.4 BUN 12 Creatinine 0.74 Glucose 186 H Total Bilirubin 0.6 AST 27 ALT 21 Alkaline Phosphatase 164 H Assessment and Plan - Plan Assessment and plan Diabetic foot wound to left foot suspect osteomyelitis -Left foot xray reports "Significant bony erosive changes the fourth and fifth toe to the level of the distal metatarsals of the fourth and fifth. This erosive changes are most compatible with osteomyelitis. Hyperdense material is present in the soft tissues which could be radiopaque foreign body. Large plantar calcaneal spur." -Vancomycin and clindamycin -IV fluids -Consult Dr. Aden -Pain control -Consult wound care Diabetes - NIDDM -Serum glucose 186 -Accu-Chek with sliding scale insulin Atrial fibrillation Back pain breast cancer (Unknown), Depression Enteritis Hypertension Lupus Rheumatoid Arthritis Sleep Apnea -Continue home medication -Continuous telemetry -Follow-up outpatient DVT PPx heparin Full code LOS 2 to 3 days Discharge Plan: Home Plan to discharge in: 48 Hours - Advance Directives Does patient have a Living Will: No Does patient have a Durable POA for Healthcare: No
[2024-07-16] MEDS: MORPHINE 2 MG/ML SYR IV PRN (21:10)
[2024-07-16] MEDS ORDERED: MORPHINE 2 MG/ML SYR ONE (21:17)
[2024-07-16] MEDS: ACETAMINOPHEN 325 MG TABLET PO PRN (21:45)
[2024-07-16] MEDS ORDERED: ACETAMINOPHEN 325 MG TABLET ONE (21:48)
[2024-07-16] MEDS: INSULIN REGULAR (HUMAN) 100 UNIT/ML SQ SCH (23:35)
[2024-07-16] MEDS: DULOXETINE 30 MG CAP PO SCH (23:35)
[2024-07-16] MEDS: HYDROCODONE/APAP 7.5/325 MG TAB PO PRN (23:36)
[2024-07-17] MEDS: HEPARIN 5000 UNIT/ML 1 ML VIAL SQ SCH (00:51)
[2024-07-17 02:53] VITALS: BMI 34.9
[2024-07-17 07:20] LABS: Absolute Basophils 0.1 K/uL (0-0.5); Absolute Eosinophils 0.2 K/uL (0-0.5); Absolute Lymphocytes (CBC) 0.6 K/uL (0.7-4.9); Absolute Monocytes 0.8 K/uL (0.1-1.3); Absolute Neutrophil 5.4 K/uL (1.8-8.0); Eosinophils % 2.3 % (0-4.4); Hematocrit 30.6 % (36.0-45.0); Hemoglobin 10.2 g/dL (12.0-15.0); Lymphocytes % 7.9 % (15.3-44.8); MCH 31.7 pg (27.0-35.0); MCHC 33.4 g/dL (32.0-36.0); MCV 94.7 fL (80-100); MPV 8.1 fL (7.6-11.3); Neutrophils % 77.8 % (41.7-73.7); Nucleated Red Blood Cells % 0.1 % (0-0); Platelets 203 thou/uL (152-406); RBC Red Blood Cell Count 3.23 M/uL (3.86-4.86)
[2024-07-17 07:30] LABS: Anion Gap 13.6 mEq/L (5.0-15.0); Magnesium 1.1 mg/dL (1.6-2.4); Phosphorus 4.6 mg/dL (2.5-4.9); Potassium 4.6 mEq/L (3.5-5.1)
[2024-07-17] MEDS: VANCOMYCIN 1.5 GM in NA CHLORIDE 0.9% 500 ML IVPB SCH (08:00)
[2024-07-17] MEDS ORDERED: HOME MED 1 EA UNK (Metoprolol Tartrate [Lopressor] 100 MG Tablet) PO SCH (09:00)
[2024-07-17] MEDS: CEFEPIME 1 GM in NA CHLORIDE 0.9% 100 ML IV SCH (10:40)
[2024-07-17] MEDS: METOPROLOL TAR 50 MG TAB PO SCH (10:41)
--- NOTE | 2024-07-17 17:31 | P.PN ---
Date of Service: 07/17/24 Subjective Awake and c/o left foot pain Febrile OVN NAD ROS 10 point ROS as noted above, otherwise negative Physical Exam General: Awake, Alert, and Oriented x3, Febrile HEENT: Atraumatic, Normocephalic, PERRLA Neck: Supple, 2+ carotid pulse no bruit Respiratory: Clear to auscultation bilaterally, Normal air movement, on RA Cardiovascular: NSR, Normal S1 S2, no edema Capillary refill: <2 Seconds Gastrointestinal: Normal active bowel sounds, Soft and benign on palpation, Distended (obese) Musculoskeletal: No clubbing, Other (left foot toe amputation, fifth toe infection) Integumentary: Skin breakdown (left foot), Erythema (left foot), Warmth (left foot) Neurological: Normal speech, Normal tone Vitals Reviewed Problem list Diabetic foot wound to left foot suspect osteomyelitis Diabetes - NIDDM LAST Atrial fibrillation Back pain breast cancer (Unknown) Depression Enteritis Hypertension Lupus Rheumatoid Arthritis Sleep Apnea Assessment and Plan Diabetic foot wound to left foot suspect osteomyelitis Febrile -Left foot xray reports "Significant bony erosive changes the fourth and fifth toe to the level of the distal metatarsals of the fourth and fifth. This erosive changes are most compatible with osteomyelitis. Hyperdense material is present in the soft tissues which could be radiopaque foreign body. Large plantar calcaneal spur." -Continue Vancomycin and add cefepime (07/17), stopped Cleocin -Continue IV fluids -Consult Dr. Aden -Pain control -Consult wound care Diabetes - NIDDM -Serum glucose 204 -Accu-Chek with sliding scale insulin LAST -BUN/creatinine 20/1.74, GFR 31 -Continue IV fluids -Pharmacy to adjust Vancomycin Atrial fibrillation Back pain breast cancer (Unknown) Depression Enteritis Hypertension Lupus Rheumatoid Arthritis Sleep Apnea -Continue home medication -Continuous telemetry -Follow-up outpatient DVT PPx heparin Full code LOS 2 to 3 days <Sanna Olsen - Last Filed: 07/17/24 17:48> Patient seen and examined. Plan of care discussed with Ms. Olsen. Infected diabetic foot ulcer Osteomyelitis of left foot phalanxes. History of obstructive sleep apnea. Plan: IV vancomycin and cefepime General Surgery Dr. Aden consulted to evaluate Analgesics as needed. <hank wright - Last Filed: 07/18/24 12:28>
[2024-07-17 17:48] LABS: Specific Gravity 1.013 (1.005-1.030); Sqamous Epithelial <5 /HPF (None Seen); Urine Bacteria <20 /HPF (<20); Urine Bilirubin NEGATIVE (Negative); Urine Blood Negative (Negative); Urine Clarity Extremely Turbid (Clear); Urine Color Yellow (Yellow); Urine Culture Reflex Order REFLEXED; Urine Glucose TRACE (Negative); Urine Ketones NEGATIVE (Negative); Urine Microscopic Reflex YN ORDER UMIC; Urine Nitrite NEGATIVE (Negative); Urine Protein TRACE (Negative); Urine Urobilinogen Normal (Normal); Urine WBC >50 /HPF (<5); Urine pH 5.5 (5.0-7.0)
[2024-07-17] MEDS: Magnesium Sulfate 2gm IVPB 2 G/50 ML BAG IV ONE (18:12)
[2024-07-17] MEDS: MAGNESIUM OXIDE 400 MG TAB PO ONE (19:57)
[2024-07-17] MEDS: ALBUTEROL 2.5 MG/3 ML NEB SOL NEB PRN (23:36)
--- NOTE | 2024-07-18 00:30 | RAD REPORT ---
EXAM DESCRIPTION: RADChest Single View07/17/2024 9:58 pm CLINICAL HISTORY: SOB COMPARISON: Chest Single View dated 06/04/2024; Chest Single View dated 04/04/2024; Chest Single View dated 05/30/2023; Chest Single View dated 04/09/2023 TECHNIQUE: Portable AP view of the chest. FINDINGS: Diffuse mild interstitial prominence . No pneumothorax or effusion. The cardiomediastinal contours are unremarkable. IMPRESSION: Diffuse mild interstitial prominence, may represent mild interstitial edema versus inter stitial pneumonitis.
[2024-07-18 05:39] LABS: Absolute Basophils 0.1 K/uL (0-0.5); Absolute Eosinophils 0.2 K/uL (0-0.5); Absolute Lymphocytes (CBC) 1.2 K/uL (0.7-4.9); Absolute Monocytes 0.6 K/uL (0.1-1.3); Absolute Neutrophil 4.3 K/uL (1.8-8.0); Basophils % 1.1 % (0-1.3); Eosinophils % 3.6 % (0-4.4); Hematocrit 30.7 % (36.0-45.0); Hemoglobin 10.5 g/dL (12.0-15.0); MCH 31.8 pg (27.0-35.0); MCHC 34.1 g/dL (32.0-36.0); MCV 93.4 fL (80-100); MPV 8.9 fL (7.6-11.3); Monocytes % 9.6 % (3.3-12.3); Neutrophils % 66.7 % (41.7-73.7); Platelets 206 thou/uL (152-406); RBC Red Blood Cell Count 3.29 M/uL (3.86-4.86); Red Cell Distribution Width 14.9 % (12.1-15.2)
[2024-07-18 06:33] LABS: SARS-CoV-2 Antigen CONTROL BLUE LINE VIS/BG OK; SARS-CoV-2 Antigen Rapid Res Negative (Negative)
[2024-07-18 07:06] LABS: Magnesium 1.6 mg/dL (1.6-2.4); Phosphorus 3.1 mg/dL (2.5-4.9)
[2024-07-18] MEDS: HYDRALAZINE HCL 20 MG/ML VIAL IV PRN (08:39)
[2024-07-18] MEDS: ALBUTEROL 2.5 MG/3 ML NEB SOL NEB ONE (09:01)
[2024-07-18] MEDS: VANCOMYCIN 1 GM in NA CHLORIDE 0.9% 250 ML IVPB SCH (12:56)
[2024-07-18] MEDS ORDERED: VANCOMYCIN 1.5 GM in NA CHLORIDE 0.9% 500 ML IVPB SCH (13:00)
--- NOTE | 2024-07-18 13:34 | EKG ---
Test Date: 2024-07-16 Test Time: 15:12:33 Director Of Strategic Sales: JAJA MEASUREMENT RESULTS: Intervals: Rate: 87 DE: 212 QRSD: 132 QT: 424 QTc: 510 [place]: P: 67 DE: 212 QRS: -66 T: 89 INTERPRETIVE STATEMENTS: Sinus rhythm with 1st degree AV block Right bundle branch block Left anterior fascicular block Bifascicular block Left ventricular hypertrophy with repolarization abnormality Abnormal ECG Compared to ECG 06/04/2024 17:14:57 First degree AV block now present Left anterior fascicular block now present Bifascicular block now present Atrial premature complex(es) no longer present Left-axis deviation no longer present Electronically Signed On 07-18-24 13:29:06 CDT by Parmjit Meadows
--- NOTE | 2024-07-18 14:55 | P.CNS ---
Date of Consult: 07/18/24 PC: I was asked to see this 74-year-old female who is a patient of mine from the wound care center in regards to her left little toe. HPC: She recently underwent an amputation of her fourth toe for gangrene and she tolerated the procedure well. She had an open wound on that area that we have been treating. She presented back to the ER at this time with that fifth toe showing a deep incision around the base of the actual phalanx itself. There is no purulent drainage to it. There is some necrotic skin around it. However there is no foul smell or odor. PSHx: Previous amputations and wound debridements PMHx: Diabetic Social Hx: Numerous drug allergies listed above Sys R: No cough, wheeze, shortness of breath. Says she has not been confused at home, but seems a bit off today. No chest pain or palpitations. O/E: Awake alert vital signs are HEENT: Negative Chest: Chest movement equal bilaterally Abd: Soft [place]: Left little toe shows a deep outline around the base of it. There is no foul smell or drainage coming from it. There is some necrotic dried out skin on it. Data: X-ray of the foot shows some bony changes, but not solid osteomyelitis. Impression: Wound of the fifth toe on the left foot Plan: Recommended we keep her on some IV antibiotics for a while. She can be discharged home. She can follow-up at the wound care center for localized wound care. When this further delineates we can decide whether a bone scan etc. is necessary. This lady is diabetic, has been known to fracture her toes walking around. She is very reluctant despite numerous warnings and advised to wear shoes to comply.
--- NOTE | 2024-07-18 15:53 | RAD REPORT ---
EXAM DESCRIPTION: RAD - Chest Single View - 07/18/2024 3:44 pm CLINICAL HISTORY: PICC placement COMPARISON: Chest Single View dated 07/17/2024; Chest Single View dated 06/04/2024; Chest Single View dated 04/04/2024; Chest Single View dated 05/30/2023 FINDINGS: Portable chest was obtained following placement of a right upper extremity PICC line. The catheter tip projects over the SVC.
--- NOTE | 2024-07-18 18:57 | P.PN ---
Date of Service: 07/18/24 Subjective Awake and c/o left foot pain Febrile OVN NAD ROS 10 point ROS as noted above, otherwise negative Physical Exam General: AAOx3, Febrile HEENT: Atraumatic, Normocephalic, PERRLA Neck: Supple, 2+ carotid pulse no bruit Respiratory: Clear to auscultation bilaterally, Normal air movement, on 2 LNC Cardiovascular: RRR, Normal S1 S2, no murmur noted Capillary refill: <2 Seconds Gastrointestinal: Normal active bowel sounds, Soft on palpation, Distended (obese) Musculoskeletal: No clubbing, Other (left foot toe amputation, fifth toe infection) Integumentary: Skin breakdown (left foot), Erythema (left foot), Warmth (left foot) Neurological: Normal speech, Normal tone Vitals Reviewed Problem list Infected diabetic foot ulcer Osteomyelitis of left foot phalanxes. Diabetes - NIDDM LAST Atrial fibrillation Back pain breast cancer (Unknown) Depression Enteritis Hypertension Lupus Rheumatoid Arthritis Sleep Apnea Assessment and Plan Infected diabetic foot ulcer Osteomyelitis of left foot phalanxes. Febrile -Left foot xray reports "Significant bony erosive changes the fourth and fifth toe to the level of the distal metatarsals of the fourth and fifth. This erosive changes are most compatible with osteomyelitis. Hyperdense material is present in the soft tissues which could be radiopaque foreign body. Large plantar calcaneal spur." -Continue Vancomycin and cefepime (07/17), stopped Cleocin -Continue IV fluids -Consult Dr. Aden- recommends IV abx course before decision to amputate -Pain control -Consult wound care Diabetes mellitus - NIDDM -Serum glucose 173 -Accu-Chek with sliding scale insulin LAST -BUN/creatinine 21/1.11, GFR 53 -Continue IV fluids -Pharmacy to adjust Vancomycin Atrial fibrillation Back pain breast cancer (Unknown) Depression Enteritis Hypertension Lupus Rheumatoid Arthritis Sleep Apnea -Continue home medication -Continuous telemetry -Follow-up outpatient DVT PPx heparin Full code LOS 2 to 3 days
[2024-07-18] MEDS: Mupirocin NASAL 2 APPL/1 GM TUBE NAS SCH (19:59)
[2024-07-19] MEDS: Meropenem 1,000 MG in NA CHLORIDE 0.9% 100 ML IV SCH (08:49)
[2024-07-19 08:51] LABS: Absolute Eosinophils 0.1 K/uL (0-0.5); Absolute Lymphocytes (CBC) 0.9 K/uL (0.7-4.9); Absolute Monocytes 0.7 K/uL (0.1-1.3); Anion Gap 10.5 mEq/L (5.0-15.0); Basophils % 0.8 % (0-1.3); Hemoglobin 10.7 g/dL (12.0-15.0); Lymphocytes % 16.2 % (15.3-44.8); MCH 31.1 pg (27.0-35.0); MCHC 33.3 g/dL (32.0-36.0); MCV 93.5 fL (80-100); Magnesium 1.2 mg/dL (1.6-2.4); Monocytes % 11.7 % (3.3-12.3); Neutrophils % 69.3 % (41.7-73.7); Nucleated Red Blood Cells % 0.1 % (0-0); Phosphorus 2.8 mg/dL (2.5-4.9); Platelets 212 thou/uL (152-406); Potassium 3.5 mEq/L (3.5-5.1); RBC Red Blood Cell Count 3.42 M/uL (3.86-4.86); Red Cell Distribution Width 14.4 % (12.1-15.2)
[2024-07-19] MEDS: Magnesium Sulfate 2gm IVPB 2 G/50 ML BAG IV ONE (15:19)
--- NOTE | 2024-07-19 16:07 | P.PN ---
Date of Service: 07/19/24 Subjective Breathing better, more relaxed c/o left foot pain ROS 10 point ROS as noted above, otherwise negative Physical Exam General: Awake, alert, and oriented x3, Febrile HEENT: Atraumatic, Normocephalic, PERRLA Neck: Supple, 2+ carotid pulse no bruit Respiratory: Clear to auscultation bilaterally, Normal air movement, on 2 LNC Cardiovascular: NSR, Normal S1 S2, no murmur noted Capillary refill: <2 Seconds Gastrointestinal: Normal active bowel sounds, Soft on palpation, Distended (obese), nontender Musculoskeletal: No clubbing, Other (left foot toe amputation, fifth toe infection) Integumentary: Skin breakdown (left foot), Erythema (left foot), Warmth (left foot) Neurological: Normal speech, Normal tone Vitals Reviewed Problem list Infected diabetic foot ulcer Osteomyelitis of left foot phalanxes Febrile Diabetes - NIDDM LAST Atrial fibrillation Back pain breast cancer (Unknown) Depression Enteritis Hypertension Lupus Rheumatoid Arthritis Sleep Apnea Assessment and Plan Infected diabetic foot ulcer Osteomyelitis of left foot phalanxes Febrile -Left foot xray reports "Significant bony erosive changes the fourth and fifth toe to the level of the distal metatarsals of the fourth and fifth. This erosive changes are most compatible with osteomyelitis. Hyperdense material is present in the soft tissues which could be radiopaque foreign body. Large plantar calcaneal spur." -Continue Vancomycin (07/17) and merrem started (07/19), stopped cefepime -Continue IV fluids -Consult Dr. Aden- wound culture growing Pseudomonas Aeruginosa -Pain control -Consult wound care Diabetes mellitus - NIDDM -Serum glucose 166 -Accu-Chek with sliding scale insulin LAST -BUN/creatinine 16/0.81, GFR 77 -Continue IV fluids -Pharmacy to adjust Vancomycin Atrial fibrillation Back pain breast cancer (Unknown) Depression Enteritis Hypertension Lupus Rheumatoid Arthritis Sleep Apnea -Continue home medication -Continuous telemetry -Follow-up outpatient DVT PPx heparin Full code LOS 2 to 3 days
[2024-07-20] MEDS: Magnesium Sulfate 2gm IVPB 2 G/50 ML BAG IV ONE (03:25)
[2024-07-20 07:23] LABS: Absolute Basophils 0.1 K/uL (0-0.5); Absolute Eosinophils 0.2 K/uL (0-0.5); Absolute Lymphocytes (CBC) 1.1 K/uL (0.7-4.9); Absolute Monocytes 0.7 K/uL (0.1-1.3); Basophils % 1.4 % (0-1.3); Eosinophils % 3.8 % (0-4.4); Hematocrit 32.6 % (36.0-45.0); Hemoglobin 10.7 g/dL (12.0-15.0); Lymphocytes % 21.2 % (15.3-44.8); MCH 30.7 pg (27.0-35.0); MCHC 32.8 g/dL (32.0-36.0); MCV 93.4 fL (80-100); MPV 8.8 fL (7.6-11.3); Monocytes % 13.4 % (3.3-12.3); Neutrophils % 60.2 % (41.7-73.7); Platelets 224 thou/uL (152-406); RBC Red Blood Cell Count 3.49 M/uL (3.86-4.86); Red Cell Distribution Width 14.4 % (12.1-15.2)
[2024-07-20 07:39] LABS: Anion Gap 7.1 mEq/L (5.0-15.0); Magnesium 1.9 mg/dL (1.6-2.4); Phosphorus 2.9 mg/dL (2.5-4.9); Potassium 3.1 mEq/L (3.5-5.1)
[2024-07-20] MEDS: POTASSIUM CL SA 10 MEQ TAB PO ONE (08:12)
--- NOTE | 2024-07-20 19:18 | P.PN ---
Date of Service: 07/20/24 Subjective Awake and ready for discharge Ordering home IV abx c/o left foot pain ROS 10 point ROS as noted above, otherwise negative Physical Exam General: AAO x3, NAD, aFebrile HEENT: Atraumatic, Normocephalic, PERRLA Neck: Supple, 2+ carotid pulse no bruit Respiratory: Clear to auscultation bilaterally, symmetrical chest wall movement, on RA Cardiovascular: NSR, Normal S1 S2, no murmur noted Capillary refill: <2 Seconds Gastrointestinal: Normal active bowel sounds, Soft on palpation, Distended (obese), nontender Musculoskeletal: No clubbing, Other (left foot toe amputation, fifth toe infection), dressing CDI Integumentary: Skin breakdown (left foot), Erythema (left foot), Warmth (left foot) Neurological: Normal speech, Normal tone Vitals Reviewed Problem list Infected diabetic foot ulcer Osteomyelitis of left foot phalanxes Febrile Diabetes - NIDDM LAST Atrial fibrillation Back pain breast cancer (Unknown) Depression Enteritis Hypertension Lupus Rheumatoid Arthritis Sleep Apnea Assessment and Plan Infected diabetic foot ulcer Osteomyelitis of left foot phalanxes Febrile -Left foot xray reports "Significant bony erosive changes the fourth and fifth toe to the level of the distal metatarsals of the fourth and fifth. This erosive changes are most compatible with osteomyelitis. Hyperdense material is present in the soft tissues which could be radiopaque foreign body. Large plantar calcaneal spur." -Continue Vancomycin (07/17- 08/27) and merrem started (07/19-08/29), stopped cefepime -Continue IV fluids -Consult Dr. Aden- wound culture growing Pseudomonas Aeruginosa -Pain control -Consult wound care Diabetes mellitus - NIDDM -Serum glucose 172 -Accu-Chek with sliding scale insulin LAST -BUN/creatinine 14/0.77, GFR 82 -Continue IV fluids -Pharmacy to adjust Vancomycin Atrial fibrillation Back pain breast cancer (Unknown) Depression Enteritis Hypertension Lupus Rheumatoid Arthritis Sleep Apnea -Continue home medication -Continuous telemetry -Follow-up outpatient DVT PPx heparin Full code LOS 2 to 3 days <Sanna Olsen - Last Filed: 07/20/24 19:13> Patient seen and examined, plan of care discussed with Ms. Olsen. Patient seen and evaluated by surgery Dr. Aden will recommend IV antibiotics for osteomyelitis before evaluation for amputation. Patient is clinically stable. Outpatient IV antibiotics ordered, awaiting insurance authorization.. <hank wright - Last Filed: 07/21/24 18:46>
[2024-07-20] MEDS: MAGNESIUM SULFATE 1 gm IVPB 1 GM/100 ML BAG IV ONE (21:59)
[2024-07-21] MEDS: VANCOMYCIN 1 GM in NA CHLORIDE 0.9% 250 ML IVPB SCH (01:46)
[2024-07-21 05:08] LABS: Absolute Basophils 0.1 K/uL (0-0.5); Absolute Eosinophils 0.2 K/uL (0-0.5); Absolute Lymphocytes (CBC) 1.3 K/uL (0.7-4.9); Absolute Monocytes 0.8 K/uL (0.1-1.3); Absolute Neutrophil 2.1 K/uL (1.8-8.0); Basophils % 2.9 % (0-1.3); Eosinophils % 4.7 % (0-4.4); Hemoglobin 11.3 g/dL (12.0-15.0); Lymphocytes % 28.2 % (15.3-44.8); MCH 31.5 pg (27.0-35.0); MCHC 34.1 g/dL (32.0-36.0); MCV 92.4 fL (80-100); MPV 8.9 fL (7.6-11.3); Neutrophils % 46.2 % (41.7-73.7); Nucleated Red Blood Cells % 0.2 % (0-0); Platelets 237 thou/uL (152-406); RBC Red Blood Cell Count 3.57 M/uL (3.86-4.86); Red Cell Distribution Width 14.2 % (12.1-15.2)
[2024-07-21 05:14] LABS: Anion Gap 7.4 mEq/L (5.0-15.0); Magnesium 1.5 mg/dL (1.6-2.4); Phosphorus 2.8 mg/dL (2.5-4.9); Potassium 3.4 mEq/L (3.5-5.1)
[2024-07-21] MEDS: Magnesium Sulfate 2gm IVPB 2 G/50 ML BAG IV ONE (06:02)
[2024-07-21] MEDS: POTASSIUM 25 MEQ EFFERV TAB PO ONE (06:02)
[2024-07-21] MEDS: VANCOMYCIN 1.25 GM in NA CHLORIDE 0.9% 250 ML IVPB SCH (12:11)
[2024-07-21 12:50] LABS: Magnesium 1.6 mg/dL (1.6-2.4); Potassium 3.7 mEq/L (3.5-5.1)
[2024-07-21] MEDS: ALBUTEROL 2.5 MG/3 ML NEB SOL NEB SCH (15:00)
[2024-07-21] MEDS: ACETIC ACID 0.25% IRRIG IRR ONE (16:27)
[2024-07-21] MEDS: MAGNESIUM OXIDE 400 MG TAB PO SCH (16:34)
--- NOTE | 2024-07-21 18:23 | P.PN ---
Date of Service: 07/21/24 Subjective Awake and able to ambulate to the bathroom c/o left foot pain SW setting up home antibiotics, need provider to follow vanc trough, Dr. Norton will see her tomorrow and provide that help Likely discharge in the AM ROS 10 point ROS as noted above, otherwise negative Physical Exam General: AAO x3, NAD, conversing well HEENT: Atraumatic, Normocephalic, PERRLA Neck: Supple, 2+ carotid pulse no bruit Respiratory: Clear to auscultation bilaterally, symmetrical chest wall movement, on RA Cardiovascular: RRR, Normal S1 S2, no murmur noted Capillary refill: <2 Seconds Gastrointestinal: Soft and benign on palpation, Distended (obese), nontender, active bowel sounds Musculoskeletal: No clubbing, Other (left foot toe amputation, fifth toe infection), dressing CDI Integumentary: Skin breakdown (left foot), Erythema (left foot), Warmth (left foot) Neurological: Normal speech, Normal tone Vitals Reviewed Problem list Infected diabetic foot ulcer Osteomyelitis of left foot phalanxes Febrile Diabetes - NIDDM LAST Atrial fibrillation Back pain breast cancer (Unknown) Depression Enteritis Hypertension Lupus Rheumatoid Arthritis Sleep Apnea Assessment and Plan Infected diabetic foot ulcer Osteomyelitis of left foot phalanxes Febrile -Left foot xray reports "Significant bony erosive changes the fourth and fifth toe to the level of the distal metatarsals of the fourth and fifth. This erosive changes are most compatible with osteomyelitis. Hyperdense material is present in the soft tissues which could be radiopaque foreign body. Large plantar calcaneal spur." -Continue Vancomycin (07/17- 08/27) and merrem started (07/19-08/29), stopped cefepime -Continue IV fluids -Dr. Norton consulted to follow vanc trough outpatient -Consult Dr. Aden- wound culture growing Pseudomonas Aeruginosa -Pain control -Consult wound care Diabetes mellitus - NIDDM -Serum glucose 169 -Accu-Chek with sliding scale insulin LAST -BUN/creatinine 13/0.79, GFR 79 -Continue IV fluids -Pharmacy to adjust Vancomycin Atrial fibrillation Back pain breast cancer (Unknown) Depression Enteritis Hypertension Lupus Rheumatoid Arthritis Sleep Apnea -Continue home medication -Continuous telemetry -Follow-up outpatient DVT PPx heparin Full code LOS 2 to 3 days
[2024-07-22] VITALS: O2SAT 97
[2024-07-22 05:40] LABS: Anion Gap 7.4 mEq/L (5.0-15.0); Magnesium 1.5 mg/dL (1.6-2.4); Potassium 3.4 mEq/L (3.5-5.1)
[2024-07-22] MEDS: Magnesium Sulfate 2gm IVPB 2 G/50 ML BAG IV ONE (06:11)
[2024-07-22] MEDS: POTASSIUM 25 MEQ EFFERV TAB PO ONE (06:11)
[2024-07-22 09:00] VITALS: BP 179/88; TEMP 97.7
--- NOTE | 2024-07-22 12:01 | P.CNS ---
Date of Consult: 07/22/24 This is a 74-year-old female known to me from previous admissions patient is coming in with left foot fourth and fifth toe osteomyelitis patient has significant past medical history of atrial fibrillation, back pain, breast cancer, depression, diabetes mellitus hypertension, all lupus, rheumatoid arthritis, sleep apnea coming into the hospital with complaint of nonhealing diabetic foot ulcer to the left foot fifth toe patient denies any headache nausea vomiting chest pain abdominal pain constipation diarrhea she has a PICC line with which she is getting vancomycin and meropenem as patient has previous history of MRSA. Patient at this time is growing Pseudomonas aeruginosa. Patient is being followed by wound care team. Past medical history as per [facility] Social history non-smoker nondrinker Family history noncontributory Acetaminophen (Acetaminophen 500 Mg Tab) 500 mg PO Q4HP PRN PRN Reason: Pain scale 2-4 (Mild) Acetaminophen (Acetaminophen 325 Mg Tablet) 650 mg PO Q4HP PRN PRN Reason: TEMP > 100' F Last Admin: 07/16/24 21:45 Dose: 650 mg Hydrocodone Bitart/Acetaminophen (Hydrocodone/Apap 7.5/325 Mg Tab) 1 tab PO Q4H PRN PRN Reason: Pain scale 8-10 (Severe) Last Admin: 07/21/24 21:42 Dose: 1 tab Albuterol Sulfate (Albuterol 2.5 Mg/3 Ml Neb Jessica) 2.5 mg NEB [id number] [facility] Last Admin: 07/22/24 07:00 Dose: Not Given Amlodipine Besylate (Amlodipine 10 Mg Tab) 10 mg PO DAILY [facility] Last Admin: 07/22/24 08:53 Dose: 10 mg Duloxetine HCl (Duloxetine 30 Mg Cap) 30 mg PO BEDTIME [facility] Last Admin: 07/21/24 20:15 Dose: 30 mg Heparin Sodium (Porcine) (Heparin 5000 Unit/Ml 1 Ml Vial) 5,000 unit SQ Q8HR [facility] Last Admin: 07/22/24 08:53 Dose: 5,000 unit Hydralazine HCl (Hydralazine Hcl 20 Mg/Ml Vial) 10 mg IV Q4HP PRN PRN Reason: Goal to achieve SBP in comment Last Admin: 07/19/24 21:30 Dose: 10 mg Meropenem 1,000 mg/ Sodium (Chloride) 100 mls @ 200 mls/hr IV Q8HR [facility] Last Admin: 07/22/24 08:52 Dose: 100 mls Vancomycin HCl 1.25 gm/ Sodium (Chloride) 250 mls @ 166.667 mls/hr IVPB Q24H [facility]; Protocol Last Admin: 07/22/24 11:28 Dose: Not Given Insulin Human Regular (Insulin Regular (Human) 100 Unit/Ml) 0 unit SQ ACHS [facility]; Protocol Last Admin: 07/22/24 11:23 Dose: Not Given Magnesium Oxide (Magnesium Oxide 400 Mg Tab) 400 mg PO DAILY AT SUPPER [facility] Last Admin: 07/21/24 16:34 Dose: 400 mg Melatonin (Melatonin 5 Mg Tablet) 10 mg PO BEDTIME PRN PRN Reason: INSOMNIA Metoprolol Tartrate (Metoprolol Tar 50 Mg Tab) 50 mg PO DAILY [facility] Last Admin: 07/22/24 08:53 Dose: 50 mg Morphine Sulfate (Morphine 2 Mg/Ml Syr) 2 mg IV Q6H PRN PRN Reason: Pain scale 8-10 (Severe) Last Admin: 07/21/24 16:31 Dose: 2 mg Mupirocin (Mupirocin Nasal 2 Appl/1 Gm Tube) 1 appl DANIEL BID [facility] Stop: 07/23/24 09:01 Last Admin: 07/22/24 08:52 Dose: 1 appl Allergy/AdvReac Type Severity Reaction Status Date / Time doxycycline Allergy Severe Nausea/Vomi Verified 04/04/24 23:26 ting Sulfa (Sulfonamide Allergy Severe Hives Verified 04/04/24 23:26 Antibiotics) sulfamethoxazole Allergy Severe Hives Verified 04/04/24 23:26 [From Bactrim] trimethoprim [From Bactrim] Allergy Severe Hives Verified 04/04/24 23:26 Review of system: 10 point review was performed Physical exam: Patient lying in bed not in any acute cardiopulmonary distress Vital signs Temp Pulse Resp BP Pulse Ox 97.7 F 80 12 179/88 H 98 07/22/24 08:00 07/22/24 08:00 07/22/24 08:00 07/22/24 08:00 07/22/24 08:00 HEENT within normal limits Neck supple, no JVD Heart: S1-S2 regular Abdomen: Soft, bowel sound present Lungs: Basal crackles Extremity: Trace edema left foot wound noted Laboratory Results WBC 5.00 thou/uL (4.3-10.9) 07/16/24 13:42 RBC 3.65 M/uL (3.86-4.86) L 07/16/24 13:42 Hgb 11.4 g/dL (12.0-15.0) L 07/16/24 13:42 Hct 34.1 % (36.0-45.0) L 07/16/24 13:42 MCV 93.2 fL (80-100) 07/16/24 13:42 MCH 31.3 pg (27.0-35.0) 07/16/24 13:42 MCHC 33.6 g/dL (32.0-36.0) 07/16/24 13:42 RDW 14.7 % (12.1-15.2) 07/16/24 13:42 Plt Count 239 thou/uL (152-406) 07/16/24 13:42 MPV 7.9 fL (7.6-11.3) 07/16/24 13:42 Neutrophils % 59.1 % (41.7-73.7) 07/16/24 13:42 Lymphocytes % 25.2 % (15.3-44.8) 07/16/24 13:42 Monocytes % 13.2 % (3.3-12.3) H 07/16/24 13:42 Eosinophils % 1.8 % (0-4.4) 07/16/24 13:42 Basophils % 0.7 % (0-1.3) 07/16/24 13:42 Absolute Neutrophils 2.9 K/uL (1.8-8.0) 07/16/24 13:42 Absolute Lymphocytes 1.3 K/uL (0.7-4.9) 07/16/24 13:42 Absolute Monocytes 0.7 K/uL (0.1-1.3) 07/16/24 13:42 Absolute Eosinophils 0.1 K/uL (0-0.5) 07/16/24 13:42 Absolute Basophils 0.0 K/uL (0-0.5) 07/16/24 13:42 PT 11.4 SECONDS (9.4-12.5) 07/16/24 13:42 INR 1.02 07/16/24 13:42 APTT 45.7 SECONDS (24.3-36.9) H 07/16/24 13:42 Sodium 134 mEq/L (136-145) L 07/16/24 13:42 Potassium 4.4 mEq/L (3.5-5.1) 07/16/24 13:42 Chloride 104 mEq/L (98-107) 07/16/24 13:42 Carbon Dioxide 27 mEq/L (21-32) 07/16/24 13:42 Anion Gap 7.4 mEq/L (5.0-15.0) 07/16/24 13:42 BUN 12 mg/dL (7-18) 07/16/24 13:42 Creatinine 0.74 mg/dL (0.55-1.02) 07/16/24 13:42 Est GFR (CKD-EPI) 86 ml/min (=/>90) L 07/16/24 13:42 Glucose 186 mg/dL (74-106) H 07/16/24 13:42 Lactic Acid 1.9 mmol/L (0.4-2.0) 07/16/24 13:50 Calcium 8.9 mg/dL (8.5-10.1) 07/16/24 13:42 Total Bilirubin 0.6 mg/dL (0.2-1.0) 07/16/24 13:42 AST 27 U/L (15-37) 07/16/24 13:42 ALT 21 U/L (13-56) 07/16/24 13:42 Alkaline Phosphatase 164 U/L (45-117) H 07/16/24 13:42 Serum Total Protein 8.2 g/dL (6.4-8.2) 07/16/24 13:42 Albumin 2.7 g/dL (3.4-5.0) L 07/16/24 13:42 Globulin 5.5 g/dL (2.3-3.5) H 07/16/24 13:42 Albumin/Globulin Ratio 0.5 (1.1-1.8) L 07/16/24 13:42 07/16/24 13:40 Blood - Blood Aerobic Blood Culture - Final No growth in 5 days. 07/16/24 13:40 Blood - Blood Anaerobic Blood Culture - Final No growth in 5 days. 07/16/24 13:50 Blood - Blood Aerobic Blood Culture - Final No growth in 5 days. 07/16/24 13:50 Blood - Blood Anaerobic Blood Culture - Final No growth in 5 days. Microbiology Assessment and plan: This is a 74-year-old female with significant past medical history of diabetes mellitus and diabetic neuropathy coming in with left foot osteomyelitis and diabetic foot ulcer involving fourth and fifth toe patient cultures are growing Pseudomonas aeruginosa. Patient is currently on vancomycin and meropenem because of her history of MRSA in the past we will recommend to continue antibiotic for 6 weeks Monitor blood sugar follow-up on wound care with surgical team Thank you for consult
--- NOTE | 2024-07-22 14:39 | P.DS ---
Admission Date: 07/16/24 Discharge Date: 07/22/24 Disposition: DC HOME/HOME HEALTH CARE Discharge Condition: GOOD Reason for Admission: Ostemylitis Consultations: General SurgeryDr. Aden Brief History of Present Illness: Bridgett Gotti is a 74 year old female with Pmhx Atrial fibrillation, Back pain, breast cancer (Unknown), Depression, Diabetes - NIDDM, Enteritis, Hypertension, Lupus, Rheumatoid Arthritis, Sleep Apnea who presents to the ED with chief complaint of nonhealing wound the left foot fifth toe. Bridgett reports seeing Dr. Aden for wound care to her left foot. She reports her toe looks infected with drainage, redness. She has a history of amputations to her left foot and feels this fifith toe needs to be amputated as well. She has pain to her entire left foot. Initial vitalsBP 198 / 108; Pulse 98; Resp 18; Temp 98.9; Pulse Ox 98% on R/A Laboratory evaluation sodium 134, serum glucose 186, ALK phosphate 164, H&H 11.4/34.1, platelets 239 Left foot xray reports "Significant bony erosive changes the fourth and fifth toe to the level of the distal metatarsals of the fourth and fifth. This erosive changes are most compatible with osteomyelitis. Hyperdense material is present in the soft tissues which could be radiopaque foreign body. Large plantar calcaneal spur." Bridgett will be admitted to hospitalist service for further evaluation and treatment, Dr. Aden consulted Hospital Course: Physical Exam General: AAO x3, NAD, conversing well HEENT: Atraumatic, Normocephalic, PERRLA Neck: Supple, 2+ carotid pulse no bruit Respiratory: Clear to auscultation bilaterally, symmetrical chest wall movement, on RA Cardiovascular: RRR, Normal S1 S2, no murmur noted Capillary refill: <2 Seconds Gastrointestinal: Soft and benign on palpation, Distended (obese), nontender, active bowel sounds Musculoskeletal: No clubbing, Other (left foot toe amputation, fifth toe infection), dressing CDI Integumentary: Skin breakdown (left foot), Erythema (left foot), Warmth (left foot) Neurological: Normal speech, Normal tone Problem list Infected diabetic foot ulcer Osteomyelitis of left foot phalanxes Febrile Diabetes - NIDDM LAST Atrial fibrillation Back pain breast cancer (Unknown) Depression Enteritis Hypertension Lupus Rheumatoid Arthritis Sleep Apnea Patient was admitted to the hospital for infected diabetic foot ulcer, osteomyelitis of the left phalanxes. She was started on IV antibiotics and is currently on vancomycin, meropenem. She will need long-term antibiotics, PICC line was placed. She should continue the vancomycin which was started on 07/17 through 08/27 and the Merrem which was started on 07/19 through 08/29. Outpatient labs and antibiotics have been arranged for with home health/[facility] care. Jordana Durbin NP plans to follow antibiotics/labs. Please continue other medications as previously prescribed Follow-up with your primary care doctor in 1 to 2 weeks Please also follow-up with Dr. Sutherland surgery Vital Signs/Physical Exam: Temp Pulse Resp BP Pulse Ox 97.7 F 80 12 179/88 H 98 07/22/24 08:00 07/22/24 08:00 07/22/24 08:00 07/22/24 08:00 07/22/24 08:00 Laboratory Data at Discharge: WBC 4.60 thou/uL (4.3-10.9) 07/21/24 04:30 Hgb 11.3 g/dL (12.0-15.0) L 07/21/24 04:30 Hct 33.0 % (36.0-45.0) L 07/21/24 04:30 Plt Count 237 thou/uL (152-406) 07/21/24 04:30 PT 11.4 SECONDS (9.4-12.5) 07/16/24 13:42 INR 1.02 07/16/24 13:42 APTT 45.7 SECONDS (24.3-36.9) H 07/16/24 13:42 Sodium 137 mEq/L (136-145) 07/22/24 05:15 Potassium Cancelled 07/22/24 12:00 BUN 11 mg/dL (7-18) 07/22/24 05:15 Creatinine 0.78 mg/dL (0.55-1.02) 07/22/24 05:15 Glucose 176 mg/dL (74-106) H 07/22/24 05:15 Phosphorus 2.8 mg/dL (2.5-4.9) 07/21/24 04:30 Magnesium Cancelled 07/22/24 12:00 Total Bilirubin 0.6 mg/dL (0.2-1.0) 07/16/24 13:42 AST 27 U/L (15-37) 07/16/24 13:42 ALT 21 U/L (13-56) 07/16/24 13:42 Alkaline Phosphatase 164 U/L (45-117) H 07/16/24 13:42 Home Medications: Amlodipine [Norvasc*] 10 mg PO DAILY 12/17/19 Duloxetine HCl [Cymbalta] 30 mg PO BEDTIME 12/17/19 Lisinopril [Zestril] 20 mg PO DAILY 12/17/19 Melatonin 10 mg PO BEDTIME PRN 12/17/19 Metoprolol Tartrate [Lopressor] 50 mg PO DAILY 12/17/19 clonazePAM [Klonopin*] 1 mg PO TIDP PRN 12/17/19 Aspirin [Aspirin EC 81 MG] 81 mg PO DAILY #30 tablet. 01/21/20 Magnesium Oxide [Mag 0X*] 400 mg PO BID 5 Days #10 tab 04/10/24 Hydrocodone 5/APAP 325 [Drumore 5/325*] 1 tab PO Q8H PRN #10 tab 06/11/24 traMADol HCL [Ultram*] 50 mg PO Q6H PRN #20 tab 07/22/24 New Medications: traMADol HCL [Ultram*] 50 mg PO Q6H PRN #20 tab PRN Reason: Pain Physician Discharge Instructions: Patient was admitted to the hospital for infected diabetic foot ulcer, osteomyelitis of the left phalanxes. She was started on IV antibiotics and is currently on vancomycin, meropenem. She will need long-term antibiotics, PICC line was placed. She should continue the vancomycin which was started on 07/17 through 08/27 and the Merrem which was started on 07/19 through 08/29. Outpatient labs and antibiotics have been arranged for with home health/[facility] care. Jordana Durbin NP plans to follow antibiotics/labs. Please continue other medications as previously prescribed Follow-up with your primary care doctor in 1 to 2 weeks Please also follow-up with Dr. Sutherland surgery Diet: ADA Activity: Touch-down Followup: Aubrey Aden MD [ACTIVE - CAN ADMIT] - 1 Week Kyle Godinez PAC [Primary Care Provider] - Jordana Durbin FNP [OUTSIDE PHYSICIAN] - 2-3 Days Time spent managing pt's care (in minutes): 36
== END 2024-07-22 12:48 | disposition home health service (06) | DRG 638 ==
LOC: ER 11:40 → ERHOLD 17:03 → 2ND 21:28
PROVIDERS: ADMIT Internal Medicine; ATTEND Hospitalist
PROC: 02HV33Z Insertion of Infusion Device into Superior Vena Cava, Percutaneous Approach (ICD-10-PCS; principal; 2024-07-18)
DX: E11.69 Type 2 diabetes mellitus with other specified complication (principal); M86.172 Other acute osteomyelitis, left ankle and foot; N17.9 Acute kidney failure, unspecified; E11.621 Type 2 diabetes mellitus with foot ulcer; L97.529 Non-pressure chronic ulcer of other part of left foot with unspecified severity; E11.40 Type 2 diabetes mellitus with diabetic neuropathy, unspecified; I48.91 Unspecified atrial fibrillation; I10 Essential (primary) hypertension; M06.9 Rheumatoid arthritis, unspecified; F32.A Depression, unspecified; G47.33 Obstructive sleep apnea (adult) (pediatric); M32.9 Systemic lupus erythematosus, unspecified; K52.9 Noninfective gastroenteritis and colitis, unspecified; I25.10 Atherosclerotic heart disease of native coronary artery without angina pectoris; C50.919 Malignant neoplasm of unspecified site of unspecified female breast; F17.210 Nicotine dependence, cigarettes, uncomplicated; B96.5 Pseudomonas (aeruginosa) (mallei) (pseudomallei) as the cause of diseases classified elsewhere; Z88.2 Allergy status to sulfonamides; Z88.1 Allergy status to other antibiotic agents; Z79.82 Long term (current) use of aspirin; Z11.52 Encounter for screening for COVID-19; Z86.14 Personal history of Methicillin resistant Staphylococcus aureus infection; Z79.899 Other long term (current) drug therapy; Z90.710 Acquired absence of both cervix and uterus; Z89.422 Acquired absence of other left toe(s)
CPT/HCPCS: 36415; 71045; 80048; 80053; 80202; 81001; 82947; 83605; 83735; 84100; 84132; 85025; 85610; 85730; 87040; 87070; 87077; 87086; 87088; 87186; 87205; 87811; 93005; 94640; 96365; 96366; 96367; 96368; 96375; 97161; 99285; J0360; J0692; J1644; J2185; J2270; J2405; J2543; J3475; J7030; J7040; J7050; J7613

== ENCOUNTER 2024-07-26 10:13 | Emergency (ER) | payer OTHER ==
--- OUTSIDE RECORDS SUMMARY | 2024-07-26 10:17 | XMS REPORT | Clinical Summary ---
Author Name Unknown Organization [facility] Address [address] [place] [address] Care Team Providers Care Plaster Model And [employer] Maker Name Role Phone RubenKyle camara OPAL Unavailable [phone] Jessy Munroe MD Unavailable [phone] Andrea Martinez MD Primary Care Provider Susanna Hayes MD Unavailable [phone] Allergies Active Allergy Reactions Criticality Noted Date [...] from 03/21/2023:Stage IB(cT2, cN0(f), cM0, G2, ER+, IN+, HER2-) - Unsigned Pathologic:Stage IA(pT1a, pN0, cM0, G2, ER+, IN+, HER2-) - Signed by Andrea Martinez MD on 06/19/2023 Overview: Added automatically from request for surgery [id number] Systemic lupus erythematosus 12/08/2015 Hypertensive disorder 12/08/2015 [...] 02/11/2021 Influenza Vaccine 07/27/2024 10/17/2019 Care Teams Plaster Model And Mold Maker Relationship Specialty Start Date End Date Kyle Godinez PA [address] [place] [address] PCP - External Primary Care Provider Family Practice 04/20/23 Jessy Munroe MD [address] [address] PCP - External Referring Surgical Oncology 04/20/23 Andrea Martinez MD [address] [place], [place] [id number] [email or web address] PCP - General Breast Medical Oncology 05/08/23 Susanna Hayes MD [facility] [place], [place] [id number] [email or web address] Physician Radiation Oncology 06/22/23
[2024-07-26] MEDS ORDERED: ALTEPLASE 2 MG/VIAL IV ONE (10:28)
[2024-07-26] MEDS ORDERED: WATER FOR INJ,STERILE 10 ML ONE (10:41)
--- NOTE | 2024-07-26 12:09 | ER ---
Nurse's Notes [facility] Name: Bridgett Gotti Age: 74 yrs Sex: Female : 1950 Arrival Date: 07/26/2024 Time: 10:13 Bed 15 Private MD: Diagnosis: Encounter for attention to PICC line Presentation: 07/26 10:24 Chief complaint: Patient states: her home health nurse visited this morning and ap3 informed her that her PICC line was clogged. patient reports that neither access to her PICC are accessible at this time. patient is currently on vanc Q 24 and Merem Q 12. Coronavirus screen: At this time, the client does not indicate any symptoms associated with coronavirus-19. Ebola Screen: No symptoms or risks identified at this time. Initial Sepsis Screen: Does the patient meet any 2 criteria? No. Patient's initial sepsis screen is negative. Does the patient have a suspected source of infection? No. Patient's initial sepsis screen is negative. Risk Assessment: Do you want to hurt yourself or someone else? Patient reports no desire to harm self or others. Onset of symptoms is unknown. 10:24 Method Of Arrival: Ambulatory ap3 10:24 Acuity: LASHONDA 4 ap3 Triage Assessment: 10:27 General: Appears in no apparent distress. Behavior is calm, cooperative, appropriate ap3 for age. Pain: Denies pain. Neuro: Level of Consciousness is awake, alert, obeys commands, Oriented to person, place, time, situation. Cardiovascular: Patient's skin is warm and dry. Respiratory: Airway is patent Respiratory effort is even, unlabored, Respiratory pattern is regular, symmetrical. Derm: PICC line in place to right upper arm. Historical: - Allergies: 10:26 Bactrim; ap3 10:26 Sulfa (Sulfonamide Antibiotics); ap3 10:26 Doxycycline; ap3 - PMHx: 10:26 Atrial fibrillation; Back pain; breast cancer (Unknown); Depression; Diabetes - NIDDM; ap3 Enteritis; Hypertension; Lupus; Rheumatoid Arthritis; Sleep Apnea; - PSHx: 10:26 hysterectomy; L foot surgery x 3; Left lumpectomy; ap3 - Immunization history:: Client reports receiving the 2nd dose of the Covid vaccine, Flu vaccine is up to date. - Infectious Disease History:: Denies. - Social history:: Smoking status: Patient denies any tobacco usage or history of. Screenin:28 Abuse screen: Denies threats or abuse. Nutritional screening: No deficits noted. ap3 Tuberculosis screening: No symptoms or risk factors identified. 12:29 [facility] ED Fall Risk Assessment (Adult) History of falling in the last 3 months, db including since admission No falls in past 3 months (0 pts) Confusion or Disorientation No (0 pts) Intoxicated or Sedated No (0 pts) Impaired Gait No (0 pts) Mobility Assist Device Used No (0 pt) Altered Elimination No (0 pt) Score/Fall Risk Level 0 - 2 = Low Risk Oriented to surroundings, Maintained a safe environment. Assessment: 10:50 Reassessment: Patient appears in no apparent distress at this time. Patient and/or db family updated on plan of care and expected duration. Pain level reassessed. Patient is alert, oriented x 3, equal unlabored respirations, skin warm/dry/pink. General: Appears in no apparent distress. comfortable, Behavior is calm, cooperative. Neuro: Level of Consciousness is awake, alert, obeys commands, Oriented to person, place, time, situation. Respiratory: Airway is patent Respiratory effort is even, unlabored, Respiratory pattern is regular, symmetrical. 10:51 Reassessment: PT MEDICATION ADMINISTERED. PT INSTRUCTED WILL WAIT TO REMOVE MEDICATION db AND FLUSH LINE. 12:00 Reassessment: Patient appears in no apparent distress at this time. Patient and/or db family updated on plan of care and expected duration. Pain level reassessed. Patient is alert, oriented x 3, equal unlabored respirations, skin warm/dry/pink. Vital Signs: 10:24 BP 170 / 66; Pulse 73; Resp 17; Temp 97.4; Pulse Ox 100% ; Weight 83.91 kg; Height 5 ap3 ft. 1 in. ; 12:00 BP 168 / 68; Pulse 72; Resp 18; Pulse Ox 100% on R/A; db 10:24 Body Mass Index 34.96 (83.91 kg, 154.94 cm) ap3 ED Course: 10:16 Patient arrived in ED. mg5 10:18 [facility]den [facility]C [facility] kb 10:18 Ko Alvarez MD is Attending Physician. kb 10:26 Triage completed. ap3 10:28 Arm band placed on right wrist. ap3 12:28 Marta Barnhart, RN is Primary Nurse. db 12:29 Patient has correct armband on for positive identification. Call light in reach. Side db rails up X 1. Provided Education on: DISCHARGE. Pulse ox on. NIBP on. 12:29 No provider procedures requiring assistance completed. Patient did not have IV access db during this emergency room visit. Administered Medications: 10:45 Drug: Cathflo Activase IV Thrombolytics 2 mg IV Thrombolytics once; into each catheter db lumen, may repeat once Route: IV Thrombolytics; 12:00 Follow up: Response: No adverse reaction db Medication: 12:29 VIS not applicable for this client. db Outcome: 12:08 Discharge ordered by . slick 12:29 Discharged to home ambulatory, db 12:29 Condition: stable 12:29 Discharge instructions given to patient, Instructed on discharge instructions, follow up and referral plans. 12:32 Patient left the ED. db Signatures: Tete Oden, BESSY OROZCO-Caroline Nichole RN RN ap3 Marta Barnhart, RN RN db Radha Matt mg5 Corrections: (The following items were deleted from the chart) 10:27 10:24 Chief complaint: Patient states: her home health nurse visited this morning and ap3 informed her that her PICC line was clogged. patient reports that neither access to her PICC are accessible at this time ap3 12:31 12:29 BP 168 / 68; Pulse 72bpm; Resp 18bpm; Pulse Ox 100% RA; db db
--- NOTE | 2024-07-26 12:09 | EDPHYS ---
Physician Documentation [facility] Name: Bridgett Gotti Age: 74 yrs Sex: Female : 1950 Arrival Date: 07/26/2024 Time: 10:13 Bed 15 Private MD: ED Physician Ko Alvarez HPI: 07/26 11:17 This 74 yrs old Female presents to ER via Ambulatory with complaints of Picc Line kb Problem. 11:17 Pt is a 74 year old female who has a PICC in right upper extremity for vancomycin and kb merem infusions. States one of the ports was clogged yesterday morning and both are clogged this morning. Denies any symptoms. . Historical: - Allergies: 10:26 Bactrim; ap3 10:26 Sulfa (Sulfonamide Antibiotics); ap3 10:26 Doxycycline; ap3 - PMHx: 10:26 Atrial fibrillation; Back pain; breast cancer (Unknown); Depression; Diabetes - NIDDM; ap3 Enteritis; Hypertension; Lupus; Rheumatoid Arthritis; Sleep Apnea; - PSHx: 10:26 hysterectomy; L foot surgery x 3; Left lumpectomy; ap3 - Immunization history:: Client reports receiving the 2nd dose of the Covid vaccine, Flu vaccine is up to date. - Infectious Disease History:: Denies. - Social history:: Smoking status: Patient denies any tobacco usage or history of. ROS: 11:16 Constitutional: As per HPI kb Exam: 11:16 Constitutional: This is a well developed, well nourished patient who is awake, alert, kb and in no acute distress. Head/Face: Normocephalic, atraumatic. ENT: Moist Mucous membranes Cardiovascular: Regular rate Respiratory: Respirations even and unlabored. No increased work of breathing. Talking in full sentences Skin: Warm, dry with normal turgor. Normal color. MS/ Extremity: Pulses equal, no cyanosis. Neurovascular intact. Full, normal range of motion. Neuro: Awake and alert, GCS 15, oriented to person, place, time, and situation. Moves all extremities. Normal gait. Vital Signs: 10:24 BP 170 / 66; Pulse 73; Resp 17; Temp 97.4; Pulse Ox 100% ; Weight 83.91 kg; Height 5 ap3 ft. 1 in. ; 12:00 BP 168 / 68; Pulse 72; Resp 18; Pulse Ox 100% on R/A; db 10:24 Body Mass Index 34.96 (83.91 kg, 154.94 cm) ap3 MDM: 10:18 Patient medically screened. kb 12:16 Differential diagnosis: PICC line malfunction. Data reviewed: vital signs, nurses kb notes. Counseling: I had a detailed discussion with the patient and/or guardian regarding the historical points, exam findings, and any diagnostic results supporting the discharge/admit diagnosis, the need for outpatient follow up, a family practitioner, to return to the emergency department if symptoms worsen or persist or if there are any questions or concerns that arise at home. ED course: Both PICC ports flushing properly after intervention. Administered Medications: 10:45 Drug: Cathflo Activase IV Thrombolytics 2 mg IV Thrombolytics once; into each catheter db lumen, may repeat once Route: IV Thrombolytics; 12:00 Follow up: Response: No adverse reaction db Disposition: 13:17 Co-signature as Attending Physician, Ko Alvarez MD I reviewed the patient's care rt provided by the Advanced Practice Provider and agree with the diagnosis and treatment plan. Disposition Summary: 07/26/24 12:08 Discharge Ordered Notes: Location: Home kb Condition: Stable kb Diagnosis - Encounter for attention to PICC line kb Followup: kb - With: Emergency Department - When: As needed - Reason: Worsening of condition Followup: kb - With: Private Physician - When: 2 - 3 days - Reason: Recheck today's complaints, Continuance of care, Re-evaluation by your physician Discharge Instructions: - Discharge Summary Sheet kb - PICC Home Care Guide kb Forms: - Medication Reconciliation Form kb - Antibiotic Education kb - Prescription Opioid Use kb - Patient Portal Instructions kb - Leadership Thank You Letter kb Signatures: Tete Oden FNP-C FNP-Ckb Prokisch, Amanda, RN RN ap3 Marta Barnhart RN RN db Ko Alvarez MD MD rt
[2024-07-26 13:01] VITALS: TEMP 97.4; O2SAT 100
[2024-07-26 13:03] VITALS: BP 168/68
== END 2024-07-26 12:32 | disposition home or self-care (01) ==
LOC: ER 10:13
PROC: 3C1ZX8Z Irrigation of Indwelling Device using Irrigating Substance, External Approach (ICD-10-PCS; principal; 2024-07-26)
DX: T82.594A Other mechanical complication of infusion catheter, initial encounter (principal)
CPT/HCPCS: 92977; 99291; 36593; J2997

== ENCOUNTER 2024-08-20 13:21 | Emergency (ER) | payer OTHER ==
--- OUTSIDE RECORDS SUMMARY | 2024-08-20 13:24 | XMS REPORT | Clinical Summary ---
Author Name Unknown Organization [facility] Address [address] [place] [address] Care Team Providers Care Planned Giving Officer Name Role Phone RubenKyle camara OPAL Unavailable [phone] Jessy Munroe MD Unavailable [phone] Andrea Martinez MD Primary Care Provider [phone] Susanna Hayes MD Unavailable Allergies Active Allergy Reactions Criticality Noted Date [...] Overview: Added automatically from request for surgery [id number] Systemic lupus erythematosus 12/08/2015 Hypertensive disorder 12/08/2015 [...] of 2 - PCV) 1956 COVID-19 Vaccine (3 season) 07/27/202407/2021, 02/11/2021 Influenza Vaccine (#1) 2024 10/17/2019 Care Teams Planned Giving Officer Relationship Specialty Start Date End Date Kyle Godinez PA [address] [place] [address] PCP - External Primary Care Provider Family Practice 04/20/23 Jessy Munroe MD [address] [address] PCP - External Referring Surgical Oncology 04/20/23 Andrea Martinez MD [address] [place] [id number] [email or web address] PCP - General Breast Medical Oncology 05/08/23 Susanna Hayes MD [address] [place] [address] [id number] Physician Radiation Oncology 06/22/23
--- NOTE | 2024-08-20 13:41 | ER ---
Nurse's Notes [facility] Name: Bridgett Gotti Age: 74 yrs Sex: Female : 1950 Arrival Date: 08/20/2024 Time: 13:21 Bed IW2 Private MD: Diagnosis: Presentation: 08/20 13:37 Chief complaint: Patient states: PT ARRIVED DUE TO PICC LINE IN RIGHT UPPER ARM NOT db FLUSHING. PICC LINE NOW WORKING AND STATES WANTS TO LEAVE. NOTIFIED CHARGE NURSE,. Coronavirus screen: Client denies travel out of the [place] in the last 14 days. At this time, the client does not indicate any symptoms associated with coronavirus-19. Ebola Screen: Patient negative for fever greater than or equal to 101.5 degrees Fahrenheit, and additional compatible Ebola Virus Disease symptoms Patient denies exposure to infectious person. Patient denies travel to an Ebola-affected area in the 21 days before illness onset. No symptoms or risks identified at this time. Initial Sepsis Screen: Does the patient meet any 2 criteria? No. Patient's initial sepsis screen is negative. Does the patient have a suspected source of infection? No. Patient's initial sepsis screen is negative. Risk Assessment: Do you want to hurt yourself or someone else? Patient reports no desire to harm self or others. Onset of symptoms was August 20, 2024. 13:37 Method Of Arrival: Wheelchair db 13:37 Acuity: LASHONDA 5 db Triage Assessment: 13:38 General: Appears in no apparent distress. comfortable, Behavior is calm, cooperative. db Pain: Denies pain. Historical: - Allergies: 13:38 Bactrim; db 13:38 Doxycycline; db 13:38 Sulfa (Sulfonamide Antibiotics); db - PMHx: 13:38 Atrial fibrillation; Back pain; Back pain; breast cancer (Unknown); Diabetes - NIDDM; db Enteritis; Hypertension; Hypertension; Lupus; Rheumatoid Arthritis; Sleep Apnea; Depression; - PSHx: 13:38 hysterectomy; hysterectomy; L foot surgery x 3; Left lumpectomy; db - Immunization history:: Adult Immunizations unknown. - Infectious Disease History:: Denies. - Social history:: Smoking status: Patient/guardian denies using tobacco. Vital Signs: 13:35 bp 13:35 PT DECLINED bp ED Course: 13:23 Patient arrived in ED. mr 13:35 Ashok Nii, MILKING WORKER is PHCP. pm1 13:35 Moisés Baron MD is Attending Physician. pm1 13:38 Triage completed. db 13:38 Arm band placed on. db 13:39 Patient's name was called from ER lobby. Unable to locate patient. Will disposition as db left without being seen by a provider. Administered Medications: No medications were administered Outcome: 13:40 Condition: stable db 13:40 Eloped before seeing physician kb3 13:41 Patient left the ED. db Signatures: Tasia Montiel, Reg Reg mr Nii Pulido, MILKING WORKER MILKING WORKER pm1 Aristeo Arreola, RN RN bp Josefina Razo, RN RN kb3 Marta Barnhart, ILAN RN db Corrections: (The following items were deleted from the chart) 13:39 13:37 Chief complaint: Patient states: PT ARRIVED DUE TO PICC LINE NOT FLUSHING. PICC db LINE NOW WORKING AND STATES WANTS TO LEAVE. NOTIFIED CHARGE NURSE,. db
== END 2024-08-20 13:41 | disposition left against medical advice (07) ==
LOC: ER 13:21
DX: Z02.9 Encounter for administrative examinations, unspecified (principal)
CPT/HCPCS: 99281

== ENCOUNTER 2024-10-12 13:07 | Inpatient (IN) | payer OTHER ==
--- OUTSIDE RECORDS SUMMARY | 2024-10-12 13:10 | XMS REPORT | Clinical Summary ---
Author Name Unknown Organization [facility] Address [address] [place] [address] Care Team Providers Care Shell Trim Operator Name Role Phone Kyle Godinez Unavailable [phone] Jessy Munroe MD Unavailable Andrea Martinez MD Primary Care Provider Susanna Hayes MD Unavailable [phone] Allergies Active Allergy Reactions Criticality Noted Date Comments Sulfa (Sulfonamide Antibiotics) Hives,Rash High 11/26 Medications acetaminophen (TYLENOL) 500 mg tablet Take 1 tablet (500 mg) by mouth every 6 (six) hours as needed. Active amLODIPine (NORVASC) 10 mg tablet Take 1 tablet (10 mg) by mouth daily. 9 Active aspirin 81 mg cap Take 1 tablet by mouth daily. Active atorvastatin (LIPITOR) 40 mg tablet Take 1 tablet (40 mg) by mouth daily. Active clonazePAM (KlonoPIN) 1 mg tablet Take 1 tablet (1 mg) by mouth 2 (two) times a day as needed. 9 Active cloNIDine HCl (CATAPRES) 0.1 mg tablet Take 1 tablet (0.1 mg) by mouth as needed. 9 Active clopidogrel (PLAVIX) 75 mg tablet Take 1 tablet (75 mg) by mouth daily. 0 Active DULoxetine (CYMBALTA) 60 mg capsule Take 1 capsule (60 mg) by mouth daily. 3 Active gabapentin (NEURONTIN) 300 mg capsule Take 1 capsule (300 mg) by mouth at bedtime. Temporarily not taking Active ZestriL 20 mg tablet Take 1 tablet (20 mg) by mouth twice daily. 9 Active melatonin 10 mg cap Take 10 mg by mouth at bedtime. 9 Active metoprolol succinate (TOPROL XL) 50 mg 24 hr tablet Take 1 tablet (50 mg) by mouth daily. Active predniSONE (DELTASONE) 20 mg tablet Take 1 tablet (20 mg) by mouth daily. 3 Active traMADol (ULTRAM) 50 mg tablet Take 1 tablet (50 mg) by mouth every 8 (eight) hours as needed. 3 Active valACYclovir (VALTREX) 500 mg tablet Take 1 tablet (500 mg) by mouth daily. 3 Active Active Problems Problem Noted Date Diagnosed Date Infiltrating duct carcinoma, NOS of lower-inner quadrant of breast <Female; Left> 04/18/2023 Cancer Staging:Clinical stage from 03/21/2023:Stage IB(cT2, cN0(f), cM0, G2, ER+, RI+, HER2-) - Unsigned Pathologic:Stage IA(pT1a, pN0, cM0, G2, ER+, RI+, HER2-) - Signed by Andrea Martinez MD on 06/19/2023 Overview (05/21/2023): Added automatically from request for surgery [id number] Systemic lupus erythematosus 12/08/2015 Hypertensive disorder 12/08/2015 [...] drink = 0.6 oz pur e alcohol) Comments No Sex and Gender Information Value Date Recorded Sex Assigned at Not on file Legal Sex Female 11:40 AM CDT Gender Identity Not on file Sexual Orientation Not on file Obstetrics History Para Term [...] 2 - PCV) 1956 COVID-19 Vaccine (3 - season) 07/27/202407/2021, 02/11/2021 Influenza Vaccine (#1) 2024 10/17/2019 Insurance MEDICARE PART [place] [id number] Care Teams Shell Trim Operator Relationship Specialty Start Date End Date Kyle Godinez PA [address] [place] [address] PCP - External Primary Care Provider Family Practice 04/20/23 Jessy Munroe MD [address] [address] PCP - External Referring Surgical Oncology 04/20/23 Andrea Martinez MD [address] [place] [id number] [email or web address] PCP - General Breast Medical Oncology 05/08/23 Susanna Hayes MD [facility] [place] [address] [email or web address] Physician Radiation Oncology 06/22/23
[2024-10-12] MEDS ORDERED: lisinopriL 20 MG TAB ONE (14:03)
[2024-10-12] MEDS ORDERED: cloNIDine HCL 0.1 MG TAB ONE (14:03)
[2024-10-12] MEDS ORDERED: AMLODIPINE 10 MG TAB ONE (14:03)
[2024-10-12] MEDS ORDERED: DIAZEPAM 5 MG TABLET ONE (14:04)
[2024-10-12 14:26] LABS: Absolute Basophils 0.1 K/uL (0-0.5); Absolute Eosinophils 0.4 K/uL (0-0.5); Absolute Lymphocytes (CBC) 1.3 K/uL (0.7-4.9); Absolute Monocytes 0.6 K/uL (0.1-1.3); Absolute Neutrophil 2.9 K/uL (1.8-8.0); Basophils % 1.4 % (0-1.3); Eosinophils % 8.1 % (0-4.4); Hematocrit 41.8 % (36.0-45.0); Lymphocytes % 24.4 % (15.3-44.8); MCH 31.4 pg (27.0-35.0); MCHC 33.5 g/dL (32.0-36.0); MCV 93.8 fL (80-100); MPV 9.6 fL (7.6-11.3); Monocytes % 11.9 % (3.3-12.3); Neutrophils % 54.2 % (41.7-73.7); Platelets 195 thou/uL (152-406); RBC Red Blood Cell Count 4.46 M/uL (3.86-4.86); Red Cell Distribution Width 14.1 % (12.1-15.2)
[2024-10-12 14:34] LABS: PT Prothrombin Time 10.8 SECONDS (9.4-12.5); PTT, Activated Partial Thromb 45.1 SECONDS (24.3-36.9); Protime INR 0.96
[2024-10-12 14:43] LABS: Albumin 2.9 g/dL (3.4-5.0); Albumin/Globulin Ratio 0.5 (1.1-1.8); Anion Gap 9.2 mEq/L (5.0-15.0); Bilirubin Total 0.7 mg/dL (0.2-1.0); Globulin 5.9 g/dL (2.3-3.5); Potassium 4.2 mEq/L (3.5-5.1); Protein, Total 8.8 g/dL (6.4-8.2)
[2024-10-12 14:48] LABS: Troponin High Sensitivity 100.5 pg/mL (<58.9)
[2024-10-12] MEDS ORDERED: ASPIRIN 81 MG CHEWABLE TABLET ONE (15:08)
--- NOTE | 2024-10-12 16:06 | RAD REPORT ---
EXAM: CT brain without contrast HISTORY: Ataxia COMPARISON: May 2024 TECHNIQUE: Multiple contiguous axial images were obtained and a CT of the brain without contrast.. Sagittal and coronal reconstruction performed. Automated exposure control, adjustment of the mA and/or kV according to patient size, and/or iterative reconstruction. Unless otherwise specified, incidental f indings do not require dedicated imaging follow-up FINDINGS: An intracranial bleed is not seen Ventricles are normal caliber No extra-axial fluid collection noted Small low density within deep white matter bilaterally has the appearance of old infarction. No fluid within the visualized sinuses or mastoids noted. IMPRESSION: No acute intracranial abnormality noted. If the patient's symptoms persist MRI of the brain would be recommended.
[2024-10-12] MEDS ORDERED: MORPHINE 4 MG/ML SYR IV PRN (16:36)
--- NOTE | 2024-10-12 16:38 | ER ---
[facility] Name: Bridgett Gotti Age: 74 yrs Sex: Female : 1950 Arrival Date: 10/12/2024 Time: 13:07 Bed 4 Private MD: Diagnosis: Subsequent non-ST elevation (NSTEMI) myocardial infarction Presentation: 10/12 13:13 Chief complaint: Patient states: DIZZINESS, HISTORY OF VERTIGO STARTED YESTERDAY AND db WAS WORSE YESTERDAY. UNABLE TO STAND WITHOUT FALLING OVER. NORMALLY WALKS INDEPENDENTLY. DID NOT TAKE BP MEDICATIONS TODAY DUE TO UNABLE TO WALK TO GET THEM. LAST TOOK BP MEDICATIONS YESTERDAY. Coronavirus screen: Client denies travel out of the [place] in the last 14 days. At this time, the client does not indicate any symptoms associated with coronavirus-19. Ebola Screen: Patient negative for fever greater than or equal to 101.5 degrees Fahrenheit, and additional compatible Ebola Virus Disease symptoms Patient denies exposure to infectious person. Patient denies travel to an Ebola-affected area in the 21 days before illness onset. No symptoms or risks identified at this time. Initial Sepsis Screen: Does the patient meet any 2 criteria? No. Patient's initial sepsis screen is negative. Does the patient have a suspected source of infection? No. Patient's initial sepsis screen is negative. Risk Assessment: Do you want to hurt yourself or someone else? Patient reports no desire to harm self or others. Onset of symptoms was October 11, 2024. 13:13 Method Of Arrival: Wheelchair db 13:13 Acuity: LASHONDA 2 db Triage Assessment: 13:15 General: Appears in no apparent distress. comfortable, Behavior is calm, cooperative. db Pain: Denies pain. Neuro: Level of Consciousness is awake, alert, obeys commands, Oriented to person, place, time, situation, Reports dizziness. Historical: - Allergies: 13:23 Bactrim; db 13:23 Doxycycline; db 13:23 Sulfa (Sulfonamide Antibiotics); db - PMHx: 13:23 Back pain; Atrial fibrillation; breast cancer (Unknown); Depression; Diabetes - NIDDM; db Enteritis; Hypertension; Lupus; Rheumatoid Arthritis; Sleep Apnea; - PSHx: 13:23 hysterectomy; L foot surgery x 3; Left lumpectomy; db - Immunization history:: Adult Immunizations unknown. - Infectious Disease History:: Denies. - Social history:: Smoking status: unknown. Screenin:12 [facility] ED Fall Risk Assessment (Adult) History of falling in the last 3 months, bp including since admission No falls in past 3 months (0 pts) Confusion or Disorientation No (0 pts) Intoxicated or Sedated No (0 pts) Impaired Gait No (0 pts) Mobility Assist Device Used No (0 pt) Altered Elimination No (0 pt) Score/Fall Risk Level 0 - 2 = Low Risk Oriented to surroundings. Abuse screen: Denies threats or abuse. Denies injuries from another. Nutritional screening: No deficits noted. Tuberculosis screening: No symptoms or risk factors identified. Assessment: 13:15 General: Appears in no apparent distress. comfortable, Behavior is cooperative, bp appropriate for age, anxious. 15:00 Neuro: Level of Consciousness is awake, alert, obeys commands, Oriented to Appropriate bp for age Reports dizziness. 16:00 Reassessment: Patient appears in no apparent distress at this time. Patient is alert, bp oriented x 3, equal unlabored respirations, skin warm/dry/pink. 16:57 Reassessment: Patient appears in no apparent distress at this time. Patient is alert, bp oriented x 3, equal unlabored respirations, skin warm/dry/pink. ADMIT INITIATED. Vital Signs: 13:13 BP 236 / 113; Pulse 75; Resp 18; Temp 98.1; Pulse Ox 97% ; Weight 84 kg; Height 5 ft. 1 bp in. ; 14:40 BP 189 / 85; dr5 16:00 BP 146 / 74; Pulse 64; Resp 16; Pulse Ox 97% ; bp 16:57 BP 131 / 74; Pulse 65; Resp 16; Pulse Ox 97% ; bp 13:13 Body Mass Index 34.99 (84.00 kg, 154.94 cm) bp NIH Stroke Scale Scores: 14:11 NIHSS Score: 0 dr5 ED Course: 13:11 Patient arrived in ED. sj2 13:12 Abdullahi Sutherland FNP-C is PHCP. dr5 13:15 Arm band placed on Patient placed in an exam room. db 13:22 Aristeo Arreola, RN is Primary Nurse. bp 13:23 Triage completed. db 14:00 Initial lab(s) drawn, by me, sent to lab. EKG done, by ED staff, reviewed by Abdullahi DOHERTY. Inserted saline lock: 22 gauge in right antecubital area, using aseptic technique. Blood collected. Flushed with 10 mL NS. 15:02 Zhao Madera MD is Attending Physician. dr5 15:56 Head Brain Wo Cont In Process Unspecified. EDMS 16:12 Patient has correct armband on for positive identification. bp 16:37 Francisco J Del Cid MD is Hospitalizing Provider. dr5 17:01 No provider procedures requiring assistance completed. Patient admitted, IV remains in bp place. 17:03 Provided Education on: N/A. bp Administered Medications: 14:00 Drug: Diazepam PO 5 mg PO once Route: PO; bp 15:05 Follow up: Response: No adverse reaction bp 14:00 Drug: Lisinopril PO 20 mg PO once Route: PO; bp 15:05 Follow up: Response: No adverse reaction bp 14:00 Drug: amLODIPine PO 10 mg PO once Route: PO; bp 15:05 Follow up: Response: No adverse reaction bp 14:00 Drug: cloNIDine PO 0.1 mg PO once Route: PO; bp 15:06 Follow up: Response: No adverse reaction bp 15:11 Drug: Aspirin PO Chewable Tablet 324 mg PO once; 81 mg tablets x 4 Route: PO; bp 15:50 Follow up: Response: No adverse reaction bp Medication: 17:03 VIS not applicable for this client. bp Outcome: 16:37 Decision to Hospitalize by Provider. dr5 17:03 Admitted to Med/surg accompanied by tech, via wheelchair, room 206, with chart, bp 17:03 Condition: stable 17:03 Instructed on the need for admit, 18:15 Patient left the ED. bp NIH Stroke Scale - NIH Stroke Score Date: 10/12/2024 Time: 14:11 Total Score = 0 10. Dysarthria (speech clarity - read or repeat words) - 0(Normal) 11. Extinction and Inattention (visual/tactile/auditory/spatial/personal) - 0(No abnormality) 1a. Level of Consciousness (LOC) - 0(Alert) 1b. Level of Consciousness (LOC) (Month \T\ Age) - 0(Both) 1c. LOC Commands (Open \T\ Closes Eyes/Salesperson Floor Coverings) - 0(Both) 2. Best Gaze (Lateral Gaze Paresis) - 0(Normal) 3. Visual Field Loss - 0(No visual loss) 4. Facial Palsy - 0(Normal) 5a. Left Arm: Motor (10-second hold) - 0(No drift) 5b. Right Arm: Motor (10-second hold) - 0(No drift) 6a. Left Leg: Motor (5-second hold - always test supine) - 0(No drift) 6b. Right Leg: Motor (5-second hold - always test supine) - 0(No drift) 7. Limb Ataxia (finger/nose \T\ heel/hernandez - test with eyes open) - 0(Absent) 8. Sensory Loss (pinprick arms/legs/face) - 0(Normal) 9. Best Language: Aphasia (description/naming/reading) - 0(No aphasia) Initials: dr5 Signatures: Dispatcher [employer] EDAristeo Gibbons RN RN bp Marta Barnhart RN RN db Blanka, Myrna sj2 Abdullahi Sutherland, PRESS FEEDER-C PRESS FEEDER-Cdr5 Corrections: (The following items were deleted from the chart) 17:11 13:13 BP 236 / 113; Pulse 75bpm; Resp 18bpm; Pulse Ox 97%; Temp 98.1F; db bp
--- NOTE | 2024-10-12 16:38 | EDPHYS ---
Physician Documentation [facility] Name: Bridgett Gotti Age: 74 yrs Sex: Female : 1950 Arrival Date: 10/12/2024 Time: 13:07 Bed 4 Private MD: ED Physician Zhao Madera HPI: 10/12 14:11 This 74 yrs old Female presents to ER via Wheelchair with complaints of dr5 Dizziness. 14:11 The patient presents with dizziness, lightheadedness, feeling off balance. Onset: The dr5 symptoms/episode began/occurred Yesterday morning. Context:. Patient is a 74-year-old female with history of chronic hypertension, A-fib, back pain, depression, diabetes coming in with dizziness that started yesterday morning when she woke up. Patient reports that she is having difficulty walking due to dizziness. Patient did not take blood pressure medications yesterday or today. Patient denies nausea, vomiting, diarrhea, fever, chest pain, shortness of breath, or headache. Patient states she has had dizziness like this in the past and was given Valium that resolved. . Historical: - Allergies: 13:23 Bactrim; db 13:23 Doxycycline; db 13:23 Sulfa (Sulfonamide Antibiotics); db - PMHx: 13:23 Back pain; Atrial fibrillation; breast cancer (Unknown); Depression; Diabetes - NIDDM; db Enteritis; Hypertension; Lupus; Rheumatoid Arthritis; Sleep Apnea; - PSHx: 13:23 hysterectomy; L foot surgery x 3; Left lumpectomy; db - Immunization history:: Adult Immunizations unknown. - Infectious Disease History:: Denies. - Social history:: Smoking status: unknown. ROS: 14:11 Constitutional: as per hpi dr5 Exam: 14:11 Constitutional: This is a well developed, well nourished patient who is awake, alert, dr5 and in no acute distress. ENT: Nares patent. No nasal discharge, no septal abnormalities noted. Tympanic membranes are normal and external auditory canals are clear. Oropharynx with no redness, swelling, or masses, exudates, or evidence of obstruction, uvula midline. Mucous membranes moist. Neck: Trachea midline, no thyromegaly or masses palpated, and no cervical lymphadenopathy. Supple, full range of motion without nuchal rigidity, or vertebral point tenderness. No Meningismus. Chest/axilla: Normal chest wall appearance and motion. Nontender with no deformity. No lesions are appreciated. Cardiovascular: Regular rate and rhythm with a normal S1 and S2. Normal PMI, no JVD. No pulse deficits. Respiratory: Lungs have equal breath sounds bilaterally, clear to auscultation. No rales, rhonchi or wheezes noted. No increased work of breathing, no retractions or nasal flaring. Back: No spinal tenderness. No costovertebral tenderness. Full range of motion. Skin: Warm, dry with normal turgor. Normal color with no rashes, no lesions, and no evidence of cellulitis. 14:11 Eyes: Exam is negative for acute changes, visual changes, 14:11 ENT: External ear(s): are unremarkable, Ear canal(s): are normal, no bleeding, no bloody discharge, no erythema, no acute changes, TM's: are normal, no evidence of bulging, no dullness, no erythema, no acute changes, 14:11 Neuro: Orientation: is normal, appropriate for stated age, to person, place, time \T\ situation. Mentation: is normal, Cranial nerves: grossly normal, CN II- XII are normal as tested, extraocular movements are intact, Facial palsy and sensory deficits are absent. no gross hearing deficit,. Nystagmus is absent. Speech is clear and appropriate. Tongue strength is normal, Vital Signs: 13:13 BP 236 / 113; Pulse 75; Resp 18; Temp 98.1; Pulse Ox 97% ; Weight 84 kg; Height 5 ft. 1 bp in. ; 14:40 BP 189 / 85; dr5 16:00 BP 146 / 74; Pulse 64; Resp 16; Pulse Ox 97% ; bp 16:57 BP 131 / 74; Pulse 65; Resp 16; Pulse Ox 97% ; bp 13:13 Body Mass Index 34.99 (84.00 kg, 154.94 cm) bp NIH Stroke Scale Scores: 14:11 NIHSS Score: 0 dr5 MDM: 13:12 Medical Screening Exam initiated dr5 14:40 ED course: Checked on patient. Blood pressure is decreasing and dizziness is getting dr5 better. 16:44 Differential diagnosis: generalized weakness, syncope, vertigo, [place], NSTEMI, dr5 uncontrolled hypertension. Data reviewed: vital signs, nurses notes, lab test result(s), EKG, radiologic studies, I have discussed the patient's presentation/case with the attending Emergency Department Physician;. Consideration of Admission/Observation Patient was admitted/placed on observation. I considered the following discharge prescriptions or medication management in the emergency department Medications were administered in the Emergency Department. See MAR. Care significantly affected by the following chronic conditions: Diabetes, A-fib. Care significantly affected by the following Social Determinants of Health: Poor access to healthcare and/or lack of insurance, Poor access to transportation. Counseling: I had a detailed discussion with the patient and/or guardian regarding the historical points, exam findings, and any diagnostic results supporting the discharge/admit diagnosis, the presence of at least one elevated blood pressure reading (>120/80) during this emergency department visit, lab results, radiology results, the need for further work-up and treatment in the hospital. Medication response: clonidine partially reduced the patient's blood pressure. Response to treatment: the patient's symptoms have markedly improved after treatment. ED course: Spoke with Dr. Wallace about case. Will admit after CT head and repeat troponin.. 10/12 13:30 Order name: CBC with Diff; Complete Time: 14:35 dr5 10/12 13:30 Order name: High Sensitivity Troponin; Complete Time: 14:49 dr5 10/12 13:30 Order name: Protime (+inr); Complete Time: 14:35 dr5 10/12 13:30 Order name: Ptt, Activated; Complete Time: 14:35 dr5 10/12 13:30 Order name: CMP; Complete Time: 14:49 dr5 10/12 15:37 Order name: Troponin High Sensitivity; Complete Time: 16:36 EDKS 10/12 16:45 Order name: Basic Metabolic Panel [facility] 10/12 16:45 Order name: Basic Metabolic Panel [facility] 10/12 16:45 Order name: CBC with Automated Diff [facility] 10/12 16:45 Order name: CBC with Automated Diff [facility] 10/12 16:45 Order name: Lipid Profile [facility] 10/12 16:45 Order name: Lipid Profile [facility] 10/12 16:45 Order name: Troponin High Sensitivity [facility] 10/12 16:45 Order name: Troponin High Sensitivity [facility] 10/12 15:37 Order name: Head Brain Wo Cont; Complete Time: 16:16 [facility] 10/12 16:45 Order name: Echo with Doppler [facility] 10/12 16:45 Order name: CONS Physician Consult [facility] 10/12 16:45 Order name: CONS Physician Consult [facility] 10/12 16:45 Order name: CONS Physician Consult [facility] 10/12 13:30 Order name: Accucheck; Complete Time: 14:19 dr5 10/12 13:30 Order name: Cardiac monitoring; Complete Time: 14:19 dr5 10/12 13:30 Order name: EKG - Nurse/Tech; Complete Time: 14:19 dr5 10/12 13:30 Order name: IV Saline Lock; Complete Time: 14:19 dr5 10/12 13:30 Order name: Labs collected and sent; Complete Time: 14:19 dr5 10/12 13:30 Order name: NPO; Complete Time: 13:48 dr5 10/12 13:30 Order name: O2 Per Protocol; Complete Time: 13:48 dr5 10/12 13:30 Order name: O2 Sat Monitoring; Complete Time: 13:48 dr5 10/12 13:30 Order name: Stroke Swallow Screen; Complete Time: 14:19 dr5 EC:12 Rate is 69 beats/min. Rhythm is regular. QRS [place] is Normal. VT interval is normal at dr5 212 msec. QRS interval is normal at 134 msec. QT interval is normal at 450 msec. Administered Medications: 14:00 Drug: Diazepam PO 5 mg PO once Route: PO; bp 15:05 Follow up: Response: No adverse reaction bp 14:00 Drug: Lisinopril PO 20 mg PO once Route: PO; bp 15:05 Follow up: Response: No adverse reaction bp 14:00 Drug: amLODIPine PO 10 mg PO once Route: PO; bp 15:05 Follow up: Response: No adverse reaction bp 14:00 Drug: cloNIDine PO 0.1 mg PO once Route: PO; bp 15:06 Follow up: Response: No adverse reaction bp 15:11 Drug: Aspirin PO Chewable Tablet 324 mg PO once; 81 mg tablets x 4 Route: PO; bp 15:50 Follow up: Response: No adverse reaction bp Disposition: 10/13 15:43 Co-signature as Attending Physician, Zhao Madera MD I reviewed the patient's care rn provided by the Advanced Practice Provider and agree with the diagnosis and treatment plan. Disposition Summary: 10/12/24 16:37 Hospitalization Ordered Notes: Hospitalization Status: Inpatient Admission dr5 Provider: Francisco J Del Cid dr5 Location: Telemetry/MedSurg (Inpatient) dr5 Condition: Stable dr5 Problem: new dr5 Symptoms: are unchanged dr5 Bed/Room Type: Standard dr5 Room Assignment: 221(10/12/24 17:20) sb4 Diagnosis - Subsequent non-ST elevation (NSTEMI) myocardial infarction dr5 Forms: - Medication Reconciliation Form dr5 - SBAR form dr5 - Leadership Thank You Letter dr5 NIH Stroke Scale - NIH Stroke Score Date: 10/12/2024 Time: 14:11 Total Score = 0 10. Dysarthria (speech clarity - read or repeat words) - 0(Normal) 11. Extinction and Inattention (visual/tactile/auditory/spatial/personal) - 0(No abnormality) 1a. Level of Consciousness (LOC) - 0(Alert) 1b. Level of Consciousness (LOC) (Month \T\ Age) - 0(Both) 1c. LOC Commands (Open \T\ Closes Eyes/Acute Care Nurse) - 0(Both) 2. Best Gaze (Lateral Gaze Paresis) - 0(Normal) 3. Visual Field Loss - 0(No visual loss) 4. Facial Palsy - 0(Normal) 5a. Left Arm: Motor (10-second hold) - 0(No drift) 5b. Right Arm: Motor (10-second hold) - 0(No drift) 6a. Left Leg: Motor (5-second hold - always test supine) - 0(No drift) 6b. Right Leg: Motor (5-second hold - always test supine) - 0(No drift) 7. Limb Ataxia (finger/nose \T\ heel/hernandez - test with eyes open) - 0(Absent) 8. Sensory Loss (pinprick arms/legs/face) - 0(Normal) 9. Best Language: Aphasia (description/naming/reading) - 0(No aphasia) Initials: dr5 Signatures: Dispatcher [employer] EDMS Zhao Madera MD MD rn Baxter, Heather, RN RN hb Peltier, Brian, RN RN bp Benton, Danielle, RN RN db Brown, Sophia, KLAUSC PAKeyona sb4 Abdullahi Sutherland, ERNESTO-C JAVA SYBASE DEVELOPER-Cdr5 Corrections: (The following items were deleted from the chart) 10/12 13:30 13:30 CBC+H.LAB.BRZ ordered. EDMS EDMS 13:30 13:30 Troponin High Sensitivity+C.LAB.BRZ ordered. EDMS EDMS 13:30 13:30 PROTIME (+INR)+COAG.LAB.BRZ ordered. EDMS EDMS 13:30 13:30 PTT, ACTIVATED+COAG.LAB.BRZ ordered. EDMS EDMS 13:30 13:30 COMPREHENSIVE METABOLIC PANEL+C.LAB.BRZ ordered. EDMS EDMS 14:42 14:37 Foot Left 3 View+RAD.RAD.BRZ ordered. EDMS EDMS 17:00 16:37 dr5 hb 17:20 17:00 206 hb sb4
[2024-10-12] MEDS: AMLODIPINE 5 MG TAB PO ONE (16:43)
--- NOTE | 2024-10-12 16:50 | P.HP ---
Certification for Inpatient Patient admitted to: Inpatient With expected LOS: >2 Midnights Patient will require the following post-hospital care: None Practitioner: I am a practitioner with admitting privileges, knowledge of patient current condition, hospital course, and medical plan of care. Services: Services provided to patient in accordance with Admission requirements found in Title 42 Section 412.3 of the Code of Federal Regulations Patient History Date of Service: 10/12/24 Reason for admission: Dizziness; ataxic History of Present Illness: Patient is a 74-year-old female who presents to the emergency room with complaints of having dizziness and ataxia. Patient came into the ER and she was found to have a significantly elevated blood pressure of 220/120. Patient's heart rate was also in the 90s. Patient had lab workup done which showed a mildly elevated troponin of 100, but no EKG changes. Patient was sent for admission to the hospitalist service. I did speak to the patient and her granddaughter. Patient has a history of carotid artery disease as well as peripheral arterial disease. She has had multiple toes amputated on the left foot. She has had angioplasty on the right leg. However, she denies having any cardiac disease. She denies having any cardiac intervention in the past. Her last stress test was about [address] Marinelli's office. She has not seen a radio electronics technician since that time. After evaluation of the patient I went ahead and ordered a CT scan of the brain and a repeat troponin prior to adm ission. CT of the brain came back unremarkable. Troponins went up to 103. Patient EKG is still not showing any changes. Patient's blood pressure is better controlled. At this time, patient will be admitted to the hospital for inpatient hospitalization. Have consulted cardiology. Will make n.p.o. after midnight and will get an echocardiogram in the morning. Repeat troponins in the morning. Patient will be started on a heparin drip as well. Allergies doxycycline Allergy (Severe, Verified 04/04/24 23:26) Nausea/Vomiting Sulfa (Sulfonamide Antibiotics) Allergy (Severe, Verified 04/04/24 23:26) Hives sulfamethoxazole [From Bactrim] Allergy (Severe, Verified 04/04/24 23:26) Hives trimethoprim [From Bactrim] Allergy (Severe, Verified 04/04/24 23:26) Hives Home Medications: Amlodipine [Norvasc*] 10 mg PO DAILY 12/17/19 Duloxetine HCl [Cymbalta] 30 mg PO BEDTIME 12/17/19 Lisinopril [Zestril] 20 mg PO DAILY 12/17/19 Melatonin 10 mg PO BEDTIME PRN 12/17/19 Metoprolol Tartrate [Lopressor] 50 mg PO DAILY 12/17/19 clonazePAM [Klonopin*] 1 mg PO TIDP PRN 12/17/19 Aspirin [Aspirin EC 81 MG] 81 mg PO DAILY #30 tablet. 01/21/20 Magnesium Oxide [Mag 0X*] 400 mg PO BID 5 Days #10 tab 04/10/24 Hydrocodone 5/APAP 325 [[place] 5/325*] 1 tab PO Q8H PRN #10 tab 06/11/24 traMADol HCL [Ultram*] 50 mg PO Q6H PRN #20 tab 07/22/24 - Past Medical/Surgical History Diabetic: Yes -: HTN -: Diabetes mellitus type 2 -: Lupus -: Rheumatoid arthritis -: CAD -: Depression with anxiety -: Former smoker -: Claustrophobia -: PAD -: hyperlipidemia -: sleep apnea -: breast cancer -: -: Hysterectomy -: Tonsillectomy -: Incision and drainage of thumb -: Bladder Suspension -: Left third toe amputation -: left lumpectomy Psychosocial/ Personal History: Patient lives at home - Family History Mother Medical History: Diabetes, Cancer Notes: uterine cancer Father Medical History: Cancer Notes: cancer of kidney, skin, and lung Brother Medical History: Heart disease, Cancer Notes: Brother 1. "heart problems" Brother 2. cancer - nonhogkin lymphoma Sister Medical History: Cancer Notes: skin cancer - Social History Smoking Status: Former smoker Alcohol use: Yes CD- Drugs: No Caffeine use: Yes Review of Systems 10-point ROS is otherwise unremarkable Physical Examination - Vital Signs Temperature: 98 F Blood Pressure: 140/80 Pulse: 90 Respirations: 18 Pulse Ox (%): 96 - Physical Exam General: Alert, In no apparent distress, Oriented x3 HEENT: Atraumatic, PERRLA, Mucous membr. moist/pink, EOMI, Sclerae nonicteric Neck: Supple, 2+ carotid pulse no bruit, No LAD, Without JVD or thyroid abnormality Respiratory: Clear to auscultation bilaterally, Normal air movement Cardiovascular: Regular rate/rhythm, Normal S1 S2, No murmurs Gastrointestinal: Normal bowel sounds, Soft and benign, Non-distended, No tenderness Musculoskeletal: No clubbing, No swelling, No tenderness Integumentary: No rashes Neurological: Normal gait, Normal speech, Normal strength at 5/5 x4 extr, Normal tone, Sensation intact, Cranial nerves 3-12 intact, Normal affect Lymphatics: No axilla or inguinal lymphadenopathy - Studies Laboratory Data (last 24 hrs) 10/12/24 10/12/24 10/12/24 14:16 14:16 14:16 WBC 5.30 Hgb 14.0 Hct 41.8 Plt Count 195 PT 10.8 INR 0.96 APTT 45.1 H Sodium 136 Potassium 4.2 BUN 11 Creatinine 1.05 H Glucose 212 H Total Bilirubin 0.7 AST 27 ALT 26 Alkaline Phosphatase 144 H Assessment & Plan - Problems (Diagnosis) (1) NSTEMI (non-ST elevated myocardial infarction) Current Visit: Yes Status: Acute (2) H/O: CVA (cerebrovascular accident) Current Visit: No Status: Acute (3) Rheumatoid arthritis Current Visit: No Status: Acute (4) Depression Current Visit: No Status: Chronic (5) Diabetes Onset Date: 05/07/17 Current Visit: No Status: Chronic Qualifiers: (6) Hypertension Onset Date: 05/07/17 Current Visit: No Status: Chronic Qualifiers: Hypertension type: primary hypertension Qualified Code(s): I10 - Essential (primary) hypertension (7) Idiopathic chronic venous hypertension with ulcer of right lower extremity Current Visit: No Status: Resolved (8) Lupus (systemic lupus erythematosus) Current Visit: Yes Status: Acute - Plan Plan: 1. NSTEMI: -High-sensitivity troponin -Cardiology consultation -Echocardiogram and further testing per cardiology recommendation -Repeat EKG -Lipid profile -N.p.o. after midnight 2. h/o of CVA: -MRI of the brain -Antiplatelet and statin therapy -Lipid profile -Physical therapy and speech therapy consultation -DVT prophylaxis -Neurochecks every 4 hours 3. Carotid artery stenosis -antiplatelet therapy/statin therapy 4. PAD -antiplatelet therapy/statin therapy 5. DM-2 -strict BS control Discharge Plan: Home Plan to discharge in: Greater than 2 days - Advance Directives Does patient have a Living Will: No Does patient have a Durable POA for Healthcare: No - Code Status/Comfort Care Code Status Assessed: Yes Code Status: Full Code Critical Care: No Time Spent Managing PTS Care (In Minutes): 45
[2024-10-12] MEDS: LOSARTAN POTASSIUM 50 MG TABLET PO SCH (20:52)
[2024-10-12] MEDS: METOPROLOL TAR 50 MG TAB PO SCH (20:52)
[2024-10-12] MEDS: HEPARIN/D5W 25,000 UNIT/500 ML BAG IV SCH (20:52)
[2024-10-12] MEDS: MELATONIN 3 MG TABLET PO PRN (22:20)
[2024-10-12 22:44] VITALS: BMI 34.9
[2024-10-13 07:13] LABS: Absolute Basophils 0.1 K/uL (0-0.5); Absolute Eosinophils 0.5 K/uL (0-0.5); Absolute Lymphocytes (CBC) 1.3 K/uL (0.7-4.9); Absolute Monocytes 0.7 K/uL (0.1-1.3); Absolute Neutrophil 2.6 K/uL (1.8-8.0); Basophils % 1.4 % (0-1.3); Eosinophils % 10.5 % (0-4.4); Hematocrit 38.6 % (36.0-45.0); Hemoglobin 12.9 g/dL (12.0-15.0); Lymphocytes % 25.6 % (15.3-44.8); MCH 31.4 pg (27.0-35.0); MCHC 33.3 g/dL (32.0-36.0); MPV 9.4 fL (7.6-11.3); Monocytes % 12.6 % (3.3-12.3); Neutrophils % 49.9 % (41.7-73.7); Platelets 178 thou/uL (152-406)
[2024-10-13 07:33] LABS: Anion Gap 8.6 mEq/L (5.0-15.0); Potassium 3.6 mEq/L (3.5-5.1)
[2024-10-13 07:34] LABS: Troponin High Sensitivity 88.7 pg/mL (<58.9)
[2024-10-13] MEDS: PNEUMOCOCCAL VACCINE 0.5 ML IMVAC ONE (08:00)
[2024-10-13] MEDS: AMLODIPINE 10 MG TAB PO SCH (08:18)
--- NOTE | 2024-10-13 10:49 | P.CNS ---
Date of Consult: 10/13/24 Chief Complaint: Dizziness; ataxic History of Present Illness: Patient with PMH of HTN, PAD, Carotid artery disease, presented with dizziness for 2 days, mention having chest pressure sensation in her chest, on/off, radiating to her epigastric area associated with nausea. Allergies doxycycline Allergy (Severe, Verified 04/04/24 23:26) Nausea/Vomiting Sulfa (Sulfonamide Antibiotics) Allergy (Severe, Verified 04/04/24 23:26) Hives sulfamethoxazole [From Bactrim] Allergy (Severe, Verified 04/04/24 23:26) Hives trimethoprim [From Bactrim] Allergy (Severe, Verified 04/04/24 23:26) Hives Home medications list reviewed: Yes Home Medications: Amlodipine [Norvasc*] 10 mg PO DAILY 12/17/19 Duloxetine HCl [Cymbalta] 30 mg PO BEDTIME 12/17/19 Lisinopril [Zestril] 20 mg PO DAILY 12/17/19 Melatonin 10 mg PO BEDTIME PRN 12/17/19 Metoprolol Tartrate [Lopressor] 50 mg PO DAILY 12/17/19 clonazePAM [Klonopin*] 1 mg PO TIDP PRN 12/17/19 Aspirin [Aspirin EC 81 MG] 81 mg PO DAILY #30 tablet. 01/21/20 Magnesium Oxide [Mag 0X*] 400 mg PO BID 5 Days #10 tab 04/10/24 Hydrocodone 5/APAP 325 [[place] 5/325*] 1 tab PO Q8H PRN #10 tab 06/11/24 traMADol HCL [Ultram*] 50 mg PO Q6H PRN #20 tab 07/22/24 - Past Medical/Surgical History Diabetic: Yes -: HTN -: Diabetes mellitus type 2 -: Lupus -: Rheumatoid arthritis -: CAD -: Depression with anxiety -: Former smoker -: Claustrophobia -: PAD -: hyperlipidemia -: sleep apnea -: breast cancer -: -: Hysterectomy -: Tonsillectomy -: Incision and drainage of thumb -: Bladder Suspension -: Left third toe amputation -: left lumpectomy Psychosocial/ Personal History: Patient lives at home - Family History Mother Medical History: Diabetes, Cancer Notes: uterine cancer Father Medical History: Cancer Notes: cancer of kidney, skin, and lung Brother Medical History: Heart disease, Cancer Notes: Brother 1. "heart problems" Brother 2. cancer - nonhogkin lymphoma Sister Medical History: Cancer Notes: skin cancer - Social History Smoking Status: Unknown if ever smoked Alcohol use: Yes CD- Drugs: No Caffeine use: Yes Place of Residence: Home Review of Systems 10-point ROS is otherwise unremarkable Physical Examination Temp Pulse Resp BP Pulse Ox 97.4 F 61 12 151/70 H 96 10/13/24 08:00 10/13/24 08:00 10/13/24 08:00 10/13/24 08:00 10/13/24 08:00 General: Alert, In no apparent distress HEENT: Atraumatic, PERRLA, Mucous membr. moist/pink, EOMI, Sclerae nonicteric Neck: Supple, 2+ carotid pulse no bruit, No LAD, Without JVD or thyroid abnormality Respiratory: Clear to auscultation bilaterally, Normal air movement Cardiovascular: Regular rate/rhythm, Normal S1 S2 Gastrointestinal: Normal bowel sounds, No tenderness Musculoskeletal: No tenderness Integumentary: No rashes Neurological: Normal gait, Normal speech, Normal tone, Normal affect Lymphatics: No axilla or inguinal lymphadenopathy Laboratory Data (last 24 hrs) 10/12/24 10/12/24 10/12/24 14:16 14:16 14:16 WBC 5.30 Hgb 14.0 Hct 41.8 Plt Count 195 PT 10.8 INR 0.96 APTT 45.1 H Sodium 136 Potassium 4.2 BUN 11 Creatinine 1.05 H Glucose 212 H Total Bilirubin 0.7 AST 27 ALT 26 Alkaline Phosphatase 144 H - Problems (1) NSTEMI (non-ST elevated myocardial infarction) Current Visit: Yes Status: Acute Plan: with multiple risk factors and angina NPO for coronary angiogram ASA 81 mg daily Lipitor 40 mg daily Heparin drip ACS protocol.
[2024-10-13] MEDS ORDERED: FENTANYL CITR 100 MCG/2 ML IV PRN (11:50)
[2024-10-13] MEDS: NA CHLORIDE 0.9% 500 ML ONE (15:04)
[2024-10-13] MEDS ORDERED: VERAPAMIL HCL 10 MG/4 ML VIAL IV ONE (16:29)
[2024-10-13] MEDS ORDERED: LIDOCAINE 1% 20 ML MDV ONE (16:29)
[2024-10-13] MEDS ORDERED: HEPARIN 10,000 UNIT/10 ML VIAL IV ONE (16:29)
[2024-10-13] MEDS ORDERED: MIDAZOLAM HCL 2 MG/2 ML INJ ONE (16:29)
[2024-10-13] MEDS ORDERED: CLOPIDOGREL 75 MG TABLET ONE (16:29)
[2024-10-13] MEDS ORDERED: HEPA 1000U/500MLS 2,000 UNIT/1,000 ML BAG IV ONE (16:29)
[2024-10-13] MEDS ORDERED: ASPIRIN 325 MG TAB ONE (16:30)
[2024-10-13] MEDS ORDERED: TICAGRELOR 90 MG TABLET PO ONE (16:30)
[2024-10-13] MEDS ORDERED: FENTANYL CITR 100 MCG/2 ML ONE (16:30)
[2024-10-13] MEDS ORDERED: HEPARIN 5000 UNIT/ML 1 ML VIAL ONE (16:30)
[2024-10-13] MEDS ORDERED: HYDRALAZINE HCL 20 MG/ML VIAL ONE (17:37)
[2024-10-13] MEDS ORDERED: NITROGLYCERIN 0.4 MG/TAB SL PRN (18:43)
--- NOTE | 2024-10-13 18:43 | P.PN ---
Date of Service: 10/13/24 Subjective Denies chest pain at this time, no c/o Review of Systems 10-point ROS is otherwise unremarkable Physical Examination - Vital Signs reviewed - Physical Exam General: Alert, In no apparent distress, Oriented x3 HEENT: Atraumatic, PERRLA, Mucous membr. moist/pink, EOMI, Sclerae nonicteric Neck: Supple, 2+ carotid pulse no bruit, No LAD, Without JVD or thyroid abnormality Respiratory: Clear to auscultation bilaterally, Normal air movement Cardiovascular: Regular rate/rhythm, Normal S1 S2, No murmurs Gastrointestinal: Normal bowel sounds, Soft and benign, Non-distended, No tenderness Musculoskeletal: No clubbing, No swelling, No tenderness Integumentary: No rashes Neurological: Cranial nerves 3-12 intact, Normal affect Lymphatics: No axilla or inguinal lymphadenopathy - Studies Laboratory Data (last 24 hrs) 10/12/24 10/12/24 10/12/24 14:16 14:16 14:16 WBC 5.30 Hgb 14.0 Hct 41.8 Plt Count 195 PT 10.8 INR 0.96 APTT 45.1 H Sodium 136 Potassium 4.2 BUN 11 Creatinine 1.05 H Glucose 212 H Total Bilirubin 0.7 AST 27 ALT 26 Alkaline Phosphatase 144 H Assessment & Plan - Problems (Diagnosis) (1) NSTEMI (non-ST elevated myocardial infarction) Current Visit: Yes Status: Acute (2) H/O: CVA (cerebrovascular accident) Current Visit: No Status: Acute (3) Rheumatoid arthritis Current Visit: No Status: Acute (4) Depression Current Visit: No Status: Chronic (5) Diabetes Onset Date: 05/07/17 Current Visit: No Status: Chronic Qualifiers: (6) Hypertension Onset Date: 05/07/17 Current Visit: No Status: Chronic Qualifiers: Hypertension type: primary hypertension Qualified Code(s): I10 - Essential (primary) hypertension (7) Idiopathic chronic venous hypertension with ulcer of right lower extremity Current Visit: No Status: Resolved (8) Lupus (systemic lupus erythematosus) Current Visit: Yes Status: Acute - Plan Plan: 1. NSTEMI: -High-sensitivity troponin -Cardiology consultation -Echocardiogram and further testing per cardiology recommendation -Repeat EKG -Lipid profile -N.p.o. after midnight for [facility] 2. h/o of CVA: -MRI of the brain -Antiplatelet and statin therapy -Lipid profile -Physical therapy and speech therapy consultation -DVT prophylaxis -Neurochecks every 4 hours 3. Carotid artery stenosis -antiplatelet therapy/statin therapy 4. PAD -antiplatelet therapy/statin therapy 5. DM-2 -strict BS control Discharge Plan: Home Plan to discharge in: Greater than 2 days - Advance Directives Does patient have a Living Will: No Does patient have a Durable POA for Healthcare: No - Code Status/Comfort Care Code Status Assessed: Yes Code Status: Full Code Critical Care: No
[2024-10-13] MEDS: METHYLPREDNISOLONE 125 MG INJ ONE (20:41)
[2024-10-13] MEDS: NA CHLORIDE 0.9% 1,000 ML IV SCH (21:27)
[2024-10-13] MEDS: METHYLPREDNISOLONE 125 MG INJ IV ONE (21:27)
[2024-10-13] MEDS: MECLIZINE HCL 12.5 MG TAB PO SCH (21:27)
--- NOTE | 2024-10-14 08:28 | ECHO ---
HEIGHT: 5 ft 1 in WEIGHT: 185 lb 3.013 oz DATE OF STUDY: 10/13/[address]: Francisco J Del Cid MD 2-DIMENSIONAL: YES M.MODE: YES DOPPLER: YES COLOR FLOW: YES TDS: NO PORTABLE: YES DEFINITY: NO BUBBLE STUDY: NO DIAGNOSIS: NSTEMI CARDIAC HISTORY: CATHERIZATION: NO SURGERY: NO PROSTHETIC VALVE: NO PACEMAKER: NO MEASUREMENTS (cm) DIASTOLIC (NORMALS) SYSTOLIC (NORMALS) IVSd 1.3 (0.6-1.2) LA Diam 2.0 (1.9-4.0) LVEF 60% LVIDd 3.8 (3.5-5.7) LVIDs 2.6 (2.0-3.5) %FS 31% LVPWd 1.3 (0.6-1.2) Ao Diam 2.8 (2.0-3.7) 2 DIMENSIONAL ASSESSMENT: RIGHT ATRIUM: NORMAL LEFT ATRIUM: NORMAL RIGHT VENTRICLE: NORMAL LEFT VENTRICLE: NORMAL TRICUSPID VALVE: NORMAL MITRAL VALVE: SEVERE MITRAL ANNULAR CALCIFICATION PULMONIC VALVE: NORMAL AORTIC VALVE: NORMAL PERICARDIAL EFFUSION: NONE AORTIC ROOT: NORMAL LEFT VENTRICULAR WALL MOTION: NORMAL. DOPPLER/COLOR FLOW: SEE BELOW. COMMENTS: 1. NORMAL LEFT VENTRICULAR EJECTION FRACTION 55-60% WITH NORMAL WALL MOTION. 2. GRADE I DIASTOLIC DYSFUNCTION. 3. SEVERE MITRAL ANNULAR CALCIFICATION WITH MILD MITRAL REGURGITATION. TECHNOLOGIST: DIANA PALOMINO
[2024-10-14 10:07] VITALS: O2SAT 94
[2024-10-14] MEDS: LORazepam 2 MG/ML VIAL IV PRN (14:02)
[2024-10-14] MEDS: ACETAMINOPHEN 325 MG TABLET PO PRN (17:21)
[2024-10-14] MEDS: METOPROLOL TARTRATE 5 MG/5 ML INJ IV PRN (17:22)
--- NOTE | 2024-10-14 17:32 | P.DS ---
Admission Date: 10/12/24 Discharge Date: 10/14/24 Disposition: ROUTINE DISCHARGE Discharge Condition: GOOD Reason for Admission: Dizziness; ataxic Consultations: Dr. Meadows Procedures: LHC and MRI of brain Roland maneuver Brief History of Present Illness: Patient is a 74-year-old female who presents to the emergency room with complaints of having dizziness and ataxia. Patient came into the ER and she was found to have a significantly elevated blood pressure of 220/120. Patient's heart rate was also in the 90s. Patient had lab workup done which showed a mildly elevated troponin of 100, but no EKG changes. Patient was sent for admission to the hospitalist service. I did speak to the patient and her granddaughter. Patient has a history of carotid artery disease as well as peripheral arterial disease. She has had multiple toes amputated on the left foot. She has had angioplasty on the right leg. However, she denies having any cardiac disease. She denies having any cardiac intervention in the past. Her last stress test was about [address] Marinelli's office. She has not seen a robot technician since that time. After evaluation of the patient I went ahead and ordered a CT scan of the brain and a repeat troponin prior to admission. CT of the brain came back unremarkable. Troponins went up to 103. Patient EKG is still not showing any changes. Patient's blood pressure is better controlled. At this time, patient will be admitted to the hospital for inpatient hospitalization. Have consulted cardiology. Will make n.p.o. after midnight and will get an echocardiogram in the morning. Repeat troponins in the morning. Patient will be started on a heparin drip as well. Hospital Course: Ms. Gotti was feeling better today after her left heart cath last p.m., her blood pressure has been more controlled, and her headache is resolved. She continued to have some dizziness on standing. MRI of the brain was performed. The Roland maneuver was performed and the dizziness resolved. She will be given meclizine for use at home and will follow-up with neurology and cardiology on an outpatient basis. Vital Signs/Physical Exam: Temp Pulse Resp BP Pulse Ox 98.1 F 69 18 192/83 H 97 10/14/24 16:00 10/14/24 17:22 10/14/24 16:00 10/14/24 17:22 10/14/24 16:00 General: Alert, In no apparent distress, Oriented x3 HEENT: Atraumatic, Normocephalic Neck: Supple Respiratory: Clear to auscultation bilaterally, Normal air movement Cardiovascular: No edema, Regular rate/rhythm, Normal S1 S2 Capillary refill: <2 Seconds Gastrointestinal: Soft and benign Musculoskeletal: No clubbing, No swelling Integumentary: No rashes Neurological: Normal speech, Normal tone, Other (headache improved over yesterday, Roland resolved symptoms) Lymphatics: No axilla or inguinal lymphadenopathy External genitalia: Deferred Rectal: Deferred Laboratory Data at Discharge: WBC 5.20 thou/uL (4.3-10.9) 10/13/24 07:05 Hgb 12.9 g/dL (12.0-15.0) 10/13/24 07:05 Hct 38.6 % (36.0-45.0) 10/13/24 07:05 Plt Count 178 thou/uL (152-406) 10/13/24 07:05 PT 10.8 SECONDS (9.4-12.5) 10/12/24 14:16 INR 0.96 10/12/24 14:16 APTT 133.7 SECONDS (24.3-36.9) H* 10/13/24 07:05 Sodium 135 mEq/L (136-145) L 10/13/24 07:05 Potassium 3.6 mEq/L (3.5-5.1) D 10/13/24 07:05 BUN 13 mg/dL (7-18) 10/13/24 07:05 Creatinine 0.93 mg/dL (0.55-1.02) 10/13/24 07:05 Glucose 216 mg/dL (74-106) H 10/13/24 07:05 Total Bilirubin 0.7 mg/dL (0.2-1.0) 10/12/24 14:16 AST 27 U/L (15-37) 10/12/24 14:16 ALT 26 U/L (13-56) 10/12/24 14:16 Alkaline Phosphatase 144 U/L (45-117) H 10/12/24 14:16 Triglycerides 201 mg/dL (<150) H 10/13/24 07:05 Cholesterol 204 mg/dL (<200) H 10/13/24 07:05 HDL Cholesterol 47 mg/dL (40-60) 10/13/24 07:05 Cholesterol/HDL Ratio 4.34 10/13/24 07:05 Home Medications: Amlodipine [Norvasc*] 10 mg PO DAILY 12/17/19 Duloxetine HCl [Cymbalta] 30 mg PO BEDTIME 12/17/19 Lisinopril [Zestril] 20 mg PO DAILY 12/17/19 Melatonin 10 mg PO BEDTIME PRN 12/17/19 Metoprolol Tartrate [Lopressor] 50 mg PO DAILY 12/17/19 clonazePAM [Klonopin*] 1 mg PO TIDP PRN 12/17/19 Aspirin [Aspirin EC 81 MG] 81 mg PO DAILY #30 tablet. 01/21/20 Magnesium Oxide [Mag 0X*] 400 mg PO BID 5 Days #10 tab 04/10/24 Hydrocodone 5/APAP 325 [Morris 5/325*] 1 tab PO Q8H PRN #10 tab 06/11/24 traMADol HCL [Ultram*] 50 mg PO Q6H PRN #20 tab 07/22/24 Meclizine HCl [Antivert*] 12.5 mg PO TID PRN #30 tab 10/14/24 New Medications: Meclizine HCl [Antivert*] 12.5 mg PO TID PRN #30 tab PRN Reason: vertigo Physician Discharge Instructions: -DC IV and DC home -Follow-up with PCP in 1 to 2 weeks -Follow-up with Cardiology in 1 to 2 weeks -Follow-up with neurology for vertigo -Please call Dr. Del Cid at [phone] if any questions regarding hospital stay -Please call nursing station at [phone] if any nursing or medication questions -Return to the emergency room if symptoms worsen Order for rollator was submitted on 10/13/24 to: [facility] [address] [facility] [address] [address] phone: [phone] Diet: AHA Activity: Fall precautions Followup: NONE,NONE [Primary Care Provider] -
--- NOTE | 2024-10-14 17:55 | RAD REPORT ---
EXAMINATION: MRI BRAIN WITHOUT CONTRAST CLINICAL INDICATION: Female, 74 years old.[facility] Vertigo TECHNIQUE: Multiplanar multisequence MR images of the brain were obtained without intravenous contras t. Unless otherwise specified, incidental findings do not require dedicated imaging follow-up. COMPARISON: 06/09/[address] 10/12/2024 FINDINGS: INTRACRANIAL: Midline structures are unremarkable. Diffusion-weighted images show a punctate focus o f diffusion restriction along the left inferior cerebellar folia, see series 6 image 53. Another questionable tiny focus of cortical diffusion restriction along the posterior right frontal middle gy zeina, series 6 image 69. There is mild brain atrophy with moderateT2/FLAIR hyperintensities in the periventricular and deep white matter regions, likely representing chronic microvascular ischemic alanna nges. Focus of gliosis and adjacent hemosiderin deposition along the right lentiform nucleus/centrum semiovale, stable, compatible with a small remote lacunar infarct. There is no mass e ffect or midline shift. No abnormal extraaxial fluid collection. VASCULATURE: Normal signal voids in the larger intracranial arteries and dural venous sinuses. SINUSES: The paranasal sinuses and mastoid air cells are predominantly clear. BONE: The marrow signal pattern is within normal limits. IMPRESSION: Punctate focus of diffusion restriction along the left superior cerebellar folia, and another questio nable focus in the right frontal cortex, concerning for small infarcts, possibly of embolic nature. Other stable findings including sequelae of remote ischemia and chronic small vessel ischemic changes .
[2024-10-14] MEDS: ACETAMINOPHEN 500 MG TAB PO PRN (21:14)
[2024-10-14] MEDS ORDERED: D10W 125 ML IV PRN (21:16)
[2024-10-14] MEDS ORDERED: GLUCAGON 1 MG/VIAL IM PRN (21:16)
[2024-10-14] MEDS: INSULIN REGULAR (HUMAN) 100 UNIT/ML ONE (22:05)
[2024-10-14] MEDS: INSULIN REGULAR (HUMAN) 100 UNIT/ML SQ SCH (22:17)
[2024-10-14] MEDS: ATORVASTATIN 40 MG TAB ONE (23:07)
[2024-10-14] MEDS: ATORVASTATIN 40 MG TAB PO ONE (23:14)
[2024-10-14] MEDS: ASPIRIN 81 MG CHEWABLE TABLET PO ONE (23:14)
[2024-10-14] MEDS: ALPRAZOLAM 0.25 MG TABLET PO PRN (23:14)
[2024-10-15] MEDS ORDERED: LORazepam 2 MG/ML VIAL IV PRN (06:41)
[2024-10-15] MEDS: ASPIRIN EC 81 MG TAB PO SCH (08:26)
[2024-10-15] MEDS: APIXABAN 5 MG TABLET PO SCH (08:26)
[2024-10-15] MEDS: FOLIC ACID 1 MG TABLET PO SCH (08:29)
--- NOTE | 2024-10-15 17:11 | P.PN ---
Subjective Date of Service: 10/15/24 Chief Complaint: Dizziness; ataxic Subjective: No new changes, No C/O voiced, Tolerating diet, Ambulating, Improving Review of Systems 10-point ROS is otherwise unremarkable Physical Examination - Vital Signs Temperature: 98.1 F Blood Pressure: 152/75 Pulse: 52 Respirations: 16 Pulse Ox (%): 93 - Physical Exam General: Alert, In no apparent distress HEENT: Atraumatic, PERRLA, EOMI Neck: Supple, JVD not distended Respiratory: Clear to auscultation bilaterally, Normal air movement Cardiovascular: Regular rate/rhythm, Normal S1 S2 Gastrointestinal: Normal bowel sounds, No tenderness Musculoskeletal: No tenderness Integumentary: No rashes Neurological: Normal speech, Normal tone, Normal affect Lymphatics: No axilla or inguinal lymphadenopathy - Studies Medications List Reviewed: Yes Assessment And Plan - Current Problems (Diagnosis) (1) NSTEMI (non-ST elevated myocardial infarction) Current Visit: Yes Status: Acute Plan: coronary angiogram done and shows moderate LAD, LCX and RCA disease ASA 81 mg daily Lipitor 40 mg daily outpatient follow up for stress test
--- NOTE | 2024-10-15 19:22 | P.PN ---
Subjective Date of Service: 10/15/24 Chief Complaint: Dizziness; ataxic dizziness has improved post Roland maneuver. Ms. Gotti is only experienced a mild headache last night. Her blood pressure has slowly come down. Left heart cath was performed on 10/13/2024 and showed moderate multivessel disease. MRI 10/14/2024 however shows 2 areas of ischemic likely embolic stroke. She was started on Eliquis 5 mg p.o. twice daily and is awaiting MRA today. PT OT and inpatient rehab consults are in progress. Review of Systems 10-point ROS is otherwise unremarkable General: Weakness Eyes: Unremarkable ENT: Unremarkable Respiratory: Unremarkable Cardiovascular: Unremarkable Gastrointestinal: Unremarkable Genitourinary: Unremarkable Musculoskeletal: Unremarkable Integumentary: Unremarkable Neurological: Incoordination (Mild), Other (Decreased dizziness) Physical Examination - Vital Signs Temperature: 98.1 F Blood Pressure: 152/75 Pulse: 52 Respirations: 16 Pulse Ox (%): 93 - Physical Exam General: Alert, In no apparent distress, Oriented x3, Cooperative, Obese HEENT: Atraumatic, Normocephalic Neck: Supple Respiratory: Clear to auscultation bilaterally, Normal air movement Cardiovascular: No edema, Other (Heparin drip stopped after left heart cath as PTT was elevated, Eliquis started this morning) Capillary refill: <2 Seconds Gastrointestinal: Normal bowel sounds, No tenderness Musculoskeletal: No clubbing, No swelling Integumentary: No rashes Neurological: Normal speech, Normal tone, Sensation intact, Normal affect, Other (Unsteady gait), Abnormal strength Lymphatics: No axilla or inguinal lymphadenopathy External genitalia: Deferred Rectal: Deferred - Studies Medications List Reviewed: Yes Assessment And Plan - Plan Assessment & Plan - Problems (Diagnosis) (1) NSTEMI (non-ST elevated myocardial infarction) Current Visit: Yes Status: Acute (2) H/O: CVA (cerebrovascular accident) Current Visit: No Status: Acute (3) Rheumatoid arthritis Current Visit: No Status: Acute (4) Depression Current Visit: No Status: Chronic (5) Diabetes Onset Date: 05/07/17 Current Visit: No Status: Chronic Qualifiers: (6) Hypertension Onset Date: 05/07/17 Current Visit: No Status: Chronic Qualifiers: Hypertension type: primary hypertension Qualified Code(s): I10 - Essential (primary) hypertension (7) Idiopathic chronic venous hypertension with ulcer of right lower extremity Current Visit: No Status: Resolved (8) Lupus (systemic lupus erythematosus) Current Visit: Yes Status: Acute - Plan Plan: 1. NSTEMI: -High-sensitivity troponin, trending down -Cardiology consultation, left heart cath per Dr. Meadows -Echocardiogram and further testing per cardiology recommendation -Repeat EKG -Lipid profile Left heart cath shows moderate multivessel disease, no PCI, troponin elevation likely secondary to CVA 2. h/o of CVA: -MRI of the brain showed 2 areas of embolic stroke MRA scheduled for 10/15/2024 -Antiplatelet and statin therapy -Lipid profile -Physical therapy and speech therapy consultation -Neurochecks every 4 hours 3. Carotid artery stenosis -antiplatelet therapy/statin therapy 4. PAD -antiplatelet therapy/statin therapy 5. DM-2 -strict BS control Discharge Plan: Home Plan to discharge in: Greater than 2 days - Advance Directives Does patient have a Living Will: No Does patient have a Durable POA for Healthcare: No - Code Status/Comfort Care Code Status Assessed: Yes Code Status: Full Code Critical Care: No Time Spent Managing PTS Care (In Minutes): 45 - Code Status/Comfort Care Code Status Assessed: Yes (Full)
[2024-10-15] MEDS: DIAZEPAM 10 MG/2 ML INJ SYRINGE IV ONE (20:30)
--- NOTE | 2024-10-15 21:36 | RAD REPORT ---
EXAM: MRA Head Wo Cont CLINICAL INDICATION: Acute CVA. TECHNIQUE: 3D [id number] MRA of the head with MIPs. Time-resolved multiphasic pre-contrast and po st-contrast volumetric T1-w arterial phase images of the head with maximum intensity projections (MIPs) of subtracted dataset. Intravenous contrast material was administered for the examination. COMPARISON: None. FINDINGS: Hypoplastic A1 segment right anterior artery. origin right posterior cerebral artery. Narrowing involves M2 segment right middle cerebral artery as well as peripheral branches of the righ t and left middle cerebral arteries. Areas of narrowing in all posterior cerebral arteries bilaterally. Anterior cerebral, basilar and distal internal carotid arteries unremarkable No large vessel occlusion IMPRESSION: Areas of narrowing involving middle and posterior cerebral arteries bilaterally No large vessel occlusion seen
[2024-10-15] MEDS: ATORVASTATIN 40 MG TAB PO SCH (21:39)
[2024-10-15] MEDS ORDERED: ATORVASTATIN 40 MG TAB PO ONE (23:04)
--- NOTE | 2024-10-16 11:59 | P.DS ---
Admission Date: 10/12/24 Discharge Date: 10/16/24 Disposition: TRANSFER TO INPATIENT REHAB Discharge Condition: GOOD Reason for Admission: Dizziness; ataxic Consultations: Dr. Meadows Brief History of Present Illness: Patient is a 74-year-old female who presents to the emergency room with complaints of having dizziness and ataxia. Patient came into the ER and she was found to have a significantly elevated blood pressure of 220/120. Patient's heart rate was also in the 90s. Patient had lab workup done which showed a mildly elevated troponin of 100, but no EKG changes. Patient was sent for admission to the hospitalist service. I did speak to the patient and her granddaughter. Patient has a history of carotid artery disease as well as peripheral arterial disease. She has had multiple toes amputated on the left foot. She has had angioplasty on the right leg. However, she denies having any cardiac disease. She denies having any cardiac intervention in the past. Her last stress test was about [address] Marinelli's office. She has not seen a massage coordinator since that time. After evaluation of the patient I went ahead and ordered a CT scan of the brain and a repeat troponin prior to admission. CT of the brain came back unremarkable. Troponins went up to 103. Patient EKG is still not showing any changes. Patient's blood pressure is better controlled. At this time, patient will be admitted to the hospital for inpatient hospitalization. Have consulted cardiology. Will make n.p.o. after midnight and will get an echocardiogram in the morning. Repeat troponins in the morning. Patient will be started on a heparin drip as well. Hospital Course: Ms. Gotti was feeling better after her left heart cath last p.m. (showing moderate multivessel disease), no PCI performed. Permissive hypertension but trended downward, and her headache resolved. She continued to have some dizziness on standing. MRI of the brain was performed. The Roland maneuver was performed and the dizziness resolved. MRI results with embolic stroke in the cerebellum. MRA performed with evidence of narrowing of posterior vessel but no LVO. Ms. Gotti was frustrated with recurrent testing. She was working well with physical therapy and now consents to inpatient rehab. Vital Signs/Physical Exam: Temp Pulse Resp BP Pulse Ox 97 F 61 16 208/98 H 97 10/16/24 08:00 10/16/24 08:33 10/16/24 08:00 10/16/24 08:33 10/16/24 08:00 General: Alert, In no apparent distress, Oriented x3 HEENT: Atraumatic, Normocephalic Neck: Supple, 2+ carotid pulse no bruit Respiratory: Clear to auscultation bilaterally, Normal air movement Cardiovascular: No edema, Regular rate/rhythm, Normal S1 S2 Capillary refill: <2 Seconds Gastrointestinal: Soft and benign Musculoskeletal: No clubbing, No swelling Integumentary: Other (hyperemic) Neurological: Normal speech, Normal tone, Sensation intact, Normal affect, Abnormal gait Lymphatics: No axilla or inguinal lymphadenopathy External genitalia: Deferred Rectal: Deferred Laboratory Data at Discharge: WBC 5.20 thou/uL (4.3-10.9) 10/13/24 07:05 Hgb 12.9 g/dL (12.0-15.0) 10/13/24 07:05 Hct 38.6 % (36.0-45.0) 10/13/24 07:05 Plt Count 178 thou/uL (152-406) 10/13/24 07:05 PT 10.8 SECONDS (9.4-12.5) 10/12/24 14:16 INR 0.96 10/12/24 14:16 APTT 133.7 SECONDS (24.3-36.9) H* 10/13/24 07:05 Sodium 135 mEq/L (136-145) L 10/13/24 07:05 Potassium 3.6 mEq/L (3.5-5.1) D 10/13/24 07:05 BUN 13 mg/dL (7-18) 10/13/24 07:05 Creatinine 0.93 mg/dL (0.55-1.02) 10/13/24 07:05 Glucose 216 mg/dL (74-106) H 10/13/24 07:05 Total Bilirubin 0.7 mg/dL (0.2-1.0) 10/12/24 14:16 AST 27 U/L (15-37) 10/12/24 14:16 ALT 26 U/L (13-56) 10/12/24 14:16 Alkaline Phosphatase 144 U/L (45-117) H 10/12/24 14:16 Triglycerides 201 mg/dL (<150) H 10/13/24 07:05 Cholesterol 204 mg/dL (<200) H 10/13/24 07:05 HDL Cholesterol 47 mg/dL (40-60) 10/13/24 07:05 Cholesterol/HDL Ratio 4.34 10/13/24 07:05 Home Medications: Amlodipine [Norvasc*] 10 mg PO DAILY 12/17/19 Duloxetine HCl [Cymbalta] 30 mg PO BEDTIME 12/17/19 Lisinopril [Zestril] 40 mg PO DAILY 12/17/19 Melatonin 10 mg PO BEDTIME PRN 12/17/19 Metoprolol Tartrate [Lopressor] 50 mg PO DAILY 12/17/19 clonazePAM [Klonopin*] 1 mg PO TIDP PRN 12/17/19 Aspirin [Aspirin EC 81 MG] 81 mg PO DAILY #30 tablet. 01/21/20 traMADol HCL [Ultram*] 50 mg PO Q6H PRN #20 tab 07/22/24 Meclizine HCl [Antivert*] 12.5 mg PO TID PRN #30 tab 10/14/24 New Medications: Meclizine HCl [Antivert*] 12.5 mg PO TID PRN #30 tab PRN Reason: vertigo Physician Discharge Instructions: Patient is a 74-year-old female who presents to the emergency room with complaints of having dizziness and ataxia. Patient came into the ER and she was found to have a significantly elevated blood pressure of 220/120. Patient's heart rate was also in the 90s. Patient had lab workup done which showed a mildly elevated troponin of 100, but no EKG changes. Patient was sent for admission to the hospitalist service. I did speak to the patient and her granddaughter. Patient has a history of carotid artery disease as well as peripheral arterial disease. She has had multiple toes amputated on the left foot. She has had angioplasty on the right leg. However, she denies having any cardiac disease. She denies having any cardiac intervention in the past. Her last stress test was about [address] Marinelli's office. She has not seen a massage coordinator since that time. After evaluation of the patient I went ahead and ordered a CT scan of the brain and a repeat troponin prior to admission. CT of the brain came back unremarkable. Troponins went up to 103. Patient EKG is still not showing any changes. Patient's blood pressure is bet ter controlled. At this time, patient will be admitted to the hospital for inpatient hospitalization. Have consulted cardiology. Will make n.p.o. after midnight and will get an echocardiogram in the morning. Repeat troponins in the morning. Patient will be started on a heparin drip as wel Ms. Gotti was feeling better after her left heart cath last p.m. (showing moderate multivessel disease), no PCI performed. Permissive hypertension but trended downward, and her headache resolved. She continued to have some dizziness on standing. MRI of the brain was performed. The Roland maneuver was performed and the dizziness resolved. MRI results with embolic stroke in the cerebellum. MRA performed with evidence of narrowing of posterior vessel but no LVO. Ms. Gotti was frustrated with recurrent testing but we discussed better fpc results with intensive inpatient therapy. She works well with physical therapy and now consents to inpatient rehab. Follow up with a Family Medicine Physician of your choice: ZACHARY BOYER MD [address] [facility], [address] [place], [place] [address] ACCEPTING NEW PATIENTS! ROBERT BRUNO MD [address] [facility], [address] [place] [address] ACCEPTING NEW PATIENTS! ART MELGOZA, DO [address] [address] PEDRITO SANTANA MD [address] [facility], [address] [place] [address] JOSELUIS HERRERA MD [address] [facility], [address] [place] [address] MATT CONNOR MD [address] [facility], [place] [address] [place] [address] JAQUELINE CHEN MD [address] [place] [address] KARISHMA BARRAGAN, ACOUSTICAL TILE PATTERNMAKER [address] [facility], [address] [place], [place] [address] LAYA PHAN MD [address] [facility], [address] [place] [address] PERRY PHAN APRN CLINICAL LABORATORY ASSISTANT [address] [facility] [place], [place] [address] [facility] AMARI DO [address] [facility], [address] [place], [place] [address] PROBLEM: Heart Attack GOAL: Clear understanding of disease process INSTRUCTIONS: Diet: AHA Inpatient rehab Order for manuel was submitted on 10/13/24 to: [facility] [place] [facility] [address] [place] [address] [place] [address] phone: [phone] Diet: AHA Activity: Fall precautions Followup: Parmjit Meadows MD [ACTIVE - CAN ADMIT] - NONE,NONE [Primary Care Provider] -
[2024-10-16 20:44] VITALS: BP 174/85
[2024-10-16 21:46] VITALS: TEMP 97.5
--- NOTE | 2024-10-20 12:18 | EKG ---
Test Date: 2024-10-12 Test Time: 14:12:11 Event Promoter: BP MEASUREMENT RESULTS: Intervals: Rate: 69 NC: 212 QRSD: 134 QT: 450 QTc: 482 Depauw: P: 41 NC: 212 QRS: -69 T: 102 INTERPRETIVE STATEMENTS: Sinus rhythm with 1st degree AV block Right bundle branch block Left anterior fascicular block Bifascicular block Left ventricular hypertrophy with repolarization abnormality Cannot rule out Septal infarct, age undetermined Abnormal ECG Compared to ECG 07/16/2024 15:12:33 Myocardial infarct finding now present Bifascicular block still present Electronically Signed On 10-20-24 12:09:27 PARK SUPERINTENDENT by Parmjit Meadows
== END 2024-10-16 21:00 | DRG 65 ==
LOC: ER 13:07 → 2ND 16:36
PROVIDERS: ADMIT Internal Medicine; ATTEND Internal Medicine
PROC: 4A023N7 Measurement of Cardiac Sampling and Pressure, Left Heart, Percutaneous Approach (ICD-10-PCS; principal; 2024-10-13)
PROC: B2111ZZ Fluoroscopy of Multiple Coronary Arteries using Low Osmolar Contrast (ICD-10-PCS; 2024-10-13)
DX: I63.9 Cerebral infarction, unspecified (principal); I87.311 Chronic venous hypertension (idiopathic) with ulcer of right lower extremity; I10 Essential (primary) hypertension; E78.5 Hyperlipidemia, unspecified; I48.91 Unspecified atrial fibrillation; M32.9 Systemic lupus erythematosus, unspecified; I65.29 Occlusion and stenosis of unspecified carotid artery; E11.51 Type 2 diabetes mellitus with diabetic peripheral angiopathy without gangrene; F32.A Depression, unspecified; M06.9 Rheumatoid arthritis, unspecified; R29.700 NIHSS score 0; R42 Dizziness and giddiness; Z88.1 Allergy status to other antibiotic agents; Z88.2 Allergy status to sulfonamides; Z85.3 Personal history of malignant neoplasm of breast; Z79.82 Long term (current) use of aspirin; Z79.899 Other long term (current) drug therapy; Z87.891 Personal history of nicotine dependence; Z90.710 Acquired absence of both cervix and uterus; Z89.422 Acquired absence of other left toe(s)
CPT/HCPCS: 36415; 70450; 70544; 70551; 76937; 80048; 80053; 80061; 82947; 84484; 85025; 85610; 85730; 93005; 93306; 93458; 97116; 97161; 97530; 99152; 99285; C1893; J0360; J1644; J2003; J2250; J2919; J3010; J3360; J7030; J7040; J8597; Q9967

== ENCOUNTER 2024-10-16 17:31 | Inpatient (IN) | payer OTHER ==
--- OUTSIDE RECORDS SUMMARY | 2024-10-16 22:00 | XMS REPORT | Clinical Summary ---
Author Name Unknown Organization [facility] Address [address] [place] [address] Care Team Providers Care Plasterer Apprentice Name Role Phone Kyle Godinez Unavailable [phone] Jessy Munroe MD Unavailable [phone] Andrea Martinez MD Primary Care Provider Susanna Hayes MD Unavailable [phone] Allergies Active Allergy Reactions Criticality Noted Date [...] from 03/21/2023:Stage IB(cT2, cN0(f), cM0, G2, ER+, WA+, HER2-) - Unsigned Pathologic:Stage IA(pT1a, pN0, cM0, G2, ER+, WA+, HER2-) - Signed by Andrea Martinez MD on 06/19/2023 Overview (05/21/2023): Added automatically from request for surgery [id number] Systemic lupus erythematosus 12/08/2015 Hypertensive disorder 12/08/2015 [...] 10/17/2019 Insurance MEDICARE PART A AND B Member Subscriber Plan / Payer (Ef fective 2017-Present) Name:Bridgett Gotti Member ID:[id number] Relation to Subscriber:Self Name:Bridgett Gotti Subscriber ID:[id number] Payer ID:[id number] Group ID:Not on file Type:Medicare Address: [facility] [address] [place] [id number] MEDICARE PART A AND B Member Subscriber Plan / Payer (Ef fective 2017-Present) Name:Bridgett Gotti Member ID:[id number] Relation to Subscriber:Self Name:Bridgett Gotti Subscriber ID:[id number] Payer ID:[id number] Group ID:Not on file Type:Medicare Address: [facility] [address] [place] [address] [place] [address] Care Teams Plasterer Apprentice Relationship Specialty Start Date End Date Kyle Godinez PA [address] [place] [address] PCP - External Primary Care Provider Family Practice 04/20/23 Jesys Munroe MD [address] [address] PCP - External Referring Surgical Oncology 04/20/23 Andrea Martinez MD [address] [place] [id number] [email or web address] PCP - General Breast Medical Oncology 05/08/23 Susanna Hayes MD [facility] [place] [address] [email or web address] Physician Radiation Oncology 06/22/23
[2024-10-16] MEDS ORDERED: NITROGLYCERIN 0.4 MG/TAB SL PRN (23:18)
[2024-10-16] MEDS ORDERED: ALPRAZOLAM 0.25 MG TABLET PO PRN (23:18)
[2024-10-16] MEDS ORDERED: cloNIDine HCL 0.1 MG TAB PO PRN (23:19)
[2024-10-16 23:23] VITALS: BMI 34.2
[2024-10-17] MEDS: MELATONIN 3 MG TABLET PO PRN (00:25)
[2024-10-17 00:29] LABS: Specific Gravity 1.008 (1.005-1.030); Sqamous Epithelial <5 /HPF (None Seen); Urine Bacteria None Seen /HPF (<20); Urine Bilirubin NEGATIVE (Negative); Urine Blood Trace (Negative); Urine Clarity Clear (Clear); Urine Color Light-Yellow (Yellow); Urine Culture Reflex Order NOT NEEDED; Urine Glucose 3+ (Negative); Urine Ketones NEGATIVE (Negative); Urine Micro Reflex YN NO BILL MICROSCOPIC; Urine Nitrite NEGATIVE (Negative); Urine Protein 2+ (Negative); Urine RBC <5 /HPF (None Seen); Urine Urobilinogen Normal (Normal); Urine WBC <5 /HPF (<5); Urine pH 6.5 (5.0-7.0)
[2024-10-17 06:32] LABS: Absolute Basophils 0.1 K/uL (0-0.5); Absolute Eosinophils 0.5 K/uL (0-0.5); Absolute Lymphocytes (CBC) 2.2 K/uL (0.7-4.9); Absolute Monocytes 1.1 K/uL (0.1-1.3); Absolute Neutrophil 4.2 K/uL (1.8-8.0); Eosinophils % 5.7 % (0-4.4); Hematocrit 39.6 % (36.0-45.0); Hemoglobin 13.6 g/dL (12.0-15.0); Lymphocytes % 27.2 % (15.3-44.8); MCH 31.9 pg (27.0-35.0); MCHC 34.3 g/dL (32.0-36.0); MCV 92.9 fL (80-100); MPV 9.9 fL (7.6-11.3); Monocytes % 13.7 % (3.3-12.3); Neutrophils % 52.4 % (41.7-73.7); Nucleated Red Blood Cells % 0.1 % (0-0); Platelets 226 thou/uL (152-406); RBC Red Blood Cell Count 4.27 M/uL (3.86-4.86); Red Cell Distribution Width 13.7 % (12.1-15.2)
[2024-10-17 06:52] LABS: Albumin 2.8 g/dL (3.4-5.0); Anion Gap 10.3 mEq/L (5.0-15.0); Magnesium 1.4 mg/dL (1.6-2.4); Potassium 3.3 mEq/L (3.5-5.1); Prealbumin 16.3 mg/dL (20-40)
[2024-10-17] MEDS: INSULIN REGULAR (HUMAN) 100 UNIT/ML SQ SCH (07:10)
[2024-10-17] MEDS: FOLIC ACID 1 MG TABLET PO SCH (07:23)
[2024-10-17] MEDS: METOPROLOL TAR 50 MG TAB PO SCH (07:23)
[2024-10-17] MEDS: LOSARTAN POTASSIUM 50 MG TABLET PO SCH (07:23)
[2024-10-17] MEDS: APIXABAN 5 MG TABLET PO SCH (07:23)
[2024-10-17] MEDS: AMLODIPINE 10 MG TAB PO SCH (07:23)
[2024-10-17] MEDS ORDERED: INSULIN REGULAR (HUMAN) 100 UNIT/ML SQ SCH (07:30)
[2024-10-17] MEDS ORDERED: MECLIZINE HCL 12.5 MG TAB PO PRN (09:00)
[2024-10-17] MEDS: ENSURE ENLIVE 237 ML CAN PO SCH (09:00)
[2024-10-17] MEDS: POTASSIUM CL SA 10 MEQ TAB PO ONE (09:38)
--- NOTE | 2024-10-17 09:38 | P.RH.PN ---
Estimated Length of Stay: 14 Expected Discharge Date: 10/31/24 Discharge Disposition Plan: Home Family Support: Yes [facility] Goal: Mobility, Transfers, Self Care Vital Signs: Last Vital Signs Temp 98.1 F 10/17/24 08:00 Pulse 59 10/17/24 08:00 Resp 16 10/17/24 08:00 BP 140/67 10/17/24 08:00 Pulse Ox 94 10/17/24 08:00 Laboratory: Laboratory Last Values WBC 8.00 thou/uL (4.3-10.9) 10/17/24 05:22 RBC 4.27 M/uL (3.86-4.86) 10/17/24 05:22 Hgb 13.6 g/dL (12.0-15.0) 10/17/24 05:22 Hct 39.6 % (36.0-45.0) 10/17/24 05:22 MCV 92.9 fL (80-100) 10/17/24 05:22 MCH 31.9 pg (27.0-35.0) 10/17/24 05:22 MCHC 34.3 g/dL (32.0-36.0) 10/17/24 05:22 RDW 13.7 % (12.1-15.2) 10/17/24 05:22 Plt Count 226 thou/uL (152-406) 10/17/24 05:22 MPV 9.9 fL (7.6-11.3) 10/17/24 05:22 Neutrophils % 52.4 % (41.7-73.7) 10/17/24 05:22 Lymphocytes % 27.2 % (15.3-44.8) 10/17/24 05:22 Monocytes % 13.7 % (3.3-12.3) H 10/17/24 05:22 Eosinophils % 5.7 % (0-4.4) H 10/17/24 05:22 Basophils % 1.0 % (0-1.3) 10/17/24 05:22 Absolute Neutrophils 4.2 K/uL (1.8-8.0) 10/17/24 05:22 Absolute Lymphocytes 2.2 K/uL (0.7-4.9) 10/17/24 05:22 Absolute Monocytes 1.1 K/uL (0.1-1.3) 10/17/24 05:22 Absolute Eosinophils 0.5 K/uL (0-0.5) 10/17/24 05:22 Absolute Basophils 0.1 K/uL (0-0.5) 10/17/24 05:22 Sodium 134 mEq/L (136-145) L 10/17/24 05:22 Potassium 3.3 mEq/L (3.5-5.1) L 10/17/24 05:22 Chloride 103 mEq/L (98-107) 10/17/24 05:22 Carbon Dioxide 24 mEq/L (21-32) 10/17/24 05:22 Anion Gap 10.3 mEq/L (5.0-15.0) 10/17/24 05:22 BUN 23 mg/dL (7-18) H 10/17/24 05:22 Creatinine 1.45 mg/dL (0.55-1.02) H 10/17/24 05:22 Est GFR (CKD-EPI) 38 ml/min (=/>90) L 10/17/24 05:22 Glucose 189 mg/dL (74-106) H 10/17/24 05:22 POC Glucose 199 mg/dL (65-120) H 10/17/24 06:43 Calcium 9.4 mg/dL (8.5-10.1) 10/17/24 05:22 Magnesium 1.4 mg/dL (1.6-2.4) L 10/17/24 05:22 Albumin 2.8 g/dL (3.4-5.0) L 10/17/24 05:22 Prealbumin 16.3 mg/dL (20-40) L 10/17/24 05:22 Urine Color Light-yellow (Yellow) 10/16/24 23:30 Urine Clarity Clear (Clear) 10/16/24 23:30 Urine pH 6.5 (5.0-7.0) 10/16/24 23:30 Ur Specific Marianna 1.008 (1.005-1.030) 10/16/24 23:30 Glucose (UA)(Auto) 3+ (Negative) H 10/16/24 23:30 Urine Ketones Negative (Negative) 10/16/24 23:30 Urine Blood Trace (Negative) H 10/16/24 23:30 Urine Nitrite Negative (Negative) 10/16/24 23:30 Urine Bilirubin Negative (Negative) 10/16/24 23:30 Urine Urobilinogen Normal (Normal) 10/16/24 23:30 Ur Leukocyte Esterase Negative Miguel/uL (Negative) 10/16/24 23:30 Urine RBC <5 /HPF (None Seen) 10/16/24 23:30 Urine WBC <5 /HPF (<5) 10/16/24 23:30 Ur Squamous Epith Cells <5 /HPF (None Seen) 10/16/24 23:30 U Non-Squamous Epi Cells <5 /HPF (None Seen) 10/16/24 23:30 Urine Bacteria None seen /HPF (<20) 10/16/24 23:30 Urine Culture Reflexed Not needed 10/16/24 23:30 Urine Total Protein 2+ (Negative) H 10/16/24 23:30 Weight: 180 lb 14.4 oz Closed Surgical Incision Present: Yes Physician Update: Labs reviewed. Mag low at 1.4. Will give mag 2 grams IV and 400 mg bid oral. K is 3.3 with give 20 meq and 10 bid. Mod pain, will add gabapentin 100 mg bid for central pain. Comment: Bruising on right wrist,right lower leg Summary: Patient's care plan and supervisor intermediates goals have been reviewed and revised as necessary. Please see the Rehabilitation Signature page for all necessary signatures.
[2024-10-17] MEDS: POTASSIUM 25 MEQ EFFERV TAB PO ONE (10:45)
[2024-10-17] MEDS: Magnesium Sulfate 2gm IVPB 2 G/50 ML BAG IV ONE (10:45)
[2024-10-17] MEDS: PNEUMOCOCCAL VACCINE 0.5 ML IMVAC ONE (11:00)
[2024-10-17] MEDS: METFORMIN HCL 500 MG TAB PO SCH (16:56)
[2024-10-17] MEDS: GABAPENTIN 100 MG CAP PO SCH (19:49)
[2024-10-17] MEDS: ATORVASTATIN 40 MG TAB PO SCH (19:49)
[2024-10-17] MEDS: MAGNESIUM OXIDE 400 MG TAB PO SCH (19:50)
[2024-10-17] MEDS: clonazePAM 1 MG TAB PO PRN (21:23)
[2024-10-18 05:44] LABS: Anion Gap 10.5 mEq/L (5.0-15.0); Potassium 3.5 mEq/L (3.5-5.1)
[2024-10-18] MEDS: DULOXETINE 30 MG CAP PO SCH (08:25)
[2024-10-18] MEDS: POTASSIUM CL SA 10 MEQ TAB PO SCH (08:26)
[2024-10-18] MEDS: ACETAMINOPHEN 500 MG TAB PO PRN (13:57)
[2024-10-18] MEDS: METFORMIN HCL 500 MG TAB PO SCH (16:57)
[2024-10-18] MEDS: SODIUM CHLORIDE 1 GM TAB PO SCH (16:57)
[2024-10-18] MEDS: TRAMADOL HCL 50 MG TAB PO PRN (20:26)
[2024-10-19] MEDS: CRANBERRY FRUIT EXTRACT 200 MG CAP PO SCH (20:14)
--- NOTE | 2024-10-20 05:41 | HP ---
Date of Admission: 10/16/2024 Time Of Service: 9 a.m. Chief Complaint: "I had a stroke. I need to get stronger and go home." History Of Present Illness: Ms. Gotti is a 74-year-old patient with diabetes mellitus type 2, hype rtension, lupus, rheumatoid arthritis, coronary artery disease, smoker, and history of breast cancer, who presented to the emergency department on 10/12 with dizziness and unsteady gait. 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 She had a non-ST-seg ment myocardial infarction and the comorbidities of diabetes, depression, rheumatoid arthritis, hyper tension and she was not felt to be within the window for TNK since the time of onset was beyond 4-1/2 hours from her symptoms beginning in the emergency room. She was seen by Cardiology and had a left heart catheterization and placed on dual antiplatelets and statin therapy. Blood sugars monitored an d addressed, labs as well. Evaluation by therapy service found that she had significant incoordinati on, some diffuse weakness on the right side, hyponatremia, hyperglycemia. Prior to the onset of her event, which was sometime of her admission. 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 Currently after the events, she has minimum assistance requirement fo r bed mobilization, contact guard assistance for performing [id number]-[id number] and ambulation with a gina g walker due to the unsteady, ataxic gait with vertiginous type dizziness symptoms. She is performin g well below her baseline where she is independent and therefore with aggressive therapy should be ab le to return toward her prior level of functioning, and in parallel, her comorbid conditions may be a ddressed and stably managed to reduce her risk of rehospitalization and help her return to her prior level of functioning. Past Medical History: Hypertension, diabetes, lupus, rheumatoid arthritis, coronary artery disease, depression, anxiety, smoker, peripheral artery disease, dyslipidemia, sleep apnea, breast cancer. Past Surgical History: , hysterectomy, tonsillectomy, incision and drainage of infection of the thumb, bladder suspension, left third toe amputation, and left breast lumpectomy. Allergies: DOXYCYCLINE, SULFAMETHOXAZOLE, AND TRIMETHOPRIM. Medications: Tylenol 500 mg every 4 hours as needed, Xanax 0.25 mg 3 times daily , Norvasc 10 mg daily, Eliquis 5 mg twice daily, Lipitor 40 mg at bedtime, Klonopin 1 mg up to 3 times daily a s needed, clonidine 0.1 mg for systolic blood pressure greater than 170 every 4 hours as needed, Cymb lucio delayed release 30 mg daily, folic acid 1 mg daily, gabapentin 100 mg twice daily. She has mild insulin scale. Cozaar 50 mg twice daily, magnesium oxide 400 mg twice daily, Antivert 25 mg 3 times daily as needed, melatonin 3 mg at bedtime as needed for insomnia, metformin 500 mg twice daily, Lop ressor 50 mg twice daily, Nitrostat 0.4 mg sublingual as needed every 4 hours, Ensure Enlive 237 mL d aily, potassium 10 mEq daily. Laboratory Studies: White blood cell count is 8.0, hemoglobin 13.6, platelets are 226. Sodium 134, potassium 3.3, chloride 103, carbon dioxide 24, BUN 23, creatinine 1.45, glucose ranged from 189 to 3 22, calcium 9.4, magnesium 1.4, albumin 2.8, prealbumin 16.3. Urinalysis is 3+ glucose, trace blood, 2+ total protein. Imaging: Brain MRI on shows areas of narrowing involving the middle and posterior cerebra l arteries bilaterally. No large vessel occlusion. Echocardiogram on 10/12 shows normal left ventri cular ejection fraction of 55% to 60% with normal wall motion. There is grade 1 diastolic dysfunctio n. Also severe mitral annular calcification and mild mitral regurgitation identified. Family History: Noncontributory. Social History: No current alcohol, tobacco, or IV drug use. Patient lives in a single family home. She was primary caregiver for her granddaughter. Review of Systems: She does have the incoordination as noted in right side, mild weakness in upper and lower extremities at times. Prior to the admission, atypical chest pain, which is not present at this point. No rash . No myalgias, arthralgias. There is occasional verycontrolled at this point. Current Level Of Functioning: Eating is at setup assistance. Oral hygiene as well setup assistance. Her toileting is contact guard assistance. Showering, moderate assistance. Upper body dressing, c ontact guard. Lower body dressing, moderate assistance. Donning and doffing footwear, moderate assi stance required. Rolling rkbt-ge-[id number], sit to lying between supervision and moderate assistance req uired. Going from a lying to sitting on side of bed, moderate assistance required. Supervision for gil-ny-ydbpu. Moderate assistance required for transfer from bed to chair and back to the bed. For toilet transfers, moderate assistance. Ambulation, she covered 250 feet with a rolling walker with s upervision. Physical Examination: Vital Signs: Blood pressure 140/67, pulse 59, respiratory rate 16, temperature 98.1, oxygen saturati on 94%. General: Bridgett is resting comfortably in a chair beside the bed. HEENT: She is normocephalic, atraumatic. Sclerae anicteric. Oropharynx moist. Neck: Supple. Chest: Clear. Heart: Regular. Extremities: No significant clubbing, cyanosis, or edema noted. She does have some incoordination i n the right upper and lower extremity. Mild diffuse weakness noted, perhaps certainly around 5- ____ in upper and lower extremities. Face is symmetric. She does not have any significant sensory deficits [id number]. Mild stocking-glove loss. Rehab And Medical Assessment And Plan: Ms. Gotti is admitted to the inpatient rehabilitation unit with impairment category 01, stroke. Her impairment group code 01.2 and stroke with no focal paresis with incoordination. Etiologic diagnosis, cardioembolic stroke in moderate posterior circulation an d frontal region. Comorbidities are decreased mobility, decreased physical functioning, diabetes brigitte litus, hypertension, lupus, ach-SZ-rfdywsi myocardial infarction, rheumatoid arthritis, peripheral ar valdez disease, with ulcer of the right lower extremity, also hyponatremia . She will have physical, occupational, and speech therapy for 3-1/2 hours, 5 of 7 days. In addition, we will continue Norvasc for blood pressure control at 10 mg daily. The beta-belgica, Lopressor, holly l be continues. She has metformin for her diabetes mellitus management and sliding scale, which is m ild. Ensure Enlive for malnutrition. Potassium replacement on board. She has Nitrostat for chest p ain, melatonin for insomnia, Antivert for the vertiginous symptoms, magnesium oxide for muscle spasms , Cozaar to manage blood pressure. Duloxetine antidepressant and for her neuropathic pain. Clonidin e for very elevated blood pressures as needed 1 mg. clonazepam for anxiety, Lipitor for dyslipidemia , Xanax for anxiety, and Tylenol Extra Strength for amwh-bu-pkznsebb pain. Comorbidities That Are Impacting Rehabilitation: She has a number of comorbid conditions. At this p oint, the risk of additional strokes present. The patient did have apparent cardioembolic events. C urrently, she is on the Eliquis 5 mg twice daily for that. That puts her at increased risk of bleedi ng from noncompressible sites if there is such impact or abdominal area impact. Fall pre cautions therefore admitted to all times, ambulate with a walker, gait belt and a chair in with the therapist very closely next to the patient. Rehab Specific Plan: Ms. Gotti will have physical, occupational, and speech therapy for 3-/1/2 genna rs, 5 of 7 days to improve her ability to transfer from bed to chair, to a wheelchair, to a toilet, t o shower and to perform toileting and showering, to be able to ambulate 250 feet with independence, t o be able to go up and down 10 steps with independence, to mobilize a wheelchair with independence an d to perform cognitive functioning with independence. Ms. Gotti has a good understanding of the process of admission to the inpatient rehabilitation [facility] and how she will benefit from physical, occupational, and speech therapy. She will have 24 hour s a day, 7 days a week skilled rehabilitation nursing, daily physician evaluation and management, and perinatal social worker evaluation and management for discharge planning, home equipment, and followup and c ontinuation of therapy. If need be, the hospitalist service may be involved to help with diagnostic issues that may come in. Barriers To Discharge: She has again significant risk of bleeding because of the Eliquis, which is o n board for reducing risk of stroke. There is a possibility of fall and that can lead to severe blee ding in a noncompressible site, so fall precautions strictly adhered to. The location of her stroke makes coordination an issue and that again is a risk of falling. Length Of Stay: About 12 to 14 days. Disposition: Home with family and continue therapy via home health. Prognosis: Good. Code Status: Full code. Rehab Specific Goals: 1.Become independent with upper and lower body dressing and donning and doffing footwear. 2.Independently mobilize 250 feet with a wheelchair and walker and go up and down 10 steps with bila teral handrails. 3.Independently perform cognitive functioning including decision making and safety awareness issues. The above goals were reviewed with Maury Shen and she is in agreement. By signing this document, I acknowledge I personally performed a full physical examination on Ms. Scott dinero no later than 24 hours after her admission to the inpatient rehabilitation facility and determin ed that she is able to tolerate the above course of treatment at an intensive level for a reasonable period of time. A detailed individualized plan of care for her will be completed by hospital day 4 b ased on the preadmission screen, history and physical and therapy evaluations. HAY Voice ID: [id number]
[2024-10-20] MEDS: GLUCERNA SHAKE 237 ML CAN PO SCH (08:00)
--- NOTE | 2024-10-20 23:58 | PN ---
Date of Progress Note: 10/20/2024 Time Of Service: 1:20 p.m. Subjective: Ms. Bridgett Gotti is doing excellent. She is ambulating well around the unit. She has no new complaints. She is ready to go home and will be discharged in the morning. Objective: No fevers, chills, nausea, vomiting, myalgias, arthralgias, rash, headaches, weight change, very happy with therapy so far. Physical Examination: Vital Signs: Blood pressure 135/79, pulse 55, respiratory rate 16, temperature 97.4, oxygen saturation 93%. General: Ms. Gotti is sitting at the side of bed. HEENT: Normocephalic, atraumatic. Sclerae are anicteric. Oropharynx pink and moist. Neck: Supple. Chest: Clear. Heart: Regular. Neurologic: She has mild incoordination and significant focal neurological deficits. Laboratory Studies: White blood cell count 8.0, hemoglobin 13.6, platelets are 226. Blood glucose ranged from 144 to 172. X-ray/imaging: No new x-ray or imaging. Medications: Tylenol 500 mg every 4 hours as needed, Norvasc 10 mg daily, Eliquis 5 mg twice daily, Lipitor 40 mg at bedtime, Klonopin 0.1 mg 3 times daily as needed for anxiety, clonidine 0.1 mg every 4 hours as needed, Cymbalta 30 mg daily, Glucerna 237 mL twice daily, folic acid 1 mg daily, gabapentin 100 mg twice daily, Cozaar 50 mg twice daily, magnesium oxide 400 mg twice daily, meclizine 25 mg 3 times daily, melatonin 3 mg at bedtime, metformin 1000 mg twice daily, Lopressor 50 mg twice daily, Nitrostat 0.4 mg sublingual as needed, potassium 10 mEq daily, sodium chloride 1 g twice daily, tramadol 50 mg every 4 hours as needed. Progress Made With Physical And Occupational Therapy: Today with physical therapy, gait training, completed 250 feet with a Rollator independently, walked another 50 feet without an assistive device, slow gait. Completed stair management 20 steps with modified independence, bilateral handrails. Toilet transfers, modified independence. Bed mobility with modified independence. Multiple qqv-xb-hkcgf transfer, pivot transfer, modified independence. Wheelchair mobilization of 250 feet with independence. Regarding occupational therapy, shower independent using a tub bench. Multiple transfers bed, toilet, shower, all independent. Did Thera-Band exercises, 20 repetitions very well. Independent with all aspects of activities of daily living, ready for discharge home. Assessment And Plan: Ms. Gotti is a 74-year-old patient admitted to rehabilitation unit with cardioembolic stroke from which she is recovering in excellent fashion. She has very little decreased mobility and decreased physical functioning and recovered very well. Her comorbidities do include atrial fibrillation, from which she is on Eliquis. Pain managed by tramadol, hyponatremia with sodium replacement, Lopressor for blood pressure management, diabetes mellitus managed with metformin, melatonin for insomnia, Antivert for her vertigo related to her posterior circulation stroke, gabapentin for neuropathic pain, duloxetine for depression, Lipitor for dyslipidemia, Norvasc for blood pressure management. She will be discharged home in the morning and continue therapy via home health. JUANI/OLIMPIA Voice ID: [id number] Report ID: [id number] RYLAN
[2024-10-21 06:56] VITALS: BP 131/60; TEMP 97.7
== END 2024-10-21 11:45 | disposition home or self-care (01) | DRG 57 ==
LOC: 5TH 21:30
PROVIDERS: ADMIT Psychiatry & Neurology Neurology with Special Qualifications in Child Neurology; ATTEND Psychiatry & Neurology Neurology with Special Qualifications in Child Neurology
DX: I69.398 Other sequelae of cerebral infarction (principal); R26.89 Other abnormalities of gait and mobility; I10 Essential (primary) hypertension; E11.9 Type 2 diabetes mellitus without complications; M32.9 Systemic lupus erythematosus, unspecified; M06.9 Rheumatoid arthritis, unspecified; I25.10 Atherosclerotic heart disease of native coronary artery without angina pectoris; F32.A Depression, unspecified; F41.9 Anxiety disorder, unspecified; I73.9 Peripheral vascular disease, unspecified; E78.5 Hyperlipidemia, unspecified; G47.30 Sleep apnea, unspecified; C50.919 Malignant neoplasm of unspecified site of unspecified female breast; F17.200 Nicotine dependence, unspecified, uncomplicated
CPT/HCPCS: 36415; 80048; 81001; 82040; 82947; 83735; 84134; 85025; 87077; 87086; 87088; 87186; 97110; 97112; 97116; 97161; 97165; 97530; 97542; J3475

== ENCOUNTER 2025-03-02 13:05 | Emergency (ER) | payer OTHER ==
--- OUTSIDE RECORDS SUMMARY | 2025-03-02 13:09 | XMS REPORT | Clinical Summary ---
Author Name Unknown Organization [facility] [place] Address [address] [place] [address] Care Team Providers Care Plan Nurse Name Role Phone Kyle Godinez Unavailable [phone] Jessy Munroe MD Unavailable [phone] Andrea Martinez MD Primary Care Provider Susanna Hayes MD Unavailable [phone] Allergies Active Allergy Reactions Criticality Noted Date [...] from 03/21/2023:Stage IB(cT2, cN0(f), cM0, G2, ER+, HI+, HER2-) - Unsigned Pathologic:Stage IA(pT1a, pN0, cM0, G2, ER+, HI+, HER2-) - Signed by Andrea Martinez MD on 06/19/2023 Overview (05/21/2023): Added automatically from request for surgery [id number] Systemic lupus erythematosus 12/08/2015 Hypertensive disorder 12/08/2015 [...] Due Date Last Done Comments Pneumococcal Vaccine: 50+ Ye ars (1 of 2 - PCV) 1969 COVID-19 Vaccine (3 - 2023- season) 07/27/202407/2021, 02/11/2021 Influenza Vaccine (#1) 2024 10/17/2019 Insurance MEDICARE PART [place] [id number] Care Teams Plan Nurse Relationship Specialty Start Date End Date Kyle Godinez PA [address] [place] [address] PCP - External Primary Care Provider Family Practice 04/20/23 Jessy Munroe MD [address] [address] PCP - External Referring Surgical Oncology 04/20/23 Andrea Martinez MD [facility] [place] [address] [email or web address] PCP - General Breast Medical Oncology 05/08/23 Susanna Hayes MD [facility] [place], [place] [id number] [email or web address] Physician Radiation Oncology 06/22/23
[2025-03-02 13:50] LABS: Absolute Basophils 0.1 K/uL (0-0.5); Absolute Eosinophils 0.1 K/uL (0-0.5); Absolute Lymphocytes (CBC) 1.5 K/uL (0.7-4.9); Absolute Monocytes 0.7 K/uL (0.1-1.3); Absolute Neutrophil 3.3 K/uL (1.8-8.0); Basophils % 1.1 % (0-1.3); Eosinophils % 1.7 % (0-4.4); Hematocrit 43.1 % (36.0-45.0); Hemoglobin 15.3 g/dL (12.0-15.0); Lymphocytes % 26.5 % (15.3-44.8); MCH 31.5 pg (27.0-35.0); MCHC 35.4 g/dL (32.0-36.0); MCV 88.9 fL (80-100); MPV 9.3 fL (7.6-11.3); Monocytes % 11.7 % (3.3-12.3); Nucleated Red Blood Cells % 0.1 % (0-0); Platelets 217 thou/uL (152-406); RBC Red Blood Cell Count 4.85 M/uL (3.86-4.86); Red Cell Distribution Width 12.9 % (12.1-15.2)
[2025-03-02 13:53] LABS: PT Prothrombin Time 11.7 SECONDS (10-13.0); Protime INR 1.03
[2025-03-02 14:08] LABS: Influenza A Ag Negative; Influenza B Ag Negative; SARS-CoV-2 Antigen Rapid Res Negative (Negative)
[2025-03-02 14:14] LABS: Albumin 3.2 g/dL (3.4-5.0); Albumin/Globulin Ratio 0.6 (1.1-1.8); Anion Gap 9.5 mEq/L (5.0-15.0); Bilirubin Direct 0.2 mg/dL (0-0.2); Bilirubin Indirect, Calculated 0.6 mg/dL (0.2-0.8); Bilirubin Total 0.8 mg/dL (0.2-1.0); Globulin 5.1 g/dL (2.3-3.5); Magnesium 1.6 mg/dL (1.6-2.4); Potassium 4.5 mEq/L (3.5-5.1); Protein, Total 8.3 g/dL (6.4-8.2)
[2025-03-02] MEDS ORDERED: MECLIZINE HCL 12.5 MG TAB ONE (14:32)
--- NOTE | 2025-03-02 15:13 | EDPHYS ---
Physician Documentation [facility] Name: Bridgett Gotti Age: 74 yrs Sex: Female : 1950 Arrival Date: 03/02/2025 Time: 13:05 Bed 4 Private MD: ED Physician El Acosta HPI: 03/02 13:27 This 74 yrs old Female presents to ER via Unassigned with complaints of Dizziness, Ear sp3 Pain, Leg Pain. 13:27 74-year-old female with history of hypertension, prior NSTEMI, atrial fibrillation, sp3 prior breast cancer, diabetes now presents to the ED with chief complaint of dizziness, chest pressure and sinus congestion. Symptoms have been occurring over the last 24 hours. She states that it is worse when she gets up and she has additional vertigo. CT scan of the head 5 months ago when she had similar symptoms was negative. She denies fever, neck pain, abdominal pain, nausea, vomiting, diarrhea, syncope, rash, bleeding, or any other signs or symptoms on ROS at this time.. Historical: - Allergies: 13:27 Bactrim; ss 13:27 Doxycycline; ss 13:27 Sulfa (Sulfonamide Antibiotics); ss - PMHx: 13:27 Atrial fibrillation; Back pain; breast cancer (Unknown); Depression; Diabetes - NIDDM; ss Enteritis; Hypertension; Lupus; Rheumatoid Arthritis; Sleep Apnea; - PSHx: 13:27 hysterectomy; L foot surgery x 3; Left lumpectomy; ss - Immunization history:: Adult Immunizations unknown. - Infectious Disease History:: Denies. - Social history:: Smoking status: Patient/guardian denies using tobacco, but has a distant history of tobacco abuse. ROS: 13:28 Constitutional: Negative for fever, chills, and weight loss, Eyes: Negative for injury, sp3 pain, redness, and discharge, Neck: Negative for injury, pain, and swelling, Respiratory: Negative for shortness of breath, cough, wheezing, and pleuritic chest pain, Abdomen/GI: Negative for abdominal pain, nausea, vomiting, diarrhea, and constipation, Back: Negative for injury and pain, MS/Extremity: Negative for injury and deformity, Skin: Negative for injury, rash, and discoloration, Neuro: Negative for headache, weakness, numbness, tingling, and seizure, Psych: Negative for depression, anxiety, suicide ideation, homicidal ideation, and hallucinations, Allergy/Immunology: Negative for hives, rash, and allergies, Endocrine: Negative for neck swelling, polydipsia, polyuria, polyphagia, and marked weight changes, Hematologic/Lymphatic: Negative for swollen nodes, abnormal bleeding, and unusual bruising, 13:28 All other systems are negative, Exam: 13:28 Constitutional: This is a well developed, well nourished patient who is awake, alert, sp3 and in no acute distress. Head/Face: Normocephalic, atraumatic. Eyes: Pupils equal round and reactive to light, extra-ocular motions intact. Lids and lashes normal. Conjunctiva and sclera are non-icteric and not injected. Cornea within normal limits. Periorbital areas with no swelling, redness, or edema. ENT: Nares patent. No nasal discharge, no septal abnormalities noted. External auditory canals are clear. Oropharynx with no redness, swelling, or masses, exudates, or evidence of obstruction, uvula midline. Mucous membranes moist. Neck: Trachea midline, no thyromegaly or masses palpated, and no cervical lymphadenopathy. Supple, full range of motion without nuchal rigidity, or vertebral point tenderness. No Meningismus. Chest/axilla: Normal chest wall appearance and motion. Nontender with no deformity. No lesions are appreciated. Cardiovascular: Regular rate and rhythm with a normal S1 and S2. No gallops, murmurs, or rubs. Normal PMI, no JVD. No pulse deficits. Respiratory: Lungs have equal breath sounds bilaterally, clear to auscultation and percussion. No rales, rhonchi or wheezes noted. No increased work of breathing, no retractions or nasal flaring. Abdomen/GI: Soft, non-tender, with normal bowel sounds. No distension or tympany. No guarding or rebound. No evidence of tenderness throughout. Back: No spinal tenderness. No costovertebral tenderness. Full range of motion. Skin: Warm, dry with normal turgor. Normal color with no rashes, no lesions, and no evidence of cellulitis. MS/ Extremity: Pulses equal, no cyanosis. Neurovascular intact. Full, normal range of motion. Neuro: Awake and alert, GCS 15, oriented to person, place, time, and situation. Cranial nerves II-XII grossly intact. Motor strength 5/5 in all extremities. Sensory grossly intact. Cerebellar exam normal. Normal gait. Psych: Awake, alert, with orientation to person, place and time. Behavior, mood, and affect are within normal limits. 13:43 ECG was reviewed by the Attending Physician. EKG demonstrates normal sinus rhythm at 68 sp3 bpm with normal intervals except [place] of 212 with first-degree AV block, leftward axis and nonspecific diffuse ST/T changes without evidence of acute ischemia. Vital Signs: 13:19 BP 188 / 93; Pulse 72; Resp 16; Temp 98.1(O); Pulse Ox 99% on R/A; Weight 85.73 kg; ss Height 5 ft. 1 in. ; Pain 7/10; 13:46 BP 149 / 71; Pulse 67; Resp 20; Pulse Ox 97% ; Pain 7/10; jl7 14:00 BP 131 / 74; Pulse 64; Resp 18; Pulse Ox 96% ; me1 14:34 BP 143 / 73 Supine; Pulse 64; me1 14:35 BP 141 / 67 Sitting; Pulse 65; me1 14:36 BP 133 / 75 Standing; Pulse 67; me1 15:00 BP 147 / 69; Pulse 64; Resp 15; Pulse Ox 98% ; me1 13:19 Body Mass Index 35.71 (85.73 kg, 154.94 cm) ss 13:19 Pain Scale: Adult ss 13:46 Pain Scale: Adult jl7 MDM: 13:17 Medical Screening Exam initiated sp3 13:30 Data reviewed: vital signs, nurses notes, old medical records, lab test result(s), EKG, sp3 radiologic studies. 13:31 ED course: 74-year-old female with PMH above now with dizziness congestion and chest sp3 pressure. Differential diagnosis includes viral illness, sinus infection, COVID-19, influenza, CHF, acute coronary syndrome, among others. I am not highly suspicious of pneumonia, sepsis, TAD, PE, or any other critical process. Vital signs are normal with mild elevation in BP only. Patient is resting comfortably at the moment in no acute distress. Disposition pending workup and patient course.. 14:29 ED course: All symptoms have resolved. Will obtain 1 more troponin level. Also give sp3 meclizine 25 mg p.o. Orthostatics also pending. If workup negative and patient continues to be improved, we will safely discharge her home.. 15:12 ED course: Repeat troponin negative. We will safely discharge patient home on meclizine sp3 and follow-up with her PCP.. 03/02 13:19 Order name: Basic Metabolic Panel; Complete Time: 14:19 sp3 03/02 13:19 Order name: CBC with Diff; Complete Time: 14:08 sp3 03/02 13:19 Order name: LFT's; Complete Time: 14:19 sp3 03/02 13:19 Order name: Magnesium; Complete Time: 14:19 sp3 03/02 13:19 Order name: NT PRO-BNP; Complete Time: 14:19 sp3 03/02 13:19 Order name: PT-INR; Complete Time: 14:08 sp3 03/02 13:19 Order name: Troponin HS; Complete Time: 14:19 sp3 03/02 13:32 Order name: COVID-19 Ag + Flu A+B Ag; Complete Time: 14:19 sp3 03/02 14:29 Order name: Troponin High Sensitivity; Complete Time: 15:12 sp3 03/02 13:19 Order name: Cardiac monitoring; Complete Time: 13:44 sp3 03/02 13:19 Order name: EKG - Nurse/Tech; Complete Time: 13:44 sp3 03/02 13:19 Order name: IV Saline Lock; Complete Time: 13:44 sp3 03/02 13:19 Order name: Labs collected and sent; Complete Time: 13:44 sp3 03/02 13:19 Order name: O2 Per Protocol; Complete Time: 13:44 sp3 03/02 13:19 Order name: O2 Sat Monitoring; Complete Time: 13:44 sp3 03/02 14:29 Order name: Orthostatics; Complete Time: 14:41 sp3 Administered Medications: 14:35 Drug: Meclizine PO 25 mg PO once Route: PO; me1 15:22 Follow up: Response: No adverse reaction me1 Disposition Summary: 03/02/25 15:13 Discharge Ordered Notes: Location: Home sp3 Condition: Stable sp3 Diagnosis - Dizziness, chest pressure resolved sp3 Followup: sp3 - With: Private Physician - When: Upon discharge from the Emergency Department - Reason: Continuance of care Discharge Instructions: - Discharge Summary Sheet sp3 - Dizziness sp3 Forms: - Medication Reconciliation Form sp3 - Antibiotic Education sp3 - Prescription Opioid Use sp3 - Patient Portal Instructions sp3 - Leadership Thank You Letter sp3 Prescriptions: - Meclizine 25 mg Oral Tablet - take 1 tablet ORAL route every 8 hours As needed; 30 tablet; Refills: 0, sp3 Product Selection Permitted Signatures: Dispatcher [employer] EDMS Nikkie Bowden RN RN ss Lindsay Baldwin RN RN jl7 lE Acosta MD MD sp3 Sis Li RN RN me1 Corrections: (The following items were deleted from the chart) 13:19 13:19 BASIC METABOLIC PANEL+C.LAB.BRZ ordered. EDMS EDMS 13:19 13:19 CBC+H.LAB.BRZ ordered. EDMS EDMS 13:19 13:19 HEPATIC FUNCTION+C.LAB.BRZ ordered. EDMS EDMS 13:19 13:19 MAGNESIUM+C.LAB.BRZ ordered. EDMS EDMS 13:19 13:19 PROBNP+C.LAB.BRZ ordered. EDMS EDMS 13:19 13:19 PROTIME (+INR)+COAG.LAB.BRZ ordered. EDMS EDMS 13:19 13:19 Troponin High Sensitivity+C.LAB.BRZ ordered. EDMS EDMS 13:31 13:27 74-year-old female with history of hypertension, prior NSTEMI now presents to the 3 ED with chief complaint of dizziness, chest pressure and sinus congestion. Symptoms have been occurring over the last 24 hours. She states that it is worse when she gets up and she has additional vertigo. CT scan of the head 5 months ago when she had similar symptoms was negative. She denies fever, neck pain, abdominal pain, nausea, vomiting, diarrhea, syncope, rash, bleeding, or any other signs or symptoms on ROS at this time.. 3 13:33 13:33 COVID-19 Ag + Flu A+B Ag+I.LAB.BRZ ordered. EDMS EDMS
--- NOTE | 2025-03-02 15:13 | ER ---
Nurse's Notes [facility] Name: Bridgett Gotti Age: 74 yrs Sex: Female : 1950 Arrival Date: 03/02/2025 Time: 13:05 Bed 4 Private MD: Diagnosis: Dizziness, chest pressure resolved Presentation: 03/02 13:19 Chief complaint: Patient states: bilateral ear pain and dizziness that began 1 week ss ago. Coronavirus screen: Client denies travel out of the [place] in the last 14 days. Ebola Screen: Patient denies exposure to infectious person. Patient denies travel to an Ebola-affected area in the 21 days before illness onset. Initial Sepsis Screen: Does the patient meet any 2 criteria? No. Patient's initial sepsis screen is negative. Does the patient have a suspected source of infection? No. Patient's initial sepsis screen is negative. Risk Assessment: Do you want to hurt yourself or someone else? Patient reports no desire to harm self or others. Onset of symptoms was February 24, 2025. 13:19 Method Of Arrival: Wheelchair ss 13:19 Acuity: LASHONDA 3 ss Historical: - Allergies: 13:27 Bactrim; ss 13:27 Doxycycline; ss 13:27 Sulfa (Sulfonamide Antibiotics); ss - PMHx: 13:27 Atrial fibrillation; Back pain; breast cancer (Unknown); Depression; Diabetes - NIDDM; ss Enteritis; Hypertension; Lupus; Rheumatoid Arthritis; Sleep Apnea; - PSHx: 13:27 hysterectomy; L foot surgery x 3; Left lumpectomy; ss - Immunization history:: Adult Immunizations unknown. - Infectious Disease History:: Denies. - Social history:: Smoking status: Patient/guardian denies using tobacco, but has a distant history of tobacco abuse. Screenin:47 [facility] ED Fall Risk Assessment (Adult) History of falling in the last 3 months, jl7 including since admission No falls in past 3 months (0 pts) Confusion or Disorientation No (0 pts) Intoxicated or Sedated No (0 pts) Impaired Gait No (0 pts) Mobility Assist Device Used No (0 pt) Altered Elimination No (0 pt) Score/Fall Risk Level 0 - 2 = Low Risk Oriented to surroundings, Maintained a safe environment. Abuse screen: Denies threats or abuse. Denies injuries from another. Nutritional screening: No deficits noted. Tuberculosis screening: No symptoms or risk factors identified. Assessment: 13:47 General: Appears in no apparent distress. uncomfortable, Behavior is calm, cooperative. jl7 Pain: Complains of pain in anterior aspect of left upper chest Pain currently is 7 out of 10 on a pain scale. Quality of pain is described as "it's just there" Pain began 4 days ago Is intermittent. Neuro: Scales Agitation-Sedation Scale (RASS): 0 - Alert and Calm Level of Consciousness is awake, alert, obeys commands, Oriented to person, place, time, situation. Cardiovascular: Patient's skin is warm and dry. Respiratory: Airway is patent Respiratory effort is even, unlabored, Respiratory pattern is regular, symmetrical. EENT: Reports pain in left ear. Derm: Skin is pink, warm \\T\\ dry. Vital Signs: 13:19 BP 188 / 93; Pulse 72; Resp 16; Temp 98.1(O); Pulse Ox 99% on R/A; Weight 85.73 kg; ss Height 5 ft. 1 in. ; Pain 7/10; 13:46 BP 149 / 71; Pulse 67; Resp 20; Pulse Ox 97% ; Pain 7/10; jl7 14:00 BP 131 / 74; Pulse 64; Resp 18; Pulse Ox 96% ; me1 14:34 BP 143 / 73 Supine; Pulse 64; me1 14:35 BP 141 / 67 Sitting; Pulse 65; me1 14:36 BP 133 / 75 Standing; Pulse 67; me1 15:00 BP 147 / 69; Pulse 64; Resp 15; Pulse Ox 98% ; me1 13:19 Body Mass Index 35.71 (85.73 kg, 154.94 cm) ss 13:19 Pain Scale: Adult ss 13:46 Pain Scale: Adult jl7 ED Course: 13:08 Patient arrived in ED. cj3 13:08 El Acosta MD is Attending Physician. sp3 13:27 Triage completed. ss 13:27 Arm band placed on right wrist. ss 13:44 Lindsay Baldwin, ILAN is Primary Nurse. jl7 13:47 Patient has correct armband on for positive identification. Bed in low position. Call jl7 light in reach. Side rails up X 1. Provided Education on: use of call ramirez. Client placed on continuous cardiac and pulse oximetry monitoring. NIBP monitoring applied. monitoring engineer on. Warm blanket given. 13:47 Initial lab(s) drawn, by me, sent to lab. EKG done, by ED staff, reviewed by El Acosta MD. Inserted saline lock: 20 gauge in right forearm, using aseptic technique. Blood collected. Flushed with 10 mL NS. 15:22 No provider procedures requiring assistance completed. IV discontinued, intact, me1 bleeding controlled, No redness/swelling at site. Pressure dressing applied. Administered Medications: 14:35 Drug: Meclizine PO 25 mg PO once Route: PO; me1 15:22 Follow up: Response: No adverse reaction me1 Medication: 13:47 VIS not applicable for this client. suzanne Outcome: 15:13 Discharge ordered by . sp3 15:22 Discharged to home via wheelchair, with family, me1 15:22 Condition: stable 15:22 Discharge instructions given to patient, family, Instructed on discharge instructions, follow up and referral plans. medication usage, Demonstrated understanding of instructions, follow-up care, medications, Prescriptions given X 1, 15:23 Patient left the ED. me1 Signatures: Nikkie Bowden, RN RN Lindsay Jane RN RN El Wise MD MD sp3 Sis Li RN RN me1 Kaylyn Gotti 3 Corrections: (The following items were deleted from the chart) 14:43 14:00 BP 143 / 73 Supine; Pulse 64bpm; me1 me1 14:43 14:00 BP 141 / 67 Sitting; Pulse 65bpm; me1 me1 14:43 14:00 BP 133 / 75 Standing; Pulse 67bpm; me1 me1
[2025-03-02 15:34] VITALS: TEMP 98.1
[2025-03-02 15:44] VITALS: BP 147/69; O2SAT 98
--- NOTE | 2025-03-03 10:56 | EKG ---
Test Date: 2025-03-02 Test Time: 13:30:58 Motel Front Desk Clerk: MACK MEASUREMENT RESULTS: Intervals: Rate: 68 ND: 212 QRSD: 128 QT: 438 QTc: 465 [place]: P: 71 ND: 212 QRS: -71 T: 77 INTERPRETIVE STATEMENTS: Sinus rhythm with 1st degree AV block Right bundle branch block Left anterior fascicular block Bifascicular block Moderate voltage criteria for LVH, may be normal variant Abnormal ECG Compared to ECG 10/12/2024 14:12:11 Early repolarization no longer present Myocardial infarct finding no longer present Bifascicular block still present Electronically Signed On 03-03-25 10:55:08 CDT by Parmjit Meadows
== END 2025-03-02 15:23 | disposition home or self-care (01) ==
LOC: ER 13:05
DX: R42 Dizziness and giddiness (principal); R09.81 Nasal congestion; Z11.52 Encounter for screening for COVID-19
CPT/HCPCS: 93005; 85025; 80048; 36415; 83735; 85610; 80076; 84484 ×2; 83880; 99285; 87428; J8597

== ENCOUNTER 2025-08-14 11:06 | Emergency (ER) | payer OTHER ==
--- OUTSIDE RECORDS SUMMARY | 2025-08-14 11:10 | XMS REPORT | Clinical Summary ---
Author Name Unknown Organization [facility] Address [address] [place] [address] Care Team Providers Care Microcomputer Technician Name Role Phone Kyle Godinez Unavailable [phone] Jessy Munroe MD Unavailable [phone] Andrea Martinez MD Primary Care Provider [phone] Susanna Hayes MD Unavailable [phone] Allergies Active Allergy Reactions Criticality Noted Date [...] from 03/21/2023:Stage IB(cT2, cN0(f), cM0, G2, ER+, WI+, HER2-) - Unsigned Pathologic:Stage IA(pT1a, pN0, cM0, G2, ER+, WI+, HER2-) - Signed by Andrea Martinez MD on 06/19/2023 Overview (05/21/2023): Added automatically from request for surgery [id number] Systemic lupus erythematosus 12/08/2015 Hypertensive disorder 12/08/2015 [...] - PCV) 1969 COVID-19 Vaccine (3 - season) 07/27/202507/2021, 02/11/2021 Influenza Vaccine (#1) 2025 10/17/2019 Insurance MEDICARE PART [place] [id number] Care Teams Microcomputer Technician Relationship Specialty Start Date End Date Kyle Godinez PA [address] [place] [address] PCP - External Primary Care Provider Family Practice 04/20/23 Jessy Munroe MD [address] [address] [email or web address] PCP - External Referring Surgical Oncology 04/20/23 Andrea Martinez MD [address] [place] [id number] [email or web address] PCP - General Breast Medical Oncology 05/08/23 Susanna Hayes MD [facility] [place] [address] [email or web address] Physician Radiation Oncology 06/22/23
[2025-08-14] MEDS ORDERED: HYDROCODONE/APAP 5/325 MG TAB ONE (11:40)
--- NOTE | 2025-08-14 12:08 | RAD REPORT ---
EXAMINATION: ONE VIEW CHEST XR CLINICAL INDICATION: Female, 75 years old.,cough, congestion TECHNIQUE: Frontal chest projection is submitted. Examination is limited by patient positioning and t echnique. COMPARISON: 07/18/2024 FINDINGS: The lungs are well inflated and clear. No pneumothorax or sizable effusion. The heart is normal in s ize. Mediastinal contours are unremarkable. IMPRESSION: No acute intrathoracic abnormalities.
[2025-08-14 12:36] LABS: Absolute Lymphocytes (CBC) 1.7 K/uL (0.7-4.9); Hematocrit 36.4 % (36.0-45.0); Hemoglobin 12.4 g/dL (12.0-15.0); MCH 30.5 pg (27.0-35.0); MCHC 33.9 g/dL (32.0-36.0); MCV 89.7 fL (80-100); MPV 9.3 fL (7.6-11.3); Nucleated RBC Absolute Count 0.0 (0-0); Nucleated Red Blood Cells % 0.1 % (0-0); RBC Red Blood Cell Count 4.06 M/uL (3.86-4.86); White Blood Count 7.10 thou/uL (4.3-10.9)
[2025-08-14 12:49] LABS: Sqamous Epithelial <5 /HPF (None Seen); Urine Micro Reflex YN NO BILL MICROSCOPIC; Urine Yeast (Budding) Trace /HPF (None Seen)
[2025-08-14 12:51] LABS: Anion Gap 9.7 mEq/L (5.0-15.0); BUN Blood Urea Nitrogen 20.0 mg/dL (7-18); Glucose Level 152.0 mg/dL (74-106); Potassium 4.7 mEq/L (3.5-5.1)
[2025-08-14 12:54] LABS: Influenza A Ag Negative; Influenza B Ag Negative; SARS-CoV-2 Antigen Rapid Res Negative (Negative)
--- NOTE | 2025-08-14 13:37 | EDPHYS ---
Physician Documentation [facility] Name: Bridgett Gotti Age: 75 yrs Sex: Female : 1950 Arrival Date: 08/14/2025 Time: 11:06 Bed 19 Private MD: ED Physician Gabe Waggoner HPI: 08/14 15:00 This 75 yrs old Female presents to ER via Ambulatory with complaints of Headache, ms3 Confusion, Low Back Pain, Trouble Walking, Shortness Of Breath. 15:00 75-year-old female past medical history of atrial fibrillation, back pain, breast ms3 cancer, depression, diabetes presents to the emergency department for dizziness, cough productive of green sputum, back pain, and bilateral feet pain. Patient states her discomfort is a 9/10 described as body aches. Patient endorses congestion and cough. She denies any alleviating or inciting factors. Historical: - Allergies: 11:14 Bactrim; ll1 11:14 Doxycycline; ll1 11:14 Sulfa (Sulfonamide Antibiotics); ll1 - PMHx: 11:14 Atrial fibrillation; Back pain; breast cancer (Unknown); Depression; Diabetes - NIDDM; ll1 Enteritis; Hypertension; Lupus; Rheumatoid Arthritis; Sleep Apnea; 11:22 Coronary atherosclerosis; stroke; ll1 - PSHx: 11:14 hysterectomy; L foot surgery x 3; Left lumpectomy; ll1 - Immunization history:: Adult Immunizations up to date. - Infectious Disease History:: Denies. - Social history:: Smoking status: Patient/guardian denies using tobacco. ROS: 15:00 Eyes: Negative for injury, pain, redness, and discharge, Cardiovascular: Negative for ms3 chest pain, and palpitations. Abdomen/GI: Negative for abdominal pain, nausea, vomiting, diarrhea, and constipation, MS/Extremity: Negative for injury and deformity, Skin: Negative for injury, rash, and discoloration, 15:00 Constitutional: Positive for body aches, 15:00 Respiratory: Positive for cough, Exam: 15:00 Constitutional: This is a well developed, well nourished patient who is awake, alert, ms3 and in no acute distress. Cardiovascular: Regular rate and rhythm with a normal S1 and S2. No gallops, murmurs, or rubs. Normal PMI, no JVD. No pulse deficits. Respiratory: Lungs have equal breath sounds bilaterally, clear to auscultation and percussion. No rales, rhonchi or wheezes noted. No increased work of breathing, no retractions or nasal flaring. Abdomen/GI: Soft, non-tender, with normal bowel sounds. No distension or tympany. No guarding or rebound. No evidence of tenderness throughout. Skin: Warm, dry with normal turgor. Normal color with no rashes, no lesions, and no evidence of cellulitis. MS/ Extremity: Pulses equal, no cyanosis. Neurovascular intact. Full, normal range of motion. Vital Signs: 11:15 BP 108 / 88; Pulse 73; Resp 22; Temp 97.5; Pulse Ox 96% on R/A; Weight 95.25 kg; Height ll1 5 ft. 1 in. ; Pain 9/10; 12:05 BP 115 / 95; Pulse 66; Resp 18; Pulse Ox 98% on R/A; kj2 13:05 BP 128 / 55; Pulse 68; Resp 20; Temp 98; Pulse Ox 100% on R/A; kj2 11:15 Body Mass Index 39.68 (95.25 kg, 154.94 cm) ll1 11:15 Pain Scale: Adult ll1 MDM: 11:24 Medical Screening Exam initiated ms3 15:00 Differential diagnosis: Headache versus flu versus COVID versus electrolyte abnormality ms3 versus UTI. Data reviewed: vital signs, nurses notes, lab test result(s), and as a result, I will discharge patient. Data reviewed: radiologic studies, plain films. I considered the following discharge prescriptions or medication management in the emergency department Medications were administered in the Emergency Department. See MAR. Independent interpretation of the following test(s) in the Emergency Department X-Ray: My interpretation is Chest x-ray image reviewed by me does not reveal pneumonia. Counseling: I had a detailed discussion with the patient and/or guardian regarding the historical points, exam findings, and any diagnostic results supporting the discharge/admit diagnosis, lab results, radiology results. Special discussion: I discussed with the patient/guardian in detail that at this point there is no indication for admission to the hospital. It is understood, however, that if the symptoms persist or worsen the patient needs to return immediately for re-evaluation. ED course: Discussed labs and imaging with patient. Patient to follow-up with primary care physician 2 to 3 days. Patient understands and agrees with plan. All questions were answered. Return precautions were discussed to include worsening symptoms, or any other concerns. 08/14 11:24 Order name: CBC with Diff; Complete Time: 13:10 ms3 08/14 11:24 Order name: BMP; Complete Time: 13:10 ms3 08/14 11:24 Order name: COVID-19 Ag + Flu A+B Ag; Complete Time: 13:10 ms3 08/14 11:25 Order name: UA W/ Microscopic; Complete Time: 13:10 ms3 08/14 11:24 Order name: CXR XRAY; Complete Time: 12:23 ms3 Administered Medications: 11:54 Drug: HYDROcodone-acetaminophen PO 5 mg-325 mg 1 tabs PO once {Note: pain 08/05 RASS 0.} ll1 Route: PO; 13:47 Follow up: Response: No adverse reaction kj2 Disposition Summary: 08/14/25 13:36 Discharge Ordered Notes: Location: Home ms3 Condition: Stable ms3 Diagnosis - Myalgia ms3 - Cough ms3 - Nasal congestion ms3 - Headache ms3 Followup: ms3 - With: Private Physician - When: 2 - 3 days - Reason: Recheck today's complaints Discharge Instructions: - Discharge Summary Sheet ms3 - General Headache Without Cause ms3 - Upper Respiratory Infection, Adult, [id number] ms3 - Cough, Adult ms3 Forms: - Medication Reconciliation Form ms3 - Antibiotic Education ms3 - Prescription Opioid Use ms3 - Patient Portal Instructions ms3 - Leadership Thank You Letter ms3 Prescriptions: - Tessalon Perles 100 mg Oral Capsule - take 1 capsule ORAL route every 8 hours As needed; 15 capsule; Refills: 0, ms3 Product Selection Permitted Signatures: Dispatcher [employer] EDMS Yaron Madrigal RN RN ll1 Gabe Waggoner DO DO ms3 Temi Ennis, RN RN kj2 Corrections: (The following items were deleted from the chart) 11:25 11:25 CBC+H.LAB.BRZ ordered. EDMS EDMS 11:25 11:25 BASIC METABOLIC PANEL+C.LAB.BRZ ordered. EDMS EDMS 11:25 11:25 COVID-19 Ag + Flu A+B Ag+I.LAB.BRZ ordered. EDMS EDMS 11:25 11:25 Chest Single View+RAD.RAD.BRZ ordered. EDMS EDMS
--- NOTE | 2025-08-14 13:37 | ER ---
Nurse's Notes [facility] Name: Bridgett Gotti Age: 75 yrs Sex: Female : 1950 Arrival Date: 08/14/2025 Time: 11:06 Bed 19 Private MD: Diagnosis: Myalgia;Cough;Nasal congestion;Headache Presentation: 08/14 11:15 Chief complaint: Patient states: OBREGON since Sunday. Feet and back hurt. Seeing colors ll1 in vision off/on for 3 days. No fever. Coronavirus screen: Client denies travel out of the [place] in the last 14 days. At this time, the client does not indicate any symptoms associated with coronavirus-19. Ebola Screen: Patient denies travel to an Ebola-affected area in the 21 days before illness onset. Initial Sepsis Screen: Does the patient meet any 2 criteria? No. Patient's initial sepsis screen is negative. Does the patient have a suspected source of infection? No. Patient's initial sepsis screen is negative. Risk Assessment: Do you want to hurt yourself or someone else? Patient reports no desire to harm self or others. Onset of symptoms was August 12, 2025. 11:15 Method Of Arrival: Ambulatory ll1 11:15 Acuity: LASHONDA 3 ll1 Triage Assessment: 11:15 General: Appears distressed, uncomfortable, Behavior is calm, cooperative, appropriate ll1 for age. Pain: Complains of pain in back Pain currently is 9 out of 10 on a pain scale. Quality of pain is described as aching, throbbing, Pain began 2-3 days ago. Neuro: Reports headache weakness. Respiratory: Reports cough that is. GI: Reports nausea. Musculoskeletal: Reports back and feet pain. 12:05 Headache History: Denies prior headaches. Pain: Also complains of no other associated kj2 symptoms. Historical: - Allergies: 11:14 Bactrim; ll1 11:14 Doxycycline; ll1 11:14 Sulfa (Sulfonamide Antibiotics); ll1 - PMHx: 11:14 Atrial fibrillation; Back pain; breast cancer (Unknown); Depression; Diabetes - NIDDM; ll1 Enteritis; Hypertension; Lupus; Rheumatoid Arthritis; Sleep Apnea; 11:22 Coronary atherosclerosis; stroke; ll1 - PSHx: 11:14 hysterectomy; L foot surgery x 3; Left lumpectomy; ll1 - Immunization history:: Adult Immunizations up to date. - Infectious Disease History:: Denies. - Social history:: Smoking status: Patient/guardian denies using tobacco. Screenin:05 [facility] ED Fall Risk Assessment (Adult) History of falling in the last 3 months, kj2 including since admission No falls in past 3 months (0 pts) Confusion or Disorientation No (0 pts) Intoxicated or Sedated No (0 pts) Impaired Gait No (0 pts) Mobility Assist Device Used No (0 pt) Altered Elimination No (0 pt) Score/Fall Risk Level 0 - 2 = Low Risk Maintained a safe environment, Hourly rounding (assess needs \T\ fall precautionary measures) done. Abuse screen: Denies threats or abuse. Denies injuries from another. Nutritional screening: No deficits noted. Tuberculosis screening: No symptoms or risk factors identified. Assessment: 11:48 Reassessment: No changes from previously documented assessment. Patient and/or family ll1 updated on plan of care and expected duration. Pain level reassessed. 12:05 Reassessment: Patient appears in no apparent distress at this time. No changes from kj2 previously documented assessment. Patient and/or family updated on plan of care and expected duration. Pain level reassessed. 13:05 Reassessment: Patient appears in no apparent distress at this time. Patient and/or kj2 family updated on plan of care and expected duration. Pain level reassessed. Patient is alert, oriented x 3, equal unlabored respirations, skin warm/dry/pink. Vital Signs: 11:15 BP 108 / 88; Pulse 73; Resp 22; Temp 97.5; Pulse Ox 96% on R/A; Weight 95.25 kg; Height ll1 5 ft. 1 in. ; Pain 9/10; 12:05 BP 115 / 95; Pulse 66; Resp 18; Pulse Ox 98% on R/A; kj2 13:05 BP 128 / 55; Pulse 68; Resp 20; Temp 98; Pulse Ox 100% on R/A; kj2 11:15 Body Mass Index 39.68 (95.25 kg, 154.94 cm) ll1 11:15 Pain Scale: Adult ll1 ED Course: 11:07 Patient arrived in ED. im 11:16 Triage completed. ll1 11:16 Arm band placed on. ll1 11:19 Waggoner, Gabe, DO is Attending Physician. ms3 11:46 CXR XRAY In Process Unspecified. EDMS 11:48 Patient placed in an exam room, on a stretcher. ll1 12:05 Patient has correct armband on for positive identification. Bed in low position. Call kj2 light in reach. Adult w/ patient. Provided Education on: CALL LIGHT. 12:28 COVID-19 Ag + Flu A+B Ag Sent. ts3 12:28 Initial lab(s) drawn, by supervisor cytogenetic laboratory, sent to lab. Inserted saline lock: 20 gauge in right ts3 antecubital area, using aseptic technique. Blood collected. Flushed with 10 mL NS. 12:29 Urine collected: clean catch specimen, sent to lab. ts3 12:33 Temi Ennis, RN is Primary Nurse. kj2 13:48 No provider procedures requiring assistance completed. IV discontinued, intact, kj2 bleeding controlled, No redness/swelling at site. Pressure dressing applied. Administered Medications: 11:54 Drug: HYDROcodone-acetaminophen PO 5 mg-325 mg 1 tabs PO once {Note: pain 9/10 RASS 0.} ll1 Route: PO; 13:47 Follow up: Response: No adverse reaction kj2 Medication: 12:35 VIS not applicable for this client. kj2 Outcome: 13:36 Discharge ordered by . ms3 13:48 Discharged to home ambulatory, kj2 13:48 Condition: stable 13:48 Discharge instructions given to patient, family, Instructed on discharge instructions, follow up and referral plans. Demonstrated understanding of instructions, follow-up care, 14:22 Patient left the ED. kj2 Signatures: Dispatcher [employer] EDMS Yaron Madrigal, RN RN ll1 Gabe Waggoner DO DO ms3 Elisa Busby Krystal, RN RN kj2 Yanelis Chandler ts3 Corrections: (The following items were deleted from the chart) 11:23 11:15 BP 108 / 88; Pulse 73bpm; Resp 17bpm; Pulse Ox 96% RA; Temp 97.5F; 95.25 kg; ll1 Height 5 ft. 1 in.; BMI: 39.6; Pain 9/10, Adult; ll1
[2025-08-14 14:30] VITALS: BP 128/55; TEMP 98; O2SAT 100
== END 2025-08-14 14:22 | disposition home or self-care (01) ==
LOC: ER 11:06
DX: M79.10 Myalgia, unspecified site (principal); R05.9 Cough, unspecified; R09.81 Nasal congestion; R51.9 Headache, unspecified; M54.50 Low back pain, unspecified; Z11.52 Encounter for screening for COVID-19
CPT/HCPCS: 36415; 71045; 80048; 81001; 85025; 87428; 99284

== ENCOUNTER 2025-09-22 10:13 | Emergency (ER) | payer OTHER ==
--- NOTE | 2025-09-22 11:56 | RAD REPORT ---
EXAMINATION: ONE VIEW CHEST XR CLINICAL INDICATION: Female, 75 years old.,SOB TECHNIQUE: Frontal chest projection is submitted. Examination is limited by patient positioning and t echnique. COMPARISON: 08/14/2025 FINDINGS: The lungs are well inflated and clear. No pneumothorax or sizable effusion. The heart is normal in s ize. Mediastinal contours are unremarkable. IMPRESSION: No acute intrathoracic abnormalities.
--- NOTE | 2025-09-22 11:59 | RAD REPORT ---
EXAMINATION: XR Tib Fib Right CLINICAL INDICATION: Female, 75 years old. PAIN TECHNIQUE: 2 view radiograph of the right tibia and fibula were obtained. COMPARISON: No prior exam. FINDINGS: No evidence of fracture or dislocation. Normal alignment. Mild degenerative changes. No Oth er focal bone lesion. Soft tissues are unremarkable. IMPRESSION: No acute osseous abnormalities. Mild degenerative changes.
[2025-09-22 12:04] LABS: Absolute Lymphocytes (CBC) 1.3 K/uL (0.7-4.9); Hematocrit 37.4 % (36.0-45.0); Hemoglobin 12.6 g/dL (12.0-15.0); MCH 30.5 pg (27.0-35.0); MCHC 33.6 g/dL (32.0-36.0); MCV 90.8 fL (80-100); MPV 9.3 fL (7.6-11.3); Nucleated RBC Absolute Count 0.0 (0-0); Nucleated Red Blood Cells % 0.0 % (0-0); RBC Red Blood Cell Count 4.12 M/uL (3.86-4.86); White Blood Count 6.10 thou/uL (4.3-10.9)
--- NOTE | 2025-09-22 12:11 | RAD REPORT ---
EXAM: CT brain without contrast HISTORY: TRAUMA COMPARISON: 10/12/[address] TECHNIQUE: Multiple contiguous axial images were obtained and a CT of the brain without contrast. Sag ittal and coronal reformats were performed. FINDINGS: No evidence of hydrocephalus, intracranial hemorrhage, or extra-axial fluid collection. Right centrum semiovale focus of hypoattenuation corresponds to findings on prior CT and MRI. Mild br ain atrophy with other nonspecific mild periventricular and deep white matter hypodensity suggestive of chronic microvascular ischemic changes present. The calvarium is intact. The visualized paranasal sinuses and mastoid air cells are essentially clear . IMPRESSION: No evidence of acute intracranial abnormality. EXAM: CT of the cervical spine without contrast HISTORY: TRAUMA COMPARISON: None TECHNIQUE: Multiple contiguous axial images were obtained in a CT of the cervical spine without contr ast. Sagittal and coronal reformats were performed. FINDINGS: The vertebral bodies demonstrate normal height and alignment. No evidence of acute fracture or subluxation.. Moderate multilevel degenerative changes are present. No prevertebral soft tissue swelling is seen. The posterior facets are well aligned. Normal alignment of the skull base with the cervical spine is seen. The lung apices are unremarkable. IMPRESSION: No evidence of acute osseous abnormality of the cervical spine. Moderate multilevel cervical spine de generative changes.
[2025-09-22 12:12] LABS: PT Prothrombin Time 11.8 SECONDS (10-13.0); PTT, Activated Partial Thromb 43.3 SECONDS (27.2-37.4); Protime INR 1.05
[2025-09-22 12:22] LABS: ALT/SGPT 19.0 U/L (13-56); AST/SGOT 24.0 U/L (15-37); Albumin 3.0 g/dL (3.4-5.0); Albumin/Globulin Ratio 0.7 (1.1-1.8); Alkaline Phosphatase 91.0 U/L (45-117); Anion Gap 9.9 mEq/L (5.0-15.0); BUN Blood Urea Nitrogen 14.0 mg/dL (7-18); Bilirubin Indirect, Calculated 0.5 mg/dL (0.2-0.8); Globulin 4.4 g/dL (2.3-3.5); Glucose Level 163.0 mg/dL (74-106); Magnesium 1.9 mg/dL (1.6-2.4); Potassium 3.9 mEq/L (3.5-5.1); Troponin High Sensitivity 18.2 pg/mL (<58.9)
[2025-09-22] MEDS ORDERED: HYDROCODONE/APAP 7.5/325 MG TAB ONE (13:10)
[2025-09-22] MEDS ORDERED: CEPHALEXIN 250 MG CAP ONE (13:48)
--- NOTE | 2025-09-22 13:56 | ER ---
Nurse's Notes [facility] Name: Bridgett Gotti Age: 75 yrs Sex: Female : 1950 Arrival Date: 09/22/2025 Time: 10:13 Bed 12 Private MD: Diagnosis: Fall on same level, unspecified;Abrasion of lower leg Presentation: 09/22 10:36 Chief complaint: Patient states: she is having bilateral leg pain, of which she rates ap3 an 8/10 on the pain scale. patient reports she fell this morning injuring her right leg. Coronavirus screen: At this time, the client does not indicate any symptoms associated with coronavirus-19. Ebola Screen: No symptoms or risks identified at this time. Initial Sepsis Screen: Does the patient meet any 2 criteria? No. Patient's initial sepsis screen is negative. Does the patient have a suspected source of infection? No. Patient's initial sepsis screen is negative. Risk Assessment: Do you want to hurt yourself or someone else? Patient reports no desire to harm self or others. Onset of symptoms was September 21, 2025. 10:36 Method Of Arrival: Wheelchair ap3 10:36 Acuity: LASHONDA 3 ap3 Triage Assessment: 10:40 General: Appears in no apparent distress. Behavior is calm, cooperative, appropriate ap3 for age. Pain: Complains of pain in right leg and left leg Pain currently is 8 out of 10 on a pain scale. Pain began this morning. Neuro: Level of Consciousness is awake, alert, obeys commands, Oriented to person, place, time, situation, Appropriate for age Speech is normal. Cardiovascular: Patient's skin is warm and dry. Respiratory: Airway is patent Respiratory effort is even, unlabored, Respiratory pattern is regular, symmetrical. Historical: - Allergies: 10:38 Sulfa (Sulfonamide Antibiotics); ap3 10:38 Bactrim; ap3 10:38 Doxycycline; ap3 - PMHx: 10:38 Atrial fibrillation; Back pain; breast cancer (Unknown); coronary atherosclerosis; ap3 Depression; Diabetes - NIDDM; Enteritis; Hypertension; Lupus; Rheumatoid Arthritis; Sleep Apnea; stroke; - PSHx: 10:38 hysterectomy; L foot surgery x 3; Left lumpectomy; ap3 - Immunization history:: Adult Immunizations up to date. - Infectious Disease History:: Denies. - Social history:: Smoking status: Patient/guardian denies using tobacco. Screenin:41 Abuse screen: Denies threats or abuse. Nutritional screening: No deficits noted. ap3 Tuberculosis screening: No symptoms or risk factors identified. 14:10 [facility] ED Fall Risk Assessment (Adult) History of falling in the last 3 months, ap3 including since admission Yes- single mechanical fall (1 pt) Confusion or Disorientation No (0 pts) Intoxicated or Sedated No (0 pts) Impaired Gait Yes (1 pt) Mobility Assist Device Used No (0 pt) Altered Elimination No (0 pt) Score/Fall Risk Level 0 - 2 = Low Risk Oriented to surroundings, Maintained a safe environment, Educated pt \T\ family on fall prevention, incl call for assistance when getting out of bed, Assessed \T\ reinforced patient's understanding of fall precautions, Hourly rounding (assess needs \T\ fall precautionary measures) done, Used ambulatory aids as needed (educated on \T\ assisted with). Primary Survey: 14:10 NO uncontrolled hemorrhage observed. A: The client is awake and alert. The airway is ap3 patent. Breathing/Chest: Spontaneous respiratory effort, equal unlabored respirations, breath sounds clear bilaterally, regular pattern, symmetrical chest rise and fall. Circulation: No external hemorrhage present. Regular and strong central pulse, skin warm/dry/normal color. Disability Client is alert. Exposure/Environment: A warming method has been applied: A warm blanket has been provided to the patient. Vital Signs: 10:36 BP 134 / 59; Pulse 79; Resp 19; Temp 97.8; Pulse Ox 94% on R/A; Weight 99.79 kg; Height ap3 5 ft. 1 in. ; Pain 8/10; 14:17 Pulse 74; Resp 19; Pulse Ox 100% ; Pain 4/10; ap3 10:36 Body Mass Index 41.57 (99.79 kg, 154.94 cm) ap3 10:36 Pain Scale: Adult ap3 14:17 Pain Scale: Adult ap3 ED Course: 10:16 Patient arrived in ED. mr 10:18 Elma Ramirez PA-C is PHCP. sb4 10:18 Gabe Waggoner DO is Attending Physician. sb4 10:38 Triage completed. ap3 10:41 Arm band placed on right wrist. ap3 11:07 Chest Single View XRAY In Process Unspecified. EDMS 11:07 Tib Fib Right XRAY In Process Unspecified. EDMS 11:10 CT Head C Spine In Process Unspecified. EDMS 12:02 EKG done, by senior director of global commercial technology solutions. reviewed by Elma Ramirez PA-C. ts3 12:02 Initial lab(s) drawn, by minilab operator, sent to lab. Inserted saline lock: 20 gauge in right ts3 antecubital area, using aseptic technique. Blood collected. Flushed with 10 mL NS. 14:09 Dressings: ABD pad X 1; right leg Roscoe x 1 right leg. Irrigation on right leg ap3 irrigated with normal saline. 14:10 Patient has correct armband on for positive identification. Provided Education on: ap3 medication prior to administration. 14:11 No provider procedures requiring assistance completed. IV discontinued, intact, ap3 bleeding controlled, No redness/swelling at site. Pressure dressing applied. Administered Medications: 13:32 Drug: Hydrocodone-Acetaminophen PO (7.5 mg-325 mg) 1 tabs PO once Route: PO; ap3 14:09 Follow up: Response: No adverse reaction; Pain is decreased; RASS: Alert and Calm (0) ap3 14:09 Drug: Cephalexin PO 500 mg PO once Route: PO; ap3 14:12 Follow up: Response: Medication Administered at Departure ap3 Medication: 14:11 VIS not applicable for this client. ap3 Outcome: 13:55 Discharge ordered by . sb4 14:18 Discharged to home via wheelchair, with family, ap3 14:18 Condition: good 14:18 Discharge instructions given to patient, Instructed on discharge instructions, follow up and referral plans. medication usage, Demonstrated understanding of instructions, follow-up care, medications, Prescriptions given X 2, 14:18 Patient left the ED. ap3 Signatures: Dispatcher [employer] EDMS MontielTasia flanagan, Reg Reg mr Caroline Hayward, RN RN ap3 Elma Ramirez PA-C PA-C sb4 Yanelis Chandler ts3
--- NOTE | 2025-09-22 13:56 | EDPHYS ---
Physician Documentation [facility] Name: Bridgett Gotti Age: 75 yrs Sex: Female : 1950 Arrival Date: 09/22/2025 Time: 10:13 Bed 12 Private MD: ED Physician Gabe Waggoner HPI: 09/22 10:51 This 75 yrs old Female presents to ER via Wheelchair with complaints of Leg Swelling, sb4 Fall Injury, Weakness. 10:51 Patient states that she was at the [place] this morning when she stepped in a hole sb4 and fell. She states that she struck the back of her head on the ground, and injured her right hernandez. She did not lose consciousness. Is complaining of pain in her head and her hernandez. Also states that her legs have been more swollen than usual, she has pain in her right hip, and gets short of breath with exertion. Reports extensive medical history, does see cardiology and has a follow-up later this month. Historical: - Allergies: 10:38 Sulfa (Sulfonamide Antibiotics); ap3 10:38 Bactrim; ap3 10:38 Doxycycline; ap3 - PMHx: 10:38 Atrial fibrillation; Back pain; breast cancer (Unknown); coronary atherosclerosis; ap3 Depression; Diabetes - NIDDM; Enteritis; Hypertension; Lupus; Rheumatoid Arthritis; Sleep Apnea; stroke; - PSHx: 10:38 hysterectomy; L foot surgery x 3; Left lumpectomy; ap3 - Immunization history:: Adult Immunizations up to date. - Infectious Disease History:: Denies. - Social history:: Smoking status: Patient/guardian denies using tobacco. ROS: 10:51 Constitutional: Negative for fever, chills, and weight loss, sb4 10:51 MS/extremity: Positive for swelling, of the right leg and left leg, 10:51 Skin: Positive for abrasion(s), of the right hernandez, 10:51 Neuro: Positive for headache, 10:51 All other systems are negative, Exam: 10:51 Head/Face: Normocephalic, atraumatic. Eyes: Extra-ocular motions intact. Periorbital sb4 areas with no swelling, redness, or edema. ENT: Mucous membranes moist. Respiratory: No increased work of breathing, no retractions or nasal flaring. Abdomen/GI: Soft, non-tender, no distension. 10:51 Constitutional: The patient appears in no acute distress, alert, awake, 10:51 Cardiovascular: Rate: normal, Rhythm: regular, Edema: 1+ edema to level of left ankle and right ankle, 10:51 Skin: injury, abrasion(s), moderate sized abrasion noted, of the right hernandez, Vital Signs: 10:36 BP 134 / 59; Pulse 79; Resp 19; Temp 97.8; Pulse Ox 94% on R/A; Weight 99.79 kg; Height ap3 5 ft. 1 in. ; Pain 8/10; 14:17 Pulse 74; Resp 19; Pulse Ox 100% ; Pain 4/10; ap3 10:36 Body Mass Index 41.57 (99.79 kg, 154.94 cm) ap3 10:36 Pain Scale: Adult ap3 14:17 Pain Scale: Adult ap3 MDM: 10:25 Medical Screening Exam initiated sb4 14:01 Differential diagnosis: abrasion, closed head injury, contusion, fracture, laceration, sb4 multiple trauma, sprain, strain. Data reviewed: vital signs, nurses notes, lab test result(s), EKG, radiologic studies, and as a result, I will discharge patient. Care significantly affected by the following chronic conditions: Diabetes, Hypertension, Obesity. Counseling: I had a detailed discussion with the patient and/or guardian regarding the historical points, exam findings, and any diagnostic results supporting the discharge/admit diagnosis, the presence of at least one elevated blood pressure reading (>120/80) during this emergency department visit, lab results, radiology results, the need for outpatient follow up, for definitive care, to return to the emergency department if symptoms worsen or persist or if there are any questions or concerns that arise at home. 14:02 Special discussion: I discussed with the patient/guardian in detail that at this point sb4 there is no indication for admission to the hospital. It is understood, however, that if the symptoms persist or worsen the patient needs to return immediately for re-evaluation. 09/22 10:46 Order name: Basic Metabolic Panel; Complete Time: 12:24 sb4 09/22 10:46 Order name: CBC with Diff; Complete Time: 12:09 sb4 09/22 10:46 Order name: Hepatic Function; Complete Time: 12:24 sb4 09/22 10:46 Order name: Magnesium; Complete Time: 12:24 sb4 09/22 10:46 Order name: Protime (+inr); Complete Time: 12:12 sb4 09/22 10:46 Order name: Ptt, Activated; Complete Time: 12:12 sb4 09/22 10:46 Order name: Troponin High Sensitivity; Complete Time: 12:24 sb4 09/22 10:46 Order name: CT Head C Spine; Complete Time: 12:12 sb4 09/22 10:46 Order name: Chest Single View XRAY; Complete Time: 11:58 sb4 09/22 10:46 Order name: Tib Fib Right XRAY; Complete Time: 11:59 sb4 09/22 10:46 Order name: EKG - Nurse/Tech; Complete Time: 12:02 sb4 09/22 10:46 Order name: IV Saline Lock; Complete Time: 12:02 sb4 09/22 10:46 Order name: Labs collected and sent; Complete Time: 12:02 sb4 09/22 10:46 Order name: O2 Per Protocol; Complete Time: 14:17 sb4 09/22 10:46 Order name: O2 Sat Monitoring; Complete Time: 14:17 sb4 09/22 10:46 Order name: Wound Care; Complete Time: 14:09 sb4 EC:02 Rate is 77 beats/min. Left axis deviation noted. OK interval is prolonged at 248 msec. sb4 QRS interval is normal at 110 msec. QT interval is normal at 420 msec. Clinical impression: 1st degree heart block. Interpreted by me. Reviewed by me. Administered Medications: 13:32 Drug: Hydrocodone-Acetaminophen PO (7.5 mg-325 mg) 1 tabs PO once Route: PO; ap3 14:09 Follow up: Response: No adverse reaction; Pain is decreased; RASS: Alert and Calm (0) ap3 14:09 Drug: Cephalexin PO 500 mg PO once Route: PO; ap3 14:12 Follow up: Response: Medication Administered at Departure ap3 Disposition: 18:23 I was immediately available on-site in the Emergency Department for consultation in the co3 care of the patient. Disposition Summary: 09/22/25 13:55 Discharge Ordered Notes: Location: Home sb4 Problem: new sb4 Symptoms: have improved sb4 Condition: Stable sb4 Diagnosis - Fall on same level, unspecified sb4 - Abrasion of lower leg sb4 Followup: sb4 - With: Private Physician - When: As needed - Reason: Recheck today's complaints, Re-evaluation by your physician Discharge Instructions: - Discharge Summary Sheet sb4 - Musculoskeletal Pain sb4 - Fall Prevention in the Home, Adult, [id number] sb4 - Wound Care, Adult sb4 Forms: - Antibiotic Education sb4 - Prescription Opioid Use sb4 - Patient Portal Instructions sb4 - Leadership Thank You Letter sb4 Prescriptions: - Cephalexin 500 mg Oral capsule - take 1 capsule ORAL route every 12 hours for 7 days; 14 capsule; Refills: 0, sb4 Product Selection Permitted - Tramadol 50 mg Oral Tablet - take 1 tablet ORAL route every 8 hours as needed; 12 tablet; Refills: 0, sb4 Product Selection Permitted Signatures: Dispatcher [employer] Caroline Steiner RN RN ap3 Gabe Waggoner DO DO ms3 Elma Ramirez PA-C PA-C sb4 Corrections: (The following items were deleted from the chart) 10:46 10:46 Tib Fib Right+[id number] ordered. EDMS EDMS 14:17 10:46 Cardiac monitoring ordered. sb4 ap3
[2025-09-22 17:48] VITALS: BP 134/59; TEMP 97.8
[2025-09-22 17:58] VITALS: O2SAT 100
== END 2025-09-22 14:18 | disposition home or self-care (01) ==
LOC: ER 10:13
DX: S80.811A Abrasion, right lower leg, initial encounter (principal); R51.9 Headache, unspecified; W18.30XA Fall on same level, unspecified, initial encounter
CPT/HCPCS: 36415; 70450; 71045; 72125; 80048; 80076; 83735; 84484; 85025; 85610; 85730; 93005; 99284